=== PATIENT | female | born 1970 | race Caucasian/White ===

== ENCOUNTER 2020-07-06 14:32 | Emergency (ER) | payer OTHER ==
[~2020-07-06] VITALS: Ht 162.6 cm; Wt 127.0 kg
[2020-07-06] MEDS ORDERED: LATUDA80 MG PO (15:41)
[2020-07-06] MEDS ORDERED: MIRTAZAPINE45 MG PO (15:42)
[2020-07-06] MEDS ORDERED: CYMBALTA20 MG PO (15:42)
[2020-07-06] MEDS ORDERED: SAPHRIS10 MG SL (15:43)
[2020-07-06] MEDS ORDERED: LAMICTAL200 MG PO (15:43)
[2020-07-06] MEDS ORDERED: RITALIN LA20 MG PO (15:44)
[2020-07-06] MEDS ORDERED: PREDNISONE20 MG PO (15:51)
[2020-07-06] MEDS ORDERED: MORPHINE SULFAT15 MG PO (15:51)
--- OUTSIDE RECORDS SUMMARY | 2020-07-06 16:28 | XMS ---
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 Security Galvanizing Pot Runner Events No recent Security Events currently on file CRITERIA MET - 6 ED Visits in 6 Months - [facility] - 3 Facilities in 90 Days - [facility] - 2 Visits in 30 Days [facility] PH[facility]: [phone] Eleuterio has no Care Guidelines for this patient. Mitch VISIT COUNT (12 MO.) [address] [place] [address] TOTAL 18 NOTE: Visits indicate total known visits. ED/UCC VISIT TRACKING (12 MO.) 07/06/2020 14:34 [facility] TYPE: Emergency COMPLAINT: - R LEG/HIP PAIN/SWELLING 06/26/2020 16:55 [facility] TYPE: Emergency COMPLAINT: - Unspecified abdominal pain - Nausea with vomiting, unspecified DIAGNOSES: 1. Unspecified abdominal pain 2. Frequency of micturition 3. Fatty (change of) liver, not elsewhere classified 4. Acquired absence of other specified parts of digestive tract 5. Acquired absence of kidney 6. Nicotine dependence, cigarettes, uncomplicated 06/22/2020 11:53 [facility] TYPE: Emergency COMPLAINT: - CHEST PAIN 05/19/2020 12:[facility] [place] [facility] TYPE: Emergency DIAGNOSES: - Leg pain - Pain in right leg - Leg Pain (Non-traumatic) 05/13/2020 18:06 [facility] TYPE: Emergency DIAGNOSES: - Leg Pain - Leg Pain (Non-traumatic) - Pain in right thigh - Other reduced mobility - Essential (primary) hypertension 04/15/2020 17:29 [facility] TYPE: Emergency DIAGNOSES: - Leg Pain (Non-traumatic) - Pain in right leg - Chest Pain - Pleurodynia - Chest and leg pain; leg swelling 03/25/2020 17:38 [facility] TYPE: Emergency DIAGNOSES: - Chest Pain - Cough - Pneumonia, unspecified organism - Shortness of Breath - Sore Throat; Cough 03/07/2020 17:10 [facility] TYPE: Emergency DIAGNOSES: - Other chest pain - Shortness of Breath - Chest Pain 2020 13:18 [facility] TYPE: Emergency DIAGNOSES: - Chronic obstructive pulmonary disease with (acute) exacerbation - Shortness of Breath - Chills - Cough - Shortness Of Breath; Back Pain - Mild persistent asthma with (acute) exacerbation 01/29/2020 18:13 [facility] TYPE: Emergency DIAGNOSES: - Back Pain - Pain in thoracic spine 01/12/2020 13:18 [facility] TYPE: Emergency DIAGNOSES: - Contusion of left hand, initial encounter - Hand Injury - Hand Pain 12/14/2019 13:57 [facility] TYPE: Emergency DIAGNOSES: - Unspecified abdominal pain - Blood In Stool - Blood In Stool; Chills - Abdominal Pain - Fever (9 Weeks To 74 Years) 12/02/2019 16:58 [facility] TYPE: Emergency DIAGNOSES: - Abdominal Pain - Left lower quadrant pain - Abdominal Pain; Incontinence 11/20/2019 20:44 [facility] TYPE: Emergency DIAGNOSES: - Left lower quadrant pain - Abdominal Pain - Nausea,Blood in Stool 11/06/2019 15:02 [facility] [place] [facility] TYPE: Emergency DIAGNOSES: - Unspecified abdominal pain - Other chronic pain - abdominal pain - Melena 10/27/2019 17:18 [facility] [place] [facility] TYPE: Emergency DIAGNOSES: - Abdominal Pain; Blood in Stool - Abdominal Pain - Left lower quadrant pain 08/18/2019 16:48 [facility] TYPE: Emergency DIAGNOSES: - Shoulder Pain - Other acute postprocedural pain 08/11/2019 23:51 [facility] DIAGNOSES: - Post Op Pain - Pain in left shoulder - Post Op Problem - Post-op Problem - Other acute postprocedural pain INPATIENT VISIT TRACKING (12 MO.) No inpatient visits to display in this time frame [email or web address]
== END 2020-07-06 16:45 | disposition home or self-care (01) ==
LOC: ED 14:32
DX: M54.41 Lumbago with sciatica, right side (principal); Z87.891 Personal history of nicotine dependence; Z88.8 Allergy status to other drugs, medicaments and biological substances; Z88.0 Allergy status to penicillin; Z88.1 Allergy status to other antibiotic agents; Z88.6 Allergy status to analgesic agent; Z79.899 Other long term (current) drug therapy
CPT/HCPCS: 96372; 99283-25; J1100

== ENCOUNTER 2020-07-08 10:12 | Emergency (ER) | payer OTHER ==
[~2020-07-08 10:12] MED LIST: CYMBALTA20 MG PO; LAMICTAL200 MG PO; LATUDA80 MG PO; MIRTAZAPINE45 MG PO; MORPHINE SULFAT15 MG PO; PREDNISONE20 MG PO; RITALIN LA20 MG PO; SAPHRIS10 MG SL
--- OUTSIDE RECORDS SUMMARY | 2020-07-08 10:16 | XMS ---
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 Security Plate Straightener Events No recent Security Events currently on file CRITERIA MET - 6 ED Visits in 6 Months - [facility] - 3 Facilities in 90 Days - [facility] - 2 Visits in 30 Days [facility] PHONE: [phone] Eleuterio has no Care Guidelines for this patient. Mitch VISIT COUNT (12 MO.) [address] [place] [address] TOTAL 19 NOTE: Visits indicate total known visits. ED/UCC VISIT TRACKING (12 MO.) 07/08/2020 10:13 [facility] [place] TYPE: Emergency COMPLAINT: - ARMS AND LEGS SWELLING, KIDNEY PAIN 07/06/2020 14:34 [facility] [place] TYPE: Emergency COMPLAINT: - R LEG/HIP PAIN/SWELLING 06/26/2020 16:55 [facility] [place] [facility] COMPLAINT: - Unspecified abdominal pain - Nausea with vomiting, unspecified DIAGNOSES: 1. Unspecified abdominal pain 2. Frequency of micturition 3. Fatty (change of) liver, not elsewhere classified 4. Acquired absence of other specified parts of digestive tract 5. Acquired absence of kidney 6. Nicotine dependence, cigarettes, uncomplicated 06/22/2020 11:53 [facility] [place] TYPE: [facility] COMPLAINT: - CHEST PAIN 05/19/2020 12:56 [facility] DIAGNOSES: - Leg pain - Pain in right leg - Leg Pain (Non-traumatic) 05/13/2020 18:06 [facility] TYPE: Emergency DIAGNOSES: - Leg Pain - Leg Pain (Non-traumatic) - Pain in right thigh - Other reduced mobility - Essential (primary) hypertension 04/15/2020 17:29 [facility] TYPE: Emergency DIAGNOSES: - Leg Pain (Non-traumatic) - Pain in right leg - Chest Pain - Pleurodynia - Chest and leg pain; leg swelling 03/25/2020 17:38 [facility] TYPE: Emergency DIAGNOSES: - Chest Pain - Cough - Pneumonia, unspecified organism - Shortness of Breath - Sore Throat; Cough 03/07/2020 17:10 [facility] TYPE: Emergency DIAGNOSES: - Other chest pain - Shortness of Breath - Chest Pain 2020 13:18 [facility] TYPE: Emergency DIAGNOSES: - Chronic obstructive pulmonary disease with (acute) exacerbation - Shortness of Breath - Chills - Cough - Shortness Of Breath; Back Pain - Mild persistent asthma with (acute) exacerbation 01/29/2020 18:13 [facility] TYPE: Emergency DIAGNOSES: - Back Pain - Pain in thoracic spine 01/12/2020 13:18 [facility] TYPE: Emergency DIAGNOSES: - Contusion of left hand, initial encounter - Hand Injury - Hand Pain 12/14/2019 13:57 [facility] TYPE: Emergency DIAGNOSES: - Unspecified abdominal pain - Blood In Stool - Blood In Stool; Chills - Abdominal Pain - Fever (9 Weeks To 74 Years) 12/02/2019 16:58 [facility] TYPE: Emergency DIAGNOSES: - Abdominal Pain - Left lower quadrant pain - Abdominal Pain; Incontinence 11/20/2019 20:44 [facility] TYPE: Emergency DIAGNOSES: - Left lower quadrant pain - Abdominal Pain - Nausea,Blood in Stool 11/06/2019 15:02 [facility] TYPE: Emergency DIAGNOSES: - Unspecified abdominal pain - Other chronic pain - abdominal pain - Melena 10/27/2019 17:18 [facility] TYPE: Emergency DIAGNOSES: - Abdominal Pain; Blood in Stool - Abdominal Pain - Left lower quadrant pain 08/18/2019 16:48 [facility] TYPE: Emergency DIAGNOSES: - Shoulder Pain - Other acute postprocedural pain 08/11/2019 23:51 [facility] [place] TYPE: Emergency DIAGNOSES: - Post Op Pain - Pain in left shoulder - Post Op Problem - Post-op Problem - Other acute postprocedural pain INPATIENT VISIT TRACKING (12 MO.) No inpatient visits to display in this time frame [email or web address]
[2020-07-08] MEDS ORDERED: BACTRIM DS TAB1 EACH PO (13:22)
[2020-07-08] MEDS ORDERED: HYDROCODON-ACE1 EA10 PO (13:22)
[2020-07-13] MEDS ORDERED: ULTRAM50 MG PO (17:52)
[2020-07-13] MEDS ORDERED: AUGMENTIN 875-1 EACH PO (17:52)
[2020-07-13] MEDS ORDERED: ONDANSETRON ODT8 MG PO (17:55)
== END 2020-07-08 13:34 | disposition home or self-care (01) ==
LOC: ED 10:12
DX: N39.0 Urinary tract infection, site not specified (principal); Z87.891 Personal history of nicotine dependence; Z88.8 Allergy status to other drugs, medicaments and biological substances; Z88.0 Allergy status to penicillin; Z88.6 Allergy status to analgesic agent; Z88.1 Allergy status to other antibiotic agents; Z79.899 Other long term (current) drug therapy; Z79.52 Long term (current) use of systemic steroids
CPT/HCPCS: 80053; 81001; 83880; 85025; 87077; 87088; 87186; 94640; 99283

== ENCOUNTER 2020-07-10 14:02 | Emergency (ER) | payer OTHER ==
[~2020-07-10] VITALS: Ht 162.6 cm; Wt 127.0 kg
[~2020-07-10 14:02] MED LIST changes: +BACTRIM DS TAB1 EACH PO; +HYDROCODON-ACE1 EA10 PO
--- OUTSIDE RECORDS SUMMARY | 2020-07-10 14:04 | XMS ---
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 Security University Controller Events No recent Security Events currently on file CRITERIA MET - 6 ED Visits in 6 Months - [facility] - 3 Facilities in 90 Days - [facility] - 2 Visits in 30 Days [facility] Current PHONE: [phone] Eleuterio has no Care Guidelines for this patient. Mitch VISIT COUNT (12 MO.) [address] [place] [address] TOTAL 20 NOTE: Visits indicate total known visits. ED/UCC VISIT TRACKING (12 MO.) 07/10/2020 14:02 [facility] [place] TYPE: Emergency COMPLAINT: - FLANK PAIN/ URINE PROBLEM 07/08/2020 10:13 [facility] [place] TYPE: Emergency COMPLAINT: - ARMS AND LEGS SWELLING, KIDNEY PAIN 07/06/2020 14:34 [facility] [place] TYPE: Emergency COMPLAINT: - R LEG/HIP PAIN/SWELLING DIAGNOSES: - Other long-term (current) drug therapy - Allergy status to other antibiotic agents - Low back pain - Allergy status to penicillin - Personal history of nicotine dependence - Lumbago with sciatica, right side - Allergy status to other drugs, medicaments and biological substances - Allergy status to analgesic agent 06/26/2020 [facility]55 [facility] COMPLAINT: - Unspecified abdominal pain - Nausea with vomiting, unspecified DIAGNOSES: 1. Unspecified abdominal pain 2. Frequency of micturition 3. Fatty (change of) liver, not elsewhere classified 4. Acquired absence of other specified parts of digestive tract 5. Acquired absence of kidney 6. Nicotine dependence, cigarettes, uncomplicated 06/22/2020 11:53 [facility] TYPE: Emergency COMPLAINT: - CHEST PAIN 05/19/2020 12:56 [facility] TYPE: Emergency DIAGNOSES: - Leg pain - Pain in right leg - Leg Pain (Non-traumatic) 05/13/2020 18:06 [facility] [place] [facility] DIAGNOSES: - Leg Pain - Leg Pain (Non-traumatic) - Pain in right thigh - Other reduced mobility - Essential (primary) hypertension 04/15/2020 17:29 [facility] TYPE: Emergency DIAGNOSES: - Leg Pain (Non-traumatic) - Pain in right leg - Chest Pain - Pleurodynia - Chest and leg pain; leg swelling 03/25/2020 17:38 [facility] TYPE: Emergency DIAGNOSES: - Chest Pain - Cough - Pneumonia, unspecified organism - Shortness of Breath - Sore Throat; Cough 03/07/2020 17:10 [facility] TYPE: Emergency DIAGNOSES: - Other chest pain - Shortness of Breath - Chest Pain 2020 13:18 [facility] TYPE: Emergency DIAGNOSES: - Chronic obstructive pulmonary disease with (acute) exacerbation - Shortness of Breath - Chills - Cough - Shortness Of Breath; Back Pain - Mild persistent asthma with (acute) exacerbation 01/29/2020 18:13 [facility] TYPE: Emergency DIAGNOSES: - Back Pain - Pain in thoracic spine 01/12/2020 13:18 [facility] TYPE: Emergency DIAGNOSES: - Contusion of left hand, initial encounter - Hand Injury - Hand Pain 12/14/2019 13:57 [facility] TYPE: Emergency DIAGNOSES: - Unspecified abdominal pain - Blood In Stool - Blood In Stool; Chills - Abdominal Pain - Fever (9 Weeks To 74 Years) 12/02/2019 16:58 [facility] TYPE: Emergency DIAGNOSES: - Abdominal Pain - Left lower quadrant pain - Abdominal Pain; Incontinence 11/20/2019 20:44 [facility] TYPE: Emergency DIAGNOSES: - Left lower quadrant pain - Abdominal Pain - Nausea,Blood in Stool 11/06/2019 15:02 [facility] TYPE: Emergency DIAGNOSES: - Unspecified abdominal pain - Other chronic pain - abdominal pain - Melena 10/27/2019 17:18 [facility] TYPE: Emergency DIAGNOSES: - Abdominal Pain; Blood in Stool - Abdominal Pain - Left lower quadrant pain 08/18/2019 16:48 [facility] DIAGNOSES: - Shoulder Pain - Other acute postprocedural pain 08/11/2019 23:[facility] DIAGNOSES: - Post Op Pain - Pain in left shoulder - Post Op Problem - Post-op Problem - Other acute postprocedural pain INPATIENT VISIT TRACKING (12 MO.) No inpatient visits to display in this time frame [email or web address]
[2020-07-10] MEDS ORDERED: OXYCODONE HCL5 MG PO (19:17)
[2020-07-13] MEDS ORDERED: ULTRAM50 MG PO (17:52)
[2020-07-13] MEDS ORDERED: AUGMENTIN 875-1 EACH PO (17:52)
[2020-07-13] MEDS ORDERED: ONDANSETRON ODT8 MG PO (17:55)
== END 2020-07-10 19:33 | disposition home or self-care (01) ==
LOC: ED 14:02
DX: N39.0 Urinary tract infection, site not specified (principal); Z20.822 Contact with and (suspected) exposure to COVID-19; Z87.891 Personal history of nicotine dependence; Z88.5 Allergy status to narcotic agent; Z88.8 Allergy status to other drugs, medicaments and biological substances; Z88.0 Allergy status to penicillin; Z88.6 Allergy status to analgesic agent; Z88.1 Allergy status to other antibiotic agents; Z79.899 Other long term (current) drug therapy; Z79.52 Long term (current) use of systemic steroids
CPT/HCPCS: 74176; 80053; 81001; 83605; 85025; 87040; 87077; 87088; 87186; 96374; 96375; 99284-25; C9803; J1170; J2270; J2405; J7030; U0003

== ENCOUNTER 2020-07-16 12:27 | Emergency (ER) | payer OTHER ==
[~2020-07-16] VITALS: Ht 162.6 cm; Wt 127.0 kg
[~2020-07-16 12:27] MED LIST changes: +AUGMENTIN 875-1 EACH PO; +ONDANSETRON ODT8 MG PO; +OXYCODONE HCL5 MG PO; +ULTRAM50 MG PO
--- OUTSIDE RECORDS SUMMARY | 2020-07-16 12:32 | XMS ---
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 Security Security System Analyst Events No recent Security Events currently on file CRITERIA MET - 6 ED Visits in 6 Months - [facility] - 3 Facilities in 90 Days - [facility] - 2 Visits in 30 Days [facility] Current PHONE: [phone] MILAGRO SANDOVAL Physician Fabric Worker Fitter 07/15/2020-Current PHONE: [phone] Eleuterio has no Care Guidelines for this patient. Care History Medical/Surgical 07/15/2020 [facility] - W SPOKE WITH PATIENT- [facility]W INFORMED PATIENT APT FOR ESTABLISHING CARE WITH MILAGRO SANDOVAL CAN BE MOVED UP TO TODAY 07/15/20 AT 11:30AM. PATIENT AGREED AND HAS TRANSPORTATION AVAILABLE. 07/12/2020 [facility] - W HAS CALLED PATIENT 3X-NO ANSWER-VOICEMAIL BOX IS NOT SET UP. - [facility] CONTACTED [facility]- PATIENT HAS AN APT WITH DR OLIVAS ON 07/21/20 TO ESTABLISH CARE. - CHW PROVIDED RECENT ED CLINICALS TO PROVIDER FOR REVIEW AND TO SEE IF AN EARLIER APT CAN BE MADE. Mitch VISIT COUNT (12 MO.) 2 [address] TOTAL 22 NOTE: Visits indicate total known visits. ED/UCC VISIT TRACKING (12 MO.) 07/16/2020 12:29 [facility] [place] TYPE: Emergency COMPLAINT: - L SIDE FLANK, NAUSEA, URINE PROBLEM 07/13/2020 14:06 [facility] [place] TYPE: Emergency COMPLAINT: - BLADDER ISSUES DIAGNOSES: - Allergy status to other antibiotic agents - Unspecified abdominal pain - Allergy status to other drugs, medicaments and biological substances - Other usp (current) drug therapy - Allergy status to analgesic agent - Allergy status to penicillin - Personal history of nicotine dependence - long-term (current) use of systemic steroids 07/10/2020 14:02 [facility] [place] TYPE: Emergency COMPLAINT: - FLANK PAIN/ URINE PROBLEM DIAGNOSES: - Urinary tract infection, site not specified - Other usp (current) drug therapy - Allergy status to penicillin - Allergy status to other antibiotic agents - rat exterminator (current) use of systemic steroids - Personal history of nicotine dependence - Allergy status to analgesic agent - Allergy status to other drugs, medicaments and biological substances - Allergy status to narcotic agent - Unspecified abdominal pain 07/08/2020 10:13 [facility] [place] TYPE: Emergency COMPLAINT: - ARMS AND LEGS SWELLING, KIDNEY PAIN DIAGNOSES: - Urinary tract infection, site not specified - rat exterminator (current) use of systemic steroids - Frequency of micturition - Allergy status to other drugs, medicaments and biological substances - Allergy status to other antibiotic agents - Allergy status to analgesic agent - Personal history of nicotine dependence - Other usp (current) drug therapy - Allergy status to penicillin 07/06/2020 14:34 [facility] [place] TYPE: Emergency COMPLAINT: - R LEG/HIP PAIN/SWELLING DIAGNOSES: - Other rat exterminator (current) drug therapy - Allergy status to other antibiotic agents - Low back pain - Allergy status to penicillin - Personal history of nicotine dependence - Lumbago with sciatica, right side - Allergy status to other drugs, medicaments and biological substances - Allergy status to analgesic agent 06/26/2020 16:55 [facility] TYPE: Emergency COMPLAINT: - Unspecified abdominal pain - Nausea with vomiting, unspecified DIAGNOSES: 1. Unspecified abdominal pain 2. Frequency of micturition 3. Fatty (change of) liver, not elsewhere classified 4. Acquired absence of other specified parts of digestive tract 5. Acquired absence of kidney 6. Nicotine dependence, cigarettes, uncomplicated 06/22/2020 11:53 [facility] TYPE: Emergency COMPLAINT: - CHEST PAIN 05/19/2020 12:56 [facility] TYPE: Emergency DIAGNOSES: - Leg pain - Pain in right leg - Leg Pain (Non-traumatic) 05/13/2020 18:06 [facility] TYPE: Emergency DIAGNOSES: - Leg Pain - Leg Pain (Non-traumatic) - Pain in right thigh - Other reduced mobility - Essential (primary) hypertension 04/15/2020 17:29 [facility] TYPE: Emergency DIAGNOSES: - Leg Pain (Non-traumatic) - Pain in right leg - Chest Pain - Pleurodynia - Chest and leg pain; leg swelling 03/25/2020 17:38 [facility] TYPE: Emergency DIAGNOSES: - Chest Pain - Cough - Pneumonia, unspecified organism - Shortness of Breath - Sore Throat; Cough 03/07/2020 17:10 [facility] TYPE: Emergency DIAGNOSES: - Other chest pain - Shortness of Breath - Chest Pain 2020 13:18 [facility] TYPE: Emergency DIAGNOSES: - Chronic obstructive pulmonary disease with (acute) exacerbation - Shortness of Breath - Chills - Cough - Shortness Of Breath; Back Pain - Mild persistent asthma with (acute) exacerbation 01/29/2020 18:13 [facility] TYPE: Emergency DIAGNOSES: - Back Pain - Pain in thoracic spine 01/12/2020 13:18 [facility] TYPE: Emergency DIAGNOSES: - Contusion of left hand, initial encounter - Hand Injury - Hand Pain 12/14/2019 13:57 [facility] TYPE: Emergency DIAGNOSES: - Unspecified abdominal pain - Blood In Stool - Blood In Stool; Chills - Abdominal Pain - Fever (9 Weeks To 74 Years) 12/02/2019 16:58 [facility] TYPE: Emergency DIAGNOSES: - Abdominal Pain - Left lower quadrant pain - Abdominal Pain; Incontinence 11/20/2019 20:44 [facility] TYPE: Emergency DIAGNOSES: - Left lower quadrant pain - Abdominal Pain - Nausea,Blood in Stool 11/06/2019 15:02 [facility] [place] TYPE: Emergency DIAGNOSES: - Unspecified abdominal pain - Other chronic pain - abdominal pain - Melena 10/27/2019 17:18 [facility] DIAGNOSES: - Abdominal Pain; Blood in Stool - Abdominal Pain - Left lower quadrant pain Plus 2 More Visits INPATIENT VISIT TRACKING (12 MO.) No inpatient visits to display in this time frame [email or web address]
== END 2020-07-16 15:56 | disposition home or self-care (01) ==
LOC: ED 12:27
DX: N39.0 Urinary tract infection, site not specified (principal); Z87.891 Personal history of nicotine dependence; Z88.0 Allergy status to penicillin; Z88.8 Allergy status to other drugs, medicaments and biological substances; Z88.6 Allergy status to analgesic agent; Z88.5 Allergy status to narcotic agent; Z79.899 Other long term (current) drug therapy; Z79.52 Long term (current) use of systemic steroids
CPT/HCPCS: 80053; 81001; 85025; 87077; 87088; 87186; 96374; 99284-25; J1335

== ENCOUNTER 2020-07-20 14:10 | Emergency (ER) | payer OTHER ==
[~2020-07-20] VITALS: Ht 162.6 cm; Wt 127.0 kg
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
== END 2020-07-20 16:45 | disposition home or self-care (01) ==
LOC: ED 14:10
DX: N39.0 Urinary tract infection, site not specified (principal); Z87.891 Personal history of nicotine dependence; Z88.0 Allergy status to penicillin; Z88.8 Allergy status to other drugs, medicaments and biological substances; Z88.6 Allergy status to analgesic agent; Z88.5 Allergy status to narcotic agent; Z88.1 Allergy status to other antibiotic agents; Z79.899 Other long term (current) drug therapy; Z79.52 Long term (current) use of systemic steroids
CPT/HCPCS: 51701; 81001; 87088; 99284-25; J1335

== ENCOUNTER 2020-10-15 21:19 | Emergency (ER) | payer OTHER ==
[~2020-10-15] VITALS: Ht 162.6 cm; Wt 137.0 kg
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
[2020-10-15] MEDS ORDERED: CYCLOBENZAPRINE10 MG PO (23:09)
== END 2020-10-16 | disposition home or self-care (01) ==
LOC: ED 21:19
DX: M25.552 Pain in left hip (principal); M79.605 Pain in left leg; G89.29 Other chronic pain; F17.200 Nicotine dependence, unspecified, uncomplicated; Z88.0 Allergy status to penicillin; Z88.8 Allergy status to other drugs, medicaments and biological substances; Z88.6 Allergy status to analgesic agent; Z88.5 Allergy status to narcotic agent; Z88.1 Allergy status to other antibiotic agents; Z79.899 Other long term (current) drug therapy; Z79.52 Long term (current) use of systemic steroids
CPT/HCPCS: 93971; 99283-25

== ENCOUNTER 2022-01-23 10:00 | Emergency (ER) | payer OTHER ==
[~2022-01-23] VITALS: Ht 162.6 cm; Wt 127.0 kg
[~2022-01-23 10:00] MED LIST changes: +CYCLOBENZAPRINE10 MG PO
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
== END 2022-01-23 13:18 | disposition home or self-care (01) ==
LOC: ED 10:00
DX: R10.9 Unspecified abdominal pain (principal); F17.200 Nicotine dependence, unspecified, uncomplicated; Z88.0 Allergy status to penicillin; Z88.5 Allergy status to narcotic agent; Z88.8 Allergy status to other drugs, medicaments and biological substances; Z79.52 Long term (current) use of systemic steroids; Z79.899 Other long term (current) drug therapy
CPT/HCPCS: 36415; 74177; 80053; 81001; 83690; 85025; J2270; J2405; J7030; Q9967

== ENCOUNTER 2022-02-04 14:52 | Emergency (ER) | payer OTHER ==
[~2022-02-04] VITALS: Ht 162.6 cm; Wt 125.6 kg
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
== END 2022-02-04 16:53 | disposition home or self-care (01) ==
LOC: ED 14:52
DX: R10.32 Left lower quadrant pain (principal); F17.200 Nicotine dependence, unspecified, uncomplicated; Z88.0 Allergy status to penicillin; Z88.5 Allergy status to narcotic agent; Z88.1 Allergy status to other antibiotic agents; Z88.8 Allergy status to other drugs, medicaments and biological substances
CPT/HCPCS: 96374; 99284-25; J1170; J2550

== ENCOUNTER 2022-02-28 16:41 | Emergency (ER) | payer OTHER ==
[~2022-02-28] VITALS: Ht 162.6 cm; Wt 125.6 kg
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
== END 2022-02-28 19:23 | disposition home or self-care (01) ==
LOC: ED 16:41
DX: R10.32 Left lower quadrant pain (principal); F17.200 Nicotine dependence, unspecified, uncomplicated; Z88.0 Allergy status to penicillin; Z88.8 Allergy status to other drugs, medicaments and biological substances; Z79.899 Other long term (current) drug therapy
CPT/HCPCS: 96374; 96375; 99284-25; J1170; J2405; J2550

== ENCOUNTER 2022-03-04 10:55 | Emergency (ER) | payer OTHER ==
[~2022-03-04] VITALS: Ht 162.6 cm; Wt 121.1 kg
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
[2022-03-04] MEDS ORDERED: TRAZODONE HCL50 MG PO (11:14)
[2022-03-04] MEDS ORDERED: ZOLPIDEM TARTRA10 MG PO (11:14)
[2022-03-04] MEDS ORDERED: OXYCODON-ACETA1 EAC2 PO (11:15)
[2022-03-04] MEDS ORDERED: CIPRO500 MG PO (16:15)
[2022-03-07] MEDS ORDERED: BACTRIM DS TAB1 EACH PO (15:46)
[2022-03-07] MEDS ORDERED: PYRIDIUM200 MG PO (15:46)
== END 2022-03-04 16:26 | disposition home or self-care (01) ==
LOC: ED 10:55
DX: N39.0 Urinary tract infection, site not specified (principal); R19.7 Diarrhea, unspecified; F17.200 Nicotine dependence, unspecified, uncomplicated; Z88.0 Allergy status to penicillin; Z88.8 Allergy status to other drugs, medicaments and biological substances; Z88.1 Allergy status to other antibiotic agents; Z88.6 Allergy status to analgesic agent; Z79.899 Other long term (current) drug therapy
CPT/HCPCS: 36415; 74177; 80053; 81001; 83605; 83690; 83735; 85025; 87045; 87088; 87493; 96361; 96375; 96376; 99284-25; J0744; J2270; J2405; J3010; J7030; Q9967

== ENCOUNTER 2022-03-31 15:24 | Emergency (ER) | payer OTHER ==
[~2022-03-31] VITALS: Ht 162.6 cm; Wt 123.3 kg
[~2022-03-31 15:24] MED LIST changes: +CIPRO500 MG PO; +OXYCODON-ACETA1 EAC2 PO; +PYRIDIUM200 MG PO; +TRAZODONE HCL50 MG PO; +ZOLPIDEM TARTRA10 MG PO
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
[2022-03-31] MEDS ORDERED: ATIVAN1 MG PO (17:19)
--- NOTE | 2022-04-01 06:55 | EKG ---
[facility] [address] [place] [address] Signed Normal sinus rhythm Right atrial enlargement Nonspecific ST abnormality Abnormal ECG No previous ECGs available Confirmed by JULY HUERTA MD ([id number]) on 04/01/2022 6:55:02 AM Electronically Signed By: JULY HUERTA MD 04/01/22 0655 PATIENT NAME: LEA GARCIA GRACE Electrocardiogram DATE OF : 70 PHYSICIAN: JULY HUERTA MD REPORT #: [id number] REPORT IS CONFIDENTIAL AND NOT TO BE RELEASED WITHOUT AUTHORIZATION
== END 2022-03-31 17:35 | disposition home or self-care (01) ==
LOC: ED 15:24
DX: F43.22 Adjustment disorder with anxiety (principal); R07.9 Chest pain, unspecified; G89.29 Other chronic pain; R94.31 Abnormal electrocardiogram [ECG] [EKG]; Z79.899 Other long term (current) drug therapy; Z79.891 Long term (current) use of opiate analgesic
CPT/HCPCS: 36415; 71045; 80053; 83735; 84484; 85025; 93005; 93010; 96374; 96375; 96376; 99285-25; A9270; A9270-GY; J2405

== ENCOUNTER 2022-04-02 16:56 | Emergency (ER) | payer OTHER ==
[~2022-04-02] VITALS: Ht 162.6 cm; Wt 123.3 kg
[~2022-04-02 16:56] MED LIST changes: +ATIVAN1 MG PO
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
[2022-04-02] MEDS ORDERED: ONDANSETRON ODT8 MG PO (18:26)
[2022-04-02] MEDS ORDERED: NEURONTIN300 MG PO (18:26)
--- NOTE | 2022-04-05 15:30 | EKG ---
[facility] [address] [facility] [place], [place] [address] Signed Normal sinus rhythm Possible Anterior infarct , age undetermined Abnormal ECG When compared with ECG of 31-MAR-2022 15:22, No significant change was found Confirmed by LA NENA CAICEDO MD ([id number]) on 04/05/2022 3:30:03 PM Electronically Signed By: LA NENA CAICEDO MD 04/05/22 1530 PATIENT NAME: MICHAELHERNANDEZLEA Electrocardiogram DATE OF : 70 PHYSICIAN: LA NENA CAICEDO MD REPORT #: [id number] REPORT IS CONFIDENTIAL AND NOT TO BE RELEASED WITHOUT AUTHORIZATION
== END 2022-04-02 18:49 | disposition home or self-care (01) ==
LOC: ED 16:56
DX: R07.89 Other chest pain (principal); G89.4 Chronic pain syndrome; E66.9 Obesity, unspecified; E11.9 Type 2 diabetes mellitus without complications; F17.200 Nicotine dependence, unspecified, uncomplicated; Z88.0 Allergy status to penicillin; Z88.8 Allergy status to other drugs, medicaments and biological substances; Z88.6 Allergy status to analgesic agent; Z88.5 Allergy status to narcotic agent; Z88.1 Allergy status to other antibiotic agents; Z79.899 Other long term (current) drug therapy; Z20.822 Contact with and (suspected) exposure to COVID-19
CPT/HCPCS: 36415; 71045; 80053; 84484; 85025; 87502; 93005; 93010; 96374; 96375; 96376; 99285-25; C9803; J2060; J2405; U0003

== ENCOUNTER 2022-04-13 14:10 | Emergency (ER) | payer OTHER ==
[~2022-04-13] VITALS: Ht 162.6 cm; Wt 121.9 kg
[~2022-04-13 14:10] MED LIST changes: +NEURONTIN300 MG PO
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
[2022-04-13] MEDS ORDERED: CLONAZEPAM0.5 MG PO (16:05)
== END 2022-04-13 17:36 | disposition home or self-care (01) ==
LOC: ED 14:10
DX: R10.32 Left lower quadrant pain (principal); F17.200 Nicotine dependence, unspecified, uncomplicated; Z88.0 Allergy status to penicillin; Z88.8 Allergy status to other drugs, medicaments and biological substances; Z88.6 Allergy status to analgesic agent; Z88.5 Allergy status to narcotic agent; Z88.1 Allergy status to other antibiotic agents
CPT/HCPCS: 81001; 96372; 99284; A9270; J1170; J2550

== ENCOUNTER 2022-04-29 09:06 | Emergency (ER) | payer OTHER ==
[~2022-04-29] VITALS: Ht 162.6 cm; Wt 121.9 kg
[~2022-04-29 09:06] MED LIST changes: +CLONAZEPAM0.5 MG PO
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
== END 2022-04-29 16:30 | disposition home or self-care (01) ==
LOC: ED 09:06
DX: R11.2 Nausea with vomiting, unspecified (principal); R10.32 Left lower quadrant pain; R91.1 Solitary pulmonary nodule; Z20.822 Contact with and (suspected) exposure to COVID-19; F17.200 Nicotine dependence, unspecified, uncomplicated; Z88.0 Allergy status to penicillin; Z88.8 Allergy status to other drugs, medicaments and biological substances; Z88.6 Allergy status to analgesic agent; Z88.5 Allergy status to narcotic agent; Z88.1 Allergy status to other antibiotic agents; Z79.899 Other long term (current) drug therapy
CPT/HCPCS: 36415; 71045; 71250; 74177; 80053; 81001; 83690; 85025; 87088; 87502; 96375; 99284-25; C9803; J1170; J2405; J2550; J7030; Q9967; U0003

== ENCOUNTER 2022-05-12 16:30 | Emergency (ER) | payer OTHER ==
[~2022-05-12] VITALS: Ht 162.6 cm; Wt 121.9 kg
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
[2022-05-12] MEDS ORDERED: PROMETHAZI6.25 MG/5 PO (16:45)
[2022-05-12] MEDS ORDERED: DULOXETINE HCL30 MG PO (16:46)
[2022-05-12] MEDS ORDERED: METHYLPHENIDATE10 MG PO (16:46)
--- NOTE | 2022-05-13 07:02 | EKG ---
[facility] [address] [facility] [place] [address] Signed Normal sinus rhythm Possible Left atrial enlargement Borderline ECG When compared with ECG of 02-APR-2022 16:54, Borderline criteria for Anterior infarct are no longer present Confirmed by JULY HUERTA MD ([id number]) on 05/13/2022 7:02:15 AM Electronically Signed By: JULY HUERTA MD 05/13/22 0702 PATIENT NAME: LEA GARCIA GRACE Electrocardiogram DATE OF : 70 PHYSICIAN: JULY HUERTA MD REPORT #: [id number] REPORT IS CONFIDENTIAL AND NOT TO BE RELEASED WITHOUT AUTHORIZATION
== END 2022-05-12 18:30 | disposition home or self-care (01) ==
LOC: ED 16:30
DX: J06.9 Acute upper respiratory infection, unspecified (principal); Z20.822 Contact with and (suspected) exposure to COVID-19; F17.200 Nicotine dependence, unspecified, uncomplicated; Z88.0 Allergy status to penicillin; Z88.8 Allergy status to other drugs, medicaments and biological substances; Z88.5 Allergy status to narcotic agent; Z88.1 Allergy status to other antibiotic agents; Z79.899 Other long term (current) drug therapy
CPT/HCPCS: 71045; 87502; 93005; 93010; 96372; 99284-25; A9270; C9803; J1170; J2550; U0003

== ENCOUNTER 2022-05-13 12:56 | Emergency (ER) | payer OTHER ==
[~2022-05-13] VITALS: Ht 162.6 cm; Wt 121.9 kg
[~2022-05-13 12:56] MED LIST changes: +DULOXETINE HCL30 MG PO; +METHYLPHENIDATE10 MG PO; +PROMETHAZI6.25 MG/5 PO
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
== END 2022-05-13 15:13 | disposition home or self-care (01) ==
LOC: ED 12:56
DX: R11.2 Nausea with vomiting, unspecified (principal); J06.9 Acute upper respiratory infection, unspecified; F17.200 Nicotine dependence, unspecified, uncomplicated; Z88.0 Allergy status to penicillin; Z88.8 Allergy status to other drugs, medicaments and biological substances; Z88.5 Allergy status to narcotic agent; Z88.6 Allergy status to analgesic agent; Z79.899 Other long term (current) drug therapy
CPT/HCPCS: 36415; 80053; 83690; 83735; 85025; 99284; A9270

== ENCOUNTER 2022-06-04 09:39 | Emergency (ER) | payer OTHER ==
[~2022-06-04] VITALS: Ht 162.6 cm; Wt 121.9 kg
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
== END 2022-06-04 13:47 | disposition home or self-care (01) ==
LOC: ED 09:39
DX: S13.9XXA Sprain of joints and ligaments of unspecified parts of neck, initial encounter (principal); F17.200 Nicotine dependence, unspecified, uncomplicated; Z98.1 Arthrodesis status; Z88.0 Allergy status to penicillin; Z88.8 Allergy status to other drugs, medicaments and biological substances; Z88.5 Allergy status to narcotic agent; Z88.1 Allergy status to other antibiotic agents; W01.0XXA Fall on same level from slipping, tripping and stumbling without subsequent striking against object, initial encounter
CPT/HCPCS: 72125; 96372; 99284-25; J2550

== ENCOUNTER 2022-06-06 13:10 | Emergency (ER) | payer OTHER ==
[~2022-06-06] VITALS: Ht 162.6 cm; Wt 121.9 kg
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
== END 2022-06-06 15:03 | disposition home or self-care (01) ==
LOC: ED 13:10
DX: S06.0XAA Concussion with loss of consciousness status unknown, initial encounter (principal); W19.XXXA Unspecified fall, initial encounter; F17.200 Nicotine dependence, unspecified, uncomplicated; Z88.0 Allergy status to penicillin; Z88.8 Allergy status to other drugs, medicaments and biological substances; Z88.6 Allergy status to analgesic agent; Z88.5 Allergy status to narcotic agent; Z88.1 Allergy status to other antibiotic agents; Z79.899 Other long term (current) drug therapy
CPT/HCPCS: 70450; 96372; 99284-25; J2550

== ENCOUNTER 2022-07-25 10:43 | Emergency (ER) | payer OTHER ==
[~2022-07-25] VITALS: Ht 162.6 cm; Wt 123.4 kg
[~2022-07-25 10:43] MED LIST changes: +PROTONIX40 MG PO; +REGLAN10 MG PO
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
[2022-07-25] MEDS ORDERED: BACTRIM 400-801 EACH PO (16:15)
== END 2022-07-25 16:57 | disposition home or self-care (01) ==
LOC: ED 10:43
DX: R10.32 Left lower quadrant pain (principal); F43.10 Post-traumatic stress disorder, unspecified; F17.200 Nicotine dependence, unspecified, uncomplicated; Z88.0 Allergy status to penicillin; Z88.8 Allergy status to other drugs, medicaments and biological substances; Z88.6 Allergy status to analgesic agent; Z88.5 Allergy status to narcotic agent; Z88.1 Allergy status to other antibiotic agents; Z79.899 Other long term (current) drug therapy
CPT/HCPCS: 36415; 51701; 74177; 80053; 81001; 85025; 99284-25; J1170; J2405; J7030; Q9967

== ENCOUNTER 2022-08-01 08:07 | Emergency (ER) | payer OTHER ==
[~2022-08-01] VITALS: Ht 162.6 cm; Wt 128.7 kg
[~2022-08-01 08:07] MED LIST changes: +BACTRIM 400-801 EACH PO
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
[2022-08-01] MEDS ORDERED: BACTRIM DS TAB1 EACH PO (13:32)
== END 2022-08-01 13:51 | disposition home or self-care (01) ==
LOC: ED 08:07
DX: N39.0 Urinary tract infection, site not specified (principal); F43.10 Post-traumatic stress disorder, unspecified; F17.210 Nicotine dependence, cigarettes, uncomplicated; Z88.0 Allergy status to penicillin; Z88.8 Allergy status to other drugs, medicaments and biological substances; Z88.6 Allergy status to analgesic agent; Z88.5 Allergy status to narcotic agent; Z88.1 Allergy status to other antibiotic agents; Z79.899 Other long term (current) drug therapy
CPT/HCPCS: 36415; 80053; 81001; 83605; 85025; 96374; 99284-25; A9270; J1790; J7121

== ENCOUNTER 2022-08-19 14:20 | Emergency (ER) | payer OTHER ==
[~2022-08-19] VITALS: Ht 162.6 cm; Wt 128.7 kg
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
== END 2022-08-19 17:06 | disposition home or self-care (01) ==
LOC: ED 14:20
DX: R10.33 Periumbilical pain (principal); F43.10 Post-traumatic stress disorder, unspecified; F17.200 Nicotine dependence, unspecified, uncomplicated; Z88.0 Allergy status to penicillin; Z88.8 Allergy status to other drugs, medicaments and biological substances; Z88.6 Allergy status to analgesic agent; Z88.5 Allergy status to narcotic agent; Z88.1 Allergy status to other antibiotic agents; Z79.899 Other long term (current) drug therapy
CPT/HCPCS: 36415; 51701; 74177; 80053; 81001; 83690; 85025; 99284-25; J1170; J2405; J7030; Q9967

== ENCOUNTER 2022-09-01 14:11 | Emergency (ER) | payer OTHER ==
[~2022-09-01] VITALS: Ht 162.6 cm; Wt 128.7 kg
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
== END 2022-09-01 17:05 | disposition home or self-care (01) ==
LOC: ED 14:11
DX: R10.9 Unspecified abdominal pain (principal); R51.9 Headache, unspecified; F43.10 Post-traumatic stress disorder, unspecified; F17.200 Nicotine dependence, unspecified, uncomplicated; Z88.0 Allergy status to penicillin; Z88.8 Allergy status to other drugs, medicaments and biological substances; Z88.6 Allergy status to analgesic agent; Z88.5 Allergy status to narcotic agent; Z88.1 Allergy status to other antibiotic agents; Z79.899 Other long term (current) drug therapy
CPT/HCPCS: 96372; 99283; A9270-GY; J1790

== ENCOUNTER 2022-09-15 08:50 | Emergency (ER) | payer OTHER ==
[~2022-09-15] VITALS: Ht 162.6 cm; Wt 124.3 kg
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
[2022-09-15 11:30] VITALS: BP 148/75
== END 2022-09-15 11:30 | disposition home or self-care (01) ==
LOC: ED 08:50
DX: R10.9 Unspecified abdominal pain (principal); F17.200 Nicotine dependence, unspecified, uncomplicated; Z88.0 Allergy status to penicillin; Z88.1 Allergy status to other antibiotic agents; Z88.5 Allergy status to narcotic agent; Z88.8 Allergy status to other drugs, medicaments and biological substances; Z79.899 Other long term (current) drug therapy
CPT/HCPCS: 96372; 99283; A9270; J1170

== ENCOUNTER 2022-09-16 11:55 | Emergency (ER) | payer OTHER ==
[~2022-09-16] VITALS: Ht 162.6 cm; Wt 124.3 kg
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
[2022-09-16 17:15] VITALS: BP 172/125
== END 2022-09-16 17:15 | disposition home or self-care (01) ==
LOC: ED 11:55
DX: R10.9 Unspecified abdominal pain (principal); K43.9 Ventral hernia without obstruction or gangrene; F17.200 Nicotine dependence, unspecified, uncomplicated; Z88.0 Allergy status to penicillin; Z88.5 Allergy status to narcotic agent; Z88.1 Allergy status to other antibiotic agents; Z88.8 Allergy status to other drugs, medicaments and biological substances; Z79.899 Other long term (current) drug therapy
CPT/HCPCS: 96372; 99283; J1790

== ENCOUNTER 2022-09-20 08:30 | Day surgery (SDC) | payer OTHER ==
[2022-09-12 09:17] VITALS: BP 132/71
[~2022-09-20] VITALS: Ht 162.6 cm; Wt 119.1 kg
[2022-09-20 08:47] VITALS: BP 114/47
[2022-09-20] MEDS ORDERED: VITAMIN D350 MC3 PO (08:54)
--- NOTE | 2022-09-20 12:49 | NUR ---
09/20/22 Dangelo9 Penny Keating SN 1242 PATIENT ARRIVES TO PACU UNRESPONSIVE TO PAINFUL STIMULI. AIRWAY IN PLACE AND NEEDS JAW THRUST. RESP EVEN AND MIDLY UNLABORED WITH INTERVENTION. MASK AT 10 LITERS.
[2022-09-20 13:58] VITALS: BP 114/70
--- NOTE | 2022-09-20 14:03 | NUR ---
PATIENT BACK IN DAY SURGERY ROOM FROM PACU. RATES PAIN 8/10. EATING CRACKERS AND PUDDING, THEN WILL MEDICATE. VS CHECKED. ABDOMINAL DRESSING CLEAN, DRY AND INTACT. LEFT GROIN DRESSING CLEAN, DRY AND INTACT. IV SITE WNL. SCDs ON. CALL LIGHT WITHIN REACH.
[2022-09-20] MEDS ORDERED: OXYCODONE HCL10 MG PO (14:46)
[2022-09-20] MEDS ORDERED: CLEOCIN HCL300 MG PO (14:46)
[2022-09-20] MEDS ORDERED: ACETAMINOPHEN500 M1 PO (14:47)
[2022-09-20 15:00] VITALS: BP 119/72
--- NOTE | 2022-09-20 15:25 | NUR ---
1420: PATIENT MEDICATED FOR PAIN WITH 2 TABS OF PERCOCET. 1440: PATIENT ASSISTED OOB AND TO GET DRESSED. PATIENT SITTING ON SIDE OF BED. 1500: VS CHECKED. DISCHARGE INSTRUCTIONS GIVEN TO PATIENT. PATIENT ASSISTED TO WALK TO BATHROOM. VOID WITHOUT DIFFICULTY. GAIT STEADY BACK TO ROOM. 1512: IV DC'D WNL. TIP INTACT. DRESSING APPLIED. PATIENT DISCHARGED TO HOME VIA WHEELCHAIR WITH MOTHER.
--- NOTE | 2022-09-21 06:56 | OR ---
[facility] [address] [place], [place] [address] Signed DATE OF OPERATION: 09/20/2022 SURGEON: Nadia Dickerson MD PREOPERATIVE DIAGNOSIS: Incarcerated periumbilical incisional hernia. POSTOPERATIVE DIAGNOSES: 1. A 4 mm incarcerated supraumbilical epigastric hernia. 2. A 8 mm incarcerated umbilical hernia. 3. A 4 mm incarcerated infraumbilical trocar site incisional hernia. PROCEDURES: 1. Primary repair of epigastric hernia. 2. Primary repair with intra-abdominal 4.3 cm round Ventralex mesh. 3. Primary repair infraumbilical incisional hernia. 4. Wound cultures of infected left proximal thigh subcutaneous cyst x2. ESTIMATED BLOOD LOSS: None. INDICATIONS: Lea is a 52-year-old obese diabetic controlled female, asked to see me for a periumbilical incarcerated symptomatic incisional hernia. She has been through a number of different surgeries in her life including an open cholecystectomy and an open right nephrectomy. She has also had two laparoscopic surgeries with the trocar placed through the infraumbilical position. She has had a partial hysterectomy and looks like an appendectomy as well. She has been having pain at the umbilical site for several months now. She has been to the ER several times. She said it is worse with activities. This is worse when she has a bowel movement. It is worse when she has to lean up against the countertop. She said it is affecting her daily life. When we checked, she had at least three CT scans of the abdomen and pelvis. I reviewed each one myself. One radiologist mentions periumbilical hernia, the other two to do not. Upon my review, it looks like she has an umbilical and maybe a supraumbilical hernia as well. It measured around 1.2 to 1.8 cm. In the office, I had given Lea a booklet on hernias. It was very difficult to examine her due to her body habitus and her obesity. I had reviewed with her the difference between an umbilical and an incisional hernia. We had discussed and reviewed primary suture repair versus mesh repair and the brochure. She understands that this is a day surgery and she will be going home afterwards. There is risk including, but not limited to bleeding, infection, scarring, change in contour of the skin, damage to the Electronically Signed By: NADIA DICKERSON MD 09/21/22 0656 PATIENT NAME: LEA GARCIA GRACE OPERATIVE REPORT DATE OF : 70 REPORT #: [id number] PHYSICIAN: NADIA DICKERSON MD PCP: OSBALDO PFEIFFER MD REPORT IS CONFIDENTIAL AND NOT TO BE RELEASED WITHOUT AUTHORIZATION [facility] [address] [place] [id number] Signed bowel, infection of mesh requiring removal, recurrent hernias and chronic pain. She had expressed understanding and wished to proceed. DESCRIPTION OF PROCEDURE: I met with Lea and her caregiver in our preop area. We agreed on the periumbilical site and marked that appropriately. I explained to Lea we would start with a vertical midline supraumbilical incision and proceed from there. In addition, she has multiple drug allergies. She declined our preoperative Ancef per our pharmacy protocol. She therefore received clindamycin and did quite well in that regard. She was then taken into the operating room and placed in the supine position under general endotracheal tube anesthesia. She was given the preoperative clindamycin along with subcutaneous heparin. SCDs were utilized. She had been prepped and draped in the usual sterile fashion. We noticed two chronically draining cysts in the proximal medial left thigh between the mons pubis and her thigh. We expressed the pus and took wound cultures. That area was then prepped and draped in the usual sterile fashion last. After this, we proceeded with a standard supraumbilical midline incision about 3 cm in length. We carried it down and around the hernia and found that she had a small 4 mm epigastric hernia with incarcerated preperitoneal fat. We then could feel the hernia at the base of the umbilicus, so we divided the umbilicus from the fascia with the cautery and found about an 8 mm umbilical hernia with incarcerated fat that we had to reduce along with some small amount of omentum. We could see the small bowel inside. It was free and mobile and then just below the umbilicus, she had a lot of scar from her two previous trocar sites, but there was a tiny 4 mm incarcerated trocar site incisional hernia containing some fat. That was amputated and passed off the field. The epigastric and trocar site hernias were repaired primarily with interrupted [id number] #1 Prolene suture. We used our 4.3 cm round Ventralex mesh and we placed that in the abdomen brought up flushed against the posterior abdominal wall through the umbilical fascial defect. We closed the umbilical fascial defect vertically with interrupted [id number] #1 Prolene sutures. Several passes of the suture went through the tab on the mesh to help hold it in place. We then cut the tab flushed with the abdominal wall and discarded the distal portion of the tab. Local anesthetic was injected in the abdominal wall along with the subcutaneous tissues. The wound was irrigated and suctioned out until clear. We brought the umbilical skin back down the midline with an interrupted 2-0 PDS suture. We brought the subcutaneous tissues together as they were somewhat scarred with interrupted 3-0 Monocryl sutures. This reduced the space. We brought the dermis back together with interrupted 3-0 subcuticular Monocryl sutures. The skin edges were reapproximated with a running 5-0 fast absorbing plain gut suture. Dry gauze and tape were then applied. Lea was then awakened from her anesthesia, extubated in the OR, and taken to recovery room in stable condition. She will be going home with five days of clindamycin as well for the cyst on her left proximal thigh. Electronically Signed By: NADIA DICKERSON MD 09/21/22 0656 PATIENT NAME: LEA GARCIA OPERATIVE REPORT DATE OF : 70 REPORT #: [id number] PHYSICIAN: NADIA DICKERSON MD PCP: OSBALDO PFEIFFER MD REPORT IS CONFIDENTIAL AND NOT TO BE RELEASED WITHOUT AUTHORIZATION [address] [address] Signed Nadia Dickerson MD ALB/MODL /[id number] cc: MD Nadia Watkins MD Copies: OSBALDO PFEIFFER MD, ANDREW L MD ~ Electronically Signed By: NADIA DICKERSON MD 09/21/22 0656 PATIENT NAME: LEA GARCIA OPERATIVE REPORT DATE OF : 70 REPORT #: [id number] PHYSICIAN: NADIA DICKERSON MD PCP: OSBALDO PFEIFFER MD REPORT IS CONFIDENTIAL AND NOT TO BE RELEASED WITHOUT AUTHORIZATION
== END 2022-09-20 15:12 | disposition home or self-care (01) ==
LOC: DS 08:30
PROVIDERS: ATTEND Colon & Rectal Surgery
DX: K43.6 Other and unspecified ventral hernia with obstruction, without gangrene (principal); K42.0 Umbilical hernia with obstruction, without gangrene; K43.0 Incisional hernia with obstruction, without gangrene; L72.9 Follicular cyst of the skin and subcutaneous tissue, unspecified; K57.90 Diverticulosis of intestine, part unspecified, without perforation or abscess without bleeding; E66.9 Obesity, unspecified; E11.9 Type 2 diabetes mellitus without complications; F17.200 Nicotine dependence, unspecified, uncomplicated; G47.33 Obstructive sleep apnea (adult) (pediatric); I10 Essential (primary) hypertension; Z88.1 Allergy status to other antibiotic agents; Z88.0 Allergy status to penicillin; Z88.8 Allergy status to other drugs, medicaments and biological substances; Z79.899 Other long term (current) drug therapy
CPT/HCPCS: 00832; A9270; C1781; J0131; J0171; J0330; J0461; J1100; J1160; J1644; J1885; J2250; J2405; J2704; J2765; J3010; J3490; J7121

== ENCOUNTER 2022-10-02 17:30 | Emergency (ER) | payer OTHER ==
[~2022-10-02] VITALS: Ht 162.6 cm; Wt 124.7 kg
[~2022-10-02 17:30] MED LIST changes: +ACETAMINOPHEN500 M1 PO; +CLEOCIN HCL300 MG PO; +OXYCODONE HCL10 MG PO; +VITAMIN D350 MC3 PO
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
[2022-10-02 22:06] VITALS: BP 104/89
== END 2022-10-02 22:07 | disposition home or self-care (01) ==
LOC: ED 17:30
DX: F41.9 Anxiety disorder, unspecified (principal); F17.200 Nicotine dependence, unspecified, uncomplicated; Z88.0 Allergy status to penicillin; Z88.5 Allergy status to narcotic agent; Z88.8 Allergy status to other drugs, medicaments and biological substances; Z79.899 Other long term (current) drug therapy
CPT/HCPCS: 99406

== ENCOUNTER 2023-01-04 17:47 | Emergency (ER) | payer OTHER ==
[~2023-01-04] VITALS: Ht 162.6 cm; Wt 119.8 kg
--- OUTSIDE RECORDS SUMMARY | ~2023-01-04 | XMS | Continuity of Care Document ---
Demographics + + + | Address | [address] [address] | | | [place] [address] | + + + | Preferred Language | Unknown | + + + | Marital Status | | + + + | Anglican Affiliation | Unknown | + + + | Race | White | + + + | Ethnic Group | Not or | + + + Author + + + | Author | [facility] | + + + | Organization | [facility] | + + + | Address | [address] | | | [place] [address] | + + + | Phone | | + + + Care Team Providers + + + + | Care Crystallography Teacher Name | Role | Phone | + [...] 2022-01-14 00:00 | LURASIDONE HCL | [facility] | + + + + | 2022-01-26 00:00 | LURASIDONE HCL | [facility] | + + + + | 2022-02-04 00:00 | LURASIDONE HCL | [facility] | + + + + | 2022-02-28 00:00 | LURASIDONE HCL | [facility] | + + + + | 2022-03-04 00:00 | LURASIDONE HCL | [facility] | + + + + | 2022-03-07 00:00 | LURASIDONE HCL | [facility] | + + + + | 2022-03-31 00:00 | LURASIDONE HCL | [facility] | + + + + | 2022-04-02 00:00 | LURASIDONE HCL | [facility] | + + + + | 2022-04-13 00:00 | LURASIDONE HCL | [facility] | + + + + | 2022-04-29 00:00 | LURASIDONE HCL | [facility] | + + + + | 2022-05-13 00:00 | LURASIDONE HCL | [facility] | + + + + 2022-05-13 00:00 | LURASIDONE HCL | [facility] | + + + + | 2022-06-04 00:00 | LURASIDONE HCL | [facility] | + + + + | 2022-06-06 00:00 | LURASIDONE HCL | [facility] | + + + + | 2022-06-28 00:00 | LURASIDONE HCL | [facility] | + + + + | 2022-07-25 00:00 | LURASIDONE HCL | [facility] | + + + + | 2022-07-31 00:00 | LURASIDONE HCL | [facility] | + + + + | 2022-08-01 00:00 | LURASIDONE HCL | [facility] | + + + + | 2022-08-19 00:00 | LURASIDONE HCL | [facility] | + + + + | 2022-09-01 00:00 | LURASIDONE HCL | [facility] | + + + + | 2022-09-15 00:00 | LURASIDONE HCL | [facility] | + + + + | 2022-09-16 00:00 | LURASIDONE HCL | [facility] | + + + + | 2022-09-20 00:00 | LURASIDONE HCL | [facility] | + + + + | 2022-10-02 00:00 | LURASIDONE HCL | [facility] | + + + + | 2022-11-09 00:00 | LURASIDONE HCL | [facility] | + + + + | 2022-11-13 00:00 | LURASIDONE HCL | [facility] | + + + + | 2022-11-22 00:00 | LURASIDONE HCL | [facility] | + + + + | 2022-11-24 00:00 | LURASIDONE HCL | [facility] | + + + + | 2022-03-31 00:00 | LORAZEPAM | [facility] | + + + + | 2022-03-31 00:00 | LORAZEPAM | [facility] | + + + + | 2022-11-22 00:00 | ONDANSETRON | [facility] | + + + + | 2022-11-22 00:00 | ONDANSETRON | [facility] | + + + + | 2022-03-04 00:00 | OXYCODONE | [facility] | | | HCL/ACETAMINOPHEN | | + + + + | 2022-03-07 00:00 | OXYCODONE | [facility] | | | HCL/ACETAMINOPHEN | | + + + + | 2022-03-31 00:00 | OXYCODONE | [facility] | | | HCL/ACETAMINOPHEN | | + + + + | 2022-04-02 00:00 | OXYCODONE | [facility] | | | HCL/ACETAMINOPHEN | | + + + + | 2022-04-13 00:00 | OXYCODONE | [facility] | | | HCL/ACETAMINOPHEN | | + + + + | 2022-04-29 00:00 | OXYCODONE | [facility] | | | HCL/ACETAMINOPHEN | | + + + + | 2022-05-13 00:00 | OXYCODONE | [facility] | | | HCL/ACETAMINOPHEN | | + + + + | 2022-05-13 00:00 | OXYCODONE | [facility] | | | HCL/ACETAMINOPHEN | | + + + + | 2022-06-04 00:00 | OXYCODONE | [facility] | | | HCL/ACETAMINOPHEN | | + + + + | 2022-06-06 00:00 | OXYCODONE | [facility] | | | HCL/ACETAMINOPHEN | | + + + + | 2022-06-28 00:00 | OXYCODONE | [facility] | | | HCL/ACETAMINOPHEN | | + + + + | 2022-07-25 00:00 | OXYCODONE | [facility] | | | HCL/ACETAMINOPHEN | | + + + + | 2022-07-31 00:00 | OXYCODONE | [facility] | | | HCL/ACETAMINOPHEN | | + + + + | 2022-08-01 00:00 | OXYCODONE | [facility] | | | HCL/ACETAMINOPHEN | | + + + + | 2022-08-19 00:00 | OXYCODONE | [facility] | | | HCL/ACETAMINOPHEN | | + + + + | 2022-09-01 00:00 | OXYCODONE | [facility] | | | HCL/ACETAMINOPHEN | | + + + + | 2022-09-15 00:00 | OXYCODONE | [facility] | | | HCL/ACETAMINOPHEN | | + + + + | 2022-09-16 00:00 | OXYCODONE | [facility] | | | HCL/ACETAMINOPHEN | | + + + + | 2022-09-20 00:00 | OXYCODONE | [facility] | | | HCL/ACETAMINOPHEN | | + + + + | 2022-10-02 00:00 | OXYCODONE | [facility] | | | HCL/ACETAMINOPHEN | | + + + + | 2022-11-09 00:00 | OXYCODONE | [facility] | | | HCL/ACETAMINOPHEN | | + + + + | 2020-07-10 00:00 | OXYCODONE HCL | [facility] | + + + + | 2020-07-10 00:00 | OXYCODONE HCL | [facility] | + + + + | 2020-07-10 00:00 | OXYCODONE HCL | [facility] | + + + + | 2020-07-10 00:00 | OXYCODONE HCL | [facility] | + + + + | 2020-07-10 00:00 | OXYCODONE HCL | [facility] | + + + + | 2020-07-10 00:00 | OXYCODONE HCL | [facility] | + + + + | 2020-07-10 00:00 | OXYCODONE HCL | [facility] | + + + + | 2020-07-10 00:00 | OXYCODONE HCL | [facility] | + + + + | 2020-07-10 00:00 | OXYCODONE HCL | [facility] | + + + + | 2022-11-13 00:00 | OXYCODONE | [facility] | | | HCL/ACETAMINOPHEN | | + + + + | 2022-11-13 00:00 | OXYCODONE | [facility] | | | HCL/ACETAMINOPHEN | | + + + + | 2022-11-13 00:00 | OXYCODONE | [facility] | | | HCL/ACETAMINOPHEN | | + + + + | 2022-09-20 00:00 | OXYCODONE HCL | [facility] | + + + + | 2022-10-02 00:00 | OXYCODONE HCL | [facility] | + + + + | 2022-11-09 00:00 | OXYCODONE HCL | [facility] | + + + + | 2022-11-13 00:00 | OXYCODONE HCL | [facility] | + + + + | 2022-11-22 00:00 | OXYCODONE HCL | [facility] | + + + + | 2022-11-24 00:00 | OXYCODONE HCL | [facility] | + + + + | 2022-04-02 00:00 | GABAPENTIN | [facility] | + + + + | 2022-04-02 00:00 | GABAPENTIN | [facility] | + + + + | 2022-04-02 00:00 | GABAPENTIN | [facility] | + + + + | 2022-01-14 00:00 | LAMOTRIGINE | [facility] | + + + + | 2022-01-26 00:00 | LAMOTRIGINE | [facility] | + + + + | 2022-02-04 00:00 | LAMOTRIGINE | [facility] | + + + + | 2022-02-28 00:00 | LAMOTRIGINE | [facility] | + + + + | 2022-03-04 00:00 | LAMOTRIGINE | [facility] | + + + + | 2022-03-07 00:00 | LAMOTRIGINE | [facility] | + + + + | 2022-03-31 00:00 | LAMOTRIGINE | [facility] | + + + + | 2022-04-02 00:00 | LAMOTRIGINE | [facility] | + + + + | 2022-04-13 00:00 | LAMOTRIGINE | [facility] | + + + + | 2022-04-29 00:00 | LAMOTRIGINE | [facility] | + + + + | 2022-05-13 00:00 | LAMOTRIGINE | [facility] | + + + + | 2022-05-13 00:00 | LAMOTRIGINE | [facility] | + + + + | 2022-06-04 00:00 | LAMOTRIGINE | [facility] | + + + + | 2022-06-06 00:00 | LAMOTRIGINE | [facility] | + + + + | 2022-06-28 00:00 | LAMOTRIGINE | [facility] | + + + + | 2022-07-25 00:00 | LAMOTRIGINE | [facility] | + + + + | 2022-07-31 00:00 | LAMOTRIGINE | [facility] | + + + + | 2022-08-01 00:00 | LAMOTRIGINE | [facility] | + + + + | 2022-08-19 00:00 | LAMOTRIGINE | [facility] | + + + + | 2022-09-01 00:00 | LAMOTRIGINE | [facility] | + + + + | 2022-09-15 00:00 | LAMOTRIGINE | [facility] | + + + + | 2022-09-16 00:00 | LAMOTRIGINE | [facility] | + + + + | 2022-09-20 00:00 | LAMOTRIGINE | [facility] | + + + + | 2022-10-02 00:00 | LAMOTRIGINE | [facility] | + + + + | 2022-11-09 00:00 | LAMOTRIGINE | [facility] | + + + + | 2022-11-13 00:00 | LAMOTRIGINE | [facility] | + + + + | 2022-11-22 00:00 | LAMOTRIGINE | [facility] | + + + + | 2022-11-24 00:00 | LAMOTRIGINE | [facility] | + + + + | 2022-05-13 00:00 | METHYLPHENIDATE HCL | [facility] | + + + + | 2022-05-13 00:00 | METHYLPHENIDATE HCL | [facility] | + + + + | 2022-06-04 00:00 | METHYLPHENIDATE HCL | [facility] | + + + + | 2022-06-06 00:00 | METHYLPHENIDATE HCL | [facility] | + + + + | 2022-06-28 00:00 | METHYLPHENIDATE HCL | [facility] | + + + + | 2022-07-25 00:00 | METHYLPHENIDATE HCL | [facility] | + + + + | 2022-07-31 00:00 | METHYLPHENIDATE HCL | [facility] | + + + + | 2022-08-01 00:00 | METHYLPHENIDATE HCL | [facility] | + + + + | 2022-08-19 00:00 | METHYLPHENIDATE HCL | [facility] | + + + + | 2022-09-01 00:00 | METHYLPHENIDATE HCL | [facility] | + + + + | 2022-09-15 00:00 | METHYLPHENIDATE HCL | [facility] | + + + + | 2022-09-16 00:00 | METHYLPHENIDATE HCL | [facility] | + + + + | 2022-09-20 00:00 | METHYLPHENIDATE HCL | [facility] | + + + + | 2022-10-02 00:00 | METHYLPHENIDATE HCL | [facility] | + + + + | 2022-11-09 00:00 | METHYLPHENIDATE HCL | [facility] | + + + + | 2022-11-13 00:00 | METHYLPHENIDATE HCL | [facility] | + + + + | 2022-11-22 00:00 | METHYLPHENIDATE HCL | [facility] | + + + + | 2022-11-24 00:00 | METHYLPHENIDATE HCL | [facility] | + + + + | 2022-01-14 00:00 | METHYLPHENIDATE HCL | [facility] | + + + + | 2022-01-26 00:00 | METHYLPHENIDATE HCL | [facility] | + + + + | 2022-02-04 00:00 | METHYLPHENIDATE HCL | [facility] | + + + + | 2022-02-28 00:00 | METHYLPHENIDATE HCL | [facility] | + + + + | 2022-03-04 00:00 | METHYLPHENIDATE HCL | [facility] | + + + + | 2022-03-07 00:00 | METHYLPHENIDATE HCL | [facility] | + + + + | 2022-03-31 00:00 | METHYLPHENIDATE HCL | [facility] | + + + + | 2022-04-02 00:00 | METHYLPHENIDATE HCL | [facility] | + + + + | 2022-04-13 00:00 | METHYLPHENIDATE HCL | [facility] | + + + + | 2022-04-29 00:00 | METHYLPHENIDATE HCL | [facility] | + + + + | 2022-05-13 00:00 | METHYLPHENIDATE HCL | [facility] | + + + + | 2022-05-13 00:00 | METHYLPHENIDATE HCL | [facility] | + + + + | 2022-06-04 00:00 | METHYLPHENIDATE HCL | [facility] | + + + + | 2022-06-06 00:00 | METHYLPHENIDATE HCL | [facility] | + + + + | 2022-06-28 00:00 | METHYLPHENIDATE HCL | [facility] | + + + + | 2022-07-25 00:00 | METHYLPHENIDATE HCL | [facility] | + + + + | 2022-07-31 00:00 | METHYLPHENIDATE HCL | [facility] | + + + + | 2022-08-01 00:00 | METHYLPHENIDATE HCL | [facility] | + + + + | 2022-08-19 00:00 | METHYLPHENIDATE HCL | [facility] | + + + + | 2022-09-01 00:00 | METHYLPHENIDATE HCL | [facility] | + + + + | 2022-09-15 00:00 | METHYLPHENIDATE HCL | [facility] | + + + + | 2022-09-16 00:00 | METHYLPHENIDATE HCL | [facility] | + + + + | 2022-09-20 00:00 | METHYLPHENIDATE HCL | [facility] | + + + + | 2022-10-02 00:00 | METHYLPHENIDATE HCL | [facility] | + + + + | 2022-11-09 00:00 | METHYLPHENIDATE HCL | [facility] | + + + + | 2022-11-13 00:00 | METHYLPHENIDATE HCL | [facility] | + + + + | 2022-11-22 00:00 | METHYLPHENIDATE HCL | [facility] | + + + + | 2022-11-24 00:00 | METHYLPHENIDATE HCL | [facility] | + + + + | 2022-03-07 00:00 | PHENAZOPYRIDINE HCL | [facility] | + + + + | 2022-03-07 00:00 | PHENAZOPYRIDINE HCL | [facility] | + + + + | 2022-03-07 00:00 | PHENAZOPYRIDINE HCL | [facility] | + + + + | 2022-03-07 00:00 | PHENAZOPYRIDINE HCL | [facility] | + + + + | 2022-03-07 00:00 | PHENAZOPYRIDINE HCL | [facility] | + + + + | 2022-03-07 00:00 | PHENAZOPYRIDINE HCL | [facility] | + + + + | 2022-03-07 00:00 | PHENAZOPYRIDINE HCL | [facility] | + + + + 2022-03-07 00:00 | PHENAZOPYRIDINE HCL | [facility] | + + + + | 2022-03-07 00:00 | PHENAZOPYRIDINE HCL | [facility] | + + + + | 2022-04-13 00:00 | clonAZEpam | [facility] | + + + + | 2022-04-29 00:00 | clonAZEpam | [facility] | + + + + | 2022-11-09 00:00 | | [facility] | | | SULFAMETHOXAZOLE/TRIMETHOPR | | | | IM | | + + + + | 2022-09-20 00:00 | ACETAMINOPHEN | [facility] | + + + + | 2022-10-02 00:00 | ACETAMINOPHEN | [facility] | + + + + | 2022-11-09 00:00 | ACETAMINOPHEN | [facility] | + + + + | 2022-11-13 00:00 | ACETAMINOPHEN | [facility] | + + + + | 2022-11-22 00:00 | ACETAMINOPHEN | [facility] | + + + + | 2022-11-24 00:00 | ACETAMINOPHEN | [facility] | + + + + | 2022-03-04 00:00 | CIPROFLOXACIN HCL | [facility] | + + + + | 2022-11-13 00:00 | CIPROFLOXACIN HCL | [facility] | + + + + | 2022-11-13 00:00 | CIPROFLOXACIN HCL | [facility] | + + + + | 2022-11-13 00:00 | CIPROFLOXACIN HCL | [facility] | + + + + | 2022-06-25 00:00 | METOCLOPRAMIDE HCL | [facility] | + + + + | 2022-07-25 00:00 | | [facility] | | | SULFAMETHOXAZOLE/TRIMETHOPR | | | | IM | | + + + + | 2022-07-25 00:00 | | [facility] | | | SULFAMETHOXAZOLE/TRIMETHOPR | | | | IM | | + + + + | 2022-07-25 00:00 | | [facility] | | | SULFAMETHOXAZOLE/TRIMETHOPR | | | | IM | | + + + + | 2022-07-25 00:00 | | [facility] | | | SULFAMETHOXAZOLE/TRIMETHOPR | | | | IM | | + + + + | 2022-07-25 00:00 | | [facility] | | | SULFAMETHOXAZOLE/TRIMETHOPR | | | | IM | | + + + + | 2022-07-25 00:00 | | [facility] | | | SULFAMETHOXAZOLE/TRIMETHOPR | | | | IM | | + + + + | 2022-06-25 00:00 | PANTOPRAZOLE SODIUM | [facility] | + + + + | 2022-01-14 00:00 | MIRTAZAPINE | [facility] | + + + + | 2022-01-26 00:00 | MIRTAZAPINE | [facility] | + + + + | 2022-02-04 00:00 | MIRTAZAPINE | [facility] | + + + + | 2022-02-28 00:00 | MIRTAZAPINE | [facility] | + + + + | 2022-03-04 00:00 | MIRTAZAPINE | [facility] | + + + + | 2022-03-07 00:00 | MIRTAZAPINE | [facility] | + + + + | 2022-03-31 00:00 | MIRTAZAPINE | [facility] | + + + + | 2022-04-02 00:00 | MIRTAZAPINE | [facility] | + + + + | 2022-04-13 00:00 | MIRTAZAPINE | [facility] | + + + + | 2022-04-29 00:00 | MIRTAZAPINE | [facility] | + + + + | 2022-05-13 00:00 | MIRTAZAPINE | [facility] | + + + + | 2022-05-13 00:00 | MIRTAZAPINE | [facility] | + + + + | 2022-06-04 00:00 | MIRTAZAPINE | [facility] | + + + + | 2022-06-06 00:00 | MIRTAZAPINE | [facility] | + + + + | 2022-06-28 00:00 | MIRTAZAPINE | [facility] | + + + + | 2022-07-25 00:00 | MIRTAZAPINE | [facility] | + + + + | 2022-07-31 00:00 | MIRTAZAPINE | [facility] | + + + + | 2022-08-01 00:00 | MIRTAZAPINE | [facility] | + + + + | 2022-08-19 00:00 | MIRTAZAPINE | [facility] | + + + + | 2022-09-01 00:00 | MIRTAZAPINE | [facility] | + + + + | 2022-09-15 00:00 | MIRTAZAPINE | [facility] | + + + + | 2022-09-16 00:00 | MIRTAZAPINE | [facility] | + + + + | 2022-09-20 00:00 | MIRTAZAPINE | [facility] | + + + + | 2022-10-02 00:00 | MIRTAZAPINE | [facility] | + + + + | 2022-11-09 00:00 | MIRTAZAPINE | [facility] | + + + + | 2022-11-13 00:00 | MIRTAZAPINE | [facility] | + + + + | 2022-11-22 00:00 | MIRTAZAPINE | [facility] | + + + + | 2022-11-24 00:00 | MIRTAZAPINE | [facility] | + + + + | 2020-07-13 00:00 | ONDANSETRON | [facility] | + + + + | 2020-07-13 00:00 | ONDANSETRON | [facility] | + + + + | 2020-07-13 00:00 | ONDANSETRON | [facility] | + + + + | 2020-07-13 00:00 | ONDANSETRON | [facility] | + + + + | 2020-07-13 00:00 | ONDANSETRON | [facility] | + + + + | 2020-07-13 00:00 | ONDANSETRON | [facility] | + + + + | 2020-07-13 00:00 | ONDANSETRON | [facility] | + + + + | 2020-07-13 00:00 | ONDANSETRON | [facility] | + + + + | 2020-07-13 00:00 | ONDANSETRON | [facility] | + + + + | 2022-04-02 00:00 | ONDANSETRON | [facility] | + + + + | 2022-04-02 00:00 | ONDANSETRON | [facility] | + + + + | 2022-04-02 00:00 | ONDANSETRON | [facility] | + + + + | 2022-04-02 00:00 | ONDANSETRON | [facility] | + + + + | 2022-04-02 00:00 | ONDANSETRON | [facility] | + + + + | 2022-04-02 00:00 | ONDANSETRON | [facility] | + + + + | 2022-04-02 00:00 | ONDANSETRON | [facility] | + + + + | 2022-04-02 00:00 | ONDANSETRON | [facility] | + + + + | 2022-04-02 00:00 | ONDANSETRON | [facility] | + + + + | 2022-11-13 00:00 | ONDANSETRON | [facility] | + + + + | 2022-11-13 00:00 | ONDANSETRON | [facility] | + + + + | 2022-11-13 00:00 | ONDANSETRON | [facility] | + + + + | 2020-07-06 00:00 | predniSONE | [facility] | + + + + | 2020-07-06 00:00 | predniSONE | [facility] | + + + + | 2020-07-06 00:00 | predniSONE | [facility] | + + + + | 2020-07-06 00:00 | predniSONE | [facility] | + + + + | 2020-07-06 00:00 | predniSONE | [facility] | + + + + | 2020-07-06 00:00 | predniSONE | [facility] | + + + + | 2020-07-06 00:00 | predniSONE | [facility] | + + + + | 2020-07-06 00:00 | predniSONE | [facility] | + + + + | 2020-07-06 00:00 | predniSONE | [facility] | + + + + | 2022-11-09 00:00 | AMOXICILLIN/POTASSIUM CLAV | [facility] | | | | | + + + + | 2022-01-14 00:00 | DULOXETINE HCL | [facility] | + + + + | 2022-01-26 00:00 | DULOXETINE HCL | [facility] | + + + + | 2022-02-04 00:00 | DULOXETINE HCL | [facility] | + + + + | 2022-02-28 00:00 | DULOXETINE HCL | [facility] | + + + + | 2022-03-04 00:00 | DULOXETINE HCL | [facility] | + + + + | 2022-03-07 00:00 | DULOXETINE HCL | [facility] | + + + + | 2022-03-31 00:00 | DULOXETINE HCL | [facility] | + + + + | 2022-04-02 00:00 | DULOXETINE HCL | [facility] | + + + + | 2022-04-13 00:00 | DULOXETINE HCL | [facility] | + + + + | 2022-04-29 00:00 | DULOXETINE HCL | [facility] | + + + + | 2022-05-13 00:00 | DULOXETINE HCL | [facility] | + + + + | 2022-05-13 00:00 | DULOXETINE HCL | [facility] | + + + + | 2022-06-04 00:00 | DULOXETINE HCL | [facility] | + + + + | 2022-06-06 00:00 | DULOXETINE HCL | [facility] | + + + + | 2022-06-28 00:00 | DULOXETINE HCL | [facility] | + + + + | 2022-07-25 00:00 | DULOXETINE HCL | [facility] | + + + + | 2022-07-31 00:00 | DULOXETINE HCL | [facility] | + + + + | 2022-08-01 00:00 | DULOXETINE HCL | [facility] | + + + + | 2022-08-19 00:00 | DULOXETINE HCL | [facility] | + + + + | 2022-09-01 00:00 | DULOXETINE HCL | [facility] | + + + + | 2022-09-15 00:00 | DULOXETINE HCL | [facility] | + + + + | 2022-09-16 00:00 | DULOXETINE HCL | [facility] | + + + + | 2022-09-20 00:00 | DULOXETINE HCL | [facility] | + + + + | 2022-10-02 00:00 | DULOXETINE HCL | [facility] | + + + + | 2022-11-09 00:00 | DULOXETINE HCL | [facility] | + + + + | 2022-11-13 00:00 | DULOXETINE HCL | [facility] | + + + + | 2022-11-22 00:00 | DULOXETINE HCL | [facility] | + + + + | 2022-11-24 00:00 | DULOXETINE HCL | [facility] | + + + + | 2022-05-13 00:00 | DULOXETINE HCL | [facility] | + + + + | 2022-05-13 00:00 | DULOXETINE HCL | [facility] | + + + + | 2022-06-04 00:00 | DULOXETINE HCL | [facility] | + + + + | 2022-06-06 00:00 | DULOXETINE HCL | [facility] | + + + + | 2022-06-28 00:00 | DULOXETINE HCL | [facility] | + + + + | 2022-07-25 00:00 | DULOXETINE HCL | [facility] | + + + + | 2022-07-31 00:00 | DULOXETINE HCL | [facility] | + + + + | 2022-08-01 00:00 | DULOXETINE HCL | [facility] | + + + + | 2022-09-20 00:00 | CLINDAMYCIN HCL | [facility] | + + + + | 2022-10-02 00:00 | CLINDAMYCIN HCL | [facility] | + + + + | 2022-11-09 00:00 | CLINDAMYCIN HCL | [facility] | + + + + | 2022-09-20 00:00 | Cholecalciferol (Vitamin | [facility] [facility] [place] | | | D3) | | + + + + | 2022-10-02 00:00 | Cholecalciferol (Vitamin | [facility] [place] | | | D3) | | + + + + | 2022-11-09 00:00 | Cholecalciferol (Vitamin | [facility] [place] | | | D3) | | + + + + | 2022-11-13 00:00 | Cholecalciferol (Vitamin | [facility] [place] | | | D3) | | + + + + | 2022-11-22 00:00 | Cholecalciferol (Vitamin | [facility] [place] | | | D3) | | + + + + | 2022-11-24 00:00 | Cholecalciferol (Vitamin | [facility] [place] | | | D3) | | + + + + | 2020-07-13 00:00 | AMOXICILLIN/POTASSIUM CLAV | [facility] [place] | | | | | + + + + | 2020-07-13 00:00 | AMOXICILLIN/POTASSIUM CLAV | [facility] [place] | | | | | + + + + | 2020-07-13 00:00 | AMOXICILLIN/POTASSIUM CLAV | [facility] [place] | | | | | + + + + | 2020-07-13 00:00 | AMOXICILLIN/POTASSIUM CLAV | [facility] [place] | | | | | + + + + | 2020-07-13 00:00 | AMOXICILLIN/POTASSIUM CLAV | [facility] [place] | | | | | + + + + | 2020-07-13 00:00 | AMOXICILLIN/POTASSIUM CLAV | [facility] [place] | | | | | + + + + | 2020-07-13 00:00 | AMOXICILLIN/POTASSIUM CLAV | [facility] [place] | | | | | + + + + | 2020-07-13 00:00 | AMOXICILLIN/POTASSIUM CLAV | [facility] [place] | | | | | + + + + | 2020-07-13 00:00 | AMOXICILLIN/POTASSIUM CLAV | [facility] [place] | | | | | + + + + | 2020-10-15 00:00 | CYCLOBENZAPRINE HCL | [facility] [place] | + + + + | 2020-10-15 00:00 | CYCLOBENZAPRINE HCL | [facility] [place] | + + + + | 2020-10-15 00:00 | CYCLOBENZAPRINE HCL | [facility] [place] | + + + + | 2020-10-15 00:00 | CYCLOBENZAPRINE HCL | [facility] [place] | + + + + | 2020-10-15 00:00 | CYCLOBENZAPRINE HCL | [facility] [place] | + + + + | 2020-10-15 00:00 | CYCLOBENZAPRINE HCL | [facility] [place] | + + + + | 2020-10-15 00:00 | CYCLOBENZAPRINE HCL | [facility] [place] | + + + + | 2020-10-15 00:00 | CYCLOBENZAPRINE HCL | [facility] [place] | + + + + | 2020-10-15 00:00 | CYCLOBENZAPRINE HCL | [facility] [place] | + + + + | 2020-07-13 00:00 | TRAMADOL HCL | [facility] [place] | + + + + | 2020-07-13 00:00 | TRAMADOL HCL | [facility] [place] | + + + + | 2020-07-13 00:00 | TRAMADOL HCL | [facility] [place] | + + + + | 2020-07-13 00:00 | TRAMADOL HCL | [facility] [place] | + + + + | 2020-07-13 00:00 | TRAMADOL HCL | [facility] [place] | + + + + | 2020-07-13 00:00 | TRAMADOL HCL | [facility] [place] | + + + + | 2020-07-13 00:00 | TRAMADOL HCL | [facility] [place] | + + + + | 2020-07-13 00:00 | TRAMADOL HCL | [facility] [place] | + + + + | 2020-07-13 00:00 | TRAMADOL HCL | [facility] [place] | + + + + | 2020-07-08 00:00 | | [facility] [place] | | | SULFAMETHOXAZOLE/TRIMETHOPR | | | | IM DS | | + + + + | 2020-07-08 00:00 | | [facility] [place] | | | SULFAMETHOXAZOLE/TRIMETHOPR | | | | IM DS | | + + + + | 2020-07-08 00:00 | | [facility] [place] | | | SULFAMETHOXAZOLE/TRIMETHOPR | | | | IM DS | | + + + + | 2020-07-08 00:00 | | [facility] [place] | | | SULFAMETHOXAZOLE/TRIMETHOPR | | | | IM DS | | + + + + | 2020-07-08 00:00 | | [facility] [place] | | | SULFAMETHOXAZOLE/TRIMETHOPR | | | | IM DS | | + + + + | 2020-07-08 00:00 | | [facility] [place] | | | SULFAMETHOXAZOLE/TRIMETHOPR | | | | IM DS | | + + + + | 2020-07-08 00:00 | | [facility] [place] | | | SULFAMETHOXAZOLE/TRIMETHOPR | | | | IM DS | | + + + + | 2020-07-08 00:00 | | [facility] [place] | | | SULFAMETHOXAZOLE/TRIMETHOPR | | | | IM DS | | + + + + | 2020-07-08 00:00 | | [facility] [place] | | | SULFAMETHOXAZOLE/TRIMETHOPR | | | | IM DS | | + + + + | 2022-03-07 00:00 | | [facility] [place] | | | SULFAMETHOXAZOLE/TRIMETHOPR | | | | IM DS | | + + + + | 2022-03-07 00:00 | | [facility] [place] | | | SULFAMETHOXAZOLE/TRIMETHOPR | | | | IM DS | | + + + + | 2022-03-07 00:00 | | [facility] [place] | | | SULFAMETHOXAZOLE/TRIMETHOPR | | | | IM DS | | + + + + | 2022-03-07 00:00 | | [facility] [place] | | | SULFAMETHOXAZOLE/TRIMETHOPR | | | | IM DS | | + + + + | 2022-03-07 00:00 | | [facility] [place] | | | SULFAMETHOXAZOLE/TRIMETHOPR | | | | IM DS | | + + + + | 2022-03-07 00:00 | | [facility] [place] | | | SULFAMETHOXAZOLE/TRIMETHOPR | | | | IM DS | | + + + + | 2022-03-07 00:00 | | [facility] [place] | | | SULFAMETHOXAZOLE/TRIMETHOPR | | | | IM DS | | + + + + | 2022-03-07 00:00 | | [facility] [place] | | | SULFAMETHOXAZOLE/TRIMETHOPR | | | | IM DS | | + + + + | 2022-03-07 00:00 | | [facility] [place] | | | SULFAMETHOXAZOLE/TRIMETHOPR | | | | IM DS | | + + + + | 2022-08-01 00:00 | | [facility] [place] | | | SULFAMETHOXAZOLE/TRIMETHOPR | | | | IM DS | | + + + + | 2022-08-01 00:00 | | [facility] [place] | | | SULFAMETHOXAZOLE/TRIMETHOPR | | | | IM DS | | + + + + | 2022-08-01 00:00 | | [facility] [place] | | | SULFAMETHOXAZOLE/TRIMETHOPR | | | | IM DS | | + + + + | 2022-08-01 00:00 | | [facility] [place] | | | SULFAMETHOXAZOLE/TRIMETHOPR | | | | IM DS | | + + + + | 2022-08-01 00:00 | | [facility] [place] | | | SULFAMETHOXAZOLE/TRIMETHOPR | | | | IM DS | | + + + + | 2022-03-04 00:00 | ZOLPIDEM TARTRATE | [facility] [place] | + + + + | 2022-03-07 00:00 | ZOLPIDEM TARTRATE | [facility] [place] | + + + + | 2022-03-31 00:00 | ZOLPIDEM TARTRATE | [facility] [place] | + + + + | 2022-04-02 00:00 | ZOLPIDEM TARTRATE | [facility] [place] | + + + + | 2022-04-13 00:00 | ZOLPIDEM TARTRATE | [facility] [place] | + + + + | 2022-04-29 00:00 | ZOLPIDEM TARTRATE | [facility] [place] | + + + + | 2022-05-13 00:00 | ZOLPIDEM TARTRATE | [facility] [place] | + + + + | 2022-05-13 00:00 | ZOLPIDEM TARTRATE | [facility] [place] | + + + + | 2022-06-04 00:00 | ZOLPIDEM TARTRATE | [facility] [place] | + + + + | 2022-06-06 00:00 | ZOLPIDEM TARTRATE | [facility] [place] | + + + + | 2022-06-28 00:00 | ZOLPIDEM TARTRATE | [facility] [place] | + + + + | 2022-07-25 00:00 | ZOLPIDEM TARTRATE | [facility] [place] | + + + + | 2022-07-31 00:00 | ZOLPIDEM TARTRATE | [facility] [place] | + + + + | 2022-08-01 00:00 | ZOLPIDEM TARTRATE | [facility] [place] | + + + + | 2022-08-19 00:00 | ZOLPIDEM TARTRATE | [facility] [place] | + + + + | 2022-09-01 00:00 | ZOLPIDEM TARTRATE | [facility] [place] | + + + + | 2022-09-15 00:00 | ZOLPIDEM TARTRATE | [facility] [place] | + + + + | 2022-09-16 00:00 | ZOLPIDEM TARTRATE | [facility] [place] | + + + + | 2022-09-20 00:00 | ZOLPIDEM TARTRATE | [facility] [place] | + + + + | 2022-10-02 00:00 | ZOLPIDEM TARTRATE | [facility] [place] | + + + + | 2022-11-09 00:00 | ZOLPIDEM TARTRATE | [facility] [place] | + + + + | 2022-11-13 00:00 | ZOLPIDEM TARTRATE | [facility] [place] | + + + + | 2022-11-22 00:00 | ZOLPIDEM TARTRATE | [facility] [place] | + + + + | 2022-11-24 00:00 | ZOLPIDEM TARTRATE | [facility] [place] | + + + + | 2022-03-04 00:00 | TRAZODONE HCL | [facility] [place] | + + + + | 2022-03-07 00:00 | TRAZODONE HCL | [facility] [place] | + + + + | 2022-03-31 00:00 | TRAZODONE HCL | [facility] [place] | + + + + | 2022-04-02 00:00 | TRAZODONE HCL | [facility] [place] | + + + + | 2022-04-13 00:00 | TRAZODONE HCL | [facility] [place] | + + + + | 2022-04-29 00:00 | TRAZODONE HCL | [facility] [place] | + + + + | 2022-05-13 00:00 | TRAZODONE HCL | [facility] [place] | + + + + | 2022-05-13 00:00 | TRAZODONE HCL | [facility] [place] | + + + + | 2022-06-04 00:00 | TRAZODONE HCL | [facility] [place] | + + + + | 2022-06-06 00:00 | TRAZODONE HCL | [facility] [place] | + + + + 2022-06-28 00:00 | TRAZODONE HCL | [facility] [place] | + + + + | 2022-07-25 00:00 | TRAZODONE HCL | [facility] [place] | + + + + | 2022-07-31 00:00 | TRAZODONE HCL | [facility] [place] | + + + + | 2022-08-01 00:00 | TRAZODONE HCL | [facility] [place] | + + + + | 2022-08-19 00:00 | TRAZODONE HCL | [facility] [place] | + + + + | 2022-09-01 00:00 | TRAZODONE HCL | [facility] [place] | + + + + | 2022-09-15 00:00 | TRAZODONE HCL | [facility] [place] | + + + + | 2022-09-16 00:00 | TRAZODONE HCL | [facility] [place] | + + + + | 2022-09-20 00:00 | TRAZODONE HCL | [facility] [place] | + + + + | 2022-10-02 00:00 | TRAZODONE HCL | [facility] [place] | + + + + | 2022-11-09 00:00 | TRAZODONE HCL | [facility] [place] | + + + + | 2022-11-13 00:00 | TRAZODONE HCL | [facility] [place] | + + + + | 2022-11-22 00:00 | TRAZODONE HCL | [facility] [place] | + + + + | 2022-11-24 00:00 | TRAZODONE HCL | [facility] [place] | + + + + | 2020-07-08 00:00 | HYDROCODONE | [facility] [place] | | | BIT/ACETAMINOPHEN | | + + + + | 2020-07-08 00:00 | HYDROCODONE | [facility] [place] | | | BIT/ACETAMINOPHEN | | + + + + | 2020-07-08 00:00 | HYDROCODONE | [facility] [place] | | | BIT/ACETAMINOPHEN | | + + + + | 2020-07-08 00:00 | HYDROCODONE | [facility] [place] | | | BIT/ACETAMINOPHEN | | + + + + | 2020-07-08 00:00 | HYDROCODONE | [facility] [place] | | | BIT/ACETAMINOPHEN | | + + + + | 2020-07-08 00:00 | HYDROCODONE | [facility] [place] | | | BIT/ACETAMINOPHEN | | + + + + | 2020-07-08 00:00 | HYDROCODONE | [facility] [place] | | | BIT/ACETAMINOPHEN | | + + + + | 2020-07-08 00:00 | HYDROCODONE | [facility] [place] | | | BIT/ACETAMINOPHEN | | + + + + | 2020-07-08 00:00 | HYDROCODONE | [facility] [place] | | | BIT/ACETAMINOPHEN | | + + + + | 2022-11-22 00:00 | HYDROCODONE | [facility] [place] | | | BIT/ACETAMINOPHEN | | + + + + | 2022-11-22 00:00 | HYDROCODONE | [facility] [place] | | | BIT/ACETAMINOPHEN | | + + + + | 2022-01-14 00:00 | ASENAPINE MALEATE | [facility] [place] | + + + + | 2022-01-26 00:00 | ASENAPINE MALEATE | [facility] [place] | + + + + | 2022-02-04 00:00 | ASENAPINE MALEATE | [facility] [place] | + + + + | 2022-02-28 00:00 | ASENAPINE MALEATE | [facility] [place] | + + + + | 2022-03-04 00:00 | ASENAPINE MALEATE | [facility] [place] | + + + + | 2022-03-07 00:00 | ASENAPINE MALEATE | [facility] [place] | + + + + | 2022-03-31 00:00 | ASENAPINE MALEATE | [facility] [place] | + + + + | 2022-04-02 00:00 | ASENAPINE MALEATE | [facility] [place] | + + + + | 2022-04-13 00:00 | ASENAPINE MALEATE | [facility] [place] | + + + + | 2022-04-29 00:00 | ASENAPINE MALEATE | [facility] [place] | + + + + | 2022-05-13 00:00 | ASENAPINE MALEATE | [facility] | + + + + | 2022-05-13 00:00 | ASENAPINE MALEATE | [facility] [place] | + + + + | 2022-06-04 00:00 | ASENAPINE MALEATE | [facility] [place] | + + + + | 2022-06-06 00:00 | ASENAPINE MALEATE | [facility] | + + + + | 2022-06-28 00:00 | ASENAPINE MALEATE | [facility] [place] | + + + + | 2022-07-25 00:00 | ASENAPINE MALEATE | [facility] [place] | + + + + | 2022-07-31 00:00 | ASENAPINE MALEATE | [facility] [place] | + + + + | 2022-08-01 00:00 | ASENAPINE MALEATE | [facility] | + + + + | 2022-08-19 00:00 | ASENAPINE MALEATE | [facility] | + + + + | 2022-09-01 00:00 | ASENAPINE MALEATE | [facility] | + + + + | 2022-09-15 00:00 | ASENAPINE MALEATE | [facility] | + + + + | 2022-09-16 00:00 | ASENAPINE MALEATE | [facility] | + + + + | 2022-09-20 00:00 | ASENAPINE MALEATE | [facility] | + + + + | 2022-10-02 00:00 | ASENAPINE MALEATE | [facility] | + + + + | 2022-11-09 00:00 | ASENAPINE MALEATE | [facility] [place] | + + + + | 2022-11-13 00:00 | ASENAPINE MALEATE | [facility] | + + + + | 2022-11-22 00:00 | ASENAPINE MALEATE | [facility] [place] | + + + + | 2022-11-24 00:00 | ASENAPINE MALEATE | [facility] [place] | + + + + | 2020-07-06 00:00 | MORPHINE SULFATE | [facility] [place] | + + + + | 2020-07-06 00:00 | MORPHINE SULFATE | [facility] [place] | + + + + | 2020-07-06 00:00 | MORPHINE SULFATE | [facility] [place] | + + + + | 2020-07-06 00:00 | MORPHINE SULFATE | [facility] [place] | + + + + | 2020-07-06 00:00 | MORPHINE SULFATE | [facility] [place] | + + + + | 2020-07-06 00:00 | MORPHINE SULFATE | [facility] | + + + + | 2020-07-06 00:00 | MORPHINE SULFATE | [facility] [place] | + + + + | 2020-07-06 00:00 | MORPHINE SULFATE | [facility] | + + + + | 2020-07-06 00:00 | MORPHINE SULFATE | [facility] | + + + + | 2022-05-13 00:00 | PROMETHAZINE HCL | [facility] [place] | + + + + | 2022-05-13 00:00 | PROMETHAZINE HCL | [facility] | + + + + | 2022-06-04 00:00 | PROMETHAZINE HCL | [facility] | + + + + | 2022-06-06 00:00 | PROMETHAZINE HCL | [facility] | + + + + | 2022-06-28 00:00 | PROMETHAZINE HCL | [facility] | + + + + | 2022-07-25 00:00 | PROMETHAZINE HCL | [facility] | + + + + | 2022-07-31 00:00 | PROMETHAZINE HCL | [facility] | + + + + | 2022-08-01 00:00 | PROMETHAZINE HCL | [facility] | + + + + | 2022-08-19 00:00 | PROMETHAZINE HCL | [facility] | + + + + | 2022-09-01 00:00 | PROMETHAZINE HCL | [facility] | + + + + | 2022-09-15 00:00 | PROMETHAZINE HCL | [facility] | + + + + | 2022-09-16 00:00 | PROMETHAZINE HCL | [facility] | + + + + | 2022-09-20 00:00 | PROMETHAZINE HCL | [facility] | + + + + | 2022-10-02 00:00 | PROMETHAZINE HCL | [facility] | + + + + | 2022-11-09 00:00 | PROMETHAZINE HCL | [facility] | + + + + | 2022-11-13 00:00 | PROMETHAZINE HCL | [facility] | + + + + | 2022-11-22 00:00 | PROMETHAZINE HCL | [facility] | + + + + | 2022-11-24 00:00 | PROMETHAZINE HCL | [facility] | + + + + Problems + + + + | date | description | facility | + + + + | 2020-07-06 00:00 | Sciatica associated with | [facility] [place] | | | disorder of lumbar spine | | + + + + | 2020-07-06 00:00 | Sciatica associated with | [facility] | | | disorder of lumbar spine | | + + + + | 2020-07-06 00:00 | Sciatica associated with | [facility] | | | disorder of lumbar spine | | + + + + | 2020-07-06 00:00 | Sciatica associated with | [facility] | | | disorder of lumbar spine | | + + + + | 2020-07-06 00:00 | Sciatica associated with | [facility] | | | disorder of lumbar spine | | + + + + | 2020-07-06 00:00 | Sciatica associated with | [facility] | | | disorder of lumbar spine | | + + + + | 2020-07-06 00:00 | Sciatica associated with | [facility] | | | disorder of lumbar spine | | + + + + | 2020-07-06 00:00 | Sciatica associated with | [facility] | | | disorder of lumbar spine | | + + + + | 2020-07-06 00:00 | Sciatica associated with | [facility] | | | disorder of lumbar spine | | + + + + | 2020-07-20 00:00 | Urinary tract infection | [facility] | + + + + | 2020-07-20 00:00 | Urinary tract infection | [facility] | + + + + | 2020-07-20 00:00 | Urinary tract infection | [facility] | + + + + | 2020-07-20 00:00 | Urinary tract infection | [facility] | + + + + | 2020-07-20 00:00 | Urinary tract infection | [facility] | + + + + | 2020-07-20 00:00 | Urinary tract infection | [facility] | + + + + | 2020-07-20 00:00 | Urinary tract infection | [facility] | + + + + | 2020-07-20 00:00 | Urinary tract infection | [facility] | + + + + | 2020-07-20 00:00 | Urinary tract infection | [facility] | + + + + | 2022-03-31 00:00 | Anxiety | [facility] | + + + + | 2022-03-31 00:00 | Anxiety | [facility] | + + + + | 2022-03-31 00:00 | Anxiety | [facility] | + + + + | 2022-03-31 00:00 | Anxiety | [facility] | + + + + | 2022-03-31 00:00 | Anxiety | [facility] | + + + + | 2022-03-31 00:00 | Anxiety | [facility] | + + + + | 2022-03-31 00:00 | Anxiety | [facility] | + + + + | 2022-03-31 00:00 | Anxiety | [facility] | + + + + | 2022-03-31 00:00 | Anxiety | [facility] | + + + + | 2022-03-31 00:00 | Grief | [facility] | + + + + | 2022-03-31 00:00 | Grief | [facility] | + + + + | 2022-03-31 00:00 | Grief | [facility] | + + + + | 2022-03-31 00:00 | Grief | [facility] | + + + + | 2022-03-31 00:00 | Grief | [facility] | + + + + | 2022-03-31 00:00 | Grief | [facility] | + + + + | 2022-03-31 00:00 | Grief | [facility] | + + + + | 2022-03-31 00:00 | Grief | [facility] | + + + + | 2022-03-31 00:00 | Grief | [facility] | + + + + | 2022-03-31 00:00 | Chest pain | [facility] | + + + + | 2022-03-31 00:00 | Chest pain | [facility] | + + + + | 2022-03-31 00:00 | Chest pain | [facility] | + + + + | 2022-03-31 00:00 | Chest pain | [facility] | + + + + | 2022-03-31 00:00 | Chest pain | [facility] | + + + + | 2022-03-31 00:00 | Chest pain | [facility] | + + + + | 2022-03-31 00:00 | Chest pain | [facility] | + + + + | 2022-03-31 00:00 | Chest pain | [facility] | + + + + | 2022-03-31 00:00 | Chest pain | [facility] | + + + + | 2022-04-02 00:00 | Chronic pain syndrome | [facility] | + + + + | 2022-04-02 00:00 | Chronic pain syndrome | [facility] | + + + + | 2022-04-02 00:00 | Chronic pain syndrome | [facility] | + + + + | 2022-04-02 00:00 | Chronic pain syndrome | [facility] | + + + + | 2022-04-02 00:00 | Chronic pain syndrome | [facility] | + + + + | 2022-04-02 00:00 | Chronic pain syndrome | [facility] | + + + + | 2022-04-02 00:00 | Chronic pain syndrome | [facility] | + + + + | 2022-04-02 00:00 | Chronic pain syndrome | [facility] | + + + + | 2022-04-02 00:00 | Chronic pain syndrome | [facility] | + + + + | 2022-04-02 00:00 | Atypical chest pain | [facility] | + + + + | 2022-04-02 00:00 | Atypical chest pain | [facility] | + + + + | 2022-04-02 00:00 | Atypical chest pain | [facility] | + + + + | 2022-04-02 00:00 | Atypical chest pain | [facility] | + + + + | 2022-04-02 00:00 | Atypical chest pain | [facility] | + + + + | 2022-04-02 00:00 | Atypical chest pain | [facility] | + + + + | 2022-04-02 00:00 | Atypical chest pain | [facility] | + + + + | 2022-04-02 00:00 | Atypical chest pain | [facility] | + + + + | 2022-04-02 00:00 | Atypical chest pain | [facility] | + + + + | 2022-04-29 00:00 | Left lower quadrant | [facility] | | | abdominal pain | | + + + + | 2022-04-29 00:00 | Left lower quadrant | [facility] | | | abdominal pain | | + + + + | 2022-04-29 00:00 | Left lower quadrant | [facility] | | | abdominal pain | | + + + + | 2022-04-29 00:00 | Left lower quadrant | [facility] | | | abdominal pain | | + + + + | 2022-04-29 00:00 | Left lower quadrant | [facility] | | | abdominal pain | | + + + + | 2022-04-29 00:00 | Left lower quadrant | [facility] | | | abdominal pain | | + + + + | 2022-04-29 00:00 | Left lower quadrant | [facility] | | | abdominal pain | | + + + + | 2022-04-29 00:00 | Left lower quadrant | [facility] | | | abdominal pain | | + + + + | 2022-04-29 00:00 | Nausea and vomiting | [facility] | + + + + | 2022-04-29 00:00 | Nausea and vomiting | [facility] | + + + + | 2022-04-29 00:00 | Nausea and vomiting | [facility] | + + + + | 2022-04-29 00:00 | Nausea and vomiting | [facility] | + + + + | 2022-04-29 00:00 | Nausea and vomiting | [facility] | + + + + | 2022-04-29 00:00 | Nausea and vomiting | [facility] | + + + + | 2022-04-29 00:00 | Nausea and vomiting | [facility] | + + + + | 2022-04-29 00:00 | Nausea and vomiting | [facility] | + + + + | 2022-04-29 00:00 | Lung nodule | [facility] | + + + + | 2022-04-29 00:00 | Lung nodule | [facility] | + + + + | 2022-04-29 00:00 | Lung nodule | [facility] | + + + + | 2022-04-29 00:00 | Lung nodule | [facility] | + + + + | 2022-04-29 00:00 | Lung nodule | [facility] | + + + + | 2022-04-29 00:00 | Lung nodule | [facility] | + + + + | 2022-04-29 00:00 | Lung nodule | [facility] | + + + + | 2022-04-29 00:00 | Lung nodule | [facility] | + + + + | 2022-05-12 00:00 | Upper respiratory tract | [facility] | | | infection | | + + + + | 2022-05-12 00:00 | Upper respiratory tract | [facility] | | | infection | | + + + + | 2022-05-12 00:00 | Upper respiratory tract | [facility] | | | infection | | + + + + | 2022-05-12 00:00 | Upper respiratory tract | [facility] | | | infection | | + + + + | 2022-05-12 00:00 | Upper respiratory tract | [facility] | | | infection | | + + + + | 2022-05-12 00:00 | Upper respiratory tract | [facility] | | | infection | | + + + + | 2022-05-12 00:00 | [facility] tract [facility] [facility] | | | infection | | + + + + | 2022-05-12 00:00 | Upper respiratory tract | [facility] | | | infection | | + + + + | 2022-06-04 00:00 | Neck sprain | [facility] | + + + + | 2022-06-04 00:00 | Neck sprain | [facility] | + + + + | 2022-06-04 00:00 | Neck sprain | [facility] | + + + + | 2022-06-04 00:00 | Neck sprain | [facility] | + + + + | 2022-06-04 00:00 | Neck sprain | [facility] | + + + + | 2022-06-04 00:00 | Neck sprain | [facility] | + + + + | 2022-06-04 00:00 | Neck sprain | [facility] | + + + + | 2022-06-04 [...] | 2022-06-06 00:00 | Concussion | [facility] | + + + + | 2022-06-06 00:00 | Concussion | [facility] | + + + + | 2022-06-06 00:00 | Concussion | [facility] | + + + + | 2022-06-06 00:00 | Concussion | [facility] | + + + + | 2022-06-06 00:00 | Concussion | [facility] | + + + + | 2022-06-06 00:00 | Concussion | [facility] | + + + + | 2022-06-06 00:00 | Concussion | [facility] | + + + + | 2022-06-06 00:00 | Injury of head | [facility] | + + + + | 2022-06-06 00:00 | Injury of head | [facility] | + + + + | 2022-06-06 00:00 | Injury of head | [facility] | + + + + | 2022-06-06 00:00 | Injury of head | [facility] | + + + + | 2022-06-06 00:00 | Injury of head | [facility] | + + + + | 2022-06-06 00:00 | Injury of head | [facility] | + + + + | 2022-06-06 00:00 | Injury of head | [facility] | + + + + | 2022-06-06 [...] + + | 2022-06-06 13:10 | OTHER INTERMEDIATE (CURRENT) | [facility] | | | DRUG [...] 2022-06-25 00:00 | Abdominal pain | [facility] | + + + + | 2022-06-25 00:00 | Abdominal pain | [facility] | + + + + | 2022-06-25 00:00 | Abdominal pain | [facility] | + + + + | 2022-06-25 00:00 | Abdominal pain | [facility] | + + + + | 2022-06-25 00:00 | Abdominal pain | [facility] | + + + + | 2022-06-25 00:00 | Abdominal pain | [facility] | + + + + | 2022-06-25 00:00 | Abdominal pain | [facility] | + + + + | 2022-06-25 [...] + + | 2022-06-25 12:18 | OTHER INTERMEDIATE (CURRENT) | [facility] | | | DRUG [...] + + | 2022-07-25 10:43 | OTHER INTERMEDIATE (CURRENT) | [facility] | | | DRUG [...] 00:00 | Patient left without being | [facility] | | | seen | | + + + + | 2022-07-31 00:00 | Patient left without being | [facility] | | | seen | | + + + + | 2022-07-31 00:00 | Patient left without being | [facility] | | | seen | | + + + + | 2022-07-31 00:00 | Patient left without being | [facility] | | | seen | | + + + + | 2022-07-31 00:00 | Patient left without being | [facility] | | | seen | | + + + + | 2022-07-31 00:00 | Patient left without being | [facility] | | | seen | [...] + + | 2022-08-01 08:08 | OTHER PRINT FINISHER (CURRENT) | [facility] | | | DRUG [...] + + | 2022-08-19 14:20 | OTHER PRINT FINISHER (CURRENT) | [facility] | | | DRUG [...] 00:00 | Chronic abdominal pain | [facility] | + + + + | 2022-09-01 00:00 | Chronic abdominal pain | [facility] | + + + + | 2022-09-01 00:00 | Chronic abdominal pain | [facility] | + + + + | 2022-09-01 00:00 | Chronic abdominal pain | [facility] | + + + + | 2022-09-01 00:00 | Chronic abdominal pain | [facility] | + + + + | 2022-09-01 00:00 | Headache | [facility] | + + + + | 2022-09-01 00:00 | Headache | [facility] | + + + + | 2022-09-01 00:00 | Headache | [facility] | + + + + | 2022-09-01 00:00 | Headache | [facility] | + + + + | 2022-09-01 00:00 | Headache | [facility] | + + + + | 2022-09-01 [...] + + | 2022-09-01 14:12 | OTHER PRINT FINISHER (CURRENT) | [facility] | | | DRUG [...] + + | 2022-09-15 08:51 | OTHER INTERMEDIATE (CURRENT) | [facility] | | | DRUG [...] + + | 2022-09-16 11:56 | OTHER INTERMEDIATE (CURRENT) | [facility] | | | DRUG [...] + + | 2022-09-20 08:30 | OTHER PRINT FINISHER (CURRENT) | [facility] | | | DRUG [...] + + | 2022-10-02 17:30 | OTHER PRINT FINISHER (CURRENT) | [facility] | | | DRUG [...] + + | 2022-11-13 13:19 | OTHER PRINT FINISHER (CURRENT) | [facility] | | | DRUG [...] | 2022-11-22 00:00 | Pyelonephritis | [facility] | + + + + | 2022-11-22 00:00 | Pyelonephritis | [facility] | + + + + | 2022-11-22 [...] + + | 2022-11-22 11:47 | OTHER PRINT FINISHER (CURRENT) | [facility] | | | DRUG [...] 2022-11-24 00:00 | Flank pain | [facility] | + + + + [...] chronic | | + + + + Procedures + + + + | date | description | facility | + + + + | 2022-09-20 00:00 | RPR AA HRN 1ST < 3 | [facility] | | | NCR/STRN | [...] (missing) | | (unavailable | 15:44 | [facility] | | | | | [...] 104 | + + + + + + + + + | | 2022-01-23 | [facility] | YELLOW | (missing) | (missing) | | (unavailable | 12:05 [facility] | | | | + + + + + + + + + | Result panel 105 | + + + + + +---------+ [...] 110 | + + + + + + [...] 112 | + + + + + +-------+ [...] 115 | + + + + + + [...] 117 | + + + + + +-------+ [...] 121 | + + + + + + + + + | | 2022-01-23 | [facility] | NONE SEEN | (missing) | (missing) | | (unavailable | 12:05 [facility] | | | | + + + + + + + + + | Result panel 122 | + + + + + +------+ [...] 137 | + + + + + + + + + | | 2022-01-23 | [facility] | YELLOW | (missing) | (missing) | | (unavailable | 12:05 [facility] | | | | + + + + + + + + + | Result panel 138 | + + + + + +---------+ [...] 143 | + + + + + + [...] 145 | + + + + + +-------+ [...] 148 | + + + + + + [...] 154 | + + + + + + + + + | | 2022-01-23 | [facility] | NONE SEEN | (missing) | (missing) | | (unavailable | 12:05 [facility] | | | | + + + + + + + + + | Result panel 155 | + + + + + +------+ [...] (missing) | | (unavailable | 12:00 | [facility] | | | | | [...] 229 | + + + + + +--------+ [...] 237 | + + + + + +-------+ [...] 243 | + + + + + +-------+---------+ + | | 2022-03-07 | [facility] | 135 | mg/dL | (missing) | | (unavailable | 14:19 [facility] | | | | + + + +-------+---------+ + + + | Result panel 244 | + + + + + +------+---------+ + | | 2022-03-07 | [facility] | 18 | mg/dL | (missing) | | (unavailable | 14:19 [facility] | | | | + + + +------+---------+ + + + | Result panel 245 | + + + + + +--------+---------+ + | | 2022-03-07 | [facility] | 1.17 | mg/dL | (missing) | | (unavailable | 14:19 [facility] | | | | + + + +--------+---------+ + + + | Result panel 246 | + + + + + +------+ + + | | 2022-03-07 | [facility] | 56 | (missing) | (missing) | | (unavailable | 14:19 [facility] | | | | + + + +------+ + + + + | Result panel 247 | + + + + + +---------+ + + | | 2022-03-07 | [facility] | 15.38 | (missing) | (missing) | | (unavailable | 14:19 [facility] | | | | + + + +---------+ + + + + | Result panel 248 | + + + + + +-------+ [...] 251 | + + + + + +------+ + + | | 2022-03-07 | [facility] | 26 | (missing) | (missing) | | (unavailable | 14:19 [facility] | | | | + + + +------+ + + + + | Result panel 252 | + + + + + +--------+ + + | | 2022-03-07 | [facility] | 14.6 | (missing) | (missing) | | (unavailable | 14:19 [facility] | | | | + + + +--------+ + + + + | Result panel 253 | + + + + + +--------+---------+ + | | 2022-03-07 | [facility] | 10.0 | mg/dL | (missing) | | (unavailable | 14:19 | [facility] | | | | + + + +--------+---------+ + + + | Result panel 254 [...] 259 | + + + + + +------+ [...] (missing) | | (unavailable | 16:06 | [facility] | | | | | [...] 396 | + + + + + +-------+ [...] 404 | + + + + + +--------+ + + | | 2022-04-02 | [facility] | 14.1 | (missing) | (missing) | | (unavailable | 17:36 [facility] | | | | + + + +--------+ + + + + | Result panel 405 | + + + + + +-------+ [...] 407 | + + + + + +--------+ [...] 410 | + + + + + +-------+ + + | | 2022-04-02 | [facility] | 1.9 | (missing) | (missing) | | (unavailable | 17:36 [facility] | | | | + + + +-------+ + + + + | Result panel 411 | + + + + + +-------+---------+ + | | 2022-04-02 | [facility] | 154 | mg/dL | (missing) | | (unavailable | 17:36 [facility] | | | | + + + +-------+---------+ + + + | Result panel 412 | + + + + + +------+---------+ + | | 2022-04-02 | [facility] | 17 | mg/dL | (missing) | | (unavailable | 17:36 [facility] | | | | + + + +------+---------+ + + + | Result panel 413 | + + + + + +--------+---------+ + | | 2022-04-02 | [facility] | 1.09 | mg/dL | (missing) | | (unavailable | 17:36 [facility] | | | | + + + +--------+---------+ + + + | Result panel 414 | + + + + + +------+ + + | | 2022-04-02 | [facility] | 61 | (missing) | (missing) | | (unavailable | 17:36 [facility] | | | | + + + +------+ + + + + | Result panel 415 | + + + + + +---------+ [...] 418 | + + + + + +-------+ + + | | 2022-04-02 | [facility] | 100 | (missing) | (missing) | | (unavailable | 17:36 [facility] | | | | + + + +-------+ + + + + | Result panel 419 | + + + + + +------+ + + | | 2022-04-02 | [facility] | 28 | (missing) | (missing) | | (unavailable | 17:36 [facility] | | | | + + + +------+ + + + + | Result panel 420 | + + + + + +--------+ + + | | 2022-04-02 | [facility] | 14.9 | (missing) | (missing) | | (unavailable | 17:36 [facility] | | | | + + + +--------+ + + + + | Result panel 421 | + + + + + +-------+---------+ + | | 2022-04-02 | [facility] | 9.9 | mg/dL | (missing) | | (unavailable | 17:36 [facility] | | | | + + + +-------+---------+ + + + | Result panel 422 [...] 424 | + + + + + +-------+ + + | | 2022-04-02 | [facility] | 4.5 | (missing) | (missing) | | (unavailable | 17:36 [facility] | | | | + + + +-------+ + + + + | Result panel 425 | + + + + + +--------+ + + | | 2022-04-02 | [facility] | 0.82 | (missing) | (missing) | | (unavailable | 17:36 [facility] | | | | + + + +--------+ + + + + | Result panel 426 | + + + + + +-------+ [...] 428 | + + + + + +------+ [...] (missing) | | (unavailable | 14:14 | [facility] | | | | | [...] (missing) | | (unavailable | 15:30:07 | [facility] | | | | | [...] (missing) | | (unavailable | 15:30:07 | [facility] | | | | | [...] mg/dL | (missing) | | (unavailable | :29: | [facility] | | | | | [...] | (unavailable | 14:50:07 | [facility] | | | | ) | | [...] (missing) | | (unavailable | 14:00:07 | [facility] | | | | | [...] 1280 | + + + + + +-------+ + + | | 2022-11-13 | [facility] | 0-1 | (missing) | (missing) | | (unavailable | 16:30:07 | [facility] | | | | + + + +-------+ + + + + | Result panel 1281 | + + + + + +--------+ + + | | 2022-11-13 | [facility] | 7-11 | (missing) | (missing) | | (unavailable | 16:30:07 | [facility] | | | | + + + +--------+ + + + + | Result panel 1282 | + + + + + + [...] 1285 | + + + + + + + + + | | 2022-11-13 | [facility] | NEGATIVE | (missing) | (missing) | | (unavailable | 16:30:07 | [facility] | | | | + + + + + + + + + | Result panel 1286 | + + + + + + + + + | | 2022-11-13 | [facility] | NEGATIVE | (missing) | (missing) | | (unavailable | 16:30:07 | [facility] | | | | + + + + + + + + + | Result panel 1287 | + + + + + +-----+ + + | | 2022-11-13 | [facility] | 0 | (missing) | (missing) | | (unavailable | 16:30:07 | [facility] | | | | + + + +-----+ + + + + | Result panel 1288 | + + + + + +---------+ [...] 1290 | + + + + + +-------+ + + | | 2022-11-13 | [facility] | 7.5 | (missing) | (missing) | | (unavailable | 16:30:07 | [facility] | | | | + + + +-------+ + + + + | Result panel 1291 | + + + + + +---------+ [...] 1293 | + + + + + + + + + | | 2022-11-13 | [facility] | POSITIVE | (missing) | (missing) | | (unavailable | 16:30:07 | [facility] | | | | + + + + + + + + + | Result panel 1294 | + + + + + +---------+ + + | | 2022-11-13 | [facility] | SMALL | (missing) | (missing) | | (unavailable | 16:30:07 | [facility] | | | | + + + +---------+ + + + + | Result panel 1295 | + + + + + +-------+ + + | | 2022-11-13 | [facility] | 0-1 | (missing) | (missing) | | (unavailable | 16:30:07 [facility] | | | | + + + +-------+ + + + + | Result panel 1296 | + + + + + +--------+ + + | | 2022-11-13 | [facility] | 7-11 | (missing) | (missing) | | (unavailable | 16:30:07 [facility] | | | | + + + +--------+ + + + + | Result panel 1297 | + + + + + +-----+ [...] 1301 | + + + + + +------+ [...] 1303 | + + + + + +-------+ [...] 1305 | + + + + + + + + + | | 2022-11-13 | [facility] | TRIPLE | (missing) | (missing) | | (unavailable | 16:30:07 | [facility] PHOSPHATE 1+ | | | | ) | [facility] | | | | + + + + + + + + + | Result panel 1306 | + + + + + +------+ [...] 1309 | + + + + + +-------+ + + | | 2022-11-13 | [facility] | Yes | (missing) | (missing) | | (unavailable | 16:30:07 | [facility] | | | | + + + +-------+ + + + + | Result panel 1310 | + + + + + + + + + | | 2022-11-13 | [facility] | CLEAN CATCH | (missing) | (missing) | | (unavailable | 16:30:07 | [facility] | | | | + + + + + + + + + | Result panel 1311 | + + + + + + + + + | | 2022-11-13 | [facility] | ESCHERICHIA | (missing) | (missing) | | (unavailable | 16:30:07 | [facility]I [facility] | [facility] | | | | + + + + + + + + + | Result panel 1312 | + + + + + + [...] 1315 | + + + + + +---------+ [...] 1318 | + + + + + +---------+ [...] mg/dL | (missing) | | (unavailable | 12 | [facility] | | | | | [...] 1352 | + + + + + +-------+ + + | | 2022-11-23 | [facility] | 7.8 | (missing) | (missing) | | (unavailable | 19:34:07 | [facility] | | | | + + + +-------+ + + + + | Result panel 1353 | + + + + + +-------+ + + | | 2022-11-23 | [facility] | 3.8 | (missing) | (missing) | | (unavailable | 19:34:07 | [facility] | | | | + + + +-------+ + + + + | Result panel 1354 | + + + + + +-------+ [...] 1356 | + + + + + +-------+ + + | | 2022-11-23 | [facility] | 0.4 | (missing) | (missing) | | (unavailable | 19:34:07 [facility] | | | | + + + +-------+ + + + + | Result panel 1357 | + + + + + +------+ + + | | 2022-11-23 | [facility] | 43 | (missing) | (missing) | | (unavailable | 19:34:07 | [facility] | | | | + + + +------+ + + + + | Result panel 1358 | + + + + + +------+ + + | | 2022-11-23 | [facility] | 48 | (missing) | (missing) | | (unavailable | 19:34:07 | [facility] | | | | + + + +------+ + + + + | Result panel 1359 | + + + + + +-------+ [...] 1363 | + + + + + +--------+ + + | | 2022-11-23 | [facility] | 15.3 | (missing) | (missing) | | (unavailable | 19:34:07 [facility] | | | | + + + +--------+ + + + + | Result panel 1364 | + + + + + +--------+ + + | | 2022-11-23 | [facility] | 46.1 | (missing) | (missing) | | (unavailable | 19:34:07 [facility] | | | | + + + +--------+ + + + + | Result panel 1365 | + + + + + +--------+ + + | | 2022-11-23 | [facility] | 92.0 | (missing) | (missing) | | (unavailable | 19:34:07 | [facility] | | | | + + + +--------+ + + + + | Result panel 1366 | + + + + + +--------+ + + | | 2022-11-23 | [facility] | 30.6 | (missing) | (missing) | | (unavailable | 19:34:07 [facility] | | | | + + + +--------+ + + + + | Result panel 1367 | + + + + + +--------+ + + | | 2022-11-23 | [facility] | 33.3 | (missing) | (missing) | | (unavailable | 19:34:07 [facility] | | | | + + + +--------+ + + + + | Result panel 1368 | + + + + + +--------+ + + | | 2022-11-23 | [facility] | 14.2 | (missing) | (missing) | | (unavailable | 19:34:07 [facility] | | | | + + + +--------+ + + + + | Result panel 1369 | + + + + + +-------+ + + | | 2022-11-23 | [facility] | 359 | (missing) | (missing) | | (unavailable | 19:34:07 [facility] | | | | + + + +-------+ + + + + | Result panel 1370 | + + + + + +--------+ + + | | 2022-11-23 | [facility] | 71.5 | (missing) | (missing) | | (unavailable | 19:34:07 [facility] | | | | + + + +--------+ + + + + | Result panel 1371 | + + + + + +--------+ [...] 1374 | + + + + + +-------+ + + | | 2022-11-23 | [facility] | 0.3 | (missing) | (missing) | | (unavailable | 19:34:07 [facility] | | | | + + + +-------+ + + + + | Result panel 1375 | + + + + + +-------+---------+ + | | 2022-11-23 | [facility] | 135 | mg/dL | (missing) | | (unavailable | 19:34:07 [facility] | | | | + + + +-------+---------+ + + + | Result panel 1376 | + + + + + +------+---------+ + | | 2022-11-23 | [facility] | 18 | mg/dL | (missing) | | (unavailable | 19:34:07 [facility] | | | | + + + +------+---------+ + + + | Result panel 1377 | + + + + + +--------+---------+ + | | 2022-11-23 | [facility] | 1.20 | mg/dL | (missing) | | (unavailable | 19:34:07 [facility] | | | | + + + +--------+---------+ + + + | Result panel 1378 | + + + + + +------+ + + | | 2022-11-23 | [facility] | 54 | (missing) | (missing) | | (unavailable | 19:34:07 [facility] | | | | + + + +------+ + + + + | Result panel 1379 | + + + + + +---------+ + + | | 2022-11-23 | [facility] | 15.00 | (missing) | (missing) | | (unavailable | 19:34:07 [facility] | | | | + + + +---------+ + + + + | Result panel 1380 | + + + + + +-------+ [...] 1382 | + + + + + +-------+ [...] 1384 | + + + + + +--------+ + + | | 2022-11-23 | [facility] | 15.0 | (missing) | (missing) | | (unavailable | 19:34:07 [facility] | | | | + + + +--------+ + + + + | Result panel 1385 | + + + + + +-------+---------+ + | | 2022-11-23 | [facility] | 9.6 | mg/dL | (missing) | | (unavailable | 19:34:07 | [facility] | | | | + + + +-------+---------+ + + + | Result panel 1386 [...] + + +-------+ + + Social History No information. Vital [...]
--- OUTSIDE RECORDS SUMMARY | ~2023-01-04 | XMS | Continuity of Care Document ---
Demographics + + + | Address | [address] [address] | | | [place] [address] | + + + | Preferred Language | Unknown | + + + | Marital Status | | + + + | [employer] Affiliation | Unknown | + + + | Race | White | + + + | Ethnic Group | Not or | + + + Author + + + | Author | [place] | + + + | Organization | [place] | + + + | Address | [address] | | | [place] [address] | + + + | Phone | | + + + Care Team Providers + + + + | Care Weave Defect Charting Clerk Name | Role | Phone | + [...] | 2022-01-14 00:00 | LURASIDONE HCL | [facility] | + + + + | 2022-01-26 00:00 | LURASIDONE HCL | [facility] | + + + + | 2022-02-04 00:00 | LURASIDONE HCL | [facility] | + + + + | 2022-02-28 00:00 | LURASIDONE HCL | [facility] | + + + + | 2022-03-04 00:00 | LURASIDONE HCL | [facility] | + + + + | 2022-03-07 00:00 | LURASIDONE HCL | [facility] | + + + + | 2022-03-31 00:00 | LURASIDONE HCL | [facility] | + + + + | 2022-04-02 00:00 | LURASIDONE HCL | [facility] | + + + + | 2022-04-13 00:00 | LURASIDONE HCL | [facility] | + + + + | 2022-04-29 00:00 | LURASIDONE HCL | [facility] | + + + + | 2022-05-13 00:00 | LURASIDONE HCL | [facility] | + + + + 2022-05-13 00:00 | LURASIDONE HCL | [facility] | + + + + | 2022-06-04 00:00 | LURASIDONE HCL | [facility] | + + + + | 2022-06-06 00:00 | LURASIDONE HCL | [facility] | + + + + | 2022-06-28 00:00 | LURASIDONE HCL | [facility] | + + + + | 2022-07-25 00:00 | LURASIDONE HCL | [facility] | + + + + | 2022-07-31 00:00 | LURASIDONE HCL | [facility] | + + + + | 2022-08-01 00:00 | LURASIDONE HCL | [facility] | + + + + | 2022-08-19 00:00 | LURASIDONE HCL | [facility] | + + + + | 2022-09-01 00:00 | LURASIDONE HCL | [facility] | + + + + | 2022-09-15 00:00 | LURASIDONE HCL | [facility] | + + + + | 2022-09-16 00:00 | LURASIDONE HCL | [facility] | + + + + | 2022-09-20 00:00 | LURASIDONE HCL | [facility] | + + + + | 2022-10-02 00:00 | LURASIDONE HCL | [facility] | + + + + | 2022-11-09 00:00 | LURASIDONE HCL | [facility] | + + + + | 2022-11-13 00:00 | LURASIDONE HCL | [facility] | + + + + | 2022-11-22 00:00 | LURASIDONE HCL | [facility] | + + + + | 2022-11-24 00:00 | LURASIDONE HCL | [facility] | + + + + | 2022-03-31 00:00 | LORAZEPAM | [facility] | + + + + | 2022-03-31 00:00 | LORAZEPAM | [facility] | + + + + | 2022-11-22 00:00 | ONDANSETRON | [facility] | + + + + | 2022-11-22 00:00 | ONDANSETRON | [facility] | + + + + | 2022-03-04 00:00 | OXYCODONE | [facility] | | | HCL/ACETAMINOPHEN | | + + + + | 2022-03-07 00:00 | OXYCODONE | [facility] | | | HCL/ACETAMINOPHEN | | + + + + | 2022-03-31 00:00 | OXYCODONE | [facility] | | | HCL/ACETAMINOPHEN | | + + + + | 2022-04-02 00:00 | OXYCODONE | [facility] | | | HCL/ACETAMINOPHEN | | + + + + | 2022-04-13 00:00 | OXYCODONE | [facility] | | | HCL/ACETAMINOPHEN | | + + + + | 2022-04-29 00:00 | OXYCODONE | [facility] | | | HCL/ACETAMINOPHEN | | + + + + | 2022-05-13 00:00 | OXYCODONE | [facility] | | | HCL/ACETAMINOPHEN | | + + + + | 2022-05-13 00:00 | OXYCODONE | [facility] | | | HCL/ACETAMINOPHEN | | + + + + | 2022-06-04 00:00 | OXYCODONE | [facility] | | | HCL/ACETAMINOPHEN | | + + + + | 2022-06-06 00:00 | OXYCODONE | [facility] | | | HCL/ACETAMINOPHEN | | + + + + | 2022-06-28 00:00 | OXYCODONE | [facility] | | | HCL/ACETAMINOPHEN | | + + + + | 2022-07-25 00:00 | OXYCODONE | [facility] | | | HCL/ACETAMINOPHEN | | + + + + | 2022-07-31 00:00 | OXYCODONE | [facility] | | | HCL/ACETAMINOPHEN | | + + + + | 2022-08-01 00:00 | OXYCODONE | [facility] | | | HCL/ACETAMINOPHEN | | + + + + | 2022-08-19 00:00 | OXYCODONE | [facility] | | | HCL/ACETAMINOPHEN | | + + + + | 2022-09-01 00:00 | OXYCODONE | [facility] | | | HCL/ACETAMINOPHEN | | + + + + | 2022-09-15 00:00 | OXYCODONE | [facility] | | | HCL/ACETAMINOPHEN | | + + + + | 2022-09-16 00:00 | OXYCODONE | [facility] | | | HCL/ACETAMINOPHEN | | + + + + | 2022-09-20 00:00 | OXYCODONE | [facility] | | | HCL/ACETAMINOPHEN | | + + + + | 2022-10-02 00:00 | OXYCODONE | [facility] | | | HCL/ACETAMINOPHEN | | + + + + | 2022-11-09 00:00 | OXYCODONE | [facility] | | | HCL/ACETAMINOPHEN | | + + + + | 2020-07-10 00:00 | OXYCODONE HCL | [facility] | + + + + | 2020-07-10 00:00 | OXYCODONE HCL | [facility] | + + + + | 2020-07-10 00:00 | OXYCODONE HCL | [facility] | + + + + | 2020-07-10 00:00 | OXYCODONE HCL | [facility] | + + + + | 2020-07-10 00:00 | OXYCODONE HCL | [facility] | + + + + | 2020-07-10 00:00 | OXYCODONE HCL | [facility] | + + + + | 2020-07-10 00:00 | OXYCODONE HCL | [facility] | + + + + | 2020-07-10 00:00 | OXYCODONE HCL | [facility] | + + + + | 2020-07-10 00:00 | OXYCODONE HCL | [facility] | + + + + | 2022-11-13 00:00 | OXYCODONE | [facility] | | | HCL/ACETAMINOPHEN | | + + + + | 2022-11-13 00:00 | OXYCODONE | [facility] | | | HCL/ACETAMINOPHEN | | + + + + | 2022-11-13 00:00 | OXYCODONE | [facility] | | | HCL/ACETAMINOPHEN | | + + + + | 2022-09-20 00:00 | OXYCODONE HCL | [facility] | + + + + | 2022-10-02 00:00 | OXYCODONE HCL | [facility] | + + + + | 2022-11-09 00:00 | OXYCODONE HCL | [facility] | + + + + | 2022-11-13 00:00 | OXYCODONE HCL | [facility] | + + + + | 2022-11-22 00:00 | OXYCODONE HCL | [facility] | + + + + | 2022-11-24 00:00 | OXYCODONE HCL | [facility] | + + + + | 2022-04-02 00:00 | GABAPENTIN | [facility] | + + + + | 2022-04-02 00:00 | GABAPENTIN | [facility] | + + + + | 2022-04-02 00:00 | GABAPENTIN | [facility] | + + + + | 2022-01-14 00:00 | LAMOTRIGINE | [facility] | + + + + | 2022-01-26 00:00 | LAMOTRIGINE | [facility] | + + + + | 2022-02-04 00:00 | LAMOTRIGINE | [facility] | + + + + | 2022-02-28 00:00 | LAMOTRIGINE | [facility] | + + + + | 2022-03-04 00:00 | LAMOTRIGINE | [facility] | + + + + | 2022-03-07 00:00 | LAMOTRIGINE | [facility] | + + + + | 2022-03-31 00:00 | LAMOTRIGINE | [facility] | + + + + | 2022-04-02 00:00 | LAMOTRIGINE | [facility] | + + + + | 2022-04-13 00:00 | LAMOTRIGINE | [facility] | + + + + | 2022-04-29 00:00 | LAMOTRIGINE | [facility] | + + + + | 2022-05-13 00:00 | LAMOTRIGINE | [facility] | + + + + | 2022-05-13 00:00 | LAMOTRIGINE | [facility] | + + + + | 2022-06-04 00:00 | LAMOTRIGINE | [facility] | + + + + | 2022-06-06 00:00 | LAMOTRIGINE | [facility] | + + + + | 2022-06-28 00:00 | LAMOTRIGINE | [facility] | + + + + | 2022-07-25 00:00 | LAMOTRIGINE | [facility] | + + + + | 2022-07-31 00:00 | LAMOTRIGINE | [facility] | + + + + | 2022-08-01 00:00 | LAMOTRIGINE | [facility] | + + + + | 2022-08-19 00:00 | LAMOTRIGINE | [facility] | + + + + | 2022-09-01 00:00 | LAMOTRIGINE | [facility] | + + + + | 2022-09-15 00:00 | LAMOTRIGINE | [facility] | + + + + | 2022-09-16 00:00 | LAMOTRIGINE | [facility] | + + + + | 2022-09-20 00:00 | LAMOTRIGINE | [facility] | + + + + | 2022-10-02 00:00 | LAMOTRIGINE | [facility] | + + + + | 2022-11-09 00:00 | LAMOTRIGINE | [facility] | + + + + | 2022-11-13 00:00 | LAMOTRIGINE | [facility] | + + + + | 2022-11-22 00:00 | LAMOTRIGINE | [facility] | + + + + | 2022-11-24 00:00 | LAMOTRIGINE | [facility] | + + + + | 2022-05-13 00:00 | METHYLPHENIDATE HCL | [facility] | + + + + | 2022-05-13 00:00 | METHYLPHENIDATE HCL | [facility] | + + + + | 2022-06-04 00:00 | METHYLPHENIDATE HCL | [facility] | + + + + | 2022-06-06 00:00 | METHYLPHENIDATE HCL | [facility] | + + + + | 2022-06-28 00:00 | METHYLPHENIDATE HCL | [facility] | + + + + | 2022-07-25 00:00 | METHYLPHENIDATE HCL | [facility] | + + + + | 2022-07-31 00:00 | METHYLPHENIDATE HCL | [facility] | + + + + | 2022-08-01 00:00 | METHYLPHENIDATE HCL | [facility] | + + + + | 2022-08-19 00:00 | METHYLPHENIDATE HCL | [facility] | + + + + | 2022-09-01 00:00 | METHYLPHENIDATE HCL | [facility] | + + + + | 2022-09-15 00:00 | METHYLPHENIDATE HCL | [facility] | + + + + | 2022-09-16 00:00 | METHYLPHENIDATE HCL | [facility] | + + + + | 2022-09-20 00:00 | METHYLPHENIDATE HCL | [facility] | + + + + | 2022-10-02 00:00 | METHYLPHENIDATE HCL | [facility] | + + + + | 2022-11-09 00:00 | METHYLPHENIDATE HCL | [facility] | + + + + | 2022-11-13 00:00 | METHYLPHENIDATE HCL | [facility] | + + + + | 2022-11-22 00:00 | METHYLPHENIDATE HCL | [facility] | + + + + | 2022-11-24 00:00 | METHYLPHENIDATE HCL | [facility] | + + + + | 2022-01-14 00:00 | METHYLPHENIDATE HCL | [facility] | + + + + | 2022-01-26 00:00 | METHYLPHENIDATE HCL | [facility] | + + + + | 2022-02-04 00:00 | METHYLPHENIDATE HCL | [facility] | + + + + | 2022-02-28 00:00 | METHYLPHENIDATE HCL | [facility] | + + + + | 2022-03-04 00:00 | METHYLPHENIDATE HCL | [facility] | + + + + | 2022-03-07 00:00 | METHYLPHENIDATE HCL | [facility] | + + + + | 2022-03-31 00:00 | METHYLPHENIDATE HCL | [facility] | + + + + | 2022-04-02 00:00 | METHYLPHENIDATE HCL | [facility] | + + + + | 2022-04-13 00:00 | METHYLPHENIDATE HCL | [facility] | + + + + | 2022-04-29 00:00 | METHYLPHENIDATE HCL | [facility] | + + + + | 2022-05-13 00:00 | METHYLPHENIDATE HCL | [facility] | + + + + | 2022-05-13 00:00 | METHYLPHENIDATE HCL | [facility] | + + + + | 2022-06-04 00:00 | METHYLPHENIDATE HCL | [facility] | + + + + | 2022-06-06 00:00 | METHYLPHENIDATE HCL | [facility] | + + + + | 2022-06-28 00:00 | METHYLPHENIDATE HCL | [facility] | + + + + | 2022-07-25 00:00 | METHYLPHENIDATE HCL | [facility] | + + + + | 2022-07-31 00:00 | METHYLPHENIDATE HCL | [facility] | + + + + | 2022-08-01 00:00 | METHYLPHENIDATE HCL | [facility] | + + + + | 2022-08-19 00:00 | METHYLPHENIDATE HCL | [facility] | + + + + | 2022-09-01 00:00 | METHYLPHENIDATE HCL | [facility] | + + + + | 2022-09-15 00:00 | METHYLPHENIDATE HCL | [facility] | + + + + | 2022-09-16 00:00 | METHYLPHENIDATE HCL | [facility] | + + + + | 2022-09-20 00:00 | METHYLPHENIDATE HCL | [facility] | + + + + | 2022-10-02 00:00 | METHYLPHENIDATE HCL | [facility] | + + + + | 2022-11-09 00:00 | METHYLPHENIDATE HCL | [facility] | + + + + | 2022-11-13 00:00 | METHYLPHENIDATE HCL | [facility] | + + + + | 2022-11-22 00:00 | METHYLPHENIDATE HCL | [facility] | + + + + | 2022-11-24 00:00 | METHYLPHENIDATE HCL | [facility] | + + + + | 2022-03-07 00:00 | PHENAZOPYRIDINE HCL | [facility] | + + + + | 2022-03-07 00:00 | PHENAZOPYRIDINE HCL | [facility] | + + + + | 2022-03-07 00:00 | PHENAZOPYRIDINE HCL | [facility] | + + + + | 2022-03-07 00:00 | PHENAZOPYRIDINE HCL | [facility] | + + + + | 2022-03-07 00:00 | PHENAZOPYRIDINE HCL | [facility] | + + + + | 2022-03-07 00:00 | PHENAZOPYRIDINE HCL | [facility] | + + + + | 2022-03-07 00:00 | PHENAZOPYRIDINE HCL | [facility] | + + + + 2022-03-07 00:00 | PHENAZOPYRIDINE HCL | [facility] | + + + + | 2022-03-07 00:00 | PHENAZOPYRIDINE HCL | [facility] | + + + + | 2022-04-13 00:00 | clonAZEpam | [facility] | + + + + | 2022-04-29 00:00 | clonAZEpam | [facility] | + + + + | 2022-11-09 00:00 | | [facility] | | | SULFAMETHOXAZOLE/TRIMETHOPR | | | | IM | | + + + + | 2022-09-20 00:00 | ACETAMINOPHEN | [facility] | + + + + | 2022-10-02 00:00 | ACETAMINOPHEN | [facility] | + + + + | 2022-11-09 00:00 | ACETAMINOPHEN | [facility] | + + + + | 2022-11-13 00:00 | ACETAMINOPHEN | [facility] | + + + + | 2022-11-22 00:00 | ACETAMINOPHEN | [facility] | + + + + | 2022-11-24 00:00 | ACETAMINOPHEN | [facility] | + + + + | 2022-03-04 00:00 | CIPROFLOXACIN HCL | [facility] | + + + + | 2022-11-13 00:00 | CIPROFLOXACIN HCL | [facility] | + + + + | 2022-11-13 00:00 | CIPROFLOXACIN HCL | [facility] | + + + + | 2022-11-13 00:00 | CIPROFLOXACIN HCL | [facility] | + + + + | 2022-06-25 00:00 | METOCLOPRAMIDE HCL | [facility] | + + + + | 2022-07-25 00:00 | | [facility] | | | SULFAMETHOXAZOLE/TRIMETHOPR | | | | IM | | + + + + | 2022-07-25 00:00 | | [facility] | | | SULFAMETHOXAZOLE/TRIMETHOPR | | | | IM | | + + + + | 2022-07-25 00:00 | | [facility] | | | SULFAMETHOXAZOLE/TRIMETHOPR | | | | IM | | + + + + | 2022-07-25 00:00 | | [facility] | | | SULFAMETHOXAZOLE/TRIMETHOPR | | | | IM | | + + + + | 2022-07-25 00:00 | | [facility] | | | SULFAMETHOXAZOLE/TRIMETHOPR | | | | IM | | + + + + | 2022-07-25 00:00 | | [facility] | | | SULFAMETHOXAZOLE/TRIMETHOPR | | | | IM | | + + + + | 2022-06-25 00:00 | PANTOPRAZOLE SODIUM | [facility] | + + + + | 2022-01-14 00:00 | MIRTAZAPINE | [facility] | + + + + | 2022-01-26 00:00 | MIRTAZAPINE | [facility] | + + + + | 2022-02-04 00:00 | MIRTAZAPINE | [facility] | + + + + | 2022-02-28 00:00 | MIRTAZAPINE | [facility] | + + + + | 2022-03-04 00:00 | MIRTAZAPINE | [facility] | + + + + | 2022-03-07 00:00 | MIRTAZAPINE | [facility] | + + + + | 2022-03-31 00:00 | MIRTAZAPINE | [facility] | + + + + | 2022-04-02 00:00 | MIRTAZAPINE | [facility] | + + + + | 2022-04-13 00:00 | MIRTAZAPINE | [facility] | + + + + | 2022-04-29 00:00 | MIRTAZAPINE | [facility] | + + + + | 2022-05-13 00:00 | MIRTAZAPINE | [facility] | + + + + | 2022-05-13 00:00 | MIRTAZAPINE | [facility] | + + + + | 2022-06-04 00:00 | MIRTAZAPINE | [facility] | + + + + | 2022-06-06 00:00 | MIRTAZAPINE | [facility] | + + + + | 2022-06-28 00:00 | MIRTAZAPINE | [facility] | + + + + | 2022-07-25 00:00 | MIRTAZAPINE | [facility] | + + + + | 2022-07-31 00:00 | MIRTAZAPINE | [facility] | + + + + | 2022-08-01 00:00 | MIRTAZAPINE | [facility] | + + + + | 2022-08-19 00:00 | MIRTAZAPINE | [facility] | + + + + | 2022-09-01 00:00 | MIRTAZAPINE | [facility] | + + + + | 2022-09-15 00:00 | MIRTAZAPINE | [facility] | + + + + | 2022-09-16 00:00 | MIRTAZAPINE | [facility] | + + + + | 2022-09-20 00:00 | MIRTAZAPINE | [facility] | + + + + | 2022-10-02 00:00 | MIRTAZAPINE | [facility] | + + + + | 2022-11-09 00:00 | MIRTAZAPINE | [facility] | + + + + | 2022-11-13 00:00 | MIRTAZAPINE | [facility] | + + + + | 2022-11-22 00:00 | MIRTAZAPINE | [facility] | + + + + | 2022-11-24 00:00 | MIRTAZAPINE | [facility] | + + + + | 2020-07-13 00:00 | ONDANSETRON | [facility] | + + + + | 2020-07-13 00:00 | ONDANSETRON | [facility] | + + + + | 2020-07-13 00:00 | ONDANSETRON | [facility] | + + + + | 2020-07-13 00:00 | ONDANSETRON | [facility] | + + + + | 2020-07-13 00:00 | ONDANSETRON | [facility] | + + + + | 2020-07-13 00:00 | ONDANSETRON | [facility] | + + + + | 2020-07-13 00:00 | ONDANSETRON | [facility] | + + + + | 2020-07-13 00:00 | ONDANSETRON | [facility] | + + + + | 2020-07-13 00:00 | ONDANSETRON | [facility] | + + + + | 2022-04-02 00:00 | ONDANSETRON | [facility] | + + + + | 2022-04-02 00:00 | ONDANSETRON | [facility] | + + + + | 2022-04-02 00:00 | ONDANSETRON | [facility] | + + + + | 2022-04-02 00:00 | ONDANSETRON | [facility] | + + + + | 2022-04-02 00:00 | ONDANSETRON | [facility] | + + + + | 2022-04-02 00:00 | ONDANSETRON | [facility] | + + + + | 2022-04-02 00:00 | ONDANSETRON | [facility] | + + + + | 2022-04-02 00:00 | ONDANSETRON | [facility] | + + + + | 2022-04-02 00:00 | ONDANSETRON | [facility] | + + + + | 2022-11-13 00:00 | ONDANSETRON | [facility] | + + + + | 2022-11-13 00:00 | ONDANSETRON | [facility] | + + + + | 2022-11-13 00:00 | ONDANSETRON | [facility] | + + + + | 2020-07-06 00:00 | predniSONE | [facility] | + + + + | 2020-07-06 00:00 | predniSONE | [facility] | + + + + | 2020-07-06 00:00 | predniSONE | [facility] | + + + + | 2020-07-06 00:00 | predniSONE | [facility] | + + + + | 2020-07-06 00:00 | predniSONE | [facility] | + + + + | 2020-07-06 00:00 | predniSONE | [facility] | + + + + | 2020-07-06 00:00 | predniSONE | [facility] | + + + + | 2020-07-06 00:00 | predniSONE | [facility] | + + + + | 2020-07-06 00:00 | predniSONE | [facility] | + + + + | 2022-11-09 00:00 | AMOXICILLIN/POTASSIUM CLAV | [facility] | | | | | + + + + | 2022-01-14 00:00 | DULOXETINE HCL | [facility] | + + + + | 2022-01-26 00:00 | DULOXETINE HCL | [facility] | + + + + | 2022-02-04 00:00 | DULOXETINE HCL | [facility] | + + + + | 2022-02-28 00:00 | DULOXETINE HCL | [facility] | + + + + | 2022-03-04 00:00 | DULOXETINE HCL | [facility] | + + + + | 2022-03-07 00:00 | DULOXETINE HCL | [facility] | + + + + | 2022-03-31 00:00 | DULOXETINE HCL | [facility] | + + + + | 2022-04-02 00:00 | DULOXETINE HCL | [facility] | + + + + | 2022-04-13 00:00 | DULOXETINE HCL | [facility] | + + + + | 2022-04-29 00:00 | DULOXETINE HCL | [facility] | + + + + | 2022-05-13 00:00 | DULOXETINE HCL | [facility] | + + + + | 2022-05-13 00:00 | DULOXETINE HCL | [facility] | + + + + | 2022-06-04 00:00 | DULOXETINE HCL | [facility] | + + + + | 2022-06-06 00:00 | DULOXETINE HCL | [facility] | + + + + | 2022-06-28 00:00 | DULOXETINE HCL | [facility] | + + + + | 2022-07-25 00:00 | DULOXETINE HCL | [facility] | + + + + | 2022-07-31 00:00 | DULOXETINE HCL | [facility] | + + + + | 2022-08-01 00:00 | DULOXETINE HCL | [facility] | + + + + | 2022-08-19 00:00 | DULOXETINE HCL | [facility] | + + + + | 2022-09-01 00:00 | DULOXETINE HCL | [facility] | + + + + | 2022-09-15 00:00 | DULOXETINE HCL | [facility] | + + + + | 2022-09-16 00:00 | DULOXETINE HCL | [facility] | + + + + | 2022-09-20 00:00 | DULOXETINE HCL | [facility] | + + + + | 2022-10-02 00:00 | DULOXETINE HCL | [facility] | + + + + | 2022-11-09 00:00 | DULOXETINE HCL | [facility] | + + + + | 2022-11-13 00:00 | DULOXETINE HCL | [facility] | + + + + | 2022-11-22 00:00 | DULOXETINE HCL | [facility] | + + + + | 2022-11-24 00:00 | DULOXETINE HCL | [facility] | + + + + | 2022-05-13 00:00 | DULOXETINE HCL | [facility] | + + + + | 2022-05-13 00:00 | DULOXETINE HCL | [facility] | + + + + | 2022-06-04 00:00 | DULOXETINE HCL | [facility] | + + + + | 2022-06-06 00:00 | DULOXETINE HCL | [facility] | + + + + | 2022-06-28 00:00 | DULOXETINE HCL | [facility] | + + + + | 2022-07-25 00:00 | DULOXETINE HCL | [facility] | + + + + | 2022-07-31 00:00 | DULOXETINE HCL | [facility] | + + + + | 2022-08-01 00:00 | DULOXETINE HCL | [facility] | + + + + | 2022-09-20 00:00 | CLINDAMYCIN HCL | [facility] | + + + + | 2022-10-02 00:00 | CLINDAMYCIN HCL | [facility] | + + + + | 2022-11-09 00:00 | CLINDAMYCIN HCL | [facility] | + + + + | 2022-09-20 00:00 | Cholecalciferol (Vitamin | [facility] | | | D3) | | + + + + | 2022-10-02 00:00 | Cholecalciferol (Vitamin | [facility] | | | D3) | | + + + + | 2022-11-09 00:00 | Cholecalciferol (Vitamin | [facility] | | | D3) | | + + + + | 2022-11-13 00:00 | Cholecalciferol (Vitamin | [facility] | | | D3) | | + + + + | 2022-11-22 00:00 | Cholecalciferol (Vitamin | [facility] | | | D3) | | + + + + | 2022-11-24 00:00 | Cholecalciferol (Vitamin | [facility] | | | D3) | | + + + + | 2020-07-13 00:00 | AMOXICILLIN/POTASSIUM CLAV | [facility] | | | | | + + + + | 2020-07-13 00:00 | AMOXICILLIN/POTASSIUM CLAV | [facility] | | | | | + + + + | 2020-07-13 00:00 | AMOXICILLIN/POTASSIUM CLAV | [facility] | | | | | + + + + | 2020-07-13 00:00 | AMOXICILLIN/POTASSIUM CLAV | [facility] | | | | | + + + + | 2020-07-13 00:00 | AMOXICILLIN/POTASSIUM CLAV | [facility] | | | | | + + + + | 2020-07-13 00:00 | AMOXICILLIN/POTASSIUM CLAV | [facility] | | | | | + + + + | 2020-07-13 00:00 | AMOXICILLIN/POTASSIUM CLAV | [facility] | | | | | + + + + | 2020-07-13 00:00 | AMOXICILLIN/POTASSIUM CLAV | [facility] | | | | | + + + + | 2020-07-13 00:00 | AMOXICILLIN/POTASSIUM CLAV | [facility] | | | | | + + + + | 2020-10-15 00:00 | CYCLOBENZAPRINE HCL | [facility] | + + + + | 2020-10-15 00:00 | CYCLOBENZAPRINE HCL | [facility] | + + + + | 2020-10-15 00:00 | CYCLOBENZAPRINE HCL | [facility] | + + + + | 2020-10-15 00:00 | CYCLOBENZAPRINE HCL | [facility] | + + + + | 2020-10-15 00:00 | CYCLOBENZAPRINE HCL | [facility] | + + + + | 2020-10-15 00:00 | CYCLOBENZAPRINE HCL | [facility] | + + + + | 2020-10-15 00:00 | CYCLOBENZAPRINE HCL | [facility] | + + + + | 2020-10-15 00:00 | CYCLOBENZAPRINE HCL | [facility] | + + + + | 2020-10-15 00:00 | CYCLOBENZAPRINE HCL | [facility] | + + + + | 2020-07-13 00:00 | TRAMADOL HCL | [facility] | + + + + | 2020-07-13 00:00 | TRAMADOL HCL | [facility] | + + + + | 2020-07-13 00:00 | TRAMADOL HCL | [facility] | + + + + | 2020-07-13 00:00 | TRAMADOL HCL | [facility] | + + + + | 2020-07-13 00:00 | TRAMADOL HCL | [facility] | + + + + | 2020-07-13 00:00 | TRAMADOL HCL | [facility] | + + + + | 2020-07-13 00:00 | TRAMADOL HCL | [facility] | + + + + | 2020-07-13 00:00 | TRAMADOL HCL | [facility] | + + + + | 2020-07-13 00:00 | TRAMADOL HCL | [facility] | + + + + | 2020-07-08 00:00 | | [facility] | | | SULFAMETHOXAZOLE/TRIMETHOPR | | | | IM DS | | + + + + | 2020-07-08 00:00 | | [facility] | | | SULFAMETHOXAZOLE/TRIMETHOPR | | | | IM DS | | + + + + | 2020-07-08 00:00 | | [facility] | | | SULFAMETHOXAZOLE/TRIMETHOPR | | | | IM DS | | + + + + | 2020-07-08 00:00 | | [facility] | | | SULFAMETHOXAZOLE/TRIMETHOPR | | | | IM DS | | + + + + | 2020-07-08 00:00 | | [facility] | | | SULFAMETHOXAZOLE/TRIMETHOPR | | | | IM DS | | + + + + | 2020-07-08 00:00 | | [facility] | | | SULFAMETHOXAZOLE/TRIMETHOPR | | | | IM DS | | + + + + | 2020-07-08 00:00 | | [facility] | | | SULFAMETHOXAZOLE/TRIMETHOPR | | | | IM DS | | + + + + | 2020-07-08 00:00 | | [facility] | | | SULFAMETHOXAZOLE/TRIMETHOPR | | | | IM DS | | + + + + | 2020-07-08 00:00 | | [facility] | | | SULFAMETHOXAZOLE/TRIMETHOPR | | | | IM DS | | + + + + | 2022-03-07 00:00 | | [facility] | | | SULFAMETHOXAZOLE/TRIMETHOPR | | | | IM DS | | + + + + | 2022-03-07 00:00 | | [facility] | | | SULFAMETHOXAZOLE/TRIMETHOPR | | | | IM DS | | + + + + | 2022-03-07 00:00 | | [facility] | | | SULFAMETHOXAZOLE/TRIMETHOPR | | | | IM DS | | + + + + | 2022-03-07 00:00 | | [facility] | | | SULFAMETHOXAZOLE/TRIMETHOPR | | | | IM DS | | + + + + | 2022-03-07 00:00 | | [facility] | | | SULFAMETHOXAZOLE/TRIMETHOPR | | | | IM DS | | + + + + | 2022-03-07 00:00 | | [facility] | | | SULFAMETHOXAZOLE/TRIMETHOPR | | | | IM DS | | + + + + | 2022-03-07 00:00 | | [facility] | | | SULFAMETHOXAZOLE/TRIMETHOPR | | | | IM DS | | + + + + | 2022-03-07 00:00 | | [facility] | | | SULFAMETHOXAZOLE/TRIMETHOPR | | | | IM DS | | + + + + | 2022-03-07 00:00 | | [facility] | | | SULFAMETHOXAZOLE/TRIMETHOPR | | | | IM DS | | + + + + | 2022-08-01 00:00 | | [facility] | | | SULFAMETHOXAZOLE/TRIMETHOPR | | | | IM DS | | + + + + | 2022-08-01 00:00 | | [facility] | | | SULFAMETHOXAZOLE/TRIMETHOPR | | | | IM DS | | + + + + | 2022-08-01 00:00 | | [facility] | | | SULFAMETHOXAZOLE/TRIMETHOPR | | | | IM DS | | + + + + | 2022-08-01 00:00 | | [facility] | | | SULFAMETHOXAZOLE/TRIMETHOPR | | | | IM DS | | + + + + | 2022-08-01 00:00 | | [facility] | | | SULFAMETHOXAZOLE/TRIMETHOPR | | | | IM DS | | + + + + | 2022-03-04 00:00 | ZOLPIDEM TARTRATE | [facility] | + + + + | 2022-03-07 00:00 | ZOLPIDEM TARTRATE | [facility] | + + + + | 2022-03-31 00:00 | ZOLPIDEM TARTRATE | [facility] | + + + + | 2022-04-02 00:00 | ZOLPIDEM TARTRATE | [facility] | + + + + | 2022-04-13 00:00 | ZOLPIDEM TARTRATE | [facility] | + + + + | 2022-04-29 00:00 | ZOLPIDEM TARTRATE | [facility] | + + + + | 2022-05-13 00:00 | ZOLPIDEM TARTRATE | [facility] | + + + + | 2022-05-13 00:00 | ZOLPIDEM TARTRATE | [facility] | + + + + | 2022-06-04 00:00 | ZOLPIDEM TARTRATE | [facility] | + + + + | 2022-06-06 00:00 | ZOLPIDEM TARTRATE | [facility] | + + + + | 2022-06-28 00:00 | ZOLPIDEM TARTRATE | [facility] | + + + + | 2022-07-25 00:00 | ZOLPIDEM TARTRATE | [facility] | + + + + | 2022-07-31 00:00 | ZOLPIDEM TARTRATE | [facility] | + + + + | 2022-08-01 00:00 | ZOLPIDEM TARTRATE | [facility] | + + + + | 2022-08-19 00:00 | ZOLPIDEM TARTRATE | [facility] | + + + + | 2022-09-01 00:00 | ZOLPIDEM TARTRATE | [facility] | + + + + | 2022-09-15 00:00 | ZOLPIDEM TARTRATE | [facility] | + + + + | 2022-09-16 00:00 | ZOLPIDEM TARTRATE | [facility] | + + + + | 2022-09-20 00:00 | ZOLPIDEM TARTRATE | [facility] | + + + + | 2022-10-02 00:00 | ZOLPIDEM TARTRATE | [facility] | + + + + | 2022-11-09 00:00 | ZOLPIDEM TARTRATE | [facility] | + + + + | 2022-11-13 00:00 | ZOLPIDEM TARTRATE | [facility] | + + + + | 2022-11-22 00:00 | ZOLPIDEM TARTRATE | [facility] | + + + + | 2022-11-24 00:00 | ZOLPIDEM TARTRATE | [facility] | + + + + | 2022-03-04 00:00 | TRAZODONE HCL | [facility] | + + + + | 2022-03-07 00:00 | TRAZODONE HCL | [facility] | + + + + | 2022-03-31 00:00 | TRAZODONE HCL | [facility] | + + + + | 2022-04-02 00:00 | TRAZODONE HCL | [facility] | + + + + | 2022-04-13 00:00 | TRAZODONE HCL | [facility] | + + + + | 2022-04-29 00:00 | TRAZODONE HCL | [facility] | + + + + | 2022-05-13 00:00 | TRAZODONE HCL | [facility] | + + + + | 2022-05-13 00:00 | TRAZODONE HCL | [facility] | + + + + | 2022-06-04 00:00 | TRAZODONE HCL | [facility] | + + + + | 2022-06-06 00:00 | TRAZODONE HCL | [facility] | + + + + 2022-06-28 00:00 | TRAZODONE HCL | [facility] | + + + + | 2022-07-25 00:00 | TRAZODONE HCL | [facility] | + + + + | 2022-07-31 00:00 | TRAZODONE HCL | [facility] | + + + + | 2022-08-01 00:00 | TRAZODONE HCL | [facility] | + + + + | 2022-08-19 00:00 | TRAZODONE HCL | [facility] | + + + + | 2022-09-01 00:00 | TRAZODONE HCL | [facility] | + + + + | 2022-09-15 00:00 | TRAZODONE HCL | [facility] | + + + + | 2022-09-16 00:00 | TRAZODONE HCL | [facility] | + + + + | 2022-09-20 00:00 | TRAZODONE HCL | [facility] | + + + + | 2022-10-02 00:00 | TRAZODONE HCL | [facility] | + + + + | 2022-11-09 00:00 | TRAZODONE HCL | [facility] | + + + + | 2022-11-13 00:00 | TRAZODONE HCL | [facility] | + + + + | 2022-11-22 00:00 | TRAZODONE HCL | [facility] | + + + + | 2022-11-24 00:00 | TRAZODONE HCL | [facility] | + + + + | 2020-07-08 00:00 | HYDROCODONE | [facility] | | | BIT/ACETAMINOPHEN | | + + + + | 2020-07-08 00:00 | HYDROCODONE | [facility] | | | BIT/ACETAMINOPHEN | | + + + + | 2020-07-08 00:00 | HYDROCODONE | [facility] | | | BIT/ACETAMINOPHEN | | + + + + | 2020-07-08 00:00 | HYDROCODONE | [facility] | | | BIT/ACETAMINOPHEN | | + + + + | 2020-07-08 00:00 | HYDROCODONE | [facility] | | | BIT/ACETAMINOPHEN | | + + + + | 2020-07-08 00:00 | HYDROCODONE | [facility] | | | BIT/ACETAMINOPHEN | | + + + + | 2020-07-08 00:00 | HYDROCODONE | [facility] | | | BIT/ACETAMINOPHEN | | + + + + | 2020-07-08 00:00 | HYDROCODONE | [facility] | | | BIT/ACETAMINOPHEN | | + + + + | 2020-07-08 00:00 | HYDROCODONE | [facility] | | | BIT/ACETAMINOPHEN | | + + + + | 2022-11-22 00:00 | HYDROCODONE | [facility] | | | BIT/ACETAMINOPHEN | | + + + + | 2022-11-22 00:00 | HYDROCODONE | [facility] | | | BIT/ACETAMINOPHEN | | + + + + | 2022-01-14 00:00 | ASENAPINE MALEATE | [facility] | + + + + | 2022-01-26 00:00 | ASENAPINE MALEATE | [facility] | + + + + | 2022-02-04 00:00 | ASENAPINE MALEATE | [facility] | + + + + | 2022-02-28 00:00 | ASENAPINE MALEATE | [facility] | + + + + | 2022-03-04 00:00 | ASENAPINE MALEATE | [facility] | + + + + | 2022-03-07 00:00 | ASENAPINE MALEATE | [facility] | + + + + | 2022-03-31 00:00 | ASENAPINE MALEATE | [facility] | + + + + | 2022-04-02 00:00 | ASENAPINE MALEATE | [facility] | + + + + | 2022-04-13 00:00 | ASENAPINE MALEATE | [facility] | + + + + | 2022-04-29 00:00 | ASENAPINE MALEATE | [facility] | + + + + | 2022-05-13 00:00 | ASENAPINE MALEATE | [facility] | + + + + | 2022-05-13 00:00 | ASENAPINE MALEATE | [facility] | + + + + | 2022-06-04 00:00 | ASENAPINE MALEATE | [facility] | + + + + | 2022-06-06 00:00 | ASENAPINE MALEATE | [facility] | + + + + | 2022-06-28 00:00 | ASENAPINE MALEATE | [facility] | + + + + | 2022-07-25 00:00 | ASENAPINE MALEATE | [facility] | + + + + | 2022-07-31 00:00 | ASENAPINE MALEATE | [facility] | + + + + | 2022-08-01 00:00 | ASENAPINE MALEATE | [facility] | + + + + | 2022-08-19 00:00 | ASENAPINE MALEATE | [facility] | + + + + | 2022-09-01 00:00 | ASENAPINE MALEATE | [facility] | + + + + | 2022-09-15 00:00 | ASENAPINE MALEATE | [facility] | + + + + | 2022-09-16 00:00 | ASENAPINE MALEATE | [facility] | + + + + | 2022-09-20 00:00 | ASENAPINE MALEATE | [facility] | + + + + | 2022-10-02 00:00 | ASENAPINE MALEATE | [facility] | + + + + | 2022-11-09 00:00 | ASENAPINE MALEATE | [facility] | + + + + | 2022-11-13 00:00 | ASENAPINE MALEATE | [facility] | + + + + | 2022-11-22 00:00 | ASENAPINE MALEATE | [facility] | + + + + | 2022-11-24 00:00 | ASENAPINE MALEATE | [facility] | + + + + | 2020-07-06 00:00 | MORPHINE SULFATE | [facility] | + + + + | 2020-07-06 00:00 | MORPHINE SULFATE | [facility] | + + + + | 2020-07-06 00:00 | MORPHINE SULFATE | [facility] | + + + + | 2020-07-06 00:00 | MORPHINE SULFATE | [facility] | + + + + | 2020-07-06 00:00 | MORPHINE SULFATE | [facility] | + + + + | 2020-07-06 00:00 | MORPHINE SULFATE | [facility] | + + + + | 2020-07-06 00:00 | MORPHINE SULFATE | [facility] | + + + + | 2020-07-06 00:00 | MORPHINE SULFATE | [facility] | + + + + | 2020-07-06 00:00 | MORPHINE SULFATE | [facility] | + + + + | 2022-05-13 00:00 | PROMETHAZINE HCL | [facility] | + + + + | 2022-05-13 00:00 | PROMETHAZINE HCL | [facility] | + + + + | 2022-06-04 00:00 | PROMETHAZINE HCL | [facility] | + + + + | 2022-06-06 00:00 | PROMETHAZINE HCL | [facility] | + + + + | 2022-06-28 00:00 | PROMETHAZINE HCL | [facility] | + + + + | 2022-07-25 00:00 | PROMETHAZINE HCL | [facility] | + + + + | 2022-07-31 00:00 | PROMETHAZINE HCL | [facility] | + + + + | 2022-08-01 00:00 | PROMETHAZINE HCL | [facility] | + + + + | 2022-08-19 00:00 | PROMETHAZINE HCL | [facility] | + + + + | 2022-09-01 00:00 | PROMETHAZINE HCL | [facility] | + + + + | 2022-09-15 00:00 | PROMETHAZINE HCL | [facility] | + + + + | 2022-09-16 00:00 | PROMETHAZINE HCL | [facility] | + + + + | 2022-09-20 00:00 | PROMETHAZINE HCL | [facility] | + + + + | 2022-10-02 00:00 | PROMETHAZINE HCL | [facility] | + + + + | 2022-11-09 00:00 | PROMETHAZINE HCL | [facility] | + + + + | 2022-11-13 00:00 | PROMETHAZINE HCL | [facility] | + + + + | 2022-11-22 00:00 | PROMETHAZINE HCL | [facility] | + + + + | 2022-11-24 00:00 | PROMETHAZINE HCL | [facility] | + + + + Problems + + + + | date | description | facility | + + + + | 2020-07-06 00:00 | Sciatica associated with | [facility] | | | disorder of lumbar spine | | + + + + | 2020-07-06 00:00 | Sciatica associated with | [facility] | | | disorder of lumbar spine | | + + + + | 2020-07-06 00:00 | Sciatica associated with | [facility] | | | disorder of lumbar spine | | + + + + | 2020-07-06 00:00 | Sciatica associated with | [facility] | | | disorder of lumbar spine | | + + + + | 2020-07-06 00:00 | Sciatica associated with | [facility] | | | disorder of lumbar spine | | + + + + | 2020-07-06 00:00 | Sciatica associated with | [facility] | | | disorder of lumbar spine | | + + + + | 2020-07-06 00:00 | Sciatica associated with | [facility] | | | disorder of lumbar spine | | + + + + | 2020-07-06 00:00 | Sciatica associated with | [facility] | | | disorder of lumbar spine | | + + + + | 2020-07-06 00:00 | Sciatica associated with | [facility] | | | disorder of lumbar spine | | + + + + | 2020-07-20 00:00 | Urinary tract infection | [facility] | + + + + | 2020-07-20 00:00 | Urinary tract infection | [facility] | + + + + | 2020-07-20 00:00 | Urinary tract infection | [facility] | + + + + | 2020-07-20 00:00 | Urinary tract infection | [facility] | + + + + | 2020-07-20 00:00 | Urinary tract infection | [facility] | + + + + | 2020-07-20 00:00 | Urinary tract infection | [facility] | + + + + | 2020-07-20 00:00 | Urinary tract infection | [facility] | + + + + | 2020-07-20 00:00 | Urinary tract infection | [facility] | + + + + | 2020-07-20 00:00 | Urinary tract infection | [facility] | + + + + | 2022-03-31 00:00 | Anxiety | [facility] | + + + + | 2022-03-31 00:00 | Anxiety | [facility] | + + + + | 2022-03-31 00:00 | Anxiety | [facility] | + + + + | 2022-03-31 00:00 | Anxiety | [facility] | + + + + | 2022-03-31 00:00 | Anxiety | [facility] | + + + + | 2022-03-31 00:00 | Anxiety | [facility] | + + + + | 2022-03-31 00:00 | Anxiety | [facility] | + + + + | 2022-03-31 00:00 | Anxiety | [facility] | + + + + | 2022-03-31 00:00 | Anxiety | [facility] | + + + + | 2022-03-31 00:00 | Grief | [facility] | + + + + | 2022-03-31 00:00 | Grief | [facility] | + + + + | 2022-03-31 00:00 | Grief | [facility] | + + + + | 2022-03-31 00:00 | Grief | [facility] | + + + + | 2022-03-31 00:00 | Grief | [facility] | + + + + | 2022-03-31 00:00 | Grief | [facility] | + + + + | 2022-03-31 00:00 | Grief | [facility] | + + + + | 2022-03-31 00:00 | Grief | [facility] | + + + + | 2022-03-31 00:00 | Grief | [facility] | + + + + | 2022-03-31 00:00 | Chest pain | [facility] | + + + + | 2022-03-31 00:00 | Chest pain | [facility] | + + + + | 2022-03-31 00:00 | Chest pain | [facility] | + + + + | 2022-03-31 00:00 | Chest pain | [facility] | + + + + | 2022-03-31 00:00 | Chest pain | [facility] | + + + + | 2022-03-31 00:00 | Chest pain | [facility] | + + + + | 2022-03-31 00:00 | Chest pain | [facility] | + + + + | 2022-03-31 00:00 | Chest pain | [facility] | + + + + | 2022-03-31 00:00 | Chest pain | [facility] | + + + + | 2022-04-02 00:00 | Chronic pain syndrome | [facility] | + + + + | 2022-04-02 00:00 | Chronic pain syndrome | [facility] | + + + + | 2022-04-02 00:00 | Chronic pain syndrome | [facility] | + + + + | 2022-04-02 00:00 | Chronic pain syndrome | [facility] | + + + + | 2022-04-02 00:00 | Chronic pain syndrome | [facility] | + + + + | 2022-04-02 00:00 | Chronic pain syndrome | [facility] | + + + + | 2022-04-02 00:00 | Chronic pain syndrome | [facility] | + + + + | 2022-04-02 00:00 | Chronic pain syndrome | [facility] | + + + + | 2022-04-02 00:00 | Chronic pain syndrome | [facility] | + + + + | 2022-04-02 00:00 | Atypical chest pain | [facility] | + + + + | 2022-04-02 00:00 | Atypical chest pain | [facility] | + + + + | 2022-04-02 00:00 | Atypical chest pain | [facility] | + + + + | 2022-04-02 00:00 | Atypical chest pain | [facility] | + + + + | 2022-04-02 00:00 | Atypical chest pain | [facility] | + + + + | 2022-04-02 00:00 | Atypical chest pain | [facility] | + + + + | 2022-04-02 00:00 | Atypical chest pain | [facility] | + + + + | 2022-04-02 00:00 | Atypical chest pain | [facility] | + + + + | 2022-04-02 00:00 | Atypical chest pain | [facility] | + + + + | 2022-04-29 00:00 | Left lower quadrant | [facility] | | | abdominal pain | | + + + + | 2022-04-29 00:00 | Left lower quadrant | [facility] | | | abdominal pain | | + + + + | 2022-04-29 00:00 | Left lower quadrant | [facility] | | | abdominal pain | | + + + + | 2022-04-29 00:00 | Left lower quadrant | [facility] | | | abdominal pain | | + + + + | 2022-04-29 00:00 | Left lower quadrant | [facility] | | | abdominal pain | | + + + + | 2022-04-29 00:00 | Left lower quadrant | [facility] | | | abdominal pain | | + + + + | 2022-04-29 00:00 | Left lower quadrant | [facility] | | | abdominal pain | | + + + + | 2022-04-29 00:00 | Left lower quadrant | [facility] | | | abdominal pain | | + + + + | 2022-04-29 00:00 | Nausea and vomiting | [facility] | + + + + | 2022-04-29 00:00 | Nausea and vomiting | [facility] | + + + + | 2022-04-29 00:00 | Nausea and vomiting | [facility] | + + + + | 2022-04-29 00:00 | Nausea and vomiting | [facility] | + + + + | 2022-04-29 00:00 | Nausea and vomiting | [facility] | + + + + | 2022-04-29 00:00 | Nausea and vomiting | [facility] | + + + + | 2022-04-29 00:00 | Nausea and vomiting | [facility] | + + + + | 2022-04-29 00:00 | Nausea and vomiting | [facility] | + + + + | 2022-04-29 00:00 | Lung nodule | [facility] | + + + + | 2022-04-29 00:00 | Lung nodule | [facility] | + + + + | 2022-04-29 00:00 | Lung nodule | [facility] | + + + + | 2022-04-29 00:00 | Lung nodule | [facility] | + + + + | 2022-04-29 00:00 | Lung nodule | [facility] | + + + + | 2022-04-29 00:00 | Lung nodule | [facility] | + + + + | 2022-04-29 00:00 | Lung nodule | [facility] | + + + + | 2022-04-29 00:00 | Lung nodule | [facility] | + + + + | 2022-05-12 00:00 | Upper respiratory tract | [facility] | | | infection | | + + + + | 2022-05-12 00:00 | Upper respiratory tract | [facility] | | | infection | | + + + + | 2022-05-12 00:00 | Upper respiratory tract | [facility] | | | infection | | + + + + | 2022-05-12 00:00 | Upper respiratory tract | [facility] | | | infection | | + + + + | 2022-05-12 00:00 | Upper respiratory tract | [facility] | | | infection | | + + + + | 2022-05-12 00:00 | Upper respiratory tract | [facility] | | | infection | | + + + + | 2022-05-12 00:00 | Upper respiratory tract | [facility] | | | infection | | + + + + | 2022-05-12 00:00 | Upper respiratory tract | [facility] | | | infection | | + + + + | 2022-06-04 00:00 | Neck sprain | [facility] | + + + + | 2022-06-04 00:00 | Neck sprain | [facility] | + + + + | 2022-06-04 00:00 | Neck sprain | [facility] | + + + + | 2022-06-04 00:00 | Neck sprain | [facility] | + + + + | 2022-06-04 00:00 | Neck sprain | [facility] | + + + + | 2022-06-04 00:00 | Neck sprain | [facility] | + + + + | 2022-06-04 00:00 | Neck sprain | [facility] | + + + [...] + | 2022-06-06 00:00 | Concussion | [facility] | + + + + | 2022-06-06 00:00 | Concussion | [facility] | + + + + | 2022-06-06 00:00 | Concussion | [facility] | + + + + | 2022-06-06 00:00 | Concussion | [facility] | + + + + | 2022-06-06 00:00 | Concussion | [facility] | + + + + | 2022-06-06 00:00 | Concussion | [facility] | + + + + | 2022-06-06 00:00 | Concussion | [facility] | + + + + | 2022-06-06 00:00 | Injury of head | [facility] | + + + + | 2022-06-06 00:00 | Injury of head | [facility] | + + + + | 2022-06-06 00:00 | Injury of head | [facility] | + + + + | 2022-06-06 00:00 | Injury of head | [facility] | + + + + | 2022-06-06 00:00 | Injury of head | [facility] | + + + + | 2022-06-06 00:00 | Injury of head | [facility] | + + + + | 2022-06-06 00:00 | Injury of head | [facility] | + + + [...] + + | 2022-06-06 13:10 | OTHER PRISON (CURRENT) | [facility] | | | DRUG [...] | 2022-06-25 00:00 | Abdominal pain | [facility] | + + + + | 2022-06-25 00:00 | Abdominal pain | [facility] | + + + + | 2022-06-25 00:00 | Abdominal pain | [facility] | + + + + | 2022-06-25 00:00 | Abdominal pain | [facility] | + + + + | 2022-06-25 00:00 | Abdominal pain | [facility] | + + + + | 2022-06-25 00:00 | Abdominal pain | [facility] | + + + + | 2022-06-25 00:00 | Abdominal pain | [facility] | + + + [...] + + | 2022-06-25 12:18 | OTHER PRISON (CURRENT) | [facility] | | | DRUG [...] + + | 2022-07-25 10:43 | OTHER PRISON (CURRENT) | [facility] | | | DRUG [...] | Patient left without being | [facility] | | | seen | | + + + + | 2022-07-31 00:00 | Patient left without being | [facility] | | | seen | | + + + + | 2022-07-31 00:00 | Patient left without being | [facility] | | | seen | | + + + + | 2022-07-31 00:00 | Patient left without being | [facility] | | | seen | | + + + + | 2022-07-31 00:00 | Patient left without being | [facility] | | | seen | | + + + + | 2022-07-31 00:00 | Patient left without being | [facility] | | | seen | [...] + + | 2022-08-01 08:08 | OTHER INDUSTRIAL RELATIONS DIRECTOR (CURRENT) | [facility] | | | DRUG [...] + + | 2022-08-19 14:20 | OTHER INDUSTRIAL RELATIONS DIRECTOR (CURRENT) | [facility] | | | DRUG [...] 2022-09-01 00:00 | Chronic abdominal pain | [facility] | + + + + | 2022-09-01 00:00 | Chronic abdominal pain | [facility] | + + + + | 2022-09-01 00:00 | Chronic abdominal pain | [facility] | + + + + | 2022-09-01 00:00 | Chronic abdominal pain | [facility] | + + + + | 2022-09-01 00:00 | Chronic abdominal pain | [facility] | + + + + | 2022-09-01 00:00 | Headache | [facility] | + + + + | 2022-09-01 00:00 | Headache | [facility] | + + + + | 2022-09-01 00:00 | Headache | [facility] | + + + + | 2022-09-01 00:00 | Headache | [facility] | + + + + | 2022-09-01 00:00 | Headache | [facility] | + + + [...] + + | 2022-09-01 14:12 | OTHER INDUSTRIAL RELATIONS DIRECTOR (CURRENT) | [facility] | | | DRUG [...] + + | 2022-09-15 08:51 | OTHER PRISON (CURRENT) | [facility] | | | DRUG [...] + + | 2022-09-16 11:56 | OTHER PRISON (CURRENT) | [facility] | | | DRUG [...] + + | 2022-09-20 08:30 | OTHER INDUSTRIAL RELATIONS DIRECTOR (CURRENT) | [facility] | | | DRUG [...] + + | 2022-10-02 17:30 | OTHER INDUSTRIAL RELATIONS DIRECTOR (CURRENT) | [facility] | | | DRUG [...] + + | 2022-11-13 13:19 | OTHER INDUSTRIAL RELATIONS DIRECTOR (CURRENT) | [facility] | | | DRUG [...] + | 2022-11-22 00:00 | Pyelonephritis | [facility] | + + + + | 2022-11-22 00:00 | Pyelonephritis | [facility] | + + + [...] + + | 2022-11-22 11:47 | OTHER INDUSTRIAL RELATIONS DIRECTOR (CURRENT) | [facility] | | | DRUG [...] 2022-11-24 00:00 | Flank pain | [facility] | + + + + [...] AA HRN 1ST < 3 | [facility] | | | NCR/STRN | | + [...] (missing) | | (unavailable | 17:40 | [facility] | | | | | [...] (missing) | | (unavailable | 09:49:08 | [facility] | | | | | [...] (missing) | | (unavailable | 11:42:08 | [facility] | | | | | [...] (missing) | | (unavailable | 09:08:08 | [facility] | | | | | [...] (missing) | | (unavailable | 09:29:07 | [facility] | | | | | [...]
[~2023-01-04 17:47] MED LIST changes: +AMOX TR-K CLV1 EAC1 PO; +ONDANSETRON ODT4 MG PO; +PERCOCET 7.5-31 EACH PO; +SULFAMETHOXAZO1 EAC1 PO
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
[2023-01-04 20:40] VITALS: BP 167/97
== END 2023-01-04 20:40 | disposition home or self-care (01) ==
LOC: ED 17:47
DX: R10.32 Left lower quadrant pain (principal); F17.200 Nicotine dependence, unspecified, uncomplicated; Z88.8 Allergy status to other drugs, medicaments and biological substances; Z88.6 Allergy status to analgesic agent; Z88.5 Allergy status to narcotic agent; Z88.1 Allergy status to other antibiotic agents
CPT/HCPCS: 36415; 74177; 80053; 83690; 85025; 96375; 99284-25; J1170; J2405; J7030; Q9967

== ENCOUNTER 2023-02-02 10:12 | Emergency (ER) | payer OTHER ==
[~2023-02-02] VITALS: Ht 162.6 cm; Wt 120.5 kg
--- OUTSIDE RECORDS SUMMARY | ~2023-02-02 | XMS | Continuity of Care Document ---
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 | (no reaction) | (no severity) | [facility] | | | + + + + + + | (no date) | Paliperidone | [facility] | (no reaction) | (no severity) | | [facility] | | | + + + + + + | (no date) | Upset stomach | [facility] | (no reaction) | (no severity) | | [facility] | | | + + + + + + | (no date) | Carbamazepine | [facility] | (no reaction) | (no severity) | | [facility] | | | + + + + + + | (no date) | carbamazepine | [facility] | (no reaction) | (no severity) | | [facility] | | | + + + + + + | (no date) | Mild | [facility] | (no reaction) | (no severity) | | [facility] | | | + + + + + + | (no date) | Codeine | [facility] | (no reaction) | (no severity) | | [facility] | | | + + + + + + | (no date) | codeine | [facility] | (no reaction) | (no severity) | | [facility] | | | + + + + + + | (no date) | Rash | [facility] | (no reaction) | (no severity) | | [facility] | | | + + + + + + | (no date) | Amoxicillin | [facility] | (no reaction) | (no severity) | | [facility] | | + + + + + + | (no date) | Carbamazepine | [facility] | (no reaction) | (no severity) | | [facility] | | + + + + + + | (no date) | Ketorolac | [facility] | (no reaction) | (no severity) | | [facility] | | + + + + + + | (no date) | ketorolac | [facility] | (no reaction) | (no severity) | | [facility] | | + + + + + + | (no date) | Nitrofurantoin | [facility] | (no reaction) | (no severity) | | [facility] | | + + + + + + | (no date) | Carbamazepine | [facility] | (no reaction) | (no severity) | | [facility] | | | + + + + + + | (no date) | Codeine | [facility] | (no reaction) | (no severity) | | [facility] | | | + + + + + + | (no date) | Levofloxacin | [facility] | (no reaction) | (no severity) | | [facility] | | + + + + + + | (no date) | Paliperidone | [facility] | (no reaction) | (no severity) | | [facility] | | + + + + + + | (no date) | Paliperidone | [facility] | (no reaction) | (no severity) | | [facility] | | + + + + + + | (no date) | paliperidone | [facility] | (no reaction) | (no severity) | | [facility] | | + + + + + + | (no date) | Levofloxacin | [facility] | (no reaction) | (no severity) | | [facility] | | + + + + + + | (no date) | Penicillin | [facility] | (no reaction) | (no severity) | | [facility] | | + + + + + + | (no date) | Amoxicillin | [facility] | (no reaction) | (no severity) | | [facility] | | + + + + + + | (no date) | Nitrofurantoin | [facility] | (no reaction) | (no severity) | | [facility] | | | + + + + + + | (no date) | nitrofurantoin | [facility] | (no reaction) | (no severity) | | [facility] | | + + + + + + | (no date) | Penicillin | [facility] | (no reaction) | (no severity) | | [facility] | | + + + + + + | (no date) | Cephalosporins | [facility] | (no reaction) | (no severity) | | [facility] | | + + + + + + | (no date) | Amoxicillin | [facility] | (no reaction) | (no severity) | | [facility] | | + + + + + + | (no date) | Levofloxacin | [facility] | (no reaction) | (no severity) | | [facility] | | + + + + + + | (no date) | levofloxacin | [facility] | (no reaction) | (no severity) | | [facility] | | + + + + + + | (no date) | Paliperidone | [facility] | (no reaction) | (no severity) | | [facility] | | + + + + + + | (no date) | Nitrofurantoin | [facility] | (no reaction) | (no severity) | | [facility] | | | + + + + + + | (no date) | Cephalosporins | [facility] | (no reaction) | (no severity) | | | | | | | + + + + + + | (no date) | codeine | [facility] | (no reaction) | (no severity) | + + + + + + | (no date) | carbamazepine | [facility] | (no reaction) | (no severity) | + + + + + + | (no date) | nitrofurantoin | [facility] | (no reaction) | (no severity) | | | | | | | + + + + + + | (no date) | ketorolac | [facility] | (no reaction) | (no severity) | + + + + + + | (no date) | levofloxacin | [facility] | (no reaction) | (no severity) | + + + + + + | (no date) | paliperidone | [facility] | (no reaction) | (no severity) | + + + + + + | (no date) | Cephalosporins | [facility] | (no reaction) | (no severity) | | [facility] | | + + + + + + | (no date) | Penicillin | [facility] | (no reaction) | (no severity) | | [facility] | | | + + + + + + | (no date) | Penicillin | [facility] | (no reaction) | (no severity) | [facility] | | | + + + + + + | (no date) | Codeine | [facility] | (no reaction) | (no severity) | | [facility] | | | + + + + + + | (no date) | Ketorolac | [facility] | (no reaction) | (no severity) | | [facility] | | | + + + + + + Encounters No information. Functional Status No information. Immunizations No information. Medications + + + + | date | description | facility | + + + + | 2022-01-14 00:00 | LURASIDONE HCL | [facility] | + + + + | 2022-01-26 00:00 | LURASIDONE HCL | [facility] | + + + + | 2022-02-04 00:00 | LURASIDONE HCL | [facility] | + + + + | 2022-02-28 00:00 | LURASIDONE HCL | [facility] | + + + + | 2022-03-04 00:00 | LURASIDONE HCL | [facility] | + + + + | 2022-03-07 00:00 | LURASIDONE HCL | [facility] | + + + + | 2022-03-31 00:00 | LURASIDONE HCL | [facility] | + + + + | 2022-04-02 00:00 | LURASIDONE HCL | [facility] | + + + + | 2022-04-13 00:00 | LURASIDONE HCL | [facility] | + + + + | 2022-04-29 00:00 | LURASIDONE HCL | [facility] | + + + + | 2022-05-13 00:00 | LURASIDONE HCL | [facility] | + + + + | 2022-05-13 00:00 | LURASIDONE HCL | [facility] | + + + + | 2022-06-04 00:00 | LURASIDONE HCL | [facility] | + + + + 2022-06-06 00:00 | LURASIDONE HCL | [facility] | + + + + | 2022-06-28 00:00 | LURASIDONE HCL | [facility] | + + + + | 2022-07-25 00:00 | LURASIDONE HCL | [facility] | + + + + | 2022-07-31 00:00 | LURASIDONE HCL | [facility] | + + + + | 2022-08-01 00:00 | LURASIDONE HCL | [facility] | + + + + | 2022-08-19 00:00 | LURASIDONE HCL | [facility] | + + + + | 2022-09-01 00:00 | LURASIDONE HCL | [facility] | + + + + | 2022-09-15 00:00 | LURASIDONE HCL | [facility] | + + + + | 2022-09-16 00:00 | LURASIDONE HCL | [facility] | + + + + | 2022-09-20 00:00 | LURASIDONE HCL | [facility] | + + + + | 2022-10-02 00:00 | LURASIDONE HCL | [facility] | + + + + | 2022-11-09 00:00 | LURASIDONE HCL | [facility] | + + + + | 2022-11-13 00:00 | LURASIDONE HCL | [facility] | + + + + | 2022-11-22 00:00 | LURASIDONE HCL | [facility] | + + + + | 2022-11-24 00:00 | LURASIDONE HCL | [facility] | + + + + | 2023-01-04 00:00 | LURASIDONE HCL | [facility] | + + + + | 2023-01-07 00:00 | LURASIDONE HCL | [facility] | + + + + | 2023-01-17 00:00 | LURASIDONE HCL | [facility] | + + + + | 2022-03-31 00:00 | LORAZEPAM | [facility] | + + + + | 2022-03-31 00:00 | LORAZEPAM | [facility] | + + + + | 2022-11-22 00:00 | ONDANSETRON | [facility] | + + + + | 2022-11-22 00:00 | ONDANSETRON | [facility] | + + + + | 2022-11-22 00:00 | ONDANSETRON | [facility] | + + + + | 2022-11-22 00:00 | ONDANSETRON | [facility] | + + + + | 2022-03-04 00:00 | OXYCODONE | [facility] | | | HCL/ACETAMINOPHEN | | + + + + | 2022-03-07 00:00 | OXYCODONE | [facility] | | | HCL/ACETAMINOPHEN | | + + + + | 2022-03-31 00:00 | OXYCODONE | [facility] | | | HCL/ACETAMINOPHEN | | + + + + | 2022-04-02 00:00 | OXYCODONE | [facility] | | | HCL/ACETAMINOPHEN | | + + + + | 2022-04-13 00:00 | OXYCODONE | [facility] | | | HCL/ACETAMINOPHEN | | + + + + | 2022-04-29 00:00 | OXYCODONE | [facility] | | | HCL/ACETAMINOPHEN | | + + + + | 2022-05-13 00:00 | OXYCODONE | [facility] | | | HCL/ACETAMINOPHEN | | + + + + | 2022-05-13 00:00 | OXYCODONE | [facility] | | | HCL/ACETAMINOPHEN | | + + + + | 2022-06-04 00:00 | OXYCODONE | [facility] | | | HCL/ACETAMINOPHEN | | + + + + | 2022-06-06 00:00 | OXYCODONE | [facility] | | | HCL/ACETAMINOPHEN | | + + + + | 2022-06-28 00:00 | OXYCODONE | [facility] | | | HCL/ACETAMINOPHEN | | + + + + | 2022-07-25 00:00 | OXYCODONE | [facility] | | | HCL/ACETAMINOPHEN | | + + + + | 2022-07-31 00:00 | OXYCODONE | [facility] | | | HCL/ACETAMINOPHEN | | + + + + | 2022-08-01 00:00 | OXYCODONE | [facility] | | | HCL/ACETAMINOPHEN | | + + + + | 2022-08-19 00:00 | OXYCODONE | [facility] | | | HCL/ACETAMINOPHEN | | + + + + | 2022-09-01 00:00 | OXYCODONE | [facility] | | | HCL/ACETAMINOPHEN | | + + + + | 2022-09-15 00:00 | OXYCODONE | [facility] | | | HCL/ACETAMINOPHEN | | + + + + | 2022-09-16 00:00 | OXYCODONE | [facility] | | | HCL/ACETAMINOPHEN | | + + + + | 2022-09-20 00:00 | OXYCODONE | [facility] | | | HCL/ACETAMINOPHEN | | + + + + | 2022-10-02 00:00 | OXYCODONE | [facility] | | | HCL/ACETAMINOPHEN | | + + + + | 2022-11-09 00:00 | OXYCODONE | [facility] | | | HCL/ACETAMINOPHEN | | + + + + | 2020-07-10 00:00 | OXYCODONE HCL | [facility] | + + + + | 2020-07-10 00:00 | OXYCODONE HCL | [facility] | + + + + | 2020-07-10 00:00 | OXYCODONE HCL | [facility] | + + + + | 2020-07-10 00:00 | OXYCODONE HCL | [facility] | + + + + | 2020-07-10 00:00 | OXYCODONE HCL | [facility] | + + + + | 2020-07-10 00:00 | OXYCODONE HCL | [facility] | + + + + | 2020-07-10 00:00 | OXYCODONE HCL | [facility] | + + + + | 2020-07-10 00:00 | OXYCODONE HCL | [facility] | + + + + | 2020-07-10 00:00 | OXYCODONE HCL | [facility] | + + + + | 2022-11-13 00:00 | OXYCODONE | [facility] | | | HCL/ACETAMINOPHEN | | + + + + | 2022-11-13 00:00 | OXYCODONE | [facility] | | | HCL/ACETAMINOPHEN | | + + + + | 2022-11-13 00:00 | OXYCODONE | [facility] | | | HCL/ACETAMINOPHEN | | + + + + | 2022-11-13 00:00 | OXYCODONE | [facility] | | | HCL/ACETAMINOPHEN | | + + + + | 2022-09-20 00:00 | OXYCODONE HCL | [facility] | + + + + | 2022-10-02 00:00 | OXYCODONE HCL | [facility] | + + + + | 2022-11-09 00:00 | OXYCODONE HCL | [facility] | + + + + | 2022-11-13 00:00 | OXYCODONE HCL | [facility] | + + + + | 2022-11-22 00:00 | OXYCODONE HCL | [facility] | + + + + | 2022-11-24 00:00 | OXYCODONE HCL | [facility] | + + + + | 2023-01-04 00:00 | OXYCODONE HCL | [facility] | + + + + | 2023-01-07 00:00 | OXYCODONE HCL | [facility] | + + + + | 2023-01-17 00:00 | OXYCODONE HCL | [facility] | + + + + | 2022-04-02 00:00 | GABAPENTIN | [facility] | + + + + | 2022-04-02 00:00 | GABAPENTIN | [facility] | + + + + | 2022-04-02 00:00 | GABAPENTIN | [facility] | + + + + | 2022-01-14 00:00 | LAMOTRIGINE | [facility] | + + + + | 2022-01-26 00:00 | LAMOTRIGINE | [facility] | + + + + | 2022-02-04 00:00 | LAMOTRIGINE | [facility] | + + + + | 2022-02-28 00:00 | LAMOTRIGINE | [facility] | + + + + | 2022-03-04 00:00 | LAMOTRIGINE | [facility] | + + + + | 2022-03-07 00:00 | LAMOTRIGINE | [facility] | + + + + | 2022-03-31 00:00 | LAMOTRIGINE | [facility] | + + + + | 2022-04-02 00:00 | LAMOTRIGINE | [facility] | + + + + | 2022-04-13 00:00 | LAMOTRIGINE | [facility] | + + + + | 2022-04-29 00:00 | LAMOTRIGINE | [facility] | + + + + | 2022-05-13 00:00 | LAMOTRIGINE | [facility] | + + + + | 2022-05-13 00:00 | LAMOTRIGINE | [facility] | + + + + | 2022-06-04 00:00 | LAMOTRIGINE | [facility] | + + + + | 2022-06-06 00:00 | LAMOTRIGINE | [facility] | + + + + | 2022-06-28 00:00 | LAMOTRIGINE | [facility] | + + + + | 2022-07-25 00:00 | LAMOTRIGINE | [facility] | + + + + | 2022-07-31 00:00 | LAMOTRIGINE | [facility] | + + + + | 2022-08-01 00:00 | LAMOTRIGINE | [facility] | + + + + | 2022-08-19 00:00 | LAMOTRIGINE | [facility] | + + + + | 2022-09-01 00:00 | LAMOTRIGINE | [facility] | + + + + | 2022-09-15 00:00 | LAMOTRIGINE | [facility] | + + + + | 2022-09-16 00:00 | LAMOTRIGINE | [facility] | + + + + | 2022-09-20 00:00 | LAMOTRIGINE | [facility] | + + + + | 2022-10-02 00:00 | LAMOTRIGINE | [facility] | + + + + | 2022-11-09 00:00 | LAMOTRIGINE | [facility] | + + + + | 2022-11-13 00:00 | LAMOTRIGINE | [facility] | + + + + | 2022-11-22 00:00 | LAMOTRIGINE | [facility] | + + + + | 2022-11-24 00:00 | LAMOTRIGINE | [facility] | + + + + | 2023-01-04 00:00 | LAMOTRIGINE | [facility] | + + + + | 2023-01-07 00:00 | LAMOTRIGINE | [facility] | + + + + | 2023-01-17 00:00 | LAMOTRIGINE | [facility] | + + + + | 2022-05-13 00:00 | METHYLPHENIDATE HCL | [facility] | + + + + | 2022-05-13 00:00 | METHYLPHENIDATE HCL | [facility] | + + + + | 2022-06-04 00:00 | METHYLPHENIDATE HCL | [facility] | + + + + | 2022-06-06 00:00 | METHYLPHENIDATE HCL | [facility] | + + + + | 2022-06-28 00:00 | METHYLPHENIDATE HCL | [facility] | + + + + | 2022-07-25 00:00 | METHYLPHENIDATE HCL | [facility] | + + + + | 2022-07-31 00:00 | METHYLPHENIDATE HCL | [facility] | + + + + | 2022-08-01 00:00 | METHYLPHENIDATE HCL | [facility] | + + + + | 2022-08-19 00:00 | METHYLPHENIDATE HCL | [facility] | + + + + | 2022-09-01 00:00 | METHYLPHENIDATE HCL | [facility] | + + + + | 2022-09-15 00:00 | METHYLPHENIDATE HCL | [facility] | + + + + | 2022-09-16 00:00 | METHYLPHENIDATE HCL | [facility] | + + + + | 2022-09-20 00:00 | METHYLPHENIDATE HCL | [facility] | + + + + | 2022-10-02 00:00 | METHYLPHENIDATE HCL | [facility] | + + + + | 2022-11-09 00:00 | METHYLPHENIDATE HCL | [facility] | + + + + | 2022-11-13 00:00 | METHYLPHENIDATE HCL | [facility] | + + + + | 2022-11-22 00:00 | METHYLPHENIDATE HCL | [facility] | + + + + | 2022-11-24 00:00 | METHYLPHENIDATE HCL | [facility] | + + + + | 2023-01-04 00:00 | METHYLPHENIDATE HCL | [facility] | + + + + | 2023-01-07 00:00 | METHYLPHENIDATE HCL | [facility] | + + + + | 2023-01-17 00:00 | METHYLPHENIDATE HCL | [facility] | + + + + | 2022-01-14 00:00 | METHYLPHENIDATE HCL | [facility] | + + + + | 2022-01-26 00:00 | METHYLPHENIDATE HCL | [facility] | + + + + | 2022-02-04 00:00 | METHYLPHENIDATE HCL | [facility] | + + + + | 2022-02-28 00:00 | METHYLPHENIDATE HCL | [facility] | + + + + | 2022-03-04 00:00 | METHYLPHENIDATE HCL | [facility] | + + + + | 2022-03-07 00:00 | METHYLPHENIDATE HCL | [facility] | + + + + | 2022-03-31 00:00 | METHYLPHENIDATE HCL | [facility] | + + + + | 2022-04-02 00:00 | METHYLPHENIDATE HCL | [facility] | + + + + | 2022-04-13 00:00 | METHYLPHENIDATE HCL | [facility] | + + + + | 2022-04-29 00:00 | METHYLPHENIDATE HCL | [facility] | + + + + | 2022-05-13 00:00 | METHYLPHENIDATE HCL | [facility] | + + + + | 2022-05-13 00:00 | METHYLPHENIDATE HCL | [facility] | + + + + | 2022-06-04 00:00 | METHYLPHENIDATE HCL | [facility] | + + + + | 2022-06-06 00:00 | METHYLPHENIDATE HCL | [facility] | + + + + | 2022-06-28 00:00 | METHYLPHENIDATE HCL | [facility] | + + + + | 2022-07-25 00:00 | METHYLPHENIDATE HCL | [facility] | + + + + | 2022-07-31 00:00 | METHYLPHENIDATE HCL | [facility] | + + + + | 2022-08-01 00:00 | METHYLPHENIDATE HCL | [facility] | + + + + | 2022-08-19 00:00 | METHYLPHENIDATE HCL | [facility] | + + + + | 2022-09-01 00:00 | METHYLPHENIDATE HCL | [facility] | + + + + | 2022-09-15 00:00 | METHYLPHENIDATE HCL | [facility] | + + + + | 2022-09-16 00:00 | METHYLPHENIDATE HCL | [facility] | + + + + | 2022-09-20 00:00 | METHYLPHENIDATE HCL | [facility] | + + + + | 2022-10-02 00:00 | METHYLPHENIDATE HCL | [facility] | + + + + | 2022-11-09 00:00 | METHYLPHENIDATE HCL | [facility] | + + + + | 2022-11-13 00:00 | METHYLPHENIDATE HCL | [facility] | + + + + | 2022-11-22 00:00 | METHYLPHENIDATE HCL | [facility] | + + + + | 2022-11-24 00:00 | METHYLPHENIDATE HCL | [facility] | + + + + | 2023-01-04 00:00 | METHYLPHENIDATE HCL | [facility] | + + + + | 2023-01-07 00:00 | METHYLPHENIDATE HCL | [facility] | + + + + | 2023-01-17 00:00 | METHYLPHENIDATE HCL | [facility] | + + + + | 2022-03-07 00:00 | PHENAZOPYRIDINE HCL | [facility] | + + + + | 2022-03-07 00:00 | PHENAZOPYRIDINE HCL | [facility] | + + + + | 2022-03-07 00:00 | PHENAZOPYRIDINE HCL | [facility] | + + + + | 2022-03-07 00:00 | PHENAZOPYRIDINE HCL | [facility] | + + + + | 2022-03-07 00:00 | PHENAZOPYRIDINE HCL | [facility] | + + + + | 2022-03-07 00:00 | PHENAZOPYRIDINE HCL | [facility] | + + + + | 2022-03-07 00:00 | PHENAZOPYRIDINE HCL | [facility] | + + + + | 2022-03-07 00:00 | PHENAZOPYRIDINE HCL | [facility] | + + + + | 2022-03-07 00:00 | PHENAZOPYRIDINE HCL | [facility] | + + + + | 2023-01-17 00:00 | PHENAZOPYRIDINE HCL | [facility] | + + + + | 2022-04-13 00:00 | clonAZEpam | [facility] | + + + + | 2022-04-29 00:00 | clonAZEpam | [facility] | + + + + | 2022-11-09 00:00 | | [facility] | | | SULFAMETHOXAZOLE/TRIMETHOPR | | | | IM | | + + + + | 2022-09-20 00:00 | ACETAMINOPHEN | [facility] | + + + + | 2022-10-02 00:00 | ACETAMINOPHEN | [facility] | + + + + | 2022-11-09 00:00 | ACETAMINOPHEN | [facility] | + + + + | 2022-11-13 00:00 | ACETAMINOPHEN | [facility] | + + + + | 2022-11-22 00:00 | ACETAMINOPHEN | [facility] | + + + + | 2022-11-24 00:00 | ACETAMINOPHEN | [facility] | + + + + | 2023-01-04 00:00 | ACETAMINOPHEN | [facility] | + + + + | 2023-01-07 00:00 | ACETAMINOPHEN | [facility] | + + + + | 2023-01-17 00:00 | ACETAMINOPHEN | [facility] | + + + + | 2022-03-04 00:00 | CIPROFLOXACIN HCL | [facility] | + + + + | 2022-11-13 00:00 | CIPROFLOXACIN HCL | [facility] | + + + + | 2022-11-13 00:00 | CIPROFLOXACIN HCL | [facility] | + + + + | 2022-11-13 00:00 | CIPROFLOXACIN HCL | [facility] | + + + + | 2022-11-13 00:00 | CIPROFLOXACIN HCL | [facility] | + + + + | 2022-06-25 00:00 | METOCLOPRAMIDE HCL | [facility] | + + + + | 2022-07-25 00:00 | | [facility] | | | SULFAMETHOXAZOLE/TRIMETHOPR | | | | IM | | + + + + | 2022-07-25 00:00 | | [facility] | | | SULFAMETHOXAZOLE/TRIMETHOPR | | | | IM | | + + + + | 2022-07-25 00:00 | | [facility] | | | SULFAMETHOXAZOLE/TRIMETHOPR | | | | IM | | + + + + | 2022-07-25 00:00 | | [facility] | | | SULFAMETHOXAZOLE/TRIMETHOPR | | | | IM | | + + + + | 2022-07-25 00:00 | | [facility] | | | SULFAMETHOXAZOLE/TRIMETHOPR | | | | IM | | + + + + | 2022-07-25 00:00 | | [facility] | | | SULFAMETHOXAZOLE/TRIMETHOPR | | | | IM | | + + + + | 2022-06-25 00:00 | PANTOPRAZOLE SODIUM | [facility] | + + + + | 2022-01-14 00:00 | MIRTAZAPINE | [facility] | + + + + | 2022-01-26 00:00 | MIRTAZAPINE | [facility] | + + + + | 2022-02-04 00:00 | MIRTAZAPINE | [facility] | + + + + | 2022-02-28 00:00 | MIRTAZAPINE | [facility] | + + + + | 2022-03-04 00:00 | MIRTAZAPINE | [facility] | + + + + | 2022-03-07 00:00 | MIRTAZAPINE | [facility] | + + + + | 2022-03-31 00:00 | MIRTAZAPINE | [facility] | + + + + | 2022-04-02 00:00 | MIRTAZAPINE | [facility] | + + + + | 2022-04-13 00:00 | MIRTAZAPINE | [facility] | + + + + | 2022-04-29 00:00 | MIRTAZAPINE | [facility] | + + + + | 2022-05-13 00:00 | MIRTAZAPINE | [facility] | + + + + | 2022-05-13 00:00 | MIRTAZAPINE | [facility] | + + + + | 2022-06-04 00:00 | MIRTAZAPINE | [facility] | + + + + | 2022-06-06 00:00 | MIRTAZAPINE | [facility] | + + + + | 2022-06-28 00:00 | MIRTAZAPINE | [facility] | + + + + | 2022-07-25 00:00 | MIRTAZAPINE | [facility] | + + + + 2022-07-31 00:00 | MIRTAZAPINE | [facility] | + + + + | 2022-08-01 00:00 | MIRTAZAPINE | [facility] | + + + + | 2022-08-19 00:00 | MIRTAZAPINE | [facility] | + + + + | 2022-09-01 00:00 | MIRTAZAPINE | [facility] | + + + + | 2022-09-15 00:00 | MIRTAZAPINE | [facility] | + + + + | 2022-09-16 00:00 | MIRTAZAPINE | [facility] | + + + + | 2022-09-20 00:00 | MIRTAZAPINE | [facility] | + + + + | 2022-10-02 00:00 | MIRTAZAPINE | [facility] | + + + + | 2022-11-09 00:00 | MIRTAZAPINE | [facility] | + + + + | 2022-11-13 00:00 | MIRTAZAPINE | [facility] | + + + + | 2022-11-22 00:00 | MIRTAZAPINE | [facility] | + + + + | 2022-11-24 00:00 | MIRTAZAPINE | [facility] | + + + + | 2023-01-04 00:00 | MIRTAZAPINE | [facility] | + + + + | 2023-01-07 00:00 | MIRTAZAPINE | [facility] | + + + + | 2023-01-17 00:00 | MIRTAZAPINE | [facility] | + + + + | 2020-07-13 00:00 | ONDANSETRON | [facility] | + + + + | 2020-07-13 00:00 | ONDANSETRON | [facility] | + + + + | 2020-07-13 00:00 | ONDANSETRON | [facility] | + + + + | 2020-07-13 00:00 | ONDANSETRON | [facility] | + + + + | 2020-07-13 00:00 | ONDANSETRON | [facility] | + + + + | 2020-07-13 00:00 | ONDANSETRON | [facility] | + + + + | 2020-07-13 00:00 | ONDANSETRON | [facility] | + + + + | 2020-07-13 00:00 | ONDANSETRON | [facility] | + + + + | 2020-07-13 00:00 | ONDANSETRON | [facility] | + + + + | 2022-04-02 00:00 | ONDANSETRON | [facility] | + + + + | 2022-04-02 00:00 | ONDANSETRON | [facility] | + + + + | 2022-04-02 00:00 | ONDANSETRON | [facility] | + + + + | 2022-04-02 00:00 | ONDANSETRON | [facility] | + + + + | 2022-04-02 00:00 | ONDANSETRON | [facility] | + + + + | 2022-04-02 00:00 | ONDANSETRON | [facility] | + + + + | 2022-04-02 00:00 | ONDANSETRON | [facility] | + + + + | 2022-04-02 00:00 | ONDANSETRON | [facility] | + + + + | 2022-04-02 00:00 | ONDANSETRON | [facility] | + + + + | 2022-11-13 00:00 | ONDANSETRON | [facility] | + + + + | 2022-11-13 00:00 | ONDANSETRON | [facility] | + + + + | 2022-11-13 00:00 | ONDANSETRON | [facility] | + + + + | 2022-11-13 00:00 | ONDANSETRON | [facility] | + + + + | 2020-07-06 00:00 | predniSONE | [facility] | + + + + | 2020-07-06 00:00 | predniSONE | [facility] | + + + + | 2020-07-06 00:00 | predniSONE | [facility] | + + + + | 2020-07-06 00:00 | predniSONE | [facility] | + + + + | 2020-07-06 00:00 | predniSONE | [facility] | + + + + | 2020-07-06 00:00 | predniSONE | [facility] | + + + + | 2020-07-06 00:00 | predniSONE | [facility] | + + + + | 2020-07-06 00:00 | predniSONE | [facility] | + + + + | 2020-07-06 00:00 | predniSONE | [facility] | + + + + | 2022-11-09 00:00 | AMOXICILLIN/POTASSIUM CLAV | [facility] | | | | | + + + + | 2022-01-14 00:00 | DULOXETINE HCL | [facility] | + + + + | 2022-01-26 00:00 | DULOXETINE HCL | [facility] | + + + + | 2022-02-04 00:00 | DULOXETINE HCL | [facility] | + + + + | 2022-02-28 00:00 | DULOXETINE HCL | [facility] | + + + + | 2022-03-04 00:00 | DULOXETINE HCL | [facility] | + + + + | 2022-03-07 00:00 | DULOXETINE HCL | [facility] | + + + + | 2022-03-31 00:00 | DULOXETINE HCL | [facility] | + + + + | 2022-04-02 00:00 | DULOXETINE HCL | [facility] | + + + + | 2022-04-13 00:00 | DULOXETINE HCL | [facility] | + + + + | 2022-04-29 00:00 | DULOXETINE HCL | [facility] | + + + + | 2022-05-13 00:00 | DULOXETINE HCL | [facility] | + + + + | 2022-05-13 00:00 | DULOXETINE HCL | [facility] | + + + + | 2022-06-04 00:00 | DULOXETINE HCL | [facility] | + + + + | 2022-06-06 00:00 | DULOXETINE HCL | [facility] | + + + + | 2022-06-28 00:00 | DULOXETINE HCL | [facility] | + + + + | 2022-07-25 00:00 | DULOXETINE HCL | [facility] | + + + + | 2022-07-31 00:00 | DULOXETINE HCL | [facility] | + + + + | 2022-08-01 00:00 | DULOXETINE HCL | [facility] | + + + + | 2022-08-19 00:00 | DULOXETINE HCL | [facility] | + + + + | 2022-09-01 00:00 | DULOXETINE HCL | [facility] | + + + + | 2022-09-15 00:00 | DULOXETINE HCL | [facility] | + + + + | 2022-09-16 00:00 | DULOXETINE HCL | [facility] | + + + + | 2022-09-20 00:00 | DULOXETINE HCL | [facility] | + + + + | 2022-10-02 00:00 | DULOXETINE HCL | [facility] | + + + + | 2022-11-09 00:00 | DULOXETINE HCL | [facility] | + + + + | 2022-11-13 00:00 | DULOXETINE HCL | [facility] | + + + + | 2022-11-22 00:00 | DULOXETINE HCL | [facility] | + + + + | 2022-11-24 00:00 | DULOXETINE HCL | [facility] | + + + + | 2023-01-04 00:00 | DULOXETINE HCL | [facility] | + + + + | 2023-01-07 00:00 | DULOXETINE HCL | [facility] | + + + + | 2023-01-17 00:00 | DULOXETINE HCL | [facility] | + + + + | 2022-05-13 00:00 | DULOXETINE HCL | [facility] | + + + + | 2022-05-13 00:00 | DULOXETINE HCL | [facility] | + + + + | 2022-06-04 00:00 | DULOXETINE HCL | [facility] | + + + + | 2022-06-06 00:00 | DULOXETINE HCL | [facility] | + + + + | 2022-06-28 00:00 | DULOXETINE HCL | [facility] | + + + + | 2022-07-25 00:00 | DULOXETINE HCL | [facility] | + + + + | 2022-07-31 00:00 | DULOXETINE HCL | [facility] | + + + + | 2022-08-01 00:00 | DULOXETINE HCL | [facility] | + + + + | 2022-09-20 00:00 | CLINDAMYCIN HCL | [facility] | + + + + | 2022-10-02 00:00 | CLINDAMYCIN HCL | [facility] | + + + + | 2022-11-09 00:00 | CLINDAMYCIN HCL | [facility] | + + + + | 2022-09-20 00:00 | Cholecalciferol (Vitamin | [facility] | | | D3) | | + + + + | 2022-10-02 00:00 | Cholecalciferol (Vitamin | [facility] | | | D3) | | + + + + | 2022-11-09 00:00 | Cholecalciferol (Vitamin | [facility] | | | D3) | | + + + + | 2022-11-13 00:00 | Cholecalciferol (Vitamin | [facility] | | | D3) | | + + + + | 2022-11-22 00:00 | Cholecalciferol (Vitamin | [facility] | | | D3) | | + + + + | 2022-11-24 00:00 | Cholecalciferol (Vitamin | [facility] | | | D3) | | + + + + | 2023-01-04 00:00 | Cholecalciferol (Vitamin | [facility] | | | D3) | | + + + + | 2023-01-07 00:00 | Cholecalciferol (Vitamin | [facility] | | | D3) | | + + + + | 2023-01-17 00:00 | Cholecalciferol (Vitamin | [facility] | | | D3) | | + + + + | 2020-07-13 00:00 | AMOXICILLIN/POTASSIUM CLAV | [facility] | | | | | + + + + | 2020-07-13 00:00 | AMOXICILLIN/POTASSIUM CLAV | [facility] | | | | | + + + + | 2020-07-13 00:00 | AMOXICILLIN/POTASSIUM CLAV | [facility] | | | | | + + + + | 2020-07-13 00:00 | AMOXICILLIN/POTASSIUM CLAV | [facility] | | | | | + + + + | 2020-07-13 00:00 | AMOXICILLIN/POTASSIUM CLAV | [facility] | | | | | + + + + | 2020-07-13 00:00 | AMOXICILLIN/POTASSIUM CLAV | [facility] | | | | | + + + + | 2020-07-13 00:00 | AMOXICILLIN/POTASSIUM CLAV | [facility] | | | | | + + + + | 2020-07-13 00:00 | AMOXICILLIN/POTASSIUM CLAV | [facility] | | | | | + + + + | 2020-07-13 00:00 | AMOXICILLIN/POTASSIUM CLAV | [facility] | | | | | + + + + | 2020-10-15 00:00 | CYCLOBENZAPRINE HCL | [facility] | + + + + | 2020-10-15 00:00 | CYCLOBENZAPRINE HCL | [facility] | + + + + | 2020-10-15 00:00 | CYCLOBENZAPRINE HCL | [facility] | + + + + | 2020-10-15 00:00 | CYCLOBENZAPRINE HCL | [facility] | + + + + | 2020-10-15 00:00 | CYCLOBENZAPRINE HCL | [facility] | + + + + | 2020-10-15 00:00 | CYCLOBENZAPRINE HCL | [facility] | + + + + | 2020-10-15 00:00 | CYCLOBENZAPRINE HCL | [facility] | + + + + | 2020-10-15 00:00 | CYCLOBENZAPRINE HCL | [facility] | + + + + | 2020-10-15 00:00 | CYCLOBENZAPRINE HCL | [facility] | + + + + | 2020-07-13 00:00 | TRAMADOL HCL | [facility] | + + + + | 2020-07-13 00:00 | TRAMADOL HCL | [facility] | + + + + | 2020-07-13 00:00 | TRAMADOL HCL | [facility] | + + + + | 2020-07-13 00:00 | TRAMADOL HCL | [facility] | + + + + | 2020-07-13 00:00 | TRAMADOL HCL | [facility] | + + + + | 2020-07-13 00:00 | TRAMADOL HCL | [facility] | + + + + | 2020-07-13 00:00 | TRAMADOL HCL | [facility] | + + + + | 2020-07-13 00:00 | TRAMADOL HCL | [facility] | + + + + | 2020-07-13 00:00 | TRAMADOL HCL | [facility] | + + + + | 2020-07-08 00:00 | | [facility] | | | SULFAMETHOXAZOLE/TRIMETHOPR | | | | IM DS | | + + + + | 2020-07-08 00:00 | | [facility] | | | SULFAMETHOXAZOLE/TRIMETHOPR | | | | IM DS | | + + + + | 2020-07-08 00:00 | | [facility] | | | SULFAMETHOXAZOLE/TRIMETHOPR | | | | IM DS | | + + + + | 2020-07-08 00:00 | | [facility] | | | SULFAMETHOXAZOLE/TRIMETHOPR | | | | IM DS | | + + + + | 2020-07-08 00:00 | | [facility] | | | SULFAMETHOXAZOLE/TRIMETHOPR | | | | IM DS | | + + + + | 2020-07-08 00:00 | | [facility] | | | SULFAMETHOXAZOLE/TRIMETHOPR | | | | IM DS | | + + + + | 2020-07-08 00:00 | | [facility] | | | SULFAMETHOXAZOLE/TRIMETHOPR | | | | IM DS | | + + + + | 2020-07-08 00:00 | | [facility] | | | SULFAMETHOXAZOLE/TRIMETHOPR | | | | IM DS | | + + + + | 2020-07-08 00:00 | | [facility] | | | SULFAMETHOXAZOLE/TRIMETHOPR | | | | IM DS | | + + + + | 2022-03-07 00:00 | | [facility] | | | SULFAMETHOXAZOLE/TRIMETHOPR | | | | IM DS | | + + + + | 2022-03-07 00:00 | | [facility] | | | SULFAMETHOXAZOLE/TRIMETHOPR | | | | IM DS | | + + + + | 2022-03-07 00:00 | | [facility] | | | SULFAMETHOXAZOLE/TRIMETHOPR | | | | IM DS | | + + + + | 2022-03-07 00:00 | | [facility] | | | SULFAMETHOXAZOLE/TRIMETHOPR | | | | IM DS | | + + + + | 2022-03-07 00:00 | | [facility] | | | SULFAMETHOXAZOLE/TRIMETHOPR | | | | IM DS | | + + + + | 2022-03-07 00:00 | | [facility] | | | SULFAMETHOXAZOLE/TRIMETHOPR | | | | IM DS | | + + + + | 2022-03-07 00:00 | | [facility] | | | SULFAMETHOXAZOLE/TRIMETHOPR | | | | IM DS | | + + + + | 2022-03-07 00:00 | | [facility] | | | SULFAMETHOXAZOLE/TRIMETHOPR | | | | IM DS | | + + + + | 2022-03-07 00:00 | | [facility] | | | SULFAMETHOXAZOLE/TRIMETHOPR | | | | IM DS | | + + + + | 2022-08-01 00:00 | | [facility] | | | SULFAMETHOXAZOLE/TRIMETHOPR | | | | IM DS | | + + + + | 2022-08-01 00:00 | | [facility] | | | SULFAMETHOXAZOLE/TRIMETHOPR | | | | IM DS | | + + + + | 2022-08-01 00:00 | | [facility] | | | SULFAMETHOXAZOLE/TRIMETHOPR | | | | IM DS | | + + + + | 2022-08-01 00:00 | | [facility] | | | SULFAMETHOXAZOLE/TRIMETHOPR | | | | IM DS | | + + + + | 2022-08-01 00:00 | | [facility] | | | SULFAMETHOXAZOLE/TRIMETHOPR | | | | IM DS | | + + + + | 2022-03-04 00:00 | ZOLPIDEM TARTRATE | [facility] | + + + + | 2022-03-07 00:00 | ZOLPIDEM TARTRATE | [facility] | + + + + | 2022-03-31 00:00 | ZOLPIDEM TARTRATE | [facility] | + + + + | 2022-04-02 00:00 | ZOLPIDEM TARTRATE | [facility] | + + + + | 2022-04-13 00:00 | ZOLPIDEM TARTRATE | [facility] | + + + + | 2022-04-29 00:00 | ZOLPIDEM TARTRATE | [facility] | + + + + | 2022-05-13 00:00 | ZOLPIDEM TARTRATE | [facility] | + + + + | 2022-05-13 00:00 | ZOLPIDEM TARTRATE | [facility] | + + + + | 2022-06-04 00:00 | ZOLPIDEM TARTRATE | [facility] | + + + + | 2022-06-06 00:00 | ZOLPIDEM TARTRATE | [facility] | + + + + | 2022-06-28 00:00 | ZOLPIDEM TARTRATE | [facility] | + + + + | 2022-07-25 00:00 | ZOLPIDEM TARTRATE | [facility] | + + + + | 2022-07-31 00:00 | ZOLPIDEM TARTRATE | [facility] | + + + + | 2022-08-01 00:00 | ZOLPIDEM TARTRATE | [facility] | + + + + | 2022-08-19 00:00 | ZOLPIDEM TARTRATE | [facility] | + + + + | 2022-09-01 00:00 | ZOLPIDEM TARTRATE | [facility] | + + + + | 2022-09-15 00:00 | ZOLPIDEM TARTRATE | [facility] | + + + + | 2022-09-16 00:00 | ZOLPIDEM TARTRATE | [facility] | + + + + | 2022-09-20 00:00 | ZOLPIDEM TARTRATE | [facility] | + + + + | 2022-10-02 00:00 | ZOLPIDEM TARTRATE | [facility] | + + + + | 2022-11-09 00:00 | ZOLPIDEM TARTRATE | [facility] | + + + + | 2022-11-13 00:00 | ZOLPIDEM TARTRATE | [facility] | + + + + | 2022-11-22 00:00 | ZOLPIDEM TARTRATE | [facility] | + + + + | 2022-11-24 00:00 | ZOLPIDEM TARTRATE | [facility] | + + + + | 2023-01-04 00:00 | ZOLPIDEM TARTRATE | [facility] | + + + + | 2023-01-07 00:00 | ZOLPIDEM TARTRATE | [facility] | + + + + | 2023-01-17 00:00 | ZOLPIDEM TARTRATE | [facility] | + + + + | 2022-03-04 00:00 | TRAZODONE HCL | [facility] | + + + + | 2022-03-07 00:00 | TRAZODONE HCL | [facility] | + + + + | 2022-03-31 00:00 | TRAZODONE HCL | [facility] | + + + + | 2022-04-02 00:00 | TRAZODONE HCL | [facility] | + + + + | 2022-04-13 00:00 | TRAZODONE HCL | [facility] | + + + + | 2022-04-29 00:00 | TRAZODONE HCL | [facility] | + + + + | 2022-05-13 00:00 | TRAZODONE HCL | [facility] | + + + + | 2022-05-13 00:00 | TRAZODONE HCL | [facility] | + + + + | 2022-06-04 00:00 | TRAZODONE HCL | [facility] | + + + + | 2022-06-06 00:00 | TRAZODONE HCL | [facility] | + + + + 2022-06-28 00:00 | TRAZODONE HCL | [facility] | + + + + | 2022-07-25 00:00 | TRAZODONE HCL | [facility] | + + + + | 2022-07-31 00:00 | TRAZODONE HCL | [facility] | + + + + | 2022-08-01 00:00 | TRAZODONE HCL | [facility] | + + + + | 2022-08-19 00:00 | TRAZODONE HCL | [facility] | + + + + | 2022-09-01 00:00 | TRAZODONE HCL | [facility] | + + + + | 2022-09-15 00:00 | TRAZODONE HCL | [facility] | + + + + | 2022-09-16 00:00 | TRAZODONE HCL | [facility] | + + + + | 2022-09-20 00:00 | TRAZODONE HCL | [facility] | + + + + | 2022-10-02 00:00 | TRAZODONE HCL | [facility] | + + + + | 2022-11-09 00:00 | TRAZODONE HCL | [facility] | + + + + | 2022-11-13 00:00 | TRAZODONE HCL | [facility] | + + + + | 2022-11-22 00:00 | TRAZODONE HCL | [facility] | + + + + | 2022-11-24 00:00 | TRAZODONE HCL | [facility] | + + + + | 2023-01-04 00:00 | TRAZODONE HCL | [facility] | + + + + | 2023-01-07 00:00 | TRAZODONE HCL | [facility] | + + + + | 2023-01-17 00:00 | TRAZODONE HCL | [facility] | + + + + | 2020-07-08 00:00 | HYDROCODONE | [facility] | | | BIT/ACETAMINOPHEN | | + + + + | 2020-07-08 00:00 | HYDROCODONE | [facility] | | | BIT/ACETAMINOPHEN | | + + + + | 2020-07-08 00:00 | HYDROCODONE | [facility] | | | BIT/ACETAMINOPHEN | | + + + + | 2020-07-08 00:00 | HYDROCODONE | [facility] | | | BIT/ACETAMINOPHEN | | + + + + | 2020-07-08 00:00 | HYDROCODONE | [facility] | | | BIT/ACETAMINOPHEN | | + + + + | 2020-07-08 00:00 | HYDROCODONE | [facility] | | | BIT/ACETAMINOPHEN | | + + + + | 2020-07-08 00:00 | HYDROCODONE | [facility] | | | BIT/ACETAMINOPHEN | | + + + + | 2020-07-08 00:00 | HYDROCODONE | [facility] | | | BIT/ACETAMINOPHEN | | + + + + | 2020-07-08 00:00 | HYDROCODONE | [facility] | | | BIT/ACETAMINOPHEN | | + + + + | 2022-11-22 00:00 | HYDROCODONE | [facility] | | | BIT/ACETAMINOPHEN | | + + + + | 2022-11-22 00:00 | HYDROCODONE | [facility] | | | BIT/ACETAMINOPHEN | | + + + + | 2022-11-22 00:00 | HYDROCODONE | [facility] | | | BIT/ACETAMINOPHEN | | + + + + | 2022-11-22 00:00 | HYDROCODONE | [facility] | | | BIT/ACETAMINOPHEN | | + + + + | 2022-01-14 00:00 | ASENAPINE MALEATE | [facility] | + + + + | 2022-01-26 00:00 | ASENAPINE MALEATE | [facility] | + + + + | 2022-02-04 00:00 | ASENAPINE MALEATE | [facility] | + + + + | 2022-02-28 00:00 | ASENAPINE MALEATE | [facility] | + + + + | 2022-03-04 00:00 | ASENAPINE MALEATE | [facility] | + + + + | 2022-03-07 00:00 | ASENAPINE MALEATE | [facility] | + + + + | 2022-03-31 00:00 | ASENAPINE MALEATE | [facility] | + + + + | 2022-04-02 00:00 | ASENAPINE MALEATE | [facility] | + + + + | 2022-04-13 00:00 | ASENAPINE MALEATE | [facility] | + + + + | 2022-04-29 00:00 | ASENAPINE MALEATE | [facility] | + + + + | 2022-05-13 00:00 | ASENAPINE MALEATE | [facility] | + + + + | 2022-05-13 00:00 | ASENAPINE MALEATE | [facility] | + + + + | 2022-06-04 00:00 | ASENAPINE MALEATE | [facility] | + + + + | 2022-06-06 00:00 | ASENAPINE MALEATE | [facility] | + + + + | 2022-06-28 00:00 | ASENAPINE MALEATE | [facility] | + + + + | 2022-07-25 00:00 | ASENAPINE MALEATE | [facility] | + + + + | 2022-07-31 00:00 | ASENAPINE MALEATE | [facility] | + + + + | 2022-08-01 00:00 | ASENAPINE MALEATE | [facility] | + + + + | 2022-08-19 00:00 | ASENAPINE MALEATE | [facility] | + + + + | 2022-09-01 00:00 | ASENAPINE MALEATE | [facility] | + + + + | 2022-09-15 00:00 | ASENAPINE MALEATE | [facility] | + + + + | 2022-09-16 00:00 | ASENAPINE MALEATE | [facility] | + + + + | 2022-09-20 00:00 | ASENAPINE MALEATE | [facility] | + + + + | 2022-10-02 00:00 | ASENAPINE MALEATE | [facility] | + + + + | 2022-11-09 00:00 | ASENAPINE MALEATE | [facility] | + + + + | 2022-11-13 00:00 | ASENAPINE MALEATE | [facility] | + + + + | 2022-11-22 00:00 | ASENAPINE MALEATE | [facility] | + + + + | 2022-11-24 00:00 | ASENAPINE MALEATE | [facility] | + + + + | 2023-01-04 00:00 | ASENAPINE MALEATE | [facility] | + + + + | 2023-01-07 00:00 | ASENAPINE MALEATE | [facility] | + + + + | 2023-01-17 00:00 | ASENAPINE MALEATE | [facility] | + + + + | 2020-07-06 00:00 | MORPHINE SULFATE | [facility] | + + + + | 2020-07-06 00:00 | MORPHINE SULFATE | [facility] | + + + + | 2020-07-06 00:00 | MORPHINE SULFATE | [facility] | + + + + | 2020-07-06 00:00 | MORPHINE SULFATE | [facility] | + + + + | 2020-07-06 00:00 | MORPHINE SULFATE | [facility] | + + + + | 2020-07-06 00:00 | MORPHINE SULFATE | [facility] | + + + + | 2020-07-06 00:00 | MORPHINE SULFATE | [facility] | + + + + | 2020-07-06 00:00 | MORPHINE SULFATE | [facility] | + + + + | 2020-07-06 00:00 | MORPHINE SULFATE | [facility] | + + + + | 2022-05-13 00:00 | PROMETHAZINE HCL | [facility] | + + + + | 2022-05-13 00:00 | PROMETHAZINE HCL | [facility] | + + + + | 2022-06-04 00:00 | PROMETHAZINE HCL | [facility] | + + + + | 2022-06-06 00:00 | PROMETHAZINE HCL | [facility] | + + + + | 2022-06-28 00:00 | PROMETHAZINE HCL | [facility] | + + + + | 2022-07-25 00:00 | PROMETHAZINE HCL | [facility] | + + + + | 2022-07-31 00:00 | PROMETHAZINE HCL | [facility] | + + + + | 2022-08-01 00:00 | PROMETHAZINE HCL | [facility] | + + + + | 2022-08-19 00:00 | PROMETHAZINE HCL | [facility] | + + + + | 2022-09-01 00:00 | PROMETHAZINE HCL | [facility] | + + + + | 2022-09-15 00:00 | PROMETHAZINE HCL | [facility] | + + + + | 2022-09-16 00:00 | PROMETHAZINE HCL | [facility] | + + + + | 2022-09-20 00:00 | PROMETHAZINE HCL | [facility] | + + + + | 2022-10-02 00:00 | PROMETHAZINE HCL | [facility] | + + + + | 2022-11-09 00:00 | PROMETHAZINE HCL | [facility] | + + + + | 2022-11-13 00:00 | PROMETHAZINE HCL | [facility] | + + + + | 2022-11-22 00:00 | PROMETHAZINE HCL | [facility] | + + + + | 2022-11-24 00:00 | PROMETHAZINE HCL | [facility] | + + + + | 2023-01-04 00:00 | PROMETHAZINE HCL | [facility] | + + + + | 2023-01-07 00:00 | PROMETHAZINE HCL | [facility] | + + + + | 2023-01-17 00:00 | PROMETHAZINE HCL | [facility] | + + + + Problems + + + + | date | description | facility | + + + + | 2020-07-06 00:00 | Sciatica associated with | [facility] | | | disorder of lumbar spine | | + + + + | 2020-07-06 00:00 | Sciatica associated with | [facility] | | | disorder of lumbar spine | | + + + + | 2020-07-06 00:00 | Sciatica associated with | [facility] | | | disorder of lumbar spine | | + + + + | 2020-07-06 00:00 | Sciatica associated with | [facility] | | | disorder of lumbar spine | | + + + + | 2020-07-06 00:00 | Sciatica associated with | [facility] | | | disorder of lumbar spine | | + + + + | 2020-07-06 00:00 | Sciatica associated with [facility] | | | disorder of lumbar spine | | + + + + | 2020-07-06 00:00 | Sciatica associated with [facility] | | | disorder of lumbar spine | | + + + + | 2020-07-06 00:00 | Sciatica associated with [facility] | | | disorder of lumbar spine | | + + + + | 2020-07-06 00:00 | Sciatica associated with | [facility] | | | disorder of lumbar spine | | + + + + | 2020-07-20 00:00 | Urinary tract infection | [facility] | + + + + | 2020-07-20 00:00 | Urinary tract infection | [facility] | + + + + | 2020-07-20 00:00 | Urinary tract infection | [facility] | + + + + | 2020-07-20 00:00 | Urinary tract infection | [facility] | + + + + | 2020-07-20 00:00 | Urinary tract infection | [facility] | + + + + | 2020-07-20 00:00 | Urinary tract infection | [facility] | + + + + | 2020-07-20 00:00 | Urinary tract infection | [facility] | + + + + | 2020-07-20 00:00 | Urinary tract infection | [facility] | + + + + | 2020-07-20 00:00 | Urinary tract infection | [facility] | + + + + | 2022-03-31 00:00 | Anxiety | [facility] | + + + + | 2022-03-31 00:00 | Anxiety | [facility] | + + + + | 2022-03-31 00:00 | Anxiety | [facility] | + + + + | 2022-03-31 00:00 | Anxiety | [facility] | + + + + | 2022-03-31 00:00 | Anxiety | [facility] | + + + + | 2022-03-31 00:00 | Anxiety | [facility] | + + + + | 2022-03-31 00:00 | Anxiety | [facility] | + + + + | 2022-03-31 00:00 | Anxiety | [facility] | + + + + | 2022-03-31 00:00 | Anxiety | [facility] | + + + + | 2022-03-31 00:00 | Grief | [facility] | + + + + | 2022-03-31 00:00 | Grief | [facility] | + + + + | 2022-03-31 00:00 | Grief | [facility] | + + + + | 2022-03-31 00:00 | Grief | [facility] | + + + + | 2022-03-31 00:00 | Grief | [facility] | + + + + | 2022-03-31 00:00 | Grief | [facility] | + + + + | 2022-03-31 00:00 | Grief | [facility] | + + + + | 2022-03-31 00:00 | Grief | [facility] | + + + + | 2022-03-31 00:00 | Grief | [facility] | + + + + | 2022-03-31 00:00 | Chest pain | [facility] | + + + + | 2022-03-31 00:00 | Chest pain | [facility] | + + + + | 2022-03-31 00:00 | Chest pain | [facility] | + + + + | 2022-03-31 00:00 | Chest pain | [facility] | + + + + | 2022-03-31 00:00 | Chest pain | [facility] | + + + + | 2022-03-31 00:00 | Chest pain | [facility] | + + + + | 2022-03-31 00:00 | Chest pain | [facility] | + + + + | 2022-03-31 00:00 | Chest pain | [facility] | + + + + | 2022-03-31 00:00 | Chest pain | [facility] | + + + + | 2022-04-02 00:00 | Chronic pain syndrome | [facility] | + + + + | 2022-04-02 00:00 | Chronic pain syndrome | [facility] | + + + + | 2022-04-02 00:00 | Chronic pain syndrome | [facility] | + + + + | 2022-04-02 00:00 | Chronic pain syndrome | [facility] | + + + + | 2022-04-02 00:00 | Chronic pain syndrome | [facility] | + + + + | 2022-04-02 00:00 | Chronic pain syndrome | [facility] | + + + + | 2022-04-02 00:00 | Chronic pain syndrome | [facility] | + + + + | 2022-04-02 00:00 | Chronic pain syndrome | [facility] | + + + + | 2022-04-02 00:00 | Chronic pain syndrome | [facility] | + + + + | 2022-04-02 00:00 | Atypical chest pain | [facility] | + + + + | 2022-04-02 00:00 | Atypical chest pain | [facility] | + + + + | 2022-04-02 00:00 | Atypical chest pain | [facility] | + + + + | 2022-04-02 00:00 | Atypical chest pain | [facility] | + + + + | 2022-04-02 00:00 | Atypical chest pain | [facility] | + + + + | 2022-04-02 00:00 | Atypical chest pain | [facility] | + + + + | 2022-04-02 00:00 | Atypical chest pain | [facility] | + + + + | 2022-04-02 00:00 | Atypical chest pain | [facility] | + + + + | 2022-04-02 00:00 | Atypical chest pain | [facility] | + + + + | 2022-04-29 00:00 | Left lower quadrant | [facility] | | | abdominal pain | | + + + + | 2022-04-29 00:00 | Left lower quadrant | [facility] | | | abdominal pain | | + + + + | 2022-04-29 00:00 | Left lower quadrant | [facility] | | | abdominal pain | | + + + + | 2022-04-29 00:00 | Left lower quadrant | [facility] | | | abdominal pain | | + + + + | 2022-04-29 00:00 | Left lower quadrant | [facility] | | | abdominal pain | | + + + + | 2022-04-29 00:00 | Left lower quadrant | [facility] | | | abdominal pain | | + + + + | 2022-04-29 00:00 | Left lower quadrant | [facility] | | | abdominal pain | | + + + + | 2022-04-29 00:00 | Left lower quadrant | [facility] | | | abdominal pain | | + + + + | 2022-04-29 00:00 | Nausea and vomiting | [facility] | + + + + | 2022-04-29 00:00 | Nausea and vomiting | [facility] | + + + + | 2022-04-29 00:00 | Nausea and vomiting | [facility] | + + + + | 2022-04-29 00:00 | Nausea and vomiting | [facility] | + + + + | 2022-04-29 00:00 | Nausea and vomiting | [facility] | + + + + | 2022-04-29 00:00 | Nausea and vomiting | [facility] | + + + + | 2022-04-29 00:00 | Nausea and vomiting | [facility] | + + + + | 2022-04-29 00:00 | Nausea and vomiting | [facility] | + + + + | 2022-04-29 00:00 | Lung nodule | [facility] | + + + + | 2022-04-29 00:00 | Lung nodule | [facility] | + + + + | 2022-04-29 00:00 | Lung nodule | [facility] | + + + + | 2022-04-29 00:00 | Lung nodule | [facility] | + + + + | 2022-04-29 00:00 | Lung nodule | [facility] | + + + + | 2022-04-29 00:00 | Lung nodule | [facility] | + + + + | 2022-04-29 00:00 | Lung nodule | [facility] | + + + + | 2022-04-29 00:00 | Lung nodule | [facility] | + + + + | 2022-05-12 00:00 | Upper respiratory tract | [facility] | | | infection | | + + + + | 2022-05-12 00:00 | Upper respiratory tract | [facility] | | | infection | | + + + + | 2022-05-12 00:00 | Upper respiratory tract | [facility] | | | infection | | + + + + | 2022-05-12 00:00 | Upper respiratory tract | [facility] | | | infection | | + + + + | 2022-05-12 00:00 | Upper respiratory tract | [facility] | | | infection | | + + + + | 2022-05-12 00:00 | Upper respiratory tract | [facility] | | | infection | | + + + + | 2022-05-12 00:00 | Upper respiratory tract | [facility] | | | infection | | + + + + | 2022-05-12 00:00 | Upper respiratory tract | [facility] | | | infection | | + + + + | 2022-06-04 00:00 | Neck sprain | [facility] | + + + + | 2022-06-04 00:00 | Neck sprain | [facility] | + + + + | 2022-06-04 00:00 | Neck sprain | [facility] | + + + + | 2022-06-04 00:00 | Neck sprain | [facility] | + + + + | 2022-06-04 00:00 | Neck sprain | [facility] | + + + + | 2022-06-04 00:00 | Neck sprain | [facility] | + + + + | 2022-06-04 00:00 | Neck sprain | [facility] | + + + + | 2022-06-04 09:39 | NICOTINE DEPENDENCE, | [facility] | | | UNSPECIFIED, UNCOMPLICATED | | + + + + | 2022-06-04 09:39 | LEFT LOWER QUADRANT PAIN | [facility] | + + + + | 2022-06-04 09:39 | SPRAIN OF JOINTS AND | [facility] | | | LIGAMENTS OF UNSP PARTS OF | | | | NE | | + + + + | 2022-06-04 09:39 | FALL SAME LEV FROM | [facility] | | | SLIP/TRIP W/O STRIKE | | | | AGAINST OB | | + + + + | 2022-06-04 09:39 | ALLERGY STATUS TO | [facility] | | | PENICILLIN | | + + + + | 2022-06-04 09:39 | ALLERGY STATUS TO OTHER | [facility] | | | ANTIBIOTIC AGENTS STATUS | | + + + + | 2022-06-04 09:39 | ALLERGY STATUS TO NARCOTIC | [facility] | | | AGENT STATUS | | + + + + | 2022-06-04 09:39 | ALLERGY STATUS TO OTH | [facility] | | | DRUG/MEDS/BIOL SUBST STATUS | | | | | | + + + + | 2022-06-04 09:39 | ARTHRODESIS STATUS | [facility] | + + + + | 2022-06-06 00:00 | Concussion | [facility] | + + + + | 2022-06-06 00:00 | Concussion | [facility] | + + + + | 2022-06-06 00:00 | Concussion | [facility] | + + + + | 2022-06-06 00:00 | Concussion | [facility] | + + + + | 2022-06-06 00:00 | Concussion | [facility] | + + + + | 2022-06-06 00:00 | Concussion | [facility] | + + + + | 2022-06-06 00:00 | Concussion | [facility] | + + + + | 2022-06-06 00:00 | Injury of head | [facility] | + + + + | 2022-06-06 00:00 | Injury of head | [facility] | + + + + | 2022-06-06 00:00 | Injury of head | [facility] | + + + + | 2022-06-06 00:00 | Injury of head | [facility] | + + + + | 2022-06-06 00:00 | Injury of head | [facility] | + + + + | 2022-06-06 00:00 | Injury of head | [facility] | + + + + | 2022-06-06 00:00 | Injury of head | [facility] | + + + + | 2022-06-06 13:10 | NICOTINE DEPENDENCE, | [facility] | | | UNSPECIFIED, UNCOMPLICATED | | + + + + | 2022-06-06 13:10 | CONCUSSION WITH LOC STATUS | [facility] | | | UNKNOWN, INITIAL ENCOUN | | + + + + | 2022-06-06 13:10 | UNSPECIFIED FALL, INITIAL | [facility] | | | ENCOUNTER | | + + + + | 2022-06-06 13:10 | 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) | [facility] | | | DRUG THERAPY | | + + + + | 2022-06-06 13:10 | ALLERGY STATUS TO | [facility] | | | PENICILLIN | | + + + + | 2022-06-06 13:10 | ALLERGY STATUS TO OTHER | [facility] | | | ANTIBIOTIC AGENTS STATUS | | + + + + | 2022-06-06 13:10 | ALLERGY STATUS TO NARCOTIC | [facility] | | | AGENT STATUS | | + + + + | 2022-06-06 13:10 | ALLERGY STATUS TO | [facility] | | | ANALGESIC AGENT STATUS | | + + + + | 2022-06-06 13:10 | ALLERGY STATUS TO OTH | [facility] | | | DRUG/MEDS/BIOL SUBST STATUS | | | | | | + + + + | 2022-06-25 00:00 | Abdominal pain | [facility] | + + + + | 2022-06-25 00:00 | Abdominal pain | [facility] | + + + + | 2022-06-25 00:00 | Abdominal pain | [facility] | + + + + | 2022-06-25 00:00 | Abdominal pain | [facility] | + + + + | 2022-06-25 00:00 | Abdominal pain | [facility] | + + + + | 2022-06-25 00:00 | Abdominal pain | [facility] | + + + + | 2022-06-25 00:00 | Abdominal pain | [facility] | + + + + | 2022-06-25 12:18 | ELEVATED WHITE BLOOD CELL | [facility] | | | COUNT, UNSPECIFIED | | + + + + | 2022-06-25 12:18 | NICOTINE DEPENDENCE, | [facility] | | | UNSPECIFIED, UNCOMPLICATED | | + + + + | 2022-06-25 12:18 | SHORTNESS OF BREATH | [facility] | + + + + | 2022-06-25 12:18 | UNSPECIFIED ABDOMINAL PAIN | [facility] | | | | | + + + + | 2022-06-25 12:18 | [facility] (CURRENT) | [facility] | | | DRUG THERAPY | | + + + + | 2022-06-25 12:18 | ALLERGY STATUS TO | [facility] | | | PENICILLIN | | + + + + | 2022-06-25 12:18 | ALLERGY STATUS TO NARCOTIC | [facility] | | | AGENT STATUS | | + + + + | 2022-06-25 12:18 | ALLERGY STATUS TO OTH | [facility] | | | DRUG/MEDS/BIOL SUBST STATUS | | | | | | + + + + | 2022-06-27 20:10 | MORBID (SEVERE) OBESITY | [facility] | | | DUE TO EXCESS CA | | + + + + | 2022-06-27 20:10 | HYPERSOMNIA, UNSPECIFIED | [facility] | + + + + | 2022-06-27 20:10 | SLEEP APNEA, UNSPECIFIED | [facility] | + + + + | 2022-06-27 20:10 | OTHER SPECIFIED COUNSELING | [facility] | | | | | + + + + | 2022-06-27 20:10 | INADEQUATE SLEEP HYGIENE | [facility] | + + + + | 2022-07-25 10:43 | NICOTINE DEPENDENCE, | [facility] | | | UNSPECIFIED, UNCOMPLICATED | | + + + + | 2022-07-25 10:43 | 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, UNSPECIFIED | | + + + + | 2022-07-25 10:43 | LEFT LOWER QUADRANT PAIN | [facility] | + + + + | 2022-07-25 10:43 | UNSPECIFIED ABDOMINAL PAIN | [facility] | | | | | + + + + | 2022-07-25 10:43 | [facility] | [facility] | | | DRUG THERAPY | | + + + + | 2022-07-25 10:43 | ALLERGY STATUS TO | [facility] | | | PENICILLIN | | + + + + | 2022-07-25 10:43 | ALLERGY STATUS TO OTHER | [facility] | | | ANTIBIOTIC AGENTS STATUS | | + + + + | 2022-07-25 10:43 | ALLERGY STATUS TO NARCOTIC | [facility] | | | AGENT STATUS | | + + + + | 2022-07-25 10:43 | ALLERGY STATUS TO | [facility] | | | ANALGESIC AGENT STATUS | | + + + + | 2022-07-25 10:43 | ALLERGY STATUS TO OTH | [facility] | | | DRUG/MEDS/BIOL SUBST STATUS | | | | | | + + + + | 2022-07-31 00:00 | Patient left without being | [facility] | | | seen | | + + + + | 2022-07-31 00:00 | Patient left without being | [facility] | | | seen | | + + + + | 2022-07-31 00:00 | Patient left without being | [facility] | | | seen | | + + + + | 2022-07-31 00:00 | Patient left without being | [facility] | | | seen | | + + + + | 2022-07-31 00:00 | Patient left without being | [facility] | | | seen | | + + + + | 2022-07-31 00:00 | Patient left without being | [facility] | | | seen | | + + + + | 2022-08-01 08:08 | NICOTINE DEPENDENCE, | [facility] | | | CIGARETTES, UNCOMPLICATED | | + + + + | 2022-08-01 08:08 | 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, UNSPECIFIED | | + + + + | 2022-08-01 08:08 | URINARY TRACT INFECTION, | [facility] | | | SITE NOT SPECIFIED | | + + + + | 2022-08-01 08:08 | RIGHT LOWER QUADRANT PAIN | [facility] | + + + + | 2022-08-01 08:08 | 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) | [facility] | | | DRUG THERAPY | | + + + + | 2022-08-01 08:08 | ALLERGY STATUS TO | [facility] | | | PENICILLIN | | + + + + | 2022-08-01 08:08 | ALLERGY STATUS TO OTHER | [facility] | | | ANTIBIOTIC AGENTS STATUS | | + + + + | 2022-08-01 08:08 | ALLERGY STATUS TO NARCOTIC | [facility] | | | AGENT STATUS | | + + + + | 2022-08-01 08:08 | ALLERGY STATUS TO | [facility] | | | ANALGESIC AGENT STATUS | | + + + + | 2022-08-01 08:08 | ALLERGY STATUS TO OTH | [facility] | | | DRUG/MEDS/BIOL SUBST STATUS | | | | | | + + + + | 2022-08-09 09:43 | MORBID (SEVERE) OBESITY | [facility] | | | DUE TO EXCESS CA | | + + + + | 2022-08-09 09:43 | HYPERSOMNIA, UNSPECIFIED | [facility] | + + + + | 2022-08-09 09:43 | OBSTRUCTIVE SLEEP APNEA | [facility] | | | (ADULT) (PEDIATRIC) | | + + + + | 2022-08-09 09:43 | IDIO SLEEP RELATED | [facility] | | | NONOBSTRUCTIVE ALVEOL | | + + + + | 2022-08-09 09:43 | OTHER SPECIFIED COUNSELING | [facility] | | | | | + + + + | 2022-08-09 09:43 | PERSONAL HISTORY OF | [facility] | | | TRAUMATIC BRAIN INJURY | | + + + + | 2022-08-19 14:20 | NICOTINE DEPENDENCE, | [facility] | | | UNSPECIFIED, UNCOMPLICATED | | + + + + | 2022-08-19 14:20 | 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, UNSPECIFIED | | + + + + | 2022-08-19 14:20 | PERIUMBILICAL PAIN | [facility] | + + + + | 2022-08-19 14:20 | [facility] | [facility] | | | DRUG THERAPY | | + + + + | 2022-08-19 14:20 | ALLERGY STATUS TO | [facility] | | | PENICILLIN | | + + + + | 2022-08-19 14:20 | ALLERGY STATUS TO OTHER | [facility] | | | ANTIBIOTIC AGENTS STATUS | | + + + + | 2022-08-19 14:20 | ALLERGY STATUS TO NARCOTIC | [facility] | | | AGENT STATUS | | + + + + | 2022-08-19 14:20 | ALLERGY STATUS TO | [facility] | | | ANALGESIC AGENT STATUS | | + + + + | 2022-08-19 14:20 | ALLERGY STATUS TO OTH | [facility] | | | DRUG/MEDS/BIOL SUBST STATUS | | | | | | + + + + | 2022-09-01 00:00 | Chronic abdominal pain | [facility] | + + + + | 2022-09-01 00:00 | Chronic abdominal pain | [facility] | + + + + | 2022-09-01 00:00 | Chronic abdominal pain | [facility] | + + + + | 2022-09-01 00:00 | Chronic abdominal pain | [facility] | + + + + | 2022-09-01 00:00 | Chronic abdominal pain | [facility] | + + + + | 2022-09-01 00:00 | Headache | [facility] | + + + + | 2022-09-01 00:00 | Headache | [facility] | + + + + | 2022-09-01 00:00 | Headache | [facility] | + + + + | 2022-09-01 00:00 | Headache | [facility] | + + + + | 2022-09-01 00:00 | Headache | [facility] | + + + + | 2022-09-01 10:40 | HYPERSOMNIA, UNSPECIFIED | [facility] | + + + + | 2022-09-01 10:40 | OBSTRUCTIVE SLEEP APNEA | [facility] | | | (ADULT) (PEDIATRIC) | | + + + + | 2022-09-01 10:40 | IDIO SLEEP RELATED | [facility] | | | NONOBSTRUCTIVE ALVEOLAR | | | | HYPOVEN | | + + + + | 2022-09-01 10:40 | OTHER SPECIFIED COUNSELING | [facility] | | | | | + + + + | 2022-09-01 14:12 | NICOTINE DEPENDENCE, | [facility] | | | UNSPECIFIED, UNCOMPLICATED | | + + + + | 2022-09-01 14:12 | 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, UNSPECIFIED | | + + + + | 2022-09-01 14:12 | UNSPECIFIED ABDOMINAL PAIN | [facility] | | | | | + + + + | 2022-09-01 14:12 | 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) | [facility] | | | DRUG THERAPY | | + + + + | 2022-09-01 14:12 | ALLERGY STATUS TO | [facility] | | | PENICILLIN | | + + + + | 2022-09-01 14:12 | ALLERGY STATUS TO OTHER | [facility] | | | ANTIBIOTIC AGENTS STATUS | | + + + + | 2022-09-01 14:12 | ALLERGY STATUS TO NARCOTIC | [facility] | | | AGENT STATUS | | + + + + | 2022-09-01 14:12 | ALLERGY STATUS TO | [facility] | | | ANALGESIC AGENT STATUS | | + + + + | 2022-09-01 14:12 | ALLERGY STATUS TO OTH | [facility] | | | DRUG/MEDS/BIOL SUBST STATUS | | | | | | + + + + | 2022-09-09 19:22 | HYPERSOMNIA, UNSPECIFIED | [facility] | + + + + | 2022-09-09 19:22 | OBSTRUCTIVE SLEEP APNEA | [facility] | | | (ADULT) (PEDIATRIC) | | + + + + | 2022-09-12 08:51 | TYPE 2 DIABETES MELLITUS | [facility] | | | WITHOUT COMPLICATIONS | | + + + + | 2022-09-12 08:51 | OBESITY, UNSPECIFIED | [facility] | + + + + | 2022-09-12 08:51 | Essential (primary) | [facility] | | | hypertension | | + + + + | 2022-09-12 08:51 | OTHER AND UNSP VENTRAL | [facility] | | | HERNIA WITH OBSTRUCTION, W/ | | | | | | + + + + | 2022-09-12 08:51 | ENCOUNTER FOR | [facility] | | | PREPROCEDURAL LABORATORY | | | | EXAMINATION | | + + + + | 2022-09-15 08:51 | NICOTINE DEPENDENCE, | [facility] | | | UNSPECIFIED, UNCOMPLICATED | | + + + + | 2022-09-15 08:51 | UNSPECIFIED ABDOMINAL PAIN | [facility] | | | | | + + + + | 2022-09-15 08:51 | 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) | [facility] | | | DRUG THERAPY | | + + + + | 2022-09-15 08:51 | ALLERGY STATUS TO | [facility] | | | PENICILLIN | | + + + + | 2022-09-15 08:51 | ALLERGY STATUS TO OTHER | [facility] | | | ANTIBIOTIC AGENTS STATUS | | + + + + | 2022-09-15 08:51 | ALLERGY STATUS TO NARCOTIC | [facility] | | | AGENT STATUS | | + + + + | 2022-09-15 08:51 | ALLERGY STATUS TO OTH | [facility] | | | DRUG/MEDS/BIOL SUBST STATUS | | | | | | + + + + | 2022-09-16 11:56 | NICOTINE DEPENDENCE, | [facility] | | | UNSPECIFIED, UNCOMPLICATED | | + + + + | 2022-09-16 11:56 | VENTRAL HERNIA WITHOUT | [facility] | | | OBSTRUCTION OR GANGRENE | | + + + + | 2022-09-16 11:56 | UNSPECIFIED ABDOMINAL PAIN | [facility] | | | | | + + + + | 2022-09-16 11:56 | OTHER [facility] (CURRENT) | [facility] | | | DRUG THERAPY | | + + + + | 2022-09-16 11:56 | ALLERGY STATUS TO | [facility] | | | PENICILLIN | | + + + + | 2022-09-16 11:56 | ALLERGY STATUS TO OTHER | [facility] | | | ANTIBIOTIC AGENTS STATUS | | + + + + | 2022-09-16 11:56 | ALLERGY STATUS TO NARCOTIC | [facility] | | | AGENT STATUS | | + + + + | 2022-09-16 11:56 | ALLERGY STATUS TO OTH | [facility] | | | DRUG/MEDS/BIOL SUBST STATUS | | | | | | + + + + | 2022-09-20 08:30 | TYPE 2 DIABETES MELLITUS | [facility] | | | WITHOUT COMPLIC | | + + + + | 2022-09-20 08:30 | OBESITY, UNSPECIFIED | [facility] | + + + + | 2022-09-20 08:30 | NICOTINE DEPENDENCE, | [facility] | | | UNSPECIFIED, UNCOMP | | + + + + | 2022-09-20 08:30 | OBSTRUCTIVE SLEEP APNEA | [facility] | | | (ADULT) (PEDIATR | | + + + + | 2022-09-20 08:30 | Essential (primary) | [facility] | | | hypertension | | + + + + | 2022-09-20 08:30 | UMBILICAL HERNIA WITH | [facility] | | | OBSTRUCTION, WITHOUT | | | | GANGREN | | + + + + | 2022-09-20 08:30 | INCISIONAL HERNIA WITH | [facility] | | | OBSTRUCTION, WITH | | + + + + | 2022-09-20 08:30 | OTHER AND UNSP VENTRAL | [facility] | | | HERNIA WITH OBSTRUCTION, | | | | W/O GANGRENE | | + + + + | 2022-09-20 08:30 | DVRTCLOS OF INTEST, PART | [facility] | | | UNSP, W/O PERF | | + + + + | 2022-09-20 08:30 | FOLLICULAR CYST OF THE | [facility] | | | SKIN AND SUBCUTANEOUS TISSU | | | | | | + + + + | 2022-09-20 08:30 | OTHER [facility] (CURRENT) | [facility] | | | DRUG THERAPY | | + + + + | 2022-09-20 08:30 | ALLERGY STATUS TO | [facility] | | | PENICILLIN | | + + + + | 2022-09-20 08:30 | ALLERGY STATUS TO OTHER | [facility] | | | ANTIBIOTIC AGENTS STATUS | | + + + + | 2022-09-20 08:30 | ALLERGY STATUS TO OTH | [facility] | | | DRUG/MEDS/BIOL SUBST STATUS | | | | | | + + + + | 2022-10-02 17:30 | NICOTINE DEPENDENCE, | [facility] | | | UNSPECIFIED, UNCOMPLICATED | | + + + + | 2022-10-02 17:30 | ANXIETY DISORDER, | [facility] | | | UNSPECIFIED | | + + + + | 2022-10-02 17:30 | 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) | [facility] | | | DRUG THERAPY | | + + + + | 2022-10-02 17:30 | ALLERGY STATUS TO | [facility] | | | PENICILLIN | | + + + + | 2022-10-02 17:30 | ALLERGY STATUS TO NARCOTIC | [facility] | | | AGENT STATUS | | + + + + | 2022-10-02 17:30 | ALLERGY STATUS TO OTH | [facility] | | | DRUG/MEDS/BIOL SUBST STATUS | | | | | | + + + + | 2022-11-09 12:39 | NICOTINE DEPENDENCE, | [facility] | | | UNSPECIFIED, UNCOMPLICATED | | + + + + | 2022-11-09 12:39 | URINARY TRACT INFECTION, | [facility] | | | SITE NOT SPECIFIED | | + + + + | 2022-11-09 12:39 | UNSPECIFIED ABDOMINAL PAIN | [facility] | | | | | + + + + | 2022-11-09 12:39 | ALLERGY STATUS TO | [facility] | | | PENICILLIN | | + + + + | 2022-11-09 12:39 | ALLERGY STATUS TO OTHER | [facility] | | | ANTIBIOTIC AGENTS STATUS | | + + + + | 2022-11-09 12:39 | ALLERGY STATUS TO NARCOTIC | [facility] | | | AGENT STATUS | | + + + + | 2022-11-09 12:39 | ALLERGY STATUS TO | [facility] | | | ANALGESIC AGENT STATUS | | + + + + | 2022-11-09 12:39 | ALLERGY STATUS TO OTH | [facility] | | | DRUG/MEDS/BIOL SUBST STATUS | | | | | | + + + + | 2022-11-13 13:19 | NICOTINE DEPENDENCE, | [facility] | | | UNSPECIFIED, UNCOMPLICATED | | + + + + | 2022-11-13 13:19 | URINARY TRACT INFECTION, | [facility] | | | SITE NOT SPECIFIED | | + + + + | 2022-11-13 13:19 | UNSPECIFIED ABDOMINAL PAIN | [facility] | | | | | + + + + | 2022-11-13 13:19 | OTHER [facility] (CURRENT) | [facility] | | | DRUG THERAPY | | + + + + | 2022-11-13 13:19 | ALLERGY STATUS TO NARCOTIC | [facility] | | | AGENT STATUS | | + + + + | 2022-11-13 13:19 | ALLERGY STATUS TO OTH | [facility] | | | DRUG/MEDS/BIOL SUBST STATUS | | | | | | + + + + | 2022-11-22 00:00 | Pyelonephritis | [facility] | + + + + | 2022-11-22 00:00 | Pyelonephritis | [facility] | + + + + | 2022-11-22 00:00 | Pyelonephritis | [facility] | + + + + | 2022-11-22 00:00 | Pyelonephritis | [facility] | + + + + | 2022-11-22 11:47 | NICOTINE DEPENDENCE, | [facility] | | | UNSPECIFIED, UNCOMPLICATED | | + + + + | 2022-11-22 11:47 | SCHIZOAFFECTIVE DISORDER, | [facility] | | | UNSPECIFIED | | + + + + | 2022-11-22 11:47 | BIPOLAR DISORDER, | [facility] | | | UNSPECIFIED | | + + + + | 2022-11-22 11:47 | 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, not specified as | | | | acute or chronic | | + + + + | 2022-11-22 11:47 | UNSPECIFIED ABDOMINAL PAIN | [facility] | | | | | + + + + | 2022-11-22 11:47 | OTHER [facility] (CURRENT) | [facility] | | | DRUG THERAPY | | + + + + | 2022-11-22 11:47 | ALLERGY STATUS TO OTHER | [facility] | | | ANTIBIOTIC AGENTS STATUS | | + + + + | 2022-11-22 11:47 | ALLERGY STATUS TO NARCOTIC | [facility] | | | AGENT STATUS | | + + + + | 2022-11-22 11:47 | ALLERGY STATUS TO | [facility] | | | ANALGESIC AGENT STATUS | | + + + + | 2022-11-22 11:47 | ALLERGY STATUS TO OTH | [facility] | | | DRUG/MEDS/BIOL SUBST STATUS | | | | | | + + + + | 2022-11-22 11:47 | ACQUIRED ABSENCE OF KIDNEY | [facility] | | | | | + + + + | 2022-11-23 09:54 | 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, not specified as | | | | acute or chronic | | + + + + | 2022-11-23 19:38 | NICOTINE DEPENDENCE, | [facility] | | | UNSPECIFIED, UNCOMPLICATED | | + + + + | 2022-11-23 19:38 | UNSPECIFIED ABDOMINAL PAIN | [facility] | | | | | + + + + | 2022-11-23 19:38 | ALLERGY STATUS TO OTHER | [facility] | | | ANTIBIOTIC AGENTS STATUS | | + + + + | 2022-11-23 19:38 | ALLERGY STATUS TO NARCOTIC | [facility] | | | AGENT STATUS | | + + + + | 2022-11-23 19:38 | ALLERGY STATUS TO | [facility] | | | ANALGESIC AGENT STATUS | | + + + + | 2022-11-23 19:38 | ALLERGY STATUS TO OTH | [facility] | | | DRUG/MEDS/BIOL SUBST STATUS | | | | | | + + + + | 2022-11-24 00:00 | Flank pain | [facility] | + + + + | 2022-11-24 00:00 | Flank pain | [facility] | + + + + | 2022-11-24 00:00 | Flank pain | [facility] | + + + + | 2022-11-24 10:14 | 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, not specified as | | | | acute or chronic | | + + + + | 2022-11-25 10:10 | 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, not specified as | | | | acute or chronic | | + + + + | 2022-11-26 09:57 | 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, not specified as | | | | acute or chronic | | + + + + | 2022-11-27 09:46 | 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, not specified as | | | | acute or chronic | | + + + + | 2023-01-04 17:47 | NICOTINE DEPENDENCE, | [facility] | | | UNSPECIFIED, UNCOMPLICATED | | + + + + | 2023-01-04 17:47 | LEFT LOWER QUADRANT PAIN | [facility] | + + + + | 2023-01-04 17:47 | UNSPECIFIED ABDOMINAL PAIN | [facility] | | | | | + + + + | 2023-01-04 17:47 | ALLERGY STATUS TO OTHER | [facility] | | | ANTIBIOTIC AGENTS STATUS | | + + + + | 2023-01-04 17:47 | ALLERGY STATUS TO NARCOTIC | [facility] | | | AGENT STATUS | | + + + + | 2023-01-04 17:47 | ALLERGY STATUS TO | [facility] | | | ANALGESIC AGENT STATUS | | + + + + | 2023-01-04 17:47 | ALLERGY STATUS TO OTH | [facility] | | | DRUG/MEDS/BIOL SUBST STATUS | | | | | | + + + + | 2023-01-07 00:00 | Traumatic injury of head | [facility] | + + + + | 2023-01-07 00:00 | Strain of neck muscle | [facility] | + + + + | 2023-01-07 15:00 | NICOTINE DEPENDENCE, | [facility] | | | UNSPECIFIED, UNCOMPLICATED | | + + + + | 2023-01-07 15:00 | PAIN IN LEFT HAND | [facility] | + + + + | 2023-01-07 15:00 | UNSPECIFIED ABDOMINAL PAIN | [facility] | | | | | + + + + | 2023-01-07 15:00 | UNSPECIFIED INJURY OF | [facility] | | | HEAD, INITIAL ENCOUNTER | | + + + + | 2023-01-07 15:00 | STRAIN OF MUSCLE, FASCIA | [facility] | | | AND TENDON AT NECK LEVEL, | | + + + + | 2023-01-07 15:00 | FALL ON SAME LEVEL, | [facility] | | | UNSPECIFIED, INITIAL | | | | ENCOUNTER | | + + + + | 2023-01-07 15:00 | [facility] (CURRENT) | [facility] | | | DRUG THERAPY | | + + + + | 2023-01-07 15:00 | ALLERGY STATUS TO OTHER | [facility] | | | ANTIBIOTIC AGENTS STATUS | | + + + + | 2023-01-07 15:00 | ALLERGY STATUS TO NARCOTIC | [facility] | | | AGENT STATUS | | + + + + | 2023-01-07 15:00 | ALLERGY STATUS TO OTH | [facility] | | | DRUG/MEDS/BIOL SUBST STATUS | | | | | | + + + + | 2023-01-17 00:00 | Acute bronchitis | [facility] | + + + + | 2023-01-17 09:21 | NICOTINE DEPENDENCE, | [facility] | | | UNSPECIFIED, UNCOMPLICATED | | + + + + | 2023-01-17 09:21 | ACUTE BRONCHITIS, | [facility] | | | UNSPECIFIED | | + + + + | 2023-01-17 09:21 | COUGH, UNSPECIFIED | [facility] | + + + + | 2023-01-17 09:21 | BACTERIURIA | [facility] | + + + + | 2023-01-17 09:21 | [facility] (CURRENT) | [facility] | | | DRUG THERAPY | | + + + + | 2023-01-17 09:21 | ALLERGY STATUS TO | [facility] | | | PENICILLIN | | + + + + | 2023-01-17 09:21 | ALLERGY STATUS TO NARCOTIC | [facility] | | | AGENT STATUS | | + + + + | 2023-01-17 09:21 | ALLERGY STATUS TO OTH | [facility] | | | DRUG/MEDS/BIOL SUBST STATUS | | | | | | + + + + Procedures + + + + | date | description | facility | + + + + | 2022-09-20 00:00 | RPR AA HRN 1ST < 3 | [facility] | | | NCR/STRN | | + + + + Results/Labs +--------+--------+ +---------+--------+---------+ | test | date | facility | value | unit | notes | +--------+--------+ +---------+--------+---------+ + + | Result panel 1 | + + + + + +--------+ + + | | 2022-01-09 | [facility] | 13.8 | (missing) | (missing) | | (unavailable | 15:44 [facility] | | | + + + +--------+ + + + + | Result panel 2 | + + + + + +--------+ + + | | 2022-01-09 | [facility] | 5.24 | (missing) | (missing) | | (unavailable | 15:44 [facility] | | | | + + + +--------+ + + + + | Result panel 3 | + + + + + +--------+ + + | | 2022-01-09 | [facility] | 15.9 | (missing) | (missing) | | (unavailable | 15:44 [facility] | | | | + + + +--------+ + + + + | Result panel 4 | + + + + + +--------+ + + | | 2022-01-09 | [facility] | 47.8 | (missing) | (missing) | | (unavailable | 15:44 [facility] | | | | + + + +--------+ + + + + | Result panel 5 | + + + + + +--------+ + + | | 2022-01-09 | [facility] | 91.2 | (missing) | (missing) | | (unavailable | 15:44 [facility] | | | | + + + +--------+ + + + + | Result panel 6 | + + + + + +--------+ + + | | 2022-01-09 | [facility] | 30.4 | (missing) | (missing) | | (unavailable | 15:44 [facility] | | | | + + + +--------+ + + + + | Result panel 7 | + + + + + +--------+ + + | | 2022-01-09 | [facility] | 33.3 | (missing) | (missing) | | (unavailable | 15:44 [facility] | | | | + + + +--------+ + + + + | Result panel 8 | + + + + + +--------+ + + | | 2022-01-09 | [facility] | 14.9 | (missing) | (missing) | | (unavailable | 15:44 [facility] | | | + + + +--------+ + + + + | Result panel 9 | + + + + + +-------+ + + | | 2022-01-09 | [facility] | 358 | (missing) | (missing) | | (unavailable | 15:44 [facility] | | | + + + +-------+ + + + + | Result panel 10 | + + + + + +--------+ + + | | 2022-01-09 | [facility] | 61.4 | (missing) | (missing) | | (unavailable | 15:44 [facility] | | | | + + + +--------+ + + + + | Result panel 11 | + + + + + +--------+ + + | | 2022-01-09 | [facility] | 29.7 | (missing) | (missing) | | (unavailable | 15:44 [facility] | | | | + + + +--------+ + + + + | Result panel 12 | + + + + + +-------+ + + | | 2022-01-09 | [facility] | 4.4 | (missing) | (missing) | | (unavailable | 15:44 [facility] | | | | + + + +-------+ + + + + | Result panel 13 | + + + + + +-------+ + + | | 2022-01-09 | [facility] | 3.1 | (missing) | (missing) | | (unavailable | 15:44 [facility] | | | | + + + +-------+ + + + + | Result panel 14 | + + + + + +-------+ + + | | 2022-01-09 | [facility] | 1.4 | (missing) | (missing) | | (unavailable | 15:44 [facility] | | | | + + + +-------+ + + + + | Result panel 15 | + + + + + +-------+---------+ + | | 2022-01-09 | [facility] | 130 | mg/dL | (missing) | | (unavailable | 15:44 [facility] | | | | + + + +-------+---------+ + + + | Result panel 16 | + + + + + +------+---------+ + | | 2022-01-09 | [facility] | 15 | mg/dL | (missing) | | (unavailable | 15:44 [facility] | | | | + + + +------+---------+ + + + | Result panel 17 | + + + + + +--------+---------+ + | | 2022-01-09 | [facility] | 1.09 | mg/dL | (missing) | | (unavailable | 15:44 [facility] | | | | + + + +--------+---------+ + + + | Result panel 18 | + + + + + +------+ + + | | 2022-01-09 | [facility] | 62 | (missing) | (missing) | | (unavailable | 15:44 [facility] | | | + + + +------+ + + + + | Result panel 19 | + + + + + +---------+ + + | | 2022-01-09 | [facility] | 13.76 | (missing) | (missing) | | (unavailable | 15:44 [facility] | | | | + + + +---------+ + + + + | Result panel 20 | + + + + + +-------+ + + | | 2022-01-09 | [facility] | 137 | (missing) | (missing) | | (unavailable | 15:44 [facility] | | | | + + + +-------+ + + + + | Result panel 21 | + + + + + +-------+ + + | | 2022-01-09 | [facility] | 4.0 | (missing) | (missing) | | (unavailable | 15:44 [facility] | | | | + + + +-------+ + + + + | Result panel 22 | + + + + + +------+ + + | | 2022-01-09 | [facility] | 99 | (missing) | (missing) | | (unavailable | 15:44 [facility] | | | | + + + +------+ + + + + | Result panel 23 | + + + + + +------+ + + | | 2022-01-09 | [facility] | 28 | (missing) | (missing) | | (unavailable | 15:44 [facility] | | | | + + + +------+ + + + + | Result panel 24 | + + + + + +--------+ + + | | 2022-01-09 | [facility] | 14.0 | (missing) | (missing) | | (unavailable | 15:44 [facility] | | | | + + + +--------+ + + + + | Result panel 25 | + + + + + +-------+---------+ + | | 2022-01-09 | [facility] | 9.2 | mg/dL | (missing) | | (unavailable | 15:44 [facility] | | | | + + + +-------+---------+ + + + | Result panel 26 | + + + + + +-------+ + + | | 2022-01-09 | [facility] | 7.5 | (missing) | (missing) | | (unavailable | 15:44 [facility] | | | | + + + +-------+ + + + + | Result panel 27 | + + + + + +-------+ + + | | 2022-01-09 | [facility] | 3.7 | (missing) | (missing) | | (unavailable | 15:44 [facility] | | | | + + + +-------+ + + + + | Result panel 28 | + + + + + +-------+ + + | | 2022-01-09 | [facility] | 3.8 | (missing) | (missing) | | (unavailable | 15:44 [facility] | | | | + + + +-------+ + + + + | Result panel 29 | + + + + + +--------+ + + | | 2022-01-09 | [facility] | 0.97 | (missing) | (missing) | | (unavailable | 15:44 [facility] | | | | + + + +--------+ + + + + | Result panel 30 | + + + + + +-------+ + + | | 2022-01-09 | [facility] | 0.3 | (missing) | (missing) | | (unavailable | 15:44 [facility] | | | | + + + +-------+ + + + + | Result panel 31 | + + + + + +------+ + + | | 2022-01-09 | [facility] | 38 | (missing) | (missing) | | (unavailable | 15:44 [facility] | | | | + + + +------+ + + + + | Result panel 32 | + + + + + +------+ + + | | 2022-01-09 | [facility] | 52 | (missing) | (missing) | | (unavailable | 15:44 [facility] | | | | + + + +------+ + + + + | Result panel 33 | + + + + + +-------+ + + | | 2022-01-09 | [facility] | 114 | (missing) | (missing) | | (unavailable | 15:44 [facility] | | | | + + + +-------+ + + + + | Result panel 34 | + + + + + +------+ + + | | 2022-01-09 | [facility] | 81 | (missing) | (missing) | | (unavailable | 15:44 [facility] | | | | + + + +------+ + + + + | Result panel 35 | + + + + + +--------+ + + | | 2022-01-23 | [facility] | 10.7 | (missing) | (missing) | | (unavailable | 11:00 [facility] | | | | + + + +--------+ + + + + | Result panel 36 | + + + + + +--------+ + + | | 2022-01-23 | [facility] | 5.22 | (missing) | (missing) | | (unavailable | 11:00 [facility] | | | | + + + +--------+ + + + + | Result panel 37 | + + + + + +--------+ + + | | 2022-01-23 | [facility] | 16.0 | (missing) | (missing) | | (unavailable | 11:00 [facility] | | | | + + + +--------+ + + + + | Result panel 38 | + + + + + +--------+ + + | | 2022-01-23 | [facility] | 48.5 | (missing) | (missing) | | (unavailable | 11:00 [facility] | | | | + + + +--------+ + + + + | Result panel 39 | + + + + + +--------+ + + | | 2022-01-23 | [facility] | 93.0 | (missing) | (missing) | | (unavailable | 11:00 [facility] | | | | + + + +--------+ + + + + | Result panel 40 | + + + + + +--------+ + + | | 2022-01-23 | [facility] | 30.7 | (missing) | (missing) | | (unavailable | 11:00 [facility] | | | + + + +--------+ + + + + | Result panel 41 | + + + + + +--------+ + + | | 2022-01-23 | [facility] | 33.0 | (missing) | (missing) | | (unavailable | 11:00 [facility] | | | + + + +--------+ + + + + | Result panel 42 | + + + + + +--------+ + + | | 2022-01-23 | [facility] | 15.0 | (missing) | (missing) | | (unavailable | 11:00 [facility] | | | + + + +--------+ + + + + | Result panel 43 | + + + + + +-------+ + + | | 2022-01-23 | [facility] | 290 | (missing) | (missing) | | (unavailable | 11:00 [facility] | | | + + + +-------+ + + + + | Result panel 44 | + + + + + +--------+ + + | | 2022-01-23 | [facility] | 64.0 | (missing) | (missing) | | (unavailable | 11:00 [facility] | | | | + + + +--------+ + + + + | Result panel 45 | + + + + + +--------+ + + | | 2022-01-23 | [facility] | 27.8 | (missing) | (missing) | | (unavailable | 11:00 [facility] | | | + + + +--------+ + + + + | Result panel 46 | + + + + + +-------+ + + | | 2022-01-23 | [facility] | 4.7 | (missing) | (missing) | | (unavailable | 11:00 [facility] | | | + + + +-------+ + + + + | Result panel 47 | + + + + + +-------+ + + | | 2022-01-23 | [facility] | 2.6 | (missing) | (missing) | | (unavailable | 11:00 [facility] | | | + + + +-------+ + + + + | Result panel 48 | + + + + + +-------+ + + | | 2022-01-23 | [facility] | 0.9 | (missing) | (missing) | | (unavailable | 11:00 [facility] | | | + + + +-------+ + + + + | Result panel 49 | + + + + + +-------+---------+ + | | 2022-01-23 | [facility] | 192 | mg/dL | (missing) | | (unavailable | 11:00 [facility] | | | | + + + +-------+---------+ + + + | Result panel 50 | + + + + + +------+---------+ + | | 2022-01-23 | [facility] | 15 | mg/dL | (missing) | | (unavailable | 11:00 [facility] | | | | + + + +------+---------+ + + + | Result panel 51 | + + + + + +--------+---------+ + | | 2022-01-23 | [facility] | 1.03 | mg/dL | (missing) | | (unavailable | 11:00 | [facility] | | | | + + + +--------+---------+ + + + | Result panel 52 | + + + + + +------+ + + | | 2022-01-23 | [facility] | 66 | (missing) | (missing) | | (unavailable | 11:00 [facility] | | | | + + + +------+ + + + + | Result panel 53 | + + + + + +---------+ + + | | 2022-01-23 | [facility] | 14.56 | (missing) | (missing) | | (unavailable | 11:00 | [facility] | | | | + + + +---------+ + + + + | Result panel 54 | + + + + + +-------+ + + | | 2022-01-23 | [facility] | 138 | (missing) | (missing) | | (unavailable | 11:00 [facility] | | | | + + + +-------+ + + + + | Result panel 55 | + + + + + +-------+ + + | | 2022-01-23 | [facility] | 4.1 | (missing) | (missing) | | (unavailable | 11:00 [facility] | | | | + + + +-------+ + + + + | Result panel 56 | + + + + + +-------+ + + | | 2022-01-23 | [facility] | 103 | (missing) | (missing) | | (unavailable | 11:00 [facility] | | | | + + + +-------+ + + + + | Result panel 57 | + + + + + +------+ + + | | 2022-01-23 | [facility] | 25 | (missing) | (missing) | | (unavailable | 11:00 [facility] | | | | + + + +------+ + + + + | Result panel 58 | + + + + + +--------+ + + | | 2022-01-23 | [facility] | 14.1 | (missing) | (missing) | | (unavailable | 11:00 [facility] | | | | + + + +--------+ + + + + | Result panel 59 | + + + + + +-------+---------+ + | | 2022-01-23 | [facility] | 9.2 | mg/dL | (missing) | | (unavailable | 11:00 [facility] | | | | + + + +-------+---------+ + + + | Result panel 60 | + + + + + +-------+ + + | | 2022-01-23 | [facility] | 7.4 | (missing) | (missing) | | (unavailable | 11:00 [facility] | | | | + + + +-------+ + + + + | Result panel 61 | + + + + + +-------+ + + | | 2022-01-23 | [facility] | 3.4 | (missing) | (missing) | | (unavailable | 11:00 [facility] | | | | + + + +-------+ + + + + | Result panel 62 | + + + + + +-------+ + + | | 2022-01-23 | [facility] | 4.0 | (missing) | (missing) | | (unavailable | 11:00 [facility] | | | | + + + +-------+ + + + + | Result panel 63 | + + + + + +--------+ + + | | 2022-01-23 | [facility] | 0.85 | (missing) | (missing) | | (unavailable | 11:00 [facility] | | | | + + + +--------+ + + + + | Result panel 64 | + + + + + +-------+ + + | | 2022-01-23 | [facility] | 0.3 | (missing) | (missing) | | (unavailable | 11:00 [facility] | | | | + + + +-------+ + + + + | Result panel 65 | + + + + + +------+ + + | | 2022-01-23 | [facility] | 39 | (missing) | (missing) | | (unavailable | 11:00 [facility] | | | | + + + +------+ + + + + | Result panel 66 | + + + + + +------+ + + | | 2022-01-23 | [facility] | 66 | (missing) | (missing) | | (unavailable | 11:00 [facility] | | | | + + + +------+ + + + + | Result panel 67 | + + + + + +-------+ + + | | 2022-01-23 | [facility] | 116 | (missing) | (missing) | | (unavailable | 11:00 | [facility] | | | | + + + +-------+ + + + + | Result panel 68 | + + + + + +------+ + + | | 2022-01-23 | [facility] | 89 | (missing) | (missing) | | (unavailable | 11:00 [facility] | | | | + + + +------+ + + + + | Result panel 69 | + + + + + +--------+ + + | | 2022-01-23 | [facility] | 10.7 | (missing) | (missing) | | (unavailable | 11:00 [facility] | | | | + + + +--------+ + + + + | Result panel 70 | + + + + + +--------+ + + | | 2022-01-23 | [facility] | 5.22 | (missing) | (missing) | | (unavailable | 11:00 | [facility] | | | | + + + +--------+ + + + + | Result panel 71 | + + + + + +--------+ + + | | 2022-01-23 | [facility] | 16.0 | (missing) | (missing) | | (unavailable | 11:00 | [facility] | | | | + + + +--------+ + + + + | Result panel 72 | + + + + + +--------+ + + | | 2022-01-23 | [facility] | 48.5 | (missing) | (missing) | | (unavailable | 11:00 | [facility] | | | | + + + +--------+ + + + + | Result panel 73 | + + + + + +--------+ + + | | 2022-01-23 | [facility] | 93.0 | (missing) | (missing) | | (unavailable | 11:00 | [facility] | | | | + + + +--------+ + + + + | Result panel 74 | + + + + + +--------+ + + | | 2022-01-23 | [facility] | 30.7 | (missing) | (missing) | | (unavailable | 11:00 | [facility] | | | | + + + +--------+ + + + + | Result panel 75 | + + + + + +--------+ + + | | 2022-01-23 | [facility] | 33.0 | (missing) | (missing) | | (unavailable | 11:00 | [facility] | | | + + + +--------+ + + + + | Result panel 76 | + + + + + +--------+ + + | | 2022-01-23 | [facility] | 15.0 | (missing) | (missing) | | (unavailable | 11:00 | [facility] | | | + + + +--------+ + + + + | Result panel 77 | + + + + + +-------+ + + | | 2022-01-23 | [facility] | 290 | (missing) | (missing) | | (unavailable | 11:00 | [facility] | | | + + + +-------+ + + + + | Result panel 78 | + + + + + +--------+ + + | | 2022-01-23 | [facility] | 64.0 | (missing) | (missing) | | (unavailable | 11:00 | [facility] | | | + + + +--------+ + + + + | Result panel 79 | + + + + + +--------+ + + | | 2022-01-23 | [facility] | 27.8 | (missing) | (missing) | | (unavailable | 11:00 | [facility] | | | + + + +--------+ + + + + | Result panel 80 | + + + + + +-------+ + + | | 2022-01-23 | [facility] | 4.7 | (missing) | (missing) | | (unavailable | 11:00 | [facility] | | | + + + +-------+ + + + + | Result panel 81 | + + + + + +-------+ + + | | 2022-01-23 | [facility] | 2.6 | (missing) | (missing) | | (unavailable | 11:00 | [facility] | | | + + + +-------+ + + + + | Result panel 82 | + + + + + +-------+ + + | | 2022-01-23 | [facility] | 0.9 | (missing) | (missing) | | (unavailable | 11:00 | [facility] | | | + + + +-------+ + + + + | Result panel 83 | + + + + + +-------+---------+ + | | 2022-01-23 | [facility] | 192 | mg/dL | (missing) | | (unavailable | 11:00 | [facility] | | | + + + +-------+---------+ + + + | Result panel 84 | + + + + + +------+---------+ + | | 2022-01-23 | [facility] | 15 | mg/dL | (missing) | | (unavailable | 11:00 | [facility] | | | + + + +------+---------+ + + + | Result panel 85 | + + + + + +--------+---------+ + | | 2022-01-23 | [facility] | 1.03 | mg/dL | (missing) | | (unavailable | 11:00 | [facility] | | | + + + +--------+---------+ + + + | Result panel 86 | + + + + + +------+ + + | | 2022-01-23 | [facility] | 66 | (missing) | (missing) | | (unavailable | 11:00 | [facility] | | | + + + +------+ + + + + | Result panel 87 | + + + + + +---------+ + + | | 2022-01-23 | [facility] | 14.56 | (missing) | (missing) | | (unavailable | 11:00 | [facility] | | | + + + +---------+ + + + + | Result panel 88 | + + + + + +-------+ + + | | 2022-01-23 | [facility] | 138 | (missing) | (missing) | | (unavailable | 11:00 | [facility] | | | + + + +-------+ + + + + | Result panel 89 | + + + + + +-------+ + + | | 2022-01-23 | [facility] | 4.1 | (missing) | (missing) | | (unavailable | 11:00 | [facility] | | | + + + +-------+ + + + + | Result panel 90 | + + + + + +-------+ + + | | 2022-01-23 | [facility] | 103 | (missing) | (missing) | | (unavailable | 11:00 | [facility] | | | + + + +-------+ + + + + | Result panel 91 | + + + + + +------+ + + | | 2022-01-23 | [facility] | 25 | (missing) | (missing) | | (unavailable | 11:00 | [facility] | | | + + + +------+ + + + + | Result panel 92 | + + + + + +--------+ + + | | 2022-01-23 | [facility] | 14.1 | (missing) | (missing) | | (unavailable | 11:00 | [facility] | | | + + + +--------+ + + + + | Result panel 93 | + + + + + +-------+---------+ + | | 2022-01-23 | [facility] | 9.2 | mg/dL | (missing) | | (unavailable | 11:00 | [facility] | | | + + + +-------+---------+ + + + | Result panel 94 | + + + + + +-------+ + + | | 2022-01-23 | [facility] | 7.4 | (missing) | (missing) | | (unavailable | 11:00 | [facility] | | | + + + +-------+ + + + + | Result panel 95 | + + + + + +-------+ + + | | 2022-01-23 | [facility] | 3.4 | (missing) | (missing) | | (unavailable | 11:00 | [facility] | | | + + + +-------+ + + + + | Result panel 96 | + + + + + +-------+ + + | | 2022-01-23 | [facility] | 4.0 | (missing) | (missing) | | (unavailable | 11:00 | [facility] | | | + + + +-------+ + + + + | Result panel 97 | + + + + + +--------+ + + | | 2022-01-23 | [facility] | 0.85 | (missing) | (missing) | | (unavailable | 11:00 | [facility] | | | + + + +--------+ + + + + | Result panel 98 | + + + + + +-------+ + + | | 2022-01-23 | [facility] | 0.3 | (missing) | (missing) | | (unavailable | 11:00 | [facility] | | | + + + +-------+ + + + + | Result panel 99 | + + + + + +------+ + + | | 2022-01-23 | [facility] | 39 | (missing) | (missing) | | (unavailable | 11:00 | [facility] | | | + + + +------+ + + + + | Result panel 100 | + + + + + +------+ + + | | 2022-01-23 | [facility] | 66 | (missing) | (missing) | | (unavailable | 11:00 | [facility] | | | + + + +------+ + + + + | Result panel 101 | + + + + + +-------+ + + | | 2022-01-23 | [facility] | 116 | (missing) | (missing) | | (unavailable | 11:00 | [facility] | | | + + + +-------+ + + + + | Result panel 102 | + + + + + +------+ + + | | 2022-01-23 | [facility] | 89 | (missing) | (missing) | | (unavailable | 11:00 | [facility] | | | + + + +------+ + + + + | Result panel 103 | + + + + + + + + + | | 2022-01-23 | [facility] | YELLOW | (missing) | (missing) | | (unavailable | 12:05 | [facility] | | | + + + + + + + + + | Result panel 104 | + + + + + +---------+ + + | | 2022-01-23 | [facility] | CLEAR | (missing) | (missing) | | (unavailable | 12:05 | [facility] | | | + + + +---------+ + + + + | Result panel 105 | + + + + + + + + + | | 2022-01-23 | [facility] | NEGATIVE | (missing) | (missing) | | (unavailable | 12:05 | [facility] | | | + + + + + + + + + | Result panel 106 | + + + + + + + + + | | 2022-01-23 | [facility] | NEGATIVE | (missing) | (missing) | | (unavailable | 12:05 | [facility] | | | + + + + + + + + + | Result panel 107 | + + + + + + + + + | | 2022-01-23 | [facility] | NEGATIVE | (missing) | (missing) | | (unavailable | 12:05 | [facility] | | | + + + + + + + + + | Result panel 108 | + + + + + + + + + | | 2022-01-23 | [facility] | >=1.030 | (missing) | (missing) | | (unavailable | 12:05 | [facility] | | | + + + + + + + + + | Result panel 109 | + + + + + + + + + | | 2022-01-23 | [facility] | NEGATIVE | (missing) | (missing) | | (unavailable | 12:05 | [facility] | | | + + + + + + + + + | Result panel 110 | + + + + + +-------+ + + | | 2022-01-23 | [facility] | 5.5 | (missing) | (missing) | | (unavailable | 12:05 | [facility] | | | + + + +-------+ + + + + | Result panel 111 | + + + + + +-------+ + + | | 2022-01-23 | [facility] | 100 | (missing) | (missing) | | (unavailable | 12:05 | [facility] | | | + + + +-------+ + + + + | Result panel 112 | + + + + + + + + + | | 2022-01-23 | [facility] | NORMAL | (missing) | (missing) | | (unavailable | 12:05 | [facility] | | | + + + + + + + + + | Result panel 113 | + + + + + + + + + | | 2022-01-23 | [facility] | NEGATIVE | (missing) | (missing) | | (unavailable | 12:05 | [facility] | | | + + + + + + + + + | Result panel 114 | + + + + + + + + + | | 2022-01-23 | [facility] | NEGATIVE | (missing) | (missing) | | (unavailable | 12:05 | [facility] | | | + + + + + + + + + | Result panel 115 | + + + + + +-------+ + + | | 2022-01-23 | [facility] | 0-1 | (missing) | (missing) | | (unavailable | 12:05 | [facility] | | | + + + +-------+ + + + + | Result panel 116 | + + + + + +-------+ + + | | 2022-01-23 | [facility] | 0-1 | (missing) | (missing) | | (unavailable | 12:05 | [facility] | | | + + + +-------+ + + + + | Result panel 117 | + + + + + + + + + | | 2022-01-23 | [facility] | SQUAMOUS 3+ | (missing) | (missing) | | (unavailable | 12:05 | [facility] | | | + + + + + + + + + | Result panel 118 | + + + + + + + + + | | 2022-01-23 | [facility] | NONE SEEN | (missing) | (missing) | | (unavailable | 12:05 | [facility] | | | + + + + + + + + + | Result panel 119 | + + + + + + + + + | | 2022-01-23 | [facility] | NONE SEEN | (missing) | (missing) | | (unavailable | 12:05 | [facility] | | | + + + + + + + + + | Result panel 120 | + + + + + + + + + | | 2022-01-23 | [facility] | NONE SEEN | (missing) | (missing) | | (unavailable | 12:05 | [facility] | | | + + + + + + + + + | Result panel 121 | + + + + + +------+ + + | | 2022-01-23 | [facility] | No | (missing) | (missing) | | (unavailable | 12:05 | [facility] | | | + + + +------+ + + + + | Result panel 122 | + + + + + + + + + | | 2022-01-23 | [facility] | CLEAN CATCH | (missing) | (missing) | | (unavailable | 12:05 | [facility] | | | + + + + + + + + + | Result panel 123 | + + + + + + + + + | | 2022-01-23 | [facility] | POSITIVE | (missing) | (missing) | | (unavailable | 12:05 | [facility] | | | + + + + + + + + + | Result panel 124 | + + + + + + + + + | | 2022-01-23 | [facility] | NEGATIVE | (missing) | (missing) | | (unavailable | 12:05 | [facility] | | | + + + + + + + + + | Result panel 125 | + + + + + + + + + | | 2022-01-23 | [facility] | NEGATIVE | (missing) | (missing) | | (unavailable | 12:05 | [facility] | | | + + + + + + + + + | Result panel 126 | + + + + + + + + + | | 2022-01-23 | [facility] | NEGATIVE | (missing) | (missing) | | (unavailable | 12:05 | [facility] | | | + + + + + + + + + | Result panel 127 | + + + + + + + + + | | 2022-01-23 | [facility] | NEGATIVE | (missing) | (missing) | | (unavailable | 12:05 | [facility] | | | + + + + + + + + + | Result panel 128 | + + + + + + + + + | | 2022-01-23 | [facility] | NEGATIVE | (missing) | (missing) | | (unavailable | 12:05 | [facility] | | | + + + + + + + + + | Result panel 129 | + + + + + + + + + | | 2022-01-23 | [facility] | NEGATIVE | (missing) | (missing) | | (unavailable | 12:05 | [facility] | | | + + + + + + + + + | Result panel 130 | + + + + + + + + + | | 2022-01-23 | [facility] | POSITIVE | (missing) | (missing) | | (unavailable | 12:05 | [facility] | | | + + + + + + + + + | Result panel 131 | + + + + + + + + + | | 2022-01-23 | [facility] | NEGATIVE | (missing) | (missing) | | (unavailable | 12:05 | [facility] | | | + + + + + + + + + | Result panel 132 | + + + + + + + + + | | 2022-01-23 | [facility] | NEGATIVE | (missing) | (missing) | | (unavailable | 12:05 | [facility] | | | + + + + + + + + + | Result panel 133 | + + + + + + + + + | | 2022-01-23 | [facility] | NEGATIVE | (missing) | (missing) | | (unavailable | 12:05 | [facility] | | | + + + + + + + + + | Result panel 134 | + + + + + + + + + | | 2022-01-23 | [facility] | NEGATIVE | (missing) | (missing) | | (unavailable | 12:05 | [facility] | | | + + + + + + + + + | Result panel 135 | + + + + + + + + + | | 2022-01-23 | [facility] | NEGATIVE | (missing) | (missing) | | (unavailable | 12:05 | [facility] | | | + + + + + + + + + | Result panel 136 | + + + + + + + + + | | 2022-01-23 | [facility] | YELLOW | (missing) | (missing) | | (unavailable | 12:05 | [facility] | | | + + + + + + + + + | Result panel 137 | + + + + + +---------+ + + | | 2022-01-23 | [facility] | CLEAR | (missing) | (missing) | | (unavailable | 12:05 | [facility] | | | + + + +---------+ + + + + | Result panel 138 | + + + + + + + + + | | 2022-01-23 | [facility] | NEGATIVE | (missing) | (missing) | | (unavailable | 12:05 | [facility] | | | + + + + + + + + + | Result panel 139 | + + + + + + + + + | | 2022-01-23 | [facility] | NEGATIVE | (missing) | (missing) | | (unavailable | 12:05 | [facility] | | | + + + + + + + + + | Result panel 140 | + + + + + + + + + | | 2022-01-23 | [facility] | NEGATIVE | (missing) | (missing) | | (unavailable | 12:05 | [facility] | | | + + + + + + + + + | Result panel 141 | + + + + + + + + + | | 2022-01-23 | [facility] | >=1.030 | (missing) | (missing) | | (unavailable | 12:05 | [facility] | | | + + + + + + + + + | Result panel 142 | + + + + + + + + + | | 2022-01-23 | [facility] | NEGATIVE | (missing) | (missing) | | (unavailable | 12:05 | [facility] | | | + + + + + + + + + | Result panel 143 | + + + + + +-------+ + + | | 2022-01-23 | [facility] | 5.5 | (missing) | (missing) | | (unavailable | 12:05 | [facility] | | | + + + +-------+ + + + + | Result panel 144 | + + + + + +-------+ + + | | 2022-01-23 | [facility] | 100 | (missing) | (missing) | | (unavailable | 12:05 | [facility] | | | + + + +-------+ + + + + | Result panel 145 | + + + + + + + + + | | 2022-01-23 | [facility] | NORMAL | (missing) | (missing) | | (unavailable | 12:05 | [facility] | | | + + + + + + + + + | Result panel 146 | + + + + + + + + + | | 2022-01-23 | [facility] | NEGATIVE | (missing) | (missing) | | (unavailable | 12:05 | [facility] | | | + + + + + + + + + | Result panel 147 | + + + + + + + + + | | 2022-01-23 | [facility] | NEGATIVE | (missing) | (missing) | | (unavailable | 12:05 | [facility] | | | + + + + + + + + + | Result panel 148 | + + + + + +-------+ + + | | 2022-01-23 | [facility] | 0-1 | (missing) | (missing) | | (unavailable | 12:05 | [facility] | | | + + + +-------+ + + + + | Result panel 149 | + + + + + +-------+ + + | | 2022-01-23 | [facility] | 0-1 | (missing) | (missing) | | (unavailable | 12:05 [facility] | | | + + + +-------+ + + + + | Result panel 150 | + + + + + + + + + | | 2022-01-23 | [facility] | SQUAMOUS 3+ | (missing) | (missing) | | (unavailable | 12:05 | [facility] | | | + + + + + + + + + | Result panel 151 | + + + + + + + + + | | 2022-01-23 | [facility] | NONE SEEN | (missing) | (missing) | | (unavailable | 12:05 | [facility] | | | + + + + + + + + + | Result panel 152 | + + + + + + + + + | | 2022-01-23 | [facility] | NONE SEEN | (missing) | (missing) | | (unavailable | 12:05 | [facility] | | | + + + + + + + + + | Result panel 153 | + + + + + + + + + | | 2022-01-23 | [facility] | NONE SEEN | (missing) | (missing) | | (unavailable | 12:05 [facility] | | | + + + + + + + + + | Result panel 154 | + + + + + +------+ + + | | 2022-01-23 | [facility] | No | (missing) | (missing) | | (unavailable | 12:05 | [facility] | | | + + + +------+ + + + + | Result panel 155 | + + + + + + + + + | | 2022-01-23 | [facility] | CLEAN CATCH | (missing) | (missing) | | (unavailable | 12:05 | [facility] | | | + + + + + + + + + | Result panel 156 | + + + + + + + + + | | 2022-01-23 | [facility] | POSITIVE | (missing) | (missing) | | (unavailable | 12:05 | [facility] | | | + + + + + + + + + | Result panel 157 | + + + + + + + + + | | 2022-01-23 | [facility] | NEGATIVE | (missing) | (missing) | | (unavailable | 12:05 | [facility] | | | + + + + + + + + + | Result panel 158 | + + + + + + + + + | | 2022-01-23 | [facility] | NEGATIVE | (missing) | (missing) | | (unavailable | 12:05 | [facility] | | | + + + + + + + + + | Result panel 159 | + + + + + + + + + | | 2022-01-23 | [facility] | NEGATIVE | (missing) | (missing) | | (unavailable | 12:05 | [facility] | | | + + + + + + + + + | Result panel 160 | + + + + + + + + + | | 2022-01-23 | [facility] | NEGATIVE | (missing) | (missing) | | (unavailable | 12:05 | [facility] | | | + + + + + + + + + | Result panel 161 | + + + + + + + + + | | 2022-01-23 | [facility] | NEGATIVE | (missing) | (missing) | | (unavailable | 12:05 | [facility] | | | + + + + + + + + + | Result panel 162 | + + + + + + + + + | | 2022-01-23 | [facility] | NEGATIVE | (missing) | (missing) | | (unavailable | 12:05 | [facility] | | | + + + + + + + + + | Result panel 163 | + + + + + + + + + | | 2022-01-23 | [facility] | POSITIVE | (missing) | (missing) | | (unavailable | 12:05 | [facility] | | | + + + + + + + + + | Result panel 164 | + + + + + + + + + | | 2022-01-23 | [facility] | NEGATIVE | (missing) | (missing) | | (unavailable | 12:05 | [facility] | | | + + + + + + + + + | Result panel 165 | + + + + + + + + + | | 2022-01-23 | [facility] | NEGATIVE | (missing) | (missing) | | (unavailable | 12:05 | [facility] | | | + + + + + + + + + | Result panel 166 | + + + + + + + + + | | 2022-01-23 | [facility] | NEGATIVE | (missing) | (missing) | | (unavailable | 12:05 | [facility] | | | + + + + + + + + + | Result panel 167 | + + + + + + + + + | | 2022-01-23 | [facility] | NEGATIVE | (missing) | (missing) | | (unavailable | 12:05 | [facility] | | | + + + + + + + + + | Result panel 168 | + + + + + + + + + | | 2022-01-23 | [facility] | NEGATIVE | (missing) | (missing) | | (unavailable | 12:05 [facility] | | | + + + + + + + + + | Result panel 169 | + + + + + +--------+ + + | | 2022-03-04 | [facility] | 13.1 | (missing) | (missing) | | (unavailable | 11:20 | [facility] | | | + + + +--------+ + + + + | Result panel 170 | + + + + + +--------+ + + | | 2022-03-04 | [facility] | 5.55 | (missing) | (missing) | | (unavailable | 11:20 | [facility] | | | + + + +--------+ + + + + | Result panel 171 | + + + + + +--------+ + + | | 2022-03-04 | [facility] | 16.9 | (missing) | (missing) | | (unavailable | 11:20 | [facility] | | | + + + +--------+ + + + + | Result panel 172 | + + + + + +--------+ + + | | 2022-03-04 | [facility] | 50.9 | (missing) | (missing) | | (unavailable | 11:20 | [facility] | | | + + + +--------+ + + + + | Result panel 173 | + + + + + +--------+ + + | | 2022-03-04 | [facility] | 91.7 | (missing) | (missing) | | (unavailable | 11:20 | [facility] | | | + + + +--------+ + + + + | Result panel 174 | + + + + + +--------+ + + | | 2022-03-04 | [facility] | 30.4 | (missing) | (missing) | | (unavailable | 11:20 | [facility] | | | + + + +--------+ + + + + | Result panel 175 | + + + + + +--------+ + + | | 2022-03-04 | [facility] | 33.2 | (missing) | (missing) | | (unavailable | 11:20 | [facility] | | | + + + +--------+ + + + + | Result panel 176 | + + + + + +--------+ + + | | 2022-03-04 | [facility] | 14.9 | (missing) | (missing) | | (unavailable | 11:20 | [facility] | | | + + + +--------+ + + + + | Result panel 177 | + + + + + +-------+ + + | | 2022-03-04 | [facility] | 419 | (missing) | (missing) | | (unavailable | 11:20 | [facility] | | | + + + +-------+ + + + + | Result panel 178 | + + + + + +--------+ + + | | 2022-03-04 | [facility] | 57.9 | (missing) | (missing) | | (unavailable | 11:20 | [facility] | | | + + + +--------+ + + + + | Result panel 179 | + + + + + +--------+ + + | | 2022-03-04 | [facility] | 33.9 | (missing) | (missing) | | (unavailable | 11:20 | [facility] | | | + + + +--------+ + + + + | Result panel 180 | + + + + + +-------+ + + | | 2022-03-04 | [facility] | 5.4 | (missing) | (missing) | | (unavailable | 11:20 | [facility] | | | + + + +-------+ + + + + | Result panel 181 | + + + + + +-------+ + + | | 2022-03-04 | [facility] | 2.2 | (missing) | (missing) | | (unavailable | 11:20 | [facility] | | | | + + + +-------+ + + + + | Result panel 182 | + + + + + +-------+ + + | | 2022-03-04 | [facility] | 0.6 | (missing) | (missing) | | (unavailable | 11:20 | [facility] | | | | + + + +-------+ + + + + | Result panel 183 | + + + + + + + + + | | 2022-03-04 | [facility] | YELLOW | (missing) | (missing) | | (unavailable | 11:34 | [facility] | | | | + + + + + + + + + | Result panel 184 | + + + + + + + + + | | 2022-03-04 | [facility] | SL CLOUDY | (missing) | (missing) | | (unavailable | 11:34 | [facility] | | | | + + + + + + + + + | Result panel 185 | + + + + + + + + + | | 2022-03-04 | [facility] | NEGATIVE | (missing) | (missing) | | (unavailable | 11:34 | [facility] | | | | + + + + + + + + + | Result panel 186 | + + + + + + + + + | | 2022-03-04 | [facility] | NEGATIVE | (missing) | (missing) | | (unavailable | 11:34 | [facility] | | | | + + + + + + + + + | Result panel 187 | + + + + + + + + + | | 2022-03-04 | [facility] | NEGATIVE | (missing) | (missing) | | (unavailable | 11:34 [facility] | | | | + + + + + + + + + | Result panel 188 | + + + + + + + + + | | 2022-03-04 | [facility] | >=1.030 | (missing) | (missing) | | (unavailable | 11:34 | [facility] | | | | + + + + + + + + + | Result panel 189 | + + + + + + + + + | | 2022-03-04 | [facility] | NEGATIVE | (missing) | (missing) | | (unavailable | 11:34 [facility] | | | | + + + + + + + + + | Result panel 190 | + + + + + +-------+ + + | | 2022-03-04 | [facility] | 5.0 | (missing) | (missing) | | (unavailable | 11:34 [facility] | | | | + + + +-------+ + + + + | Result panel 191 | + + + + + +-------+ + + | | 2022-03-04 | [facility] | 100 | (missing) | (missing) | | (unavailable | 11:34 | [facility] | | | | + + + +-------+ + + + + | Result panel 192 | + + + + + + + + + | | 2022-03-04 | [facility] | NORMAL | (missing) | (missing) | | (unavailable | 11:34 | [facility] | | | | + + + + + + + + + | Result panel 193 | + + + + + + + + + | | 2022-03-04 | [facility] | POSITIVE | (missing) | (missing) | | (unavailable | 11:34 | [facility] | | | | + + + + + + + + + | Result panel 194 | + + + + + + + + + | | 2022-03-04 | [facility] | NEGATIVE | (missing) | (missing) | | (unavailable | 11:34 | [facility] | | | | + + + + + + + + + | Result panel 195 | + + + + + +-------+ + + | | 2022-03-04 | [facility] | 0-1 | (missing) | (missing) | | (unavailable | 11:34 | [facility] | | | | + + + +-------+ + + + + | Result panel 196 | + + + + + +--------+ + + | | 2022-03-04 | [facility] | 7-11 | (missing) | (missing) | | (unavailable | 11:34 | [facility] | | | | + + + +--------+ + + + + | Result panel 197 | + + + + + + + + + | | 2022-03-04 | [facility] | | (missing) | (missing) | | (unavailable | 11:34 | [facility] | 4+ | | | + + + + + + + + + | Result panel 198 | + + + + + + + + + | | 2022-03-04 | [facility] | NONE SEEN | (missing) | (missing) | | (unavailable | 11:34 | [facility] | | | | + + + + + + + + + | Result panel 199 | + + + + + +------+ + + | | 2022-03-04 | [facility] | 2+ | (missing) | (missing) | | (unavailable | 11:34 | [facility] | | | | + + + +------+ + + + + | Result panel 200 | + + + + + + + + + | | 2022-03-04 | [facility] | NONE SEEN | (missing) | (missing) | | (unavailable | 11:34 | [facility] | | | | + + + + + + + + + | Result panel 201 | + + + + + +-------+ + + | | 2022-03-04 | [facility] | Yes | (missing) | (missing) | | (unavailable | 11:34 | [facility] | | | + + + +-------+ + + + + | Result panel 202 | + + + + + + + + + | | 2022-03-04 | [facility] | CLEAN CATCH | (missing) | (missing) | | (unavailable | 11:34 | [facility] | | | + + + + + + + + + | Result panel 203 | + + + + + +-------+ + + | | 2022-03-04 | [facility] | 123 | (missing) | (missing) | | (unavailable | 12:00 | [facility] | | | + + + +-------+ + + + + | Result panel 204 | + + + + + +-------+---------+ + | | 2022-03-04 | [facility] | 205 | mg/dL | (missing) | | (unavailable | : | [facility] | | | + + + +-------+---------+ + + + | Result panel 205 | + + + + + +------+---------+ + | | 2022-03-04 | [facility] | 17 | mg/dL | (missing) | | (unavailable | 12:00 [facility] | | | + + + +------+---------+ + + + | Result panel 206 | + + + + + +--------+---------+ + | | 2022-03-04 | [facility] | 1.33 | mg/dL | (missing) | | (unavailable | 12: | [facility] | | | + + + +--------+---------+ + + + | Result panel 207 | + + + + + +------+ + + | | 2022-03-04 | [facility] | 48 | (missing) | (missing) | | (unavailable | 12:00 | [facility] | | | + + + +------+ + + + + | Result panel 208 | + + + + + +---------+ + + | | 2022-03-04 | [facility] | 12.78 | (missing) | (missing) | | (unavailable | 12:00 | [facility] | | | + + + +---------+ + + + + | Result panel 209 | + + + + + +-------+ + + | | 2022-03-04 | [facility] | 141 | (missing) | (missing) | | (unavailable | 12:00 [facility] | | | + + + +-------+ + + + + | Result panel 210 | + + + + + +-------+ + + | | 2022-03-04 | [facility] | 4.5 | (missing) | (missing) | | (unavailable | 12:00 | [facility] | | | + + + +-------+ + + + + | Result panel 211 | + + + + + +-------+ + + | | 2022-03-04 | [facility] | 102 | (missing) | (missing) | | (unavailable | 12:00 | [facility] | | | + + + +-------+ + + + + | Result panel 212 | + + + + + +------+ + + | | 2022-03-04 | [facility] | 26 | (missing) | (missing) | | (unavailable | 12:00 [facility] | | | + + + +------+ + + + + | Result panel 213 | + + + + + +--------+ + + | | 2022-03-04 | [facility] | 17.5 | (missing) | (missing) | | (unavailable | 12:00 | [facility] | | | + + + +--------+ + + + + | Result panel 214 | + + + + + +-------+---------+ + | | 2022-03-04 | [facility] | 9.5 | mg/dL | (missing) | | (unavailable | 12:00 | [facility] | | | + + + +-------+---------+ + + + | Result panel 215 | + + + + + +-------+---------+ + | | 2022-03-04 | [facility] | 1.7 | mg/dL | (missing) | | (unavailable | 12:00 [facility] | | | + + + +-------+---------+ + + + | Result panel 216 | + + + + + +-------+ + + | | 2022-03-04 | [facility] | 7.8 | (missing) | (missing) | | (unavailable | 12:00 [facility] | | | + + + +-------+ + + + + | Result panel 217 | + + + + + +-------+ + + | | 2022-03-04 | [facility] | 3.6 | (missing) | (missing) | | (unavailable | 12:00 | [facility] | | | + + + +-------+ + + + + | Result panel 218 | + + + + + +-------+ + + | | 2022-03-04 | [facility] | 4.2 | (missing) | (missing) | | (unavailable | 12:00 [facility] | | | + + + +-------+ + + + + | Result panel 219 | + + + + + +--------+ + + | | 2022-03-04 | [facility] | 0.86 | (missing) | (missing) | | (unavailable | 12:00 [facility] | | | + + + +--------+ + + + + | Result panel 220 | + + + + + +-------+ + + | | 2022-03-04 | [facility] | 0.5 | (missing) | (missing) | | (unavailable | 12:00 [facility] | | | + + + +-------+ + + + + | Result panel 221 | + + + + + +------+ + + | | 2022-03-04 | [facility] | 66 | (missing) | (missing) | | (unavailable | 12:00 [facility] | | | + + + +------+ + + + + | Result panel 222 | + + + + + +------+ + + | | 2022-03-04 | [facility] | 74 | (missing) | (missing) | | (unavailable | 12:00 [facility] | | | + + + +------+ + + + + | Result panel 223 | + + + + + +-------+ + + | | 2022-03-04 | [facility] | 115 | (missing) | (missing) | | (unavailable | 12:00 [facility] | | | + + + +-------+ + + + + | Result panel 224 | + + + + + +-------+ + + | | 2022-03-04 | [facility] | 123 | (missing) | (missing) | | (unavailable | 12:00 [facility] | | | + + + +-------+ + + + + | Result panel 225 | + + + + + +-------+---------+ + | | 2022-03-04 | [facility] | 1.7 | mg/dL | (missing) | | (unavailable | 12:00 [facility] | | | + + + +-------+---------+ + + + | Result panel 226 | + + + + + +-------+ + + | | 2022-03-04 | [facility] | 123 | (missing) | (missing) | | (unavailable | 12:00 [facility] | | | + + + +-------+ + + + + | Result panel 227 | + + + + + +-------+ + + | | 2022-03-04 | [facility] | 123 | (missing) | (missing) | | (unavailable | 12:00 [facility] | | | + + + +-------+ + + + + | Result panel 228 | + + + + + +-------+ + + | | 2022-03-07 | [facility] | 1.9 | (missing) | (missing) | | (unavailable | 14:19 | [facility] | | | + + + +-------+ + + + + | Result panel 229 | + + + + + +-------+ + + | | 2022-03-07 | [facility] | 1.9 | (missing) | (missing) | | (unavailable | 14:19 [facility] | | | + + + +-------+ + + + + | Result panel 230 | + + + + + +--------+ + + | | 2022-03-07 | [facility] | 14.0 | (missing) | (missing) | | (unavailable | 14:19 | [facility] | | | + + + +--------+ + + + + | Result panel 231 | + + + + + +--------+ + + | | 2022-03-07 | [facility] | 5.32 | (missing) | (missing) | | (unavailable | 14:19 | [facility] | | | + + + +--------+ + + + + | Result panel 232 | + + + + + +--------+ + + | | 2022-03-07 | [facility] | 16.2 | (missing) | (missing) | | (unavailable | 14:19 | [facility] | | | + + + +--------+ + + + + | Result panel 233 | + + + + + +--------+ + + | | 2022-03-07 | [facility] | 48.9 | (missing) | (missing) | | (unavailable | 14:19 | [facility] | | | + + + +--------+ + + + + | Result panel 234 | + + + + + +--------+ + + | | 2022-03-07 | [facility] | 91.9 | (missing) | (missing) | | (unavailable | 14:19 [facility] | | | + + + +--------+ + + + + | Result panel 235 | + + + + + +--------+ + + | | 2022-03-07 | [facility] | 30.4 | (missing) | (missing) | | (unavailable | 14:19 [facility] | | | + + + +--------+ + + + + | Result panel 236 | + + + + + +--------+ + + | | 2022-03-07 | [facility] | 33.1 | (missing) | (missing) | | (unavailable | 14:19 [facility] | | | + + + +--------+ + + + + | Result panel 237 | + + + + + +--------+ + + | | 2022-03-07 | [facility] | 14.5 | (missing) | (missing) | | (unavailable | 14:19 [facility] | | | + + + +--------+ + + + + | Result panel 238 | + + + + + +-------+ + + | | 2022-03-07 | [facility] | 363 | (missing) | (missing) | | (unavailable | 14:19 | [facility] | | | + + + +-------+ + + + + | Result panel 239 | + + + + + +--------+ + + | | 2022-03-07 | [facility] | 62.3 | (missing) | (missing) | | (unavailable | 14:19 [facility] | | | + + + +--------+ + + + + | Result panel 240 | + + + + + +--------+ + + | | 2022-03-07 | [facility] | 27.5 | (missing) | (missing) | | (unavailable | 14:19 [facility] | | | + + + +--------+ + + + + | Result panel 241 | + + + + + +-------+ + + | | 2022-03-07 | [facility] | 5.9 | (missing) | (missing) | | (unavailable | 14:19 [facility] | | | + + + +-------+ + + + + | Result panel 242 | + + + + + +-------+ + + | | 2022-03-07 | [facility] | 2.3 | (missing) | (missing) | | (unavailable | 14:19 [facility] | | | + + + +-------+ + + + + | Result panel 243 | + + + + + +-------+ + + | | 2022-03-07 | [facility] | 2.0 | (missing) | (missing) | | (unavailable | 14:19 | [facility] | | | + + + +-------+ + + + + | Result panel 244 | + + + + + +-------+---------+ + | | 2022-03-07 | [facility] | 135 | mg/dL | (missing) | | (unavailable | 14:19 | [facility] | | | + + + +-------+---------+ + + + | Result panel 245 | + + + + + +------+---------+ + | | 2022-03-07 | [facility] | 18 | mg/dL | (missing) | | (unavailable | 14:19 | [facility] | | | + + + +------+---------+ + + + | Result panel 246 | + + + + + +--------+---------+ + | | 2022-03-07 | [facility] | 1.17 | mg/dL | (missing) | | (unavailable | 14:19 [facility] | | | + + + +--------+---------+ + + + | Result panel 247 | + + + + + +------+ + + | | 2022-03-07 | [facility] | 56 | (missing) | (missing) | | (unavailable | 14:19 [facility] | | | + + + +------+ + + + + | Result panel 248 | + + + + + +---------+ + + | | 2022-03-07 | [facility] | 15.38 | (missing) | (missing) | | (unavailable | 14:19 [facility] | | | + + + +---------+ + + + + | Result panel 249 | + + + + + +-------+ + + | | 2022-03-07 | [facility] | 138 | (missing) | (missing) | | (unavailable | 14:19 [facility] | | | + + + +-------+ + + + + | Result panel 250 | + + + + + +-------+ + + | | 2022-03-07 | [facility] | 4.6 | (missing) | (missing) | | (unavailable | 14:19 [facility] | | | + + + +-------+ + + + + | Result panel 251 | + + + + + +-------+ + + | | 2022-03-07 | [facility] | 102 | (missing) | (missing) | | (unavailable | 14:19 [facility] | | | + + + +-------+ + + + + | Result panel 252 | + + + + + +------+ + + | | 2022-03-07 | [facility] | 26 | (missing) | (missing) | | (unavailable | 14:19 [facility] | | | + + + +------+ + + + + | Result panel 253 | + + + + + +--------+ + + | | 2022-03-07 | [facility] | 14.6 | (missing) | (missing) | | (unavailable | 14:19 [facility] | | | + + + +--------+ + + + + | Result panel 254 | + + + + + +--------+---------+ + | | 2022-03-07 | [facility] | 10.0 | mg/dL | (missing) | | (unavailable | 14:19 [facility] | | | + + + +--------+---------+ + + + | Result panel 255 | + + + + + +-------+ + + | | 2022-03-07 | [facility] | 7.7 | (missing) | (missing) | | (unavailable | 14:19 [facility] | | | + + + +-------+ + + + + | Result panel 256 | + + + + + +-------+ + + | | 2022-03-07 | [facility] | 3.7 | (missing) | (missing) | | (unavailable | 14:19 [facility] | | | + + + +-------+ + + + + | Result panel 257 | + + + + + +-------+ + + | | 2022-03-07 | [facility] | 4.0 | (missing) | (missing) | | (unavailable | 14:19 [facility] | | | + + + +-------+ + + + + | Result panel 258 | + + + + + +--------+ + + | | 2022-03-07 | [facility] | 0.93 | (missing) | (missing) | | (unavailable | 14:19 [facility] | | | + + + +--------+ + + + + | Result panel 259 | + + + + + +-------+ + + | | 2022-03-07 | [facility] | 0.2 | (missing) | (missing) | | (unavailable | 14:19 [facility] | | | + + + +-------+ + + + + | Result panel 260 | + + + + + +------+ + + | | 2022-03-07 | [facility] | 35 | (missing) | (missing) | | (unavailable | 14:19 [facility] | | | + + + +------+ + + + + | Result panel 261 | + + + + + +------+ + + | | 2022-03-07 | [facility] | 54 | (missing) | (missing) | | (unavailable | 14:19 [facility] | | | + + + +------+ + + + + | Result panel 262 | + + + + + +-------+ + + | | 2022-03-07 | [facility] | 120 | (missing) | (missing) | | (unavailable | 14:19 [facility] | | | + + + +-------+ + + + + | Result panel 263 | + + + + + +-------+ + + | | 2022-03-07 | [facility] | 1.9 | (missing) | (missing) | | (unavailable | 14:19 | [facility] | | | + + + +-------+ + + + + | Result panel 264 | + + + + + + + + + | | 2022-03-07 | [facility] | NEGATIVE | (missing) | (missing) | | (unavailable | 14:40 | [facility] | | | + + + + + + + + + | Result panel 265 | + + + + + + + + + | | 2022-03-07 | [facility] | NEGATIVE | (missing) | (missing) | | (unavailable | 14:40 | [facility] | | | + + + + + + + + + | Result panel 266 | + + + + + + + + + | | 2022-03-07 | [facility] | NEGATIVE | (missing) | (missing) | | (unavailable | 14:40 [facility] | | | + + + + + + + + + | Result panel 267 | + + + + + +---------+ + + | | 2022-03-07 | [facility] | 1.025 | (missing) | (missing) | | (unavailable | 14:40 | [facility] | | | + + + +---------+ + + + + | Result panel 268 | + + + + + + + + + | | 2022-03-07 | [facility] | NEGATIVE | (missing) | (missing) | | (unavailable | 14:40 [facility] | | | + + + + + + + + + | Result panel 269 | + + + + + +-------+ + + | | 2022-03-07 | [facility] | 6.5 | (missing) | (missing) | | (unavailable | 14:40 | [facility] | | | + + + +-------+ + + + + | Result panel 270 | + + + + + +-------+ + + | | 2022-03-07 | [facility] | 100 | (missing) | (missing) | | (unavailable | 14:40 [facility] | | | + + + +-------+ + + + + | Result panel 271 | + + + + + + + + + | | 2022-03-07 | [facility] | NORMAL | (missing) | (missing) | | (unavailable | 14:40 [facility] | | | + + + + + + + + + | Result panel 272 | + + + + + + + + + | | 2022-03-07 | [facility] | POSITIVE | (missing) | (missing) | | (unavailable | 14:40 [facility] | | | + + + + + + + + + | Result panel 273 | + + + + + + + + + | | 2022-03-07 | [facility] | NEGATIVE | (missing) | (missing) | | (unavailable | 14:40 [facility] | | | + + + + + + + + + | Result panel 274 | + + + + + +-------+ + + | | 2022-03-07 | [facility] | 0-1 | (missing) | (missing) | | (unavailable | 14:40 [facility] | | | + + + +-------+ + + + + | Result panel 275 | + + + + + +-------+ + + | | 2022-03-07 | [facility] | 4-6 | (missing) | (missing) | | (unavailable | 14:40 [facility] | | | + + + +-------+ + + + + | Result panel 276 | + + + + + + + + + | | 2022-03-07 | [facility] | SQUAMOUS 1+ | (missing) | (missing) | | (unavailable | 14:40 | [facility] | | | + + + + + + + + + | Result panel 277 | + + + + + + + + + | | 2022-03-07 | [facility] | NONE SEEN | (missing) | (missing) | | (unavailable | 14:40 [facility] | | | + + + + + + + + + | Result panel 278 | + + + + + +------+ + + | | 2022-03-07 | [facility] | 4+ | (missing) | (missing) | | (unavailable | 14:40 [facility] | | | + + + +------+ + + + + | Result panel 279 | + + + + + + + + + | | 2022-03-07 | [facility] | NONE SEEN | (missing) | (missing) | | (unavailable | 14:40 [facility] | | | + + + + + + + + + | Result panel 280 | + + + + + +-------+ + + | | 2022-03-07 | [facility] | Yes | (missing) | (missing) | | (unavailable | 14:40 [facility] | | | + + + +-------+ + + + + | Result panel 281 | + + + + + +--------+ + + | | 2022-03-07 | [facility] | CATH | (missing) | (missing) | | (unavailable | 14:40 [facility] | | | + + + +--------+ + + + + | Result panel 282 | + + + + + + + + + | | 2022-03-07 | [facility] | YELLOW | (missing) | (missing) | | (unavailable | 14:40 [facility] | | | + + + + + + + + + | Result panel 283 | + + + + + +---------+ + + | | 2022-03-07 | [facility] | CLEAR | (missing) | (missing) | | (unavailable | 14:40 [facility] | | | + + + +---------+ + + + + | Result panel 284 | + + + + + + + + + | | 2022-03-07 | [facility] | NEGATIVE | (missing) | (missing) | | (unavailable | 14:40 [facility] | | | + + + + + + + + + | Result panel 285 | + + + + + + + + + | | 2022-03-07 | [facility] | NEGATIVE | (missing) | (missing) | | (unavailable | 14:40 [facility] | | | + + + + + + + + + | Result panel 286 | + + + + + + + + + | | 2022-03-07 | [facility] | NEGATIVE | (missing) | (missing) | | (unavailable | 14:40 [facility] | | | + + + + + + + + + | Result panel 287 | + + + + + +---------+ + + | | 2022-03-07 | [facility] | 1.025 | (missing) | (missing) | | (unavailable | 14:40 [facility] | | | + + + +---------+ + + + + | Result panel 288 | + + + + + + + + + | | 2022-03-07 | [facility] | NEGATIVE | (missing) | (missing) | | (unavailable | 14:40 [facility] | | | + + + + + + + + + | Result panel 289 | + + + + + +-------+ + + | | 2022-03-07 | [facility] | 6.5 | (missing) | (missing) | | (unavailable | 14:40 [facility] | | | + + + +-------+ + + + + | Result panel 290 | + + + + + +-------+ + + | | 2022-03-07 | [facility] | 100 | (missing) | (missing) | | (unavailable | 14:40 [facility] | | | + + + +-------+ + + + + | Result panel 291 | + + + + + + + + + | | 2022-03-07 | [facility] | NORMAL | (missing) | (missing) | | (unavailable | 14:40 | [facility] | | | + + + + + + + + + | Result panel 292 | + + + + + + + + + | | 2022-03-07 | [facility] | POSITIVE | (missing) | (missing) | | (unavailable | 14:40 [facility] | | | + + + + + + + + + | Result panel 293 | + + + + + + + + + | | 2022-03-07 | [facility] | NEGATIVE | (missing) | (missing) | | (unavailable | 14:40 [facility] | | | + + + + + + + + + | Result panel 294 | + + + + + +-------+ + + | | 2022-03-07 | [facility] | 0-1 | (missing) | (missing) | | (unavailable | 14:40 [facility] | | | + + + +-------+ + + + + | Result panel 295 | + + + + + +-------+ + + | | 2022-03-07 | [facility] | 4-6 | (missing) | (missing) | | (unavailable | 14:40 [facility] | | | + + + +-------+ + + + + | Result panel 296 | + + + + + + + + + | | 2022-03-07 | [facility] | SQUAMOUS 1+ | (missing) | (missing) | | (unavailable | 14:40 | [facility] | | | + + + + + + + + + | Result panel 297 | + + + + + + + + + | | 2022-03-07 | [facility] | NONE SEEN | (missing) | (missing) | | (unavailable | 14:40 [facility] | | | + + + + + + + + + | Result panel 298 | + + + + + +------+ + + | | 2022-03-07 | [facility] | 4+ | (missing) | (missing) | | (unavailable | 14:40 [facility] | | | + + + +------+ + + + + | Result panel 299 | + + + + + + + + + | | 2022-03-07 | [facility] | NONE SEEN | (missing) | (missing) | | (unavailable | 14:40 [facility] | | | + + + + + + + + + | Result panel 300 | + + + + + +-------+ + + | | 2022-03-07 | [facility] | Yes | (missing) | (missing) | | (unavailable | 14:40 [facility] | | | + + + +-------+ + + + + | Result panel 301 | + + + + + +--------+ + + | | 2022-03-07 | [facility] | CATH | (missing) | (missing) | | (unavailable | 14:40 [facility] | | | + + + +--------+ + + + + | Result panel 302 | + + + + + + + + + | | 2022-03-07 | [facility] | YELLOW | (missing) | (missing) | | (unavailable | 14:40 [facility] | | | + + + + + + + + + | Result panel 303 | + + + + + +---------+ + + | | 2022-03-07 | [facility] | CLEAR | (missing) | (missing) | | (unavailable | 14:40 [facility] | | | + + + +---------+ + + + + | Result panel 304 | + + + + + + + + + | | 2022-03-07 | [facility] | NEGATIVE | (missing) | (missing) | | (unavailable | 14:40 [facility] | | | + + + + + + + + + | Result panel 305 | + + + + + + + + + | | 2022-03-07 | [facility] | NEGATIVE | (missing) | (missing) | | (unavailable | 14:40 [facility] | | | + + + + + + + + + | Result panel 306 | + + + + + + + + + | | 2022-03-07 | [facility] | NEGATIVE | (missing) | (missing) | | (unavailable | 14:40 [facility] | | | + + + + + + + + + | Result panel 307 | + + + + + +---------+ + + | | 2022-03-07 | [facility] | 1.025 | (missing) | (missing) | | (unavailable | 14:40 [facility] | | | + + + +---------+ + + + + | Result panel 308 | + + + + + + + + + | | 2022-03-07 | [facility] | NEGATIVE | (missing) | (missing) | | (unavailable | 14:40 [facility] | | | + + + + + + + + + | Result panel 309 | + + + + + +-------+ + + | | 2022-03-07 | [facility] | 6.5 | (missing) | (missing) | | (unavailable | 14:40 [facility] | | | + + + +-------+ + + + + | Result panel 310 | + + + + + +-------+ + + | | 2022-03-07 | [facility] | 100 | (missing) | (missing) | | (unavailable | 14:40 [facility] | | | + + + +-------+ + + + + | Result panel 311 | + + + + + + + + + | | 2022-03-07 | [facility] | NORMAL | (missing) | (missing) | | (unavailable | 14:40 | [facility] | | | | + + + + + + + + + | Result panel 312 | + + + + + + + + + | | 2022-03-07 | [facility] | POSITIVE | (missing) | (missing) | | (unavailable | 14:40 | [facility] | | | | + + + + + + + + + | Result panel 313 | + + + + + + + + + | | 2022-03-07 | [facility] | NEGATIVE | (missing) | (missing) | | (unavailable | 14:40 | [facility] | | | | + + + + + + + + + | Result panel 314 | + + + + + +-------+ + + | | 2022-03-07 | [facility] | 0-1 | (missing) | (missing) | | (unavailable | 14:40 | [facility] | | | | + + + +-------+ + + + + | Result panel 315 | + + + + + +-------+ + + | | 2022-03-07 | [facility] | 4-6 | (missing) | (missing) | | (unavailable | 14:40 | [facility] | | | | + + + +-------+ + + + + | Result panel 316 | + + + + + + + + + | | 2022-03-07 | [facility] | SQUAMOUS 1+ | (missing) | (missing) | | (unavailable | 14:40 | [facility] | | | | + + + + + + + + + | Result panel 317 | + + + + + + + + + | | 2022-03-07 | [facility] | NONE SEEN | (missing) | (missing) | | (unavailable | 14:40 | [facility] | | | | + + + + + + + + + | Result panel 318 | + + + + + +------+ + + | | 2022-03-07 | [facility] | 4+ | (missing) | (missing) | | (unavailable | 14:40 | [facility] | | | | + + + +------+ + + + + | Result panel 319 | + + + + + + + + + | | 2022-03-07 | [facility] | NONE SEEN | (missing) | (missing) | | (unavailable | 14:40 | [facility] | | | | + + + + + + + + + | Result panel 320 | + + + + + +-------+ + + | | 2022-03-07 | [facility] | Yes | (missing) | (missing) | | (unavailable | 14:40 | [facility] | | | | + + + +-------+ + + + + | Result panel 321 | + + + + + +--------+ + + | | 2022-03-07 | [facility] | CATH | (missing) | (missing) | | (unavailable | 14:40 | [facility] | | | | + + + +--------+ + + + + | Result panel 322 | + + + + + + + + + | | 2022-03-07 | [facility] | YELLOW | (missing) | (missing) | | (unavailable | 14:40 | [facility] | | | | + + + + + + + + + | Result panel 323 | + + + + + +---------+ + + | | 2022-03-07 | [facility] | CLEAR | (missing) | (missing) | | (unavailable | 14:40 | [facility] | | | | + + + +---------+ + + + + | Result panel 324 | + + + + + +--------+ + + | | 2022-03-31 | [facility] | 15.8 | (missing) | (missing) | | (unavailable | 16:06 | [facility] | | | | + + + +--------+ + + + + | Result panel 325 | + + + + + +--------+ + + | | 2022-03-31 | [facility] | 5.42 | (missing) | (missing) | | (unavailable | 16:06 | [facility] | | | | + + + +--------+ + + + + | Result panel 326 | + + + + + +--------+ + + | | 2022-03-31 | [facility] | 16.5 | (missing) | (missing) | | (unavailable | 16:06 | [facility] | | | | + + + +--------+ + + + + | Result panel 327 | + + + + + +--------+ + + | | 2022-03-31 | [facility] | 49.6 | (missing) | (missing) | | (unavailable | 16:06 | [facility] | | | | + + + +--------+ + + + + | Result panel 328 | + + + + + +--------+ + + | | 2022-03-31 | [facility] | 91.5 | (missing) | (missing) | | (unavailable | 16:06 [facility] | | | + + + +--------+ + + + + | Result panel 329 | + + + + + +--------+ + + | | 2022-03-31 | [facility] | 30.5 | (missing) | (missing) | | (unavailable | 16:06 [facility] | | | + + + +--------+ + + + + | Result panel 330 | + + + + + +--------+ + + | | 2022-03-31 | [facility] | 33.3 | (missing) | (missing) | | (unavailable | 16:06 [facility] | | | + + + +--------+ + + + + | Result panel 331 | + + + + + +--------+ + + | | 2022-03-31 | [facility] | 14.3 | (missing) | (missing) | | (unavailable | 16:06 [facility] | | | + + + +--------+ + + + + | Result panel 332 | + + + + + +-------+ + + | | 2022-03-31 | [facility] | 361 | (missing) | (missing) | | (unavailable | 16:06 [facility] | | | + + + +-------+ + + + + | Result panel 333 | + + + + + +--------+ + + | | 2022-03-31 | [facility] | 63.7 | (missing) | (missing) | | (unavailable | 16:06 [facility] | | | + + + +--------+ + + + + | Result panel 334 | + + + + + +--------+ + + | | 2022-03-31 | [facility] | 30.0 | (missing) | (missing) | | (unavailable | 16:06 [facility] | | | + + + +--------+ + + + + | Result panel 335 | + + + + + +-------+ + + | | 2022-03-31 | [facility] | 4.0 | (missing) | (missing) | | (unavailable | 16:06 [facility] | | | + + + +-------+ + + + + | Result panel 336 | + + + + + +-------+ + + | | 2022-03-31 | [facility] | 1.4 | (missing) | (missing) | | (unavailable | 16:06 [facility] | | | + + + +-------+ + + + + | Result panel 337 | + + + + + +-------+ + + | | 2022-03-31 | [facility] | 0.9 | (missing) | (missing) | | (unavailable | 16:06 [facility] | | | + + + +-------+ + + + + | Result panel 338 | + + + + + +-------+---------+ + | | 2022-03-31 | [facility] | 149 | mg/dL | (missing) | | (unavailable | 16:35 [facility] | | | + + + +-------+---------+ + + + | Result panel 339 | + + + + + +------+---------+ + | | 2022-03-31 | [facility] | 20 | mg/dL | (missing) | | (unavailable | 16:35 [facility] | | | + + + +------+---------+ + + + | Result panel 340 | + + + + + +--------+---------+ + | | 2022-03-31 | [facility] | 1.09 | mg/dL | (missing) | | (unavailable | 16:35 [facility] | | | + + + +--------+---------+ + + + | Result panel 341 | + + + + + +------+ + + | | 2022-03-31 | [facility] | 61 | (missing) | (missing) | | (unavailable | 16:35 [facility] | | | + + + +------+ + + + + | Result panel 342 | + + + + + +---------+ + + | | 2022-03-31 | [facility] | 18.34 | (missing) | (missing) | | (unavailable | 16:35 [facility] | | | + + + +---------+ + + + + | Result panel 343 | + + + + + +-------+ + + | | 2022-03-31 | [facility] | 136 | (missing) | (missing) | | (unavailable | 16:35 [facility] | | | + + + +-------+ + + + + | Result panel 344 | + + + + + +-------+ + + | | 2022-03-31 | [facility] | 3.9 | (missing) | (missing) | | (unavailable | 16:35 [facility] | | | + + + +-------+ + + + + | Result panel 345 | + + + + + +-------+ + + | | 2022-03-31 | [facility] | 101 | (missing) | (missing) | | (unavailable | 16:35 [facility] | | | + + + +-------+ + + + + | Result panel 346 | + + + + + +------+ + + | | 2022-03-31 | [facility] | 24 | (missing) | (missing) | | (unavailable | 16:35 [facility] | | | + + + +------+ + + + + | Result panel 347 | + + + + + +--------+ + + | | 2022-03-31 | [facility] | 14.9 | (missing) | (missing) | | (unavailable | 16:35 [facility] | | | + + + +--------+ + + + + | Result panel 348 | + + + + + +-------+---------+ + | | 2022-03-31 | [facility] | 9.7 | mg/dL | (missing) | | (unavailable | 16:35 [facility] | | | + + + +-------+---------+ + + + | Result panel 349 | + + + + + +-------+---------+ + | | 2022-03-31 | [facility] | 1.8 | mg/dL | (missing) | | (unavailable | 16:35 [facility] | | | + + + +-------+---------+ + + + | Result panel 350 | + + + + + +-------+ + + | | 2022-03-31 | [facility] | 7.7 | (missing) | (missing) | | (unavailable | 16:35 [facility] | | | + + + +-------+ + + + + | Result panel 351 | + + + + + +-------+ + + | | 2022-03-31 | [facility] | 3.7 | (missing) | (missing) | | (unavailable | 16:35 [facility] | | | + + + +-------+ + + + + | Result panel 352 | + + + + + +-------+ + + | | 2022-03-31 | [facility] | 4.0 | (missing) | (missing) | | (unavailable | 16:35 [facility] | | | + + + +-------+ + + + + | Result panel 353 | + + + + + +--------+ + + | | 2022-03-31 | [facility] | 0.93 | (missing) | (missing) | | (unavailable | 16:35 [facility] | | | + + + +--------+ + + + + | Result panel 354 | + + + + + +-------+ + + | | 2022-03-31 | [facility] | 0.3 | (missing) | (missing) | | (unavailable | 16:35 [facility] | | | + + + +-------+ + + + + | Result panel 355 | + + + + + +------+ + + | | 2022-03-31 | [facility] | 42 | (missing) | (missing) | | (unavailable | 16:35 [facility] | | | + + + +------+ + + + + | Result panel 356 | + + + + + +------+ + + | | 2022-03-31 | [facility] | 64 | (missing) | (missing) | | (unavailable | 16:35 [facility] | | | + + + +------+ + + + + | Result panel 357 | + + + + + +-------+ + + | | 2022-03-31 | [facility] | 130 | (missing) | (missing) | | (unavailable | 16:35 [facility] | | | + + + +-------+ + + + + | Result panel 358 | + + + + + +-------+ + + | | 2022-03-31 | [facility] | 7.6 | (missing) | (missing) | | (unavailable | 16:35 [facility] | | | + + + +-------+ + + + + | Result panel 359 | + + + + + +-------+---------+ + | | 2022-03-31 | [facility] | 1.8 | mg/dL | (missing) | | (unavailable | 16:35 [facility] | | | + + + +-------+---------+ + + + | Result panel 360 | + + + + + +-------+---------+ + | | 2022-03-31 | [facility] | 1.8 | mg/dL | (missing) | | (unavailable | 16:35 [facility] | | | + + + +-------+---------+ + + + | Result panel 361 | + + + + + +-------+---------+ + | | 2022-03-31 | [facility] | 1.8 | mg/dL | (missing) | | (unavailable | 16:35 [facility] | | | + + + +-------+---------+ + + + | Result panel 362 | + + + + + +--------+ + + | | 2022-04-02 | [facility] | 15.4 | (missing) | (missing) | | (unavailable | 17:36 [facility] | | | + + + +--------+ + + + + | Result panel 363 | + + + + + +--------+ + + | | 2022-04-02 | [facility] | 5.14 | (missing) | (missing) | | (unavailable | 17:36 [facility] | | | + + + +--------+ + + + + | Result panel 364 | + + + + + +--------+ + + | | 2022-04-02 | [facility] | 16.0 | (missing) | (missing) | | (unavailable | 17:36 [facility] | | | + + + +--------+ + + + + | Result panel 365 | + + + + + +--------+ + + | | 2022-04-02 | [facility] | 47.3 | (missing) | (missing) | | (unavailable | 17:36 [facility] | | | + + + +--------+ + + + + | Result panel 366 | + + + + + +--------+ + + | | 2022-04-02 | [facility] | 92.1 | (missing) | (missing) | | (unavailable | 17:36 [facility] | | | + + + +--------+ + + + + | Result panel 367 | + + + + + +--------+ + + | | 2022-04-02 | [facility] | 31.1 | (missing) | (missing) | | (unavailable | 17:36 [facility] | | | + + + +--------+ + + + + | Result panel 368 | + + + + + +--------+ + + | | 2022-04-02 | [facility] | 33.8 | (missing) | (missing) | | (unavailable | 17:36 [facility] | | | + + + +--------+ + + + + | Result panel 369 | + + + + + +--------+ + + | | 2022-04-02 | [facility] | 14.1 | (missing) | (missing) | | (unavailable | 17:36 [facility] | | | + + + +--------+ + + + + | Result panel 370 | + + + + + +-------+ + + | | 2022-04-02 | [facility] | 255 | (missing) | (missing) | | (unavailable | 17:36 [facility] | | | + + + +-------+ + + + + | Result panel 371 | + + + + + +--------+ + + | | 2022-04-02 | [facility] | 58.4 | (missing) | (missing) | | (unavailable | 17:36 [facility] | | | + + + +--------+ + + + + | Result panel 372 | + + + + + +--------+ + + | | 2022-04-02 | [facility] | 34.0 | (missing) | (missing) | | (unavailable | 17:36 [facility] | | | + + + +--------+ + + + + | Result panel 373 | + + + + + +-------+ + + | | 2022-04-02 | [facility] | 3.2 | (missing) | (missing) | | (unavailable | 17:36 [facility] | | | + + + +-------+ + + + + | Result panel 374 | + + + + + +-------+ + + | | 2022-04-02 | [facility] | 2.5 | (missing) | (missing) | | (unavailable | 17:36 [facility] | | | + + + +-------+ + + + + | Result panel 375 | + + + + + +-------+ + + | | 2022-04-02 | [facility] | 1.9 | (missing) | (missing) | | (unavailable | 17:36 [facility] | | | + + + +-------+ + + + + | Result panel 376 | + + + + + +-------+---------+ + | | 2022-04-02 | [facility] | 154 | mg/dL | (missing) | | (unavailable | 17:36 [facility] | | | + + + +-------+---------+ + + + | Result panel 377 | + + + + + +------+---------+ + | | 2022-04-02 | [facility] | 17 | mg/dL | (missing) | | (unavailable | 17:36 [facility] | | | + + + +------+---------+ + + + | Result panel 378 | + + + + + +--------+---------+ + | | 2022-04-02 | [facility] | 1.09 | mg/dL | (missing) | | (unavailable | 17:36 [facility] | | | + + + +--------+---------+ + + + | Result panel 379 | + + + + + +------+ + + | | 2022-04-02 | [facility] | 61 | (missing) | (missing) | | (unavailable | 17:36 [facility] | | | + + + +------+ + + + + | Result panel 380 | + + + + + +---------+ + + | | 2022-04-02 | [facility] | 15.59 | (missing) | (missing) | | (unavailable | 17:36 [facility] | | | + + + +---------+ + + + + | Result panel 381 | + + + + + +-------+ + + | | 2022-04-02 | [facility] | 139 | (missing) | (missing) | | (unavailable | 17:36 [facility] | | | + + + +-------+ + + + + | Result panel 382 | + + + + + +-------+ + + | | 2022-04-02 | [facility] | 3.9 | (missing) | (missing) | | (unavailable | 17:36 [facility] | | | + + + +-------+ + + + + | Result panel 383 | + + + + + +-------+ + + | | 2022-04-02 | [facility] | 100 | (missing) | (missing) | | (unavailable | 17:36 [facility] | | | + + + +-------+ + + + + | Result panel 384 | + + + + + +------+ + + | | 2022-04-02 | [facility] | 28 | (missing) | (missing) | | (unavailable | 17:36 [facility] | | | + + + +------+ + + + + | Result panel 385 | + + + + + +--------+ + + | | 2022-04-02 | [facility] | 14.9 | (missing) | (missing) | | (unavailable | 17:36 [facility] | | | + + + +--------+ + + + + | Result panel 386 | + + + + + +-------+---------+ + | | 2022-04-02 | [facility] | 9.9 | mg/dL | (missing) | | (unavailable | 17:36 [facility] | | | + + + +-------+---------+ + + + | Result panel 387 | + + + + + +-------+ + + | | 2022-04-02 | [facility] | 8.2 | (missing) | (missing) | | (unavailable | 17:36 [facility] | | | + + + +-------+ + + + + | Result panel 388 | + + + + + +-------+ + + | | 2022-04-02 | [facility] | 3.7 | (missing) | (missing) | | (unavailable | 17:36 [facility] | | | + + + +-------+ + + + + | Result panel 389 | + + + + + +-------+ + + | | 2022-04-02 | [facility] | 4.5 | (missing) | (missing) | | (unavailable | 17:36 [facility] | | | + + + +-------+ + + + + | Result panel 390 | + + + + + +--------+ + + | | 2022-04-02 | [facility] | 0.82 | (missing) | (missing) | | (unavailable | 17:36 [facility] | | | + + + +--------+ + + + + | Result panel 391 | + + + + + +-------+ + + | | 2022-04-02 | [facility] | 0.3 | (missing) | (missing) | | (unavailable | 17:36 [facility] | | | + + + +-------+ + + + + | Result panel 392 | + + + + + +------+ + + | | 2022-04-02 | [facility] | 39 | (missing) | (missing) | | (unavailable | 17:36 [facility] | | | + + + +------+ + + + + | Result panel 393 | + + + + + +------+ + + | | 2022-04-02 | [facility] | 67 | (missing) | (missing) | | (unavailable | 17:36 [facility] | | | + + + +------+ + + + + | Result panel 394 | + + + + + +-------+ + + | | 2022-04-02 | [facility] | 117 | (missing) | (missing) | | (unavailable | 17:36 [facility] | | | + + + +-------+ + + + + | Result panel 395 | + + + + + +-------+ + + | | 2022-04-02 | [facility] | 9.4 | (missing) | (missing) | | (unavailable | 17:36 [facility] | | | + + + +-------+ + + + + | Result panel 396 | + + + + + +--------+ + + | | 2022-04-02 | [facility] | 15.4 | (missing) | (missing) | | (unavailable | 17:36 [facility] | | | + + + +--------+ + + + + | Result panel 397 | + + + + + +--------+ + + | | 2022-04-02 | [facility] | 5.14 | (missing) | (missing) | | (unavailable | 17:36 [facility] | | | + + + +--------+ + + + + | Result panel 398 | + + + + + +--------+ + + | | 2022-04-02 | [facility] | 16.0 | (missing) | (missing) | | (unavailable | 17:36 [facility] | | | + + + +--------+ + + + + | Result panel 399 | + + + + + +--------+ + + | | 2022-04-02 | [facility] | 47.3 | (missing) | (missing) | | (unavailable | 17:36 [facility] | | | + + + +--------+ + + + + | Result panel 400 | + + + + + +--------+ + + | | 2022-04-02 | [facility] | 92.1 | (missing) | (missing) | | (unavailable | 17:36 [facility] | | | + + + +--------+ + + + + | Result panel 401 | + + + + + +--------+ + + | | 2022-04-02 | [facility] | 31.1 | (missing) | (missing) | | (unavailable | 17:36 [facility] | | | + + + +--------+ + + + + | Result panel 402 | + + + + + +--------+ + + | | 2022-04-02 | [facility] | 33.8 | (missing) | (missing) | | (unavailable | 17:36 [facility] | | | + + + +--------+ + + + + | Result panel 403 | + + + + + +--------+ + + | | 2022-04-02 | [facility] | 14.1 | (missing) | (missing) | | (unavailable | 17:36 [facility] | | | + + + +--------+ + + + + | Result panel 404 | + + + + + +-------+ + + | | 2022-04-02 | [facility] | 255 | (missing) | (missing) | | (unavailable | 17:36 [facility] | | | + + + +-------+ + + + + | Result panel 405 | + + + + + +--------+ + + | | 2022-04-02 | [facility] | 58.4 | (missing) | (missing) | | (unavailable | 17:36 [facility] | | | + + + +--------+ + + + + | Result panel 406 | + + + + + +--------+ + + | | 2022-04-02 | [facility] | 34.0 | (missing) | (missing) | | (unavailable | 17:36 [facility] | | | + + + +--------+ + + + + | Result panel 407 | + + + + + +-------+ + + | | 2022-04-02 | [facility] | 3.2 | (missing) | (missing) | | (unavailable | 17:36 [facility] | | | + + + +-------+ + + + + | Result panel 408 | + + + + + +-------+ + + | | 2022-04-02 | [facility] | 2.5 | (missing) | (missing) | | (unavailable | 17:36 [facility] | | | + + + +-------+ + + + + | Result panel 409 | + + + + + +-------+ + + | | 2022-04-02 | [facility] | 1.9 | (missing) | (missing) | | (unavailable | 17:36 [facility] | | | + + + +-------+ + + + + | Result panel 410 | + + + + + +-------+---------+ + | | 2022-04-02 | [facility] | 154 | mg/dL | (missing) | | (unavailable | :36 | [facility] | | | + + + +-------+---------+ + + + | Result panel 411 | + + + + + +------+---------+ + | | 2022-04-02 | [facility] | 17 | mg/dL | (missing) | | (unavailable | 17:36 [facility] | | | + + + +------+---------+ + + + | Result panel 412 | + + + + + +--------+---------+ + | | 2022-04-02 | [facility] | 1.09 | mg/dL | (missing) | | (unavailable | 17:36 [facility] | | | + + + +--------+---------+ + + + | Result panel 413 | + + + + + +------+ + + | | 2022-04-02 | [facility] | 61 | (missing) | (missing) | | (unavailable | 17:36 [facility] | | | + + + +------+ + + + + | Result panel 414 | + + + + + +---------+ + + | | 2022-04-02 | [facility] | 15.59 | (missing) | (missing) | | (unavailable | 17:36 [facility] | | | + + + +---------+ + + + + | Result panel 415 | + + + + + +-------+ + + | | 2022-04-02 | [facility] | 139 | (missing) | (missing) | | (unavailable | 17:36 [facility] | | | + + + +-------+ + + + + | Result panel 416 | + + + + + +-------+ + + | | 2022-04-02 | [facility] | 3.9 | (missing) | (missing) | | (unavailable | 17:36 [facility] | | | + + + +-------+ + + + + | Result panel 417 | + + + + + +-------+ + + | | 2022-04-02 | [facility] | 100 | (missing) | (missing) | | (unavailable | 17:36 [facility] | | | + + + +-------+ + + + + | Result panel 418 | + + + + + +------+ + + | | 2022-04-02 | [facility] | 28 | (missing) | (missing) | | (unavailable | 17:36 [facility] | | | + + + +------+ + + + + | Result panel 419 | + + + + + +--------+ + + | | 2022-04-02 | [facility] | 14.9 | (missing) | (missing) | | (unavailable | 17:36 [facility] | | | + + + +--------+ + + + + | Result panel 420 | + + + + + +-------+---------+ + | | 2022-04-02 | [facility] | 9.9 | mg/dL | (missing) | | (unavailable | 17:36 [facility] | | | + + + +-------+---------+ + + + | Result panel 421 | + + + + + +-------+ + + | | 2022-04-02 | [facility] | 8.2 | (missing) | (missing) | | (unavailable | 17:36 [facility] | | | + + + +-------+ + + + + | Result panel 422 | + + + + + +-------+ + + | | 2022-04-02 | [facility] | 3.7 | (missing) | (missing) | | (unavailable | 17:36 [facility] | | | + + + +-------+ + + + + | Result panel 423 | + + + + + +-------+ + + | | 2022-04-02 | [facility] | 4.5 | (missing) | (missing) | | (unavailable | 17:36 [facility] | | | + + + +-------+ + + + + | Result panel 424 | + + + + + +--------+ + + | | 2022-04-02 | [facility] | 0.82 | (missing) | (missing) | | (unavailable | 17:36 [facility] | | | + + + +--------+ + + + + | Result panel 425 | + + + + + +-------+ + + | | 2022-04-02 | [facility] | 0.3 | (missing) | (missing) | | (unavailable | 17:36 [facility] | | | + + + +-------+ + + + + | Result panel 426 | + + + + + +------+ + + | | 2022-04-02 | [facility] | 39 | (missing) | (missing) | | (unavailable | 17:36 [facility] | | | + + + +------+ + + + + | Result panel 427 | + + + + + +------+ + + | | 2022-04-02 | [facility] | 67 | (missing) | (missing) | | (unavailable | 17:36 [facility] | | | + + + +------+ + + + + | Result panel 428 | + + + + + +-------+ + + | | 2022-04-02 | [facility] | 117 | (missing) | (missing) | | (unavailable | 17:36 [facility] | | | + + + +-------+ + + + + | Result panel 429 | + + + + + +-------+ + + | | 2022-04-02 | [facility] | 9.4 | (missing) | (missing) | | (unavailable | 17:36 [facility] | | | + + + +-------+ + + + + | Result panel 430 | + + + + + +-------+ + + | | 2022-04-02 | [facility] | 9.4 | (missing) | (missing) | | (unavailable | 17:36 [facility] | | | + + + +-------+ + + + + | Result panel 431 | + + + + + + + + + | | 2022-04-02 | [facility] | NEGATIVE | (missing) | (missing) | | (unavailable | 17:40 [facility] | | | + + + + + + + + + | Result panel 432 | + + + + + + + + + | | 2022-04-02 | [facility] | NEGATIVE | (missing) | (missing) | | (unavailable | 17:40 [facility] | | | + + + + + + + + + | Result panel 433 | + + + + + + + + + | | 2022-04-02 | [facility] | NEGATIVE | (missing) | (missing) | | (unavailable | 17:40 [facility] | | | + + + + + + + + + | Result panel 434 | + + + + + + + + + | | 2022-04-02 | [facility] | NEGATIVE | (missing) | (missing) | | (unavailable | 17:40 [facility] | | | + + + + + + + + + | Result panel 435 | + + + + + + + + + | | 2022-04-02 | [facility] | NEGATIVE | (missing) | (missing) | | (unavailable | 17:40 [facility] | | | + + + + + + + + + | Result panel 436 | + + + + + + + + + | | 2022-04-02 | [facility] | NEGATIVE | (missing) | (missing) | | (unavailable | 17:40 [facility] | | | + + + + + + + + + | Result panel 437 | + + + + + + + + + | | 2022-04-02 | [facility] | NEGATIVE | (missing) | (missing) | | (unavailable | 17:40 | [facility] | | | | + + + + + + + + + | Result panel 438 | + + + + + + + + + | | 2022-04-02 | [facility] | NEGATIVE | (missing) | (missing) | | (unavailable | 17:40 | [facility] | | | | + + + + + + + + + | Result panel 439 | + + + + + + + + + | | 2022-04-13 | [facility] | YELLOW | (missing) | (missing) | | (unavailable | 15:50 | [facility] | | | | + + + + + + + + + | Result panel 440 | + + + + + +---------+ + + | | 2022-04-13 | [facility] | CLEAR | (missing) | (missing) | | (unavailable | 15:50 | [facility] | | | | + + + +---------+ + + + + | Result panel 441 | + + + + + + + + + | | 2022-04-13 | [facility] | NEGATIVE | (missing) | (missing) | | (unavailable | 15:50 | [facility] | | | | + + + + + + + + + | Result panel 442 | + + + + + + + + + | | 2022-04-13 | [facility] | NEGATIVE | (missing) | (missing) | | (unavailable | 15:50 | [facility] | | | | + + + + + + + + + | Result panel 443 | + + + + + + + + + | | 2022-04-13 | [facility] | NEGATIVE | (missing) | (missing) | | (unavailable | 15:50 | [facility] | | | | + + + + + + + + + | Result panel 444 | + + + + + + + + + | | 2022-04-13 | [facility] | >=1.030 | (missing) | (missing) | | (unavailable | 15:50 | [facility] | | | | + + + + + + + + + | Result panel 445 | + + + + + + + + + | | 2022-04-13 | [facility] | NEGATIVE | (missing) | (missing) | | (unavailable | 15:50 [facility] | | | | + + + + + + + + + | Result panel 446 | + + + + + +-------+ + + | | 2022-04-13 | [facility] | 6.0 | (missing) | (missing) | | (unavailable | 15:50 | [facility] | | | | + + + +-------+ + + + + | Result panel 447 | + + + + + +-------+ + + | | 2022-04-13 | [facility] | 100 | (missing) | (missing) | | (unavailable | 15:50 [facility] | | | | + + + +-------+ + + + + | Result panel 448 | + + + + + + + + + | | 2022-04-13 | [facility] | NORMAL | (missing) | (missing) | | (unavailable | 15:50 | [facility] | | | | + + + + + + + + + | Result panel 449 | + + + + + + + + + | | 2022-04-13 | [facility] | POSITIVE | (missing) | (missing) | | (unavailable | 15:50 | [facility] | | | | + + + + + + + + + | Result panel 450 | + + + + + + + + + | | 2022-04-13 | [facility] | NEGATIVE | (missing) | (missing) | | (unavailable | 15:50 | [facility] | | | | + + + + + + + + + | Result panel 451 | + + + + + +-------+ + + | | 2022-04-13 | [facility] | 2-3 | (missing) | (missing) | | (unavailable | 15:50 | [facility] | | | | + + + +-------+ + + + + | Result panel 452 | + + + + + +-------+ + + | | 2022-04-13 | [facility] | 4-6 | (missing) | (missing) | | (unavailable | 15:50 | [facility] | | | | + + + +-------+ + + + + | Result panel 453 | + + + + + + + + + | | 2022-04-13 | [facility] | SQUAMOUS 3+ | (missing) | (missing) | | (unavailable | 15:50 | [facility] | | | + + + + + + + + + | Result panel 454 | + + + + + + + + + | | 2022-04-13 | [facility] | NONE SEEN | (missing) | (missing) | | (unavailable | 15:50 | [facility] | | | + + + + + + + + + | Result panel 455 | + + + + + +------+ + + | | 2022-04-13 | [facility] | 2+ | (missing) | (missing) | | (unavailable | 15:50 [facility] | | | + + + +------+ + + + + | Result panel 456 | + + + + + + + + + | | 2022-04-13 | [facility] | NONE SEEN | (missing) | (missing) | | (unavailable | 15:50 [facility] | | | + + + + + + + + + | Result panel 457 | + + + + + +------+ + + | | 2022-04-13 | [facility] | No | (missing) | (missing) | | (unavailable | 15:50 [facility] | | | + + + +------+ + + + + | Result panel 458 | + + + + + + + + + | | 2022-04-13 | [facility] | CLEAN CATCH | (missing) | (missing) | | (unavailable | 15:50 [facility] | | | + + + + + + + + + | Result panel 459 | + + + + + +--------+ + + | | 2022-04-29 | [facility] | 14.0 | (missing) | (missing) | | (unavailable | 09:49 | [facility] | | | + + + +--------+ + + + + | Result panel 460 | + + + + + +--------+ + + | | 2022-04-29 | [facility] | 5.02 | (missing) | (missing) | | (unavailable | 09:49 | [facility] | | | + + + +--------+ + + + + | Result panel 461 | + + + + + +--------+ + + | | 2022-04-29 | [facility] | 15.5 | (missing) | (missing) | | (unavailable | 09:49 [facility] | | | + + + +--------+ + + + + | Result panel 462 | + + + + + +--------+ + + | | 2022-04-29 | [facility] | 46.4 | (missing) | (missing) | | (unavailable | 09:49 [facility] | | | + + + +--------+ + + + + | Result panel 463 | + + + + + +--------+ + + | | 2022-04-29 | [facility] | 92.3 | (missing) | (missing) | | (unavailable | 09:49 [facility] | | | + + + +--------+ + + + + | Result panel 464 | + + + + + +--------+ + + | | 2022-04-29 | [facility] | 30.9 | (missing) | (missing) | | (unavailable | 09:49 [facility] | | | + + + +--------+ + + + + | Result panel 465 | + + + + + +--------+ + + | | 2022-04-29 | [facility] | 33.4 | (missing) | (missing) | | (unavailable | 09:49 [facility] | | | + + + +--------+ + + + + | Result panel 466 | + + + + + +--------+ + + | | 2022-04-29 | [facility] | 14.1 | (missing) | (missing) | | (unavailable | 09:49 [facility] | | | + + + +--------+ + + + + | Result panel 467 | + + + + + +-------+ + + | | 2022-04-29 | [facility] | 340 | (missing) | (missing) | | (unavailable | 09:49 | [facility] | | | + + + +-------+ + + + + | Result panel 468 | + + + + + +--------+ + + | | 2022-04-29 | [facility] | 65.8 | (missing) | (missing) | | (unavailable | 09:49 | [facility] | | | + + + +--------+ + + + + | Result panel 469 | + + + + + +--------+ + + | | 2022-04-29 | [facility] | 29.3 | (missing) | (missing) | | (unavailable | 09:49 [facility] | | | + + + +--------+ + + + + | Result panel 470 | + + + + + +-------+ + + | | 2022-04-29 | [facility] | 2.6 | (missing) | (missing) | | (unavailable | 09:49 [facility] | | | + + + +-------+ + + + + | Result panel 471 | + + + + + +-------+ + + | | 2022-04-29 | [facility] | 1.5 | (missing) | (missing) | | (unavailable | 09:49 [facility] | | | + + + +-------+ + + + + | Result panel 472 | + + + + + +-------+ + + | | 2022-04-29 | [facility] | 0.8 | (missing) | (missing) | | (unavailable | 09:49 [facility] | | | + + + +-------+ + + + + | Result panel 473 | + + + + + +-------+---------+ + | | 2022-04-29 | [facility] | 178 | mg/dL | (missing) | | (unavailable | 09:49 [facility] | | | + + + +-------+---------+ + + + | Result panel 474 | + + + + + +------+---------+ + | | 2022-04-29 | [facility] | 17 | mg/dL | (missing) | | (unavailable | 09:49 [facility] | | | + + + +------+---------+ + + + | Result panel 475 | + + + + + +--------+---------+ + | | 2022-04-29 | [facility] | 0.99 | mg/dL | (missing) | | (unavailable | 09:49 [facility] | | | + + + +--------+---------+ + + + | Result panel 476 | + + + + + +------+ + + | | 2022-04-29 | [facility] | 69 | (missing) | (missing) | | (unavailable | 09:49 [facility] | | | + + + +------+ + + + + | Result panel 477 | + + + + + +---------+ + + | | 2022-04-29 | [facility] | 17.17 | (missing) | (missing) | | (unavailable | 09:49 [facility] | | | + + + +---------+ + + + + | Result panel 478 | + + + + + +-------+ + + | | 2022-04-29 | [facility] | 137 | (missing) | (missing) | | (unavailable | 09:49 [facility] | | | + + + +-------+ + + + + | Result panel 479 | + + + + + +-------+ + + | | 2022-04-29 | [facility] | 4.0 | (missing) | (missing) | | (unavailable | 09:49 [facility] | | | + + + +-------+ + + + + | Result panel 480 | + + + + + +------+ + + | | 2022-04-29 | [facility] | 99 | (missing) | (missing) | | (unavailable | 09:49 [facility] | | | + + + +------+ + + + + | Result panel 481 | + + + + + +------+ + + | | 2022-04-29 | [facility] | 26 | (missing) | (missing) | | (unavailable | 09:49 [facility] | | | + + + +------+ + + + + | Result panel 482 | + + + + + +--------+ + + | | 2022-04-29 | [facility] | 16.0 | (missing) | (missing) | | (unavailable | 09:49 [facility] | | | + + + +--------+ + + + + | Result panel 483 | + + + + + +-------+---------+ + | | 2022-04-29 | [facility] | 9.5 | mg/dL | (missing) | | (unavailable | 09:49 [facility] | | | + + + +-------+---------+ + + + | Result panel 484 | + + + + + +-------+ + + | | 2022-04-29 | [facility] | 7.7 | (missing) | (missing) | | (unavailable | 09:49 [facility] | | | + + + +-------+ + + + + | Result panel 485 | + + + + + +-------+ + + | | 2022-04-29 | [facility] | 3.8 | (missing) | (missing) | | (unavailable | 09:49 [facility] | | | + + + +-------+ + + + + | Result panel 486 | + + + + + +-------+ + + | | 2022-04-29 | [facility] | 3.9 | (missing) | (missing) | | (unavailable | 09:49 [facility] | | | + + + +-------+ + + + + | Result panel 487 | + + + + + +--------+ + + | | 2022-04-29 | [facility] | 0.97 | (missing) | (missing) | | (unavailable | 09:49 [facility] | | | + + + +--------+ + + + + | Result panel 488 | + + + + + +-------+ + + | | 2022-04-29 | [facility] | 0.5 | (missing) | (missing) | | (unavailable | 09:49 [facility] | | | + + + +-------+ + + + + | Result panel 489 | + + + + + +------+ + + | | 2022-04-29 | [facility] | 38 | (missing) | (missing) | | (unavailable | 09:49 [facility] | | | + + + +------+ + + + + | Result panel 490 | + + + + + +------+ + + | | 2022-04-29 | [facility] | 58 | (missing) | (missing) | | (unavailable | 09:49 [facility] | | | + + + +------+ + + + + | Result panel 491 | + + + + + +-------+ + + | | 2022-04-29 | [facility] | 126 | (missing) | (missing) | | (unavailable | 09:49 | [facility] | | | + + + +-------+ + + + + | Result panel 492 | + + + + + +------+ + + | | 2022-04-29 | [facility] | 64 | (missing) | (missing) | | (unavailable | 09:49 [facility] | | | + + + +------+ + + + + | Result panel 493 | + + + + + +--------+ + + | | 2022-04-29 | [facility] | 14.0 | (missing) | (missing) | | (unavailable | 09:49:08 [facility] | | | + + + +--------+ + + + + | Result panel 494 | + + + + + +--------+ + + | | 2022-04-29 | [facility] | 5.02 | (missing) | (missing) | | (unavailable | 09:49:08 [facility] | | | + + + +--------+ + + + + | Result panel 495 | + + + + + +--------+ + + | | 2022-04-29 | [facility] | 15.5 | (missing) | (missing) | | (unavailable | 09:49:08 [facility] | | | + + + +--------+ + + + + | Result panel 496 | + + + + + +--------+ + + | | 2022-04-29 | [facility] | 46.4 | (missing) | (missing) | | (unavailable | 09:49:08 [facility] | | | + + + +--------+ + + + + | Result panel 497 | + + + + + +--------+ + + | | 2022-04-29 | [facility] | 92.3 | (missing) | (missing) | | (unavailable | 09:49:08 [facility] | | | + + + +--------+ + + + + | Result panel 498 | + + + + + +--------+ + + | | 2022-04-29 | [facility] | 30.9 | (missing) | (missing) | | (unavailable | 09:49:08 [facility] | | + + + +--------+ + + + + | Result panel 499 | + + + + + +--------+ + + | | 2022-04-29 | [facility] | 33.4 | (missing) | (missing) | | (unavailable | 09:49:08 [facility] | | | + + + +--------+ + + + + | Result panel 500 | + + + + + +--------+ + + | | 2022-04-29 | [facility] | 14.1 | (missing) | (missing) | | (unavailable | 09:49:08 [facility] | | | + + + +--------+ + + + + | Result panel 501 | + + + + + +-------+ + + | | 2022-04-29 | [facility] | 340 | (missing) | (missing) | | (unavailable | 09:49:08 [facility] | | + + + +-------+ + + + + | Result panel 502 | + + + + + +--------+ + + | | 2022-04-29 | [facility] | 65.8 | (missing) | (missing) | | (unavailable | 09:49:08 [facility] | | + + + +--------+ + + + + | Result panel 503 | + + + + + +--------+ + + | | 2022-04-29 | [facility] | 29.3 | (missing) | (missing) | | (unavailable | 09:49:08 [facility] | | + + + +--------+ + + + + | Result panel 504 | + + + + + +-------+ + + | | 2022-04-29 | [facility] | 2.6 | (missing) | (missing) | | (unavailable | 09:49:08 [facility] | | | + + + +-------+ + + + + | Result panel 505 | + + + + + +-------+ + + | | 2022-04-29 | [facility] | 1.5 | (missing) | (missing) | | (unavailable | 09:49:08 [facility] | | | + + + +-------+ + + + + | Result panel 506 | + + + + + +-------+ + + | | 2022-04-29 | [facility] | 0.8 | (missing) | (missing) | | (unavailable | 09:49:08 [facility] | | | + + + +-------+ + + + + | Result panel 507 | + + + + + +-------+---------+ + | | 2022-04-29 | [facility] | 178 | mg/dL | (missing) | | (unavailable | 09:49:08 | [facility] | | | + + + +-------+---------+ + + + | Result panel 508 | + + + + + +------+---------+ + | | 2022-04-29 | [facility] | 17 | mg/dL | (missing) | | (unavailable | 09:49:08 [facility] | | | + + + +------+---------+ + + + | Result panel 509 | + + + + + +--------+---------+ + | | 2022-04-29 | [facility] | 0.99 | mg/dL | (missing) | | (unavailable | 09:49:08 [facility] | | | + + + +--------+---------+ + + + | Result panel 510 | + + + + + +------+ + + | | 2022-04-29 | [facility] | 69 | (missing) | (missing) | | (unavailable | 09:49:08 [facility] | | | + + + +------+ + + + + | Result panel 511 | + + + + + +---------+ + + | | 2022-04-29 | [facility] | 17.17 | (missing) | (missing) | | (unavailable | 09:49:08 [facility] | | | + + + +---------+ + + + + | Result panel 512 | + + + + + +-------+ + + | | 2022-04-29 | [facility] | 137 | (missing) | (missing) | | (unavailable | 09:49:08 [facility] | | | + + + +-------+ + + + + | Result panel 513 | + + + + + +-------+ + + | | 2022-04-29 | [facility] | 4.0 | (missing) | (missing) | | (unavailable | 09:49:08 [facility] | | | + + + +-------+ + + + + | Result panel 514 | + + + + + +------+ + + | | 2022-04-29 | [facility] | 99 | (missing) | (missing) | | (unavailable | 09:49:08 [facility] | | | + + + +------+ + + + + | Result panel 515 | + + + + + +------+ + + | | 2022-04-29 | [facility] | 26 | (missing) | (missing) | | (unavailable | 09:49:08 [facility] | | | + + + +------+ + + + + | Result panel 516 | + + + + + +--------+ + + | | 2022-04-29 | [facility] | 16.0 | (missing) | (missing) | | (unavailable | 09:49:08 [facility] | | | + + + +--------+ + + + + | Result panel 517 | + + + + + +-------+---------+ + | | 2022-04-29 | [facility] | 9.5 | mg/dL | (missing) | | (unavailable | 09:49:08 [facility] | | | + + + +-------+---------+ + + + | Result panel 518 | + + + + + +-------+ + + | | 2022-04-29 | [facility] | 7.7 | (missing) | (missing) | | (unavailable | 09:49:08 [facility] | | | + + + +-------+ + + + + | Result panel 519 | + + + + + +-------+ + + | | 2022-04-29 | [facility] | 3.8 | (missing) | (missing) | | (unavailable | 09:49:08 [facility] | | | + + + +-------+ + + + + | Result panel 520 | + + + + + +-------+ + + | | 2022-04-29 | [facility] | 3.9 | (missing) | (missing) | | (unavailable | 09:49:08 [facility] | | | + + + +-------+ + + + + | Result panel 521 | + + + + + +--------+ + + | | 2022-04-29 | [facility] | 0.97 | (missing) | (missing) | | (unavailable | 09:49:08 [facility] | | | + + + +--------+ + + + + | Result panel 522 | + + + + + +-------+ + + | | 2022-04-29 | [facility] | 0.5 | (missing) | (missing) | | (unavailable | 09:49:08 [facility] | | | + + + +-------+ + + + + | Result panel 523 | + + + + + +------+ + + | | 2022-04-29 | [facility] | 38 | (missing) | (missing) | | (unavailable | 09:49:08 [facility] | | | + + + +------+ + + + + | Result panel 524 | + + + + + +------+ + + | | 2022-04-29 | [facility] | 58 | (missing) | (missing) | | (unavailable | 09:49:08 [facility] | | | + + + +------+ + + + + | Result panel 525 | + + + + + +-------+ + + | | 2022-04-29 | [facility] | 126 | (missing) | (missing) | | (unavailable | 09:49:08 [facility] | | | + + + +-------+ + + + + | Result panel 526 | + + + + + +------+ + + | | 2022-04-29 | [facility] | 64 | (missing) | (missing) | | (unavailable | 09:49:08 [facility] | | | + + + +------+ + + + + | Result panel 527 | + + + + + + + + + | | 2022-04-29 | [facility] | NEGATIVE | (missing) | (missing) | | (unavailable | 09:55 | [facility] | | | + + + + + + + + + | Result panel 528 | + + + + + + + + + | | 2022-04-29 | [facility] | NEGATIVE | (missing) | (missing) | | (unavailable | 09:55 | [facility] | | | + + + + + + + + + | Result panel 529 | + + + + + + + + + | | 2022-04-29 | [facility] | NEGATIVE | (missing) | (missing) | | (unavailable | 09:55 | [facility] | | | + + + + + + + + + | Result panel 530 | + + + + + + + + + | | 2022-04-29 | [facility] | NEGATIVE | (missing) | (missing) | | (unavailable | 09:55 | [facility] | | | + + + + + + + + + | Result panel 531 | + + + + + + + + + | | 2022-04-29 | [facility] | YELLOW | (missing) | (missing) | | (unavailable | 14:14 | [facility] | | | + + + + + + + + + | Result panel 532 | + + + + + +---------+ + + | | 2022-04-29 | [facility] | CLEAR | (missing) | (missing) | | (unavailable | 14:14 | [facility] | | | + + + +---------+ + + + + | Result panel 533 | + + + + + + + + + | | 2022-04-29 | [facility] | NEGATIVE | (missing) | (missing) | | (unavailable | 14:14 | [facility] | | | + + + + + + + + + | Result panel 534 | + + + + + + + + + | | 2022-04-29 | [facility] | NEGATIVE | (missing) | (missing) | | (unavailable | 14:14 | [facility] | | | + + + + + + + + + | Result panel 535 | + + + + + + + + + | | 2022-04-29 | [facility] | NEGATIVE | (missing) | (missing) | | (unavailable | 14:14 | [facility] | | | + + + + + + + + + | Result panel 536 | + + + + + +---------+ + + | | 2022-04-29 | [facility] | 1.020 | (missing) | (missing) | | (unavailable | 14:14 | [facility] | | | + + + +---------+ + + + + | Result panel 537 | + + + + + + + + + | | 2022-04-29 | [facility] | NEGATIVE | (missing) | (missing) | | (unavailable | 14:14 | [facility] | | | + + + + + + + + + | Result panel 538 | + + + + + +-------+ + + | | 2022-04-29 | [facility] | 6.5 | (missing) | (missing) | | (unavailable | 14:14 | [facility] | | | + + + +-------+ + + + + | Result panel 539 | + + + + + +-------+ + + | | 2022-04-29 | [facility] | 100 | (missing) | (missing) | | (unavailable | 14:14 | [facility] | | | + + + +-------+ + + + + | Result panel 540 | + + + + + + + + + | | 2022-04-29 | [facility] | NORMAL | (missing) | (missing) | | (unavailable | 14:14 | [facility] | | | + + + + + + + + + | Result panel 541 | + + + + + + + + + | | 2022-04-29 | [facility] | POSITIVE | (missing) | (missing) | | (unavailable | 14:14 | [facility] | | | + + + + + + + + + | Result panel 542 | + + + + + + + + + | | 2022-04-29 | [facility] | NEGATIVE | (missing) | (missing) | | (unavailable | 14:14 | [facility] | | | + + + + + + + + + | Result panel 543 | + + + + + +-------+ + + | | 2022-04-29 | [facility] | 0-1 | (missing) | (missing) | | (unavailable | 14:14 | [facility] | | | + + + +-------+ + + + + | Result panel 544 | + + + + + +-------+ + + | | 2022-04-29 | [facility] | 2-3 | (missing) | (missing) | | (unavailable | 14:14 | [facility] | | | + + + +-------+ + + + + | Result panel 545 | + + + + + + + + + | | 2022-04-29 | [facility] | SQUAMOUS 1+ | (missing) | (missing) | | (unavailable | 14:14 | [facility] | | | + + + + + + + + + | Result panel 546 | + + + + + + + + + | | 2022-04-29 | [facility] | NONE SEEN | (missing) | (missing) | | (unavailable | 14:14 | [facility] | | | + + + + + + + + + | Result panel 547 | + + + + + +------+ + + | | 2022-04-29 | [facility] | 1+ | (missing) | (missing) | | (unavailable | 14:14 | [facility] | | | + + + +------+ + + + + | Result panel 548 | + + + + + + + + + | | 2022-04-29 | [facility] | NONE SEEN | (missing) | (missing) | | (unavailable | 14:14 | [facility] | | | + + + + + + + + + | Result panel 549 | + + + + + +-------+ + + | | 2022-04-29 | [facility] | Yes | (missing) | (missing) | | (unavailable | 14:14 | [facility] | | | + + + +-------+ + + + + | Result panel 550 | + + + + + + + + + | | 2022-04-29 | [facility] | CLEAN CATCH | (missing) | (missing) | | (unavailable | 14:14 | [facility] | | | + + + + + + + + + | Result panel 551 | + + + + + + + + + | | 2022-04-29 | [facility] | YELLOW | (missing) | (missing) | | (unavailable | 14:14:08 | [facility] | | | + + + + + + + + + | Result panel 552 | + + + + + +---------+ + + | | 2022-04-29 | [facility] | CLEAR | (missing) | (missing) | | (unavailable | 14:14:08 [facility] | | | + + + +---------+ + + + + | Result panel 553 | + + + + + + + + + | | 2022-04-29 | [facility] | NEGATIVE | (missing) | (missing) | | (unavailable | 14:14:08 [facility] | | | + + + + + + + + + | Result panel 554 | + + + + + + + + + | | 2022-04-29 | [facility] | NEGATIVE | (missing) | (missing) | | (unavailable | 14:14:08 [facility] | | | + + + + + + + + + | Result panel 555 | + + + + + + + + + | | 2022-04-29 | [facility] | NEGATIVE | (missing) | (missing) | | (unavailable | 14:14:08 [facility] | | | + + + + + + + + + | Result panel 556 | + + + + + +---------+ + + | | 2022-04-29 | [facility] | 1.020 | (missing) | (missing) | | (unavailable | 14:14:08 [facility] | | | + + + +---------+ + + + + | Result panel 557 | + + + + + + + + + | | 2022-04-29 | [facility] | NEGATIVE | (missing) | (missing) | | (unavailable | 14:14:08 [facility] | | | + + + + + + + + + | Result panel 558 | + + + + + +-------+ + + | | 2022-04-29 | [facility] | 6.5 | (missing) | (missing) | | (unavailable | 14:14:08 [facility] | | | + + + +-------+ + + + + | Result panel 559 | + + + + + +-------+ + + | | 2022-04-29 | [facility] | 100 | (missing) | (missing) | | (unavailable | 14:14:08 [facility] | | | + + + +-------+ + + + + | Result panel 560 | + + + + + + + + + | | 2022-04-29 | [facility] | NORMAL | (missing) | (missing) | | (unavailable | 14:14:08 [facility] | | | + + + + + + + + + | Result panel 561 | + + + + + + + + + | | 2022-04-29 | [facility] | POSITIVE | (missing) | (missing) | | (unavailable | 14:14:08 [facility] | | | + + + + + + + + + | Result panel 562 | + + + + + + + + + | | 2022-04-29 | [facility] | NEGATIVE | (missing) | (missing) | | (unavailable | 14:14:08 [facility] | | | | + + + + + + + + + | Result panel 563 | + + + + + +-------+ + + | | 2022-04-29 | [facility] | 0-1 | (missing) | (missing) | | (unavailable | 14:14:08 [facility] | | | | + + + +-------+ + + + + | Result panel 564 | + + + + + +-------+ + + | | 2022-04-29 | [facility] | 2-3 | (missing) | (missing) | | (unavailable | 14:14:08 [facility] | | | | + + + +-------+ + + + + | Result panel 565 | + + + + + + + + + | | 2022-04-29 | [facility] | SQUAMOUS 1+ | (missing) | (missing) | | (unavailable | 14:14:08 [facility] | | | | + + + + + + + + + | Result panel 566 | + + + + + + + + + | | 2022-04-29 | [facility] | NONE SEEN | (missing) | (missing) | | (unavailable | 14:14:08 [facility] | | | | + + + + + + + + + | Result panel 567 | + + + + + +------+ + + | | 2022-04-29 | [facility] | 1+ | (missing) | (missing) | | (unavailable | 14:14:08 [facility] | | | | + + + +------+ + + + + | Result panel 568 | + + + + + + + + + | | 2022-04-29 | [facility] | NONE SEEN | (missing) | (missing) | | (unavailable | 14:14:08 [facility] | | | | + + + + + + + + + | Result panel 569 | + + + + + +-------+ + + | | 2022-04-29 | [facility] | Yes | (missing) | (missing) | | (unavailable | 14:14:08 [facility] | | | | + + + +-------+ + + + + | Result panel 570 | + + + + + + + + + | | 2022-04-29 | [facility] | CLEAN CATCH | (missing) | (missing) | | (unavailable | 14:14:08 [facility] | | | | + + + + + + + + + | Result panel 571 | + + + + + + + + + | | 2022-04-29 | [facility] | YELLOW | (missing) | (missing) | | (unavailable | 14:14:08 [facility] | | | | + + + + + + + + + | Result panel 572 | + + + + + +---------+ + + | | 2022-04-29 | [facility] | CLEAR | (missing) | (missing) | | (unavailable | 14:14:08 [facility] | | | | + + + +---------+ + + + + | Result panel 573 | + + + + + + + + + | | 2022-04-29 | [facility] | NEGATIVE | (missing) | (missing) | | (unavailable | 14:14:08 [facility] | | | | + + + + + + + + + | Result panel 574 | + + + + + + + + + | | 2022-04-29 | [facility] | NEGATIVE | (missing) | (missing) | | (unavailable | 14:14:08 [facility] | | | | + + + + + + + + + | Result panel 575 | + + + + + + + + + | | 2022-04-29 | [facility] | NEGATIVE | (missing) | (missing) | | (unavailable | 14:14:08 [facility] | | | | + + + + + + + + + | Result panel 576 | + + + + + +---------+ + + | | 2022-04-29 | [facility] | 1.020 | (missing) | (missing) | | (unavailable | 14:14:08 | [facility] | | | | + + + +---------+ + + + + | Result panel 577 | + + + + + + + + + | | 2022-04-29 | [facility] | NEGATIVE | (missing) | (missing) | | (unavailable | 14:14:08 [facility] | | | | + + + + + + + + + | Result panel 578 | + + + + + +-------+ + + | | 2022-04-29 | [facility] | 6.5 | (missing) | (missing) | | (unavailable | 14:14:08 | [facility] | | | [facility] | | | | + + + +-------+ + + + + | Result panel 579 | + + + + + +-------+ + + | | 2022-04-29 | [facility] | 100 | (missing) | (missing) | | (unavailable | 14::08 | [facility] | | | | + + + +-------+ + + + + | Result panel 580 | + + + + + + + + + | | 2022-04-29 | [facility] | NORMAL | (missing) | (missing) | | (unavailable | 14:14:08 | [facility] | | | | + + + + + + + + + | Result panel 581 | + + + + + + + + + | | 2022-04-29 | [facility] | POSITIVE | (missing) | (missing) | | (unavailable | 14:14:08 | [facility] | | | | + + + + + + + + + | Result panel 582 | + + + + + + + + + | | 2022-04-29 | [facility] | NEGATIVE | (missing) | (missing) | | (unavailable | 14:14:08 | [facility] | | | + + + + + + + + + | Result panel 583 | + + + + + +-------+ + + | | 2022-04-29 | [facility] | 0-1 | (missing) | (missing) | | (unavailable | 14:14:08 [facility] | | | + + + +-------+ + + + + | Result panel 584 | + + + + + +-------+ + + | | 2022-04-29 | [facility] | 2-3 | (missing) | (missing) | | (unavailable | 14:14:08 [facility] | | | + + + +-------+ + + + + | Result panel 585 | + + + + + + + + + | | 2022-04-29 | [facility] | SQUAMOUS 1+ | (missing) | (missing) | | (unavailable | 14:14:08 [facility] | | | + + + + + + + + + | Result panel 586 | + + + + + + + + + | | 2022-04-29 | [facility] | NONE SEEN | (missing) | (missing) | | (unavailable | 14:14:08 [facility] | | | + + + + + + + + + | Result panel 587 | + + + + + +------+ + + | | 2022-04-29 | [facility] | 1+ | (missing) | (missing) | | (unavailable | 14:14:08 [facility] | | | + + + +------+ + + + + | Result panel 588 | + + + + + + + + + | | 2022-04-29 | [facility] | NONE SEEN | (missing) | (missing) | | (unavailable | 14:14:08 [facility] | | | + + + + + + + + + | Result panel 589 | + + + + + +-------+ + + | | 2022-04-29 | [facility] | Yes | (missing) | (missing) | | (unavailable | 14:14:08 [facility] | | | + + + +-------+ + + + + | Result panel 590 | + + + + + + + + + | | 2022-04-29 | [facility] | CLEAN CATCH | (missing) | (missing) | | (unavailable | 14:14:08 | [facility] | | | + + + + + + + + + | Result panel 591 | + + + + + + + + + | | 2022-05-12 | [facility] | NEGATIVE | (missing) | (missing) | | (unavailable | 16:35:08 | [facility] | | | + + + + + + + + + | Result panel 592 | + + + + + + + + + | | 2022-05-12 | [facility] | NEGATIVE | (missing) | (missing) | | (unavailable | 16:35:08 | [facility] | | | + + + + + + + + + | Result panel 593 | + + + + + + + + + | | 2022-05-12 | [facility] | NEGATIVE | (missing) | (missing) | | (unavailable | 16:35:08 [facility] | | | + + + + + + + + + | Result panel 594 | + + + + + + + + + | | 2022-05-12 | [facility] | NEGATIVE | (missing) | (missing) | | (unavailable | 16:35:08 [facility] | | | + + + + + + + + + | Result panel 595 | + + + + + + + + + | | 2022-05-12 | [facility] | NEGATIVE | (missing) | (missing) | | (unavailable | 16:35:08 [facility] | | | + + + + + + + + + | Result panel 596 | + + + + + + + + + | | 2022-05-12 | [facility] | NEGATIVE | (missing) | (missing) | | (unavailable | 16:35:08 [facility] | | | + + + + + + + + + | Result panel 597 | + + + + + + + + + | | 2022-05-12 | [facility] | NEGATIVE | (missing) | (missing) | | (unavailable | 16:35:08 [facility] | | | + + + + + + + + + | Result panel 598 | + + + + + + + + + | | 2022-05-12 | [facility] | NEGATIVE | (missing) | (missing) | | (unavailable | 16:35:08 [facility] | | | + + + + + + + + + | Result panel 599 | + + + + + + + + + | | 2022-05-12 | [facility] | NEGATIVE | (missing) | (missing) | | (unavailable | 16:35:08 [facility] | | | + + + + + + + + + | Result panel 600 | + + + + + + + + + | | 2022-05-12 | [facility] | NEGATIVE | (missing) | (missing) | | (unavailable | 16:35:08 [facility] | | | + + + + + + + + + | Result panel 601 | + + + + + + + + + | | 2022-05-12 | [facility] | NEGATIVE | (missing) | (missing) | | (unavailable | 16:35:08 [facility] | | | + + + + + + + + + | Result panel 602 | + + + + + + + + + | | 2022-05-12 | [facility] | NEGATIVE | (missing) | (missing) | | (unavailable | 16:35:08 [facility] | | | + + + + + + + + + | Result panel 603 | + + + + + + + + + | | 2022-05-12 | [facility] | NEGATIVE | (missing) | (missing) | | (unavailable | 16:35:08 [facility] | | | + + + + + + + + + | Result panel 604 | + + + + + + + + + | | 2022-05-12 | [facility] | NEGATIVE | (missing) | (missing) | | (unavailable | 16:35:08 [facility] | | | + + + + + + + + + | Result panel 605 | + + + + + + + + + | | 2022-05-12 | [facility] | NEGATIVE | (missing) | (missing) | | (unavailable | 16:35:08 [facility] | | | + + + + + + + + + | Result panel 606 | + + + + + + + + + | | 2022-05-12 | [facility] | NEGATIVE | (missing) | (missing) | | (unavailable | 16:35:08 [facility] | | | + + + + + + + + + | Result panel 607 | + + + + + +--------+ + + | | 2022-05-13 | [facility] | 11.8 | (missing) | (missing) | | (unavailable | 13:55:08 [facility] | | | + + + +--------+ + + + + | Result panel 608 | + + + + + +--------+ + + | | 2022-05-13 | [facility] | 4.85 | (missing) | (missing) | | (unavailable | 13:55:08 [facility] | | | + + + +--------+ + + + + | Result panel 609 | + + + + + +--------+ + + | | 2022-05-13 | [facility] | 14.9 | (missing) | (missing) | | (unavailable | 13:55:08 [facility] | | | + + + +--------+ + + + + | Result panel 610 | + + + + + +--------+ + + | | 2022-05-13 | [facility] | 45.1 | (missing) | (missing) | | (unavailable | 13:55:08 [facility] | | | + + + +--------+ + + + + | Result panel 611 | + + + + + +--------+ + + | | 2022-05-13 | [facility] | 93.1 | (missing) | (missing) | | (unavailable | 13:55:08 [facility] | | | + + + +--------+ + + + + | Result panel 612 | + + + + + +--------+ + + | | 2022-05-13 | [facility] | 30.7 | (missing) | (missing) | | (unavailable | 13:55:08 [facility] | | | + + + +--------+ + + + + | Result panel 613 | + + + + + +--------+ + + | | 2022-05-13 | [facility] | 33.0 | (missing) | (missing) | | (unavailable | 13:55:08 [facility] | | | + + + +--------+ + + + + | Result panel 614 | + + + + + +--------+ + + | | 2022-05-13 | [facility] | 14.1 | (missing) | (missing) | | (unavailable | 13:55:08 [facility] | | | + + + +--------+ + + + + | Result panel 615 | + + + + + +-------+ + + | | 2022-05-13 | [facility] | 267 | (missing) | (missing) | | (unavailable | 13:55:08 [facility] | | | + + + +-------+ + + + + | Result panel 616 | + + + + + +--------+ + + | | 2022-05-13 | [facility] | 65.2 | (missing) | (missing) | | (unavailable | 13:55:08 [facility] | | | + + + +--------+ + + + + | Result panel 617 | + + + + + +--------+ + + | | 2022-05-13 | [facility] | 26.3 | (missing) | (missing) | | (unavailable | 13:55:08 [facility] | | | + + + +--------+ + + + + | Result panel 618 | + + + + + +-------+ + + | | 2022-05-13 | [facility] | 4.7 | (missing) | (missing) | | (unavailable | 13:55:08 [facility] | | | + + + +-------+ + + + + | Result panel 619 | + + + + + +-------+ + + | | 2022-05-13 | [facility] | 2.9 | (missing) | (missing) | | (unavailable | 13:55:08 [facility] | | | + + + +-------+ + + + + | Result panel 620 | + + + + + +-------+ + + | | 2022-05-13 | [facility] | 0.9 | (missing) | (missing) | | (unavailable | 13:55:08 [facility] | | | + + + +-------+ + + + + | Result panel 621 | + + + + + +-------+---------+ + | | 2022-05-13 | [facility] | 147 | mg/dL | (missing) | | (unavailable | 13:55:08 [facility] | | | + + + +-------+---------+ + + + | Result panel 622 | + + + + + +------+---------+ + | | 2022-05-13 | [facility] | 17 | mg/dL | (missing) | | (unavailable | 13:55:08 [facility] | | | + + + +------+---------+ + + + | Result panel 623 | + + + + + +--------+---------+ + | | 2022-05-13 | [facility] | 1.02 | mg/dL | (missing) | | (unavailable | 13:55:08 [facility] | | | + + + +--------+---------+ + + + | Result panel 624 | + + + + + +------+ + + | | 2022-05-13 | [facility] | 66 | (missing) | (missing) | | (unavailable | 13:55:08 [facility] | | | + + + +------+ + + + + | Result panel 625 | + + + + + +---------+ + + | | 2022-05-13 | [facility] | 16.66 | (missing) | (missing) | | (unavailable | 13:55:08 [facility] | | | + + + +---------+ + + + + | Result panel 626 | + + + + + +-------+ + + | | 2022-05-13 | [facility] | 137 | (missing) | (missing) | | (unavailable | 13:55:08 [facility] | | | + + + +-------+ + + + + | Result panel 627 | + + + + + +-------+ + + | | 2022-05-13 | [facility] | 4.3 | (missing) | (missing) | | (unavailable | 13:55:08 [facility] | | | + + + +-------+ + + + + | Result panel 628 | + + + + + +-------+ + + | | 2022-05-13 | [facility] | 102 | (missing) | (missing) | | (unavailable | 13:55:08 [facility] | | | + + + +-------+ + + + + | Result panel 629 | + + + + + +------+ + + | | 2022-05-13 | [facility] | 29 | (missing) | (missing) | | (unavailable | 13:55:08 [facility] | | | + + + +------+ + + + + | Result panel 630 | + + + + + +--------+ + + | | 2022-05-13 | [facility] | 10.3 | (missing) | (missing) | | (unavailable | 13:55:08 [facility] | | | + + + +--------+ + + + + | Result panel 631 | + + + + + +-------+---------+ + | | 2022-05-13 | [facility] | 9.5 | mg/dL | (missing) | | (unavailable | 13:55:08 [facility] | | | + + + +-------+---------+ + + + | Result panel 632 | + + + + + +-------+---------+ + | | 2022-05-13 | [facility] | 1.7 | mg/dL | (missing) | | (unavailable | 13:55:08 [facility] | | | + + + +-------+---------+ + + + | Result panel 633 | + + + + + +-------+ + + | | 2022-05-13 | [facility] | 7.4 | (missing) | (missing) | | (unavailable | 13:55:08 [facility] | | | + + + +-------+ + + + + | Result panel 634 | + + + + + +-------+ + + | | 2022-05-13 | [facility] | 3.5 | (missing) | (missing) | | (unavailable | 13:55:08 [facility] | | | + + + +-------+ + + + + | Result panel 635 | + + + + + +-------+ + + | | 2022-05-13 | [facility] | 3.9 | (missing) | (missing) | | (unavailable | 13:55:08 [facility] | | | + + + +-------+ + + + + | Result panel 636 | + + + + + +--------+ + + | | 2022-05-13 | [facility] | 0.90 | (missing) | (missing) | | (unavailable | 13:55:08 [facility] | | | + + + +--------+ + + + + | Result panel 637 | + + + + + +-------+ + + | | 2022-05-13 | [facility] | 0.4 | (missing) | (missing) | | (unavailable | 13:55:08 [facility] | | | + + + +-------+ + + + + | Result panel 638 | + + + + + +------+ + + | | 2022-05-13 | [facility] | 53 | (missing) | (missing) | | (unavailable | 13:55:08 [facility] | | | + + + +------+ + + + + | Result panel 639 | + + + + + +------+ + + | | 2022-05-13 | [facility] | 77 | (missing) | (missing) | | (unavailable | 13:55:08 [facility] | | | + + + +------+ + + + + | Result panel 640 | + + + + + +-------+ + + | | 2022-05-13 | [facility] | 118 | (missing) | (missing) | | (unavailable | 13:55:08 [facility] | | | + + + +-------+ + + + + | Result panel 641 | + + + + + +------+ + + | | 2022-05-13 | [facility] | 62 | (missing) | (missing) | | (unavailable | 13:55:08 [facility] | | | + + + +------+ + + + + | Result panel 642 | + + + + + +--------+ + + | | 2022-05-13 | [facility] | 11.8 | (missing) | (missing) | | (unavailable | 13:55:08 [facility] | | | + + + +--------+ + + + + | Result panel 643 | + + + + + +--------+ + + | | 2022-05-13 | [facility] | 4.85 | (missing) | (missing) | | (unavailable | 13:55:08 [facility] | | | + + + +--------+ + + + + | Result panel 644 | + + + + + +--------+ + + | | 2022-05-13 | [facility] | 14.9 | (missing) | (missing) | | (unavailable | 13:55:08 [facility] | | | + + + +--------+ + + + + | Result panel 645 | + + + + + +--------+ + + | | 2022-05-13 | [facility] | 45.1 | (missing) | (missing) | | (unavailable | 13:55:08 [facility] | | | + + + +--------+ + + + + | Result panel 646 | + + + + + +--------+ + + | | 2022-05-13 | [facility] | 93.1 | (missing) | (missing) | | (unavailable | 13:55:08 [facility] | | | + + + +--------+ + + + + | Result panel 647 | + + + + + +--------+ + + | | 2022-05-13 | [facility] | 30.7 | (missing) | (missing) | | (unavailable | 13:55:08 [facility] | | | + + + +--------+ + + + + | Result panel 648 | + + + + + +--------+ + + | | 2022-05-13 | [facility] | 33.0 | (missing) | (missing) | | (unavailable | 13:55:08 [facility] | | | + + + +--------+ + + + + | Result panel 649 | + + + + + +--------+ + + | | 2022-05-13 | [facility] | 14.1 | (missing) | (missing) | | (unavailable | 13:55:08 [facility] | | | + + + +--------+ + + + + | Result panel 650 | + + + + + +-------+ + + | | 2022-05-13 | [facility] | 267 | (missing) | (missing) | | (unavailable | 13:55:08 [facility] | | | + + + +-------+ + + + + | Result panel 651 | + + + + + +--------+ + + | | 2022-05-13 | [facility] | 65.2 | (missing) | (missing) | | (unavailable | 13:55:08 [facility] | | | + + + +--------+ + + + + | Result panel 652 | + + + + + +--------+ + + | | 2022-05-13 | [facility] | 26.3 | (missing) | (missing) | | (unavailable | 13:55:08 [facility] | | | + + + +--------+ + + + + | Result panel 653 | + + + + + +-------+ + + | | 2022-05-13 | [facility] | 4.7 | (missing) | (missing) | | (unavailable | 13:55:08 [facility] | | | + + + +-------+ + + + + | Result panel 654 | + + + + + +-------+ + + | | 2022-05-13 | [facility] | 2.9 | (missing) | (missing) | | (unavailable | 13:55:08 [facility] | | | + + + +-------+ + + + + | Result panel 655 | + + + + + +-------+ + + | | 2022-05-13 | [facility] | 0.9 | (missing) | (missing) | | (unavailable | 13:55:08 [facility] | | | + + + +-------+ + + + + | Result panel 656 | + + + + + +-------+---------+ + | | 2022-05-13 | [facility] | 147 | mg/dL | (missing) | | (unavailable | 13:55:08 [facility] | | | + + + +-------+---------+ + + + | Result panel 657 | + + + + + +------+---------+ + | | 2022-05-13 | [facility] | 17 | mg/dL | (missing) | | (unavailable | 13:55:08 [facility] | | | + + + +------+---------+ + + + | Result panel 658 | + + + + + +--------+---------+ + | | 2022-05-13 | [facility] | 1.02 | mg/dL | (missing) | | (unavailable | 13:55:08 [facility] | | | + + + +--------+---------+ + + + | Result panel 659 | + + + + + +------+ + + | | 2022-05-13 | [facility] | 66 | (missing) | (missing) | | (unavailable | 13:55:08 [facility] | | | + + + +------+ + + + + | Result panel 660 | + + + + + +---------+ + + | | 2022-05-13 | [facility] | 16.66 | (missing) | (missing) | | (unavailable | 13:55:08 [facility] | | | + + + +---------+ + + + + | Result panel 661 | + + + + + +-------+ + + | | 2022-05-13 | [facility] | 137 | (missing) | (missing) | | (unavailable | 13:55:08 [facility] | | | + + + +-------+ + + + + | Result panel 662 | + + + + + +-------+ + + | | 2022-05-13 | [facility] | 4.3 | (missing) | (missing) | | (unavailable | 13:55:08 [facility] | | | + + + +-------+ + + + + | Result panel 663 | + + + + + +-------+ + + | | 2022-05-13 | [facility] | 102 | (missing) | (missing) | | (unavailable | 13:55:08 [facility] | | | + + + +-------+ + + + + | Result panel 664 | + + + + + +------+ + + | | 2022-05-13 | [facility] | 29 | (missing) | (missing) | | (unavailable | 13:55:08 [facility] | | | + + + +------+ + + + + | Result panel 665 | + + + + + +--------+ + + | | 2022-05-13 | [facility] | 10.3 | (missing) | (missing) | | (unavailable | 13:55:08 [facility] | | | + + + +--------+ + + + + | Result panel 666 | + + + + + +-------+---------+ + | | 2022-05-13 | [facility] | 9.5 | mg/dL | (missing) | | (unavailable | 13:55:08 [facility] | | | + + + +-------+---------+ + + + | Result panel 667 | + + + + + +-------+---------+ + | | 2022-05-13 | [facility] | 1.7 | mg/dL | (missing) | | (unavailable | 13:55:08 [facility] | | | + + + +-------+---------+ + + + | Result panel 668 | + + + + + +-------+ + + | | 2022-05-13 | [facility] | 7.4 | (missing) | (missing) | | (unavailable | 13:55:08 [facility] | | | + + + +-------+ + + + + | Result panel 669 | + + + + + +-------+ + + | | 2022-05-13 | [facility] | 3.5 | (missing) | (missing) | | (unavailable | 13:55:08 [facility] | | | + + + +-------+ + + + + | Result panel 670 | + + + + + +-------+ + + | | 2022-05-13 | [facility] | 3.9 | (missing) | (missing) | | (unavailable | 13:55:08 [facility] | | | + + + +-------+ + + + + | Result panel 671 | + + + + + +--------+ + + | | 2022-05-13 | [facility] | 0.90 | (missing) | (missing) | | (unavailable | 13:55:08 [facility] | | | + + + +--------+ + + + + | Result panel 672 | + + + + + +-------+ + + | | 2022-05-13 | [facility] | 0.4 | (missing) | (missing) | | (unavailable | 13:55:08 [facility] | | | + + + +-------+ + + + + | Result panel 673 | + + + + + +------+ + + | | 2022-05-13 | [facility] | 53 | (missing) | (missing) | | (unavailable | 13:55:08 [facility] | | | + + + +------+ + + + + | Result panel 674 | + + + + + +------+ + + | | 2022-05-13 | [facility] | 77 | (missing) | (missing) | | (unavailable | 13:55:08 [facility] | | | + + + +------+ + + + + | Result panel 675 | + + + + + +-------+ + + | | 2022-05-13 | [facility] | 118 | (missing) | (missing) | | (unavailable | 13:55:08 [facility] | | | + + + +-------+ + + + + | Result panel 676 | + + + + + +------+ + + | | 2022-05-13 | [facility] | 62 | (missing) | (missing) | | (unavailable | 13:55:08 [facility] | | | + + + +------+ + + + + | Result panel 677 | + + + + + +--------+ + + | | 2022-05-13 | [facility] | 11.8 | (missing) | (missing) | | (unavailable | 13:55:08 [facility] | | | + + + +--------+ + + + + | Result panel 678 | + + + + + +--------+ + + | | 2022-05-13 | [facility] | 4.85 | (missing) | (missing) | | (unavailable | 13:55:08 [facility] | | | + + + +--------+ + + + + | Result panel 679 | + + + + + +--------+ + + | | 2022-05-13 | [facility] | 14.9 | (missing) | (missing) | | (unavailable | 13:55:08 [facility] | | | + + + +--------+ + + + + | Result panel 680 | + + + + + +--------+ + + | | 2022-05-13 | [facility] | 45.1 | (missing) | (missing) | | (unavailable | 13:55:08 [facility] | | | + + + +--------+ + + + + | Result panel 681 | + + + + + +--------+ + + | | 2022-05-13 | [facility] | 93.1 | (missing) | (missing) | | (unavailable | 13:55:08 [facility] | | | + + + +--------+ + + + + | Result panel 682 | + + + + + +--------+ + + | | 2022-05-13 | [facility] | 30.7 | (missing) | (missing) | | (unavailable | 13:55:08 [facility] | | | + + + +--------+ + + + + | Result panel 683 | + + + + + +--------+ + + | | 2022-05-13 | [facility] | 33.0 | (missing) | (missing) | | (unavailable | 13:55:08 [facility] | | | + + + +--------+ + + + + | Result panel 684 | + + + + + +--------+ + + | | 2022-05-13 | [facility] | 14.1 | (missing) | (missing) | | (unavailable | 13:55:08 [facility] | | | + + + +--------+ + + + + | Result panel 685 | + + + + + +-------+ + + | | 2022-05-13 | [facility] | 267 | (missing) | (missing) | | (unavailable | 13:55:08 | [facility] | | | | + + + +-------+ + + + + | Result panel 686 | + + + + + +--------+ + + | | 2022-05-13 | [facility] | 65.2 | (missing) | (missing) | | (unavailable | 13:55:08 | [facility] | | | | + + + +--------+ + + + + | Result panel 687 | + + + + + +--------+ + + | | 2022-05-13 | [facility] | 26.3 | (missing) | (missing) | | (unavailable | 13:55:08 [facility] | | | | + + + +--------+ + + + + | Result panel 688 | + + + + + +-------+ + + | | 2022-05-13 | [facility] | 4.7 | (missing) | (missing) | | (unavailable | 13:55:08 [facility] | | | | + + + +-------+ + + + + | Result panel 689 | + + + + + +-------+ + + | | 2022-05-13 | [facility] | 2.9 | (missing) | (missing) | | (unavailable | 13:55:08 [facility] | | | | + + + +-------+ + + + + | Result panel 690 | + + + + + +-------+ + + | | 2022-05-13 | [facility] | 0.9 | (missing) | (missing) | | (unavailable | 13:55:08 [facility] | | | | + + + +-------+ + + + + | Result panel 691 | + + + + + +-------+---------+ + | | 2022-05-13 | [facility] | 147 | mg/dL | (missing) | | (unavailable | 13:55:08 | [facility] | | | | + + + +-------+---------+ + + + | Result panel 692 | + + + + + +------+---------+ + | | 2022-05-13 | [facility] | 17 | mg/dL | (missing) | | (unavailable | 13:55:08 [facility] | | | | + + + +------+---------+ + + + | Result panel 693 | + + + + + +--------+---------+ + | | 2022-05-13 | [facility] | 1.02 | mg/dL | (missing) | | (unavailable | 13:55:08 [facility] | | | | + + + +--------+---------+ + + + | Result panel 694 | + + + + + +------+ + + | | 2022-05-13 | [facility] | 66 | (missing) | (missing) | | (unavailable | 13:55:08 [facility] | | | | + + + +------+ + + + + | Result panel 695 | + + + + + +---------+ + + | | 2022-05-13 | [facility] | 16.66 | (missing) | (missing) | | (unavailable | 13:55:08 [facility] | | | | + + + +---------+ + + + + | Result panel 696 | + + + + + +-------+ + + | | 2022-05-13 | [facility] | 137 | (missing) | (missing) | | (unavailable | 13:55:08 [facility] | | | | + + + +-------+ + + + + | Result panel 697 | + + + + + +-------+ + + | | 2022-05-13 | [facility] | 4.3 | (missing) | (missing) | | (unavailable | 13:55:08 | [facility] | | | | + + + +-------+ + + + + | Result panel 698 | + + + + + +-------+ + + | | 2022-05-13 | [facility] | 102 | (missing) | (missing) | | (unavailable | 13:55:08 [facility] | | | | + + + +-------+ + + + + | Result panel 699 | + + + + + +------+ + + | | 2022-05-13 | [facility] | 29 | (missing) | (missing) | | (unavailable | 13:55:08 | [facility] | | | | + + + +------+ + + + + | Result panel 700 | + + + + + +--------+ + + | | 2022-05-13 | [facility] | 10.3 | (missing) | (missing) | | (unavailable | 13:55:08 | [facility] | | | | + + + +--------+ + + + + | Result panel 701 | + + + + + +-------+---------+ + | | 2022-05-13 | [facility] | 9.5 | mg/dL | (missing) | | (unavailable | 13:55:08 | [facility] | | | | + + + +-------+---------+ + + + | Result panel 702 | + + + + + +-------+---------+ + | | 2022-05-13 | [facility] | 1.7 | mg/dL | (missing) | | (unavailable | 13:55:08 | [facility] | | | | + + + +-------+---------+ + + + | Result panel 703 | + + + + + +-------+ + + | | 2022-05-13 | [facility] | 7.4 | (missing) | (missing) | | (unavailable | 13:55:08 | [facility] | | | + + + +-------+ + + + + | Result panel 704 | + + + + + +-------+ + + | | 2022-05-13 | [facility] | 3.5 | (missing) | (missing) | | (unavailable | 13:55:08 | [facility] | | | + + + +-------+ + + + + | Result panel 705 | + + + + + +-------+ + + | | 2022-05-13 | [facility] | 3.9 | (missing) | (missing) | | (unavailable | 13:55:08 | [facility] | | | + + + +-------+ + + + + | Result panel 706 | + + + + + +--------+ + + | | 2022-05-13 | [facility] | 0.90 | (missing) | (missing) | | (unavailable | 13:55:08 | [facility] | | | + + + +--------+ + + + + | Result panel 707 | + + + + + +-------+ + + | | 2022-05-13 | [facility] | 0.4 | (missing) | (missing) | | (unavailable | 13:55:08 [facility] | | | + + + +-------+ + + + + | Result panel 708 | + + + + + +------+ + + | | 2022-05-13 | [facility] | 53 | (missing) | (missing) | | (unavailable | 13:55:08 [facility] | | | + + + +------+ + + + + | Result panel 709 | + + + + + +------+ + + | | 2022-05-13 | [facility] | 77 | (missing) | (missing) | | (unavailable | 13:55:08 | [facility] | | | + + + +------+ + + + + | Result panel 710 | + + + + + +-------+ + + | | 2022-05-13 | [facility] | 118 | (missing) | (missing) | | (unavailable | 13:55:08 | [facility] | | | + + + +-------+ + + + + | Result panel 711 | + + + + + +------+ + + | | 2022-05-13 | [facility] | 62 | (missing) | (missing) | | (unavailable | 13:55:08 | [facility] | | | + + + +------+ + + + + | Result panel 712 | + + + + + +-------+ + + | | 2022-06-25 | [facility] | 117 | (missing) | (missing) | | (unavailable | 12:55:08 [facility] | | | + + + +-------+ + + + + | Result panel 713 | + + + + + +--------+ + + | | 2022-06-25 | [facility] | 13.2 | (missing) | (missing) | | (unavailable | 12:55:08 [facility] | | | + + + +--------+ + + + + | Result panel 714 | + + + + + +--------+ + + | | 2022-06-25 | [facility] | 4.99 | (missing) | (missing) | | (unavailable | 12:55:08 [facility] | | | + + + +--------+ + + + + | Result panel 715 | + + + + + +--------+ + + | | 2022-06-25 | [facility] | 15.6 | (missing) | (missing) | | (unavailable | 12:55:08 [facility] | | | + + + +--------+ + + + + | Result panel 716 | + + + + + +--------+ + + | | 2022-06-25 | [facility] | 47.0 | (missing) | (missing) | | (unavailable | 12:55:08 [facility] | | | + + + +--------+ + + + + | Result panel 717 | + + + + + +--------+ + + | | 2022-06-25 | [facility] | 94.2 | (missing) | (missing) | | (unavailable | 12:55:08 [facility] | | | + + + +--------+ + + + + | Result panel 718 | + + + + + +--------+ + + | | 2022-06-25 | [facility] | 31.2 | (missing) | (missing) | | (unavailable | 12:55:08 [facility] | | | + + + +--------+ + + + + | Result panel 719 | + + + + + +--------+ + + | | 2022-06-25 | [facility] | 33.1 | (missing) | (missing) | | (unavailable | 12:55:08 [facility] | | | + + + +--------+ + + + + | Result panel 720 | + + + + + +--------+ + + | | 2022-06-25 | [facility] | 14.0 | (missing) | (missing) | | (unavailable | 12:55:08 [facility] | | + + + +--------+ + + + + | Result panel 721 | + + + + + +-------+ + + | | 2022-06-25 | [facility] | 230 | (missing) | (missing) | | (unavailable | 12:55:08 [facility] | | | + + + +-------+ + + + + | Result panel 722 | + + + + + +--------+ + + | | 2022-06-25 | [facility] | 58.8 | (missing) | (missing) | | (unavailable | 12:55:08 [facility] | | | + + + +--------+ + + + + | Result panel 723 | + + + + + +--------+ + + | | 2022-06-25 | [facility] | 32.8 | (missing) | (missing) | | (unavailable | 12:55:08 [facility] | | | + + + +--------+ + + + + | Result panel 724 | + + + + + +-------+ + + | | 2022-06-25 | [facility] | 4.9 | (missing) | (missing) | | (unavailable | 12:55:08 [facility] | | | + + + +-------+ + + + + | Result panel 725 | + + + + + +-------+ + + | | 2022-06-25 | [facility] | 2.5 | (missing) | (missing) | | (unavailable | 12:55:08 [facility] | | | + + + +-------+ + + + + | Result panel 726 | + + + + + +-------+ + + | | 2022-06-25 | [facility] | 1.0 | (missing) | (missing) | | (unavailable | 12:55:08 [facility] | | | + + + +-------+ + + + + | Result panel 727 | + + + + + +-------+---------+ + | | 2022-06-25 | [facility] | 219 | mg/dL | (missing) | | (unavailable | 12:55:08 [facility] | | | + + + +-------+---------+ + + + | Result panel 728 | + + + + + +------+---------+ + | | 2022-06-25 | [facility] | 25 | mg/dL | (missing) | | (unavailable | 12:55:08 [facility] | | | + + + +------+---------+ + + + | Result panel 729 | + + + + + +--------+---------+ + | | 2022-06-25 | [facility] | 1.04 | mg/dL | (missing) | | (unavailable | 12:55:08 [facility] | | | + + + +--------+---------+ + + + | Result panel 730 | + + + + + +------+ + + | | 2022-06-25 | [facility] | 65 | (missing) | (missing) | | (unavailable | 12:55:08 [facility] | | | + + + +------+ + + + + | Result panel 731 | + + + + + +---------+ + + | | 2022-06-25 | [facility] | 24.03 | (missing) | (missing) | | (unavailable | 12:55:08 [facility] | | | + + + +---------+ + + + + | Result panel 732 | + + + + + +-------+ + + | | 2022-06-25 | [facility] | 133 | (missing) | (missing) | | (unavailable | 12:55:08 [facility] | | | + + + +-------+ + + + + | Result panel 733 | + + + + + +-------+ + + | | 2022-06-25 | [facility] | 4.8 | (missing) | (missing) | | (unavailable | 12:55:08 [facility] | | | + + + +-------+ + + + + | Result panel 734 | + + + + + +-------+ + + | | 2022-06-25 | [facility] | 100 | (missing) | (missing) | | (unavailable | 12:55:08 [facility] | | | + + + +-------+ + + + + | Result panel 735 | + + + + + +------+ + + | | 2022-06-25 | [facility] | 22 | (missing) | (missing) | | (unavailable | 12:55:08 [facility] | | | + + + +------+ + + + + | Result panel 736 | + + + + + +--------+ + + | | 2022-06-25 | [facility] | 15.8 | (missing) | (missing) | | (unavailable | 12:55:08 [facility] | | + + + +--------+ + + + + | Result panel 737 | + + + + + +-------+---------+ + | | 2022-06-25 | [facility] | 9.5 | mg/dL | (missing) | | (unavailable | 12:55:08 [facility] | | | + + + +-------+---------+ + + + | Result panel 738 | + + + + + +-------+ + + | | 2022-06-25 | [facility] | 7.4 | (missing) | (missing) | | (unavailable | 12:55:08 [facility] | | | + + + +-------+ + + + + | Result panel 739 | + + + + + +-------+ + + | | 2022-06-25 | [facility] | 3.3 | (missing) | (missing) | | (unavailable | 12:55:08 [facility] | | + + + +-------+ + + + + | Result panel 740 | + + + + + +-------+ + + | | 2022-06-25 | [facility] | 4.1 | (missing) | (missing) | | (unavailable | 12:55:08 [facility] | | | + + + +-------+ + + + + | Result panel 741 | + + + + + +--------+ + + | | 2022-06-25 | [facility] | 0.80 | (missing) | (missing) | | (unavailable | 12:55:08 [facility] | | + + + +--------+ + + + + | Result panel 742 | + + + + + +-------+ + + | | 2022-06-25 | [facility] | 0.4 | (missing) | (missing) | | (unavailable | 12:55:08 [facility] | | + + + +-------+ + + + + | Result panel 743 | + + + + + +------+ + + | | 2022-06-25 | [facility] | 56 | (missing) | (missing) | | (unavailable | 12:55:08 [facility] | | | + + + +------+ + + + + | Result panel 744 | + + + + + +------+ + + | | 2022-06-25 | [facility] | 65 | (missing) | (missing) | | (unavailable | 12:55:08 [facility] | | | + + + +------+ + + + + | Result panel 745 | + + + + + +-------+ + + | | 2022-06-25 | [facility] | 115 | (missing) | (missing) | | (unavailable | 12:55:08 [facility] | | | + + + +-------+ + + + + | Result panel 746 | + + + + + +-------+ + + | | 2022-06-25 | [facility] | 117 | (missing) | (missing) | | (unavailable | 12:55:08 [facility] | | | + + + +-------+ + + + + | Result panel 747 | + + + + + + + + + | | 2022-06-25 | [facility] | NEGATIVE | (missing) | (missing) | | (unavailable | 14:15:08 | [facility] | | | + + + + + + + + + | Result panel 748 | + + + + + + + + + | | 2022-06-25 | [facility] | NEGATIVE | (missing) | (missing) | | (unavailable | 14:15:08 | [facility] | | | + + + + + + + + + | Result panel 749 | + + + + + + + + + | | 2022-06-25 | [facility] | NEGATIVE | (missing) | (missing) | | (unavailable | 14:15:08 | [facility] | | | + + + + + + + + + | Result panel 750 | + + + + + + + + + | | 2022-06-25 | [facility] | NEGATIVE | (missing) | (missing) | | (unavailable | 14:15:08 [facility] | | | + + + + + + + + + | Result panel 751 | + + + + + + + + + | | 2022-06-25 | [facility] | NEGATIVE | (missing) | (missing) | | (unavailable | 14:15:08 [facility] | | | + + + + + + + + + | Result panel 752 | + + + + + + + + + | | 2022-06-25 | [facility] | NEGATIVE | (missing) | (missing) | | (unavailable | 14:15:08 [facility] | | | + + + + + + + + + | Result panel 753 | + + + + + + + + + | | 2022-06-25 | [facility] | NEGATIVE | (missing) | (missing) | | (unavailable | 14:15:08 [facility] | | | + + + + + + + + + | Result panel 754 | + + + + + + + + + | | 2022-06-25 | [facility] | NEGATIVE | (missing) | (missing) | | (unavailable | 14:15:08 [facility] | | | + + + + + + + + + | Result panel 755 | + + + + + + + + + | | 2022-06-25 | [facility] | YELLOW | (missing) | (missing) | | (unavailable | 14:58:08 [facility] | | | + + + + + + + + + | Result panel 756 | + + + + + +---------+ + + | | 2022-06-25 | [facility] | CLEAR | (missing) | (missing) | | (unavailable | 14:58:08 [facility] | | | + + + +---------+ + + + + | Result panel 757 | + + + + + + + + + | | 2022-06-25 | [facility] | NEGATIVE | (missing) | (missing) | | (unavailable | 14:58:08 [facility] | | | + + + + + + + + + | Result panel 758 | + + + + + + + + + | | 2022-06-25 | [facility] | NEGATIVE | (missing) | (missing) | | (unavailable | 14:58:08 [facility] | | | + + + + + + + + + | Result panel 759 | + + + + + + + + + | | 2022-06-25 | [facility] | NEGATIVE | (missing) | (missing) | | (unavailable | 14:58:08 [facility] | | | + + + + + + + + + | Result panel 760 | + + + + + +---------+ + + | | 2022-06-25 | [facility] | 1.020 | (missing) | (missing) | | (unavailable | 14:58:08 [facility] | | | + + + +---------+ + + + + | Result panel 761 | + + + + + + + + + | | 2022-06-25 | [facility] | NEGATIVE | (missing) | (missing) | | (unavailable | 14:58:08 [facility] | | | + + + + + + + + + | Result panel 762 | + + + + + +-------+ + + | | 2022-06-25 | [facility] | 6.0 | (missing) | (missing) | | (unavailable | 14:58:08 [facility] | | | + + + +-------+ + + + + | Result panel 763 | + + + + + +-------+ + + | | 2022-06-25 | [facility] | 100 | (missing) | (missing) | | (unavailable | 14:58:08 [facility] | | | + + + +-------+ + + + + | Result panel 764 | + + + + + + + + + | | 2022-06-25 | [facility] | NORMAL | (missing) | (missing) | | (unavailable | 14:58:08 [facility] | | | + + + + + + + + + | Result panel 765 | + + + + + + + + + | | 2022-06-25 | [facility] | POSITIVE | (missing) | (missing) | | (unavailable | 14:58:08 [facility] | | | + + + + + + + + + | Result panel 766 | + + + + + + + + + | | 2022-06-25 | [facility] | NEGATIVE | (missing) | (missing) | | (unavailable | 14:58:08 [facility] | | | + + + + + + + + + | Result panel 767 | + + + + + +-------+ + + | | 2022-06-25 | [facility] | 2-3 | (missing) | (missing) | | (unavailable | 14:58:08 [facility] | | | + + + +-------+ + + + + | Result panel 768 | + + + + + +--------+ + + | | 2022-06-25 | [facility] | 7-11 | (missing) | (missing) | | (unavailable | 14:58:08 [facility] | | | + + + +--------+ + + + + | Result panel 769 | + + + + + + + + + | | 2022-06-25 | [facility] | SQUAMOUS 2+ | (missing) | (missing) | | (unavailable | 14:58:08 [facility] | | | + + + + + + + + + | Result panel 770 | + + + + + + + + + | | 2022-06-25 | [facility] | NONE SEEN | (missing) | (missing) | | (unavailable | 14:58:08 [facility] | | | + + + + + + + + + | Result panel 771 | + + + + + +------+ + + | | 2022-06-25 | [facility] | 1+ | (missing) | (missing) | | (unavailable | 14:58:08 [facility] | | | + + + +------+ + + + + | Result panel 772 | + + + + + + + + + | | 2022-06-25 | [facility] | GRANULAR 1+ | (missing) | (missing) | | (unavailable | 14:58:08 [facility] | | | + + + + + + + + + | Result panel 773 | + + + + + +-------+ + + | | 2022-06-25 | [facility] | Yes | (missing) | (missing) | | (unavailable | 14:58:08 [facility] | | | + + + +-------+ + + + + | Result panel 774 | + + + + + + + + + | | 2022-06-25 | [facility] | CLEAN CATCH | (missing) | (missing) | | (unavailable | 14:58:08 [facility] | | | + + + + + + + + + | Result panel 775 | + + + + + +--------+ + + | | 2022-07-25 | [facility] | 13.0 | (missing) | (missing) | | (unavailable | 11:42:08 [facility] | | + + + +--------+ + + + + | Result panel 776 | + + + + + +--------+ + + | | 2022-07-25 | [facility] | 5.33 | (missing) | (missing) | | (unavailable | 11:42:08 [facility] | | | + + + +--------+ + + + + | Result panel 777 | + + + + + +--------+ + + | | 2022-07-25 | [facility] | 16.3 | (missing) | (missing) | | (unavailable | 11:42:08 [facility] | | | + + + +--------+ + + + + | Result panel 778 | + + + + + +--------+ + + | | 2022-07-25 | [facility] | 49.1 | (missing) | (missing) | | (unavailable | 11:42:08 [facility] | | | + + + +--------+ + + + + | Result panel 779 | + + + + + +--------+ + + | | 2022-07-25 | [facility] | 92.2 | (missing) | (missing) | | (unavailable | 11:42:08 [facility] | | | + + + +--------+ + + + + | Result panel 780 | + + + + + +--------+ + + | | 2022-07-25 | [facility] | 30.7 | (missing) | (missing) | | (unavailable | 11:42:08 [facility] | | | + + + +--------+ + + + + | Result panel 781 | + + + + + +--------+ + + | | 2022-07-25 | [facility] | 33.3 | (missing) | (missing) | | (unavailable | 11:42:08 [facility] | | | + + + +--------+ + + + + | Result panel 782 | + + + + + +--------+ + + | | 2022-07-25 | [facility] | 13.9 | (missing) | (missing) | | (unavailable | 11:42:08 [facility] | | | + + + +--------+ + + + + | Result panel 783 | + + + + + +-------+ + + | | 2022-07-25 | [facility] | 308 | (missing) | (missing) | | (unavailable | 11:42:08 [facility] | | | + + + +-------+ + + + + | Result panel 784 | + + + + + +--------+ + + | | 2022-07-25 | [facility] | 62.3 | (missing) | (missing) | | (unavailable | 11:42:08 [facility] | | | + + + +--------+ + + + + | Result panel 785 | + + + + + +--------+ + + | | 2022-07-25 | [facility] | 30.1 | (missing) | (missing) | | (unavailable | 11:42:08 [facility] | | | + + + +--------+ + + + + | Result panel 786 | + + + + + +-------+ + + | | 2022-07-25 | [facility] | 4.4 | (missing) | (missing) | | (unavailable | 11:42:08 [facility] | | | + + + +-------+ + + + + | Result panel 787 | + + + + + +-------+ + + | | 2022-07-25 | [facility] | 2.3 | (missing) | (missing) | | (unavailable | 11:42:08 [facility] | | | + + + +-------+ + + + + | Result panel 788 | + + + + + +-------+ + + | | 2022-07-25 | [facility] | 0.9 | (missing) | (missing) | | (unavailable | 11:42:08 [facility] | | | + + + +-------+ + + + + | Result panel 789 | + + + + + +-------+---------+ + | | 2022-07-25 | [facility] | 222 | mg/dL | (missing) | | (unavailable | 11:42:08 [facility] | | | + + + +-------+---------+ + + + | Result panel 790 | + + + + + +------+---------+ + | | 2022-07-25 | [facility] | 20 | mg/dL | (missing) | | (unavailable | 11:42:08 [facility] | | | + + + +------+---------+ + + + | Result panel 791 | + + + + + +--------+---------+ + | | 2022-07-25 | [facility] | 1.09 | mg/dL | (missing) | | (unavailable | 11:42:08 [facility] | | | + + + +--------+---------+ + + + | Result panel 792 | + + + + + +------+ + + | | 2022-07-25 | [facility] | 61 | (missing) | (missing) | | (unavailable | 11:42:08 [facility] | | | + + + +------+ + + + + | Result panel 793 | + + + + + +---------+ + + | | 2022-07-25 | [facility] | 18.34 | (missing) | (missing) | | (unavailable | 11:42:08 [facility] | | | + + + +---------+ + + + + | Result panel 794 | + + + + + +-------+ + + | | 2022-07-25 | [facility] | 138 | (missing) | (missing) | | (unavailable | 11:42:08 [facility] | | | + + + +-------+ + + + + | Result panel 795 | + + + + + +-------+ + + | | 2022-07-25 | [facility] | 4.6 | (missing) | (missing) | | (unavailable | 11:42:08 [facility] | | | + + + +-------+ + + + + | Result panel 796 | + + + + + +-------+ + + | | 2022-07-25 | [facility] | 100 | (missing) | (missing) | | (unavailable | 11:42:08 [facility] | | | + + + +-------+ + + + + | Result panel 797 | + + + + + +------+ + + | | 2022-07-25 | [facility] | 27 | (missing) | (missing) | | (unavailable | 11:42:08 [facility] | | | + + + +------+ + + + + | Result panel 798 | + + + + + +--------+ + + | | 2022-07-25 | [facility] | 15.6 | (missing) | (missing) | | (unavailable | 11:42:08 [facility] | | | + + + +--------+ + + + + | Result panel 799 | + + + + + +--------+---------+ + | | 2022-07-25 | [facility] | 10.7 | mg/dL | (missing) | | (unavailable | 11:42:08 [facility] | | | + + + +--------+---------+ + + + | Result panel 800 | + + + + + +-------+ + + | | 2022-07-25 | [facility] | 7.7 | (missing) | (missing) | | (unavailable | 11:42:08 [facility] | | | + + + +-------+ + + + + | Result panel 801 | + + + + + +-------+ + + | | 2022-07-25 | [facility] | 3.6 | (missing) | (missing) | | (unavailable | 11:42:08 [facility] | | | + + + +-------+ + + + + | Result panel 802 | + + + + + +-------+ + + | | 2022-07-25 | [facility] | 4.1 | (missing) | (missing) | | (unavailable | 11:42:08 [facility] | | | + + + +-------+ + + + + | Result panel 803 | + + + + + +--------+ + + | | 2022-07-25 | [facility] | 0.88 | (missing) | (missing) | | (unavailable | 11:42:08 [facility] | | | + + + +--------+ + + + + | Result panel 804 | + + + + + +-------+ + + | | 2022-07-25 | [facility] | 0.2 | (missing) | (missing) | | (unavailable | 11:42:08 [facility] | | | + + + +-------+ + + + + | Result panel 805 | + + + + + +------+ + + | | 2022-07-25 | [facility] | 32 | (missing) | (missing) | | (unavailable | 11:42:08 [facility] | | | + + + +------+ + + + + | Result panel 806 | + + + + + +------+ + + | | 2022-07-25 | [facility] | 54 | (missing) | (missing) | | (unavailable | 11:42:08 [facility] | | | + + + +------+ + + + + | Result panel 807 | + + + + + +-------+ + + | | 2022-07-25 | [facility] | 130 | (missing) | (missing) | | (unavailable | 11:42:08 [facility] | | | + + + +-------+ + + + + | Result panel 808 | + + + + + +--------+ + + | | 2022-07-25 | [facility] | 13.0 | (missing) | (missing) | | (unavailable | 11:42:08 | [facility] | | | | + + + +--------+ + + + + | Result panel 809 | + + + + + +--------+ + + | | 2022-07-25 | [facility] | 5.33 | (missing) | (missing) | | (unavailable | 11:42:08 | [facility] | | | | + + + +--------+ + + + + | Result panel 810 | + + + + + +--------+ + + | | 2022-07-25 | [facility] | 16.3 | (missing) | (missing) | | (unavailable | 11:42:08 | [facility] | | | | + + + +--------+ + + + + | Result panel 811 | + + + + + +--------+ + + | | 2022-07-25 | [facility] | 49.1 | (missing) | (missing) | | (unavailable | 11:42:08 [facility] | | | | + + + +--------+ + + + + | Result panel 812 | + + + + + +--------+ + + | | 2022-07-25 | [facility] | 92.2 | (missing) | (missing) | | (unavailable | 11:42:08 [facility] | | | | + + + +--------+ + + + + | Result panel 813 | + + + + + +--------+ + + | | 2022-07-25 | [facility] | 30.7 | (missing) | (missing) | | (unavailable | 11:42:08 [facility] | | | | + + + +--------+ + + + + | Result panel 814 | + + + + + +--------+ + + | | 2022-07-25 | [facility] | 33.3 | (missing) | (missing) | | (unavailable | 11:42:08 [facility] | | | | + + + +--------+ + + + + | Result panel 815 | + + + + + +--------+ + + | | 2022-07-25 | [facility] | 13.9 | (missing) | (missing) | | (unavailable | 11:42:08 [facility] | | | | + + + +--------+ + + + + | Result panel 816 | + + + + + +-------+ + + | | 2022-07-25 | [facility] | 308 | (missing) | (missing) | | (unavailable | 11:42:08 [facility] | | | | + + + +-------+ + + + + | Result panel 817 | + + + + + +--------+ + + | | 2022-07-25 | [facility] | 62.3 | (missing) | (missing) | | (unavailable | 11:42:08 [facility] | | | | + + + +--------+ + + + + | Result panel 818 | + + + + + +--------+ + + | | 2022-07-25 | [facility] | 30.1 | (missing) | (missing) | | (unavailable | 11:42:08 [facility] | | | | + + + +--------+ + + + + | Result panel 819 | + + + + + +-------+ + + | | 2022-07-25 | [facility] | 4.4 | (missing) | (missing) | | (unavailable | 11:42:08 [facility] | | | | + + + +-------+ + + + + | Result panel 820 | + + + + + +-------+ + + | | 2022-07-25 | [facility] | 2.3 | (missing) | (missing) | | (unavailable | 11:42:08 [facility] | | | | + + + +-------+ + + + + | Result panel 821 | + + + + + +-------+ + + | | 2022-07-25 | [facility] | 0.9 | (missing) | (missing) | | (unavailable | 11:42:08 | [facility] | | | | + + + +-------+ + + + + | Result panel 822 | + + + + + +-------+---------+ + | | 2022-07-25 | [facility] | 222 | mg/dL | (missing) | | (unavailable | 11:42:08 | [facility] | | | | + + + +-------+---------+ + + + | Result panel 823 | + + + + + +------+---------+ + | | 2022-07-25 | [facility] | 20 | mg/dL | (missing) | | (unavailable | 11:42:08 | [facility] | | | | + + + +------+---------+ + + + | Result panel 824 | + + + + + +--------+---------+ + | | 2022-07-25 | [facility] | 1.09 | mg/dL | (missing) | | (unavailable | 11:42:08 | [facility] | | | | + + + +--------+---------+ + + + | Result panel 825 | + + + + + +------+ + + | | 2022-07-25 | [facility] | 61 | (missing) | (missing) | | (unavailable | 11:42:08 | [facility] | | | | + + + +------+ + + + + | Result panel 826 | + + + + + +---------+ + + | | 2022-07-25 | [facility] [facility] | 18.34 | (missing) | (missing) | | (unavailable | 11:42:08 | [facility] | | | | + + + +---------+ + + + + | Result panel 827 | + + + + + +-------+ + + | | 2022-07-25 | [facility] | 138 | (missing) | (missing) | | (unavailable | 11:42:08 | [facility] | | | + + + +-------+ + + + + | Result panel 828 | + + + + + +-------+ + + | | 2022-07-25 | [facility] | 4.6 | (missing) | (missing) | | (unavailable | 11:42:08 | [facility] | | | + + + +-------+ + + + + | Result panel 829 | + + + + + +-------+ + + | | 2022-07-25 | [facility] | 100 | (missing) | (missing) | | (unavailable | 11:42:08 | [facility] | | | + + + +-------+ + + + + | Result panel 830 | + + + + + +------+ + + | | 2022-07-25 | [facility] | 27 | (missing) | (missing) | | (unavailable | 11:42:08 [facility] | | | + + + +------+ + + + + | Result panel 831 | + + + + + +--------+ + + | | 2022-07-25 | [facility] | 15.6 | (missing) | (missing) | | (unavailable | 11:42:08 [facility] | | + + + +--------+ + + + + | Result panel 832 | + + + + + +--------+---------+ + | | 2022-07-25 | [facility] | 10.7 | mg/dL | (missing) | | (unavailable | 11:42:08 [facility] | | + + + +--------+---------+ + + + | Result panel 833 | + + + + + +-------+ + + | | 2022-07-25 | [facility] | 7.7 | (missing) | (missing) | | (unavailable | 11:42:08 [facility] | | | + + + +-------+ + + + + | Result panel 834 | + + + + + +-------+ + + | | 2022-07-25 | [facility] | 3.6 | (missing) | (missing) | | (unavailable | 11:42:08 [facility] | | | + + + +-------+ + + + + | Result panel 835 | + + + + + +-------+ + + | | 2022-07-25 | [facility] | 4.1 | (missing) | (missing) | | (unavailable | 11:42:08 [facility] | | + + + +-------+ + + + + | Result panel 836 | + + + + + +--------+ + + | | 2022-07-25 | [facility] | 0.88 | (missing) | (missing) | | (unavailable | 11:42:08 [facility] | | + + + +--------+ + + + + | Result panel 837 | + + + + + +-------+ + + | | 2022-07-25 | [facility] | 0.2 | (missing) | (missing) | | (unavailable | 11:42:08 [facility] | | | + + + +-------+ + + + + | Result panel 838 | + + + + + +------+ + + | | 2022-07-25 | [facility] | 32 | (missing) | (missing) | | (unavailable | 11:42:08 [facility] | | | + + + +------+ + + + + | Result panel 839 | + + + + + +------+ + + | | 2022-07-25 | [facility] | 54 | (missing) | (missing) | | (unavailable | 11:42:08 [facility] | | | + + + +------+ + + + + | Result panel 840 | + + + + + +-------+ + + | | 2022-07-25 | [facility] | 130 | (missing) | (missing) | | (unavailable | 11:42:08 | [facility] | | | + + + +-------+ + + + + | Result panel 841 | + + + + + + + + + | | 2022-07-25 | [facility] | NONE SEEN | (missing) | (missing) | | (unavailable | 13:28:08 | [facility] | | | + + + + + + + + + | Result panel 842 | + + + + + +------+ + + | | 2022-07-25 | [facility] | 2+ | (missing) | (missing) | | (unavailable | 13:28:08 [facility] | | | + + + +------+ + + + + | Result panel 843 | + + + + + + + + + | | 2022-07-25 | [facility] | NONE SEEN | (missing) | (missing) | | (unavailable | 13:28:08 [facility] | | | + + + + + + + + + | Result panel 844 | + + + + + + + + + | | 2022-07-25 | [facility] | NONE SEEN | (missing) | (missing) | | (unavailable | 13:28:08 [facility] | | | + + + + + + + + + | Result panel 845 | + + + + + + + + + | | 2022-07-25 | [facility] | NONE SEEN | (missing) | (missing) | | (unavailable | 13:28:08 | [facility] | | | + + + + + + + + + | Result panel 846 | + + + + + + + + + | | 2022-07-25 | [facility] | NONE SEEN | (missing) | (missing) | | (unavailable | 13:28:08 [facility] | | | + + + + + + + + + | Result panel 847 | + + + + + +------+ + + | | 2022-07-25 | [facility] | 2+ | (missing) | (missing) | | (unavailable | 13:28:08 [facility] | | | + + + +------+ + + + + | Result panel 848 | + + + + + + + + + | | 2022-07-25 | [facility] | NONE SEEN | (missing) | (missing) | | (unavailable | 13:28:08 [facility] | | | + + + + + + + + + | Result panel 849 | + + + + + + + + + | | 2022-07-25 | [facility] | YELLOW | (missing) | (missing) | | (unavailable | 14:32:08 [facility] | | | + + + + + + + + + | Result panel 850 | + + + + + +---------+ + + | | 2022-07-25 | [facility] | CLEAR | (missing) | (missing) | | (unavailable | 14:32:08 [facility] | | | + + + +---------+ + + + + | Result panel 851 | + + + + + + + + + | | 2022-07-25 | [facility] | NEGATIVE | (missing) | (missing) | | (unavailable | 14:32:08 [facility] | | | + + + + + + + + + | Result panel 852 | + + + + + + + + + | | 2022-07-25 | [facility] | NEGATIVE | (missing) | (missing) | | (unavailable | 14:32:08 [facility] | | | + + + + + + + + + | Result panel 853 | + + + + + + + + + | | 2022-07-25 | [facility] | NEGATIVE | (missing) | (missing) | | (unavailable | 14:32:08 [facility] | | | + + + + + + + + + | Result panel 854 | + + + + + +---------+ + + | | 2022-07-25 | [facility] | 1.010 | (missing) | (missing) | | (unavailable | 14:32:08 [facility] | | | + + + +---------+ + + + + | Result panel 855 | + + + + + + + + + | | 2022-07-25 | [facility] | NEGATIVE | (missing) | (missing) | | (unavailable | 14:32:08 [facility] | | | + + + + + + + + + | Result panel 856 | + + + + + +-------+ + + | | 2022-07-25 | [facility] | 5.0 | (missing) | (missing) | | (unavailable | 14:32:08 [facility] | | | + + + +-------+ + + + + | Result panel 857 | + + + + + +------+ + + | | 2022-07-25 | [facility] | 30 | (missing) | (missing) | | (unavailable | 14:32:08 [facility] | | | + + + +------+ + + + + | Result panel 858 | + + + + + + + + + | | 2022-07-25 | [facility] | NORMAL | (missing) | (missing) | | (unavailable | 14:32:08 [facility] | | | + + + + + + + + + | Result panel 859 | + + + + + + + + + | | 2022-07-25 | [facility] | NEGATIVE | (missing) | (missing) | | (unavailable | 14:32:08 [facility] | | | + + + + + + + + + | Result panel 860 | + + + + + + + + + | | 2022-07-25 | [facility] | NEGATIVE | (missing) | (missing) | | (unavailable | 14:32:08 [facility] | | | + + + + + + + + + | Result panel 861 | + + + + + +-------+ + + | | 2022-07-25 | [facility] | 0-1 | (missing) | (missing) | | (unavailable | 14:32:08 [facility] | | | + + + +-------+ + + + + | Result panel 862 | + + + + + +-------+ + + | | 2022-07-25 | [facility] | 4-6 | (missing) | (missing) | | (unavailable | 14:32:08 [facility] | | | + + + +-------+ + + + + | Result panel 863 | + + + + + + + + + | | 2022-07-25 | [facility] | SQUAMOUS 1+ | (missing) | (missing) | | (unavailable | 14:32:08 | [facility] | | | + + + + + + + + + | Result panel 864 | + + + + + +------+ + + | | 2022-07-25 | [facility] | No | (missing) | (missing) | | (unavailable | 14:32:08 [facility] | | | + + + +------+ + + + + | Result panel 865 | + + + + + + + + + | | 2022-07-25 | [facility] | CLEAN CATCH | (missing) | (missing) | | (unavailable | 14:32:08 | [facility] | | | + + + + + + + + + | Result panel 866 | + + + + + + + + + | | 2022-07-25 | [facility] | YELLOW | (missing) | (missing) | | (unavailable | 14:32:08 [facility] | | | + + + + + + + + + | Result panel 867 | + + + + + +---------+ + + | | 2022-07-25 | [facility] | CLEAR | (missing) | (missing) | | (unavailable | 14:32:08 [facility] | | | + + + +---------+ + + + + | Result panel 868 | + + + + + + + + + | | 2022-07-25 | [facility] | NEGATIVE | (missing) | (missing) | | (unavailable | 14:32:08 [facility] | | | + + + + + + + + + | Result panel 869 | + + + + + + + + + | | 2022-07-25 | [facility] | NEGATIVE | (missing) | (missing) | | (unavailable | 14:32:08 [facility] | | | + + + + + + + + + | Result panel 870 | + + + + + + + + + | | 2022-07-25 | [facility] | NEGATIVE | (missing) | (missing) | | (unavailable | 14:32:08 [facility] | | | + + + + + + + + + | Result panel 871 | + + + + + +---------+ + + | | 2022-07-25 | [facility] | 1.010 | (missing) | (missing) | | (unavailable | 14:32:08 [facility] | | | + + + +---------+ + + + + | Result panel 872 | + + + + + + + + + | | 2022-07-25 | [facility] | NEGATIVE | (missing) | (missing) | | (unavailable | 14:32:08 [facility] | | | + + + + + + + + + | Result panel 873 | + + + + + +-------+ + + | | 2022-07-25 | [facility] | 5.0 | (missing) | (missing) | | (unavailable | 14:32:08 [facility] | | | + + + +-------+ + + + + | Result panel 874 | + + + + + +------+ + + | | 2022-07-25 | [facility] | 30 | (missing) | (missing) | | (unavailable | 14:32:08 [facility] | | | + + + +------+ + + + + | Result panel 875 | + + + + + + + + + | | 2022-07-25 | [facility] | NORMAL | (missing) | (missing) | | (unavailable | 14:32:08 [facility] | | | + + + + + + + + + | Result panel 876 | + + + + + + + + + | | 2022-07-25 | [facility] | NEGATIVE | (missing) | (missing) | | (unavailable | 14:32:08 [facility] | | | + + + + + + + + + | Result panel 877 | + + + + + + + + + | | 2022-07-25 | [facility] | NEGATIVE | (missing) | (missing) | | (unavailable | 14:32:08 [facility] | | | + + + + + + + + + | Result panel 878 | + + + + + +-------+ + + | | 2022-07-25 | [facility] | 0-1 | (missing) | (missing) | | (unavailable | 14:32:08 [facility] | | | + + + +-------+ + + + + | Result panel 879 | + + + + + +-------+ + + | | 2022-07-25 | [facility] | 4-6 | (missing) | (missing) | | (unavailable | 14:32:08 [facility] | | | + + + +-------+ + + + + | Result panel 880 | + + + + + + + + + | | 2022-07-25 | [facility] | SQUAMOUS 1+ | (missing) | (missing) | | (unavailable | 14:32:08 [facility] | | | + + + + + + + + + | Result panel 881 | + + + + + +------+ + + | | 2022-07-25 | [facility] | No | (missing) | (missing) | | (unavailable | 14:32:08 [facility] | | | + + + +------+ + + + + | Result panel 882 | + + + + + + + + + | | 2022-07-25 | [facility] | CLEAN CATCH | (missing) | (missing) | | (unavailable | 14:32:08 [facility] | | | + + + + + + + + + | Result panel 883 | + + + + + +--------+ + + | | 2022-08-01 | [facility] | 10.6 | (missing) | (missing) | | (unavailable | 09:08:08 [facility] | | + + + +--------+ + + + + | Result panel 884 | + + + + + +--------+ + + | | 2022-08-01 | [facility] | 5.27 | (missing) | (missing) | | (unavailable | 09:08:08 [facility] | | | + + + +--------+ + + + + | Result panel 885 | + + + + + +--------+ + + | | 2022-08-01 | [facility] | 16.0 | (missing) | (missing) | | (unavailable | 09:08:08 | [facility] | | | | + + + +--------+ + + + + | Result panel 886 | + + + + + +--------+ + + | | 2022-08-01 | [facility] | 48.9 | (missing) | (missing) | | (unavailable | 09:08:08 [facility] | | | + + + +--------+ + + + + | Result panel 887 | + + + + + +--------+ + + | | 2022-08-01 | [facility] | 92.7 | (missing) | (missing) | | (unavailable | 09:08:08 [facility] | | | + + + +--------+ + + + + | Result panel 888 | + + + + + +--------+ + + | | 2022-08-01 | [facility] | 30.4 | (missing) | (missing) | | (unavailable | 09:08:08 [facility] | | | + + + +--------+ + + + + | Result panel 889 | + + + + + +--------+ + + | | 2022-08-01 | [facility] | 32.7 | (missing) | (missing) | | (unavailable | 09:08:08 [facility] | | | + + + +--------+ + + + + | Result panel 890 | + + + + + +--------+ + + | | 2022-08-01 | [facility] | 14.3 | (missing) | (missing) | | (unavailable | 09:08:08 [facility] | | | + + + +--------+ + + + + | Result panel 891 | + + + + + +-------+ + + | | 2022-08-01 | [facility] | 249 | (missing) | (missing) | | (unavailable | 09:08:08 [facility] | | | + + + +-------+ + + + + | Result panel 892 | + + + + + +--------+ + + | | 2022-08-01 | [facility] | 70.5 | (missing) | (missing) | | (unavailable | 09:08:08 [facility] | | | + + + +--------+ + + + + | Result panel 893 | + + + + + +--------+ + + | | 2022-08-01 | [facility] | 25.1 | (missing) | (missing) | | (unavailable | 09:08:08 [facility] | | | + + + +--------+ + + + + | Result panel 894 | + + + + + +-------+ + + | | 2022-08-01 | [facility] | 1.9 | (missing) | (missing) | | (unavailable | 09:08:08 [facility] | | | + + + +-------+ + + + + | Result panel 895 | + + + + + +-------+ + + | | 2022-08-01 | [facility] | 1.2 | (missing) | (missing) | | (unavailable | 09:08:08 [facility] | | | + + + +-------+ + + + + | Result panel 896 | + + + + + +-------+ + + | | 2022-08-01 | [facility] | 1.3 | (missing) | (missing) | | (unavailable | 09:08:08 [facility] | | | + + + +-------+ + + + + | Result panel 897 | + + + + + +-------+---------+ + | | 2022-08-01 | [facility] | 235 | mg/dL | (missing) | | (unavailable | 09:08:08 [facility] | | | + + + +-------+---------+ + + + | Result panel 898 | + + + + + +------+---------+ + | | 2022-08-01 | [facility] | 15 | mg/dL | (missing) | | (unavailable | 09:08:08 [facility] | | | + + + +------+---------+ + + + | Result panel 899 | + + + + + +--------+---------+ + | | 2022-08-01 | [facility] | 1.04 | mg/dL | (missing) | | (unavailable | 09:08:08 [facility] | | | + + + +--------+---------+ + + + | Result panel 900 | + + + + + +------+ + + | | 2022-08-01 | [facility] | 65 | (missing) | (missing) | | (unavailable | 09:08:08 [facility] | | | + + + +------+ + + + + | Result panel 901 | + + + + + +---------+ + + | | 2022-08-01 | [facility] | 14.42 | (missing) | (missing) | | (unavailable | 09:08:08 [facility] | | | + + + +---------+ + + + + | Result panel 902 | + + + + + +-------+ + + | | 2022-08-01 | [facility] | 139 | (missing) | (missing) | | (unavailable | 09:08:08 [facility] | | | + + + +-------+ + + + + | Result panel 903 | + + + + + +-------+ + + | | 2022-08-01 | [facility] | 4.7 | (missing) | (missing) | | (unavailable | 09:08:08 [facility] | | | + + + +-------+ + + + + | Result panel 904 | + + + + + +-------+ + + | | 2022-08-01 | [facility] | 100 | (missing) | (missing) | | (unavailable | 09:08:08 [facility] | | | + + + +-------+ + + + + | Result panel 905 | + + + + + +------+ + + | | 2022-08-01 | [facility] | 29 | (missing) | (missing) | | (unavailable | 09:08:08 [facility] | | | + + + +------+ + + + + | Result panel 906 | + + + + + +--------+ + + | | 2022-08-01 | [facility] | 14.7 | (missing) | (missing) | | (unavailable | 09:08:08 [facility] | | | + + + +--------+ + + + + | Result panel 907 | + + + + + +--------+---------+ + | | 2022-08-01 | [facility] | 10.1 | mg/dL | (missing) | | (unavailable | 09:08:08 [facility] | | | + + + +--------+---------+ + + + | Result panel 908 | + + + + + +-------+ + + | | 2022-08-01 | [facility] | 7.5 | (missing) | (missing) | | (unavailable | 09:08:08 [facility] | | | + + + +-------+ + + + + | Result panel 909 | + + + + + +-------+ + + | | 2022-08-01 | [facility] | 3.6 | (missing) | (missing) | | (unavailable | 09:08:08 [facility] | | | + + + +-------+ + + + + | Result panel 910 | + + + + + +-------+ + + | | 2022-08-01 | [facility] | 3.9 | (missing) | (missing) | | (unavailable | 09:08:08 [facility] | | | + + + +-------+ + + + + | Result panel 911 | + + + + + +--------+ + + | | 2022-08-01 | [facility] | 0.92 | (missing) | (missing) | | (unavailable | 09:08:08 [facility] | | | + + + +--------+ + + + + | Result panel 912 | + + + + + +-------+ + + | | 2022-08-01 | [facility] | 0.3 | (missing) | (missing) | | (unavailable | 09:08:08 [facility] | | | + + + +-------+ + + + + | Result panel 913 | + + + + + +------+ + + | | 2022-08-01 | [facility] | 40 | (missing) | (missing) | | (unavailable | 09:08:08 [facility] | | | + + + +------+ + + + + | Result panel 914 | + + + + + +------+ + + | | 2022-08-01 | [facility] | 60 | (missing) | (missing) | | (unavailable | 09:08:08 [facility] | | | + + + +------+ + + + + | Result panel 915 | + + + + + +-------+ + + | | 2022-08-01 | [facility] | 130 | (missing) | (missing) | | (unavailable | 09:08:08 [facility] | | | + + + +-------+ + + + + | Result panel 916 | + + + + + + + + + | | 2022-08-01 | [facility] | YELLOW | (missing) | (missing) | | (unavailable | 11:52:08 [facility] | | | + + + + + + + + + | Result panel 917 | + + + + + +---------+ + + | | 2022-08-01 | [facility] | CLEAR | (missing) | (missing) | | (unavailable | 11:52:08 [facility] | | | + + + +---------+ + + + + | Result panel 918 | + + + + + + + + + | | 2022-08-01 | [facility] | NEGATIVE | (missing) | (missing) | | (unavailable | 11:52:08 [facility] | | | + + + + + + + + + | Result panel 919 | + + + + + + + + + | | 2022-08-01 | [facility] | NEGATIVE | (missing) | (missing) | | (unavailable | 11:52:08 [facility] | | | + + + + + + + + + | Result panel 920 | + + + + + + + + + | | 2022-08-01 | [facility] | NEGATIVE | (missing) | (missing) | | (unavailable | 11:52:08 [facility] | | | + + + + + + + + + | Result panel 921 | + + + + + +---------+ + + | | 2022-08-01 | [facility] | 1.020 | (missing) | (missing) | | (unavailable | 11:52:08 [facility] | | | + + + +---------+ + + + + | Result panel 922 | + + + + + + + + + | | 2022-08-01 | [facility] | NEGATIVE | (missing) | (missing) | | (unavailable | 11:52:08 [facility] | | | + + + + + + + + + | Result panel 923 | + + + + + +-------+ + + | | 2022-08-01 | [facility] | 7.0 | (missing) | (missing) | | (unavailable | 11:52:08 [facility] | | | + + + +-------+ + + + + | Result panel 924 | + + + + + +---------+ + + | | 2022-08-01 | [facility] | >=300 | (missing) | (missing) | | (unavailable | 11:52:08 [facility] | | | + + + +---------+ + + + + | Result panel 925 | + + + + + + + + + | | 2022-08-01 | [facility] | NORMAL | (missing) | (missing) | | (unavailable | 11:52:08 [facility] | | | + + + + + + + + + | Result panel 926 | + + + + + + + + + | | 2022-08-01 | [facility] | POSITIVE | (missing) | (missing) | | (unavailable | 11:52:08 [facility] | | | + + + + + + + + + | Result panel 927 | + + + + + +---------+ + + | | 2022-08-01 | [facility] | TRACE | (missing) | (missing) | | (unavailable | 11:52:08 [facility] | | | + + + +---------+ + + + + | Result panel 928 | + + + + + +-------+ + + | | 2022-08-01 | [facility] | 0-1 | (missing) | (missing) | | (unavailable | 11:52:08 [facility] | | | + + + +-------+ + + + + | Result panel 929 | + + + + + +--------+ + + | | 2022-08-01 | [facility] | 7-11 | (missing) | (missing) | | (unavailable | 11:52:08 [facility] | | | + + + +--------+ + + + + | Result panel 930 | + + + + + + + + + | | 2022-08-01 | [facility] | SQUAMOUS 3+ | (missing) | (missing) | | (unavailable | 11:52:08 [facility] | | | + + + + + + + + + | Result panel 931 | + + + + + +------+ + + | | 2022-08-01 | [facility] | 4+ | (missing) | (missing) | | (unavailable | 11:52:08 [facility] | | | + + + +------+ + + + + | Result panel 932 | + + + + + +------+ + + | | 2022-08-01 | [facility] | No | (missing) | (missing) | | (unavailable | 11:52:08 | [facility] | | | | + + + +------+ + + + + | Result panel 933 | + + + + + + + + + | | 2022-08-01 | [facility] | CLEAN CATCH | (missing) | (missing) | | (unavailable | 11:52:08 | [facility] | | | | + + + + + + + + + | Result panel 934 | + + + + + +-------+ + + | | 2022-08-01 | [facility] | 2.3 | (missing) | (missing) | | (unavailable | 12:49:07 | [facility] | | | | + + + +-------+ + + + + | Result panel 935 | + + + + + +-------+ + + | | 2022-08-01 | [facility] | 2.3 | (missing) | (missing) | | (unavailable | 12:49:08 | [facility] | | | | + + + +-------+ + + + + | Result panel 936 | + + + + + +------+ + + | | 2022-08-19 | [facility] | 97 | (missing) | (missing) | | (unavailable | 15:07:07 | [facility] | | | | + + + +------+ + + + + | Result panel 937 | + + + + + +--------+ + + | | 2022-08-19 | [facility] | 13.4 | (missing) | (missing) | | (unavailable | 15:07:07 | [facility] | | | | + + + +--------+ + + + + | Result panel 938 | + + + + + +--------+ + + | | 2022-08-19 | [facility] | 5.17 | (missing) | (missing) | | (unavailable | 15:07:07 | [facility] | | | | + + + +--------+ + + + + | Result panel 939 | + + + + + +--------+ + + | | 2022-08-19 | [facility] | 16.1 | (missing) | (missing) | | (unavailable | 15:07:07 | [facility] | | | | + + + +--------+ + + + + | Result panel 940 | + + + + + +--------+ + + | | 2022-08-19 | [facility] | 47.2 | (missing) | (missing) | | (unavailable | 15:07:07 | [facility] | | | | + + + +--------+ + + + + | Result panel 941 | + + + + + +--------+ + + | | 2022-08-19 | [facility] | 91.4 | (missing) | (missing) | | (unavailable | 15:07:07 | [facility] | | | | + + + +--------+ + + + + | Result panel 942 | + + + + + +--------+ + + | | 2022-08-19 | [facility] | 31.2 | (missing) | (missing) | | (unavailable | 15:07:07 | [facility] | | | | + + + +--------+ + + + + | Result panel 943 | + + + + + +--------+ + + | | 2022-08-19 | [facility] | 34.2 | (missing) | (missing) | | (unavailable | 15:07:07 | [facility] | | | | + + + +--------+ + + + + | Result panel 944 | + + + + + +--------+ + + | | 2022-08-19 | [facility] | 14.1 | (missing) | (missing) | | (unavailable | 15:07:07 | [facility] | | | | + + + +--------+ + + + + | Result panel 945 | + + + + + +-------+ + + | | 2022-08-19 | [facility] | 291 | (missing) | (missing) | | (unavailable | 15:07:07 | [facility] | | | | + + + +-------+ + + + + | Result panel 946 | + + + + + +--------+ + + | | 2022-08-19 | [facility] | 67.3 | (missing) | (missing) | | (unavailable | 15:07:07 | [facility] | | | | + + + +--------+ + + + + | Result panel 947 | + + + + + +--------+ + + | | 2022-08-19 | [facility] | 26.1 | (missing) | (missing) | | (unavailable | 15:07:07 | [facility] | | | | + + + +--------+ + + + + | Result panel 948 | + + + + + +-------+ + + | | 2022-08-19 | [facility] | 3.2 | (missing) | (missing) | | (unavailable | 15:07:07 | [facility] | | | | + + + +-------+ + + + + | Result panel 949 | + + + + + +-------+ + + | | 2022-08-19 | [facility] | 1.7 | (missing) | (missing) | | (unavailable | 15:07:07 | [facility] | | | | + + + +-------+ + + + + | Result panel 950 | + + + + + +-------+ + + | | 2022-08-19 | [facility] | 1.7 | (missing) | (missing) | | (unavailable | 15:07:07 | [facility] | | | | + + + +-------+ + + + + | Result panel 951 | + + + + + +-------+---------+ + | | 2022-08-19 | [facility] | 276 | mg/dL | (missing) | | (unavailable | [facility]07 [facility] | | | + + + +-------+---------+ + + + | Result panel 952 | + + + + + +------+---------+ + | | 2022-08-19 | [facility] | 20 | mg/dL | (missing) | | (unavailable | [facility]07[facility]07 [facility] | | | + + + +------+---------+ + + + | Result panel 953 | + + + + + +--------+---------+ + | | 2022-08-19 | [facility] | 1.49 | mg/dL | (missing) | | (unavailable | [facility]07:07 [facility] | | | + + + +--------+---------+ + + + | Result panel 954 | + + + + + +------+ + + | | 2022-08-19 | [facility] | 42 | (missing) | (missing) | | (unavailable | [facility]07[facility] | | | + + + +------+ + + + + | Result panel 955 | + + + + + +---------+ + + | | 2022-08-19 | [facility] | 13.42 | (missing) | (missing) | | (unavailable | [facility] | | | + + + +---------+ + + + + | Result panel 956 | + + + + + +-------+ + + | | 2022-08-19 | [facility] | 136 | (missing) | (missing) | | (unavailable | [facility]07[facility] | | | + + + +-------+ + + + + | Result panel 957 | + + + + + +-------+ + + | | 2022-08-19 | [facility] | 4.2 | (missing) | (missing) | | (unavailable | [facility] | | | + + + +-------+ + + + + | Result panel 958 | + + + + + +------+ + + | | 2022-08-19 | [facility] | 98 | (missing) | (missing) | | (unavailable | [facility] | | | + + + +------+ + + + + | Result panel 959 | + + + + + +------+ + + | | 2022-08-19 | [facility] | 29 | (missing) | (missing) | | (unavailable | [facility] | | | + + + +------+ + + + + | Result panel 960 | + + + + + +--------+ + + | | 2022-08-19 | [facility] | 13.2 | (missing) | (missing) | | (unavailable | [facility] | | + + + +--------+ + + + + | Result panel 961 | + + + + + +-------+---------+ + | | 2022-08-19 | [facility] | 9.8 | mg/dL | (missing) | | (unavailable | [facility]07:07 [facility] | | | + + + +-------+---------+ + + + | Result panel 962 | + + + + + +-------+ + + | | 2022-08-19 | [facility] | 7.3 | (missing) | (missing) | | (unavailable | [facility] | | | + + + +-------+ + + + + | Result panel 963 | + + + + + +-------+ + + | | 2022-08-19 | [facility] | 3.5 | (missing) | (missing) | | (unavailable | [facility]07 [facility] | | | + + + +-------+ + + + + | Result panel 964 | + + + + + +-------+ + + | | 2022-08-19 | [facility] | 3.8 | (missing) | (missing) | | (unavailable | [facility] | | | + + + +-------+ + + + + | Result panel 965 | + + + + + +--------+ + + | | 2022-08-19 | [facility] | 0.92 | (missing) | (missing) | | (unavailable | [facility]07 [facility] | | | + + + +--------+ + + + + | Result panel 966 | + + + + + +-------+ + + | | 2022-08-19 | [facility] | 0.3 | (missing) | (missing) | | (unavailable | [facility] | | | + + + +-------+ + + + + | Result panel 967 | + + + + + +------+ + + | | 2022-08-19 | [facility] | 38 | (missing) | (missing) | | (unavailable | [facility] | | | + + + +------+ + + + + | Result panel 968 | + + + + + +------+ + + | | 2022-08-19 | [facility] | 57 | (missing) | (missing) | | (unavailable | [facility]07[facility] | | | + + + +------+ + + + + | Result panel 969 | + + + + + +-------+ + + | | 2022-08-19 | [facility] | 127 | (missing) | (missing) | | (unavailable | [facility]07[facility]07 [facility] | | | + + + +-------+ + + + + | Result panel 970 | + + + + + +------+ + + | | 2022-08-19 | [facility] | 97 | (missing) | (missing) | | (unavailable | [facility]07[facility]07 [facility] | | | + + + +------+ + + + + | Result panel 971 | + + + + + +------+ + + | | 2022-08-19 | [facility] | 97 | (missing) | (missing) | | (unavailable | [facility]07[facility] | | | + + + +------+ + + + + | Result panel 972 | + + + + + +--------+ + + | | 2022-08-19 | [facility] | 13.4 | (missing) | (missing) | | (unavailable | [facility] | | | + + + +--------+ + + + + | Result panel 973 | + + + + + +--------+ + + | | 2022-08-19 | [facility] | 5.17 | (missing) | (missing) | | (unavailable | [facility] | | | + + + +--------+ + + + + | Result panel 974 | + + + + + +--------+ + + | | 2022-08-19 | [facility] | 16.1 | (missing) | (missing) | | (unavailable | [facility] | | | + + + +--------+ + + + + | Result panel 975 | + + + + + +--------+ + + | | 2022-08-19 | [facility] | 47.2 | (missing) | (missing) | | (unavailable | [facility] | | | + + + +--------+ + + + + | Result panel 976 | + + + + + +--------+ + + | | 2022-08-19 | [facility] | 91.4 | (missing) | (missing) | | (unavailable | [facility] | | | + + + +--------+ + + + + | Result panel 977 | + + + + + +--------+ + + | | 2022-08-19 | [facility] | 31.2 | (missing) | (missing) | | (unavailable | [facility] | | | + + + +--------+ + + + + | Result panel 978 | + + + + + +--------+ + + | | 2022-08-19 | [facility] | 34.2 | (missing) | (missing) | | (unavailable | [facility]07[facility]07 [facility] | | | + + + +--------+ + + + + | Result panel 979 | + + + + + +--------+ + + | | 2022-08-19 | [facility] | 14.1 | (missing) | (missing) | | (unavailable | [facility]07[facility] | | | + + + +--------+ + + + + | Result panel 980 | + + + + + +-------+ + + | | 2022-08-19 | [facility] | 291 | (missing) | (missing) | | (unavailable | [facility]07[facility]07 [facility] | | | + + + +-------+ + + + + | Result panel 981 | + + + + + +--------+ + + | | 2022-08-19 | [facility] | 67.3 | (missing) | (missing) | | (unavailable | [facility] | | | + + + +--------+ + + + + | Result panel 982 | + + + + + +--------+ + + | | 2022-08-19 | [facility] | 26.1 | (missing) | (missing) | | (unavailable | [facility]07[facility] | | | + + + +--------+ + + + + | Result panel 983 | + + + + + +-------+ + + | | 2022-08-19 | [facility] | 3.2 | (missing) | (missing) | | (unavailable | [facility]07[facility] | | | + + + +-------+ + + + + | Result panel 984 | + + + + + +-------+ + + | | 2022-08-19 | [facility] | 1.7 | (missing) | (missing) | | (unavailable | [facility]07[facility]07 [facility] | | | + + + +-------+ + + + + | Result panel 985 | + + + + + +-------+ + + | | 2022-08-19 | [facility] | 1.7 | (missing) | (missing) | | (unavailable | [facility]07[facility] | | | + + + +-------+ + + + + | Result panel 986 | + + + + + +-------+---------+ + | | 2022-08-19 | [facility] | 276 | mg/dL | (missing) | | (unavailable | [facility]07:07 [facility] | | | + + + +-------+---------+ + + + | Result panel 987 | + + + + + +------+---------+ + | | 2022-08-19 | [facility] | 20 | mg/dL | (missing) | | (unavailable | [facility]07[facility]07 [facility] | | | + + + +------+---------+ + + + | Result panel 988 | + + + + + +--------+---------+ + | | 2022-08-19 | [facility] | 1.49 | mg/dL | (missing) | | (unavailable | [facility]07[facility]07 [facility] | | | + + + +--------+---------+ + + + | Result panel 989 | + + + + + +------+ + + | | 2022-08-19 | [facility] | 42 | (missing) | (missing) | | (unavailable | [facility]07[facility]07 [facility] | | | + + + +------+ + + + + | Result panel 990 | + + + + + +---------+ + + | | 2022-08-19 | [facility] | 13.42 | (missing) | (missing) | | (unavailable | [facility]07[facility]07 [facility] | | | + + + +---------+ + + + + | Result panel 991 | + + + + + +-------+ + + | | 2022-08-19 | [facility] | 136 | (missing) | (missing) | | (unavailable | [facility]07[facility]07 [facility] | | | + + + +-------+ + + + + | Result panel 992 | + + + + + +-------+ + + | | 2022-08-19 | [facility] | 4.2 | (missing) | (missing) | | (unavailable | [facility]07[facility]07 [facility] | | | + + + +-------+ + + + + | Result panel 993 | + + + + + +------+ + + | | 2022-08-19 | [facility] | 98 | (missing) | (missing) | | (unavailable | [facility]07[facility]07 [facility] | | | + + + +------+ + + + + | Result panel 994 | + + + + + +------+ + + | | 2022-08-19 | [facility] | 29 | (missing) | (missing) | | (unavailable | [facility]07[facility]07 [facility] | | | + + + +------+ + + + + | Result panel 995 | + + + + + +--------+ + + | | 2022-08-19 | [facility] | 13.2 | (missing) | (missing) | | (unavailable | [facility]07[facility]07 [facility] | | | + + + +--------+ + + + + | Result panel 996 | + + + + + +-------+---------+ + | | 2022-08-19 | [facility] | 9.8 | mg/dL | (missing) | | (unavailable | [facility]07[facility]07 [facility] | | | + + + +-------+---------+ + + + | Result panel 997 | + + + + + +-------+ + + | | 2022-08-19 | [facility] | 7.3 | (missing) | (missing) | | (unavailable | [facility] | | | + + + +-------+ + + + + | Result panel 998 | + + + + + +-------+ + + | | 2022-08-19 | [facility] | 3.5 | (missing) | (missing) | | (unavailable | [facility]07[facility]07 [facility] | | | + + + +-------+ + + + + | Result panel 999 | + + + + + +-------+ + + | | 2022-08-19 | [facility] | 3.8 | (missing) | (missing) | | (unavailable | [facility]07 [facility] | | | + + + +-------+ + + + + | Result panel 1000 | + + + + + +--------+ + + | | 2022-08-19 | [facility] | 0.92 | (missing) | (missing) | | (unavailable | [facility]07[facility]07 [facility] | | | + + + +--------+ + + + + | Result panel 1001 | + + + + + +-------+ + + | | 2022-08-19 | [facility] | 0.3 | (missing) | (missing) | | (unavailable | [facility]07 [facility] | | | + + + +-------+ + + + + | Result panel 1002 | + + + + + +------+ + + | | 2022-08-19 | [facility] | 38 | (missing) | (missing) | | (unavailable | [facility]07 [facility] | | | + + + +------+ + + + + | Result panel 1003 | + + + + + +------+ + + | | 2022-08-19 | [facility] | 57 | (missing) | (missing) | | (unavailable | [facility]07[facility] | | | + + + +------+ + + + + | Result panel 1004 | + + + + + +-------+ + + | | 2022-08-19 | [facility] | 127 | (missing) | (missing) | | (unavailable | [facility]07:07 [facility] | | | + + + +-------+ + + + + | Result panel 1005 | + + + + + +------+ + + | | 2022-08-19 | [facility] | 97 | (missing) | (missing) | | (unavailable | [facility]07[facility]07 [facility] | | | + + + +------+ + + + + | Result panel 1006 | + + + + + + + + + | | 2022-08-19 | [facility] | YELLOW | (missing) | (missing) | | (unavailable | [facility]30:07 [facility] | | | + + + + + + + + + | Result panel 1007 | + + + + + +---------+ + + | | 2022-08-19 | [facility] | CLEAR | (missing) | (missing) | | (unavailable | [facility]30:07 [facility] | | | + + + +---------+ + + + + | Result panel 1008 | + + + + + +---------+ + + | | 2022-08-19 | [facility] | LARGE | (missing) | (missing) | | (unavailable | [facility]30:07 [facility] | | | + + + +---------+ + + + + | Result panel 1009 | + + + + + + + + + | | 2022-08-19 | [facility] | NEGATIVE | (missing) | (missing) | | (unavailable | [facility]30[facility]07 [facility] | | | + + + + + + + + + | Result panel 1010 | + + + + + + + + + | | 2022-08-19 | [facility] | NEGATIVE | (missing) | (missing) | | (unavailable | [facility]30[facility]07 [facility] | | | + + + + + + + + + | Result panel 1011 | + + + + + +---------+ + + | | 2022-08-19 | [facility] | 1.025 | (missing) | (missing) | | (unavailable | [facility]30:07 [facility] | | | + + + +---------+ + + + + | Result panel 1012 | + + + + + + + + + | | 2022-08-19 | [facility] | NEGATIVE | (missing) | (missing) | | (unavailable | [facility]30[facility]07 [facility] | | | + + + + + + + + + | Result panel 1013 | + + + + + +-------+ + + | | 2022-08-19 | [facility] | 6.0 | (missing) | (missing) | | (unavailable | [facility]30:07 [facility] | | | + + + +-------+ + + + + | Result panel 1014 | + + + + + +---------+ + + | | 2022-08-19 | [facility] | >=300 | (missing) | (missing) | | (unavailable | [facility]30:07 [facility] | | | + + + +---------+ + + + + | Result panel 1015 | + + + + + + + + + | | 2022-08-19 | [facility] | NORMAL | (missing) | (missing) | | (unavailable | [facility]30[facility]07 [facility] | | | + + + + + + + + + | Result panel 1016 | + + + + + + + + + | | 2022-08-19 | [facility] | POSITIVE | (missing) | (missing) | | (unavailable | [facility]30:07 [facility] | | | + + + + + + + + + | Result panel 1017 | + + + + + + + + + | | 2022-08-19 | [facility] | NEGATIVE | (missing) | (missing) | | (unavailable | [facility]30[facility]07 [facility] | | | + + + + + + + + + | Result panel 1018 | + + + + + +-------+ + + | | 2022-08-19 | [facility] | 0-1 | (missing) | (missing) | | (unavailable | [facility]30[facility]07 [facility] | | | + + + +-------+ + + + + | Result panel 1019 | + + + + + +-------+ + + | | 2022-08-19 | [facility] | 0-1 | (missing) | (missing) | | (unavailable | [facility]30[facility]07 [facility] | | | + + + +-------+ + + + + | Result panel 1020 | + + + + + +-----+ + + | | 2022-08-19 | [facility] | 0 | (missing) | (missing) | | (unavailable | [facility]30[facility]07 [facility] | | | + + + +-----+ + + + + | Result panel 1021 | + + + + + + + + + | | 2022-08-19 | [facility] | NONE SEEN | (missing) | (missing) | | (unavailable | [facility]30[facility] | | | + + + + + + + + + | Result panel 1022 | + + + + + + + + + | | 2022-08-19 | [facility] | NONE SEEN | (missing) | (missing) | | (unavailable | [facility]30[facility]07 [facility] | | | + + + + + + + + + | Result panel 1023 | + + + + + + + + + | | 2022-08-19 | [facility] | NONE SEEN | (missing) | (missing) | | (unavailable | [facility]30[facility]07 [facility] | | | + + + + + + + + + | Result panel 1024 | + + + + + +------+ + + | | 2022-08-19 | [facility] | No | (missing) | (missing) | | (unavailable | [facility]30:07 [facility] | | | + + + +------+ + + + + | Result panel 1025 | + + + + + +--------+ + + | | 2022-08-19 | [facility] | CATH | (missing) | (missing) | | (unavailable | [facility]30:07 [facility] | | | + + + +--------+ + + + + | Result panel 1026 | + + + + + + + + + | | 2022-08-19 | [facility] | YELLOW | (missing) | (missing) | | (unavailable | [facility]30[facility]07 [facility] | | | + + + + + + + + + | Result panel 1027 | + + + + + +---------+ + + | | 2022-08-19 | [facility] | CLEAR | (missing) | (missing) | | (unavailable | [facility]30:07 [facility] | | | + + + +---------+ + + + + | Result panel 1028 | + + + + + +---------+ + + | | 2022-08-19 | [facility] | LARGE | (missing) | (missing) | | (unavailable | [facility]30:07 [facility] | | | + + + +---------+ + + + + | Result panel 1029 | + + + + + + + + + | | 2022-08-19 | [facility] | NEGATIVE | (missing) | (missing) | | (unavailable | [facility]30[facility]07 [facility] | | | + + + + + + + + + | Result panel 1030 | + + + + + + + + + | | 2022-08-19 | [facility] | NEGATIVE | (missing) | (missing) | | (unavailable | [facility]30[facility]07 [facility] | | | + + + + + + + + + | Result panel 1031 | + + + + + +---------+ + + | | 2022-08-19 | [facility] | 1.025 | (missing) | (missing) | | (unavailable | [facility]30:07 [facility] | | | + + + +---------+ + + + + | Result panel 1032 | + + + + + + + + + | | 2022-08-19 | [facility] | NEGATIVE | (missing) | (missing) | | (unavailable | [facility]30[facility]07 [facility] | | | + + + + + + + + + | Result panel 1033 | + + + + + +-------+ + + | | 2022-08-19 | [facility] | 6.0 | (missing) | (missing) | | (unavailable | [facility]30[facility]07 [facility] | | | + + + +-------+ + + + + | Result panel 1034 | + + + + + +---------+ + + | | 2022-08-19 | [facility] | >=300 | (missing) | (missing) | | (unavailable | [facility]30:07 [facility] | | | + + + +---------+ + + + + | Result panel 1035 | + + + + + + + + + | | 2022-08-19 | [facility] | NORMAL | (missing) | (missing) | | (unavailable | [facility]30[facility]07 [facility] | | | + + + + + + + + + | Result panel 1036 | + + + + + + + + + | | 2022-08-19 | [facility] | POSITIVE | (missing) | (missing) | | (unavailable | [facility]30[facility]07 [facility] | | | + + + + + + + + + | Result panel 1037 | + + + + + + + + + | | 2022-08-19 | [facility] | NEGATIVE | (missing) | (missing) | | (unavailable | [facility]30[facility]07 [facility] | | | + + + + + + + + + | Result panel 1038 | + + + + + +-------+ + + | | 2022-08-19 | [facility] | 0-1 | (missing) | (missing) | | (unavailable | [facility]30[facility]07 [facility] | | | + + + +-------+ + + + + | Result panel 1039 | + + + + + +-------+ + + | | 2022-08-19 | [facility] | 0-1 | (missing) | (missing) | | (unavailable | [facility]30[facility]07 [facility] | | | + + + +-------+ + + + + | Result panel 1040 | + + + + + +-----+ + + | | 2022-08-19 | [facility] | 0 | (missing) | (missing) | | (unavailable | [facility]30[facility]07 [facility] | | | + + + +-----+ + + + + | Result panel 1041 | + + + + + + + + + | | 2022-08-19 | [facility] | NONE SEEN | (missing) | (missing) | | (unavailable | [facility]30[facility] | | | + + + + + + + + + | Result panel 1042 | + + + + + + + + + | | 2022-08-19 | [facility] | NONE SEEN | (missing) | (missing) | | (unavailable | [facility]30[facility]07 [facility] | | | + + + + + + + + + | Result panel 1043 | + + + + + + + + + | | 2022-08-19 | [facility] | NONE SEEN | (missing) | (missing) | | (unavailable | [facility]30[facility] | | | + + + + + + + + + | Result panel 1044 | + + + + + +------+ + + | | 2022-08-19 | [facility] | No | (missing) | (missing) | | (unavailable | [facility]30[facility]07 [facility] | | | + + + +------+ + + + + | Result panel 1045 | + + + + + +--------+ + + | | 2022-08-19 | [facility] | CATH | (missing) | (missing) | | (unavailable | [facility]30:07 [facility] | | | + + + +--------+ + + + + | Result panel 1046 | + + + + + + + + + | | 2022-08-19 | [facility] | YELLOW | (missing) | (missing) | | (unavailable | [facility]30[facility]07 [facility] | | | + + + + + + + + + | Result panel 1047 | + + + + + +---------+ + + | | 2022-08-19 | [facility] | CLEAR | (missing) | (missing) | | (unavailable | [facility]30[facility]07 [facility] | | | + + + +---------+ + + + + | Result panel 1048 | + + + + + +---------+ + + | | 2022-08-19 | [facility] | LARGE | (missing) | (missing) | | (unavailable | [facility]30:07 [facility] | | | + + + +---------+ + + + + | Result panel 1049 | + + + + + + + + + | | 2022-08-19 | [facility] | NEGATIVE | (missing) | (missing) | | (unavailable | [facility]30[facility] | | | + + + + + + + + + | Result panel 1050 | + + + + + + + + + | | 2022-08-19 | [facility] | NEGATIVE | (missing) | (missing) | | (unavailable | [facility]30[facility] | | | + + + + + + + + + | Result panel 1051 | + + + + + +---------+ + + | | 2022-08-19 | [facility] | 1.025 | (missing) | (missing) | | (unavailable | [facility]30[facility]07 [facility] | | | + + + +---------+ + + + + | Result panel 1052 | + + + + + + + + + | | 2022-08-19 | [facility] | NEGATIVE | (missing) | (missing) | | (unavailable | [facility]30[facility]07 [facility] | | | + + + + + + + + + | Result panel 1053 | + + + + + +-------+ + + | | 2022-08-19 | [facility] | 6.0 | (missing) | (missing) | | (unavailable | [facility]30:07 [facility] | | | + + + +-------+ + + + + | Result panel 1054 | + + + + + +---------+ + + | | 2022-08-19 | [facility] | >=300 | (missing) | (missing) | | (unavailable | [facility]30:07 [facility] | | | + + + +---------+ + + + + | Result panel 1055 | + + + + + + + + + | | 2022-08-19 | [facility] | NORMAL | (missing) | (missing) | | (unavailable | [facility]30[facility] | | | + + + + + + + + + | Result panel 1056 | + + + + + + + + + | | 2022-08-19 | [facility] | POSITIVE | (missing) | (missing) | | (unavailable | [facility]30[facility]07 [facility] | | | + + + + + + + + + | Result panel 1057 | + + + + + + + + + | | 2022-08-19 | [facility] | NEGATIVE | (missing) | (missing) | | (unavailable | 15:30:07 [facility] | | | | + + + + + + + + + | Result panel 1058 | + + + + + +-------+ + + | | 2022-08-19 | [facility] | 0-1 | (missing) | (missing) | | (unavailable | 15:30:07 [facility] | | | | + + + +-------+ + + + + | Result panel 1059 | + + + + + +-------+ + + | | 2022-08-19 | [facility] | 0-1 | (missing) | (missing) | | (unavailable | 15:30:07 [facility] | | | | + + + +-------+ + + + + | Result panel 1060 | + + + + + +-----+ + + | | 2022-08-19 | [facility] | 0 | (missing) | (missing) | | (unavailable | 15:30:07 [facility] | | | | + + + +-----+ + + + + | Result panel 1061 | + + + + + + + + + | | 2022-08-19 | [facility] | NONE SEEN | (missing) | (missing) | | (unavailable | 15:30:07 [facility] | | | | + + + + + + + + + | Result panel 1062 | + + + + + + + + + | | 2022-08-19 | [facility] | NONE SEEN | (missing) | (missing) | | (unavailable | 15:30:07 [facility] | | | | + + + + + + + + + | Result panel 1063 | + + + + + + + + + | | 2022-08-19 | [facility] | NONE SEEN | (missing) | (missing) | | (unavailable | 15:30:07 [facility] | | | | + + + + + + + + + | Result panel 1064 | + + + + + +------+ + + | | 2022-08-19 | [facility] | No | (missing) | (missing) | | (unavailable | 15:30:07 [facility] | | | | + + + +------+ + + + + | Result panel 1065 | + + + + + +--------+ + + | | 2022-08-19 | [facility] | CATH | (missing) | (missing) | | (unavailable | 15:30:07 [facility] | | | | + + + +--------+ + + + + | Result panel 1066 | + + + + + + + + + | | 2022-08-19 | [facility] | YELLOW | (missing) | (missing) | | (unavailable | 15:30:07 [facility] | | | | + + + + + + + + + | Result panel 1067 | + + + + + +---------+ + + | | 2022-08-19 | [facility] | CLEAR | (missing) | (missing) | | (unavailable | 15:30:07 [facility] | | | | + + + +---------+ + + + + | Result panel 1068 | + + + + + +---------+ + + | | 2022-08-19 | [facility] | LARGE | (missing) | (missing) | | (unavailable | 15:30:07 [facility] | | | | + + + +---------+ + + + + | Result panel 1069 | + + + + + + + + + | | 2022-08-19 | [facility] | NEGATIVE | (missing) | (missing) | | (unavailable | 15:30:07 [facility] | | | | + + + + + + + + + | Result panel 1070 | + + + + + + + + + | | 2022-08-19 | [facility] | NEGATIVE | (missing) | (missing) | | (unavailable | 15:30:07 [facility] | | | | + + + + + + + + + | Result panel 1071 | + + + + + +---------+ + + | | 2022-08-19 | [facility] | 1.025 | (missing) | (missing) | | (unavailable | 15:30:07 [facility] | | | | + + + +---------+ + + + + | Result panel 1072 | + + + + + + + + + | | 2022-08-19 | [facility] | NEGATIVE | (missing) | (missing) | | (unavailable | 15:30:07 [facility] | | | | + + + + + + + + + | Result panel 1073 | + + + + + +-------+ + + | | 2022-08-19 | [facility] | 6.0 | (missing) | (missing) | | (unavailable | 15:30:07 [facility] | | | | + + + +-------+ + + + + | Result panel 1074 | + + + + + +---------+ + + | | 2022-08-19 | [facility] | >=300 | (missing) | (missing) | | (unavailable | 15:30:07 [facility] | | | | + + + +---------+ + + + + | Result panel 1075 | + + + + + + + + + | | 2022-08-19 | [facility] | NORMAL | (missing) | (missing) | | (unavailable | 15:30:07 [facility] | | | + + + + + + + + + | Result panel 1076 | + + + + + + + + + | | 2022-08-19 | [facility] | POSITIVE | (missing) | (missing) | | (unavailable | 15:30:07 [facility] | | | + + + + + + + + + | Result panel 1077 | + + + + + + + + + | | 2022-08-19 | [facility] | NEGATIVE | (missing) | (missing) | | (unavailable | 15:30:07 [facility] | | | + + + + + + + + + | Result panel 1078 | + + + + + +-------+ + + | | 2022-08-19 | [facility] | 0-1 | (missing) | (missing) | | (unavailable | 15:30:07 [facility] | | | + + + +-------+ + + + + | Result panel 1079 | + + + + + +-------+ + + | | 2022-08-19 | [facility] | 0-1 | (missing) | (missing) | | (unavailable | 15:30:07 [facility] | | | + + + +-------+ + + + + | Result panel 1080 | + + + + + +-----+ + + | | 2022-08-19 | [facility] | 0 | (missing) | (missing) | | (unavailable | 15:30:07 [facility] | | | + + + +-----+ + + + + | Result panel 1081 | + + + + + + + + + | | 2022-08-19 | [facility] | NONE SEEN | (missing) | (missing) | | (unavailable | 15:30:07 [facility] | | | + + + + + + + + + | Result panel 1082 | + + + + + + + + + | | 2022-08-19 | [facility] | NONE SEEN | (missing) | (missing) | | (unavailable | 15:30:07 [facility] | | | + + + + + + + + + | Result panel 1083 | + + + + + + + + + | | 2022-08-19 | [facility] | NONE SEEN | (missing) | (missing) | | (unavailable | 15:30:07 [facility] | | + + + + + + + + + | Result panel 1084 | + + + + + +------+ + + | | 2022-08-19 | [facility] | No | (missing) | (missing) | | (unavailable | 15:30:07 [facility] | | + + + +------+ + + + + | Result panel 1085 | + + + + + +--------+ + + | | 2022-08-19 | [facility] | CATH | (missing) | (missing) | | (unavailable | 15:30:07 [facility] | | | + + + +--------+ + + + + | Result panel 1086 | + + + + + +--------+ + + | | 2022-09-12 | [facility] | 10.1 | (missing) | (missing) | | (unavailable | 09:29:07 [facility] | | + + + +--------+ + + + + | Result panel 1087 | + + + + + +--------+ + + | | 2022-09-12 | [facility] | 4.73 | (missing) | (missing) | | (unavailable | 09:29:07 [facility] | | + + + +--------+ + + + + | Result panel 1088 | + + + + + +--------+ + + | | 2022-09-12 | [facility] | 15.0 | (missing) | (missing) | | (unavailable | 09:29:07 [facility] | | + + + +--------+ + + + + | Result panel 1089 | + + + + + +--------+ + + | | 2022-09-12 | [facility] | 43.7 | (missing) | (missing) | | (unavailable | 09:29:07 [facility] | | + + + +--------+ + + + + | Result panel 1090 | + + + + + +--------+ + + | | 2022-09-12 | [facility] | 92.4 | (missing) | (missing) | | (unavailable | 09:29:07 [facility] | | | + + + +--------+ + + + + | Result panel 1091 | + + + + + +--------+ + + | | 2022-09-12 | [facility] | 31.7 | (missing) | (missing) | | (unavailable | 09:29:07 [facility] | | + + + +--------+ + + + + | Result panel 1092 | + + + + + +--------+ + + | | 2022-09-12 | [facility] | 34.3 | (missing) | (missing) | | (unavailable | 09:29:07 [facility] | | + + + +--------+ + + + + | Result panel 109 | + + + + + +--------+ + + | | 2022-09-12 | [facility] | 13.7 | (missing) | (missing) | | (unavailable | 09:29:07 [facility] | | + + + +--------+ + + + + | Result panel 1094 | + + + + + +-------+ + + | | 2022-09-12 | [facility] | 256 | (missing) | (missing) | | (unavailable | 09:29:07 [facility] | | + + + +-------+ + + + + | Result panel 1095 | + + + + + +--------+ + + | | 2022-09-12 | [facility] | 66.0 | (missing) | (missing) | | (unavailable | 09::07 | [facility] | | | + + + +--------+ + + + + | Result panel 1096 | + + + + + +--------+ + + | | 2022-09-12 | [facility] | 24.8 | (missing) | (missing) | | (unavailable | 09:29:07 [facility] | | + + + +--------+ + + + + | Result panel 1097 | + + + + + +-------+ + + | | 2022-09-12 | [facility] | 5.6 | (missing) | (missing) | | (unavailable | 09:29:07 [facility] | | + + + +-------+ + + + + | Result panel 1098 | + + + + + +-------+ + + | | 2022-09-12 | [facility] | 2.4 | (missing) | (missing) | | (unavailable | 09:29:07 [facility] | | + + + +-------+ + + + + | Result panel 1099 | + + + + + +-------+ + + | | 2022-09-12 | [facility] | 1.2 | (missing) | (missing) | | (unavailable | 09:29:07 [facility] | | + + + +-------+ + + + + | Result panel 1100 | + + + + + +-------+---------+ + | | 2022-09-12 | [facility] | 274 | mg/dL | (missing) | | (unavailable | 09:29:07 [facility] | | | + + + +-------+---------+ + + + | Result panel 1101 | + + + + + +------+---------+ + | | 2022-09-12 | [facility] | 16 | mg/dL | (missing) | | (unavailable | :29:07 | [facility] | | | + + + +------+---------+ + + + | Result panel 1102 | + + + + + +--------+---------+ + | | 2022-09-12 | [facility] | 0.95 | mg/dL | (missing) | | (unavailable | 09:29:07 [facility] | | | + + + +--------+---------+ + + + | Result panel 1103 | + + + + + +------+ + + | | 2022-09-12 | [facility] | 72 | (missing) | (missing) | | (unavailable | 09:29:07 [facility] | | | + + + +------+ + + + + | Result panel 1104 | + + + + + +---------+ + + | | 2022-09-12 | [facility] | 16.84 | (missing) | (missing) | | (unavailable | 09:29:07 [facility] | | | + + + +---------+ + + + + | Result panel 1105 | + + + + + +-------+ + + | | 2022-09-12 | [facility] | 139 | (missing) | (missing) | | (unavailable | 09:29:07 [facility] | | | + + + +-------+ + + + + | Result panel 1106 | + + + + + +-------+ + + | | 2022-09-12 | [facility] | 4.6 | (missing) | (missing) | | (unavailable | 09:29:07 [facility] | | | + + + +-------+ + + + + | Result panel 1107 | + + + + + +-------+ + + | | 2022-09-12 | [facility] | 102 | (missing) | (missing) | | (unavailable | 09:29:07 [facility] | | | + + + +-------+ + + + + | Result panel 1108 | + + + + + +------+ + + | | 2022-09-12 | [facility] | 29 | (missing) | (missing) | | (unavailable | 09:29:07 [facility] | | + + + +------+ + + + + | Result panel 1109 | + + + + + +--------+ + + | | 2022-09-12 | [facility] | 12.6 | (missing) | (missing) | | (unavailable | 09:29:07 [facility] | | + + + +--------+ + + + + | Result panel 1110 | + + + + + +-------+---------+ + | | 2022-09-12 | [facility] | 9.0 | mg/dL | (missing) | | (unavailable | 09:29:07 [facility] | | | + + + +-------+---------+ + + + | Result panel 1111 | + + + + + +-------+ + + | | 2022-09-12 | [facility] | 7.1 | (missing) | (missing) | | (unavailable | 09:29:07 [facility] | | | + + + +-------+ + + + + | Result panel 1112 | + + + + + +-------+ + + | | 2022-09-12 | [facility] | 3.5 | (missing) | (missing) | | (unavailable | 09:29:07 [facility] | | + + + +-------+ + + + + | Result panel 1113 | + + + + + +-------+ + + | | 2022-09-12 | [facility] | 3.6 | (missing) | (missing) | | (unavailable | 09:29:07 [facility] | | + + + +-------+ + + + + | Result panel 1114 | + + + + + +--------+ + + | | 2022-09-12 | [facility] | 0.97 | (missing) | (missing) | | (unavailable | 09:29:07 [facility] | | + + + +--------+ + + + + | Result panel 1115 | + + + + + +-------+ + + | | 2022-09-12 | [facility] | 0.2 | (missing) | (missing) | | (unavailable | 09:29:07 [facility] | | + + + +-------+ + + + + | Result panel 1116 | + + + + + +------+ + + | | 2022-09-12 | [facility] | 28 | (missing) | (missing) | | (unavailable | 09:29:07 [facility] | | + + + +------+ + + + + | Result panel 1117 | + + + + + +------+ + + | | 2022-09-12 | [facility] | 51 | (missing) | (missing) | | (unavailable | 09:29:07 [facility] | | + + + +------+ + + + + | Result panel 1118 | + + + + + +-------+ + + | | 2022-09-12 | [facility] | 148 | (missing) | (missing) | | (unavailable | 09:29:07 [facility] | | + + + +-------+ + + + + | Result panel 1119 | + + + + + +--------+ + + | | 2022-09-12 | [facility] | 10.1 | (missing) | (missing) | | (unavailable | 09:29:07 [facility] | | + + + +--------+ + + + + | Result panel 1120 | + + + + + +--------+ + + | | 2022-09-12 | [facility] | 4.73 | (missing) | (missing) | | (unavailable | 09:29:07 [facility] | | + + + +--------+ + + + + | Result panel 1121 | + + + + + +--------+ + + | | 2022-09-12 | [facility] | 15.0 | (missing) | (missing) | | (unavailable | 09:29:07 [facility] | | + + + +--------+ + + + + | Result panel 112 | + + + + + +--------+ + + | | 2022-09-12 | [facility] | 43.7 | (missing) | (missing) | | (unavailable | 09:29:07 [facility] | | + + + +--------+ + + + + | Result panel 1123 | + + + + + +--------+ + + | | 2022-09-12 | [facility] | 92.4 | (missing) | (missing) | | (unavailable | 09:29:07 [facility] | | + + + +--------+ + + + + | Result panel 1124 | + + + + + +--------+ + + | | 2022-09-12 | [facility] | 31.7 | (missing) | (missing) | | (unavailable | 09:29:07 [facility] | | + + + +--------+ + + + + | Result panel 1125 | + + + + + +--------+ + + | | 2022-09-12 | [facility] | 34.3 | (missing) | (missing) | | (unavailable | 09:29:07 [facility] | | + + + +--------+ + + + + | Result panel 1126 | + + + + + +--------+ + + | | 2022-09-12 | [facility] | 13.7 | (missing) | (missing) | | (unavailable | 09:29:07 [facility] | | + + + +--------+ + + + + | Result panel 1127 | + + + + + +-------+ + + | | 2022-09-12 | [facility] | 256 | (missing) | (missing) | | (unavailable | 09:29:07 [facility] | | + + + +-------+ + + + + | Result panel 1128 | + + + + + +--------+ + + | | 2022-09-12 | [facility] | 66.0 | (missing) | (missing) | | (unavailable | 09:29:07 [facility] | | + + + +--------+ + + + + | Result panel 1129 | + + + + + +--------+ + + | | 2022-09-12 | [facility] | 24.8 | (missing) | (missing) | | (unavailable | 09:29:07 [facility] | | + + + +--------+ + + + + | Result panel 1130 | + + + + + +-------+ + + | | 2022-09-12 | [facility] | 5.6 | (missing) | (missing) | | (unavailable | 09:29:07 [facility] | | + + + +-------+ + + + + | Result panel 1131 | + + + + + +-------+ + + | | 2022-09-12 | [facility] | 2.4 | (missing) | (missing) | | (unavailable | 09:29:07 [facility] | | | + + + +-------+ + + + + | Result panel 1132 | + + + + + +-------+ + + | | 2022-09-12 | [facility] | 1.2 | (missing) | (missing) | | (unavailable | 09:29:07 [facility] | | | + + + +-------+ + + + + | Result panel 1133 | + + + + + +-------+---------+ + | | 2022-09-12 | [facility] | 274 | mg/dL | (missing) | | (unavailable | 09:29:07 [facility] | | | + + + +-------+---------+ + + + | Result panel 1134 | + + + + + +------+---------+ + | | 2022-09-12 | [facility] | 16 | mg/dL | (missing) | | (unavailable | 09:29:07 [facility] | | | + + + +------+---------+ + + + | Result panel 1135 | + + + + + +--------+---------+ + | | 2022-09-12 | [facility] | 0.95 | mg/dL | (missing) | | (unavailable | 09:29:07 [facility] | | | + + + +--------+---------+ + + + | Result panel 1136 | + + + + + +------+ + + | | 2022-09-12 | [facility] | 72 | (missing) | (missing) | | (unavailable | 09:29:07 [facility] | | | + + + +------+ + + + + | Result panel 1137 | + + + + + +---------+ + + | | 2022-09-12 | [facility] | 16.84 | (missing) | (missing) | | (unavailable | 09:29:07 [facility] | | | + + + +---------+ + + + + | Result panel 1138 | + + + + + +-------+ + + | | 2022-09-12 | [facility] | 139 | (missing) | (missing) | | (unavailable | 09:29:07 [facility] | | | + + + +-------+ + + + + | Result panel 1139 | + + + + + +-------+ + + | | 2022-09-12 | [facility] | 4.6 | (missing) | (missing) | | (unavailable | 09:29:07 [facility] | | | + + + +-------+ + + + + | Result panel 1140 | + + + + + +-------+ + + | | 2022-09-12 | [facility] | 102 | (missing) | (missing) | | (unavailable | 09:29:07 [facility] | | | + + + +-------+ + + + + | Result panel 1141 | + + + + + +------+ + + | | 2022-09-12 | [facility] | 29 | (missing) | (missing) | | (unavailable | 09:29:07 [facility] | | | + + + +------+ + + + + | Result panel 1142 | + + + + + +--------+ + + | | 2022-09-12 | [facility] | 12.6 | (missing) | (missing) | | (unavailable | 09:29:07 [facility] | | + + + +--------+ + + + + | Result panel 1143 | + + + + + +-------+---------+ + | | 2022-09-12 | [facility] | 9.0 | mg/dL | (missing) | | (unavailable | 09:29:07 [facility] | | | + + + +-------+---------+ + + + | Result panel 1144 | + + + + + +-------+ + + | | 2022-09-12 | [facility] | 7.1 | (missing) | (missing) | | (unavailable | 09:29:07 [facility] | | | + + + +-------+ + + + + | Result panel 1145 | + + + + + +-------+ + + | | 2022-09-12 | [facility] | 3.5 | (missing) | (missing) | | (unavailable | 09:29:07 [facility] | | | + + + +-------+ + + + + | Result panel 1146 | + + + + + +-------+ + + | | 2022-09-12 | [facility] | 3.6 | (missing) | (missing) | | (unavailable | 09:29:07 [facility] | | | + + + +-------+ + + + + | Result panel 1147 | + + + + + +--------+ + + | | 2022-09-12 | [facility] | 0.97 | (missing) | (missing) | | (unavailable | 09:29:07 [facility] | | | + + + +--------+ + + + + | Result panel 1148 | + + + + + +-------+ + + | | 2022-09-12 | [facility] | 0.2 | (missing) | (missing) | | (unavailable | 09:29:07 [facility] | | | + + + +-------+ + + + + | Result panel 1149 | + + + + + +------+ + + | | 2022-09-12 | [facility] | 28 | (missing) | (missing) | | (unavailable | 09:29:07 [facility] | | | + + + +------+ + + + + | Result panel 1150 | + + + + + +------+ + + | | 2022-09-12 | [facility] | 51 | (missing) | (missing) | | (unavailable | 09:29:07 [facility] | | | + + + +------+ + + + + | Result panel 1151 | + + + + + +-------+ + + | | 2022-09-12 | [facility] | 148 | (missing) | (missing) | | (unavailable | 09:29:07 [facility] | | | + + + +-------+ + + + + | Result panel 1152 | + + + + + +--------+ + + | | 2022-09-12 | [facility] | 10.1 | (missing) | (missing) | | (unavailable | 09:29:07 [facility] | | | + + + +--------+ + + + + | Result panel 1153 | + + + + + +--------+ + + | | 2022-09-12 | [facility] | 4.73 | (missing) | (missing) | | (unavailable | 09:29:07 [facility] | | + + + +--------+ + + + + | Result panel 1154 | + + + + + +--------+ + + | | 2022-09-12 | [facility] | 15.0 | (missing) | (missing) | | (unavailable | 09:29:07 [facility] | | | + + + +--------+ + + + + | Result panel 1155 | + + + + + +--------+ + + | | 2022-09-12 | [facility] | 43.7 | (missing) | (missing) | | (unavailable | 09:29:07 [facility] | | | + + + +--------+ + + + + | Result panel 1156 | + + + + + +--------+ + + | | 2022-09-12 | [facility] | 92.4 | (missing) | (missing) | | (unavailable | 09:29:07 [facility] | | | + + + +--------+ + + + + | Result panel 1157 | + + + + + +--------+ + + | | 2022-09-12 | [facility] | 31.7 | (missing) | (missing) | | (unavailable | 09:29:07 [facility] | | | + + + +--------+ + + + + | Result panel 1158 | + + + + + +--------+ + + | | 2022-09-12 | [facility] | 34.3 | (missing) | (missing) | | (unavailable | 09:29:07 [facility] | | | + + + +--------+ + + + + | Result panel 1159 | + + + + + +--------+ + + | | 2022-09-12 | [facility] | 13.7 | (missing) | (missing) | | (unavailable | 09:29:07 [facility] | | | + + + +--------+ + + + + | Result panel 1160 | + + + + + +-------+ + + | | 2022-09-12 | [facility] | 256 | (missing) | (missing) | | (unavailable | 09:29:07 [facility] | | | + + + +-------+ + + + + | Result panel 1161 | + + + + + +--------+ + + | | 2022-09-12 | [facility] | 66.0 | (missing) | (missing) | | (unavailable | 09:29:07 [facility] | | | + + + +--------+ + + + + | Result panel 1162 | + + + + + +--------+ + + | | 2022-09-12 | [facility] | 24.8 | (missing) | (missing) | | (unavailable | 09:29:07 [facility] | | | + + + +--------+ + + + + | Result panel 1163 | + + + + + +-------+ + + | | 2022-09-12 | [facility] | 5.6 | (missing) | (missing) | | (unavailable | 09:29:07 [facility] | | | + + + +-------+ + + + + | Result panel 1164 | + + + + + +-------+ + + | | 2022-09-12 | [facility] | 2.4 | (missing) | (missing) | | (unavailable | 09:29:07 [facility] | | | + + + +-------+ + + + + | Result panel 1165 | + + + + + +-------+ + + | | 2022-09-12 | [facility] | 1.2 | (missing) | (missing) | | (unavailable | 09:29:07 [facility] | | | + + + +-------+ + + + + | Result panel 1166 | + + + + + +-------+---------+ + | | 2022-09-12 | [facility] | 274 | mg/dL | (missing) | | (unavailable | 09:29:07 [facility] | | | + + + +-------+---------+ + + + | Result panel 1167 | + + + + + +------+---------+ + | | 2022-09-12 | [facility] | 16 | mg/dL | (missing) | | (unavailable | 09:29:07 [facility] | | | + + + +------+---------+ + + + | Result panel 1168 | + + + + + +--------+---------+ + | | 2022-09-12 | [facility] | 0.95 | mg/dL | (missing) | | (unavailable | 09:29:07 [facility] | | | + + + +--------+---------+ + + + | Result panel 1169 | + + + + + +------+ + + | | 2022-09-12 | [facility] | 72 | (missing) | (missing) | | (unavailable | 09:29:07 [facility] | | | + + + +------+ + + + + | Result panel 1170 | + + + + + +---------+ + + | | 2022-09-12 | [facility] | 16.84 | (missing) | (missing) | | (unavailable | 09:29:07 [facility] | | | + + + +---------+ + + + + | Result panel 1171 | + + + + + +-------+ + + | | 2022-09-12 | [facility] | 139 | (missing) | (missing) | | (unavailable | 09:29:07 [facility] | | | + + + +-------+ + + + + | Result panel 1172 | + + + + + +-------+ + + | | 2022-09-12 | [facility] | 4.6 | (missing) | (missing) | | (unavailable | 09:29:07 [facility] | | | + + + +-------+ + + + + | Result panel 1173 | + + + + + +-------+ + + | | 2022-09-12 | [facility] | 102 | (missing) | (missing) | | (unavailable | 09:29:07 [facility] | | | + + + +-------+ + + + + | Result panel 1174 | + + + + + +------+ + + | | 2022-09-12 | [facility] | 29 | (missing) | (missing) | | (unavailable | 09:29:07 [facility] | | | + + + +------+ + + + + | Result panel 1175 | + + + + + +--------+ + + | | 2022-09-12 | [facility] | 12.6 | (missing) | (missing) | | (unavailable | 09:29:07 [facility] | | | + + + +--------+ + + + + | Result panel 1176 | + + + + + +-------+---------+ + | | 2022-09-12 | [facility] | 9.0 | mg/dL | (missing) | | (unavailable | 09:29:07 [facility] | | | + + + +-------+---------+ + + + | Result panel 1177 | + + + + + +-------+ + + | | 2022-09-12 | [facility] | 7.1 | (missing) | (missing) | | (unavailable | 09:29:07 [facility] | | | + + + +-------+ + + + + | Result panel 1178 | + + + + + +-------+ + + | | 2022-09-12 | [facility] | 3.5 | (missing) | (missing) | | (unavailable | 09:29:07 [facility] | | | + + + +-------+ + + + + | Result panel 1179 | + + + + + +-------+ + + | | 2022-09-12 | [facility] | 3.6 | (missing) | (missing) | | (unavailable | 09:29:07 [facility] | | | + + + +-------+ + + + + | Result panel 1180 | + + + + + +--------+ + + | | 2022-09-12 | [facility] | 0.97 | (missing) | (missing) | | (unavailable | 09::07 [facility] | | | | + + + +--------+ + + + + | Result panel 1181 | + + + + + +-------+ + + | | 2022-09-12 | [facility] | 0.2 | (missing) | (missing) | | (unavailable | 09:29:07 [facility] | | | | + + + +-------+ + + + + | Result panel 1182 | + + + + + +------+ + + | | 2022-09-12 | [facility] | 28 | (missing) | (missing) | | (unavailable | 09:29:07 [facility] | | | | + + + +------+ + + + + | Result panel 1183 | + + + + + +------+ + + | | 2022-09-12 | [facility] | 51 | (missing) | (missing) | | (unavailable | 09:29:07 [facility] | | | | + + + +------+ + + + + | Result panel 1184 | + + + + + +-------+ + + | | 2022-09-12 | [facility] | 148 | (missing) | (missing) | | (unavailable | 09:29:07 [facility] | | | | + + + +-------+ + + + + | Result panel 1185 | + + + + + +--------+ + + | | 2022-09-12 | [facility] | 10.1 | (missing) | (missing) | | (unavailable | 09:29:07 [facility] | | | | + + + +--------+ + + + + | Result panel 1186 | + + + + + +--------+ + + | | 2022-09-12 | [facility] | 4.73 | (missing) | (missing) | | (unavailable | 09:29:07 [facility] | | | | + + + +--------+ + + + + | Result panel 1187 | + + + + + +--------+ + + | | 2022-09-12 | [facility] | 15.0 | (missing) | (missing) | | (unavailable | 09:29:07 [facility] | | | | + + + +--------+ + + + + | Result panel 1188 | + + + + + +--------+ + + | | 2022-09-12 | [facility] | 43.7 | (missing) | (missing) | | (unavailable | 09:29:07 [facility] | | | | + + + +--------+ + + + + | Result panel 1189 | + + + + + +--------+ + + | | 2022-09-12 | [facility] | 92.4 | (missing) | (missing) | | (unavailable | 09:29:07 [facility] | | | | + + + +--------+ + + + + | Result panel 1190 | + + + + + +--------+ + + | | 2022-09-12 | [facility] | 31.7 | (missing) | (missing) | | (unavailable | 09:29:07 [facility] | | | | + + + +--------+ + + + + | Result panel 1191 | + + + + + +--------+ + + | | 2022-09-12 | [facility] | 34.3 | (missing) | (missing) | | (unavailable | 09:29:07 [facility] | | | | + + + +--------+ + + + + | Result panel 1192 | + + + + + +--------+ + + | | 2022-09-12 | [facility] | 13.7 | (missing) | (missing) | | (unavailable | 09:29:07 [facility] | | | | + + + +--------+ + + + + | Result panel 1193 | + + + + + +-------+ + + | | 2022-09-12 | [facility] | 256 | (missing) | (missing) | | (unavailable | 09:29:07 [facility] | | | | + + + +-------+ + + + + | Result panel 1194 | + + + + + +--------+ + + | | 2022-09-12 | [facility] | 66.0 | (missing) | (missing) | | (unavailable | 09:29:07 [facility] | | | | + + + +--------+ + + + + | Result panel 1195 | + + + + + +--------+ + + | | 2022-09-12 | [facility] | 24.8 | (missing) | (missing) | | (unavailable | 09:29:07 [facility] | | | | + + + +--------+ + + + + | Result panel 1196 | + + + + + +-------+ + + | | 2022-09-12 | [facility] | 5.6 | (missing) | (missing) | | (unavailable | 09:29:07 [facility] | | | | + + + +-------+ + + + + | Result panel 1197 | + + + + + +-------+ + + | | 2022-09-12 | [facility] | 2.4 | (missing) | (missing) | | (unavailable | 09:29:07 [facility] | | | | + + + +-------+ + + + + | Result panel 1198 | + + + + + +-------+ + + | | 2022-09-12 | [facility] | 1.2 | (missing) | (missing) | | (unavailable | 09:29:07 [facility] | | | | + + + +-------+ + + + + | Result panel 1199 | + + + + + +-------+---------+ + | | 2022-09-12 | [facility] | 274 | mg/dL | (missing) | | (unavailable | 09:29:07 [facility] | | | + + + +-------+---------+ + + + | Result panel 1200 | + + + + + +------+---------+ + | | 2022-09-12 | [facility] | 16 | mg/dL | (missing) | | (unavailable | 09:29:07 [facility] | | | + + + +------+---------+ + + + | Result panel 1201 | + + + + + +--------+---------+ + | | 2022-09-12 | [facility] | 0.95 | mg/dL | (missing) | | (unavailable | 09:29:07 [facility] | | | + + + +--------+---------+ + + + | Result panel 1202 | + + + + + +------+ + + | | 2022-09-12 | [facility] | 72 | (missing) | (missing) | | (unavailable | 09:29:07 [facility] | | | + + + +------+ + + + + | Result panel 1203 | + + + + + +---------+ + + | | 2022-09-12 | [facility] | 16.84 | (missing) | (missing) | | (unavailable | 09:29:07 [facility] | | | + + + +---------+ + + + + | Result panel 1204 | + + + + + +-------+ + + | | 2022-09-12 | [facility] | 139 | (missing) | (missing) | | (unavailable | 09:29:07 [facility] | | | + + + +-------+ + + + + | Result panel 1205 | + + + + + +-------+ + + | | 2022-09-12 | [facility] | 4.6 | (missing) | (missing) | | (unavailable | 09:29:07 [facility] | | | + + + +-------+ + + + + | Result panel 1206 | + + + + + +-------+ + + | | 2022-09-12 | [facility] | 102 | (missing) | (missing) | | (unavailable | 09:29:07 [facility] | | | + + + +-------+ + + + + | Result panel 1207 | + + + + + +------+ + + | | 2022-09-12 | [facility] | 29 | (missing) | (missing) | | (unavailable | 09:29:07 [facility] | | | + + + +------+ + + + + | Result panel 1208 | + + + + + +--------+ + + | | 2022-09-12 | [facility] | 12.6 | (missing) | (missing) | | (unavailable | 09:29:07 [facility] | | | + + + +--------+ + + + + | Result panel 1209 | + + + + + +-------+---------+ + | | 2022-09-12 | [facility] | 9.0 | mg/dL | (missing) | | (unavailable | 09:29:07 [facility] | | | + + + +-------+---------+ + + + | Result panel 1210 | + + + + + +-------+ + + | | 2022-09-12 | [facility] | 7.1 | (missing) | (missing) | | (unavailable | 09:29:07 [facility] | | | + + + +-------+ + + + + | Result panel 1211 | + + + + + +-------+ + + | | 2022-09-12 | [facility] | 3.5 | (missing) | (missing) | | (unavailable | 09:29:07 [facility] | | | + + + +-------+ + + + + | Result panel 1212 | + + + + + +-------+ + + | | 2022-09-12 | [facility] | 3.6 | (missing) | (missing) | | (unavailable | 09:29:07 [facility] | | | + + + +-------+ + + + + | Result panel 1213 | + + + + + +--------+ + + | | 2022-09-12 | [facility] | 0.97 | (missing) | (missing) | | (unavailable | 09:29:07 [facility] | | | + + + +--------+ + + + + | Result panel 1214 | + + + + + +-------+ + + | | 2022-09-12 | [facility] | 0.2 | (missing) | (missing) | | (unavailable | 09:29:07 [facility] | | | + + + +-------+ + + + + | Result panel 1215 | + + + + + +------+ + + | | 2022-09-12 | [facility] | 28 | (missing) | (missing) | | (unavailable | 09:29:07 [facility] | | | + + + +------+ + + + + | Result panel 1216 | + + + + + +------+ + + | | 2022-09-12 | [facility] | 51 | (missing) | (missing) | | (unavailable | 09:29:07 [facility] | | | + + + +------+ + + + + | Result panel 1217 | + + + + + +-------+ + + | | 2022-09-12 | [facility] | 148 | (missing) | (missing) | | (unavailable | 09:29:07 [facility] | | | + + + +-------+ + + + + | Result panel 1218 | + + + + + +-------+ + + | | 2022-09-20 | [facility] | 257 | (missing) | (missing) | | (unavailable | 10:02:07 [facility] | | | + + + +-------+ + + + + | Result panel 1219 | + + + + + +-------+ + + | | 2022-09-20 | [facility] | 257 | (missing) | (missing) | | (unavailable | 10:02:07 [facility] | | | + + + +-------+ + + + + | Result panel 1220 | + + + + + + + + + | | 2022-11-09 | [facility] | YELLOW | (missing) | (missing) | | (unavailable | 14:50:07 [facility] | | | + + + + + + + + + | Result panel 1221 | + + + + + + + + + | | 2022-11-09 | [facility] | CLOUDY | (missing) | (missing) | | (unavailable | 14:50:07 [facility] | | | + + + + + + + + + | Result panel 1222 | + + + + + + + + + | | 2022-11-09 | [facility] | NEGATIVE | (missing) | (missing) | | (unavailable | 14:50:07 [facility] | | | + + + + + + + + + | Result panel 1223 | + + + + + + + + + | | 2022-11-09 | [facility] | NEGATIVE | (missing) | (missing) | | (unavailable | 14:50:07 [facility] | | | + + + + + + + + + | Result panel 1224 | + + + + + + + + + | | 2022-11-09 | [facility] | NEGATIVE | (missing) | (missing) | | (unavailable | 14:50:07 [facility] | | | + + + + + + + + + | Result panel 1225 | + + + + + +---------+ + + | | 2022-11-09 | [facility] | 1.020 | (missing) | (missing) | | (unavailable | 14:50:07 [facility] | | | + + + +---------+ + + + + | Result panel 1226 | + + + + + + + + + | | 2022-11-09 | [facility] | TRACE-I | (missing) | (missing) | | (unavailable | 14:50:07 [facility] | | | + + + + + + + + + | Result panel 1227 | + + + + + +-------+ + + | | 2022-11-09 | [facility] | 8.5 | (missing) | (missing) | | (unavailable | 14:50:07 [facility] | | | + + + +-------+ + + + + | Result panel 1228 | + + + + + +-------+ + + | | 2022-11-09 | [facility] | 100 | (missing) | (missing) | | (unavailable | 14:50:07 [facility] | | | | + + + +-------+ + + + + | Result panel 1229 | + + + + + + + + + | | 2022-11-09 | [facility] | NORMAL | (missing) | (missing) | | (unavailable | 14:50:07 [facility] | | | | + + + + + + + + + | Result panel 1230 | + + + + + + + + + | | 2022-11-09 | [facility] | POSITIVE | (missing) | (missing) | | (unavailable | 14:50:07 [facility] | | | + + + + + + + + + | Result panel 1231 | + + + + + +---------+ + + | | 2022-11-09 | [facility] | TRACE | (missing) | (missing) | | (unavailable | 14:50:07 [facility] | | | + + + +---------+ + + + + | Result panel 1232 | + + + + + +-------+ + + | | 2022-11-09 | [facility] | 0-1 | (missing) | (missing) | | (unavailable | 14:50:07 [facility] | | | + + + +-------+ + + + + | Result panel 1233 | + + + + + +--------+ + + | | 2022-11-09 | [facility] | 7-11 | (missing) | (missing) | | (unavailable | 14:50:07 [facility] | | | + + + +--------+ + + + + | Result panel 1234 | + + + + + +-----+ + + | | 2022-11-09 | [facility] | 0 | (missing) | (missing) | | (unavailable | 14:50:07 [facility] | | | + + + +-----+ + + + + | Result panel 1235 | + + + + + + + + + | | 2022-11-09 | [facility] | AMORPHOUS | (missing) | (missing) | | (unavailable | 14:50:07 | [facility] | | | | + + + + + + + + + | Result panel 1236 | + + + + + +------+ + + | | 2022-11-09 | [facility] | 3+ | (missing) | (missing) | | (unavailable | 14:50:07 [facility] | | | + + + +------+ + + + + | Result panel 1237 | + + + + + + + + + | | 2022-11-09 | [facility] | NONE SEEN | (missing) | (missing) | | (unavailable | 14:50:07 [facility] | | | + + + + + + + + + | Result panel 1238 | + + + + + +-------+ + + | | 2022-11-09 | [facility] | Yes | (missing) | (missing) | | (unavailable | 14:50:07 [facility] | | | + + + +-------+ + + + + | Result panel 1239 | + + + + + + + + + | | 2022-11-09 | [facility] | CLEAN CATCH | (missing) | (missing) | | (unavailable | 14:50:07 | [facility] | | | + + + + + + + + + | Result panel 1240 | + + + + + + + + + | | 2022-11-09 | [facility] | PROTEUS | (missing) | (missing) | | (unavailable | 14:50:07 | [facility] | | | | + + + + + + + + + | Result panel 1241 | + + + + + +--------+ + + | | 2022-11-13 | [facility] | 13.7 | (missing) | (missing) | | (unavailable | 14:00:07 [facility] | | | + + + +--------+ + + + + | Result panel 1242 | + + + + + +--------+ + + | | 2022-11-13 | [facility] | 5.35 | (missing) | (missing) | | (unavailable | 14:00:07 [facility] | | | + + + +--------+ + + + + | Result panel 1243 | + + + + + +--------+ + + | | 2022-11-13 | [facility] | 16.5 | (missing) | (missing) | | (unavailable | 14:00:07 [facility] | | | + + + +--------+ + + + + | Result panel 1244 | + + + + + +--------+ + + | | 2022-11-13 | [facility] | 48.5 | (missing) | (missing) | | (unavailable | 14:00:07 [facility] | | | + + + +--------+ + + + + | Result panel 1245 | + + + + + +--------+ + + | | 2022-11-13 | [facility] | 90.6 | (missing) | (missing) | | (unavailable | 14:00:07 [facility] | | | + + + +--------+ + + + + | Result panel 1246 | + + + + + +--------+ + + | | 2022-11-13 | [facility] | 30.8 | (missing) | (missing) | | (unavailable | 14:: | [facility] | | | + + + +--------+ + + + + | Result panel 1247 | + + + + + +--------+ + + | | 2022-11-13 | [facility] | 34.0 | (missing) | (missing) | | (unavailable | 14:: | [facility] | | | + + + +--------+ + + + + | Result panel 1248 | + + + + + +--------+ + + | | 2022-11-13 | [facility] | 13.9 | (missing) | (missing) | | (unavailable | 14:00:07 [facility] | | | + + + +--------+ + + + + | Result panel 1249 | + + + + + +-------+ + + | | 2022-11-13 | [facility] | 346 | (missing) | (missing) | | (unavailable | 14:00:07 [facility] | | | + + + +-------+ + + + + | Result panel 1250 | + + + + + +--------+ + + | | 2022-11-13 | [facility] | 66.9 | (missing) | (missing) | | (unavailable | 14::07 | [facility] | | | + + + +--------+ + + + + | Result panel 1251 | + + + + + +--------+ + + | | 2022-11-13 | [facility] | 25.2 | (missing) | (missing) | | (unavailable | 14::07 | [facility] | | | + + + +--------+ + + + + | Result panel 1252 | + + + + + +-------+ + + | | 2022-11-13 | [facility] | 4.6 | (missing) | (missing) | | (unavailable | 14::07 | [facility] | | | | + + + +-------+ + + + + | Result panel 1253 | + + + + + +-------+ + + | | 2022-11-13 | [facility] | 2.1 | (missing) | (missing) | | (unavailable | 14::07 | [facility] | | | | + + + +-------+ + + + + | Result panel 1254 | + + + + + +-------+ + + | | 2022-11-13 | [facility] | 1.2 | (missing) | (missing) | | (unavailable | 14:00:07 [facility] | | | + + + +-------+ + + + + | Result panel 1255 | + + + + + +-------+---------+ + | | 2022-11-13 | [facility] | 164 | mg/dL | (missing) | | (unavailable | 14:00:07 | [facility] | | | | + + + +-------+---------+ + + + | Result panel 1256 | + + + + + +------+---------+ + | | 2022-11-13 | [facility] | 14 | mg/dL | (missing) | | (unavailable | 14:00:07 [facility] | | | | + + + +------+---------+ + + + | Result panel 1257 | + + + + + +--------+---------+ + | | 2022-11-13 | [facility] | 1.37 | mg/dL | (missing) | | (unavailable | 14:00:07 [facility] | | | | + + + +--------+---------+ + + + | Result panel 1258 | + + + + + +------+ + + | | 2022-11-13 | [facility] | 46 | (missing) | (missing) | | (unavailable | 14:00:07 | [facility] | | | | + + + +------+ + + + + | Result panel 1259 | + + + + + +---------+ + + | | 2022-11-13 | [facility] | 10.21 | (missing) | (missing) | | (unavailable | 14:00:07 | [facility] | | | | + + + +---------+ + + + + | Result panel 1260 | + + + + + +-------+ + + | | 2022-11-13 | [facility] | 138 | (missing) | (missing) | | (unavailable | 14:00:07 | [facility] | | | | + + + +-------+ + + + + | Result panel 1261 | + + + + + +-------+ + + | | 2022-11-13 | [facility] | 4.2 | (missing) | (missing) | | (unavailable | 14:00:07 [facility] | | | | + + + +-------+ + + + + | Result panel 1262 | + + + + + +------+ + + | | 2022-11-13 | [facility] | 99 | (missing) | (missing) | | (unavailable | 14:00:07 [facility] | | | | + + + +------+ + + + + | Result panel 1263 | + + + + + +------+ + + | | 2022-11-13 | [facility] | 27 | (missing) | (missing) | | (unavailable | 14:00:07 [facility] | | | | + + + +------+ + + + + | Result panel 1264 | + + + + + +--------+ + + | | 2022-11-13 | [facility] | 16.2 | (missing) | (missing) | | (unavailable | 14:00:07 [facility] | | | | + + + +--------+ + + + + | Result panel 1265 | + + + + + +--------+---------+ + | | 2022-11-13 | [facility] | 10.0 | mg/dL | (missing) | | (unavailable | 14:00:07 [facility] | | | + + + +--------+---------+ + + + | Result panel 1266 | + + + + + +-------+ + + | | 2022-11-13 | [facility] | 7.8 | (missing) | (missing) | | (unavailable | 14:00:07 [facility] | | | | + + + +-------+ + + + + | Result panel 1267 | + + + + + +-------+ + + | | 2022-11-13 | [facility] | 3.8 | (missing) | (missing) | | (unavailable | 14:00:07 [facility] | | | | + + + +-------+ + + + + | Result panel 1268 | + + + + + +-------+ + + | | 2022-11-13 | [facility] | 4.0 | (missing) | (missing) | | (unavailable | 14:00:07 [facility] | | | + + + +-------+ + + + + | Result panel 1269 | + + + + + +--------+ + + | | 2022-11-13 | [facility] | 0.95 | (missing) | (missing) | | (unavailable | 14:00:07 [facility] | | | + + + +--------+ + + + + | Result panel 1270 | + + + + + +-------+ + + | | 2022-11-13 | [facility] | 0.4 | (missing) | (missing) | | (unavailable | 14:00:07 [facility] | | | | + + + +-------+ + + + + | Result panel 1271 | + + + + + +------+ + + | | 2022-11-13 | [facility] | 34 | (missing) | (missing) | | (unavailable | 14:00:07 [facility] | | | | + + + +------+ + + + + | Result panel 1272 | + + + + + +------+ + + | | 2022-11-13 | [facility] | 68 | (missing) | (missing) | | (unavailable | 14:00:07 [facility] | | | | + + + +------+ + + + + | Result panel 1273 | + + + + + +-------+ + + | | 2022-11-13 | [facility] | 140 | (missing) | (missing) | | (unavailable | 14:00:07 [facility] | | | | + + + +-------+ + + + + | Result panel 1274 | + + + + + + + + + | | 2022-11-13 | [facility] | YELLOW | (missing) | (missing) | | (unavailable | 16:30:07 [facility] | | | | + + + + + + + + + | Result panel 1275 | + + + + + + + + + | | 2022-11-13 | [facility] | CLOUDY | (missing) | (missing) | | (unavailable | 16:30:07 [facility] | | | | + + + + + + + + + | Result panel 1276 | + + + + + + + + + | | 2022-11-13 | [facility] | NEGATIVE | (missing) | (missing) | | (unavailable | 16:30:07 [facility] | | | | + + + + + + + + + | Result panel 1277 | + + + + + + + + + | | 2022-11-13 | [facility] | NEGATIVE | (missing) | (missing) | | (unavailable | 16:30:07 | [facility] | | | | + + + + + + + + + | Result panel 1278 | + + + + + + + + + | | 2022-11-13 | [facility] | NEGATIVE | (missing) | (missing) | | (unavailable | 16:30:07 | [facility] | | | | + + + + + + + + + | Result panel 1279 | + + + + + +---------+ + + | | 2022-11-13 | [facility] | 1.015 | (missing) | (missing) | | (unavailable | 16:30:07 | [facility] | | | | + + + +---------+ + + + + | Result panel 1280 | + + + + + + + + + | | 2022-11-13 | [facility] | NEGATIVE | (missing) | (missing) | | (unavailable | 16:30:07 | [facility] | | | | + + + + + + + + + | Result panel 1281 | + + + + + +-------+ + + | | 2022-11-13 | [facility] | 7.5 | (missing) | (missing) | | (unavailable | 16:30:07 | [facility] | | | | + + + +-------+ + + + + | Result panel 1282 | + + + + + +---------+ + + | | 2022-11-13 | [facility] | >=300 | (missing) | (missing) | | (unavailable | 16:30:07 | [facility] | | | | + + + +---------+ + + + + | Result panel 1283 | + + + + + + + + + | | 2022-11-13 | [facility] | NORMAL | (missing) | (missing) | | (unavailable | 16:30:07 | [facility] | | | | + + + + + + + + + | Result panel 1284 | + + + + + + + + + | | 2022-11-13 | [facility] | POSITIVE | (missing) | (missing) | | (unavailable | 16:30:07 | [facility] | | | | + + + + + + + + + | Result panel 1285 | + + + + + +---------+ + + | | 2022-11-13 | [facility] | SMALL | (missing) | (missing) | | (unavailable | 16:30:07 | [facility] | | | | + + + +---------+ + + + + | Result panel 1286 | + + + + + +-------+ + + | | 2022-11-13 | [facility] | 0-1 | (missing) | (missing) | | (unavailable | 16:30:07 [facility] | | | | + + + +-------+ + + + + | Result panel 1287 | + + + + + +--------+ + + | | 2022-11-13 | [facility] | 7-11 | (missing) | (missing) | | (unavailable | 16:30:07 [facility] | | | | + + + +--------+ + + + + | Result panel 1288 | + + + + + +-----+ + + | | 2022-11-13 | [facility] | 0 | (missing) | (missing) | | (unavailable | 16:30:07 [facility] | | | | + + + +-----+ + + + + | Result panel 1289 | + + + + + + + + + | | 2022-11-13 | [facility] | AMORPHOUS | (missing) | (missing) | | (unavailable | 16:30:07 | [facility] | | | | + + + + + + + + + | Result panel 1290 | + + + + + + + + + | | 2022-11-13 | [facility] | TRIPLE | (missing) | (missing) | | (unavailable | 16:30:07 | [facility] | | | | + + + + + + + + + | Result panel 1291 | + + + + + +------+ + + | | 2022-11-13 | [facility] | 4+ | (missing) | (missing) | | (unavailable | 16:30:07 | [facility] | | | | + + + +------+ + + + + | Result panel 1292 | + + + + + + + + + | | 2022-11-13 | [facility] | NONE SEEN | (missing) | (missing) | | (unavailable | 16:30:07 | [facility] | | | | + + + + + + + + + | Result panel 1293 | + + + + + +-------+ + + | | 2022-11-13 | [facility] | Yes | (missing) | (missing) | | (unavailable | 16:30:07 | [facility] | | | | + + + +-------+ + + + + | Result panel 1294 | + + + + + + + + + | | 2022-11-13 | [facility] | CLEAN CATCH | (missing) | (missing) | | (unavailable | 16:30:07 [facility] | | | | + + + + + + + + + | Result panel 1295 | + + + + + + + + + | | 2022-11-13 | [facility] | ESCHERICHIA | (missing) | (missing) | | (unavailable | 16:30:07 | [facility] | [facility] | | | | + + + + + + + + + | Result panel 1296 | + + + + + + + + + | | 2022-11-13 | [facility] | CLEAN CATCH | (missing) | (missing) | | (unavailable | 16:30:07 | [facility] | | | | + + + + + + + + + | Result panel 1297 | + + + + + + + + + | | 2022-11-13 | [facility] | ESCHERICHIA | (missing) | (missing) | | (unavailable | 16:30:07 | [facility] | | | | + + + + + + + + + | Result panel 1298 | + + + + + + + + + | | 2022-11-13 | [facility] | YELLOW | (missing) | (missing) | | (unavailable | 16:30:07 | [facility] | | | | + + + + + + + + + | Result panel 1299 | + + + + + + + + + | | 2022-11-13 | [facility] | CLOUDY | (missing) | (missing) | | (unavailable | 16:30:07 | [facility] | | | | + + + + + + + + + | Result panel 1300 | + + + + + + + + + | | 2022-11-13 | [facility] | NEGATIVE | (missing) | (missing) | | (unavailable | 16:30:07 | [facility] | | | | + + + + + + + + + | Result panel 1301 | + + + + + + + + + | | 2022-11-13 | [facility] | NEGATIVE | (missing) | (missing) | | (unavailable | 16:30:07 | [facility] | | | | + + + + + + + + + | Result panel 1302 | + + + + + + + + + | | 2022-11-13 | [facility] | NEGATIVE | (missing) | (missing) | | (unavailable | 16:30:07 | [facility] | | | | + + + + + + + + + | Result panel 1303 | + + + + + +---------+ + + | | 2022-11-13 | [facility] | 1.015 | (missing) | (missing) | | (unavailable | 16:30:07 | [facility] | | | | + + + +---------+ + + + + | Result panel 1304 | + + + + + + + + + | | 2022-11-13 | [facility] | NEGATIVE | (missing) | (missing) | | (unavailable | [facility]30:07 [facility] | | | | + + + + + + + + + | Result panel 1305 | + + + + + +-------+ + + | | 2022-11-13 | [facility] | 7.5 | (missing) | (missing) | | (unavailable | [facility]30:07 [facility] | | | | + + + +-------+ + + + + | Result panel 1306 | + + + + + +---------+ + + | | 2022-11-13 | [facility] | >=300 | (missing) | (missing) | | (unavailable | [facility]30:07 [facility] | | | | + + + +---------+ + + + + | Result panel 1307 | + + + + + + + + + | | 2022-11-13 | [facility] | NORMAL | (missing) | (missing) | | (unavailable | [facility]30:07 [facility] | | | | + + + + + + + + + | Result panel 1308 | + + + + + + + + + | | 2022-11-13 | [facility] | POSITIVE | (missing) | (missing) | | (unavailable | [facility]30:07 [facility] | | | | + + + + + + + + + | Result panel 1309 | + + + + + +---------+ + + | | 2022-11-13 | [facility] | SMALL | (missing) | (missing) | | (unavailable | [facility]30:07 [facility] | | | | + + + +---------+ + + + + | Result panel 1310 | + + + + + +-------+ + + | | 2022-11-13 | [facility] | 0-1 | (missing) | (missing) | | (unavailable | [facility]30:07 [facility] | | | | + + + +-------+ + + + + | Result panel 1311 | + + + + + +--------+ + + | | 2022-11-13 | [facility] | 7-11 | (missing) | (missing) | | (unavailable | [facility]30:07 [facility] | | | | + + + +--------+ + + + + | Result panel 1312 | + + + + + +-----+ + + | | 2022-11-13 | [facility] | 0 | (missing) | (missing) | | (unavailable | [facility]30:07 [facility] | | | | + + + +-----+ + + + + | Result panel 1313 | + + + + + + + + + | | 2022-11-13 | [facility] | AMORPHOUS | (missing) | (missing) | | (unavailable | 16:30:07 [facility] | | | | + + + + + + + + + | Result panel 1314 | + + + + + + + + + | | 2022-11-13 | [facility] | TRIPLE | (missing) | (missing) | | (unavailable | [facility]:30:07 [facility] | | | | + + + + + + + + + | Result panel 1315 | + + + + + +------+ + + | | 2022-11-13 | [facility] | 4+ | (missing) | (missing) | | (unavailable | [facility]:30:07 [facility] | | | | + + + +------+ + + + + | Result panel 1316 | + + + + + + + + + | | 2022-11-13 | [facility] | NONE SEEN | (missing) | (missing) | | (unavailable | [facility]30:07 [facility] | | | | + + + + + + + + + | Result panel 1317 | + + + + + +-------+ + + | | 2022-11-13 | [facility] | Yes | (missing) | (missing) | | (unavailable | [facility]30:07 [facility] | | | | + + + +-------+ + + + + | Result panel 1318 | + + + + + + + + + | | 2022-11-13 | [facility] | CLEAN CATCH | (missing) | (missing) | | (unavailable | [facility]:30:07 [facility] | | | | + + + + + + + + + | Result panel 1319 | + + + + + +-------+---------+ + | | 2022-11-22 | [facility] | 165 | mg/dL | (missing) | | (unavailable | 12:12:07 [facility] | | | | + + + +-------+---------+ + + + | Result panel 1320 | + + + + + +------+---------+ + | | 2022-11-22 | [facility] | 14 | mg/dL | (missing) | | (unavailable | 12:12:07 [facility] | | | | + + + +------+---------+ + + + | Result panel 1321 | + + + + + +--------+---------+ + | | 2022-11-22 | [facility] | 1.01 | mg/dL | (missing) | | (unavailable | 12:12:07 | [facility] | | | | + + + +--------+---------+ + + + | Result panel 1322 | + + + + + +------+ + + | | 2022-11-22 | [facility] | 67 | (missing) | (missing) | | (unavailable | 12:12:07 [facility] | | | + + + +------+ + + + + | Result panel 1323 | + + + + + +---------+ + + | | 2022-11-22 | [facility] | 13.86 | (missing) | (missing) | | (unavailable | 12:12:07 [facility] | | | + + + +---------+ + + + + | Result panel 1324 | + + + + + +-------+ + + | | 2022-11-22 | [facility] | 138 | (missing) | (missing) | | (unavailable | 12:12:07 [facility] | | | + + + +-------+ + + + + | Result panel 1325 | + + + + + +-------+ + + | | 2022-11-22 | [facility] | 4.3 | (missing) | (missing) | | (unavailable | 12:12:07 [facility] | | | + + + +-------+ + + + + | Result panel 1326 | + + + + + +-------+ + + | | 2022-11-22 | [facility] | 102 | (missing) | (missing) | | (unavailable | 12:12:07 [facility] | | | + + + +-------+ + + + + | Result panel 1327 | + + + + + +------+ + + | | 2022-11-22 | [facility] | 26 | (missing) | (missing) | | (unavailable | 12:12:07 [facility] | | + + + +------+ + + + + | Result panel 1328 | + + + + + +--------+ + + | | 2022-11-22 | [facility] | 14.3 | (missing) | (missing) | | (unavailable | 12:12:07 [facility] | | | + + + +--------+ + + + + | Result panel 1329 | + + + + + +--------+---------+ + | | 2022-11-22 | [facility] | 10.3 | mg/dL | (missing) | | (unavailable | 12:12:07 [facility] | | | + + + +--------+---------+ + + + | Result panel 1330 | + + + + + +-------+ + + | | 2022-11-22 | [facility] | 7.4 | (missing) | (missing) | | (unavailable | 12:12: | [facility] | | | + + + +-------+ + + + + | Result panel 1331 | + + + + + +-------+ + + | | 2022-11-22 | [facility] | 3.7 | (missing) | (missing) | | (unavailable | 12:07 [facility] | | | + + + +-------+ + + + + | Result panel 1332 | + + + + + +-------+ + + | | 2022-11-22 | [facility] | 3.7 | (missing) | (missing) | | (unavailable | 12[facility]12:07 [facility] | | + + + +-------+ + + + + | Result panel 1333 | + + + + + +--------+ + + | | 2022-11-22 | [facility] | 1.00 | (missing) | (missing) | | (unavailable | 12:12:07 [facility] | | + + + +--------+ + + + + | Result panel 1334 | + + + + + +-------+ + + | | 2022-11-22 | [facility] | 0.4 | (missing) | (missing) | | (unavailable | 12:12:07 [facility] | | + + + +-------+ + + + + | Result panel 1335 | + + + + + +------+ + + | | 2022-11-22 | [facility] | 24 | (missing) | (missing) | | (unavailable | 12:12:07 [facility] | | | + + + +------+ + + + + | Result panel 1336 | + + + + + +------+ + + | | 2022-11-22 | [facility] | 37 | (missing) | (missing) | | (unavailable | 12::07 | [facility] | | | + + + +------+ + + + + | Result panel 1337 | + + + + + +-------+ + + | | 2022-11-22 | [facility] | 119 | (missing) | (missing) | | (unavailable | 12:12:07 [facility] | | | + + + +-------+ + + + + | Result panel 1338 | + + + + + +--------+ + + | | 2022-11-22 | [facility] | 12.5 | (missing) | (missing) | | (unavailable | 12:39:07 [facility] | | + + + +--------+ + + + + | Result panel 1339 | + + + + + +--------+ + + | | 2022-11-22 | [facility] | 5.07 | (missing) | (missing) | | (unavailable | 12:39:07 [facility] | | + + + +--------+ + + + + | Result panel 1340 | + + + + + +--------+ + + | | 2022-11-22 | [facility] | 15.4 | (missing) | (missing) | | (unavailable | 12:39:07 [facility] | | + + + +--------+ + + + + | Result panel 1341 | + + + + + +--------+ + + | | 2022-11-22 | [facility] | 46.1 | (missing) | (missing) | | (unavailable | 12:39:07 [facility] | | + + + +--------+ + + + + | Result panel 1342 | + + + + + +--------+ + + | | 2022-11-22 | [facility] | 90.8 | (missing) | (missing) | | (unavailable | 12:39:07 [facility] | | + + + +--------+ + + + + | Result panel 1343 | + + + + + +--------+ + + | | 2022-11-22 | [facility] | 30.4 | (missing) | (missing) | | (unavailable | 12:39:07 [facility] | | + + + +--------+ + + + + | Result panel 1344 | + + + + + +--------+ + + | | 2022-11-22 | [facility] | 33.5 | (missing) | (missing) | | (unavailable | 12:39:07 [facility] | | + + + +--------+ + + + + | Result panel 1345 | + + + + + +--------+ + + | | 2022-11-22 | [facility] | 14.1 | (missing) | (missing) | | (unavailable | 12:39:07 [facility] | | | + + + +--------+ + + + + | Result panel 1346 | + + + + + +-------+ + + | | 2022-11-22 | [facility] | 304 | (missing) | (missing) | | (unavailable | 12:39:07 [facility] | | + + + +-------+ + + + + | Result panel 1347 | + + + + + +--------+ + + | | 2022-11-22 | [facility] | 68.0 | (missing) | (missing) | | (unavailable | 12:39:07 [facility] | | + + + +--------+ + + + + | Result panel 1348 | + + + + + +--------+ + + | | 2022-11-22 | [facility] | 24.5 | (missing) | (missing) | | (unavailable | 12:39:07 [facility] | | + + + +--------+ + + + + | Result panel 1349 | + + + + + +-------+ + + | | 2022-11-22 | [facility] | 5.5 | (missing) | (missing) | | (unavailable | 12:39:07 [facility] | | | + + + +-------+ + + + + | Result panel 1350 | + + + + + +-------+ + + | | 2022-11-22 | [facility] | 1.2 | (missing) | (missing) | | (unavailable | 12:39:07 [facility] | | | + + + +-------+ + + + + | Result panel 1351 | + + + + + +-------+ + + | | 2022-11-22 | [facility] | 0.8 | (missing) | (missing) | | (unavailable | 12:39:07 [facility] | | | + + + +-------+ + + + + | Result panel 1352 | + + + + + +--------+ + + | | 2022-11-23 | [facility] | 15.8 | (missing) | (missing) | | (unavailable | 19:34:07 [facility] | | | + + + +--------+ + + + + | Result panel 1353 | + + + + + +--------+ + + | | 2022-11-23 | [facility] | 5.01 | (missing) | (missing) | | (unavailable | 19:34:07 [facility] | | | + + + +--------+ + + + + | Result panel 1354 | + + + + + +--------+ + + | | 2022-11-23 | [facility] | 15.3 | (missing) | (missing) | | (unavailable | 19:34:07 [facility] | | + + + +--------+ + + + + | Result panel 1355 | + + + + + +--------+ + + | | 2022-11-23 | [facility] | 46.1 | (missing) | (missing) | | (unavailable | 19:34:07 [facility] | | | + + + +--------+ + + + + | Result panel 1356 | + + + + + +--------+ + + | | 2022-11-23 | [facility] | 92.0 | (missing) | (missing) | | (unavailable | 19:34:07 [facility] | | + + + +--------+ + + + + | Result panel 1357 | + + + + + +--------+ + + | | 2022-11-23 | [facility] | 30.6 | (missing) | (missing) | | (unavailable | 19:34:07 [facility] | | + + + +--------+ + + + + | Result panel 1358 | + + + + + +--------+ + + | | 2022-11-23 | [facility] | 33.3 | (missing) | (missing) | | (unavailable | 19:34:07 [facility] | | + + + +--------+ + + + + | Result panel 1359 | + + + + + +--------+ + + | | 2022-11-23 | [facility] | 14.2 | (missing) | (missing) | | (unavailable | 19:34:07 [facility] | | + + + +--------+ + + + + | Result panel 1360 | + + + + + +-------+ + + | | 2022-11-23 | [facility] | 359 | (missing) | (missing) | | (unavailable | 19:34:07 [facility] | | + + + +-------+ + + + + | Result panel 1361 | + + + + + +--------+ + + | | 2022-11-23 | [facility] | 71.5 | (missing) | (missing) | | (unavailable | 19:34:07 [facility] | | + + + +--------+ + + + + | Result panel 1362 | + + + + + +--------+ + + | | 2022-11-23 | [facility] | 21.6 | (missing) | (missing) | | (unavailable | 19:34:07 [facility] | | + + + +--------+ + + + + | Result panel 1363 | + + + + + +-------+ + + | | 2022-11-23 | [facility] | 4.6 | (missing) | (missing) | | (unavailable | 19:34:07 [facility] | | + + + +-------+ + + + + | Result panel 1364 | + + + + + +-------+ + + | | 2022-11-23 | [facility] | 2.0 | (missing) | (missing) | | (unavailable | 19:34:07 [facility] | | + + + +-------+ + + + + | Result panel 1365 | + + + + + +-------+ + + | | 2022-11-23 | [facility] | 0.3 | (missing) | (missing) | | (unavailable | 19:34:07 [facility] | | + + + +-------+ + + + + | Result panel 1366 | + + + + + +-------+---------+ + | | 2022-11-23 | [facility] | 135 | mg/dL | (missing) | | (unavailable | 19:34:07 [facility] | | | + + + +-------+---------+ + + + | Result panel 1367 | + + + + + +------+---------+ + | | 2022-11-23 | [facility] | 18 | mg/dL | (missing) | | (unavailable | :34:07 [facility] | | | + + + +------+---------+ + + + | Result panel 1368 | + + + + + +--------+---------+ + | | 2022-11-23 | [facility] | 1.20 | mg/dL | (missing) | | (unavailable | 19[facility]34:07 [facility] | | + + + +--------+---------+ + + + | Result panel 1369 | + + + + + +------+ + + | | 2022-11-23 | [facility] | 54 | (missing) | (missing) | | (unavailable | 19:34:07 [facility] | | + + + +------+ + + + + | Result panel 1370 | + + + + + +---------+ + + | | 2022-11-23 | [facility] | 15.00 | (missing) | (missing) | | (unavailable | 19:34:07 [facility] | | + + + +---------+ + + + + | Result panel 1371 | + + + + + +-------+ + + | | 2022-11-23 | [facility] | 135 | (missing) | (missing) | | (unavailable | 19:34:07 [facility] | | | + + + +-------+ + + + + | Result panel 1372 | + + + + + +-------+ + + | | 2022-11-23 | [facility] | 4.0 | (missing) | (missing) | | (unavailable | [facility]:34:07 [facility] | | + + + +-------+ + + + + | Result panel 1373 | + + + + + +-------+ + + | | 2022-11-23 | [facility] | 101 | (missing) | (missing) | | (unavailable | 19:34:07 [facility] | | + + + +-------+ + + + + | Result panel 1374 | + + + + + +------+ + + | | 2022-11-23 | [facility] | 23 | (missing) | (missing) | | (unavailable | 19[facility]34:07 [facility] | | + + + +------+ + + + + | Result panel 1375 | + + + + + +--------+ + + | | 2022-11-23 | [facility] | 15.0 | (missing) | (missing) | | (unavailable | [facility]:34:07 [facility] | | + + + +--------+ + + + + | Result panel 1376 | + + + + + +-------+---------+ + | | 2022-11-23 | [facility] | 9.6 | mg/dL | (missing) | | (unavailable | 19[facility]34:07 [facility] | | + + + +-------+---------+ + + + | Result panel 1377 | + + + + + +-------+ + + | | 2022-11-23 | [facility] | 7.8 | (missing) | (missing) | | (unavailable | [facility]:34:07 [facility] | | + + + +-------+ + + + + | Result panel 1378 | + + + + + +-------+ + + | | 2022-11-23 | [facility] | 3.8 | (missing) | (missing) | | (unavailable | [facility]:34:07 [facility] | | | + + + +-------+ + + + + | Result panel 1379 | + + + + + +-------+ + + | | 2022-11-23 | [facility] | 4.0 | (missing) | (missing) | | (unavailable | 19:34:07 [facility] | | + + + +-------+ + + + + | Result panel 1380 | + + + + + +--------+ + + | | 2022-11-23 | [facility] | 0.95 | (missing) | (missing) | | (unavailable | 19:34:07 [facility] | | + + + +--------+ + + + + | Result panel 1381 | + + + + + +-------+ + + | | 2022-11-23 | [facility] | 0.4 | (missing) | (missing) | | (unavailable | 19:34:07 [facility] | | | + + + +-------+ + + + + | Result panel 1382 | + + + + + +------+ + + | | 2022-11-23 | [facility] | 43 | (missing) | (missing) | | (unavailable | 19:34:07 [facility] | | | + + + +------+ + + + + | Result panel 1383 | + + + + + +------+ + + | | 2022-11-23 | [facility] | 48 | (missing) | (missing) | | (unavailable | 19:34:07 [facility] | | | + + + +------+ + + + + | Result panel 1384 | + + + + + +-------+ + + | | 2022-11-23 | [facility] | 117 | (missing) | (missing) | | (unavailable | 19:34:07 [facility] | | | + + + +-------+ + + + + | Result panel 1385 | + + + + + +-------+ + + | | 2022-11-23 | [facility] | 4.5 | (missing) | (missing) | | (unavailable | 19:34:07 [facility] | | | + + + +-------+ + + + + | Result panel 1386 | + + + + + + + + + | | 2022-11-23 | [facility] | YELLOW | (missing) | (missing) | | (unavailable | 21:48:07 [facility] | | | + + + + + + + + + | Result panel 1387 | + + + + + +---------+ + + | | 2022-11-23 | [facility] | CLEAR | (missing) | (missing) | | (unavailable | 21:48:07 [facility] | | | + + + +---------+ + + + + | Result panel 1388 | + + + + + + + + + | | 2022-11-23 | [facility] | NEGATIVE | (missing) | (missing) | | (unavailable | 21:48:07 [facility] | | | + + + + + + + + + | Result panel 1389 | + + + + + + + + + | | 2022-11-23 | [facility] | NEGATIVE | (missing) | (missing) | | (unavailable | 21:48:07 [facility] | | | + + + + + + + + + | Result panel 1390 | + + + + + + + + + | | 2022-11-23 | [facility] | NEGATIVE | (missing) | (missing) | | (unavailable | 21:48:07 [facility] | | | + + + + + + + + + | Result panel 1391 | + + + + + +---------+ + + | | 2022-11-23 | [facility] | 1.025 | (missing) | (missing) | | (unavailable | 21:48:07 [facility] | | | + + + +---------+ + + + + | Result panel 1392 | + + + + + + + + + | | 2022-11-23 | [facility] | NEGATIVE | (missing) | (missing) | | (unavailable | [facility]:48:07 [facility] | | | + + + + + + + + + | Result panel 1393 | + + + + + +-------+ + + | | 2022-11-23 | [facility] | 6.5 | (missing) | (missing) | | (unavailable | 21:48:07 [facility] | | | + + + +-------+ + + + + | Result panel 1394 | + + + + + +-------+ + + | | 2022-11-23 | [facility] | 100 | (missing) | (missing) | | (unavailable | 21:48:07 [facility] | | | + + + +-------+ + + + + | Result panel 1395 | + + + + + +-------+ + + | | 2022-11-23 | [facility] | 1.0 | (missing) | (missing) | | (unavailable | 21:48:07 [facility] | | | + + + +-------+ + + + + | Result panel 1396 | + + + + + + + + + | | 2022-11-23 | [facility] | NEGATIVE | (missing) | (missing) | | (unavailable | 21:48:07 [facility] | | | + + + + + + + + + | Result panel 1397 | + + + + + + + + + | | 2022-11-23 | [facility] | NEGATIVE | (missing) | (missing) | | (unavailable | 21:48:07 [facility] | | | + + + + + + + + + | Result panel 1398 | + + + + + +-------+ + + | | 2022-11-23 | [facility] | 0-1 | (missing) | (missing) | | (unavailable | [facility]:48:07 [facility] | | | + + + +-------+ + + + + | Result panel 1399 | + + + + + +---------+ + + | | 2022-11-23 | [facility] | 21-40 | (missing) | (missing) | | (unavailable | 21:48:07 [facility] | | | + + + +---------+ + + + + | Result panel 1400 | + + + + + + + + + | | 2022-11-23 | [facility] | SQUAMOUS 1+ | (missing) | (missing) | | (unavailable | 21:48:07 [facility] | | | + + + + + + + + + | Result panel 1401 | + + + + + + + + + | | 2022-11-23 | [facility] | NONE SEEN | (missing) | (missing) | | (unavailable | 21:48:07 [facility] | | | + + + + + + + + + | Result panel 1402 | + + + + + +--------+ + + | | 2022-11-23 | [facility] | RARE | (missing) | (missing) | | (unavailable | 21:48:07 [facility] | | | + + + +--------+ + + + + | Result panel 1403 | + + + + + + + + + | | 2022-11-23 | [facility] | NONE SEEN | (missing) | (missing) | | (unavailable | 21:48:07 [facility] | | | + + + + + + + + + | Result panel 1404 | + + + + + +-------+ + + | | 2022-11-23 | [facility] | Yes | (missing) | (missing) | | (unavailable | 21:48:07 [facility] | | | + + + +-------+ + + + + | Result panel 1405 | + + + + + +--------+ + + | | 2023-01-04 | [facility] | 25.7 | (missing) | (missing) | | (unavailable | 18:18:07 [facility] | | | + + + +--------+ + + + + | Result panel 1406 | + + + + + +-------+ + + | | 2023-01-04 | [facility] | 5.0 | (missing) | (missing) | | (unavailable | 18:18:07 [facility] | | | + + + +-------+ + + + + | Result panel 1407 | + + + + + +-------+ + + | | 2023-01-04 | [facility] | 1.0 | (missing) | (missing) | | (unavailable | 18:18:07 [facility] | | | + + + +-------+ + + + + | Result panel 1408 | + + + + + +-------+ + + | | 2023-01-04 | [facility] | 1.8 | (missing) | (missing) | | (unavailable | 18:18:07 [facility] | | | + + + +-------+ + + + + | Result panel 1409 | + + + + + +-------+---------+ + | | 2023-01-04 | [facility] | 230 | mg/dL | (missing) | | (unavailable | 18:18:07 [facility] | | | + + + +-------+---------+ + + + | Result panel 1410 | + + + + + +------+---------+ + | | 2023-01-04 | [facility] | 21 | mg/dL | (missing) | | (unavailable | 18:18:07 [facility] | | | + + + +------+---------+ + + + | Result panel 1411 | + + + + + +--------+---------+ + | | 2023-01-04 | [facility] | 1.17 | mg/dL | (missing) | | (unavailable | 18:18:07 [facility] | | | + + + +--------+---------+ + + + | Result panel 1412 | + + + + + +------+ + + | | 2023-01-04 | [facility] | 56 | (missing) | (missing) | | (unavailable | 18:18:07 [facility] | | | + + + +------+ + + + + | Result panel 1413 | + + + + + +---------+ + + | | 2023-01-04 | [facility] | 17.94 | (missing) | (missing) | | (unavailable | 18:18:07 [facility] | | | + + + +---------+ + + + + | Result panel 1414 | + + + + + +-------+ + + | | 2023-01-04 | [facility] | 136 | (missing) | (missing) | | (unavailable | 18:18:07 [facility] | | | + + + +-------+ + + + + | Result panel 1415 | + + + + + +-------+ + + | | 2023-01-04 | [facility] | 4.5 | (missing) | (missing) | | (unavailable | 18:18:07 [facility] | | | + + + +-------+ + + + + | Result panel 1416 | + + + + + +------+ + + | | 2023-01-04 | [facility] | 99 | (missing) | (missing) | | (unavailable | 18:18:07 [facility] | | | + + + +------+ + + + + | Result panel 1417 | + + + + + +------+ + + | | 2023-01-04 | [facility] | 27 | (missing) | (missing) | | (unavailable | 18:18:07 [facility] | | | + + + +------+ + + + + | Result panel 1418 | + + + + + +--------+ + + | | 2023-01-04 | [facility] | 14.5 | (missing) | (missing) | | (unavailable | 18[facility]18:07 [facility] | | | + + + +--------+ + + + + | Result panel 1419 | + + + + + +--------+---------+ + | | 2023-01-04 | [facility] | 10.5 | mg/dL | (missing) | | (unavailable | 18:18:07 [facility] | | | + + + +--------+---------+ + + + | Result panel 1420 | + + + + + +-------+ + + | | 2023-01-04 | [facility] | 7.7 | (missing) | (missing) | | (unavailable | 18:18:07 [facility] | | | + + + +-------+ + + + + | Result panel 1421 | + + + + + +-------+ + + | | 2023-01-04 | [facility] | 3.7 | (missing) | (missing) | | (unavailable | 18:18:07 [facility] | | | + + + +-------+ + + + + | Result panel 1422 | + + + + + +-------+ + + | | 2023-01-04 | [facility] | 4.0 | (missing) | (missing) | | (unavailable | 18:18:07 [facility] | | | + + + +-------+ + + + + | Result panel 1423 | + + + + + +--------+ + + | | 2023-01-04 | [facility] | 0.93 | (missing) | (missing) | | (unavailable | 18:18:07 [facility] | | | + + + +--------+ + + + + | Result panel 1424 | + + + + + +-------+ + + | | 2023-01-04 | [facility] | 0.2 | (missing) | (missing) | | (unavailable | 18:18:07 [facility] | | | + + + +-------+ + + + + | Result panel 1425 | + + + + + +------+ + + | | 2023-01-04 | [facility] | 25 | (missing) | (missing) | | (unavailable | 18:18:07 [facility] | | | + + + +------+ + + + + | Result panel 1426 | + + + + + +------+ + + | | 2023-01-04 | [facility] | 46 | (missing) | (missing) | | (unavailable | 18:18:07 [facility] | | | + + + +------+ + + + + | Result panel 1427 | + + + + + +-------+ + + | | 2023-01-04 | [facility] | 141 | (missing) | (missing) | | (unavailable | 18:18:07 [facility] | | | | + + + +-------+ + + + + | Result panel 1428 | + + + + + +------+ + + | | 2023-01-04 | [facility] | 74 | (missing) | (missing) | | (unavailable | 18:18:07 [facility] | | | | + + + +------+ + + + + | Result panel 1429 | + + + + + +--------+ + + | | 2023-01-04 | [facility] | 16.6 | (missing) | (missing) | | (unavailable | 18:18:07 [facility] | | | | + + + +--------+ + + + + | Result panel 1430 | + + + + + +--------+ + + | | 2023-01-04 | [facility] | 5.34 | (missing) | (missing) | | (unavailable | 18:18:07 [facility] | | | | + + + +--------+ + + + + | Result panel 1431 | + + + + + +--------+ + + | | 2023-01-04 | [facility] | 16.4 | (missing) | (missing) | | (unavailable | 18:18:07 [facility] | | | | + + + +--------+ + + + + | Result panel 1432 | + + + + + +--------+ + + | | 2023-01-04 | [facility] | 49.2 | (missing) | (missing) | | (unavailable | 18:18:07 [facility] | | | | + + + +--------+ + + + + | Result panel 1433 | + + + + + +--------+ + + | | 2023-01-04 | [facility] | 92.2 | (missing) | (missing) | | (unavailable | 18:18:07 [facility] | | | | + + + +--------+ + + + + | Result panel 1434 | + + + + + +--------+ + + | | 2023-01-04 | [facility] | 30.7 | (missing) | (missing) | | (unavailable | 18:18:07 [facility] | | | | + + + +--------+ + + + + | Result panel 1435 | + + + + + +--------+ + + | | 2023-01-04 | [facility] | 33.3 | (missing) | (missing) | | (unavailable | 18:18:07 [facility] | | | | + + + +--------+ + + + + | Result panel 1436 | + + + + + +--------+ + + | | 2023-01-04 | [facility] | 14.1 | (missing) | (missing) | | (unavailable | 18:18:07 [facility] | | | | + + + +--------+ + + + + | Result panel 1437 | + + + + + +-------+ + + | | 2023-01-04 | [facility] | 366 | (missing) | (missing) | | (unavailable | 18:18:07 [facility] | | | | + + + +-------+ + + + + | Result panel 1438 | + + + + + +--------+ + + | | 2023-01-04 | [facility] | 66.5 | (missing) | (missing) | | (unavailable | 18:18:07 [facility] | | | | + + + +--------+ + + + + | Result panel 1439 | + + + + + +--------+ + + | | 2023-01-04 | [facility] | 25.7 | (missing) | (missing) | | (unavailable | 18:18:07 [facility] | | | | + + + +--------+ + + + + | Result panel 1440 | + + + + + +-------+ + + | | 2023-01-04 | [facility] | 5.0 | (missing) | (missing) | | (unavailable | 18:18:07 [facility] | | | | + + + +-------+ + + + + | Result panel 1441 | + + + + + +-------+ + + | | 2023-01-04 | [facility] | 1.0 | (missing) | (missing) | | (unavailable | 18:18:07 [facility] | | | | + + + +-------+ + + + + | Result panel 1442 | + + + + + +-------+ + + | | 2023-01-04 | [facility] | 1.8 | (missing) | (missing) | | (unavailable | 18:18:07 [facility] | | | | + + + +-------+ + + + + | Result panel 1443 | + + + + + +-------+---------+ + | | 2023-01-04 | [facility] | 230 | mg/dL | (missing) | | (unavailable | 18:18:07 [facility] | | | | + + + +-------+---------+ + + + | Result panel 1444 | + + + + + +------+---------+ + | | 2023-01-04 | [facility] | 21 | mg/dL | (missing) | | (unavailable | 18:18:07 | [facility] | [facility] | [facility] | | + + + +------+---------+ + + + | Result panel 1445 | + + + + + +--------+---------+ + | | 2023-01-04 | [facility] | 1.17 | mg/dL | (missing) | | (unavailable | [facility]18:07 [facility] | | | | + + + +--------+---------+ + + + | Result panel 1446 | + + + + + +------+ + + | | 2023-01-04 | [facility] | 56 | (missing) | (missing) | | (unavailable | [facility]07 [facility] | | | | + + + +------+ + + + + | Result panel 1447 | + + + + + +---------+ + + | | 2023-01-04 | [facility] | 17.94 | (missing) | (missing) | | (unavailable | [facility] | | | | + + + +---------+ + + + + | Result panel 1448 | + + + + + +-------+ + + | | 2023-01-04 | [facility] | 136 | (missing) | (missing) | | (unavailable | [facility]07 [facility] | | | + + + +-------+ + + + + | Result panel 1449 | + + + + + +-------+ + + | | 2023-01-04 | [facility] | 4.5 | (missing) | (missing) | | (unavailable | [facility] | | | + + + +-------+ + + + + | Result panel 1450 | + + + + + +------+ + + | | 2023-01-04 | [facility] | 99 | (missing) | (missing) | | (unavailable | [facility] | | | + + + +------+ + + + + | Result panel 1451 | + + + + + +------+ + + | | 2023-01-04 | [facility] | 27 | (missing) | (missing) | | (unavailable | [facility] | | | + + + +------+ + + + + | Result panel 1452 | + + + + + +--------+ + + | | 2023-01-04 | [facility] | 14.5 | (missing) | (missing) | | (unavailable | [facility] | | | + + + +--------+ + + + + | Result panel 1453 | + + + + + +--------+---------+ + | | 2023-01-04 | [facility] | 10.5 | mg/dL | (missing) | | (unavailable | [facility] | | | + + + +--------+---------+ + + + | Result panel 1454 | + + + + + +-------+ + + | | 2023-01-04 | [facility] | 7.7 | (missing) | (missing) | | (unavailable | [facility] | | | + + + +-------+ + + + + | Result panel 1455 | + + + + + +-------+ + + | | 2023-01-04 | [facility] | 3.7 | (missing) | (missing) | | (unavailable | [facility] | | | + + + +-------+ + + + + | Result panel 1456 | + + + + + +-------+ + + | | 2023-01-04 | [facility] | 4.0 | (missing) | (missing) | | (unavailable | [facility] | | | + + + +-------+ + + + + | Result panel 1457 | + + + + + +--------+ + + | | 2023-01-04 | [facility] | 0.93 | (missing) | (missing) | | (unavailable | [facility] | | | + + + +--------+ + + + + | Result panel 1458 | + + + + + +-------+ + + | | 2023-01-04 | [facility] | 0.2 | (missing) | (missing) | | (unavailable | [facility] | | | + + + +-------+ + + + + | Result panel 1459 | + + + + + +------+ + + | | 2023-01-04 | [facility] | 25 | (missing) | (missing) | | (unavailable | [facility] | | | + + + +------+ + + + + | Result panel 1460 | + + + + + +------+ + + | | 2023-01-04 | [facility] | 46 | (missing) | (missing) | | (unavailable | [facility] | | | + + + +------+ + + + + | Result panel 1461 | + + + + + +-------+ + + | | 2023-01-04 | [facility] | 141 | (missing) | (missing) | | (unavailable | [facility] | | | + + + +-------+ + + + + | Result panel 1462 | + + + + + +------+ + + | | 2023-01-04 | [facility] | 74 | (missing) | (missing) | | (unavailable | [facility] | | | + + + +------+ + + + + | Result panel 1463 | + + + + + +--------+ + + | | 2023-01-04 | [facility] | 16.6 | (missing) | (missing) | | (unavailable | [facility] | | | + + + +--------+ + + + + | Result panel 1464 | + + + + + +--------+ + + | | 2023-01-04 | [facility] | 5.34 | (missing) | (missing) | | (unavailable | [facility] | | | + + + +--------+ + + + + | Result panel 1465 | + + + + + +--------+ + + | | 2023-01-04 | [facility] | 16.4 | (missing) | (missing) | | (unavailable | [facility] | | | + + + +--------+ + + + + | Result panel 1466 | + + + + + +--------+ + + | | 2023-01-04 | [facility] | 49.2 | (missing) | (missing) | | (unavailable | [facility] | | | + + + +--------+ + + + + | Result panel 1467 | + + + + + +--------+ + + | | 2023-01-04 | [facility] | 92.2 | (missing) | (missing) | | (unavailable | [facility] | | | + + + +--------+ + + + + | Result panel 1468 | + + + + + +--------+ + + | | 2023-01-04 | [facility] | 30.7 | (missing) | (missing) | | (unavailable | [facility] | | | + + + +--------+ + + + + | Result panel 1469 | + + + + + +--------+ + + | | 2023-01-04 | [facility] | 33.3 | (missing) | (missing) | | (unavailable | [facility] | | | + + + +--------+ + + + + | Result panel 1470 | + + + + + +--------+ + + | | 2023-01-04 | [facility] | 14.1 | (missing) | (missing) | | (unavailable | [facility] | | | + + + +--------+ + + + + | Result panel 1471 | + + + + + +-------+ + + | | 2023-01-04 | [facility] | 366 | (missing) | (missing) | | (unavailable | [facility] | | | + + + +-------+ + + + + | Result panel 1472 | + + + + + +--------+ + + | | 2023-01-04 | [facility] | 66.5 | (missing) | (missing) | | (unavailable | [facility] | | | + + + +--------+ + + + + | Result panel 1473 | + + + + + +--------+ + + | | 2023-01-04 | [facility] | 25.7 | (missing) | (missing) | | (unavailable | [facility] | | | + + + +--------+ + + + + | Result panel 1474 | + + + + + +-------+ + + | | 2023-01-04 | [facility] | 5.0 | (missing) | (missing) | | (unavailable | [facility] | | | + + + +-------+ + + + + | Result panel 1475 | + + + + + +-------+ + + | | 2023-01-04 | [facility] | 1.0 | (missing) | (missing) | | (unavailable | [facility] | | | + + + +-------+ + + + + | Result panel 1476 | + + + + + +-------+ + + | | 2023-01-04 | [facility] | 1.8 | (missing) | (missing) | | (unavailable | [facility] | | | + + + +-------+ + + + + | Result panel 1477 | + + + + + +-------+---------+ + | | 2023-01-04 | [facility] | 230 | mg/dL | (missing) | | (unavailable | [facility] | | | + + + +-------+---------+ + + + | Result panel 1478 | + + + + + +------+---------+ + | | 2023-01-04 | [facility] | 21 | mg/dL | (missing) | | (unavailable | [facility] | | | + + + +------+---------+ + + + | Result panel 1479 | + + + + + +--------+---------+ + | | 2023-01-04 | [facility] | 1.17 | mg/dL | (missing) | | (unavailable | [facility] | | | + + + +--------+---------+ + + + | Result panel 1480 | + + + + + +------+ + + | | 2023-01-04 | [facility] | 56 | (missing) | (missing) | | (unavailable | [facility] | | | + + + +------+ + + + + | Result panel 1481 | + + + + + +---------+ + + | | 2023-01-04 | [facility] | 17.94 | (missing) | (missing) | | (unavailable | [facility] | | | + + + +---------+ + + + + | Result panel 1482 | + + + + + +-------+ + + | | 2023-01-04 | [facility] | 136 | (missing) | (missing) | | (unavailable | [facility] | | | + + + +-------+ + + + + | Result panel 1483 | + + + + + +-------+ + + | | 2023-01-04 | [facility] | 4.5 | (missing) | (missing) | | (unavailable | [facility] | | | + + + +-------+ + + + + | Result panel 1484 | + + + + + +------+ + + | | 2023-01-04 | [facility] | 99 | (missing) | (missing) | | (unavailable | [facility] | | | + + + +------+ + + + + | Result panel 1485 | + + + + + +------+ + + | | 2023-01-04 | [facility] | 27 | (missing) | (missing) | | (unavailable | [facility] | | | + + + +------+ + + + + | Result panel 1486 | + + + + + +--------+ + + | | 2023-01-04 | [facility] | 14.5 | (missing) | (missing) | | (unavailable | [facility] | | | + + + +--------+ + + + + | Result panel 1487 | + + + + + +--------+---------+ + | | 2023-01-04 | [facility] | 10.5 | mg/dL | (missing) | | (unavailable | [facility] | | | + + + +--------+---------+ + + + | Result panel 1488 | + + + + + +-------+ + + | | 2023-01-04 | [facility] | 7.7 | (missing) | (missing) | | (unavailable | [facility] | | | + + + +-------+ + + + + | Result panel 1489 | + + + + + +-------+ + + | | 2023-01-04 | [facility] | 3.7 | (missing) | (missing) | | (unavailable | [facility] | | | + + + +-------+ + + + + | Result panel 1490 | + + + + + +-------+ + + | | 2023-01-04 | [facility] | 4.0 | (missing) | (missing) | | (unavailable | [facility] | | | + + + +-------+ + + + + | Result panel 1491 | + + + + + +--------+ + + | | 2023-01-04 | [facility] | 0.93 | (missing) | (missing) | | (unavailable | [facility] | | | + + + +--------+ + + + + | Result panel 1492 | + + + + + +-------+ + + | | 2023-01-04 | [facility] | 0.2 | (missing) | (missing) | | (unavailable | [facility] | | | + + + +-------+ + + + + | Result panel 1493 | + + + + + +------+ + + | | 2023-01-04 | [facility] | 25 | (missing) | (missing) | | (unavailable | [facility] | | | + + + +------+ + + + + | Result panel 1494 | + + + + + +------+ + + | | 2023-01-04 | [facility] | 46 | (missing) | (missing) | | (unavailable | [facility] | | | + + + +------+ + + + + | Result panel 1495 | + + + + + +-------+ + + | | 2023-01-04 | [facility] | 141 | (missing) | (missing) | | (unavailable | [facility] | | | + + + +-------+ + + + + | Result panel 1496 | + + + + + +------+ + + | | 2023-01-04 | [facility] | 74 | (missing) | (missing) | | (unavailable | [facility] | | | + + + +------+ + + + + | Result panel 1497 | + + + + + +--------+ + + | | 2023-01-04 | [facility] | 16.6 | (missing) | (missing) | | (unavailable | [facility] | | | + + + +--------+ + + + + | Result panel 1498 | + + + + + +--------+ + + | | 2023-01-04 | [facility] | 5.34 | (missing) | (missing) | | (unavailable | [facility] | | | + + + +--------+ + + + + | Result panel 1499 | + + + + + +--------+ + + | | 2023-01-04 | [facility] | 16.4 | (missing) | (missing) | | (unavailable | [facility] | | | + + + +--------+ + + + + | Result panel 1500 | + + + + + +--------+ + + | | 2023-01-04 | [facility] | 49.2 | (missing) | (missing) | | (unavailable | [facility] | | | + + + +--------+ + + + + | Result panel 1501 | + + + + + +--------+ + + | | 2023-01-04 | [facility] | 92.2 | (missing) | (missing) | | (unavailable | [facility] | | | + + + +--------+ + + + + | Result panel 1502 | + + + + + +--------+ + + | | 2023-01-04 | [facility] | 30.7 | (missing) | (missing) | | (unavailable | [facility] | | | + + + +--------+ + + + + | Result panel 1503 | + + + + + +--------+ + + | | 2023-01-04 | [facility] | 33.3 | (missing) | (missing) | | (unavailable | [facility] | | | + + + +--------+ + + + + | Result panel 1504 | + + + + + +--------+ + + | | 2023-01-04 | [facility] | 14.1 | (missing) | (missing) | | (unavailable | [facility] | | | + + + +--------+ + + + + | Result panel 1505 | + + + + + +-------+ + + | | 2023-01-04 | [facility] | 366 | (missing) | (missing) | | (unavailable | [facility] | | | + + + +-------+ + + + + | Result panel 1506 | + + + + + +--------+ + + | | 2023-01-04 | [facility] | 66.5 | (missing) | (missing) | | (unavailable | [facility]07 [facility] | | | + + + +--------+ + + + + | Result panel 1507 | + + + + + + + + + | | 2023-01-17 | [facility] | NEGATIVE | (missing) | (missing) | | (unavailable | 10:25:07 [facility] | | | + + + + + + + + + | Result panel 1508 | + + + + + + + + + | | 2023-01-17 | [facility] | NEGATIVE | (missing) | (missing) | | (unavailable | 10[facility]25:07 [facility] | | | + + + + + + + + + | Result panel 1509 | + + + + + + + + + | | 2023-01-17 | [facility] | NEGATIVE | (missing) | (missing) | | (unavailable | [facility]25:07 [facility] | | | + + + + + + + + + | Result panel 1510 | + + + + + + + + + | | 2023-01-17 | [facility] | NEGATIVE | (missing) | (missing) | | (unavailable | [facility]25:07 [facility] | | | + + + + + + + + + | Result panel 1511 | + + + + + + + + + | | 2023-01-17 | [facility] | SQUAMOUS 1+ | (missing) | (missing) | | (unavailable | 11:09:07 [facility] | | | + + + + + + + + + | Result panel 1512 | + + + + + + + + + | | 2023-01-17 | [facility] | YELLOW | (missing) | (missing) | | (unavailable | [facility]55:07 [facility] | | | + + + + + + + + + | Result panel 1513 | + + + + + +-------+ + + | | 2023-01-17 | [facility] | 1.0 | (missing) | (missing) | | (unavailable | [facility]55[facility] | | | + + + +-------+ + + + + | Result panel 1514 | + + + + + + + + + | | 2023-01-17 | [facility] | POSITIVE | (missing) | (missing) | | (unavailable | [facility]55[facility] | | | + + + + + + + + + | Result panel 1515 | + + + + + + + + + | | 2023-01-17 | [facility] | NEGATIVE | (missing) | (missing) | | (unavailable | [facility]55[facility] | | | + + + + + + + + + | Result panel 1516 | + + + + + +-------+ + + | | 2023-01-17 | [facility] | 0-1 | (missing) | (missing) | | (unavailable | [facility]55[facility] | | | + + + +-------+ + + + + | Result panel 1517 | + + + + + +-------+ + + | | 2023-01-17 | [facility] | 4-6 | (missing) | (missing) | | (unavailable | [facility]55:07 [facility] | | | + + + +-------+ + + + + | Result panel 1518 | + + + + + +------+ + + | | 2023-01-17 | [facility] | 4+ | (missing) | (missing) | | (unavailable | [facility]55:07 [facility] | | | + + + +------+ + + + + | Result panel 1519 | + + + + + +-------+ + + | | 2023-01-17 | [facility] | Yes | (missing) | (missing) | | (unavailable | [facility]55:07 [facility] | | | + + + +-------+ + + + + | Result panel 1520 | + + + + + +---------+ + + | | 2023-01-17 | [facility] | CLEAR | (missing) | (missing) | | (unavailable | [facility]55:07 [facility] | | | + + + +---------+ + + + + | Result panel 1521 | + + + + + + + + + | | 2023-01-17 | [facility] | MODERATE | (missing) | (missing) | | (unavailable | [facility]55:07 [facility] | | | + + + + + + + + + | Result panel 1522 | + + + + + + + + + | | 2023-01-17 | [facility] | NEGATIVE | (missing) | (missing) | | (unavailable | [facility]55[facility] | | | + + + + + + + + + | Result panel 1523 | + + + + + + + + + | | 2023-01-17 | [facility] | NEGATIVE | (missing) | (missing) | | (unavailable | [facility]55[facility]07 [facility] | | | + + + + + + + + + | Result panel 1524 | + + + + + + + + + | | 2023-01-17 | [facility] | >1.030 | (missing) | (missing) | | (unavailable | [facility]55:07 [facility] | | | + + + + + + + + + | Result panel 1525 | + + + + + + + + + | | 2023-01-17 | [facility] | NEGATIVE | (missing) | (missing) | | (unavailable | [facility]55:07 [facility] | | | + + + + + + + + + | Result panel 1526 | + + + + + +-------+ + + | | 2023-01-17 | [facility] | 6.5 | (missing) | (missing) | | (unavailable | [facility]55:07 [facility] | | | + + + +-------+ + + + + | Result panel 1527 | + + + + + +--------+ + + | | 2023-01-17 | [facility] | >300 | (missing) | (missing) | | (unavailable | [facility]55:07 [facility] | | | + + + +--------+ + + Social History No information. Vital Signs + + + +---------+ | date | measurement | value | units | + + + +---------+ | 2022-01-09 00:00 | BMI | 48.1 | kg/m2 | + + + +---------+ | 2022-01-09 00:00 | BP_diastolic | 95 | mmHg | + + + +---------+ | 2022-01-09 00:00 | BP_systolic | 157 | mmHg | + + + +---------+ | 2022-01-09 00:00 | heart_rate | 66 | /min | + + + +---------+ | 2022-01-09 00:00 | height_metric | 162.56 | cm | + + + +---------+ | 2022-01-09 00:00 | height_standard | 64 | in | + + + +---------+ | 2022-01-09 00:00 | o2_saturation | 97 | % | + + + +---------+ | 2022-01-09 00:00 | respiration_rate | 18 | /min | + + + +---------+ | 2022-01-09 00:00 | temperature_metric | 37 | C | | | | | | + + + +---------+ | 2022-01-09 00:00 | | 98.6 | F | | | temperature_standar | | | | | d | | | + + + +---------+ | 2022-01-09 00:00 | weight_metric | 126.98 | kg | + + + +---------+ | 2022-01-09 00:00 | weight_standard | 279.94 | lb | + + + +---------+ | 2022-01-23 00:00 | BMI | 48.1 | kg/m2 | + + + +---------+ | 2022-01-23 00:00 | BP_diastolic | 105 | mmHg | + + + +---------+ | 2022-01-23 00:00 | BP_systolic | 153 | mmHg | + + + +---------+ | 2022-01-23 00:00 | heart_rate | 90 | /min | + + + +---------+ | 2022-01-23 00:00 | height_metric | 162.56 | cm | + + + +---------+ | 2022-01-23 00:00 | height_standard | 64 | in | + + + +---------+ | 2022-01-23 00:00 | o2_saturation | 94 | % | + + + +---------+ | 2022-01-23 00:00 | respiration_rate | 16 | /min | + + + +---------+ | 2022-01-23 00:00 | temperature_metric | 37.06 | C | | | | | | + + + +---------+ | 2022-01-23 00:00 | | 98.7 | F | | | temperature_standar | | | | | d | | | + + + +---------+ | 2022-01-23 00:00 | weight_metric | 126.98 | kg | + + + +---------+ | 2022-01-23 00:00 | weight_standard | 279.94 | lb | + + + +---------+ | 2022-02-04 00:00 | BMI | 47.5 | kg/m2 | + + + +---------+ | 2022-02-04 00:00 | BP_diastolic | 90 | mmHg | + + + +---------+ | 2022-02-04 00:00 | BP_systolic | 135 | mmHg | + + + +---------+ | 2022-02-04 00:00 | heart_rate | 76 | /min | + + + +---------+ | 2022-02-04 00:00 | height_metric | 162.56 | cm | + + + +---------+ | 2022-02-04 00:00 | height_standard | 64 | in | + + + +---------+ | 2022-02-04 00:00 | o2_saturation | 95 | % | + + + +---------+ | 2022-02-04 00:00 | respiration_rate | 20 | /min | + + + +---------+ | 2022-02-04 00:00 | temperature_metric | 36.72 | C | | | | | | + + + +---------+ | 2022-02-04 00:00 | | 98.1 | F | | | temperature_standar | | | | | d | | | + + + +---------+ | 2022-02-04 00:00 | weight_metric | 125.62 | kg | + + + +---------+ | 2022-02-04 00:00 | weight_standard | 276.94 | lb | + + + +---------+ | 2022-02-28 00:00 | BMI | 47.5 | kg/m2 | + + + +---------+ | 2022-02-28 00:00 | BP_diastolic | 88 | mmHg | + + + +---------+ | 2022-02-28 00:00 | BP_systolic | 146 | mmHg | + + + +---------+ | 2022-02-28 00:00 | heart_rate | 85 | /min | + + + +---------+ | 2022-02-28 00:00 | height_metric | 162.56 | cm | + + + +---------+ | 2022-02-28 00:00 | height_standard | 64 | in | + + + +---------+ | 2022-02-28 00:00 | o2_saturation | 91 | % | + + + +---------+ | 2022-02-28 00:00 | respiration_rate | 16 | /min | + + + +---------+ | 2022-02-28 00:00 | temperature_metric | 37.17 | C | | | | | | + + + +---------+ | 2022-02-28 00:00 | | 98.9 | F | | | temperature_standar | | | | | d | | | + + + +---------+ | 2022-02-28 00:00 | weight_metric | 125.62 | kg | + + + +---------+ | 2022-02-28 00:00 | weight_standard | 276.94 | lb | + + + +---------+ | 2022-03-04 00:00 | BMI | 45.8 | kg/m2 | + + + +---------+ | 2022-03-04 00:00 | BP_diastolic | 84 | mmHg | + + + +---------+ | 2022-03-04 00:00 | BP_systolic | 138 | mmHg | + + + +---------+ | 2022-03-04 00:00 | heart_rate | 73 | /min | + + + +---------+ | 2022-03-04 00:00 | height_metric | 162.56 | cm | + + + +---------+ | 2022-03-04 00:00 | height_standard | 64 | in | + + + +---------+ | 2022-03-04 00:00 | o2_saturation | 96 | % | + + + +---------+ | 2022-03-04 00:00 | respiration_rate | 16 | /min | + + + +---------+ | 2022-03-04 00:00 | temperature_metric | 36.78 | C | | | | | | + + + +---------+ | 2022-03-04 00:00 | | 98.2 | F | | | temperature_standar | | | | | d | | | + + + +---------+ | 2022-03-04 00:00 | weight_metric | 121.1 | kg | + + + +---------+ | 2022-03-04 00:00 | weight_standard | 266.98 | lb | + + + +---------+ | 2022-03-07 00:00 | BMI | 47.2 | kg/m2 | + + + +---------+ | 2022-03-07 00:00 | BP_diastolic | 85 | mmHg | + + + +---------+ | 2022-03-07 00:00 | BP_systolic | 128 | mmHg | + + + +---------+ | 2022-03-07 00:00 | heart_rate | 76 | /min | + + + +---------+ | 2022-03-07 00:00 | height_metric | 162.56 | cm | + + + +---------+ | 2022-03-07 00:00 | height_standard | 64 | in | + + + +---------+ | 2022-03-07 00:00 | o2_saturation | 94 | % | + + + +---------+ | 2022-03-07 00:00 | respiration_rate | 17 | /min | + + + +---------+ | 2022-03-07 00:00 | temperature_metric | 37.33 | C | | | | | | + + + +---------+ | 2022-03-07 00:00 | | 99.2 | F | | | temperature_standar | | | | | d | | | + + + +---------+ | 2022-03-07 00:00 | weight_metric | 124.71 | kg | + + + +---------+ | 2022-03-07 00:00 | weight_standard | 274.94 | lb | + + + +---------+ | 2022-03-31 00:00 | BMI | 46.7 | kg/m2 | + + + +---------+ | 2022-03-31 00:00 | BP_diastolic | 114 | mmHg | + + + +---------+ | 2022-03-31 00:00 | BP_systolic | 189 | mmHg | + + + +---------+ | 2022-03-31 00:00 | heart_rate | 97 | /min | + + + +---------+ | 2022-03-31 00:00 | height_metric | 162.56 | cm | + + + +---------+ | 2022-03-31 00:00 | height_standard | 64 | in | + + + +---------+ | 2022-03-31 00:00 | o2_saturation | 93 | % | + + + +---------+ | 2022-03-31 00:00 | respiration_rate | 18 | /min | + + + +---------+ | 2022-03-31 00:00 | temperature_metric | 37.44 | C | | | | | | + + + +---------+ | 2022-03-31 00:00 | | 99.4 | F | | | temperature_standar | | | | | d | | | + + + +---------+ | 2022-03-31 00:00 | weight_metric | 123.3 | kg | + + + +---------+ | 2022-03-31 00:00 | weight_standard | 271.83 | lb | + + + +---------+ | 2022-04-02 00:00 | BMI | 46.7 | kg/m2 | + + + +---------+ | 2022-04-02 00:00 | BP_diastolic | 122 | mmHg | + + + +---------+ | 2022-04-02 00:00 | BP_systolic | 144 | mmHg | + + + +---------+ | 2022-04-02 00:00 | heart_rate | 69 | /min | + + + +---------+ | 2022-04-02 00:00 | height_metric | 162.56 | cm | + + + +---------+ | 2022-04-02 00:00 | height_standard | 64 | in | + + + +---------+ | 2022-04-02 00:00 | o2_saturation | 96 | % | + + + +---------+ | 2022-04-02 00:00 | respiration_rate | 16 | /min | + + + +---------+ | 2022-04-02 00:00 | temperature_metric | 36.94 | C | | | | | | + + + +---------+ | 2022-04-02 00:00 | | 98.5 | F | | | temperature_standar | | | | | d | | | + + + +---------+ | 2022-04-02 00:00 | weight_metric | 123.29 | kg | + + + +---------+ | 2022-04-02 00:00 | weight_standard | 271.81 | lb | + + + +---------+ | 2022-04-13 00:00 | BMI | 46.1 | kg/m2 | + + + +---------+ | 2022-04-13 00:00 | BP_diastolic | 82 | mmHg | + + + +---------+ | 2022-04-13 00:00 | BP_systolic | 131 | mmHg | + + + +---------+ | 2022-04-13 00:00 | heart_rate | 90 | /min | + + + +---------+ | 2022-04-13 00:00 | height_metric | 162.56 | cm | + + + +---------+ | 2022-04-13 00:00 | height_standard | 64 | in | + + + +---------+ | 2022-04-13 00:00 | o2_saturation | 94 | % | + + + +---------+ | 2022-04-13 00:00 | respiration_rate | 18 | /min | + + + +---------+ | 2022-04-13 00:00 | temperature_metric | 36.94 | C | | | | | | + + + +---------+ | 2022-04-13 00:00 | | 98.5 | F | | | temperature_standar | | | | | d | | | + + + +---------+ | 2022-04-13 00:00 | weight_metric | 121.93 | kg | + + + +---------+ | 2022-04-13 00:00 | weight_standard | 268.81 | lb | + + + +---------+ | 2022-04-29 00:00 | BMI | 46.1 | kg/m2 | + + + +---------+ | 2022-04-29 00:00 | BP_diastolic | 75 | mmHg | + + + +---------+ | 2022-04-29 00:00 | BP_systolic | 131 | mmHg | + + + +---------+ | 2022-04-29 00:00 | heart_rate | 73 | /min | + + + +---------+ | 2022-04-29 00:00 | height_metric | 162.56 | cm | + + + +---------+ | 2022-04-29 00:00 | height_standard | 64 | in | + + + +---------+ | 2022-04-29 00:00 | o2_saturation | 95 | % | + + + +---------+ | 2022-04-29 00:00 | respiration_rate | 18 | /min | + + + +---------+ | 2022-04-29 00:00 | temperature_metric | 36.83 | C | | | | | | + + + +---------+ | 2022-04-29 00:00 | | 98.3 | F | | | temperature_standar | | | | | d | | | + + + +---------+ | 2022-04-29 00:00 | weight_metric | 121.93 | kg | + + + +---------+ | 2022-04-29 00:00 | weight_standard | 268.81 | lb | + + + +---------+ | 2022-05-12 00:00 | BMI | 46.1 | kg/m2 | + + + +---------+ | 2022-05-12 00:00 | BP_diastolic | 71 | mmHg | + + + +---------+ | 2022-05-12 00:00 | BP_systolic | 165 | mmHg | + + + +---------+ | 2022-05-12 00:00 | heart_rate | 80 | /min | + + + +---------+ | 2022-05-12 00:00 | height_metric | 162.56 | cm | + + + +---------+ | 2022-05-12 00:00 | height_standard | 64 | in | + + + +---------+ | 2022-05-12 00:00 | o2_saturation | 94 | % | + + + +---------+ | 2022-05-12 00:00 | respiration_rate | 14 | /min | + + + +---------+ | 2022-05-12 00:00 | temperature_metric | 37.17 | C | | | | | | + + + +---------+ | 2022-05-12 00:00 | | 98.9 | F | | | temperature_standar | | | | | d | | | + + + +---------+ | 2022-05-12 00:00 | weight_metric | 121.93 | kg | + + + +---------+ | 2022-05-12 00:00 | weight_standard | 268.81 | lb | + + + +---------+ | 2022-05-13 00:00 | BMI | 46.1 | kg/m2 | + + + +---------+ | 2022-05-13 00:00 | BP_diastolic | 63 | mmHg | + + + +---------+ | 2022-05-13 00:00 | BP_systolic | 111 | mmHg | + + + +---------+ | 2022-05-13 00:00 | heart_rate | 74 | /min | + + + +---------+ | 2022-05-13 00:00 | height_metric | 162.56 | cm | + + + +---------+ | 2022-05-13 00:00 | height_standard | 64 | in | + + + +---------+ | 2022-05-13 00:00 | o2_saturation | 93 | % | + + + +---------+ | 2022-05-13 00:00 | respiration_rate | 18 | /min | + + + +---------+ | 2022-05-13 00:00 | temperature_metric | 37.67 | C | | | | | | + + + +---------+ | 2022-05-13 00:00 | | 99.8 | F | | | temperature_standar | | | | | d | | | + + + +---------+ | 2022-05-13 00:00 | weight_metric | 121.93 | kg | + + + +---------+ | 2022-05-13 00:00 | weight_standard | 268.81 | lb | + + + +---------+ | 2022-06-04 00:00 | BMI | 46.1 | kg/m2 | + + + +---------+ | 2022-06-04 00:00 | BP_diastolic | 82 | mmHg | + + + +---------+ | 2022-06-04 00:00 | BP_systolic | 130 | mmHg | + + + +---------+ | 2022-06-04 00:00 | heart_rate | 74 | /min | + + + +---------+ | 2022-06-04 00:00 | height_metric | 162.56 | cm | + + + +---------+ | 2022-06-04 00:00 | height_standard | 64 | in | + + + +---------+ | 2022-06-04 00:00 | o2_saturation | 99 | % | + + + +---------+ | 2022-06-04 00:00 | respiration_rate | 16 | /min | + + + +---------+ | 2022-06-04 00:00 | temperature_metric | 36.78 | C | | | | | | + + + +---------+ | 2022-06-04 00:00 | | 98.2 | F | | | temperature_standar | | | | | d | | | + + + +---------+ | 2022-06-04 00:00 | weight_metric | 121.93 | kg | + + + +---------+ | 2022-06-04 00:00 | weight_standard | 268.81 | lb | + + + +---------+ | 2022-06-06 00:00 | BMI | 46.1 | kg/m2 | + + + +---------+ | 2022-06-06 00:00 | BP_diastolic | 73 | mmHg | + + + +---------+ | 2022-06-06 00:00 | BP_systolic | 126 | mmHg | + + + +---------+ | 2022-06-06 00:00 | heart_rate | 86 | /min | + + + +---------+ | 2022-06-06 00:00 | height_metric | 162.56 | cm | + + + +---------+ | 2022-06-06 00:00 | height_standard | 64 | in | + + + +---------+ | 2022-06-06 00:00 | o2_saturation | 98 | % | + + + +---------+ | 2022-06-06 00:00 | respiration_rate | 20 | /min | + + + +---------+ | 2022-06-06 00:00 | temperature_metric | 36.67 | C | | | | | | + + + +---------+ | 2022-06-06 00:00 | | 98 | F | | | temperature_standar | | | | | d | | | + + + +---------+ | 2022-06-06 00:00 | weight_metric | 121.93 | kg | + + + +---------+ | 2022-06-06 00:00 | weight_standard | 268.81 | lb | + + + +---------+ | 2022-06-25 00:00 | BMI | 46.1 | kg/m2 | + + + +---------+ | 2022-06-25 00:00 | BP_diastolic | 83 | mmHg | + + + +---------+ | 2022-06-25 00:00 | BP_systolic | 132 | mmHg | + + + +---------+ | 2022-06-25 00:00 | heart_rate | 75 | /min | + + + +---------+ | 2022-06-25 00:00 | height_metric | 162.56 | cm | + + + +---------+ | 2022-06-25 00:00 | height_standard | 64 | in | + + + +---------+ | 2022-06-25 00:00 | o2_saturation | 93 | % | + + + +---------+ | 2022-06-25 00:00 | respiration_rate | 18 | /min | + + + +---------+ | 2022-06-25 00:00 | temperature_metric | 36.83 | C | | | | | | + + + +---------+ | 2022-06-25 00:00 | | 98.3 | F | | | temperature_standar | | | | | d | | | + + + +---------+ | 2022-06-25 00:00 | weight_metric | 121.93 | kg | + + + +---------+ | 2022-06-25 00:00 | weight_standard | 268.81 | lb | + + + +---------+ | 2022-07-25 00:00 | BMI | 46.7 | kg/m2 | + + + +---------+ | 2022-07-25 00:00 | BP_diastolic | 77 | mmHg | + + + +---------+ | 2022-07-25 00:00 | BP_systolic | 129 | mmHg | + + + +---------+ | 2022-07-25 00:00 | heart_rate | 78 | /min | + + + +---------+ | 2022-07-25 00:00 | height_metric | 162.56 | cm | + + + +---------+ | 2022-07-25 00:00 | height_standard | 64 | in | + + + +---------+ | 2022-07-25 00:00 | o2_saturation | 92 | % | + + + +---------+ | 2022-07-25 00:00 | respiration_rate | 18 | /min | + + + +---------+ | 2022-07-25 00:00 | temperature_metric | 36.94 | C | | | | | | + + + +---------+ | 2022-07-25 00:00 | | 98.5 | F | | | temperature_standar | | | | | d | | | + + + +---------+ | 2022-07-25 00:00 | weight_metric | 123.38 | kg | + + + +---------+ | 2022-07-25 00:00 | weight_standard | 272 | lb | + + + +---------+ | 2022-07-25 00:00 | weight_standard | 272.01 | lb | + + + +---------+ | 2022-07-31 00:00 | BMI | 48.6 | kg/m2 | + + + +---------+ | 2022-07-31 00:00 | BP_diastolic | 99 | mmHg | + + + +---------+ | 2022-07-31 00:00 | BP_systolic | 153 | mmHg | + + + +---------+ | 2022-07-31 00:00 | heart_rate | 98 | /min | + + + +---------+ | 2022-07-31 00:00 | height_metric | 162.56 | cm | + + + +---------+ | 2022-07-31 00:00 | height_standard | 64 | in | + + + +---------+ | 2022-07-31 00:00 | o2_saturation | 98 | % | + + + +---------+ | 2022-07-31 00:00 | respiration_rate | 18 | /min | + + + +---------+ | 2022-07-31 00:00 | temperature_metric | 37.11 | C | | | | | | + + + +---------+ | 2022-07-31 00:00 | | 98.8 | F | | | temperature_standar | | | | | d | | | + + + +---------+ | 2022-07-31 00:00 | weight_metric | 128.37 | kg | + + + +---------+ | 2022-07-31 00:00 | weight_standard | 283 | lb | + + + +---------+ | 2022-07-31 00:00 | weight_standard | 283.01 | lb | + + + +---------+ | 2022-08-01 00:00 | BMI | 48.7 | kg/m2 | + + + +---------+ | 2022-08-01 00:00 | BP_diastolic | 79 | mmHg | + + + +---------+ | 2022-08-01 00:00 | BP_systolic | 153 | mmHg | + + + +---------+ | 2022-08-01 00:00 | heart_rate | 85 | /min | + + + +---------+ | 2022-08-01 00:00 | height_metric | 162.56 | cm | + + + +---------+ | 2022-08-01 00:00 | height_standard | 64 | in | + + + +---------+ | 2022-08-01 00:00 | o2_saturation | 92 | % | + + + +---------+ | 2022-08-01 00:00 | respiration_rate | 18 | /min | + + + +---------+ | 2022-08-01 00:00 | temperature_metric | 36.89 | C | | | | | | + + + +---------+ | 2022-08-01 00:00 | | 98.4 | F | | | temperature_standar | | | | | d | | | + + + +---------+ | 2022-08-01 00:00 | weight_metric | 128.73 | kg | + + + +---------+ | 2022-08-01 00:00 | weight_metric | 128.74 | kg | + + + +---------+ | 2022-08-01 00:00 | weight_standard | 283.81 | lb | + + + +---------+ | 2022-08-01 00:00 | weight_standard | 283.82 | lb | + + + +---------+ | 2022-08-19 00:00 | BMI | 48.7 | kg/m2 | + + + +---------+ | 2022-08-19 00:00 | BP_diastolic | 64 | mmHg | + + + +---------+ | 2022-08-19 00:00 | BP_systolic | 133 | mmHg | + + + +---------+ | 2022-08-19 00:00 | heart_rate | 81 | /min | + + + +---------+ | 2022-08-19 00:00 | height_metric | 162.56 | cm | + + + +---------+ | 2022-08-19 00:00 | height_standard | 64 | in | + + + +---------+ | 2022-08-19 00:00 | o2_saturation | 94 | % | + + + +---------+ | 2022-08-19 00:00 | respiration_rate | 18 | /min | + + + +---------+ | 2022-08-19 00:00 | temperature_metric | 36.83 | C | | | | | | + + + +---------+ | 2022-08-19 00:00 | | 98.3 | F | | | temperature_standar | | | | | d | | | + + + +---------+ | 2022-08-19 00:00 | weight_metric | 128.73 | kg | + + + +---------+ | 2022-08-19 00:00 | weight_metric | 128.74 | kg | + + + +---------+ | 2022-08-19 00:00 | weight_standard | 283.81 | lb | + + + +---------+ | 2022-08-19 00:00 | weight_standard | 283.82 | lb | + + + +---------+ | 2022-09-01 00:00 | BMI | 48.7 | kg/m2 | + + + +---------+ | 2022-09-01 00:00 | BP_diastolic | 94 | mmHg | + + + +---------+ | 2022-09-01 00:00 | BP_systolic | 144 | mmHg | + + + +---------+ | 2022-09-01 00:00 | heart_rate | 72 | /min | + + + +---------+ | 2022-09-01 00:00 | height_metric | 162.56 | cm | + + + +---------+ | 2022-09-01 00:00 | height_standard | 64 | in | + + + +---------+ | 2022-09-01 00:00 | o2_saturation | 98 | % | + + + +---------+ | 2022-09-01 00:00 | respiration_rate | 18 | /min | + + + +---------+ | 2022-09-01 00:00 | temperature_metric | 36.83 | C | | | | | | + + + +---------+ | 2022-09-01 00:00 | | 98.3 | F | | | temperature_standar | | | | | d | | | + + + +---------+ | 2022-09-01 00:00 | weight_metric | 128.73 | kg | + + + +---------+ | 2022-09-01 00:00 | weight_metric | 128.74 | kg | + + + +---------+ | 2022-09-01 00:00 | weight_standard | 283.81 | lb | + + + +---------+ | 2022-09-01 00:00 | weight_standard | 283.82 | lb | + + + +---------+ | 2022-09-12 00:00 | BMI | 45.1 | kg/m2 | + + + +---------+ | 2022-09-12 00:00 | height_metric | 162.56 | cm | + + + +---------+ | 2022-09-12 00:00 | height_standard | 64 | in | + + + +---------+ | 2022-09-12 00:00 | weight_metric | 119.09 | kg | + + + +---------+ | 2022-09-12 00:00 | weight_standard | 262.55 | lb | + + + +---------+ | 2022-09-15 00:00 | BMI | 47.0 | kg/m2 | + + + +---------+ | 2022-09-15 00:00 | BP_diastolic | 75 | mmHg | + + + +---------+ | 2022-09-15 00:00 | BP_systolic | 148 | mmHg | + + + +---------+ | 2022-09-15 00:00 | heart_rate | 80 | /min | + + + +---------+ | 2022-09-15 00:00 | height_metric | 162.56 | cm | + + + +---------+ | 2022-09-15 00:00 | height_standard | 64 | in | + + + +---------+ | 2022-09-15 00:00 | o2_saturation | 97 | % | + + + +---------+ | 2022-09-15 00:00 | respiration_rate | 16 | /min | + + + +---------+ | 2022-09-15 00:00 | temperature_metric | 36.67 | C | | | | | | + + + +---------+ | 2022-09-15 00:00 | | 98 | F | | | temperature_standar | | | | | d | | | + + + +---------+ | 2022-09-15 00:00 | weight_metric | 124.28 | kg | + + + +---------+ | 2022-09-15 00:00 | weight_standard | 273.99 | lb | + + + +---------+ | 2022-09-15 00:00 | weight_standard | 274 | lb | + + + +---------+ | 2022-09-16 00:00 | BMI | 47.0 | kg/m2 | + + + +---------+ | 2022-09-16 00:00 | BP_diastolic | 125 | mmHg | + + + +---------+ | 2022-09-16 00:00 | BP_diastolic | 74 | mmHg | + + + +---------+ | 2022-09-16 00:00 | BP_systolic | 147 | mmHg | + + + +---------+ | 2022-09-16 00:00 | BP_systolic | 172 | mmHg | + + + +---------+ | 2022-09-16 00:00 | heart_rate | 78 | /min | + + + +---------+ | 2022-09-16 00:00 | heart_rate | 84 | /min | + + + +---------+ | 2022-09-16 00:00 | height_metric | 162.56 | cm | + + + +---------+ | 2022-09-16 00:00 | height_standard | 64 | in | + + + +---------+ | 2022-09-16 00:00 | o2_saturation | 95 | % | + + + +---------+ | 2022-09-16 00:00 | o2_saturation | 97 | % | + + + +---------+ | 2022-09-16 00:00 | respiration_rate | 16 | /min | + + + +---------+ | 2022-09-16 00:00 | respiration_rate | 18 | /min | + + + +---------+ | 2022-09-16 00:00 | temperature_metric | 36.72 | C | | | | | | + + + +---------+ | 2022-09-16 00:00 | temperature_metric | 36.89 | C | | | | | | + + + +---------+ | 2022-09-16 00:00 | | 98.1 | F | | | temperature_standar | | | | | d | | | + + + +---------+ | 2022-09-16 00:00 | | 98.4 | F | | | temperature_standar | | | | | d | | | + + + +---------+ | 2022-09-16 00:00 | weight_metric | 124.28 | kg | + + + +---------+ | 2022-09-16 00:00 | weight_standard | 273.99 | lb | + + + +---------+ | 2022-09-16 00:00 | weight_standard | 274 | lb | + + + +---------+ | 2022-09-20 00:00 | BP_diastolic | 72 | mmHg | + + + +---------+ | 2022-09-20 00:00 | BP_systolic | 119 | mmHg | + + + +---------+ | 2022-09-20 00:00 | heart_rate | 89 | /min | + + + +---------+ | 2022-09-20 00:00 | o2_saturation | 93 | % | + + + +---------+ | 2022-09-20 00:00 | respiration_rate | 22 | /min | + + + +---------+ | 2022-09-20 00:00 | temperature_metric | 37.22 | C | | | | | | + + + +---------+ | 2022-09-20 00:00 | | 99 | F | | | temperature_standar | | | | | d | | | + + + +---------+ | 2022-10-02 00:00 | BMI | 47.2 | kg/m2 | + + + +---------+ | 2022-10-02 00:00 | BP_diastolic | 89 | mmHg | + + + +---------+ | 2022-10-02 00:00 | BP_systolic | 104 | mmHg | + + + +---------+ | 2022-10-02 00:00 | heart_rate | 69 | /min | + + + +---------+ | 2022-10-02 00:00 | height_metric | 162.56 | cm | + + + +---------+ | 2022-10-02 00:00 | height_standard | 64 | in | + + + +---------+ | 2022-10-02 00:00 | o2_saturation | 96 | % | + + + +---------+ | 2022-10-02 00:00 | respiration_rate | 20 | /min | + + + +---------+ | 2022-10-02 00:00 | temperature_metric | 36.78 | C | | | | | | + + + +---------+ | 2022-10-02 00:00 | | 98.2 | F | | | temperature_standar | | | | | d | | | + + + +---------+ | 2022-10-02 00:00 | weight_metric | 124.74 | kg | + + + +---------+ | 2022-10-02 00:00 | weight_standard | 275 | lb | + + + +---------+ | 2022-11-09 00:00 | BMI | 44.8 | kg/m2 | + + + +---------+ | 2022-11-09 00:00 | BP_diastolic | 80 | mmHg | + + + +---------+ | 2022-11-09 00:00 | BP_systolic | 163 | mmHg | + + + +---------+ | 2022-11-09 00:00 | heart_rate | 75 | /min | + + + +---------+ | 2022-11-09 00:00 | height_metric | 162.56 | cm | + + + +---------+ | 2022-11-09 00:00 | height_standard | 64 | in | + + + +---------+ | 2022-11-09 00:00 | o2_saturation | 93 | % | + + + +---------+ | 2022-11-09 00:00 | respiration_rate | 20 | /min | + + + +---------+ | 2022-11-09 00:00 | temperature_metric | 36.56 | C | | | | | | + + + +---------+ | 2022-11-09 00:00 | | 97.8 | F | | | temperature_standar | | | | | d | | | + + + +---------+ | 2022-11-09 00:00 | weight_metric | 118.39 | kg | + + + +---------+ | 2022-11-09 00:00 | weight_standard | 261 | lb | + + + +---------+ | 2022-11-09 00:00 | weight_standard | 261.01 | lb | + + + +---------+ | 2022-11-13 00:00 | BMI | 44.8 | kg/m2 | + + + +---------+ | 2022-11-13 00:00 | BP_diastolic | 72 | mmHg | + + + +---------+ | 2022-11-13 00:00 | BP_systolic | 139 | mmHg | + + + +---------+ | 2022-11-13 00:00 | heart_rate | 79 | /min | + + + +---------+ | 2022-11-13 00:00 | height_metric | 162.56 | cm | + + + +---------+ | 2022-11-13 00:00 | height_standard | 64 | in | + + + +---------+ | 2022-11-13 00:00 | o2_saturation | 96 | % | + + + +---------+ | 2022-11-13 00:00 | respiration_rate | 15 | /min | + + + +---------+ | 2022-11-13 00:00 | temperature_metric | 36.89 | C | | | | | | + + + +---------+ | 2022-11-13 00:00 | | 98.4 | F | | | temperature_standar | | | | | d | | | + + + +---------+ | 2022-11-13 00:00 | weight_metric | 118.39 | kg | + + + +---------+ | 2022-11-13 00:00 | weight_standard | 261 | lb | + + + +---------+ | 2022-11-13 00:00 | weight_standard | 261.01 | lb | + + + +---------+ | 2022-11-22 00:00 | BMI | 44.8 | kg/m2 | + + + +---------+ | 2022-11-22 00:00 | BP_diastolic | 78 | mmHg | + + + +---------+ | 2022-11-22 00:00 | BP_systolic | 122 | mmHg | + + + +---------+ | 2022-11-22 00:00 | heart_rate | 79 | /min | + + + +---------+ | 2022-11-22 00:00 | height_metric | 162.56 | cm | + + + +---------+ | 2022-11-22 00:00 | height_standard | 64 | in | + + + +---------+ | 2022-11-22 00:00 | o2_saturation | 96 | % | + + + +---------+ | 2022-11-22 00:00 | respiration_rate | 16 | /min | + + + +---------+ | 2022-11-22 00:00 | temperature_metric | 36.56 | C | | | | | | + + + +---------+ | 2022-11-22 00:00 | | 97.8 | F | | | temperature_standar | | | | | d | | | + + + +---------+ | 2022-11-22 00:00 | weight_metric | 118.39 | kg | + + + +---------+ | 2022-11-22 00:00 | weight_standard | 261 | lb | + + + +---------+ | 2022-11-22 00:00 | weight_standard | 261.01 | lb | + + + +---------+ | 2022-11-23 00:00 | BMI | 45.3 | kg/m2 | + + + +---------+ | 2022-11-23 00:00 | BMI | 45.4 | kg/m2 | + + + +---------+ | 2022-11-23 00:00 | BP_diastolic | 79 | mmHg | + + + +---------+ | 2022-11-23 00:00 | BP_systolic | 138 | mmHg | + + + +---------+ | 2022-11-23 00:00 | heart_rate | 86 | /min | + + + +---------+ | 2022-11-23 00:00 | height_metric | 162.56 | cm | + + + +---------+ | 2022-11-23 00:00 | height_standard | 64 | in | + + + +---------+ | 2022-11-23 00:00 | o2_saturation | 99 | % | + + + +---------+ | 2022-11-23 00:00 | respiration_rate | 18 | /min | + + + +---------+ | 2022-11-23 00:00 | temperature_metric | 37.11 | C | | | | | | + + + +---------+ | 2022-11-23 00:00 | | 98.8 | F | | | temperature_standar | | | | | d | | | + + + +---------+ | 2022-11-23 00:00 | weight_metric | 119.75 | kg | + + + +---------+ | 2022-11-23 00:00 | weight_metric | 120 | kg | + + + +---------+ | 2022-11-23 00:00 | weight_standard | 264 | lb | + + + +---------+ | 2022-11-23 00:00 | weight_standard | 264.55 | lb | + + + +---------+ | 2022-11-24 00:00 | BP_diastolic | 79 | mmHg | + + + +---------+ | 2022-11-24 00:00 | BP_systolic | 146 | mmHg | + + + +---------+ | 2022-11-24 00:00 | heart_rate | 76 | /min | + + + +---------+ | 2022-11-24 00:00 | o2_saturation | 97 | % | + + + +---------+ | 2022-11-24 00:00 | respiration_rate | 20 | /min | + + + +---------+ | 2022-11-24 00:00 | temperature_metric | 37.11 | C | | | | | | + + + +---------+ | 2022-11-24 00:00 | | 98.8 | F | | | temperature_standar | | | | | d | | | + + + +---------+ | 2023-01-04 00:00 | BMI | 45.3 | kg/m2 | + + + +---------+ | 2023-01-04 00:00 | BP_diastolic | 97 | mmHg | + + + +---------+ | 2023-01-04 00:00 | BP_systolic | 167 | mmHg | + + + +---------+ | 2023-01-04 00:00 | heart_rate | 83 | /min | + + + +---------+ | 2023-01-04 00:00 | height_metric | 162.56 | cm | + + + +---------+ | 2023-01-04 00:00 | height_standard | 64 | in | + + + +---------+ | 2023-01-04 00:00 | o2_saturation | 93 | % | + + + +---------+ | 2023-01-04 00:00 | respiration_rate | 18 | /min | + + + +---------+ | 2023-01-04 00:00 | temperature_metric | 37 | C | | | | | | + + + +---------+ | 2023-01-04 00:00 | | 98.6 | F | | | temperature_standar | | | | | d | | | + + + +---------+ | 2023-01-04 00:00 | weight_metric | 119.75 | kg | + + + +---------+ | 2023-01-04 00:00 | weight_standard | 264 | lb | + + + +---------+ | 2023-01-07 00:00 | BMI | 45.3 | kg/m2 | + + + +---------+ | 2023-01-07 00:00 | BP_diastolic | 81 | mmHg | + + + +---------+ | 2023-01-07 00:00 | BP_systolic | 132 | mmHg | + + + +---------+ | 2023-01-07 00:00 | heart_rate | 87 | /min | + + + +---------+ | 2023-01-07 00:00 | height_metric | 162.56 | cm | + + + +---------+ | 2023-01-07 00:00 | height_standard | 64 | in | + + + +---------+ | 2023-01-07 00:00 | o2_saturation | 96 | % | + + + +---------+ | 2023-01-07 00:00 | respiration_rate | 16 | /min | + + + +---------+ | 2023-01-07 00:00 | temperature_metric | 36.89 | C | | | | | | + + + +---------+ | 2023-01-07 00:00 | | 98.4 | F | | | temperature_standar | | | | | d | | | + + + +---------+ | 2023-01-07 00:00 | weight_metric | 119.75 | kg | + + + +---------+ | 2023-01-07 00:00 | weight_standard | 264 | lb | + + + +---------+ | 2023-01-17 00:00 | BMI | 46.9 | kg/m2 | + + + +---------+ | 2023-01-17 00:00 | BP_diastolic | 88 | mmHg | + + + +---------+ | 2023-01-17 00:00 | BP_systolic | 153 | mmHg | + + + +---------+ | 2023-01-17 00:00 | heart_rate | 78 | /min | + + + +---------+ | 2023-01-17 00:00 | height_metric | 162.56 | cm | + + + +---------+ | 2023-01-17 00:00 | height_standard | 64 | in | + + + +---------+ | 2023-01-17 00:00 | o2_saturation | 96 | % | + + + +---------+ | 2023-01-17 00:00 | respiration_rate | 19 | /min | + + + +---------+ | 2023-01-17 00:00 | temperature_metric | 37 | C | | | | | | + + + +---------+ | 2023-01-17 00:00 | | 98.6 | F | | | temperature_standar | | | | | d | | | + + + +---------+ | 2023-01-17 00:00 | weight_metric | 124 | kg | + + + +---------+ | 2023-01-17 00:00 | weight_standard | 273.37 | lb | + + + +---------+ | 2023-01-17 00:00 | weight_standard | 273.38 | lb | + + + +---------+"
--- OUTSIDE RECORDS SUMMARY | ~2023-02-02 | XMS | Continuity of Care Document ---
Demographics + + + | Address | [address] [address] | | | [place] [address] | + + + | Preferred Language | Unknown | + + + | Marital Status | | + + + | Pentecostalism Affiliation | Unknown | + + + | Race | White | + + + | Ethnic Group | Not or | + + + Author + + + | Author | [place] | + + + | Organization | [place] | + + + | Address | [address] [facility] | | | [place] [address] | + + + | Phone | | + + + Care Team Providers + + + + | Care Flight Instructor Name | Role | Phone | + [...] | (no severity) | | | | [facility] | | | + + + + + + Encounters No information. Functional Status No information. Immunizations No information. Medications + + + + | date | description | facility | + + + + | 2022-01-14 00:00 | LURASIDONE HCL | [facility] | + + + + | 2022-01-26 00:00 | LURASIDONE HCL | [facility] | + + + + | 2022-02-04 00:00 | LURASIDONE HCL | [facility] | + + + + | 2022-02-28 00:00 | LURASIDONE HCL | [facility] | + + + + | 2022-03-04 00:00 | LURASIDONE HCL | [facility] | + + + + | 2022-03-07 00:00 | LURASIDONE HCL | [facility] | + + + + | 2022-03-31 00:00 | LURASIDONE HCL | [facility] | + + + + | 2022-04-02 00:00 | LURASIDONE HCL | [facility] | + + + + | 2022-04-13 00:00 | LURASIDONE HCL | [facility] | + + + + | 2022-04-29 00:00 | LURASIDONE HCL | [facility] | + + + + | 2022-05-13 00:00 | LURASIDONE HCL | [facility] | + + + + | 2022-05-13 00:00 | LURASIDONE HCL | [facility] | + + + + | 2022-06-04 00:00 | LURASIDONE HCL | [facility] | + + + + 2022-06-06 00:00 | LURASIDONE HCL | [facility] | + + + + | 2022-06-28 00:00 | LURASIDONE HCL | [facility] | + + + + | 2022-07-25 00:00 | LURASIDONE HCL | [facility] | + + + + | 2022-07-31 00:00 | LURASIDONE HCL | [facility] | + + + + | 2022-08-01 00:00 | LURASIDONE HCL | [facility] | + + + + | 2022-08-19 00:00 | LURASIDONE HCL | [facility] | + + + + | 2022-09-01 00:00 | LURASIDONE HCL | [facility] | + + + + | 2022-09-15 00:00 | LURASIDONE HCL | [facility] | + + + + | 2022-09-16 00:00 | LURASIDONE HCL | [facility] | + + + + | 2022-09-20 00:00 | LURASIDONE HCL | [facility] | + + + + | 2022-10-02 00:00 | LURASIDONE HCL | [facility] | + + + + | 2022-11-09 00:00 | LURASIDONE HCL | [facility] | + + + + | 2022-11-13 00:00 | LURASIDONE HCL | [facility] | + + + + | 2022-11-22 00:00 | LURASIDONE HCL | [facility] | + + + + | 2022-11-24 00:00 | LURASIDONE HCL | [facility] | + + + + | 2023-01-04 00:00 | LURASIDONE HCL | [facility] | + + + + | 2023-01-07 00:00 | LURASIDONE HCL | [facility] | + + + + | 2023-01-17 00:00 | LURASIDONE HCL | [facility] | + + + + | 2022-03-31 00:00 | LORAZEPAM | [facility] | + + + + | 2022-03-31 00:00 | LORAZEPAM | [facility] | + + + + | 2022-11-22 00:00 | ONDANSETRON | [facility] | + + + + | 2022-11-22 00:00 | ONDANSETRON | [facility] | + + + + | 2022-11-22 00:00 | ONDANSETRON | [facility] | + + + + | 2022-11-22 00:00 | ONDANSETRON | [facility] | + + + + | 2022-03-04 00:00 | OXYCODONE | [facility] | | | HCL/ACETAMINOPHEN | | + + + + | 2022-03-07 00:00 | OXYCODONE | [facility] | | | HCL/ACETAMINOPHEN | | + + + + | 2022-03-31 00:00 | OXYCODONE | [facility] | | | HCL/ACETAMINOPHEN | | + + + + | 2022-04-02 00:00 | OXYCODONE | [facility] | | | HCL/ACETAMINOPHEN | | + + + + | 2022-04-13 00:00 | OXYCODONE | [facility] | | | HCL/ACETAMINOPHEN | | + + + + | 2022-04-29 00:00 | OXYCODONE | [facility] | | | HCL/ACETAMINOPHEN | | + + + + | 2022-05-13 00:00 | OXYCODONE | [facility] | | | HCL/ACETAMINOPHEN | | + + + + | 2022-05-13 00:00 | OXYCODONE | [facility] | | | HCL/ACETAMINOPHEN | | + + + + | 2022-06-04 00:00 | OXYCODONE | [facility] | | | HCL/ACETAMINOPHEN | | + + + + | 2022-06-06 00:00 | OXYCODONE | [facility] | | | HCL/ACETAMINOPHEN | | + + + + | 2022-06-28 00:00 | OXYCODONE | [facility] | | | HCL/ACETAMINOPHEN | | + + + + | 2022-07-25 00:00 | OXYCODONE | [facility] | | | HCL/ACETAMINOPHEN | | + + + + | 2022-07-31 00:00 | OXYCODONE | [facility] | | | HCL/ACETAMINOPHEN | | + + + + | 2022-08-01 00:00 | OXYCODONE | [facility] | | | HCL/ACETAMINOPHEN | | + + + + | 2022-08-19 00:00 | OXYCODONE | [facility] | | | HCL/ACETAMINOPHEN | | + + + + | 2022-09-01 00:00 | OXYCODONE | [facility] | | | HCL/ACETAMINOPHEN | | + + + + | 2022-09-15 00:00 | OXYCODONE | [facility] | | | HCL/ACETAMINOPHEN | | + + + + | 2022-09-16 00:00 | OXYCODONE | [facility] | | | HCL/ACETAMINOPHEN | | + + + + | 2022-09-20 00:00 | OXYCODONE | [facility] | | | HCL/ACETAMINOPHEN | | + + + + | 2022-10-02 00:00 | OXYCODONE | [facility] | | | HCL/ACETAMINOPHEN | | + + + + | 2022-11-09 00:00 | OXYCODONE | [facility] | | | HCL/ACETAMINOPHEN | | + + + + | 2020-07-10 00:00 | OXYCODONE HCL | [facility] | + + + + | 2020-07-10 00:00 | OXYCODONE HCL | [facility] | + + + + | 2020-07-10 00:00 | OXYCODONE HCL | [facility] | + + + + | 2020-07-10 00:00 | OXYCODONE HCL | [facility] | + + + + | 2020-07-10 00:00 | OXYCODONE HCL | [facility] | + + + + | 2020-07-10 00:00 | OXYCODONE HCL | [facility] | + + + + | 2020-07-10 00:00 | OXYCODONE HCL | [facility] | + + + + | 2020-07-10 00:00 | OXYCODONE HCL | [facility] | + + + + | 2020-07-10 00:00 | OXYCODONE HCL | [facility] | + + + + | 2022-11-13 00:00 | OXYCODONE | [facility] | | | HCL/ACETAMINOPHEN | | + + + + | 2022-11-13 00:00 | OXYCODONE | [facility] | | | HCL/ACETAMINOPHEN | | + + + + | 2022-11-13 00:00 | OXYCODONE | [facility] | | | HCL/ACETAMINOPHEN | | + + + + | 2022-11-13 00:00 | OXYCODONE | [facility] | | | HCL/ACETAMINOPHEN | | + + + + | 2022-09-20 00:00 | OXYCODONE HCL | [facility] | + + + + | 2022-10-02 00:00 | OXYCODONE HCL | [facility] | + + + + | 2022-11-09 00:00 | OXYCODONE HCL | [facility] | + + + + | 2022-11-13 00:00 | OXYCODONE HCL | [facility] | + + + + | 2022-11-22 00:00 | OXYCODONE HCL | [facility] | + + + + | 2022-11-24 00:00 | OXYCODONE HCL | [facility] | + + + + | 2023-01-04 00:00 | OXYCODONE HCL | [facility] | + + + + | 2023-01-07 00:00 | OXYCODONE HCL | [facility] | + + + + | 2023-01-17 00:00 | OXYCODONE HCL | [facility] | + + + + | 2022-04-02 00:00 | GABAPENTIN | [facility] | + + + + | 2022-04-02 00:00 | GABAPENTIN | [facility] | + + + + | 2022-04-02 00:00 | GABAPENTIN | [facility] | + + + + | 2022-01-14 00:00 | LAMOTRIGINE | [facility] | + + + + | 2022-01-26 00:00 | LAMOTRIGINE | [facility] | + + + + | 2022-02-04 00:00 | LAMOTRIGINE | [facility] | + + + + | 2022-02-28 00:00 | LAMOTRIGINE | [facility] | + + + + | 2022-03-04 00:00 | LAMOTRIGINE | [facility] | + + + + | 2022-03-07 00:00 | LAMOTRIGINE | [facility] | + + + + | 2022-03-31 00:00 | LAMOTRIGINE | [facility] | + + + + | 2022-04-02 00:00 | LAMOTRIGINE | [facility] | + + + + | 2022-04-13 00:00 | LAMOTRIGINE | [facility] | + + + + | 2022-04-29 00:00 | LAMOTRIGINE | [facility] | + + + + | 2022-05-13 00:00 | LAMOTRIGINE | [facility] | + + + + | 2022-05-13 00:00 | LAMOTRIGINE | [facility] | + + + + | 2022-06-04 00:00 | LAMOTRIGINE | [facility] | + + + + | 2022-06-06 00:00 | LAMOTRIGINE | [facility] | + + + + | 2022-06-28 00:00 | LAMOTRIGINE | [facility] | + + + + | 2022-07-25 00:00 | LAMOTRIGINE | [facility] | + + + + | 2022-07-31 00:00 | LAMOTRIGINE | [facility] | + + + + | 2022-08-01 00:00 | LAMOTRIGINE | [facility] | + + + + | 2022-08-19 00:00 | LAMOTRIGINE | [facility] | + + + + | 2022-09-01 00:00 | LAMOTRIGINE | [facility] | + + + + | 2022-09-15 00:00 | LAMOTRIGINE | [facility] | + + + + | 2022-09-16 00:00 | LAMOTRIGINE | [facility] | + + + + | 2022-09-20 00:00 | LAMOTRIGINE | [facility] | + + + + | 2022-10-02 00:00 | LAMOTRIGINE | [facility] | + + + + | 2022-11-09 00:00 | LAMOTRIGINE | [facility] | + + + + | 2022-11-13 00:00 | LAMOTRIGINE | [facility] | + + + + | 2022-11-22 00:00 | LAMOTRIGINE | [facility] | + + + + | 2022-11-24 00:00 | LAMOTRIGINE | [facility] | + + + + | 2023-01-04 00:00 | LAMOTRIGINE | [facility] | + + + + | 2023-01-07 00:00 | LAMOTRIGINE | [facility] | + + + + | 2023-01-17 00:00 | LAMOTRIGINE | [facility] | + + + + | 2022-05-13 00:00 | METHYLPHENIDATE HCL | [facility] | + + + + | 2022-05-13 00:00 | METHYLPHENIDATE HCL | [facility] | + + + + | 2022-06-04 00:00 | METHYLPHENIDATE HCL | [facility] | + + + + | 2022-06-06 00:00 | METHYLPHENIDATE HCL | [facility] | + + + + | 2022-06-28 00:00 | METHYLPHENIDATE HCL | [facility] | + + + + | 2022-07-25 00:00 | METHYLPHENIDATE HCL | [facility] | + + + + | 2022-07-31 00:00 | METHYLPHENIDATE HCL | [facility] | + + + + | 2022-08-01 00:00 | METHYLPHENIDATE HCL | [facility] | + + + + | 2022-08-19 00:00 | METHYLPHENIDATE HCL | [facility] | + + + + | 2022-09-01 00:00 | METHYLPHENIDATE HCL | [facility] | + + + + | 2022-09-15 00:00 | METHYLPHENIDATE HCL | [facility] | + + + + | 2022-09-16 00:00 | METHYLPHENIDATE HCL | [facility] | + + + + | 2022-09-20 00:00 | METHYLPHENIDATE HCL | [facility] | + + + + | 2022-10-02 00:00 | METHYLPHENIDATE HCL | [facility] | + + + + | 2022-11-09 00:00 | METHYLPHENIDATE HCL | [facility] | + + + + | 2022-11-13 00:00 | METHYLPHENIDATE HCL | [facility] | + + + + | 2022-11-22 00:00 | METHYLPHENIDATE HCL | [facility] | + + + + | 2022-11-24 00:00 | METHYLPHENIDATE HCL | [facility] | + + + + | 2023-01-04 00:00 | METHYLPHENIDATE HCL | [facility] | + + + + | 2023-01-07 00:00 | METHYLPHENIDATE HCL | [facility] | + + + + | 2023-01-17 00:00 | METHYLPHENIDATE HCL | [facility] | + + + + | 2022-01-14 00:00 | METHYLPHENIDATE HCL | [facility] | + + + + | 2022-01-26 00:00 | METHYLPHENIDATE HCL | [facility] | + + + + | 2022-02-04 00:00 | METHYLPHENIDATE HCL | [facility] | + + + + | 2022-02-28 00:00 | METHYLPHENIDATE HCL | [facility] | + + + + | 2022-03-04 00:00 | METHYLPHENIDATE HCL | [facility] | + + + + | 2022-03-07 00:00 | METHYLPHENIDATE HCL | [facility] | + + + + | 2022-03-31 00:00 | METHYLPHENIDATE HCL | [facility] | + + + + | 2022-04-02 00:00 | METHYLPHENIDATE HCL | [facility] | + + + + | 2022-04-13 00:00 | METHYLPHENIDATE HCL | [facility] | + + + + | 2022-04-29 00:00 | METHYLPHENIDATE HCL | [facility] | + + + + | 2022-05-13 00:00 | METHYLPHENIDATE HCL | [facility] | + + + + | 2022-05-13 00:00 | METHYLPHENIDATE HCL | [facility] | + + + + | 2022-06-04 00:00 | METHYLPHENIDATE HCL | [facility] | + + + + | 2022-06-06 00:00 | METHYLPHENIDATE HCL | [facility] | + + + + | 2022-06-28 00:00 | METHYLPHENIDATE HCL | [facility] | + + + + | 2022-07-25 00:00 | METHYLPHENIDATE HCL | [facility] | + + + + | 2022-07-31 00:00 | METHYLPHENIDATE HCL | [facility] | + + + + | 2022-08-01 00:00 | METHYLPHENIDATE HCL | [facility] | + + + + | 2022-08-19 00:00 | METHYLPHENIDATE HCL | [facility] | + + + + | 2022-09-01 00:00 | METHYLPHENIDATE HCL | [facility] | + + + + | 2022-09-15 00:00 | METHYLPHENIDATE HCL | [facility] | + + + + | 2022-09-16 00:00 | METHYLPHENIDATE HCL | [facility] | + + + + | 2022-09-20 00:00 | METHYLPHENIDATE HCL | [facility] | + + + + | 2022-10-02 00:00 | METHYLPHENIDATE HCL | [facility] | + + + + | 2022-11-09 00:00 | METHYLPHENIDATE HCL | [facility] | + + + + | 2022-11-13 00:00 | METHYLPHENIDATE HCL | [facility] | + + + + | 2022-11-22 00:00 | METHYLPHENIDATE HCL | [facility] | + + + + | 2022-11-24 00:00 | METHYLPHENIDATE HCL | [facility] | + + + + | 2023-01-04 00:00 | METHYLPHENIDATE HCL | [facility] | + + + + | 2023-01-07 00:00 | METHYLPHENIDATE HCL | [facility] | + + + + | 2023-01-17 00:00 | METHYLPHENIDATE HCL | [facility] | + + + + | 2022-03-07 00:00 | PHENAZOPYRIDINE HCL | [facility] | + + + + | 2022-03-07 00:00 | PHENAZOPYRIDINE HCL | [facility] | + + + + | 2022-03-07 00:00 | PHENAZOPYRIDINE HCL | [facility] | + + + + | 2022-03-07 00:00 | PHENAZOPYRIDINE HCL | [facility] | + + + + | 2022-03-07 00:00 | PHENAZOPYRIDINE HCL | [facility] | + + + + | 2022-03-07 00:00 | PHENAZOPYRIDINE HCL | [facility] | + + + + | 2022-03-07 00:00 | PHENAZOPYRIDINE HCL | [facility] | + + + + | 2022-03-07 00:00 | PHENAZOPYRIDINE HCL | [facility] | + + + + | 2022-03-07 00:00 | PHENAZOPYRIDINE HCL | [facility] | + + + + | 2023-01-17 00:00 | PHENAZOPYRIDINE HCL | [facility] | + + + + | 2022-04-13 00:00 | clonAZEpam | [facility] | + + + + | 2022-04-29 00:00 | clonAZEpam | [facility] | + + + + | 2022-11-09 00:00 | | [facility] | | | SULFAMETHOXAZOLE/TRIMETHOPR | | | | IM | | + + + + | 2022-09-20 00:00 | ACETAMINOPHEN | [facility] | + + + + | 2022-10-02 00:00 | ACETAMINOPHEN | [facility] | + + + + | 2022-11-09 00:00 | ACETAMINOPHEN | [facility] | + + + + | 2022-11-13 00:00 | ACETAMINOPHEN | [facility] | + + + + | 2022-11-22 00:00 | ACETAMINOPHEN | [facility] | + + + + | 2022-11-24 00:00 | ACETAMINOPHEN | [facility] | + + + + | 2023-01-04 00:00 | ACETAMINOPHEN | [facility] | + + + + | 2023-01-07 00:00 | ACETAMINOPHEN | [facility] | + + + + | 2023-01-17 00:00 | ACETAMINOPHEN | [facility] | + + + + | 2022-03-04 00:00 | CIPROFLOXACIN HCL | [facility] | + + + + | 2022-11-13 00:00 | CIPROFLOXACIN HCL | [facility] | + + + + | 2022-11-13 00:00 | CIPROFLOXACIN HCL | [facility] | + + + + | 2022-11-13 00:00 | CIPROFLOXACIN HCL | [facility] | + + + + | 2022-11-13 00:00 | CIPROFLOXACIN HCL | [facility] | + + + + | 2022-06-25 00:00 | METOCLOPRAMIDE HCL | [facility] | + + + + | 2022-07-25 00:00 | | [facility] | | | SULFAMETHOXAZOLE/TRIMETHOPR | | | | IM | | + + + + | 2022-07-25 00:00 | | [facility] | | | SULFAMETHOXAZOLE/TRIMETHOPR | | | | IM | | + + + + | 2022-07-25 00:00 | | [facility] | | | SULFAMETHOXAZOLE/TRIMETHOPR | | | | IM | | + + + + | 2022-07-25 00:00 | | [facility] | | | SULFAMETHOXAZOLE/TRIMETHOPR | | | | IM | | + + + + | 2022-07-25 00:00 | | [facility] | | | SULFAMETHOXAZOLE/TRIMETHOPR | | | | IM | | + + + + | 2022-07-25 00:00 | | [facility] | | | SULFAMETHOXAZOLE/TRIMETHOPR | | | | IM | | + + + + | 2022-06-25 00:00 | PANTOPRAZOLE SODIUM | [facility] | + + + + | 2022-01-14 00:00 | MIRTAZAPINE | [facility] | + + + + | 2022-01-26 00:00 | MIRTAZAPINE | [facility] | + + + + | 2022-02-04 00:00 | MIRTAZAPINE | [facility] | + + + + | 2022-02-28 00:00 | MIRTAZAPINE | [facility] | + + + + | 2022-03-04 00:00 | MIRTAZAPINE | [facility] | + + + + | 2022-03-07 00:00 | MIRTAZAPINE | [facility] | + + + + | 2022-03-31 00:00 | MIRTAZAPINE | [facility] | + + + + | 2022-04-02 00:00 | MIRTAZAPINE | [facility] | + + + + | 2022-04-13 00:00 | MIRTAZAPINE | [facility] | + + + + | 2022-04-29 00:00 | MIRTAZAPINE | [facility] | + + + + | 2022-05-13 00:00 | MIRTAZAPINE | [facility] | + + + + | 2022-05-13 00:00 | MIRTAZAPINE | [facility] | + + + + | 2022-06-04 00:00 | MIRTAZAPINE | [facility] | + + + + | 2022-06-06 00:00 | MIRTAZAPINE | [facility] | + + + + | 2022-06-28 00:00 | MIRTAZAPINE | [facility] | + + + + | 2022-07-25 00:00 | MIRTAZAPINE | [facility] | + + + + 2022-07-31 00:00 | MIRTAZAPINE | [facility] | + + + + | 2022-08-01 00:00 | MIRTAZAPINE | [facility] | + + + + | 2022-08-19 00:00 | MIRTAZAPINE | [facility] | + + + + | 2022-09-01 00:00 | MIRTAZAPINE | [facility] | + + + + | 2022-09-15 00:00 | MIRTAZAPINE | [facility] | + + + + | 2022-09-16 00:00 | MIRTAZAPINE | [facility] | + + + + | 2022-09-20 00:00 | MIRTAZAPINE | [facility] | + + + + | 2022-10-02 00:00 | MIRTAZAPINE | [facility] | + + + + | 2022-11-09 00:00 | MIRTAZAPINE | [facility] | + + + + | 2022-11-13 00:00 | MIRTAZAPINE | [facility] | + + + + | 2022-11-22 00:00 | MIRTAZAPINE | [facility] | + + + + | 2022-11-24 00:00 | MIRTAZAPINE | [facility] | + + + + | 2023-01-04 00:00 | MIRTAZAPINE | [facility] | + + + + | 2023-01-07 00:00 | MIRTAZAPINE | [facility] | + + + + | 2023-01-17 00:00 | MIRTAZAPINE | [facility] | + + + + | 2020-07-13 00:00 | ONDANSETRON | [facility] | + + + + | 2020-07-13 00:00 | ONDANSETRON | [facility] | + + + + | 2020-07-13 00:00 | ONDANSETRON | [facility] | + + + + | 2020-07-13 00:00 | ONDANSETRON | [facility] | + + + + | 2020-07-13 00:00 | ONDANSETRON | [facility] | + + + + | 2020-07-13 00:00 | ONDANSETRON | [facility] | + + + + | 2020-07-13 00:00 | ONDANSETRON | [facility] | + + + + | 2020-07-13 00:00 | ONDANSETRON | [facility] | + + + + | 2020-07-13 00:00 | ONDANSETRON | [facility] | + + + + | 2022-04-02 00:00 | ONDANSETRON | [facility] | + + + + | 2022-04-02 00:00 | ONDANSETRON | [facility] | + + + + | 2022-04-02 00:00 | ONDANSETRON | [facility] | + + + + | 2022-04-02 00:00 | ONDANSETRON | [facility] | + + + + | 2022-04-02 00:00 | ONDANSETRON | [facility] | + + + + | 2022-04-02 00:00 | ONDANSETRON | [facility] | + + + + | 2022-04-02 00:00 | ONDANSETRON | [facility] | + + + + | 2022-04-02 00:00 | ONDANSETRON | [facility] | + + + + | 2022-04-02 00:00 | ONDANSETRON | [facility] | + + + + | 2022-11-13 00:00 | ONDANSETRON | [facility] | + + + + | 2022-11-13 00:00 | ONDANSETRON | [facility] | + + + + | 2022-11-13 00:00 | ONDANSETRON | [facility] | + + + + | 2022-11-13 00:00 | ONDANSETRON | [facility] | + + + + | 2020-07-06 00:00 | predniSONE | [facility] | + + + + | 2020-07-06 00:00 | predniSONE | [facility] | + + + + | 2020-07-06 00:00 | predniSONE | [facility] | + + + + | 2020-07-06 00:00 | predniSONE | [facility] | + + + + | 2020-07-06 00:00 | predniSONE | [facility] | + + + + | 2020-07-06 00:00 | predniSONE | [facility] | + + + + | 2020-07-06 00:00 | predniSONE | [facility] | + + + + | 2020-07-06 00:00 | predniSONE | [facility] | + + + + | 2020-07-06 00:00 | predniSONE | [facility] | + + + + | 2022-11-09 00:00 | AMOXICILLIN/POTASSIUM CLAV | [facility] | | | | | + + + + | 2022-01-14 00:00 | DULOXETINE HCL | [facility] | + + + + | 2022-01-26 00:00 | DULOXETINE HCL | [facility] | + + + + | 2022-02-04 00:00 | DULOXETINE HCL | [facility] | + + + + | 2022-02-28 00:00 | DULOXETINE HCL | [facility] | + + + + | 2022-03-04 00:00 | DULOXETINE HCL | [facility] | + + + + | 2022-03-07 00:00 | DULOXETINE HCL | [facility] | + + + + | 2022-03-31 00:00 | DULOXETINE HCL | [facility] | + + + + | 2022-04-02 00:00 | DULOXETINE HCL | [facility] | + + + + | 2022-04-13 00:00 | DULOXETINE HCL | [facility] | + + + + | 2022-04-29 00:00 | DULOXETINE HCL | [facility] | + + + + | 2022-05-13 00:00 | DULOXETINE HCL | [facility] | + + + + | 2022-05-13 00:00 | DULOXETINE HCL | [facility] | + + + + | 2022-06-04 00:00 | DULOXETINE HCL | [facility] | + + + + | 2022-06-06 00:00 | DULOXETINE HCL | [facility] | + + + + | 2022-06-28 00:00 | DULOXETINE HCL | [facility] | + + + + | 2022-07-25 00:00 | DULOXETINE HCL | [facility] | + + + + | 2022-07-31 00:00 | DULOXETINE HCL | [facility] | + + + + | 2022-08-01 00:00 | DULOXETINE HCL | [facility] | + + + + | 2022-08-19 00:00 | DULOXETINE HCL | [facility] | + + + + | 2022-09-01 00:00 | DULOXETINE HCL | [facility] | + + + + | 2022-09-15 00:00 | DULOXETINE HCL | [facility] | + + + + | 2022-09-16 00:00 | DULOXETINE HCL | [facility] | + + + + | 2022-09-20 00:00 | DULOXETINE HCL | [facility] | + + + + | 2022-10-02 00:00 | DULOXETINE HCL | [facility] | + + + + | 2022-11-09 00:00 | DULOXETINE HCL | [facility] | + + + + | 2022-11-13 00:00 | DULOXETINE HCL | [facility] | + + + + | 2022-11-22 00:00 | DULOXETINE HCL | [facility] | + + + + | 2022-11-24 00:00 | DULOXETINE HCL | [facility] | + + + + | 2023-01-04 00:00 | DULOXETINE HCL | [facility] | + + + + | 2023-01-07 00:00 | DULOXETINE HCL | [facility] | + + + + | 2023-01-17 00:00 | DULOXETINE HCL | [facility] | + + + + | 2022-05-13 00:00 | DULOXETINE HCL | [facility] | + + + + | 2022-05-13 00:00 | DULOXETINE HCL | [facility] | + + + + | 2022-06-04 00:00 | DULOXETINE HCL | [facility] | + + + + | 2022-06-06 00:00 | DULOXETINE HCL | [facility] | + + + + | 2022-06-28 00:00 | DULOXETINE HCL | [facility] | + + + + | 2022-07-25 00:00 | DULOXETINE HCL | [facility] | + + + + | 2022-07-31 00:00 | DULOXETINE HCL | [facility] | + + + + | 2022-08-01 00:00 | DULOXETINE HCL | [facility] | + + + + | 2022-09-20 00:00 | CLINDAMYCIN HCL | [facility] | + + + + | 2022-10-02 00:00 | CLINDAMYCIN HCL | [facility] | + + + + | 2022-11-09 00:00 | CLINDAMYCIN HCL | [facility] | + + + + | 2022-09-20 00:00 | Cholecalciferol (Vitamin | [facility] | | | D3) | | + + + + | 2022-10-02 00:00 | Cholecalciferol (Vitamin | [facility] | | | D3) | | + + + + | 2022-11-09 00:00 | Cholecalciferol (Vitamin | [facility] | | | D3) | | + + + + | 2022-11-13 00:00 | Cholecalciferol (Vitamin | [facility] | | | D3) | | + + + + | 2022-11-22 00:00 | Cholecalciferol (Vitamin | [facility] | | | D3) | | + + + + | 2022-11-24 00:00 | Cholecalciferol (Vitamin | [facility] | | | D3) | | + + + + | 2023-01-04 00:00 | Cholecalciferol (Vitamin | [facility] | | | D3) | | + + + + | 2023-01-07 00:00 | Cholecalciferol (Vitamin | [facility] | | | D3) | | + + + + | 2023-01-17 00:00 | Cholecalciferol (Vitamin | [facility] | | | D3) | | + + + + | 2020-07-13 00:00 | AMOXICILLIN/POTASSIUM CLAV | [facility] | | | | | + + + + | 2020-07-13 00:00 | AMOXICILLIN/POTASSIUM CLAV | [facility] | | | | | + + + + | 2020-07-13 00:00 | AMOXICILLIN/POTASSIUM CLAV | [facility] | | | | | + + + + | 2020-07-13 00:00 | AMOXICILLIN/POTASSIUM CLAV | [facility] | | | | | + + + + | 2020-07-13 00:00 | AMOXICILLIN/POTASSIUM CLAV | [facility] | | | | | + + + + | 2020-07-13 00:00 | AMOXICILLIN/POTASSIUM CLAV | [facility] [facility] | | | | | + + + + | 2020-07-13 00:00 | AMOXICILLIN/POTASSIUM CLAV | [facility] | | | | | + + + + | 2020-07-13 00:00 | AMOXICILLIN/POTASSIUM CLAV | [facility] | | | | | + + + + | 2020-07-13 00:00 | AMOXICILLIN/POTASSIUM CLAV | [facility] | | | | | + + + + | 2020-10-15 00:00 | CYCLOBENZAPRINE HCL | [facility] | + + + + | 2020-10-15 00:00 | CYCLOBENZAPRINE HCL | [facility] | + + + + | 2020-10-15 00:00 | CYCLOBENZAPRINE HCL | [facility] | + + + + | 2020-10-15 00:00 | CYCLOBENZAPRINE HCL | [facility] | + + + + | 2020-10-15 00:00 | CYCLOBENZAPRINE HCL | [facility] | + + + + | 2020-10-15 00:00 | CYCLOBENZAPRINE HCL | [facility] | + + + + | 2020-10-15 00:00 | CYCLOBENZAPRINE HCL | [facility] | + + + + | 2020-10-15 00:00 | CYCLOBENZAPRINE HCL | [facility] | + + + + | 2020-10-15 00:00 | CYCLOBENZAPRINE HCL | [facility] | + + + + | 2020-07-13 00:00 | TRAMADOL HCL | [facility] | + + + + | 2020-07-13 00:00 | TRAMADOL HCL | [facility] | + + + + | 2020-07-13 00:00 | TRAMADOL HCL | [facility] | + + + + | 2020-07-13 00:00 | TRAMADOL HCL | [facility] | + + + + | 2020-07-13 00:00 | TRAMADOL HCL | [facility] | + + + + | 2020-07-13 00:00 | TRAMADOL HCL | [facility] | + + + + | 2020-07-13 00:00 | TRAMADOL HCL | [facility] | + + + + | 2020-07-13 00:00 | TRAMADOL HCL | [facility] | + + + + | 2020-07-13 00:00 | TRAMADOL HCL | [facility] | + + + + | 2020-07-08 00:00 | | [facility] | | | SULFAMETHOXAZOLE/TRIMETHOPR | | | | IM DS | | + + + + | 2020-07-08 00:00 | | [facility] | | | SULFAMETHOXAZOLE/TRIMETHOPR | | | | IM DS | | + + + + | 2020-07-08 00:00 | | [facility] | | | SULFAMETHOXAZOLE/TRIMETHOPR | | | | IM DS | | + + + + | 2020-07-08 00:00 | | [facility] | | | SULFAMETHOXAZOLE/TRIMETHOPR | | | | IM DS | | + + + + | 2020-07-08 00:00 | | [facility] | | | SULFAMETHOXAZOLE/TRIMETHOPR | | | | IM DS | | + + + + | 2020-07-08 00:00 | | [facility] | | | SULFAMETHOXAZOLE/TRIMETHOPR | | | | IM DS | | + + + + | 2020-07-08 00:00 | | [facility] | | | SULFAMETHOXAZOLE/TRIMETHOPR | | | | IM DS | | + + + + | 2020-07-08 00:00 | | [facility] | | | SULFAMETHOXAZOLE/TRIMETHOPR | | | | IM DS | | + + + + | 2020-07-08 00:00 | | [facility] | | | SULFAMETHOXAZOLE/TRIMETHOPR | | | | IM DS | | + + + + | 2022-03-07 00:00 | | [facility] | | | SULFAMETHOXAZOLE/TRIMETHOPR | | | | IM DS | | + + + + | 2022-03-07 00:00 | | [facility] | | | SULFAMETHOXAZOLE/TRIMETHOPR | | | | IM DS | | + + + + | 2022-03-07 00:00 | | [facility] | | | SULFAMETHOXAZOLE/TRIMETHOPR | | | | IM DS | | + + + + | 2022-03-07 00:00 | | [facility] | | | SULFAMETHOXAZOLE/TRIMETHOPR | | | | IM DS | | + + + + | 2022-03-07 00:00 | | [facility] | | | SULFAMETHOXAZOLE/TRIMETHOPR | | | | IM DS | | + + + + | 2022-03-07 00:00 | | [facility] | | | SULFAMETHOXAZOLE/TRIMETHOPR | | | | IM DS | | + + + + | 2022-03-07 00:00 | | [facility] | | | SULFAMETHOXAZOLE/TRIMETHOPR | | | | IM DS | | + + + + | 2022-03-07 00:00 | | [facility] | | | SULFAMETHOXAZOLE/TRIMETHOPR | | | | IM DS | | + + + + | 2022-03-07 00:00 | | [facility] | | | SULFAMETHOXAZOLE/TRIMETHOPR | | | | IM DS | | + + + + | 2022-08-01 00:00 | | [facility] | | | SULFAMETHOXAZOLE/TRIMETHOPR | | | | IM DS | | + + + + | 2022-08-01 00:00 | | [facility] | | | SULFAMETHOXAZOLE/TRIMETHOPR | | | | IM DS | | + + + + | 2022-08-01 00:00 | | [facility] | | | SULFAMETHOXAZOLE/TRIMETHOPR | | | | IM DS | | + + + + | 2022-08-01 00:00 | | [facility] | | | SULFAMETHOXAZOLE/TRIMETHOPR | | | | IM DS | | + + + + | 2022-08-01 00:00 | | [facility] | | | SULFAMETHOXAZOLE/TRIMETHOPR | | | | IM DS | | + + + + | 2022-03-04 00:00 | ZOLPIDEM TARTRATE | [facility] | + + + + | 2022-03-07 00:00 | ZOLPIDEM TARTRATE | [facility] | + + + + | 2022-03-31 00:00 | ZOLPIDEM TARTRATE | [facility] | + + + + | 2022-04-02 00:00 | ZOLPIDEM TARTRATE | [facility] | + + + + | 2022-04-13 00:00 | ZOLPIDEM TARTRATE | [facility] | + + + + | 2022-04-29 00:00 | ZOLPIDEM TARTRATE | [facility] | + + + + | 2022-05-13 00:00 | ZOLPIDEM TARTRATE | [facility] | + + + + | 2022-05-13 00:00 | ZOLPIDEM TARTRATE | [facility] | + + + + | 2022-06-04 00:00 | ZOLPIDEM TARTRATE | [facility] | + + + + | 2022-06-06 00:00 | ZOLPIDEM TARTRATE | [facility] | + + + + | 2022-06-28 00:00 | ZOLPIDEM TARTRATE | [facility] | + + + + | 2022-07-25 00:00 | ZOLPIDEM TARTRATE | [facility] | + + + + | 2022-07-31 00:00 | ZOLPIDEM TARTRATE | [facility] | + + + + | 2022-08-01 00:00 | ZOLPIDEM TARTRATE | [facility] | + + + + | 2022-08-19 00:00 | ZOLPIDEM TARTRATE | [facility] | + + + + | 2022-09-01 00:00 | ZOLPIDEM TARTRATE | [facility] | + + + + | 2022-09-15 00:00 | ZOLPIDEM TARTRATE | [facility] | + + + + | 2022-09-16 00:00 | ZOLPIDEM TARTRATE | [facility] | + + + + | 2022-09-20 00:00 | ZOLPIDEM TARTRATE | [facility] | + + + + | 2022-10-02 00:00 | ZOLPIDEM TARTRATE | [facility] | + + + + | 2022-11-09 00:00 | ZOLPIDEM TARTRATE | [facility] | + + + + | 2022-11-13 00:00 | ZOLPIDEM TARTRATE | [facility] | + + + + | 2022-11-22 00:00 | ZOLPIDEM TARTRATE | [facility] | + + + + | 2022-11-24 00:00 | ZOLPIDEM TARTRATE | [facility] | + + + + | 2023-01-04 00:00 | ZOLPIDEM TARTRATE | [facility] | + + + + | 2023-01-07 00:00 | ZOLPIDEM TARTRATE | [facility] | + + + + | 2023-01-17 00:00 | ZOLPIDEM TARTRATE | [facility] | + + + + | 2022-03-04 00:00 | TRAZODONE HCL | [facility] | + + + + | 2022-03-07 00:00 | TRAZODONE HCL | [facility] | + + + + | 2022-03-31 00:00 | TRAZODONE HCL | [facility] | + + + + | 2022-04-02 00:00 | TRAZODONE HCL | [facility] | + + + + | 2022-04-13 00:00 | TRAZODONE HCL | [facility] | + + + + | 2022-04-29 00:00 | TRAZODONE HCL | [facility] | + + + + | 2022-05-13 00:00 | TRAZODONE HCL | [facility] | + + + + | 2022-05-13 00:00 | TRAZODONE HCL | [facility] | + + + + | 2022-06-04 00:00 | TRAZODONE HCL | [facility] | + + + + | 2022-06-06 00:00 | TRAZODONE HCL | [facility] | + + + + 2022-06-28 00:00 | TRAZODONE HCL | [facility] | + + + + | 2022-07-25 00:00 | TRAZODONE HCL | [facility] | + + + + | 2022-07-31 00:00 | TRAZODONE HCL | [facility] | + + + + | 2022-08-01 00:00 | TRAZODONE HCL | [facility] | + + + + | 2022-08-19 00:00 | TRAZODONE HCL | [facility] | + + + + | 2022-09-01 00:00 | TRAZODONE HCL | [facility] | + + + + | 2022-09-15 00:00 | TRAZODONE HCL | [facility] | + + + + | 2022-09-16 00:00 | TRAZODONE HCL | [facility] | + + + + | 2022-09-20 00:00 | TRAZODONE HCL | [facility] | + + + + | 2022-10-02 00:00 | TRAZODONE HCL | [facility] | + + + + | 2022-11-09 00:00 | TRAZODONE HCL | [facility] | + + + + | 2022-11-13 00:00 | TRAZODONE HCL | [facility] | + + + + | 2022-11-22 00:00 | TRAZODONE HCL | [facility] | + + + + | 2022-11-24 00:00 | TRAZODONE HCL | [facility] | + + + + | 2023-01-04 00:00 | TRAZODONE HCL | [facility] | + + + + | 2023-01-07 00:00 | TRAZODONE HCL | [facility] | + + + + | 2023-01-17 00:00 | TRAZODONE HCL | [facility] | + + + + | 2020-07-08 00:00 | HYDROCODONE | [facility] | | | BIT/ACETAMINOPHEN | | + + + + | 2020-07-08 00:00 | HYDROCODONE | [facility] | | | BIT/ACETAMINOPHEN | | + + + + | 2020-07-08 00:00 | HYDROCODONE | [facility] | | | BIT/ACETAMINOPHEN | | + + + + | 2020-07-08 00:00 | HYDROCODONE | [facility] | | | BIT/ACETAMINOPHEN | | + + + + | 2020-07-08 00:00 | HYDROCODONE | [facility] | | | BIT/ACETAMINOPHEN | | + + + + | 2020-07-08 00:00 | HYDROCODONE | [facility] | | | BIT/ACETAMINOPHEN | | + + + + | 2020-07-08 00:00 | [facility] | | | BIT/ACETAMINOPHEN | | + + + + | 2020-07-08 00:00 | [facility]OCODONE | [facility] | | | BIT/ACETAMINOPHEN | | + + + + | 2020-07-08 00:00 | HYDROCODONE | [facility] | | | BIT/ACETAMINOPHEN | | + + + + | 2022-11-22 00:00 | HYDROCODONE | [facility] | | | BIT/ACETAMINOPHEN | | + + + + | 2022-11-22 00:00 | HYDROCODONE | [facility] | | | BIT/ACETAMINOPHEN | | + + + + | 2022-11-22 00:00 | HYDROCODONE | [facility] | | | BIT/ACETAMINOPHEN | | + + + + | 2022-11-22 00:00 | HYDROCODONE | [facility] | | | BIT/ACETAMINOPHEN | | + + + + | 2022-01-14 00:00 | ASENAPINE MALEATE | [facility] | + + + + | 2022-01-26 00:00 | ASENAPINE MALEATE | [facility] | + + + + | 2022-02-04 00:00 | ASENAPINE MALEATE | [facility] | + + + + | 2022-02-28 00:00 | ASENAPINE MALEATE | [facility] | + + + + | 2022-03-04 00:00 | ASENAPINE MALEATE | [facility] | + + + + | 2022-03-07 00:00 | ASENAPINE MALEATE | [facility] | + + + + | 2022-03-31 00:00 | ASENAPINE MALEATE | [facility] | + + + + | 2022-04-02 00:00 | ASENAPINE MALEATE | [facility] | + + + + | 2022-04-13 00:00 | ASENAPINE MALEATE | [facility] | + + + + | 2022-04-29 00:00 | ASENAPINE MALEATE | [facility] | + + + + | 2022-05-13 00:00 | ASENAPINE MALEATE | [facility] | + + + + | 2022-05-13 00:00 | ASENAPINE MALEATE | [facility] | + + + + | 2022-06-04 00:00 | ASENAPINE MALEATE | [facility] | + + + + | 2022-06-06 00:00 | ASENAPINE MALEATE | [facility] | + + + + | 2022-06-28 00:00 | ASENAPINE MALEATE | [facility] | + + + + | 2022-07-25 00:00 | ASENAPINE MALEATE | [facility] | + + + + | 2022-07-31 00:00 | ASENAPINE MALEATE | [facility] | + + + + | 2022-08-01 00:00 | ASENAPINE MALEATE | [facility] | + + + + | 2022-08-19 00:00 | ASENAPINE MALEATE | [facility] | + + + + | 2022-09-01 00:00 | ASENAPINE MALEATE | [facility] | + + + + | 2022-09-15 00:00 | ASENAPINE MALEATE | [facility] | + + + + | 2022-09-16 00:00 | ASENAPINE MALEATE | [facility] | + + + + | 2022-09-20 00:00 | ASENAPINE MALEATE | [facility] | + + + + | 2022-10-02 00:00 | ASENAPINE MALEATE | [facility] | + + + + | 2022-11-09 00:00 | ASENAPINE MALEATE | [facility] | + + + + | 2022-11-13 00:00 | ASENAPINE MALEATE | [facility] | + + + + | 2022-11-22 00:00 | ASENAPINE MALEATE | [facility] | + + + + | 2022-11-24 00:00 | ASENAPINE MALEATE | [facility] | + + + + | 2023-01-04 00:00 | ASENAPINE MALEATE | [facility] | + + + + | 2023-01-07 00:00 | ASENAPINE MALEATE | [facility] | + + + + | 2023-01-17 00:00 | ASENAPINE MALEATE | [facility] | + + + + | 2020-07-06 00:00 | MORPHINE SULFATE | [facility] | + + + + | 2020-07-06 00:00 | MORPHINE SULFATE | [facility] | + + + + | 2020-07-06 00:00 | MORPHINE SULFATE | [facility] | + + + + | 2020-07-06 00:00 | MORPHINE SULFATE | [facility] | + + + + | 2020-07-06 00:00 | MORPHINE SULFATE | [facility] | + + + + | 2020-07-06 00:00 | MORPHINE SULFATE | [facility] | + + + + | 2020-07-06 00:00 | MORPHINE SULFATE | [facility] | + + + + | 2020-07-06 00:00 | MORPHINE SULFATE | [facility] | + + + + | 2020-07-06 00:00 | MORPHINE SULFATE | [facility] | + + + + | 2022-05-13 00:00 | PROMETHAZINE HCL | [facility] | + + + + | 2022-05-13 00:00 | PROMETHAZINE HCL | [facility] | + + + + | 2022-06-04 00:00 | PROMETHAZINE HCL | [facility] | + + + + | 2022-06-06 00:00 | PROMETHAZINE HCL | [facility] | + + + + | 2022-06-28 00:00 | PROMETHAZINE HCL | [facility] | + + + + | 2022-07-25 00:00 | PROMETHAZINE HCL | [facility] | + + + + | 2022-07-31 00:00 | PROMETHAZINE HCL | [facility] | + + + + | 2022-08-01 00:00 | PROMETHAZINE HCL | [facility] | + + + + | 2022-08-19 00:00 | PROMETHAZINE HCL | [facility] | + + + + | 2022-09-01 00:00 | PROMETHAZINE HCL | [facility] | + + + + | 2022-09-15 00:00 | PROMETHAZINE HCL | [facility] | + + + + | 2022-09-16 00:00 | PROMETHAZINE HCL | [facility] | + + + + | 2022-09-20 00:00 | PROMETHAZINE HCL | [facility] | + + + + | 2022-10-02 00:00 | PROMETHAZINE HCL | [facility] | + + + + | 2022-11-09 00:00 | PROMETHAZINE HCL | [facility] | + + + + | 2022-11-13 00:00 | PROMETHAZINE HCL | [facility] | + + + + | 2022-11-22 00:00 | PROMETHAZINE HCL | [facility] | + + + + | 2022-11-24 00:00 | PROMETHAZINE HCL | [facility] | + + + + | 2023-01-04 00:00 | PROMETHAZINE HCL | [facility] | + + + + | 2023-01-07 00:00 | PROMETHAZINE HCL | [facility] | + + + + | 2023-01-17 00:00 | PROMETHAZINE HCL | 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 | | | disorder of lumbar spine | | + + + + | 2020-07-06 00:00 | Sciatica associated with | [facility] | | | disorder of lumbar spine | | + + + + | 2020-07-06 00:00 | Sciatica associated with [facility] | | | disorder of lumbar spine | | + + + + | 2020-07-06 00:00 | Sciatica associated with [facility] | | | disorder of lumbar spine | | + + + + | 2020-07-06 00:00 | Sciatica associated with [facility] | | | disorder of lumbar spine | | + + + + | 2020-07-06 00:00 | Sciatica associated with | [facility] | | | disorder of lumbar spine | | + + + + | 2020-07-20 00:00 | Urinary tract infection | [facility] | + + + + | 2020-07-20 00:00 | Urinary tract infection | [facility] | + + + + | 2020-07-20 00:00 | Urinary tract infection | [facility] | + + + + | 2020-07-20 00:00 | Urinary tract infection | [facility] | + + + + | 2020-07-20 00:00 | Urinary tract infection | [facility] | + + + + | 2020-07-20 00:00 | Urinary tract infection | [facility] | + + + + | 2020-07-20 00:00 | Urinary tract infection | [facility] | + + + + | 2020-07-20 00:00 | Urinary tract infection | [facility] | + + + + | 2020-07-20 00:00 | Urinary tract infection | [facility] | + + + + | 2022-03-31 00:00 | Anxiety | [facility] | + + + + | 2022-03-31 00:00 | Anxiety | [facility] | + + + + | 2022-03-31 00:00 | Anxiety | [facility] | + + + + | 2022-03-31 00:00 | Anxiety | [facility] | + + + + | 2022-03-31 00:00 | Anxiety | [facility] | + + + + | 2022-03-31 00:00 | Anxiety | [facility] | + + + + | 2022-03-31 00:00 | Anxiety | [facility] | + + + + | 2022-03-31 00:00 | Anxiety | [facility] | + + + + | 2022-03-31 00:00 | Anxiety | [facility] | + + + + | 2022-03-31 00:00 | Grief | [facility] | + + + + | 2022-03-31 00:00 | Grief | [facility] | + + + + | 2022-03-31 00:00 | Grief | [facility] | + + + + | 2022-03-31 00:00 | Grief | [facility] | + + + + | 2022-03-31 00:00 | Grief | [facility] | + + + + | 2022-03-31 00:00 | Grief | [facility] | + + + + | 2022-03-31 00:00 | Grief | [facility] | + + + + | 2022-03-31 00:00 | Grief | [facility] | + + + + | 2022-03-31 00:00 | Grief | [facility] | + + + + | 2022-03-31 00:00 | Chest pain | [facility] | + + + + | 2022-03-31 00:00 | Chest pain | [facility] | + + + + | 2022-03-31 00:00 | Chest pain | [facility] | + + + + | 2022-03-31 00:00 | Chest pain | [facility] | + + + + | 2022-03-31 00:00 | Chest pain | [facility] | + + + + | 2022-03-31 00:00 | Chest pain | [facility] | + + + + | 2022-03-31 00:00 | Chest pain | [facility] | + + + + | 2022-03-31 00:00 | Chest pain | [facility] | + + + + | 2022-03-31 00:00 | Chest pain | [facility] | + + + + | 2022-04-02 00:00 | Chronic pain syndrome | [facility] | + + + + | 2022-04-02 00:00 | Chronic pain syndrome | [facility] | + + + + | 2022-04-02 00:00 | Chronic pain syndrome | [facility] | + + + + | 2022-04-02 00:00 | Chronic pain syndrome | [facility] | + + + + | 2022-04-02 00:00 | Chronic pain syndrome | [facility] | + + + + | 2022-04-02 00:00 | Chronic pain syndrome | [facility] | + + + + | 2022-04-02 00:00 | Chronic pain syndrome | [facility] | + + + + | 2022-04-02 00:00 | Chronic pain syndrome | [facility] | + + + + | 2022-04-02 00:00 | Chronic pain syndrome | [facility] | + + + + | 2022-04-02 00:00 | Atypical chest pain | [facility] | + + + + | 2022-04-02 00:00 | Atypical chest pain | [facility] | + + + + | 2022-04-02 00:00 | Atypical chest pain | [facility] | + + + + | 2022-04-02 00:00 | Atypical chest pain | [facility] | + + + + | 2022-04-02 00:00 | Atypical chest pain | [facility] | + + + + | 2022-04-02 00:00 | Atypical chest pain | [facility] | + + + + | 2022-04-02 00:00 | Atypical chest pain | [facility] | + + + + | 2022-04-02 00:00 | Atypical chest pain | [facility] | + + + + | 2022-04-02 00:00 | Atypical chest pain | [facility] | + + + + | 2022-04-29 00:00 | Left lower quadrant | [facility] | | | abdominal pain | | + + + + | 2022-04-29 00:00 | Left lower quadrant | [facility] | | | abdominal pain | | + + + + | 2022-04-29 00:00 | Left lower quadrant | [facility] | | | abdominal pain | | + + + + | 2022-04-29 00:00 | Left lower quadrant | [facility] | | | abdominal pain | | + + + + | 2022-04-29 00:00 | Left lower quadrant | [facility] | | | abdominal pain | | + + + + | 2022-04-29 00:00 | Left lower quadrant | [facility] | | | abdominal pain | | + + + + | 2022-04-29 00:00 | Left lower quadrant | [facility] | | | abdominal pain | | + + + + | 2022-04-29 00:00 | Left lower quadrant | [facility] | | | abdominal pain | | + + + + | 2022-04-29 00:00 | Nausea and vomiting | [facility] | + + + + | 2022-04-29 00:00 | Nausea and vomiting | [facility] | + + + + | 2022-04-29 00:00 | Nausea and vomiting | [facility] | + + + + | 2022-04-29 00:00 | Nausea and vomiting | [facility] | + + + + | 2022-04-29 00:00 | Nausea and vomiting | [facility] | + + + + | 2022-04-29 00:00 | Nausea and vomiting | [facility] | + + + + | 2022-04-29 00:00 | Nausea and vomiting | [facility] | + + + + | 2022-04-29 00:00 | Nausea and vomiting | [facility] | + + + + | 2022-04-29 00:00 | Lung nodule | [facility] | + + + + | 2022-04-29 00:00 | Lung nodule | [facility] | + + + + | 2022-04-29 00:00 | Lung nodule | [facility] | + + + + | 2022-04-29 00:00 | Lung nodule | [facility] | + + + + | 2022-04-29 00:00 | Lung nodule | [facility] | + + + + | 2022-04-29 00:00 | Lung nodule | [facility] | + + + + | 2022-04-29 00:00 | Lung nodule | [facility] | + + + + | 2022-04-29 00:00 | Lung nodule | [facility] | + + + + | 2022-05-12 00:00 | Upper respiratory tract | [facility] | | | infection | | + + + + | 2022-05-12 00:00 | Upper respiratory tract | [facility] | | | infection | | + + + + | 2022-05-12 00:00 | Upper respiratory tract | [facility] | | | infection | | + + + + | 2022-05-12 00:00 | Upper respiratory tract | [facility] | | | infection | | + + + + | 2022-05-12 00:00 | Upper respiratory tract | [facility] | | | infection | | + + + + | 2022-05-12 00:00 | Upper respiratory tract | [facility] | | | infection | | + + + + | 2022-05-12 00:00 | Upper respiratory tract | [facility] | | | infection | | + + + + | 2022-05-12 00:00 | Upper respiratory tract | [facility] | | | infection | | + + + + | 2022-06-04 00:00 | Neck sprain | [facility] | + + + + | 2022-06-04 00:00 | Neck sprain | [facility] | + + + + | 2022-06-04 00:00 | Neck sprain | [facility] | + + + + | 2022-06-04 00:00 | Neck sprain | [facility] | + + + + | 2022-06-04 00:00 | Neck sprain | [facility] | + + + + | 2022-06-04 00:00 | Neck sprain | [facility] | + + + + | 2022-06-04 00:00 | Neck sprain | [facility] | + + + + | [...] + | 2022-06-06 00:00 | Concussion | [facility] | + + + + | 2022-06-06 00:00 | Concussion | [facility] | + + + + | 2022-06-06 00:00 | Concussion | [facility] | + + + + | 2022-06-06 00:00 | Concussion | [facility] | + + + + | 2022-06-06 00:00 | Concussion | [facility] | + + + + | 2022-06-06 00:00 | Concussion | [facility] | + + + + | 2022-06-06 00:00 | Concussion | [facility] | + + + + | 2022-06-06 00:00 | Injury of head | [facility] | + + + + | 2022-06-06 00:00 | Injury of head | [facility] | + + + + | 2022-06-06 00:00 | Injury of head | [facility] | + + + + | 2022-06-06 00:00 | Injury of head | [facility] | + + + + | 2022-06-06 00:00 | Injury of head | [facility] | + + + + | 2022-06-06 00:00 | Injury of head | [facility] | + + + + | 2022-06-06 00:00 | Injury of head | [facility] | + + + + | [...] + + | 2022-06-06 13:10 | OTHER DIRECTOR BUSINESS INTELLIGENCE (CURRENT) | [facility] | | | DRUG [...] | 2022-06-25 00:00 | Abdominal pain | [facility] | + + + + | 2022-06-25 00:00 | Abdominal pain | [facility] | + + + + | 2022-06-25 00:00 | Abdominal pain | [facility] | + + + + | 2022-06-25 00:00 | Abdominal pain | [facility] | + + + + | 2022-06-25 00:00 | Abdominal pain | [facility] | + + + + | 2022-06-25 00:00 | Abdominal pain | [facility] | + + + + | 2022-06-25 00:00 | Abdominal pain | [facility] | + + + + | [...] + + | 2022-06-25 12:18 | OTHER SENIOR LIVING (CURRENT) | [facility] | | | DRUG [...] + + | 2022-07-25 10:43 | OTHER SENIOR LIVING (CURRENT) | [facility] | | | DRUG [...] 00:00 | Patient left without being | [facility] | | | seen | | + + + + | 2022-07-31 00:00 | Patient left without being | [facility] | | | seen | | + + + + | 2022-07-31 00:00 | Patient left without being | [facility] | | | seen | | + + + + | 2022-07-31 00:00 | Patient left without being | [facility] | | | seen | | + + + + | 2022-07-31 00:00 | Patient left without being | [facility] | | | seen | | + + + + | 2022-07-31 00:00 | Patient left without being | [facility] | | | seen | | [...] + + | 2022-08-01 08:08 | OTHER DIRECTOR BUSINESS INTELLIGENCE (CURRENT) | [facility] | | | DRUG [...] + + | 2022-08-19 14:20 | OTHER SENIOR LIVING (CURRENT) | [facility] | | | DRUG [...] 2022-09-01 00:00 | Chronic abdominal pain | [facility] | + + + + | 2022-09-01 00:00 | Chronic abdominal pain | [facility] | + + + + | 2022-09-01 00:00 | Chronic abdominal pain | [facility] | + + + + | 2022-09-01 00:00 | Chronic abdominal pain | [facility] | + + + + | 2022-09-01 00:00 | Chronic abdominal pain | [facility] | + + + + | 2022-09-01 00:00 | Headache | [facility] | + + + + | 2022-09-01 00:00 | [facility] | [facility] | + + + + | 2022-09-01 00:00 | Headache | [facility] | + + + + | 2022-09-01 00:00 | Headache | [facility] | + + + + | 2022-09-01 00:00 | Headache | [facility] | + + + + | [...] + + | 2022-09-01 14:12 | OTHER DIRECTOR BUSINESS INTELLIGENCE (CURRENT) | [facility] | | | DRUG [...] + + | 2022-09-15 08:51 | OTHER DIRECTOR BUSINESS INTELLIGENCE (CURRENT) | [facility] | | | DRUG [...] + + | 2022-09-16 11:56 | OTHER SENIOR LIVING (CURRENT) | [facility] | | | DRUG [...] + + | 2022-09-20 08:30 | OTHER SENIOR LIVING (CURRENT) | [facility] | | | DRUG [...] + + | 2022-10-02 17:30 | OTHER DIRECTOR BUSINESS INTELLIGENCE (CURRENT) | [facility] | | | DRUG [...] + + | 2022-11-13 13:19 | OTHER SENIOR LIVING (CURRENT) | [facility] | | | DRUG [...] | 2022-11-22 00:00 | Pyelonephritis | [facility] | + + + + | 2022-11-22 00:00 | Pyelonephritis | [facility] | + + + + | 2022-11-22 00:00 | Pyelonephritis | [facility] | + + + + | 2022-11-22 00:00 | Pyelonephritis | [facility] | + + + + | [...] + + | 2022-11-22 11:47 | OTHER SENIOR LIVING (CURRENT) | [facility] | | | DRUG [...] | 2022-11-24 00:00 | Flank pain | [facility] | + + + + | 2022-11-24 00:00 | Flank pain | [facility] | + + + + | 2022-11-24 00:00 | Flank pain | [facility] | + + + + | [...] 00:00 | Traumatic injury of head | [facility] | + + + + | 2023-01-07 00:00 | Strain of neck muscle | [facility] | + + + + | [...] + + | 2023-01-07 15:00 | OTHER SENIOR LIVING (CURRENT) | [facility] | | | DRUG [...] | 2023-01-17 00:00 | Acute bronchitis | [facility] | + + + + | [...] + + | 2023-01-17 09:21 | OTHER SENIOR LIVING (CURRENT) | [facility] | | | DRUG [...] AA HRN 1ST < 3 | [facility] | | | NCR/STRN | | + [...] (missing) | | (unavailable | 11:34 | Ekvin | | | | | ) | [...] (missing) | | (unavailable | 09:49:08 | Keivn | | | | | [...] (missing) | | (unavailable | 14:14:08 | eKvin | | | | | ) | [...] (missing) | | (unavailable | 11:42:08 | Kvein | | | | | [...] (missing) | | (unavailable | 09:08:08 | Kevni | | | | | [...] (missing) | | (unavailable | 15:30:07 | eKvin | | | | | ) | [...] (missing) | | (unavailable | 16:30:07 | eKvin | | | | | ) | [...] (missing) | | (unavailable | 18:18:07 | Ekvin | | | | | ) | [...]
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
[2023-02-02 11:06] LABS: BILIRUBIN, URINE NEGATIVE (negative); BLOOD/HGB, URINE TRACE-I (Negative); KETONE, URINE NEGATIVE (Negative); LEUK ESTERASE, URINE NEGATIVE (negative); NITRITE, URINE POSITIVE (negative)
[2023-02-02] MEDS ORDERED: DOXYCYCLINE HY100 MG PO (11:09)
[2023-02-02 11:16] LABS: BACTERIA, URINE 4+ /hpf (negative); CASTS, URINE NONE SEEN \\lpf; CRYSTALS, URINE NONE SEEN (0-1+); EPITHELIAL CELLS, URINE SQUAMOUS 1+ /lpf (0-1+)
[2023-02-02 11:17] LABS: COLLECTION TYPE, URINE CATH; REFLEX CULTURE, URINE Yes (No)
[2023-02-02] MEDS ORDERED: ONDANSETRON ODT8 MG PO (11:55)
[2023-02-02 12:00] VITALS: BP 153/81
== END 2023-02-02 12:00 | disposition home or self-care (01) ==
LOC: ED 10:12
PROVIDERS: Emergency Medicine
DX: N39.0 Urinary tract infection, site not specified (principal); F31.9 Bipolar disorder, unspecified; F25.9 Schizoaffective disorder, unspecified; F17.200 Nicotine dependence, unspecified, uncomplicated; Z90.5 Acquired absence of kidney; Z88.0 Allergy status to penicillin; Z88.5 Allergy status to narcotic agent; Z88.1 Allergy status to other antibiotic agents; Z88.8 Allergy status to other drugs, medicaments and biological substances; Z79.899 Other long term (current) drug therapy
CPT/HCPCS: 51701; 81001; 87088; 99284-25; A9270

== ENCOUNTER 2023-02-05 16:56 | Emergency (ER) | payer OTHER ==
[~2023-02-05] VITALS: Ht 162.6 cm; Wt 120.2 kg
--- OUTSIDE RECORDS SUMMARY | ~2023-02-05 | XMS | Continuity of Care Document ---
Demographics + + + | Address | [address] [address] | | | [place] [address] | + + + | Preferred Language | Unknown | + + + | Marital Status | | + + + | Mandaen Affiliation | Unknown | + + + | Race | White | + + + | Ethnic Group | Not or | + + + Author + + + | Author | [facility] | + + + | Organization | [facility] | + + + | Address | [address] [facility] | | | [place] [address] | + + + | Phone | | + + + Care Team Providers + + + + | Care Adjunct Psychology Instructor Name | Role | Phone | [...] | (no severity) | | | | [facility] | [facility] [...] + + + | (no date) | clavulanic | [facility] | (no reaction) | (no severity) | | | acid | | | | + + + + + + | (no date) | nitrofurantoin | [facility] | (no reaction) | (no severity) | | | | | | | + + + + + + | (no date) | amoxicillin | [facility] | (no reaction) | (no [...] | 2022-01-14 00:00 | LURASIDONE HCL | [facility] | + + + + | 2022-01-26 00:00 | LURASIDONE HCL | [facility] | + + + + | 2022-02-04 00:00 | LURASIDONE HCL | [facility] | + + + + | 2022-02-28 00:00 | LURASIDONE HCL | [facility] | + + + + | 2022-03-04 00:00 | LURASIDONE HCL | [facility] | + + + + | 2022-03-07 00:00 | LURASIDONE HCL | [facility] | + + + + | 2022-03-31 00:00 | LURASIDONE HCL | [facility] | + + + + | 2022-04-02 00:00 | LURASIDONE HCL | [facility] | + + + + | 2022-04-13 00:00 | LURASIDONE HCL | [facility] | + + + + | 2022-04-29 00:00 | LURASIDONE HCL | [facility] | + + + + | 2022-05-13 00:00 | LURASIDONE HCL | [facility] | + + + + | 2022-05-13 00:00 | LURASIDONE HCL | [facility] | + + + + | 2022-06-04 00:00 | LURASIDONE HCL | [facility] | + + + + | 2022-06-06 00:00 | LURASIDONE HCL | [facility] | + + + + | 2022-06-28 00:00 | LURASIDONE HCL | [facility] | + + + + | 2022-07-25 00:00 | LURASIDONE HCL | [facility] | + + + + | 2022-07-31 00:00 | LURASIDONE HCL | [facility] | + + + + | 2022-08-01 00:00 | LURASIDONE HCL | [facility] | + + + + | 2022-08-19 00:00 | LURASIDONE HCL | [facility] | + + + + | 2022-09-01 00:00 | LURASIDONE HCL | [facility] | + + + + 2022-09-15 00:00 | LURASIDONE HCL | [facility] | + + + + | 2022-09-16 00:00 | LURASIDONE HCL | [facility] | + + + + | 2022-09-20 00:00 | LURASIDONE HCL | [facility] | + + + + | 2022-10-02 00:00 | LURASIDONE HCL | [facility] | + + + + | 2022-11-09 00:00 | LURASIDONE HCL | [facility] | + + + + | 2022-11-13 00:00 | LURASIDONE HCL | [facility] | + + + + | 2022-11-22 00:00 | LURASIDONE HCL | [facility] | + + + + | 2022-11-24 00:00 | LURASIDONE HCL | [facility] | + + + + | 2023-01-04 00:00 | LURASIDONE HCL | [facility] | + + + + | 2023-01-07 00:00 | LURASIDONE HCL | [facility] | + + + + | 2023-01-17 00:00 | LURASIDONE HCL | [facility] | + + + + | 2023-02-02 00:00 | LURASIDONE HCL | [facility] | + + + + | 2022-03-31 00:00 | LORAZEPAM | [facility] | + + + + | 2022-03-31 00:00 | LORAZEPAM | [facility] | + + + + | 2022-11-22 00:00 | ONDANSETRON | [facility] | + + + + | 2022-11-22 00:00 | ONDANSETRON | [facility] | + + + + | 2022-11-22 00:00 | ONDANSETRON | [facility] | + + + + | 2022-11-22 00:00 | ONDANSETRON | [facility] | + + + + | 2022-03-04 00:00 | OXYCODONE | [facility] | | | HCL/ACETAMINOPHEN | | + + + + | 2022-03-07 00:00 | OXYCODONE | [facility] | | | HCL/ACETAMINOPHEN | | + + + + | 2022-03-31 00:00 | OXYCODONE | [facility] | | | HCL/ACETAMINOPHEN | | + + + + | 2022-04-02 00:00 | OXYCODONE | [facility] | | | HCL/ACETAMINOPHEN | | + + + + | 2022-04-13 00:00 | OXYCODONE | [facility] | | | HCL/ACETAMINOPHEN | | + + + + | 2022-04-29 00:00 | OXYCODONE | [facility] | | | HCL/ACETAMINOPHEN | | + + + + | 2022-05-13 00:00 | OXYCODONE | [facility] | | | HCL/ACETAMINOPHEN | | + + + + | 2022-05-13 00:00 | OXYCODONE | [facility] | | | HCL/ACETAMINOPHEN | | + + + + | 2022-06-04 00:00 | OXYCODONE | [facility] | | | HCL/ACETAMINOPHEN | | + + + + | 2022-06-06 00:00 | OXYCODONE | [facility] | | | HCL/ACETAMINOPHEN | | + + + + | 2022-06-28 00:00 | OXYCODONE | [facility] | | | HCL/ACETAMINOPHEN | | + + + + | 2022-07-25 00:00 | OXYCODONE | [facility] | | | HCL/ACETAMINOPHEN | | + + + + | 2022-07-31 00:00 | OXYCODONE | [facility] | | | HCL/ACETAMINOPHEN | | + + + + | 2022-08-01 00:00 | OXYCODONE | [facility] | | | HCL/ACETAMINOPHEN | | + + + + | 2022-08-19 00:00 | OXYCODONE | [facility] | | | HCL/ACETAMINOPHEN | | + + + + | 2022-09-01 00:00 | OXYCODONE | [facility] | | | HCL/ACETAMINOPHEN | | + + + + | 2022-09-15 00:00 | OXYCODONE | [facility] | | | HCL/ACETAMINOPHEN | | + + + + | 2022-09-16 00:00 | OXYCODONE | [facility] | | | HCL/ACETAMINOPHEN | | + + + + | 2022-09-20 00:00 | OXYCODONE | [facility] | | | HCL/ACETAMINOPHEN | | + + + + | 2022-10-02 00:00 | OXYCODONE | [facility] | | | HCL/ACETAMINOPHEN | | + + + + | 2022-11-09 00:00 | OXYCODONE | [facility] | | | HCL/ACETAMINOPHEN | | + + + + | 2020-07-10 00:00 | OXYCODONE HCL | [facility] | + + + + | 2020-07-10 00:00 | OXYCODONE HCL | [facility] | + + + + | 2020-07-10 00:00 | OXYCODONE HCL | [facility] | + + + + | 2020-07-10 00:00 | OXYCODONE HCL | [facility] | + + + + | 2020-07-10 00:00 | OXYCODONE HCL | [facility] | + + + + | 2020-07-10 00:00 | OXYCODONE HCL | [facility] | + + + + | 2020-07-10 00:00 | OXYCODONE HCL | [facility] | + + + + | 2020-07-10 00:00 | OXYCODONE HCL | [facility] | + + + + | 2020-07-10 00:00 | OXYCODONE HCL | [facility] | + + + + | 2022-11-13 00:00 | OXYCODONE | [facility] | | | HCL/ACETAMINOPHEN | | + + + + | 2022-11-13 00:00 | OXYCODONE | [facility] | | | HCL/ACETAMINOPHEN | | + + + + | 2022-11-13 00:00 | OXYCODONE | [facility] | | | HCL/ACETAMINOPHEN | | + + + + | 2022-11-13 00:00 | OXYCODONE | [facility] | | | HCL/ACETAMINOPHEN | | + + + + | 2022-09-20 00:00 | OXYCODONE HCL | [facility] | + + + + | 2022-10-02 00:00 | OXYCODONE HCL | [facility] | + + + + | 2022-11-09 00:00 | OXYCODONE HCL | [facility] | + + + + | 2022-11-13 00:00 | OXYCODONE HCL | [facility] | + + + + | 2022-11-22 00:00 | OXYCODONE HCL | [facility] | + + + + | 2022-11-24 00:00 | OXYCODONE HCL | [facility] | + + + + | 2023-01-04 00:00 | OXYCODONE HCL | [facility] | + + + + | 2023-01-07 00:00 | OXYCODONE HCL | [facility] | + + + + | 2023-01-17 00:00 | OXYCODONE HCL | [facility] | + + + + | 2023-02-02 00:00 | OXYCODONE HCL | [facility] | + + + + | 2022-04-02 00:00 | GABAPENTIN | [facility] | + + + + | 2022-04-02 00:00 | GABAPENTIN | [facility] | + + + + | 2022-04-02 00:00 | GABAPENTIN | [facility] | + + + + | 2022-01-14 00:00 | LAMOTRIGINE | [facility] | + + + + | 2022-01-26 00:00 | LAMOTRIGINE | [facility] | + + + + | 2022-02-04 00:00 | LAMOTRIGINE | [facility] | + + + + | 2022-02-28 00:00 | LAMOTRIGINE | [facility] | + + + + | 2022-03-04 00:00 | LAMOTRIGINE | [facility] | + + + + | 2022-03-07 00:00 | LAMOTRIGINE | [facility] | + + + + | 2022-03-31 00:00 | LAMOTRIGINE | [facility] | + + + + | 2022-04-02 00:00 | LAMOTRIGINE | [facility] | + + + + | 2022-04-13 00:00 | LAMOTRIGINE | [facility] | + + + + | 2022-04-29 00:00 | LAMOTRIGINE | [facility] | + + + + | 2022-05-13 00:00 | LAMOTRIGINE | [facility] | + + + + | 2022-05-13 00:00 | LAMOTRIGINE | [facility] | + + + + | 2022-06-04 00:00 | LAMOTRIGINE | [facility] | + + + + | 2022-06-06 00:00 | LAMOTRIGINE | [facility] | + + + + | 2022-06-28 00:00 | LAMOTRIGINE | [facility] | + + + + | 2022-07-25 00:00 | LAMOTRIGINE | [facility] | + + + + | 2022-07-31 00:00 | LAMOTRIGINE | [facility] | + + + + | 2022-08-01 00:00 | LAMOTRIGINE | [facility] | + + + + | 2022-08-19 00:00 | LAMOTRIGINE | [facility] | + + + + | 2022-09-01 00:00 | LAMOTRIGINE | [facility] | + + + + | 2022-09-15 00:00 | LAMOTRIGINE | [facility] | + + + + | 2022-09-16 00:00 | LAMOTRIGINE | [facility] | + + + + | 2022-09-20 00:00 | LAMOTRIGINE | [facility] | + + + + | 2022-10-02 00:00 | LAMOTRIGINE | [facility] | + + + + | 2022-11-09 00:00 | LAMOTRIGINE | [facility] | + + + + | 2022-11-13 00:00 | LAMOTRIGINE | [facility] | + + + + | 2022-11-22 00:00 | LAMOTRIGINE | [facility] | + + + + | 2022-11-24 00:00 | LAMOTRIGINE | [facility] | + + + + | 2023-01-04 00:00 | LAMOTRIGINE | [facility] | + + + + | 2023-01-07 00:00 | LAMOTRIGINE | [facility] | + + + + | 2023-01-17 00:00 | LAMOTRIGINE | [facility] | + + + + | 2023-02-02 00:00 | LAMOTRIGINE | [facility] | + + + + | 2022-05-13 00:00 | METHYLPHENIDATE HCL | [facility] | + + + + | 2022-05-13 00:00 | METHYLPHENIDATE HCL | [facility] | + + + + | 2022-06-04 00:00 | METHYLPHENIDATE HCL | [facility] | + + + + | 2022-06-06 00:00 | METHYLPHENIDATE HCL | [facility] | + + + + | 2022-06-28 00:00 | METHYLPHENIDATE HCL | [facility] | + + + + | 2022-07-25 00:00 | METHYLPHENIDATE HCL | [facility] | + + + + | 2022-07-31 00:00 | METHYLPHENIDATE HCL | [facility] | + + + + | 2022-08-01 00:00 | METHYLPHENIDATE HCL | [facility] | + + + + | 2022-08-19 00:00 | METHYLPHENIDATE HCL | [facility] | + + + + | 2022-09-01 00:00 | METHYLPHENIDATE HCL | [facility] | + + + + | 2022-09-15 00:00 | METHYLPHENIDATE HCL | [facility] | + + + + | 2022-09-16 00:00 | METHYLPHENIDATE HCL | [facility] | + + + + | 2022-09-20 00:00 | METHYLPHENIDATE HCL | [facility] | + + + + | 2022-10-02 00:00 | METHYLPHENIDATE HCL | [facility] | + + + + | 2022-11-09 00:00 | METHYLPHENIDATE HCL | [facility] | + + + + | 2022-11-13 00:00 | METHYLPHENIDATE HCL | [facility] | + + + + | 2022-11-22 00:00 | METHYLPHENIDATE HCL | [facility] | + + + + | 2022-11-24 00:00 | METHYLPHENIDATE HCL | [facility] | + + + + | 2023-01-04 00:00 | METHYLPHENIDATE HCL | [facility] | + + + + | 2023-01-07 00:00 | METHYLPHENIDATE HCL | [facility] | + + + + | 2023-01-17 00:00 | METHYLPHENIDATE HCL | [facility] | + + + + | 2023-02-02 00:00 | METHYLPHENIDATE HCL | [facility] | + + + + | 2022-01-14 00:00 | METHYLPHENIDATE HCL | [facility] | + + + + | 2022-01-26 00:00 | METHYLPHENIDATE HCL | [facility] | + + + + | 2022-02-04 00:00 | METHYLPHENIDATE HCL | [facility] | + + + + | 2022-02-28 00:00 | METHYLPHENIDATE HCL | [facility] | + + + + | 2022-03-04 00:00 | METHYLPHENIDATE HCL | [facility] | + + + + | 2022-03-07 00:00 | METHYLPHENIDATE HCL | [facility] | + + + + | 2022-03-31 00:00 | METHYLPHENIDATE HCL | [facility] | + + + + | 2022-04-02 00:00 | METHYLPHENIDATE HCL | [facility] | + + + + | 2022-04-13 00:00 | METHYLPHENIDATE HCL | [facility] | + + + + | 2022-04-29 00:00 | METHYLPHENIDATE HCL | [facility] | + + + + | 2022-05-13 00:00 | METHYLPHENIDATE HCL | [facility] | + + + + | 2022-05-13 00:00 | METHYLPHENIDATE HCL | [facility] | + + + + | 2022-06-04 00:00 | METHYLPHENIDATE HCL | [facility] | + + + + | 2022-06-06 00:00 | METHYLPHENIDATE HCL | [facility] | + + + + | 2022-06-28 00:00 | METHYLPHENIDATE HCL | [facility] | + + + + | 2022-07-25 00:00 | METHYLPHENIDATE HCL | [facility] | + + + + | 2022-07-31 00:00 | METHYLPHENIDATE HCL | [facility] | + + + + | 2022-08-01 00:00 | METHYLPHENIDATE HCL | [facility] | + + + + | 2022-08-19 00:00 | METHYLPHENIDATE HCL | [facility] | + + + + | 2022-09-01 00:00 | METHYLPHENIDATE HCL | [facility] | + + + + | 2022-09-15 00:00 | METHYLPHENIDATE HCL | [facility] | + + + + | 2022-09-16 00:00 | METHYLPHENIDATE HCL | [facility] | + + + + | 2022-09-20 00:00 | METHYLPHENIDATE HCL | [facility] | + + + + | 2022-10-02 00:00 | METHYLPHENIDATE HCL | [facility] | + + + + | 2022-11-09 00:00 | METHYLPHENIDATE HCL | [facility] | + + + + | 2022-11-13 00:00 | METHYLPHENIDATE HCL | [facility] | + + + + | 2022-11-22 00:00 | METHYLPHENIDATE HCL | [facility] | + + + + | 2022-11-24 00:00 | METHYLPHENIDATE HCL | [facility] | + + + + | 2023-01-04 00:00 | METHYLPHENIDATE HCL | [facility] | + + + + | 2023-01-07 00:00 | METHYLPHENIDATE HCL | [facility] | + + + + | 2023-01-17 00:00 | METHYLPHENIDATE HCL | [facility] | + + + + | 2023-02-02 00:00 | METHYLPHENIDATE HCL | [facility] | + + + + | 2022-03-07 00:00 | PHENAZOPYRIDINE HCL | [facility] | + + + + | 2022-03-07 00:00 | PHENAZOPYRIDINE HCL | [facility] | + + + + | 2022-03-07 00:00 | PHENAZOPYRIDINE HCL | [facility] | + + + + | 2022-03-07 00:00 | PHENAZOPYRIDINE HCL | [facility] | + + + + | 2022-03-07 00:00 | PHENAZOPYRIDINE HCL | [facility] | + + + + | 2022-03-07 00:00 | PHENAZOPYRIDINE HCL | [facility] | + + + + | 2022-03-07 00:00 | PHENAZOPYRIDINE HCL | [facility] | + + + + | 2022-03-07 00:00 | PHENAZOPYRIDINE HCL | [facility] | + + + + | 2022-03-07 00:00 | PHENAZOPYRIDINE HCL | [facility] | + + + + | 2023-01-17 00:00 | PHENAZOPYRIDINE HCL | [facility] | + + + + | 2023-02-02 00:00 | DOXYCYCLINE HYCLATE | [facility] | + + + + | 2022-04-13 00:00 | clonAZEpam | [facility] | + + + + | 2022-04-29 00:00 | clonAZEpam | [facility] | + + + + | 2022-11-09 00:00 | | [facility] | | | SULFAMETHOXAZOLE/TRIMETHOPR | | | | IM | | + + + + | 2022-09-20 00:00 | ACETAMINOPHEN | [facility] | + + + + | 2022-10-02 00:00 | ACETAMINOPHEN | [facility] | + + + + | 2022-11-09 00:00 | ACETAMINOPHEN | [facility] | + + + + | 2022-11-13 00:00 | ACETAMINOPHEN | [facility] | + + + + | 2022-11-22 00:00 | ACETAMINOPHEN | [facility] | + + + + | 2022-11-24 00:00 | ACETAMINOPHEN | [facility] | + + + + | 2023-01-04 00:00 | ACETAMINOPHEN | [facility] | + + + + | 2023-01-07 00:00 | ACETAMINOPHEN | [facility] | + + + + | 2023-01-17 00:00 | ACETAMINOPHEN | [facility] | + + + + | 2023-02-02 00:00 | ACETAMINOPHEN | [facility] | + + + + | 2022-03-04 00:00 | CIPROFLOXACIN HCL | [facility] | + + + + | 2022-11-13 00:00 | CIPROFLOXACIN HCL | [facility] | + + + + | 2022-11-13 00:00 | CIPROFLOXACIN HCL | [facility] | + + + + | 2022-11-13 00:00 | CIPROFLOXACIN HCL | [facility] | + + + + | 2022-11-13 00:00 | CIPROFLOXACIN HCL | [facility] | + + + + | 2022-06-25 00:00 | METOCLOPRAMIDE HCL | [facility] | + + + + | 2022-07-25 00:00 | | [facility] | | | SULFAMETHOXAZOLE/TRIMETHOPR | | | | IM | | + + + + | 2022-07-25 00:00 | | [facility] | | | SULFAMETHOXAZOLE/TRIMETHOPR | | | | IM | | + + + + | 2022-07-25 00:00 | | [facility] | | | SULFAMETHOXAZOLE/TRIMETHOPR | | | | IM | | + + + + | 2022-07-25 00:00 | | [facility] | | | SULFAMETHOXAZOLE/TRIMETHOPR | | | | IM | | + + + + | 2022-07-25 00:00 | | [facility] | | | SULFAMETHOXAZOLE/TRIMETHOPR | | | | IM | | + + + + | 2022-07-25 00:00 | | [facility] | | | SULFAMETHOXAZOLE/TRIMETHOPR | | | | IM | | + + + + | 2022-06-25 00:00 | PANTOPRAZOLE SODIUM | [facility] | + + + + | 2022-01-14 00:00 | MIRTAZAPINE | [facility] | + + + + | 2022-01-26 00:00 | MIRTAZAPINE | [facility] | + + + + | 2022-02-04 00:00 | MIRTAZAPINE | [facility] | + + + + | 2022-02-28 00:00 | MIRTAZAPINE | [facility] | + + + + | 2022-03-04 00:00 | MIRTAZAPINE | [facility] | + + + + | 2022-03-07 00:00 | MIRTAZAPINE | [facility] | + + + + | 2022-03-31 00:00 | MIRTAZAPINE | [facility] | + + + + | 2022-04-02 00:00 | MIRTAZAPINE | [facility] | + + + + | 2022-04-13 00:00 | MIRTAZAPINE | [facility] | + + + + | 2022-04-29 00:00 | MIRTAZAPINE | [facility] | + + + + | 2022-05-13 00:00 | MIRTAZAPINE | [facility] | + + + + | 2022-05-13 00:00 | MIRTAZAPINE | [facility] | + + + + | 2022-06-04 00:00 | MIRTAZAPINE | [facility] | + + + + 2022-06-06 00:00 | MIRTAZAPINE | [facility] | + + + + | 2022-06-28 00:00 | MIRTAZAPINE | [facility] | + + + + | 2022-07-25 00:00 | MIRTAZAPINE | [facility] | + + + + | 2022-07-31 00:00 | MIRTAZAPINE | [facility] | + + + + | 2022-08-01 00:00 | MIRTAZAPINE | [facility] | + + + + | 2022-08-19 00:00 | MIRTAZAPINE | [facility] | + + + + | 2022-09-01 00:00 | MIRTAZAPINE | [facility] | + + + + | 2022-09-15 00:00 | MIRTAZAPINE | [facility] | + + + + | 2022-09-16 00:00 | MIRTAZAPINE | [facility] | + + + + | 2022-09-20 00:00 | MIRTAZAPINE | [facility] | + + + + | 2022-10-02 00:00 | MIRTAZAPINE | [facility] | + + + + | 2022-11-09 00:00 | MIRTAZAPINE | [facility] | + + + + | 2022-11-13 00:00 | MIRTAZAPINE | [facility] | + + + + | 2022-11-22 00:00 | MIRTAZAPINE | [facility] | + + + + | 2022-11-24 00:00 | MIRTAZAPINE | [facility] | + + + + | 2023-01-04 00:00 | MIRTAZAPINE | [facility] | + + + + | 2023-01-07 00:00 | MIRTAZAPINE | [facility] | + + + + | 2023-01-17 00:00 | MIRTAZAPINE | [facility] | + + + + | 2023-02-02 00:00 | MIRTAZAPINE | [facility] | + + + + | 2020-07-13 00:00 | ONDANSETRON | [facility] | + + + + | 2020-07-13 00:00 | ONDANSETRON | [facility] | + + + + | 2020-07-13 00:00 | ONDANSETRON | [facility] | + + + + | 2020-07-13 00:00 | ONDANSETRON | [facility] | + + + + | 2020-07-13 00:00 | ONDANSETRON | [facility] | + + + + | 2020-07-13 00:00 | ONDANSETRON | [facility] | + + + + | 2020-07-13 00:00 | ONDANSETRON | [facility] | + + + + | 2020-07-13 00:00 | ONDANSETRON | [facility] | + + + + | 2020-07-13 00:00 | ONDANSETRON | [facility] | + + + + | 2022-04-02 00:00 | ONDANSETRON | [facility] | + + + + | 2022-04-02 00:00 | ONDANSETRON | [facility] | + + + + | 2022-04-02 00:00 | ONDANSETRON | [facility] | + + + + | 2022-04-02 00:00 | ONDANSETRON | [facility] | + + + + | 2022-04-02 00:00 | ONDANSETRON | [facility] | + + + + | 2022-04-02 00:00 | ONDANSETRON | [facility] | + + + + | 2022-04-02 00:00 | ONDANSETRON | [facility] | + + + + | 2022-04-02 00:00 | ONDANSETRON | [facility] | + + + + | 2022-04-02 00:00 | ONDANSETRON | [facility] | + + + + | 2022-11-13 00:00 | ONDANSETRON | [facility] | + + + + | 2022-11-13 00:00 | ONDANSETRON | [facility] | + + + + | 2022-11-13 00:00 | ONDANSETRON | [facility] | + + + + | 2022-11-13 00:00 | ONDANSETRON | [facility] | + + + + | 2023-02-02 00:00 | ONDANSETRON | [facility] | + + + + | 2020-07-06 00:00 | predniSONE | [facility] | + + + + | 2020-07-06 00:00 | predniSONE | [facility] | + + + + | 2020-07-06 00:00 | predniSONE | [facility] | + + + + | 2020-07-06 00:00 | predniSONE | [facility] | + + + + | 2020-07-06 00:00 | predniSONE | [facility] | + + + + | 2020-07-06 00:00 | predniSONE | [facility] | + + + + | 2020-07-06 00:00 | predniSONE | [facility] | + + + + | 2020-07-06 00:00 | predniSONE | [facility] | + + + + | 2020-07-06 00:00 | predniSONE | [facility] | + + + + | 2022-11-09 00:00 | AMOXICILLIN/POTASSIUM CLAV | [facility] | | | | | + + + + | 2022-01-14 00:00 | DULOXETINE HCL | [facility] | + + + + | 2022-01-26 00:00 | DULOXETINE HCL | [facility] | + + + + | 2022-02-04 00:00 | DULOXETINE HCL | [facility] | + + + + | 2022-02-28 00:00 | DULOXETINE HCL | [facility] | + + + + | 2022-03-04 00:00 | DULOXETINE HCL | [facility] | + + + + | 2022-03-07 00:00 | DULOXETINE HCL | [facility] | + + + + | 2022-03-31 00:00 | DULOXETINE HCL | [facility] | + + + + | 2022-04-02 00:00 | DULOXETINE HCL | [facility] | + + + + | 2022-04-13 00:00 | DULOXETINE HCL | [facility] | + + + + | 2022-04-29 00:00 | DULOXETINE HCL | [facility] | + + + + | 2022-05-13 00:00 | DULOXETINE HCL | [facility] | + + + + | 2022-05-13 00:00 | DULOXETINE HCL | [facility] | + + + + | 2022-06-04 00:00 | DULOXETINE HCL | [facility] | + + + + | 2022-06-06 00:00 | DULOXETINE HCL | [facility] | + + + + | 2022-06-28 00:00 | DULOXETINE HCL | [facility] | + + + + | 2022-07-25 00:00 | DULOXETINE HCL | [facility] | + + + + | 2022-07-31 00:00 | DULOXETINE HCL | [facility] | + + + + | 2022-08-01 00:00 | DULOXETINE HCL | [facility] | + + + + | 2022-08-19 00:00 | DULOXETINE HCL | [facility] | + + + + | 2022-09-01 00:00 | DULOXETINE HCL | [facility] | + + + + | 2022-09-15 00:00 | DULOXETINE HCL | [facility] | + + + + | 2022-09-16 00:00 | DULOXETINE HCL | [facility] | + + + + | 2022-09-20 00:00 | DULOXETINE HCL | [facility] | + + + + | 2022-10-02 00:00 | DULOXETINE HCL | [facility] | + + + + | 2022-11-09 00:00 | DULOXETINE HCL | [facility] | + + + + | 2022-11-13 00:00 | DULOXETINE HCL | [facility] | + + + + | 2022-11-22 00:00 | DULOXETINE HCL | [facility] | + + + + | 2022-11-24 00:00 | DULOXETINE HCL | [facility] | + + + + | 2023-01-04 00:00 | DULOXETINE HCL | [facility] | + + + + | 2023-01-07 00:00 | DULOXETINE HCL | [facility] | + + + + | 2023-01-17 00:00 | DULOXETINE HCL | [facility] | + + + + | 2023-02-02 00:00 | DULOXETINE HCL | [facility] | + + + + | 2022-05-13 00:00 | DULOXETINE HCL | [facility] | + + + + | 2022-05-13 00:00 | DULOXETINE HCL | [facility] | + + + + | 2022-06-04 00:00 | DULOXETINE HCL | [facility] | + + + + | 2022-06-06 00:00 | DULOXETINE HCL | [facility] | + + + + | 2022-06-28 00:00 | DULOXETINE HCL | [facility] | + + + + | 2022-07-25 00:00 | DULOXETINE HCL | [facility] | + + + + | 2022-07-31 00:00 | DULOXETINE HCL | [facility] | + + + + | 2022-08-01 00:00 | DULOXETINE HCL | [facility] | + + + + | 2022-09-20 00:00 | CLINDAMYCIN HCL | [facility] | + + + + | 2022-10-02 00:00 | CLINDAMYCIN HCL | [facility] | + + + + | 2022-11-09 00:00 | CLINDAMYCIN HCL | [facility] | + + + + | 2022-09-20 00:00 | Cholecalciferol (Vitamin | [facility] | | | D3) | | + + + + | 2022-10-02 00:00 | Cholecalciferol (Vitamin | [facility] | | | D3) | | + + + + | 2022-11-09 00:00 | Cholecalciferol (Vitamin | [facility] | | | D3) | | + + + + | 2022-11-13 00:00 | Cholecalciferol (Vitamin | [facility] | | | D3) | | + + + + | 2022-11-22 00:00 | Cholecalciferol (Vitamin | [facility] | | | D3) | | + + + + | 2022-11-24 00:00 | Cholecalciferol (Vitamin | [facility] | | | D3) | | + + + + | 2023-01-04 00:00 | Cholecalciferol (Vitamin | [facility] | | | D3) | | + + + + | 2023-01-07 00:00 | Cholecalciferol (Vitamin | [facility] | | | D3) | | + + + + | 2023-01-17 00:00 | Cholecalciferol (Vitamin | [facility] | | | D3) | | + + + + | 2023-02-02 00:00 | Cholecalciferol (Vitamin | [facility] | | | D3) | | + + + + | 2020-07-13 00:00 | AMOXICILLIN/POTASSIUM CLAV | [facility] | | | | | + + + + | 2020-07-13 00:00 | AMOXICILLIN/POTASSIUM CLAV | [facility] | | | | | + + + + | 2020-07-13 00:00 | AMOXICILLIN/POTASSIUM CLAV | [facility] | | | | | + + + + | 2020-07-13 00:00 | AMOXICILLIN/POTASSIUM CLAV | [facility] | | | | | + + + + | 2020-07-13 00:00 | AMOXICILLIN/POTASSIUM CLAV | [facility] | | | | | + + + + | 2020-07-13 00:00 | AMOXICILLIN/POTASSIUM CLAV | [facility] | | | | | + + + + | 2020-07-13 00:00 | AMOXICILLIN/POTASSIUM CLAV | [facility] | | | | | + + + + | 2020-07-13 00:00 | AMOXICILLIN/POTASSIUM CLAV | [facility] | | | | | + + + + | 2020-07-13 00:00 | AMOXICILLIN/POTASSIUM CLAV | [facility] | | | | | + + + + | 2020-10-15 00:00 | CYCLOBENZAPRINE HCL | [facility] | + + + + | 2020-10-15 00:00 | CYCLOBENZAPRINE HCL | [facility] | + + + + | 2020-10-15 00:00 | CYCLOBENZAPRINE HCL | [facility] | + + + + | 2020-10-15 00:00 | CYCLOBENZAPRINE HCL | [facility] | + + + + | 2020-10-15 00:00 | CYCLOBENZAPRINE HCL | [facility] | + + + + | 2020-10-15 00:00 | CYCLOBENZAPRINE HCL | [facility] | + + + + | 2020-10-15 00:00 | CYCLOBENZAPRINE HCL | [facility] | + + + + | 2020-10-15 00:00 | CYCLOBENZAPRINE HCL | [facility] | + + + + | 2020-10-15 00:00 | CYCLOBENZAPRINE HCL | [facility] | + + + + | 2020-07-13 00:00 | TRAMADOL HCL | [facility] | + + + + | 2020-07-13 00:00 | TRAMADOL HCL | [facility] | + + + + | 2020-07-13 00:00 | TRAMADOL HCL | [facility] | + + + + | 2020-07-13 00:00 | TRAMADOL HCL | [facility] | + + + + | 2020-07-13 00:00 | TRAMADOL HCL | [facility] | + + + + | 2020-07-13 00:00 | TRAMADOL HCL | [facility] | + + + + | 2020-07-13 00:00 | TRAMADOL HCL | [facility] | + + + + | 2020-07-13 00:00 | TRAMADOL HCL | [facility] | + + + + | 2020-07-13 00:00 | TRAMADOL HCL | [facility] | + + + + | 2020-07-08 00:00 | | [facility] | | | SULFAMETHOXAZOLE/TRIMETHOPR | | | | IM DS | | + + + + | 2020-07-08 00:00 | | [facility] | | | SULFAMETHOXAZOLE/TRIMETHOPR | | | | IM DS | | + + + + | 2020-07-08 00:00 | | [facility] | | | SULFAMETHOXAZOLE/TRIMETHOPR | | | | IM DS | | + + + + | 2020-07-08 00:00 | | [facility] | | | SULFAMETHOXAZOLE/TRIMETHOPR | | | | IM DS | | + + + + | 2020-07-08 00:00 | | [facility] | | | SULFAMETHOXAZOLE/TRIMETHOPR | | | | IM DS | | + + + + | 2020-07-08 00:00 | | [facility] | | | SULFAMETHOXAZOLE/TRIMETHOPR | | | | IM DS | | + + + + | 2020-07-08 00:00 | | [facility] | | | SULFAMETHOXAZOLE/TRIMETHOPR | | | | IM DS | | + + + + | 2020-07-08 00:00 | | [facility] | | | SULFAMETHOXAZOLE/TRIMETHOPR | | | | IM DS | | + + + + | 2020-07-08 00:00 | | [facility] | | | SULFAMETHOXAZOLE/TRIMETHOPR | | | | IM DS | | + + + + | 2022-03-07 00:00 | | [facility] | | | SULFAMETHOXAZOLE/TRIMETHOPR | | | | IM DS | | + + + + | 2022-03-07 00:00 | | [facility] | | | SULFAMETHOXAZOLE/TRIMETHOPR | | | | IM DS | | + + + + | 2022-03-07 00:00 | | [facility] | | | SULFAMETHOXAZOLE/TRIMETHOPR | | | | IM DS | | + + + + | 2022-03-07 00:00 | | [facility] | | | SULFAMETHOXAZOLE/TRIMETHOPR | | | | IM DS | | + + + + | 2022-03-07 00:00 | | [facility] | | | SULFAMETHOXAZOLE/TRIMETHOPR | | | | IM DS | | + + + + | 2022-03-07 00:00 | | [facility] | | | SULFAMETHOXAZOLE/TRIMETHOPR | | | | IM DS | | + + + + | 2022-03-07 00:00 | | [facility] | | | SULFAMETHOXAZOLE/TRIMETHOPR | | | | IM DS | | + + + + | 2022-03-07 00:00 | | [facility] | | | SULFAMETHOXAZOLE/TRIMETHOPR | | | | IM DS | | + + + + | 2022-03-07 00:00 | | [facility] | | | SULFAMETHOXAZOLE/TRIMETHOPR | | | | IM DS | | + + + + | 2022-08-01 00:00 | | [facility] | | | SULFAMETHOXAZOLE/TRIMETHOPR | | | | IM DS | | + + + + | 2022-08-01 00:00 | | [facility] | | | SULFAMETHOXAZOLE/TRIMETHOPR | | | | IM DS | | + + + + | 2022-08-01 00:00 | | [facility] | | | SULFAMETHOXAZOLE/TRIMETHOPR | | | | IM DS | | + + + + | 2022-08-01 00:00 | | [facility] | | | SULFAMETHOXAZOLE/TRIMETHOPR | | | | IM DS | | + + + + | 2022-08-01 00:00 | | [facility] | | | SULFAMETHOXAZOLE/TRIMETHOPR | | | | IM DS | | + + + + | 2022-03-04 00:00 | ZOLPIDEM TARTRATE | [facility] | + + + + | 2022-03-07 00:00 | ZOLPIDEM TARTRATE | [facility] | + + + + | 2022-03-31 00:00 | ZOLPIDEM TARTRATE | [facility] | + + + + | 2022-04-02 00:00 | ZOLPIDEM TARTRATE | [facility] | + + + + | 2022-04-13 00:00 | ZOLPIDEM TARTRATE | [facility] | + + + + | 2022-04-29 00:00 | ZOLPIDEM TARTRATE | [facility] | + + + + | 2022-05-13 00:00 | ZOLPIDEM TARTRATE | [facility] | + + + + | 2022-05-13 00:00 | ZOLPIDEM TARTRATE | [facility] | + + + + | 2022-06-04 00:00 | ZOLPIDEM TARTRATE | [facility] | + + + + | 2022-06-06 00:00 | ZOLPIDEM TARTRATE | [facility] | + + + + | 2022-06-28 00:00 | ZOLPIDEM TARTRATE | [facility] | + + + + | 2022-07-25 00:00 | ZOLPIDEM TARTRATE | [facility] | + + + + | 2022-07-31 00:00 | ZOLPIDEM TARTRATE | [facility] | + + + + | 2022-08-01 00:00 | ZOLPIDEM TARTRATE | [facility] | + + + + | 2022-08-19 00:00 | ZOLPIDEM TARTRATE | [facility] | + + + + | 2022-09-01 00:00 | ZOLPIDEM TARTRATE | [facility] | + + + + | 2022-09-15 00:00 | ZOLPIDEM TARTRATE | [facility] | + + + + | 2022-09-16 00:00 | ZOLPIDEM TARTRATE | [facility] | + + + + | 2022-09-20 00:00 | ZOLPIDEM TARTRATE | [facility] | + + + + | 2022-10-02 00:00 | ZOLPIDEM TARTRATE | [facility] | + + + + | 2022-11-09 00:00 | ZOLPIDEM TARTRATE | [facility] | + + + + | 2022-11-13 00:00 | ZOLPIDEM TARTRATE | [facility] | + + + + | 2022-11-22 00:00 | ZOLPIDEM TARTRATE | [facility] | + + + + | 2022-11-24 00:00 | ZOLPIDEM TARTRATE | [facility] | + + + + | 2023-01-04 00:00 | ZOLPIDEM TARTRATE | [facility] | + + + + | 2023-01-07 00:00 | ZOLPIDEM TARTRATE | [facility] | + + + + | 2023-01-17 00:00 | ZOLPIDEM TARTRATE | [facility] | + + + + | 2023-02-02 00:00 | ZOLPIDEM TARTRATE | [facility] | + + + + | 2022-03-04 00:00 | TRAZODONE HCL | [facility] | + + + + | 2022-03-07 00:00 | TRAZODONE HCL | [facility] | + + + + | 2022-03-31 00:00 | TRAZODONE HCL | [facility] | + + + + | 2022-04-02 00:00 | TRAZODONE HCL | [facility] | + + + + | 2022-04-13 00:00 | TRAZODONE HCL | [facility] | + + + + | 2022-04-29 00:00 | TRAZODONE HCL | [facility] | + + + + | 2022-05-13 00:00 | TRAZODONE HCL | [facility] | + + + + | 2022-05-13 00:00 | TRAZODONE HCL | [facility] | + + + + | 2022-06-04 00:00 | TRAZODONE HCL | [facility] | + + + + | 2022-06-06 00:00 | TRAZODONE HCL | [facility] | + + + + | 2022-06-28 00:00 | TRAZODONE HCL | [facility] | + + + + | 2022-07-25 00:00 | TRAZODONE HCL | [facility] | + + + + | 2022-07-31 00:00 | TRAZODONE HCL | [facility] | + + + + | 2022-08-01 00:00 | TRAZODONE HCL | [facility] | + + + + | 2022-08-19 00:00 | TRAZODONE HCL | [facility] | + + + + | 2022-09-01 00:00 | TRAZODONE HCL | [facility] | + + + + | 2022-09-15 00:00 | TRAZODONE HCL | [facility] | + + + + | 2022-09-16 00:00 | TRAZODONE HCL | [facility] | + + + + | 2022-09-20 00:00 | TRAZODONE HCL | [facility] | + + + + | 2022-10-02 00:00 | TRAZODONE HCL | [facility] | + + + + | 2022-11-09 00:00 | TRAZODONE HCL | [facility] | + + + + | 2022-11-13 00:00 | TRAZODONE HCL | [facility] | + + + + | 2022-11-22 00:00 | TRAZODONE HCL | [facility] | + + + + | 2022-11-24 00:00 | TRAZODONE HCL | [facility] | + + + + | 2023-01-04 00:00 | TRAZODONE HCL | [facility] | + + + + | 2023-01-07 00:00 | TRAZODONE HCL | [facility] | + + + + | 2023-01-17 00:00 | TRAZODONE HCL | [facility] | + + + + | 2023-02-02 00:00 | TRAZODONE HCL | [facility] | + + + + | 2020-07-08 00:00 | HYDROCODONE | [facility] | | | BIT/ACETAMINOPHEN | | + + + + | 2020-07-08 00:00 | HYDROCODONE | [facility] | | | BIT/ACETAMINOPHEN | | + + + + | 2020-07-08 00:00 | HYDROCODONE | [facility] | | | BIT/ACETAMINOPHEN | | + + + + | 2020-07-08 00:00 | HYDROCODONE | [facility] | | | BIT/ACETAMINOPHEN | | + + + + | 2020-07-08 00:00 | HYDROCODONE | [facility] | | | BIT/ACETAMINOPHEN | | + + + + | 2020-07-08 00:00 | HYDROCODONE | [facility] | | | BIT/ACETAMINOPHEN | | + + + + | 2020-07-08 00:00 | HYDROCODONE | [facility] | | | BIT/ACETAMINOPHEN | | + + + + | 2020-07-08 00:00 | HYDROCODONE | [facility] | | | BIT/ACETAMINOPHEN | | + + + + | 2020-07-08 00:00 | [facility]OCODONE | [facility] | | BIT/ACETAMINOPHEN | | + + + + | 2022-11-22 00:00 | [facility]ODONE [facility] | | | BIT/ACETAMINOPHEN | | + + + + | 2022-11-22 00:00 | HYDROCODONE | [facility] | | | BIT/ACETAMINOPHEN | | + + + + | 2022-11-22 00:00 | HYDROCODONE | [facility] | | | BIT/ACETAMINOPHEN | | + + + + | 2022-11-22 00:00 | HYDROCODONE | [facility] | | | BIT/ACETAMINOPHEN | | + + + + | 2022-01-14 00:00 | ASENAPINE MALEATE | [facility] | + + + + | 2022-01-26 00:00 | ASENAPINE MALEATE | [facility] | + + + + | 2022-02-04 00:00 | ASENAPINE MALEATE | [facility] | + + + + | 2022-02-28 00:00 | ASENAPINE MALEATE | [facility] | + + + + | 2022-03-04 00:00 | ASENAPINE MALEATE | [facility] | + + + + | 2022-03-07 00:00 | ASENAPINE MALEATE | [facility] | + + + + | 2022-03-31 00:00 | ASENAPINE MALEATE | [facility] | + + + + | 2022-04-02 00:00 | ASENAPINE MALEATE | [facility] | + + + + | 2022-04-13 00:00 | ASENAPINE MALEATE | [facility] | + + + + | 2022-04-29 00:00 | ASENAPINE MALEATE | [facility] | + + + + | 2022-05-13 00:00 | ASENAPINE MALEATE | [facility] | + + + + | 2022-05-13 00:00 | ASENAPINE MALEATE | [facility] | + + + + | 2022-06-04 00:00 | ASENAPINE MALEATE | [facility] | + + + + | 2022-06-06 00:00 | ASENAPINE MALEATE | [facility] | + + + + | 2022-06-28 00:00 | ASENAPINE MALEATE | [facility] | + + + + | 2022-07-25 00:00 | ASENAPINE MALEATE | [facility] | + + + + | 2022-07-31 00:00 | ASENAPINE MALEATE | [facility] | + + + + | 2022-08-01 00:00 | ASENAPINE MALEATE | [facility] | + + + + | 2022-08-19 00:00 | ASENAPINE MALEATE | [facility] | + + + + | 2022-09-01 00:00 | ASENAPINE MALEATE | [facility] | + + + + | 2022-09-15 00:00 | ASENAPINE MALEATE | [facility] | + + + + | 2022-09-16 00:00 | ASENAPINE MALEATE | [facility] | + + + + | 2022-09-20 00:00 | ASENAPINE MALEATE | [facility] | + + + + | 2022-10-02 00:00 | ASENAPINE MALEATE | [facility] | + + + + | 2022-11-09 00:00 | ASENAPINE MALEATE | [facility] | + + + + | 2022-11-13 00:00 | ASENAPINE MALEATE | [facility] | + + + + | 2022-11-22 00:00 | ASENAPINE MALEATE | [facility] | + + + + | 2022-11-24 00:00 | ASENAPINE MALEATE | [facility] | + + + + | 2023-01-04 00:00 | ASENAPINE MALEATE | [facility] | + + + + | 2023-01-07 00:00 | ASENAPINE MALEATE | [facility] | + + + + | 2023-01-17 00:00 | ASENAPINE MALEATE | [facility] | + + + + | 2023-02-02 00:00 | ASENAPINE MALEATE | [facility] | + + + + | 2020-07-06 00:00 | MORPHINE SULFATE | [facility] | + + + + | 2020-07-06 00:00 | MORPHINE SULFATE | [facility] | + + + + | 2020-07-06 00:00 | MORPHINE SULFATE | [facility] | + + + + | 2020-07-06 00:00 | MORPHINE SULFATE | [facility] | + + + + | 2020-07-06 00:00 | MORPHINE SULFATE | [facility] | + + + + | 2020-07-06 00:00 | MORPHINE SULFATE | [facility] | + + + + | 2020-07-06 00:00 | MORPHINE SULFATE | [facility] | + + + + | 2020-07-06 00:00 | MORPHINE SULFATE | [facility] | + + + + | 2020-07-06 00:00 | MORPHINE SULFATE | [facility] | + + + + | 2022-05-13 00:00 | PROMETHAZINE HCL | [facility] | + + + + | 2022-05-13 00:00 | PROMETHAZINE HCL | [facility] | + + + + | 2022-06-04 00:00 | PROMETHAZINE HCL | [facility] | + + + + | 2022-06-06 00:00 | PROMETHAZINE HCL | [facility] | + + + + | 2022-06-28 00:00 | PROMETHAZINE HCL | [facility] | + + + + | 2022-07-25 00:00 | PROMETHAZINE HCL | [facility] | + + + + | 2022-07-31 00:00 | PROMETHAZINE HCL | [facility] | + + + + | 2022-08-01 00:00 | PROMETHAZINE HCL | [facility] | + + + + | 2022-08-19 00:00 | PROMETHAZINE HCL | [facility] | + + + + | 2022-09-01 00:00 | PROMETHAZINE HCL | [facility] | + + + + | 2022-09-15 00:00 | PROMETHAZINE HCL | [facility] | + + + + | 2022-09-16 00:00 | PROMETHAZINE HCL | [facility] | + + + + | 2022-09-20 00:00 | PROMETHAZINE HCL | [facility] | + + + + | 2022-10-02 00:00 | PROMETHAZINE HCL | [facility] | + + + + | 2022-11-09 00:00 | PROMETHAZINE HCL | [facility] | + + + + | 2022-11-13 00:00 | PROMETHAZINE HCL | [facility] | + + + + | 2022-11-22 00:00 | PROMETHAZINE HCL | [facility] | + + + + | 2022-11-24 00:00 | PROMETHAZINE HCL | [facility] | + + + + | 2023-01-04 00:00 | PROMETHAZINE HCL | [facility] | + + + + | 2023-01-07 00:00 | PROMETHAZINE HCL | [facility] | + + + + | 2023-01-17 00:00 | PROMETHAZINE HCL | [facility] | + + + + | 2023-02-02 00:00 | PROMETHAZINE HCL | [facility] | + + + + Problems + + + + | date | description | facility | + + + + | 2020-07-06 00:00 | 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 | | + + + + | 2020-07-06 00:00 | 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 | | + + + + | 2020-07-06 00:00 | 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 | | + + + + | 2020-07-06 00:00 | 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 | | + + + + | 2020-07-06 00:00 | [facility]a associated with | [facility] | | | disorder of lumbar spine | | + + + + | 2020-07-06 00:00 | 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 | | + + + + | 2020-07-06 00:00 | 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 | | + + + + | 2020-07-06 00:00 | 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 | | + + + + | 2020-07-06 00:00 | 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 | | + + + + | 2020-07-20 00:00 | Urinary tract infection | [facility] | + + + + | 2020-07-20 00:00 | Urinary tract infection | [facility] | + + + + | 2020-07-20 00:00 | Urinary tract infection | [facility] | + + + + | 2020-07-20 00:00 | Urinary tract infection | [facility] | + + + + | 2020-07-20 00:00 | Urinary tract infection | [facility] | + + + + | 2020-07-20 00:00 | Urinary tract infection | [facility] | + + + + | 2020-07-20 00:00 | Urinary tract infection | [facility] | + + + + | 2020-07-20 00:00 | Urinary tract infection | [facility] | + + + + | 2020-07-20 00:00 | Urinary tract infection | [facility] | + + + + | 2022-03-31 00:00 | Anxiety | [facility] | + + + + | 2022-03-31 00:00 | Anxiety | [facility] | + + + + | 2022-03-31 00:00 | Anxiety | [facility] | + + + + | 2022-03-31 00:00 | Anxiety | [facility] | + + + + | 2022-03-31 00:00 | Anxiety | [facility] | + + + + | 2022-03-31 00:00 | Anxiety | [facility] | + + + + | 2022-03-31 00:00 | Anxiety | [facility] | + + + + | 2022-03-31 00:00 | Anxiety | [facility] | + + + + | 2022-03-31 00:00 | Anxiety | [facility] | + + + + | 2022-03-31 00:00 | Grief | [facility] | + + + + | 2022-03-31 00:00 | Grief | [facility] | + + + + | 2022-03-31 00:00 | Grief | [facility] | + + + + | 2022-03-31 00:00 | Grief | [facility] | + + + + | 2022-03-31 00:00 | Grief | [facility] | + + + + | 2022-03-31 00:00 | Grief | [facility] | + + + + | 2022-03-31 00:00 | Grief | [facility] | + + + + | 2022-03-31 00:00 | Grief | [facility] | + + + + | 2022-03-31 00:00 | Grief | [facility] | + + + + | 2022-03-31 00:00 | Chest pain | [facility] | + + + + | 2022-03-31 00:00 | Chest pain | [facility] | + + + + | 2022-03-31 00:00 | Chest pain | [facility] | + + + + | 2022-03-31 00:00 | Chest pain | [facility] | + + + + | 2022-03-31 00:00 | Chest pain | [facility] | + + + + | 2022-03-31 00:00 | Chest pain | [facility] | + + + + | 2022-03-31 00:00 | Chest pain | [facility] | + + + + | 2022-03-31 00:00 | Chest pain | [facility] | + + + + | 2022-03-31 00:00 | Chest pain | [facility] | + + + + | 2022-04-02 00:00 | Chronic pain syndrome | [facility] | + + + + | 2022-04-02 00:00 | Chronic pain syndrome | [facility] | + + + + | 2022-04-02 00:00 | Chronic pain syndrome | [facility] | + + + + | 2022-04-02 00:00 | Chronic pain syndrome | [facility] | + + + + | 2022-04-02 00:00 | Chronic pain syndrome | [facility] | + + + + | 2022-04-02 00:00 | Chronic pain syndrome | [facility] | + + + + | 2022-04-02 00:00 | Chronic pain syndrome | [facility] | + + + + | 2022-04-02 00:00 | Chronic pain syndrome | [facility] | + + + + | 2022-04-02 00:00 | Chronic pain syndrome | [facility] | + + + + | 2022-04-02 00:00 | Atypical chest pain | [facility] | + + + + | 2022-04-02 00:00 | Atypical chest pain | [facility] | + + + + | 2022-04-02 00:00 | Atypical chest pain | [facility] | + + + + | 2022-04-02 00:00 | Atypical chest pain | [facility] | + + + + | 2022-04-02 00:00 | Atypical chest pain | [facility] | + + + + | 2022-04-02 00:00 | Atypical chest pain | [facility] | + + + + | 2022-04-02 00:00 | Atypical chest pain | [facility] | + + + + | 2022-04-02 00:00 | Atypical chest pain | [facility] | + + + + | 2022-04-02 00:00 | Atypical chest pain | [facility] | + + + + | 2022-04-29 00:00 | Left lower quadrant | [facility] | | | abdominal pain | | + + + + | 2022-04-29 00:00 | Left lower quadrant | [facility] | | [facility] | | + + + + | 2022-04-29 00:00 | Left lower quadrant | [facility] | | | abdominal [facility] | | + + + + | 2022-04-29 00:00 | Left lower quadrant | [facility] | | | abdominal pain | | + + + + | 2022-04-29 00:00 | Left lower quadrant | [facility] | | | abdominal pain | | + + + + | 2022-04-29 00:00 | Left lower quadrant | [facility] | | | abdominal pain | | + + + + | 2022-04-29 00:00 | Left lower quadrant | [facility] | | | abdominal pain | | + + + + | 2022-04-29 00:00 | Left lower quadrant | [facility] | | | abdominal pain | | + + + + | 2022-04-29 00:00 | Nausea and vomiting | [facility] | + + + + | 2022-04-29 00:00 | Nausea and vomiting | [facility] | + + + + | 2022-04-29 00:00 | Nausea and vomiting | [facility] | + + + + | 2022-04-29 00:00 | Nausea and vomiting | [facility] | + + + + | 2022-04-29 00:00 | Nausea and vomiting | [facility] | + + + + | 2022-04-29 00:00 | Nausea and vomiting | [facility] | + + + + | 2022-04-29 00:00 | Nausea and vomiting | [facility] | + + + + | 2022-04-29 00:00 | Nausea and vomiting | [facility] | + + + + | 2022-04-29 00:00 | Lung nodule | [facility] | + + + + | 2022-04-29 00:00 | Lung nodule | [facility] | + + + + | 2022-04-29 00:00 | Lung nodule | [facility] | + + + + | 2022-04-29 00:00 | Lung nodule | [facility] | + + + + | 2022-04-29 00:00 | Lung nodule | [facility] | + + + + | 2022-04-29 00:00 | Lung nodule | [facility] | + + + + | 2022-04-29 00:00 | Lung nodule | [facility] | + + + + | 2022-04-29 00:00 | Lung nodule | [facility] | + + + + | 2022-05-12 00:00 | Upper respiratory tract | [facility] | | | infection | | + + + + | 2022-05-12 00:00 | Upper respiratory tract | [facility] | | | infection | | + + + + | 2022-05-12 00:00 | Upper respiratory tract | [facility] | | | infection | | + + + + | 2022-05-12 00:00 | Upper respiratory tract | [facility] | | | infection | | + + + + | 2022-05-12 00:00 | Upper respiratory tract | [facility] | | | infection | | + + + + | 2022-05-12 00:00 | Upper respiratory tract | [facility] | | | infection | | + + + + | 2022-05-12 00:00 | Upper respiratory tract | [facility] | | | infection | | + + + + | 2022-05-12 00:00 | Upper respiratory tract | [facility] | | | infection | | + + + + | 2022-06-04 00:00 | Neck sprain | [facility] | + + + + | 2022-06-04 00:00 | Neck sprain | [facility] | + + + + | 2022-06-04 00:00 | Neck sprain | [facility] | + + + + | 2022-06-04 00:00 | Neck sprain | [facility] | + + + + | 2022-06-04 00:00 | Neck sprain | [facility] | + + + + | 2022-06-04 00:00 | Neck sprain | [facility] | + + + + | 2022-06-04 00:00 | Neck sprain | [facility] | + + + + | 2022-06-04 [...] + | 2022-06-06 00:00 | Concussion | [facility] | + + + + | 2022-06-06 00:00 | Concussion | [facility] | + + + + | 2022-06-06 00:00 | Concussion | [facility] | + + + + | 2022-06-06 00:00 | Concussion | [facility] | + + + + | 2022-06-06 00:00 | Concussion | [facility] | + + + + | 2022-06-06 00:00 | Concussion | [facility] | + + + + | 2022-06-06 00:00 | Concussion | [facility] | + + + + | 2022-06-06 00:00 | Injury of head | [facility] | + + + + | 2022-06-06 00:00 | Injury of head | [facility] | + + + + | 2022-06-06 00:00 | Injury of head | [facility] | + + + + | 2022-06-06 00:00 | Injury of head | [facility] | + + + + | 2022-06-06 00:00 | Injury of head | [facility] | + + + + | 2022-06-06 00:00 | Injury of head | [facility] | + + + + | 2022-06-06 00:00 | Injury of head | [facility] | + + + + [...] + + | 2022-06-06 13:10 | 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 SKILLED NURSING (CURRENT) | [facility] | | | DRUG [...] | 2022-06-25 00:00 | Abdominal pain | [facility] | + + + + | 2022-06-25 00:00 | Abdominal pain | [facility] | + + + + | 2022-06-25 00:00 | Abdominal pain | [facility] | + + + + | 2022-06-25 00:00 | Abdominal pain | [facility] | + + + + | 2022-06-25 00:00 | Abdominal pain | [facility] | + + + + | 2022-06-25 00:00 | Abdominal pain | [facility] | + + + + | 2022-06-25 00:00 | Abdominal pain | [facility] | + + + + | 2022-06-25 [...] + + | 2022-06-25 12:18 | 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) | [facility] | | | DRUG [...] + + | 2022-07-25 10:43 | 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) | [facility] | | | DRUG [...] 00:00 | Patient left without being | [facility] | | | seen | | + + + + | 2022-07-31 00:00 | Patient left without being | [facility] | | | seen | | + + + + | 2022-07-31 00:00 | Patient left without being | [facility] | | | seen | | + + + + | 2022-07-31 00:00 | Patient left without being | [facility] | | | seen | | + + + + | 2022-07-31 00:00 | Patient left without being | [facility] | | | seen | | + + + + | 2022-07-31 00:00 | Patient left without being | [facility] | | | seen | | + [...] + + | 2022-08-01 08:08 | OTHER SKILLED NURSING (CURRENT) | [facility] | | | DRUG [...] + + | 2022-08-19 14:20 | OTHER SKILLED NURSING (CURRENT) | [facility] | | | DRUG [...] 2022-09-01 00:00 | Chronic abdominal pain | [facility] | + + + + | 2022-09-01 00:00 | Chronic abdominal pain | [facility] | + + + + | 2022-09-01 00:00 | Chronic abdominal pain | [facility] | + + + + | 2022-09-01 00:00 | Chronic abdominal pain | [facility] | + + + + | 2022-09-01 00:00 | Chronic abdominal pain | [facility] | + + + + | 2022-09-01 00:00 | Headache | [facility] | + + + + | 2022-09-01 00:00 | Headache | [facility] | + + + + | 2022-09-01 00:00 | Headache | [facility] | + + + + | 2022-09-01 00:00 | Headache | [facility] | + + + + | 2022-09-01 00:00 | Headache | [facility] | + + + + [...] + + | 2022-09-01 14:12 | 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) | [facility] | | | DRUG [...] + + | 2022-09-15 08:51 | OTHER SKILLED NURSING (CURRENT) | [facility] | | | DRUG [...] + + | 2022-09-16 11:56 | 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 | + + + + | 2022-11-22 [...] + + | 2022-11-22 11:47 | OTHER SKILLED NURSING (CURRENT) | [facility] | | | DRUG [...] | 2022-11-24 00:00 | Flank pain | [facility] | + + + + | 2022-11-24 00:00 | Flank pain | [facility] | + + + + | 2022-11-24 00:00 | Flank pain | [facility] | + + + + [...] 00:00 | Traumatic injury of head | [facility] | + + + + | 2023-01-07 00:00 | Strain of neck muscle | [facility] | + + + + | 2023-01-07 [...] + + | 2023-01-07 15:00 | OTHER SKILLED NURSING (CURRENT) | [facility] | | | DRUG [...] | 2023-01-17 00:00 | Acute bronchitis | [facility] | + + + + | 2023-01-17 [...] + + | 2023-01-17 09:21 | 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) | [facility] | | | DRUG [...] RPR AA HRN 1ST < 3 | [facility] | | | NCR/STRN | | + + + + Results/Labs +--------+--------+ +---------+--------+---------+ | test | date | facility | value | unit | notes | +--------+--------+ +---------+--------+---------+ + + | Result panel 1 | + + + + + +--------+ + + | | 2022-01-09 | [facility] | 13.8 | (missing) | (missing) | | (unavailable | 15:44 | [facility] | | | | | ) | [...] mg/dL | (missing) | | (unavailable | 11: | [facility] | | | | + + + +-------+---------+ + + + | Result panel 84 | + + + + + +------+---------+ + | | 2022-01-23 | [facility] | 15 | mg/dL | (missing) | | (unavailable | 11: | [facility] | | | | [...] (missing) | | (unavailable | 11:00 | [facility] | | | | | [...] 205 | + + + + + +-------+---------+ + | | 2022-03-04 | [facility] | 205 | mg/dL | (missing) | | (unavailable | 12:00 | [facility] | | | | + + + +-------+---------+ + + + | Result panel 206 | + + + + + +------+---------+ + | | 2022-03-04 | [facility] | 17 | mg/dL | (missing) | | (unavailable | 12:00 | [facility] | | | | + + + +------+---------+ + + + | Result panel 207 | + + + + + +--------+---------+ + | | 2022-03-04 | [facility] | 1.33 | mg/dL | (missing) | | (unavailable | 12:00 | [facility] | | | | + + + +--------+---------+ + + + | Result panel 208 | + + + + + +------+ + + | | 2022-03-04 | [facility] | 48 | (missing) | (missing) | | (unavailable | 12:00 | [facility] | | | + + + +------+ + + + + | Result panel 209 | + + + + + +---------+ [...] 212 | + + + + + +-------+ [...] 214 | + + + + + +--------+ [...] 216 | + + + + + +-------+---------+ + | | 2022-03-04 | [facility] | 1.7 | mg/dL | (missing) | | (unavailable | 12:00 | [facility] | | | | + + + +-------+---------+ + + + | Result panel 217 [...] 219 | + + + + + +-------+ [...] 223 | + + + + + +------+ [...] 265 | + + + + + +---------+ [...] 267 | + + + + + + [...] 269 | + + + + + +---------+ + + | | 2022-03-07 | [facility] | 1.025 | (missing) | (missing) | | (unavailable | 14:40 | [facility] | | | | + + + +---------+ + + + + | Result panel 270 | + + + + + + + + + | | 2022-03-07 | [facility] | NEGATIVE | (missing) | (missing) | | (unavailable | 14:40 | [facility] | | | | + + + + + + + + + | Result panel 271 | + + + + + +-------+ + + | | 2022-03-07 | [facility] | 6.5 | (missing) | (missing) | | (unavailable | 14:40 | [facility] | | | | + + + +-------+ + + + + | Result panel 272 | + + + + + +-------+ [...] 274 | + + + + + + + + + | | 2022-03-07 | [facility] | POSITIVE | (missing) | (missing) | | (unavailable | 14:40 | [facility] | | | | + + + + + + + + + | Result panel 275 | + + + + + + + + + | | 2022-03-07 | [facility] | NEGATIVE | (missing) | (missing) | | (unavailable | 14:40 | [facility] | | | | + + + + + + + + + | Result panel 276 | + + + + + +-------+ + + | | 2022-03-07 | [facility] | 0-1 | (missing) | (missing) | | (unavailable | 14:40 | [facility] | | | | + + + +-------+ + + + + | Result panel 277 | + + + + + +-------+ + + | | 2022-03-07 | [facility] | 4-6 | (missing) | (missing) | | (unavailable | 14:40 | [facility] | | | | + + + +-------+ + + + + | Result panel 278 | + + + + + + [...] 280 | + + + + + +------+ + + | | 2022-03-07 | [facility] | 4+ | (missing) | (missing) | | (unavailable | 14:40 | [facility] | | | | + + + +------+ + + + + | Result panel 281 | + + + + + + + + + | | 2022-03-07 | [facility] | NONE SEEN | (missing) | (missing) | | (unavailable | 14:40 | [facility] | | | | + + + + + + + + + | Result panel 282 | + + + + + +-------+ + + | | 2022-03-07 | [facility] | Yes | (missing) | (missing) | | (unavailable | 14:40 [facility] | | | + + + +-------+ + + + + | Result panel 283 | + + + + + +--------+ [...] 285 | + + + + + +---------+ [...] 287 | + + + + + + [...] 289 | + + + + + +---------+ + + | | 2022-03-07 | [facility] | 1.025 | (missing) | (missing) | | (unavailable | 14:40 [facility] | | | + + + +---------+ + + + + | Result panel 290 | + + + + + + + + + | | 2022-03-07 | [facility] | NEGATIVE | (missing) | (missing) | | (unavailable | 14:40 [facility] | | | | + + + + + + + + + | Result panel 291 | + + + + + +-------+ + + | | 2022-03-07 | [facility] | 6.5 | (missing) | (missing) | | (unavailable | 14:40 [facility] | | | + + + +-------+ + + + + | Result panel 292 | + + + + + +-------+ [...] 294 | + + + + + + + + + | | 2022-03-07 | [facility] | POSITIVE | (missing) | (missing) | | (unavailable | 14:40 [facility] | | | | + + + + + + + + + | Result panel 295 | + + + + + + + + + | | 2022-03-07 | [facility] | NEGATIVE | (missing) | (missing) | | (unavailable | 14:40 [facility] | | | + + + + + + + + + | Result panel 296 | + + + + + +-------+ + + | | 2022-03-07 | [facility] | 0-1 | (missing) | (missing) | | (unavailable | 14:40 [facility] | | | + + + +-------+ + + + + | Result panel 297 | + + + + + +-------+ + + | | 2022-03-07 | [facility] | 4-6 | (missing) | (missing) | | (unavailable | 14:40 [facility] | | | + + + +-------+ + + + + | Result panel 298 | + + + + + + [...] 300 | + + + + + +------+ + + | | 2022-03-07 | [facility] | 4+ | (missing) | (missing) | | (unavailable | 14:40 [facility] | | | + + + +------+ + + + + | Result panel 301 | + + + + + + + + + | | 2022-03-07 | [facility] | NONE SEEN | (missing) | (missing) | | (unavailable | 14:40 [facility] | | | + + + + + + + + + | Result panel 302 | + + + + + +-------+ + + | | 2022-03-07 | [facility] | Yes | (missing) | (missing) | | (unavailable | 14:40 [facility] | | | + + + +-------+ + + + + | Result panel 303 | + + + + + +--------+ [...] 305 | + + + + + +---------+ [...] 307 | + + + + + + [...] 309 | + + + + + +---------+ + + | | 2022-03-07 | [facility] | 1.025 | (missing) | (missing) | | (unavailable | 14:40 [facility] | | | + + + +---------+ + + + + | Result panel 310 | + + + + + + + + + | | 2022-03-07 | [facility] | NEGATIVE | (missing) | (missing) | | (unavailable | 14:40 [facility] | | | | + + + + + + + + + | Result panel 311 | + + + + + +-------+ + + | | 2022-03-07 | [facility] | 6.5 | (missing) | (missing) | | (unavailable | 14:40 [facility] | | | + + + +-------+ + + + + | Result panel 312 | + + + + + +-------+ [...] 314 | + + + + + + + + + | | 2022-03-07 | [facility] | POSITIVE | (missing) | (missing) | | (unavailable | 14:40 [facility] | | | | + + + + + + + + + | Result panel 315 | + + + + + + + + + | | 2022-03-07 | [facility] | NEGATIVE | (missing) | (missing) | | (unavailable | 14:40 [facility] | | | | + + + + + + + + + | Result panel 316 | + + + + + +-------+ + + | | 2022-03-07 | [facility] | 0-1 | (missing) | (missing) | | (unavailable | 14:40 [facility] | | | + + + +-------+ + + + + | Result panel 317 | + + + + + +-------+ + + | | 2022-03-07 | [facility] | 4-6 | (missing) | (missing) | | (unavailable | 14:40 [facility] | | | + + + +-------+ + + + + | Result panel 318 | + + + + + + [...] 320 | + + + + + +------+ + + | | 2022-03-07 | [facility] | 4+ | (missing) | (missing) | | (unavailable | 14:40 [facility] | | | + + + +------+ + + + + | Result panel 321 | + + + + + + + + + | | 2022-03-07 | [facility] | NONE SEEN | (missing) | (missing) | | (unavailable | 14:40 | [facility] | | | + + + + + + + + + | Result panel 322 | + + + + + +-------+ + + | | 2022-03-07 | [facility] | Yes | (missing) | (missing) | | (unavailable | 14:40 [facility] | | | + + + +-------+ + + + + | Result panel 323 | + + + + + +--------+ [...] 339 | + + + + + +-------+---------+ + | | 2022-03-31 | [facility] | 149 | mg/dL | (missing) | | (unavailable | 16:35 | [facility] | | | + + + +-------+---------+ + + + | Result panel 340 | + + + + + +------+---------+ + | | 2022-03-31 | [facility] | 20 | mg/dL | (missing) | | (unavailable | 16:35 | [facility] | | | + + + +------+---------+ + + + | Result panel 341 | + + + + + +--------+---------+ + | | 2022-03-31 | [facility] | 1.09 | mg/dL | (missing) | | (unavailable | 16:35 [facility] | | | | + + + +--------+---------+ + + + | Result panel 342 | + + + + + +------+ + + | | 2022-03-31 | [facility] | 61 | (missing) | (missing) | | (unavailable | 16:35 [facility] | | | + + + +------+ + + + + | Result panel 343 | + + + + + +---------+ [...] 346 | + + + + + +-------+ + + | | 2022-03-31 | [facility] | 101 | (missing) | (missing) | | (unavailable | 16:35 [facility] | | | + + + +-------+ + + + + | Result panel 347 | + + + + + +------+ + + | | 2022-03-31 | [facility] | 24 | (missing) | (missing) | | (unavailable | 16:35 [facility] | | | + + + +------+ + + + + | Result panel 348 | + + + + + +--------+ + + | | 2022-03-31 | [facility] | 14.9 | (missing) | (missing) | | (unavailable | 16:35 [facility] | | | + + + +--------+ + + + + | Result panel 349 [...] 350 | + + + + + +-------+---------+ + | | 2022-03-31 | [facility] | 1.8 | mg/dL | (missing) | | (unavailable | 16:35 [facility] | | | + + + +-------+---------+ + + + | Result panel 351 [...] 353 | + + + + + +-------+ + + | | 2022-03-31 | [facility] | 4.0 | (missing) | (missing) | | (unavailable | 16:35 [facility] | | | + + + +-------+ + + + + | Result panel 354 | + + + + + +--------+ + + | | 2022-03-31 | [facility] | 0.93 | (missing) | (missing) | | (unavailable | 16:35 [facility] | | | + + + +--------+ + + + + | Result panel 355 | + + + + + +-------+ [...] 357 | + + + + + +------+ [...] 359 | + + + + + +-------+ + + | | 2022-03-31 | [facility] | 7.6 | (missing) | (missing) | | (unavailable | 16:35 [facility] | | | | + + + +-------+ + + + + | Result panel 360 [...] (missing) | | (unavailable | 17:36 | [facility] | | | | | [...] 607 | + + + + + +-------+---------+ + | | 2022-05-13 | [facility] | 147 | mg/dL | (missing) | | (unavailable | 13:55:08 | [facility] | | | + + + +-------+---------+ + + + | Result panel 608 | + + + + + +------+---------+ + | | 2022-05-13 | [facility] | 17 | mg/dL | (missing) | | (unavailable | 13:55:08 [facility] | | | + + + +------+---------+ + + + | Result panel 609 | + + + + + +--------+---------+ + | | 2022-05-13 | [facility] | 1.02 | mg/dL | (missing) | | (unavailable | 13:55:08 [facility] | | | + + + +--------+---------+ + + + | Result panel 610 | + + + + + +------+ + + | | 2022-05-13 | [facility] | 66 | (missing) | (missing) | | (unavailable | 13:55:08 [facility] | | | | + + + +------+ + + + + | Result panel 611 | + + + + + +---------+ + + | | 2022-05-13 | [facility] | 16.66 | (missing) | (missing) | | (unavailable | 13:55:08 [facility] | | | + + + +---------+ + + + + | Result panel 612 | + + + + + +-------+ + + | | 2022-05-13 | [facility] | 137 | (missing) | (missing) | | (unavailable | 13:55:08 [facility] | | | + + + +-------+ + + + + | Result panel 613 | + + + + + +-------+ + + | | 2022-05-13 | [facility] | 4.3 | (missing) | (missing) | | (unavailable | 13:55:08 [facility] | | | + + + +-------+ + + + + | Result panel 614 | + + + + + +-------+ + + | | 2022-05-13 | [facility] | 102 | (missing) | (missing) | | (unavailable | 13:55:08 [facility] | | | + + + +-------+ + + + + | Result panel 615 | + + + + + +------+ [...] 617 | + + + + + +-------+---------+ + | | 2022-05-13 | [facility] | 9.5 | mg/dL | (missing) | | (unavailable | 13:55:08 [facility] | | | + + + +-------+---------+ + + + | Result panel 618 | + + + + + +-------+---------+ + | | 2022-05-13 | [facility] | 1.7 | mg/dL | (missing) | | (unavailable | 13:55:08 | [facility] | | | | + + + +-------+---------+ + + + | Result panel 619 [...] 621 | + + + + + +-------+ + + | | 2022-05-13 | [facility] | 3.9 | (missing) | (missing) | | (unavailable | 13:55:08 [facility] | | | + + + +-------+ + + + + | Result panel 622 | + + + + + +--------+ + + | | 2022-05-13 | [facility] | 0.90 | (missing) | (missing) | | (unavailable | 13:55:08 [facility] | | | + + + +--------+ + + + + | Result panel 623 | + + + + + +-------+ + + | | 2022-05-13 | [facility] | 0.4 | (missing) | (missing) | | (unavailable | 13:55:08 [facility] | | | + + + +-------+ + + + + | Result panel 624 [...] 625 | + + + + + +------+ [...] 627 | + + + + + +------+ + + | | 2022-05-13 | [facility] | 62 | (missing) | (missing) | | (unavailable | 13:55:08 [facility] | | | | + + + +------+ + + + + | Result panel 628 | + + + + + +--------+ + + | | 2022-05-13 | [facility] | 11.8 | (missing) | (missing) | | (unavailable | 13:55:08 [facility] | | | + + + +--------+ + + + + | Result panel 629 | + + + + + +--------+ [...] 631 | + + + + + +--------+ + + | | 2022-05-13 | [facility] | 45.1 | (missing) | (missing) | | (unavailable | 13:55:08 [facility] | | | + + + +--------+ + + + + | Result panel 632 | + + + + + +--------+ + + | | 2022-05-13 | [facility] | 93.1 | (missing) | (missing) | | (unavailable | 13:55:08 [facility] | | | | + + + +--------+ + + + + | Result panel 633 | + + + + + +--------+ + + | | 2022-05-13 | [facility] | 30.7 | (missing) | (missing) | | (unavailable | 13:55:08 [facility] | | | | + + + +--------+ + + + + | Result panel 634 | + + + + + +--------+ + + | | 2022-05-13 | [facility] | 33.0 | (missing) | (missing) | | (unavailable | 13:55:08 [facility] | | | + + + +--------+ + + + + | Result panel 635 | + + + + + +--------+ + + | | 2022-05-13 | [facility] | 14.1 | (missing) | (missing) | | (unavailable | 13:55:08 [facility] | | | | + + + +--------+ + + + + | Result panel 636 | + + + + + +-------+ + + | | 2022-05-13 | [facility] | 267 | (missing) | (missing) | | (unavailable | 13:55:08 [facility] | | | | + + + +-------+ + + + + | Result panel 637 | + + + + + +--------+ + + | | 2022-05-13 | [facility] | 65.2 | (missing) | (missing) | | (unavailable | 13:55:08 [facility] | | | | + + + +--------+ + + + + | Result panel 638 | + + + + + +--------+ + + | | 2022-05-13 | [facility] | 26.3 | (missing) | (missing) | | (unavailable | 13:55:08 [facility] | | | + + + +--------+ + + + + | Result panel 639 | + + + + + +-------+ [...] 641 | + + + + + +-------+ + + | | 2022-05-13 | [facility] | 0.9 | (missing) | (missing) | | (unavailable | 13:55:08 [facility] | | | | + + + +-------+ + + + + | Result panel 642 | + + + + + +-------+---------+ + | | 2022-05-13 | [facility] | 147 | mg/dL | (missing) | | (unavailable | 13:55:08 [facility] | | | | + + + +-------+---------+ + + + | Result panel 643 | + + + + + +------+---------+ + | | 2022-05-13 | [facility] | 17 | mg/dL | (missing) | | (unavailable | 13:55:08 [facility] | | | | + + + +------+---------+ + + + | Result panel 644 | + + + + + +--------+---------+ + | | 2022-05-13 | [facility] | 1.02 | mg/dL | (missing) | | (unavailable | 13:55:08 [facility] | | | | + + + +--------+---------+ + + + | Result panel 645 | + + + + + +------+ + + | | 2022-05-13 | [facility] | 66 | (missing) | (missing) | | (unavailable | 13:55:08 | [facility] | | | | + + + +------+ + + + + | Result panel 646 | + + + + + +---------+ + + | | 2022-05-13 | [facility] | 16.66 | (missing) | (missing) | | (unavailable | 13:55:08 | [facility] | | | | + + + +---------+ + + + + | Result panel 647 | + + + + + +-------+ + + | | 2022-05-13 | [facility] | 137 | (missing) | (missing) | | (unavailable | 13:55:08 | [facility] | | | | + + + +-------+ + + + + | Result panel 648 | + + + + + +-------+ + + | | 2022-05-13 | [facility] | 4.3 | (missing) | (missing) | | (unavailable | 13:55:08 | [facility] | | | | + + + +-------+ + + + + | Result panel 649 | + + + + + +-------+ + + | | 2022-05-13 | [facility] | 102 | (missing) | (missing) | | (unavailable | 13:55:08 | [facility] | | | | + + + +-------+ + + + + | Result panel 650 | + + + + + +------+ [...] 652 | + + + + + +-------+---------+ + | | 2022-05-13 | [facility] | 9.5 | mg/dL | (missing) | | (unavailable | 13:55:08 | [facility] | | | | + + + +-------+---------+ + + + | Result panel 653 | + + + + + +-------+---------+ + | | 2022-05-13 | [facility] | 1.7 | mg/dL | (missing) | | (unavailable | 13:55:08 | [facility] | | | | + + + +-------+---------+ + + + | Result panel 654 [...] 656 | + + + + + +-------+ + + | | 2022-05-13 | [facility] | 3.9 | (missing) | (missing) | | (unavailable | 13:55:08 | [facility] | | | | + + + +-------+ + + + + | Result panel 657 | + + + + + +--------+ + + | | 2022-05-13 | [facility] | 0.90 | (missing) | (missing) | | (unavailable | 13:55:08 | [facility] | | | | + + + +--------+ + + + + | Result panel 658 | + + + + + +-------+ + + | | 2022-05-13 | [facility] | 0.4 | (missing) | (missing) | | (unavailable | 13:55:08 | [facility] | | | | + + + +-------+ + + + + | Result panel 659 [...] 660 | + + + + + +------+ [...] 662 | + + + + + +------+ + + | | 2022-05-13 | [facility] | 62 | (missing) | (missing) | | (unavailable | 13:55:08 | [facility] | | | | + + + +------+ + + + + | Result panel 663 | + + + + + +--------+ + + | | 2022-05-13 | [facility] | 11.8 | (missing) | (missing) | | (unavailable | 13:55:08 | [facility] | | | + + + +--------+ + + + + | Result panel 664 | + + + + + +--------+ [...] 666 | + + + + + +--------+ + + | | 2022-05-13 | [facility] | 45.1 | (missing) | (missing) | | (unavailable | 13:55:08 | [facility] | | | + + + +--------+ + + + + | Result panel 667 | + + + + + +--------+ + + | | 2022-05-13 | [facility] | 93.1 | (missing) | (missing) | | (unavailable | 13:55:08 [facility] | | | + + + +--------+ + + + + | Result panel 668 | + + + + + +--------+ + + | | 2022-05-13 | [facility] | 30.7 | (missing) | (missing) | | (unavailable | 13:55:08 [facility] | | | + + + +--------+ + + + + | Result panel 669 | + + + + + +--------+ + + | | 2022-05-13 | [facility] | 33.0 | (missing) | (missing) | | (unavailable | 13:55:08 [facility] | | | + + + +--------+ + + + + | Result panel 670 | + + + + + +--------+ + + | | 2022-05-13 | [facility] | 14.1 | (missing) | (missing) | | (unavailable | 13:55:08 [facility] | | | + + + +--------+ + + + + | Result panel 671 | + + + + + +-------+ + + | | 2022-05-13 | [facility] | 267 | (missing) | (missing) | | (unavailable | 13:55:08 [facility] | | | + + + +-------+ + + + + | Result panel 672 | + + + + + +--------+ + + | | 2022-05-13 | [facility] | 65.2 | (missing) | (missing) | | (unavailable | 13:55:08 [facility] | | | + + + +--------+ + + + + | Result panel 673 | + + + + + +--------+ + + | | 2022-05-13 | [facility] | 26.3 | (missing) | (missing) | | (unavailable | 13:55:08 [facility] | | | + + + +--------+ + + + + | Result panel 674 | + + + + + +-------+ [...] 676 | + + + + + +-------+ + + | | 2022-05-13 | [facility] | 0.9 | (missing) | (missing) | | (unavailable | 13:55:08 [facility] | | | + + + +-------+ + + + + | Result panel 677 | + + + + + +-------+---------+ + | | 2022-05-13 | [facility] | 147 | mg/dL | (missing) | | (unavailable | 13:55:08 [facility] | | | + + + +-------+---------+ + + + | Result panel 678 | + + + + + +------+---------+ + | | 2022-05-13 | [facility] | 17 | mg/dL | (missing) | | (unavailable | 13:55:08 [facility] | | | + + + +------+---------+ + + + | Result panel 679 | + + + + + +--------+---------+ + | | 2022-05-13 | [facility] | 1.02 | mg/dL | (missing) | | (unavailable | 13:55:08 [facility] | | | + + + +--------+---------+ + + + | Result panel 680 | + + + + + +------+ + + | | 2022-05-13 | [facility] | 66 | (missing) | (missing) | | (unavailable | 13:55:08 [facility] | | | + + + +------+ + + + + | Result panel 681 | + + + + + +---------+ + + | | 2022-05-13 | [facility] | 16.66 | (missing) | (missing) | | (unavailable | 13:55:08 [facility] | | | + + + +---------+ + + + + | Result panel 682 | + + + + + +-------+ + + | | 2022-05-13 | [facility] | 137 | (missing) | (missing) | | (unavailable | 13:55:08 | [facility] | | | + + + +-------+ + + + + | Result panel 683 | + + + + + +-------+ + + | | 2022-05-13 | [facility] | 4.3 | (missing) | (missing) | | (unavailable | 13:55:08 [facility] | | | + + + +-------+ + + + + | Result panel 684 | + + + + + +-------+ + + | | 2022-05-13 | [facility] | 102 | (missing) | (missing) | | (unavailable | 13:55:08 [facility] | | | + + + +-------+ + + + + | Result panel 685 | + + + + + +------+ [...] 687 | + + + + + +-------+---------+ + | | 2022-05-13 | [facility] | 9.5 | mg/dL | (missing) | | (unavailable | 13:55:08 [facility] | | | + + + +-------+---------+ + + + | Result panel 688 | + + + + + +-------+---------+ + | | 2022-05-13 | [facility] | 1.7 | mg/dL | (missing) | | (unavailable | 13:55:08 [facility] | | | + + + +-------+---------+ + + + | Result panel 689 [...] 691 | + + + + + +-------+ + + | | 2022-05-13 | [facility] | 3.9 | (missing) | (missing) | | (unavailable | 13:55:08 [facility] | | | + + + +-------+ + + + + | Result panel 692 | + + + + + +--------+ + + | | 2022-05-13 | [facility] | 0.90 | (missing) | (missing) | | (unavailable | 13:55:08 [facility] | | | + + + +--------+ + + + + | Result panel 693 | + + + + + +-------+ + + | | 2022-05-13 | [facility] | 0.4 | (missing) | (missing) | | (unavailable | 13:55:08 [facility] | | | + + + +-------+ + + + + | Result panel 694 [...] 695 | + + + + + +------+ [...] 697 | + + + + + +------+ + + | | 2022-05-13 | [facility] | 62 | (missing) | (missing) | | (unavailable | 13:55:08 [facility] | | | + + + +------+ + + + + | Result panel 698 | + + + + + +--------+ + + | | 2022-05-13 | [facility] | 11.8 | (missing) | (missing) | | (unavailable | 13:55:08 [facility] | | | + + + +--------+ + + + + | Result panel 699 | + + + + + +--------+ [...] 701 | + + + + + +--------+ + + | | 2022-05-13 | [facility] | 45.1 | (missing) | (missing) | | (unavailable | 13:55:08 [facility] | | | + + + +--------+ + + + + | Result panel 702 | + + + + + +--------+ + + | | 2022-05-13 | [facility] | 93.1 | (missing) | (missing) | | (unavailable | 13:55:08 [facility] | | | + + + +--------+ + + + + | Result panel 703 | + + + + + +--------+ + + | | 2022-05-13 | [facility] | 30.7 | (missing) | (missing) | | (unavailable | 13:55:08 [facility] | | | + + + +--------+ + + + + | Result panel 704 | + + + + + +--------+ + + | | 2022-05-13 | [facility] | 33.0 | (missing) | (missing) | | (unavailable | 13:55:08 [facility] | | | + + + +--------+ + + + + | Result panel 705 | + + + + + +--------+ + + | | 2022-05-13 | [facility] | 14.1 | (missing) | (missing) | | (unavailable | 13:55:08 [facility] | | | + + + +--------+ + + + + | Result panel 706 | + + + + + +-------+ + + | | 2022-05-13 | [facility] | 267 | (missing) | (missing) | | (unavailable | 13:55:08 | [facility] | | | + + + +-------+ + + + + | Result panel 707 | + + + + + +--------+ + + | | 2022-05-13 | [facility] | 65.2 | (missing) | (missing) | | (unavailable | 13:55:08 [facility] | | | + + + +--------+ + + + + | Result panel 708 | + + + + + +--------+ + + | | 2022-05-13 | [facility] | 26.3 | (missing) | (missing) | | (unavailable | 13:55:08 | [facility] | | | + + + +--------+ + + + + | Result panel 709 | + + + + + +-------+ [...] 711 | + + + + + +-------+ [...] mg/dL | (missing) | | (unavailable | :08 | [facility] | | | | | [...] (missing) | | (unavailable | 14:32:08 | [facility] | | | | | [...] + + + + | Result panel 1093 | + + + + + +--------+ [...] + + + + | Result panel 1122 | + + + + + +--------+ [...] mg/dL | (missing) | | (unavailable | | [facility] | | | | + + + +------+---------+ + + + | Result panel 1168 | + + + + + +--------+---------+ + | | 2022-09-12 | [facility] | 0.95 | mg/dL | (missing) | | (unavailable | ::07 | [facility] | | | | [...] mg/dL | (missing) | | (unavailable | 14::07 [...] mg/dL | (missing) | | (unavailable | 14::07 [...] (missing) | | (unavailable | 14:00:07 | [facility] | | | | | [...] (missing) | (missing) | | (unavailable | 12: | [facility] | | | | + + + +-------+ + + + + | Result panel 1326 | + + + + + +-------+ + + | | 2022-11-22 | [facility] | 102 | (missing) | (missing) | | (unavailable | 12: [...] (missing) | (missing) | | (unavailable | 12: [...] (missing) | | (unavailable | 21:48:07 | [facility] | | | | | [...] 1406 | + + + + + +--------+ [...] 1409 | + + + + + +------+ + + | | 2023-01-04 | [facility] | 99 | (missing) | (missing) | | (unavailable | 18:18:07 | [facility] | | | + + + +------+ + + + + | Result panel 1410 | + + + + + +------+ + + | | 2023-01-04 | [facility] | 27 | (missing) | (missing) | | (unavailable | 18:18:07 | [facility] | | | + + + +------+ + + + + | Result panel 1411 | + + + + + +--------+ + + | | 2023-01-04 | [facility] | 14.5 | (missing) | (missing) | | (unavailable | 18:18:07 | [facility] | | | + + + +--------+ + + + + | Result panel 1412 | + + + + + +--------+---------+ + | | 2023-01-04 | [facility] | 10.5 | mg/dL | (missing) | | (unavailable | 18:18:07 | [facility] | | | + + + +--------+---------+ + + + | Result panel 1413 | + + + + + +-------+ [...] 1416 | + + + + + +--------+ + + | | 2023-01-04 | [facility] | 0.93 | (missing) | (missing) | | (unavailable | 18:18:07 | [facility] | | | + + + +--------+ + + + + | Result panel 1417 | + + + + + +--------+ + + | | 2023-01-04 | [facility] | 25.7 | (missing) | (missing) | | (unavailable | 18:18:07 [facility] | | | + + + +--------+ + + + + | Result panel 1418 | + + + + + +-------+ + + | | 2023-01-04 | [facility] | 0.2 | (missing) | (missing) | | (unavailable | 18:18:07 [facility] | | | + + + +-------+ + + + + | Result panel 1419 | + + + + + +------+ + + | | 2023-01-04 | [facility] | 25 | (missing) | (missing) | | (unavailable | 18:18:07 [facility] | | | + + + +------+ + + + + | Result panel 1420 | + + + + + +------+ [...] 1422 | + + + + + +------+ [...] 1424 | + + + + + +--------+ + + | | 2023-01-04 | [facility] | 5.34 | (missing) | (missing) | | (unavailable | 18:18:07 [facility] | | | + + + +--------+ + + + + | Result panel 1425 | + + + + + +--------+ + + | | 2023-01-04 | [facility] | 16.4 | (missing) | (missing) | | (unavailable | 18:18:07 [facility] | | | + + + +--------+ + + + + | Result panel 1426 | + + + + + +--------+ + + | | 2023-01-04 | [facility] | 49.2 | (missing) | (missing) | | (unavailable | 18:18:07 [facility] | | | + + + +--------+ + + + + | Result panel 1427 | + + + + + +--------+ + + | | 2023-01-04 | [facility] | 92.2 | (missing) | (missing) | | (unavailable | 18:18:07 [facility] | | | + + + +--------+ + + + + | Result panel 1428 | + + + + + +-------+ [...] 1432 | + + + + + +-------+ [...] 1435 | + + + + + +-------+ + + | | 2023-01-04 | [facility] | 5.0 | (missing) | (missing) | | (unavailable | 18:18:07 [facility] | | | + + + +-------+ + + + + | Result panel 1436 | + + + + + +-------+ [...] 1438 | + + + + + +-------+---------+ + | | 2023-01-04 | [facility] | 230 | mg/dL | (missing) | | (unavailable | 18:18:07 [facility] | | | + + + +-------+---------+ + + + | Result panel 1439 | + + + + + +-------+ + + | | 2023-01-04 | [facility] | 1.0 | (missing) | (missing) | | (unavailable | 18:18:07 [facility] | | | + + + +-------+ + + + + | Result panel 1440 | + + + + + +------+---------+ + | | 2023-01-04 | [facility] | 21 | mg/dL | (missing) | | (unavailable | 18:18:07 [facility] | | | + + + +------+---------+ + + + | Result panel 1441 | + + + + + +--------+---------+ + | | 2023-01-04 | [facility] | 1.17 | mg/dL | (missing) | | (unavailable | 18:18:07 [facility] | | | + + + +--------+---------+ + + + | Result panel 1442 | + + + + + +------+ + + | | 2023-01-04 | [facility] | 56 | (missing) | (missing) | | (unavailable | 18:18:07 [facility] | | | + + + +------+ + + + + | Result panel 1443 | + + + + + +---------+ + + | | 2023-01-04 | [facility] | 17.94 | (missing) | (missing) | | (unavailable | 18:18:07 [facility] | | | + + + +---------+ + + + + | Result panel 1444 | + + + + + +-------+ + + | | 2023-01-04 | [facility] | 136 | (missing) | (missing) | | (unavailable | 18:18:07 [facility] | | | + + + +-------+ + + + + | Result panel 1445 | + + + + + +-------+ + + | | 2023-01-04 | [facility] | 4.5 | (missing) | (missing) | | (unavailable | 18:18:07 [facility] | | | + + + +-------+ + + + + | Result panel 1446 [...] 1447 | + + + + + +------+ + + | | 2023-01-04 | [facility] | 27 | (missing) | (missing) | | (unavailable | 18:18:07 [facility] | | | + + + +------+ + + + + | Result panel 1448 | + + + + + +--------+ + + | | 2023-01-04 | [facility] | 14.5 | (missing) | (missing) | | (unavailable | 18:18:07 [facility] | | | + + + +--------+ + + + + | Result panel 1449 | + + + + + +--------+---------+ + | | 2023-01-04 | [facility] | 10.5 | mg/dL | (missing) | | (unavailable | 18:18:07 [facility] | | | + + + +--------+---------+ + + + | Result panel 1450 | + + + + + +-------+ + + | | 2023-01-04 | [facility] | 1.8 | (missing) | (missing) | | (unavailable | 18:18:07 [facility] | | | + + + +-------+ + + + + | Result panel 1451 | + + + + + +-------+ + + | | 2023-01-04 | [facility] | 7.7 | (missing) | (missing) | | (unavailable | 18:18:07 [facility] | | | + + + +-------+ + + + + | Result panel 1452 | + + + + + +-------+ + + | | 2023-01-04 | [facility] | 3.7 | (missing) | (missing) | | (unavailable | 18:18:07 [facility] | | | + + + +-------+ + + + + | Result panel 1453 | + + + + + +-------+ + + | | 2023-01-04 | [facility] | 4.0 | (missing) | (missing) | | (unavailable | 18:18:07 [facility] | | | + + + +-------+ + + + + | Result panel 1454 | + + + + + +--------+ [...] 1456 | + + + + + +------+ + + | | 2023-01-04 | [facility] | 25 | (missing) | (missing) | | (unavailable | 18:18:07 [facility] | | | + + + +------+ + + + + | Result panel 1457 | + + + + + +------+ [...] 1460 | + + + + + +--------+ + + | | 2023-01-04 | [facility] | 16.6 | (missing) | (missing) | | (unavailable | 18:18:07 [facility] | | | + + + +--------+ + + + + | Result panel 1461 | + + + + + +-------+---------+ + | | 2023-01-04 | [facility] | 230 | mg/dL | (missing) | | (unavailable | 18:18:07 [facility] | | | + + + +-------+---------+ + + + | Result panel 1462 | + + + + + +--------+ [...] 1469 | + + + + + +-------+ [...] 1471 | + + + + + +--------+ + + | | 2023-01-04 | [facility] | 25.7 | (missing) | (missing) | | (unavailable | 18:18:07 [facility] | | | + + + +--------+ + + + + | Result panel 1472 | + + + + + +------+---------+ + | | 2023-01-04 | [facility] | 21 | mg/dL | (missing) | | (unavailable | 18:18:07 [facility] | | | + + + +------+---------+ + + + | Result panel 1473 | + + + + + +-------+ [...] 1476 | + + + + + +-------+---------+ + | | 2023-01-04 | [facility] | 230 | mg/dL | (missing) | | (unavailable | 18:18:07 [facility] | | | + + + +-------+---------+ + + + | Result panel 1477 | + + + + + +------+---------+ + | | 2023-01-04 | [facility] | 21 | mg/dL | (missing) | | (unavailable | 18:18:07 [facility] | | | + + + +------+---------+ + + + | Result panel 1478 | + + + + + +--------+---------+ + | | 2023-01-04 | [facility] | 1.17 | mg/dL | (missing) | | (unavailable | 18:18:07 [facility] | | | + + + +--------+---------+ + + + | Result panel 1479 | + + + + + +------+ + + | | 2023-01-04 | [facility] | 56 | (missing) | (missing) | | (unavailable | 18:18:07 [facility] | | | + + + +------+ + + + + | Result panel 1480 | + + + + + +---------+ + + | | 2023-01-04 | [facility] | 17.94 | (missing) | (missing) | | (unavailable | 18:18:07 [facility] | | | + + + +---------+ + + + + | Result panel 1481 | + + + + + +-------+ [...] 1483 | + + + + + +--------+---------+ + | | 2023-01-04 | [facility] | 1.17 | mg/dL | (missing) | | (unavailable | 18:18:07 [facility] | | | + + + +--------+---------+ + + + | Result panel 1484 [...] 1495 | + + + + + +------+ + + | | 2023-01-04 | [facility] | 46 | (missing) | (missing) | | (unavailable | 18:18:07 [facility] | | | + + + +------+ + + + + | Result panel 1496 | + + + + + +-------+ + + | | 2023-01-04 | [facility] | 141 | (missing) | (missing) | | (unavailable | 18:18:07 [facility] | | | + + + +-------+ + + + + | Result panel 1497 | + + + + + +------+ + + | | 2023-01-04 | [facility] | 74 | (missing) | (missing) | | (unavailable | 18:18:07 [facility] | | | + + + +------+ + + + + | Result panel 1498 | + + + + + +---------+ [...] 1500 | + + + + + +-------+ + + | | 2023-01-04 | [facility] | 136 | (missing) | (missing) | | (unavailable | 18:18:07 [facility] | | | + + + +-------+ + + + + | Result panel 1501 | + + + + + +-------+ + + | | 2023-01-04 | [facility] | 4.5 | (missing) | (missing) | | (unavailable | 18:18:07 [facility] | | | + + + +-------+ + + + + | Result panel 1502 | + + + + + +------+ + + | | 2023-01-04 | [facility] | 99 | (missing) | (missing) | | (unavailable | 18:18:07 [facility] | | | + + + +------+ + + + + | Result panel 1503 | + + + + + +------+ [...] 1505 | + + + + + +--------+---------+ + | | 2023-01-04 | [facility] | 10.5 | mg/dL | (missing) | | (unavailable | 18:18:07 [facility] | | | + + + +--------+---------+ + + + | Result panel 1506 | + + + + + +-------+ + + | | 2023-01-04 | [facility] | 7.7 | (missing) | (missing) | | (unavailable | 18:18:07 [facility] | | | + + + +-------+ + + + + | Result panel 1507 | + + + + + +-------+ + + | | 2023-01-04 | [facility] | 3.7 | (missing) | (missing) | | (unavailable | 18:18:07 [facility] | | | + + + +-------+ + + + + | Result panel 1508 | + + + + + +-------+ + + | | 2023-01-04 | [facility] | 4.0 | (missing) | (missing) | | (unavailable | 18:18:07 [facility] | | | + + + +-------+ + + + + | Result panel 1509 | + + + + + +--------+ + + | | 2023-01-04 | [facility] | 0.93 | (missing) | (missing) | | (unavailable | 18:18:07 [facility] | | | + + + +--------+ + + + + | Result panel 1510 | + + + + + +--------+ + + | | 2023-01-04 | [facility] | 16.4 | (missing) | (missing) | | (unavailable | 18:18:07 [facility] | | | + + + +--------+ + + + + | Result panel 1511 | + + + + + +-------+ + + | | 2023-01-04 | [facility] | 0.2 | (missing) | (missing) | | (unavailable | 18:18:07 [facility] | | | + + + +-------+ + + + + | Result panel 1512 | + + + + + +------+ + + | | 2023-01-04 | [facility] | 25 | (missing) | (missing) | | (unavailable | 18:18:07 [facility] | | | + + + +------+ + + + + | Result panel 1513 | + + + + + +------+ + + | | 2023-01-04 | [facility] | 46 | (missing) | (missing) | | (unavailable | 18:18:07 [facility] | | | + + + +------+ + + + + | Result panel 1514 | + + + + + +-------+ + + | | 2023-01-04 | [facility] | 141 | (missing) | (missing) | | (unavailable | 18:18:07 [facility] | | | + + + +-------+ + + + + | Result panel 1515 | + + + + + +------+ + + | | 2023-01-04 | [facility] | 74 | (missing) | (missing) | | (unavailable | 18:18:07 [facility] | | | + + + +------+ + + + + | Result panel 1516 | + + + + + +--------+ + + | | 2023-01-04 | [facility] | 49.2 | (missing) | (missing) | | (unavailable | 18:18:07 [facility] | | | + + + +--------+ + + + + | Result panel 1517 | + + + + + +--------+ + + | | 2023-01-04 | [facility] | 92.2 | (missing) | (missing) | | (unavailable | 18:18:07 [facility] | | | + + + +--------+ + + + + | Result panel 1518 | + + + + + +--------+ + + | | 2023-01-04 | [facility] | 30.7 | (missing) | (missing) | | (unavailable | 18:18:07 [facility] | | | + + + +--------+ + + + + | Result panel 1519 | + + + + + +--------+ + + | | 2023-01-04 | [facility] | 33.3 | (missing) | (missing) | | (unavailable | 18:18:07 [facility] | | | + + + +--------+ + + + + | Result panel 1520 | + + + + + +--------+ + + | | 2023-01-04 | [facility] | 14.1 | (missing) | (missing) | | (unavailable | 18:18:07 [facility] | | | + + + +--------+ + + + + | Result panel 1521 | + + + + + +--------+ + + | | 2023-01-04 | [facility] | 16.6 | (missing) | (missing) | | (unavailable | 18:18:07 [facility] | | | + + + +--------+ + + + + | Result panel 1522 | + + + + + +--------+ + + | | 2023-01-04 | [facility] | 5.34 | (missing) | (missing) | | (unavailable | 18:18:07 [facility] | | | + + + +--------+ + + + + | Result panel 1523 | + + + + + +--------+ + + | | 2023-01-04 | [facility] | 16.4 | (missing) | (missing) | | (unavailable | 18:18:07 [facility] | | | + + + +--------+ + + + + | Result panel 1524 | + + + + + +--------+ + + | | 2023-01-04 | [facility] | 49.2 | (missing) | (missing) | | (unavailable | 18:18:07 [facility] | | | | + + + +--------+ + + + + | Result panel 1525 | + + + + + +--------+ + + | | 2023-01-04 | [facility] | 92.2 | (missing) | (missing) | | (unavailable | 18:18:07 [facility] | | | | + + + +--------+ + + + + | Result panel 1526 | + + + + + +--------+ [...] + + + + | Result panel 1528 | + + + + + +--------+ + + | | 2023-01-04 | [facility] | 14.1 | (missing) | (missing) | | (unavailable | 18:18:07 [facility] | | | | + + + +--------+ + + + + | Result panel 1529 | + + + + + +-------+ + + | | 2023-01-04 | [facility] | 366 | (missing) | (missing) | | (unavailable | 18:18:07 [facility] | | | | + + + +-------+ + + + + | Result panel 1530 | + + + + + +-------+ + + | | 2023-01-04 | [facility] | 366 | (missing) | (missing) | | (unavailable | 18:18:07 [facility] | | | | + + + +-------+ + + + + | Result panel 1531 | + + + + + +--------+ + + | | 2023-01-04 | [facility] | 66.5 | (missing) | (missing) | | (unavailable | 18:18:07 [facility] | | | | + + + +--------+ + + + + | Result panel 1532 | + + + + + +--------+ + + | | 2023-01-04 | [facility] | 25.7 | (missing) | (missing) | | (unavailable | [facility]:18:07 [facility] | | | | + + + +--------+ + + + + | Result panel 1533 | + + + + + +-------+ + + | | 2023-01-04 | [facility] | 5.0 | (missing) | (missing) | | (unavailable | [facility]:18:07 [facility] | | | | + + + +-------+ + + + + | Result panel 1534 | + + + + + +-------+ + + | | 2023-01-04 | [facility] | 1.0 | (missing) | (missing) | | (unavailable | [facility]:18:07 [facility] | | | | + + + +-------+ + + + + | Result panel 1535 | + + + + + +-------+ + + | | 2023-01-04 | [facility] | 1.8 | (missing) | (missing) | | (unavailable | [facility]18:07 [facility] | | | | + + + +-------+ + + + + | Result panel 1536 | + + + + + +-------+---------+ + | | 2023-01-04 | [facility] | 230 | mg/dL | (missing) | | (unavailable | 18:18:07 [facility] | | | | + + + +-------+---------+ + + + | Result panel 1537 | + + + + + +------+---------+ + | | 2023-01-04 | [facility] | 21 | mg/dL | (missing) | | (unavailable | [facility]:18:07 [facility] | | | | + + + +------+---------+ + + + | Result panel 1538 | + + + + + +--------+---------+ + | | 2023-01-04 | [facility] | 1.17 | mg/dL | (missing) | | (unavailable | [facility]:18:07 [facility] | | | | + + + +--------+---------+ + + + | Result panel 1539 | + + + + + +------+ + + | | 2023-01-04 | [facility] | 56 | (missing) | (missing) | | (unavailable | [facility]:18:07 [facility] | | | | + + + +------+ + + + + | Result panel 1540 | + + + + + +---------+ + + | | 2023-01-04 | [facility] | 17.94 | (missing) | (missing) | | (unavailable | [facility]:18:07 [facility] | | | | + + + +---------+ + + + + | Result panel 1541 | + + + + + + + + + | | 2023-01-17 | [facility] | NEGATIVE | (missing) | (missing) | | (unavailable | 10:25:07 | [facility] | | | | + + + + + + + + + | Result panel 1542 | + + + + + + + + + | | 2023-01-17 | [facility] | NEGATIVE | (missing) | (missing) | | (unavailable | 10:25:07 | [facility] | | | | + + + + + + + + + | Result panel 1543 | + + + + + + + + + | | 2023-01-17 | [facility] | NEGATIVE | (missing) | (missing) | | (unavailable | 10:25:07 | [facility] | | | | + + + + + + + + + | Result panel 1544 | + + + + + + + + + | | 2023-01-17 | [facility] | NEGATIVE | (missing) | (missing) | | (unavailable | 10:25:07 | [facility] | | | | + + + + + + + + + | Result panel 1545 | + + + + + + + + + | | 2023-01-17 | [facility] | NEGATIVE | (missing) | (missing) | | (unavailable | 10:25:07 | [facility] | | | | + + + + + + + + + | Result panel 1546 | + + + + + + + + + | | 2023-01-17 | [facility] | NEGATIVE | (missing) | (missing) | | (unavailable | 10:25:07 | [facility] | | | | + + + + + + + + + | Result panel 1547 | + + + + + + + + + | | 2023-01-17 | [facility] | NEGATIVE | (missing) | (missing) | | (unavailable | 10:25:07 | [facility] | | | + + + + + + + + + | Result panel 1548 | + + + + + + + + + | | 2023-01-17 | [facility] | NEGATIVE | (missing) | (missing) | | (unavailable | 10:25:07 | [facility] | | | + + + + + + + + + | Result panel 1549 | + + + + + + + + + | | 2023-01-17 | [facility] | SQUAMOUS 1+ | (missing) | (missing) | | (unavailable | 11:09:07 | [facility] | | | + + + + + + + + + | Result panel 1550 | + + + + + + + + + | | 2023-01-17 | [facility] | ESCHERICHIA | (missing) | (missing) | | (unavailable | 11:55:07 | [facility] COLI [facility] | | | | + + + + + + + + + | Result panel 1551 | + + + + + + + + + | | 2023-01-17 | [facility] | YELLOW | (missing) | (missing) | | (unavailable | 11:55:07 | [facility] | | | + + + + + + + + + | Result panel 1552 | + + + + + +---------+ + + | | 2023-01-17 | [facility] | CLEAR | (missing) | (missing) | | (unavailable | 11:55:07 | [facility] | | | | + + + +---------+ + + + + | Result panel 1553 | + + + + + + + + + | | 2023-01-17 | [facility] | MODERATE | (missing) | (missing) | | (unavailable | 11:55:07 | [facility] | | | | + + + + + + + + + | Result panel 1554 | + + + + + + + + + | | 2023-01-17 | [facility] | NEGATIVE | (missing) | (missing) | | (unavailable | 11:55:07 | [facility] | | | | + + + + + + + + + | Result panel 1555 | + + + + + + + + + | | 2023-01-17 | [facility] | NEGATIVE | (missing) | (missing) | | (unavailable | 11:55:07 | [facility] | | | | + + + + + + + + + | Result panel 1556 | + + + + + + + + + | | 2023-01-17 | [facility] | >1.030 | (missing) | (missing) | | (unavailable | 11:55:07 | [facility] | | | | + + + + + + + + + | Result panel 1557 | + + + + + + + + + | | 2023-01-17 | [facility] | NEGATIVE | (missing) | (missing) | | (unavailable | 11:55:07 | [facility] | | | | + + + + + + + + + | Result panel 1558 | + + + + + +-------+ + + | | 2023-01-17 | [facility] | 6.5 | (missing) | (missing) | | (unavailable | 11:55:07 | [facility] | | | | + + + +-------+ + + + + | Result panel 1559 | + + + + + +--------+ + + | | 2023-01-17 | [facility] | >300 | (missing) | (missing) | | (unavailable | 11:55:07 | [facility] | | | + + + +--------+ + + + + | Result panel 1560 | + + + + + +-------+ + + | | 2023-01-17 | [facility] | 1.0 | (missing) | (missing) | | (unavailable | 11:55:07 | [facility] | | | + + + +-------+ + + + + | Result panel 1561 | + + + + + + + + + | | 2023-01-17 | [facility] | POSITIVE | (missing) | (missing) | | (unavailable | 11:55:07 | [facility] | | | | + + + + + + + + + | Result panel 1562 | + + + + + + + + + | | 2023-01-17 | [facility] | NEGATIVE | (missing) | (missing) | | (unavailable | 11:55:07 | [facility] | | | | + + + + + + + + + | Result panel 1563 | + + + + + +-------+ + + | | 2023-01-17 | [facility] | 0-1 | (missing) | (missing) | | (unavailable | 11:55:07 | [facility] | | | | + + + +-------+ + + + + | Result panel 1564 | + + + + + +-------+ + + | | 2023-01-17 | [facility] | 4-6 | (missing) | (missing) | | (unavailable | 11:55:07 | [facility] | | | | + + + +-------+ + + + + | Result panel 1565 | + + + + + +------+ + + | | 2023-01-17 | [facility] | 4+ | (missing) | (missing) | | (unavailable | 11:55:07 | [facility] | | | | + + + +------+ + + + + | Result panel 1566 | + + + + + +-------+ + + | | 2023-01-17 | [facility] | Yes | (missing) | (missing) | | (unavailable | 11:55:07 | [facility] | | | | + + + +-------+ + + + + | Result panel 1567 | + + + + + + + + + | | 2023-02-02 | [facility] | YELLOW | (missing) | (missing) | | (unavailable | 10:58:07 | [facility] | | | | + + + + + + + + + | Result panel 1568 | + + + + + +---------+ + + | | 2023-02-02 | [facility] | CLEAR | (missing) | (missing) | | (unavailable | 10:58:07 | [facility] | | | | + + + +---------+ + + + + | Result panel 1569 | + + + + + + + + + | | 2023-02-02 | [facility] | MODERATE | (missing) | (missing) | | (unavailable | 10:58:07 | [facility] | | | | + + + + + + + + + | Result panel 1570 | + + + + + + + + + | | 2023-02-02 | [facility] | NEGATIVE | (missing) | (missing) | | (unavailable | 10:58:07 | [facility] | | | | + + + + + + + + + | Result panel 1571 | + + + + + + + + + | | 2023-02-02 | [facility] | NEGATIVE | (missing) | (missing) | | (unavailable | 10:58:07 | [facility] | | | | + + + + + + + + + | Result panel 1572 | + + + + + +---------+ + + | | 2023-02-02 | [facility] | 1.025 | (missing) | (missing) | | (unavailable | 10:58:07 | [facility] | | | | + + + +---------+ + + + + | Result panel 1573 | + + + + + + + + + | | 2023-02-02 | [facility] | TRACE-I | (missing) | (missing) | | (unavailable | 10:58:07 | [facility] | | | | + + + + + + + + + | Result panel 1574 | + + + + + +-------+ + + | | 2023-02-02 | [facility] | 6.0 | (missing) | (missing) | | (unavailable | 10:58:07 | [facility] | | | | + + + +-------+ + + + + | Result panel 1575 | + + + + + +-------+ + + | | 2023-02-02 | [facility] | 100 | (missing) | (missing) | | (unavailable | 10:58:07 | [facility] | | | | + + + +-------+ + + + + | Result panel 1576 | + + + + + + + + + | | 2023-02-02 | [facility] | NORMAL | (missing) | (missing) | | (unavailable | 10:58:07 | [facility] | | | | + + + + + + + + + | Result panel 1577 | + + + + + + + + + | | 2023-02-02 | [facility] | POSITIVE | (missing) | (missing) | | (unavailable | 10:58:07 | [facility] | | | | + + + + + + + + + | Result panel 1578 | + + + + + + + + + | | 2023-02-02 | [facility] | NEGATIVE | (missing) | (missing) | | (unavailable | 10:58:07 | [facility] | | | | + + + + + + + + + | Result panel 1579 | + + + + + +-------+ + + | | 2023-02-02 | [facility] | 4-6 | (missing) | (missing) | | (unavailable | 10:58:07 | [facility] | | | | + + + +-------+ + + + + | Result panel 1580 | + + + + + +-------+ + + | | 2023-02-02 | [facility] | 2-3 | (missing) | (missing) | | (unavailable | 10:58:07 | [facility] | | | | + + + +-------+ + + + + | Result panel 1581 | + + + + + + + + + | | 2023-02-02 | [facility] | SQUAMOUS 1+ | (missing) | (missing) | | (unavailable | 10:58:07 | [facility] | | | | + + + + + + + + + | Result panel 1582 | + + + + + + + + + | | 2023-02-02 | [facility] | NONE SEEN | (missing) | (missing) | | (unavailable | 10:58:07 [facility] | | | | + + + + + + + + + | Result panel 1583 | + + + + + +------+ + + | | 2023-02-02 | [facility] | 4+ | (missing) | (missing) | | (unavailable | 10:58:07 [facility] | | | | + + + +------+ + + + + | Result panel 1584 | + + + + + + + + + | | 2023-02-02 | [facility] | NONE SEEN | (missing) | (missing) | | (unavailable | 10:58:07 | [facility] | | | | + + + + + + + + + | Result panel 1585 | + + + + + +-------+ + + | | 2023-02-02 | [facility] | Yes | (missing) | (missing) | | (unavailable | 10:58:07 | [facility] | | | | + + + +-------+ + + + + | Result panel 1586 | + + + + + +--------+ + + | | 2023-02-02 | [facility] | CATH | (missing) | (missing) | | (unavailable | 10:58:07 | [facility] | | | | [...] 273.38 | lb | + + + +---------+ | 2023-02-02 00:00 | BMI | 45.6 | kg/m2 | + + + +---------+ | 2023-02-02 00:00 | BP_diastolic | 81 | mmHg | + + + +---------+ | 2023-02-02 00:00 | BP_systolic | 153 | mmHg | + + + +---------+ | 2023-02-02 00:00 | heart_rate | 75 | /min | + + + +---------+ | 2023-02-02 00:00 | height_metric | 162.56 | cm | + + + +---------+ | 2023-02-02 00:00 | height_standard | 64 | in | + + + +---------+ | 2023-02-02 00:00 | o2_saturation | 95 | % | + + + +---------+ | 2023-02-02 00:00 | respiration_rate | 16 | /min | + + + +---------+ | 2023-02-02 00:00 | temperature_metric | 37.11 | C | | | | | | + + + +---------+ | 2023-02-02 00:00 | | 98.8 | F | | | temperature_standar | | | | | d | | | + + + +---------+ | 2023-02-02 00:00 | weight_metric | 120.5 | kg | + + + +---------+ | 2023-02-02 00:00 | weight_standard | 265.66 | lb | + + + +---------+"
--- OUTSIDE RECORDS SUMMARY | ~2023-02-05 | XMS | Continuity of Care Document ---
Demographics + + + | Address | [address] [address] | | | [place] [address] | + + + | Preferred Language | Unknown | + + + | Marital Status | | + + + | Jew Affiliation | Unknown | + + + | Race | White | + + + | Ethnic Group | Not or | + + + Author + + + | Author | [facility] | + + + | Organization | [facility] | + + + | Address | [address] | | | [place] [address] | + + + | Phone | | + + + Care Team Providers + + + + | Care Monument Letterer Name | Role | Phone | + [...] | 2022-01-14 00:00 | LURASIDONE HCL | [facility] | + + + + | 2022-01-26 00:00 | LURASIDONE HCL | [facility] | + + + + | 2022-02-04 00:00 | LURASIDONE HCL | [facility] | + + + + | 2022-02-28 00:00 | LURASIDONE HCL | [facility] | + + + + | 2022-03-04 00:00 | LURASIDONE HCL | [facility] | + + + + | 2022-03-07 00:00 | LURASIDONE HCL | [facility] | + + + + | 2022-03-31 00:00 | LURASIDONE HCL | [facility] | + + + + | 2022-04-02 00:00 | LURASIDONE HCL | [facility] | + + + + | 2022-04-13 00:00 | LURASIDONE HCL | [facility] | + + + + | 2022-04-29 00:00 | LURASIDONE HCL | [facility] | + + + + | 2022-05-13 00:00 | LURASIDONE HCL | [facility] | + + + + | 2022-05-13 00:00 | LURASIDONE HCL | [facility] | + + + + | 2022-06-04 00:00 | LURASIDONE HCL | [facility] | + + + + | 2022-06-06 00:00 | LURASIDONE HCL | [facility] | + + + + | 2022-06-28 00:00 | LURASIDONE HCL | [facility] | + + + + | 2022-07-25 00:00 | LURASIDONE HCL | [facility] | + + + + | 2022-07-31 00:00 | LURASIDONE HCL | [facility] | + + + + | 2022-08-01 00:00 | LURASIDONE HCL | [facility] | + + + + | 2022-08-19 00:00 | LURASIDONE HCL | [facility] | + + + + | 2022-09-01 00:00 | LURASIDONE HCL | [facility] | + + + + 2022-09-15 00:00 | LURASIDONE HCL | [facility] | + + + + | 2022-09-16 00:00 | LURASIDONE HCL | [facility] | + + + + | 2022-09-20 00:00 | LURASIDONE HCL | [facility] | + + + + | 2022-10-02 00:00 | LURASIDONE HCL | [facility] | + + + + | 2022-11-09 00:00 | LURASIDONE HCL | [facility] | + + + + | 2022-11-13 00:00 | LURASIDONE HCL | [facility] | + + + + | 2022-11-22 00:00 | LURASIDONE HCL | [facility] | + + + + | 2022-11-24 00:00 | LURASIDONE HCL | [facility] | + + + + | 2023-01-04 00:00 | LURASIDONE HCL | [facility] | + + + + | 2023-01-07 00:00 | LURASIDONE HCL | [facility] | + + + + | 2023-01-17 00:00 | LURASIDONE HCL | [facility] | + + + + | 2023-02-02 00:00 | LURASIDONE HCL | [facility] | + + + + | 2022-03-31 00:00 | LORAZEPAM | [facility] | + + + + | 2022-03-31 00:00 | LORAZEPAM | [facility] | + + + + | 2022-11-22 00:00 | ONDANSETRON | [facility] | + + + + | 2022-11-22 00:00 | ONDANSETRON | [facility] | + + + + | 2022-11-22 00:00 | ONDANSETRON | [facility] | + + + + | 2022-11-22 00:00 | ONDANSETRON | [facility] | + + + + | 2022-03-04 00:00 | OXYCODONE | [facility] | | | HCL/ACETAMINOPHEN | | + + + + | 2022-03-07 00:00 | OXYCODONE | [facility] | | | HCL/ACETAMINOPHEN | | + + + + | 2022-03-31 00:00 | OXYCODONE | [facility] | | | HCL/ACETAMINOPHEN | | + + + + | 2022-04-02 00:00 | OXYCODONE | [facility] | | | HCL/ACETAMINOPHEN | | + + + + | 2022-04-13 00:00 | OXYCODONE | [facility] | | | HCL/ACETAMINOPHEN | | + + + + | 2022-04-29 00:00 | OXYCODONE | [facility] | | | HCL/ACETAMINOPHEN | | + + + + | 2022-05-13 00:00 | OXYCODONE | [facility] | | | HCL/ACETAMINOPHEN | | + + + + | 2022-05-13 00:00 | OXYCODONE | [facility] | | | HCL/ACETAMINOPHEN | | + + + + | 2022-06-04 00:00 | OXYCODONE | [facility] | | | HCL/ACETAMINOPHEN | | + + + + | 2022-06-06 00:00 | OXYCODONE | [facility] | | | HCL/ACETAMINOPHEN | | + + + + | 2022-06-28 00:00 | OXYCODONE | [facility] | | | HCL/ACETAMINOPHEN | | + + + + | 2022-07-25 00:00 | OXYCODONE | [facility] | | | HCL/ACETAMINOPHEN | | + + + + | 2022-07-31 00:00 | OXYCODONE | [facility] | | | HCL/ACETAMINOPHEN | | + + + + | 2022-08-01 00:00 | OXYCODONE | [facility] | | | HCL/ACETAMINOPHEN | | + + + + | 2022-08-19 00:00 | OXYCODONE | [facility] | | | HCL/ACETAMINOPHEN | | + + + + | 2022-09-01 00:00 | OXYCODONE | [facility] | | | HCL/ACETAMINOPHEN | | + + + + | 2022-09-15 00:00 | OXYCODONE | [facility] | | | HCL/ACETAMINOPHEN | | + + + + | 2022-09-16 00:00 | OXYCODONE | [facility] | | | HCL/ACETAMINOPHEN | | + + + + | 2022-09-20 00:00 | OXYCODONE | [facility] | | | HCL/ACETAMINOPHEN | | + + + + | 2022-10-02 00:00 | OXYCODONE | [facility] | | | HCL/ACETAMINOPHEN | | + + + + | 2022-11-09 00:00 | OXYCODONE | [facility] | | | HCL/ACETAMINOPHEN | | + + + + | 2020-07-10 00:00 | OXYCODONE HCL | [facility] | + + + + | 2020-07-10 00:00 | OXYCODONE HCL | [facility] | + + + + | 2020-07-10 00:00 | OXYCODONE HCL | [facility] | + + + + | 2020-07-10 00:00 | OXYCODONE HCL | [facility] | + + + + | 2020-07-10 00:00 | OXYCODONE HCL | [facility] | + + + + | 2020-07-10 00:00 | OXYCODONE HCL | [facility] | + + + + | 2020-07-10 00:00 | OXYCODONE HCL | [facility] | + + + + | 2020-07-10 00:00 | OXYCODONE HCL | [facility] | + + + + | 2020-07-10 00:00 | OXYCODONE HCL | [facility] | + + + + | 2022-11-13 00:00 | OXYCODONE | [facility] | | | HCL/ACETAMINOPHEN | | + + + + | 2022-11-13 00:00 | OXYCODONE | [facility] | | | HCL/ACETAMINOPHEN | | + + + + | 2022-11-13 00:00 | OXYCODONE | [facility] | | | HCL/ACETAMINOPHEN | | + + + + | 2022-11-13 00:00 | OXYCODONE | [facility] | | | HCL/ACETAMINOPHEN | | + + + + | 2022-09-20 00:00 | OXYCODONE HCL | [facility] | + + + + | 2022-10-02 00:00 | OXYCODONE HCL | [facility] | + + + + | 2022-11-09 00:00 | OXYCODONE HCL | [facility] | + + + + | 2022-11-13 00:00 | OXYCODONE HCL | [facility] | + + + + | 2022-11-22 00:00 | OXYCODONE HCL | [facility] | + + + + | 2022-11-24 00:00 | OXYCODONE HCL | [facility] | + + + + | 2023-01-04 00:00 | OXYCODONE HCL | [facility] | + + + + | 2023-01-07 00:00 | OXYCODONE HCL | [facility] | + + + + | 2023-01-17 00:00 | OXYCODONE HCL | [facility] | + + + + | 2023-02-02 00:00 | OXYCODONE HCL | [facility] | + + + + | 2022-04-02 00:00 | GABAPENTIN | [facility] | + + + + | 2022-04-02 00:00 | GABAPENTIN | [facility] | + + + + | 2022-04-02 00:00 | GABAPENTIN | [facility] | + + + + | 2022-01-14 00:00 | LAMOTRIGINE | [facility] | + + + + | 2022-01-26 00:00 | LAMOTRIGINE | [facility] | + + + + | 2022-02-04 00:00 | LAMOTRIGINE | [facility] | + + + + | 2022-02-28 00:00 | LAMOTRIGINE | [facility] | + + + + | 2022-03-04 00:00 | LAMOTRIGINE | [facility] | + + + + | 2022-03-07 00:00 | LAMOTRIGINE | [facility] | + + + + | 2022-03-31 00:00 | LAMOTRIGINE | [facility] | + + + + | 2022-04-02 00:00 | LAMOTRIGINE | [facility] | + + + + | 2022-04-13 00:00 | LAMOTRIGINE | [facility] | + + + + | 2022-04-29 00:00 | LAMOTRIGINE | [facility] | + + + + | 2022-05-13 00:00 | LAMOTRIGINE | [facility] | + + + + | 2022-05-13 00:00 | LAMOTRIGINE | [facility] | + + + + | 2022-06-04 00:00 | LAMOTRIGINE | [facility] | + + + + | 2022-06-06 00:00 | LAMOTRIGINE | [facility] | + + + + | 2022-06-28 00:00 | LAMOTRIGINE | [facility] | + + + + | 2022-07-25 00:00 | LAMOTRIGINE | [facility] | + + + + | 2022-07-31 00:00 | LAMOTRIGINE | [facility] | + + + + | 2022-08-01 00:00 | LAMOTRIGINE | [facility] | + + + + | 2022-08-19 00:00 | LAMOTRIGINE | [facility] | + + + + | 2022-09-01 00:00 | LAMOTRIGINE | [facility] | + + + + | 2022-09-15 00:00 | LAMOTRIGINE | [facility] | + + + + | 2022-09-16 00:00 | LAMOTRIGINE | [facility] | + + + + | 2022-09-20 00:00 | LAMOTRIGINE | [facility] | + + + + | 2022-10-02 00:00 | LAMOTRIGINE | [facility] | + + + + | 2022-11-09 00:00 | LAMOTRIGINE | [facility] | + + + + | 2022-11-13 00:00 | LAMOTRIGINE | [facility] | + + + + | 2022-11-22 00:00 | LAMOTRIGINE | [facility] | + + + + | 2022-11-24 00:00 | LAMOTRIGINE | [facility] | + + + + | 2023-01-04 00:00 | LAMOTRIGINE | [facility] | + + + + | 2023-01-07 00:00 | LAMOTRIGINE | [facility] | + + + + | 2023-01-17 00:00 | LAMOTRIGINE | [facility] | + + + + | 2023-02-02 00:00 | LAMOTRIGINE | [facility] | + + + + | 2022-05-13 00:00 | METHYLPHENIDATE HCL | [facility] | + + + + | 2022-05-13 00:00 | METHYLPHENIDATE HCL | [facility] | + + + + | 2022-06-04 00:00 | METHYLPHENIDATE HCL | [facility] | + + + + | 2022-06-06 00:00 | METHYLPHENIDATE HCL | [facility] | + + + + | 2022-06-28 00:00 | METHYLPHENIDATE HCL | [facility] | + + + + | 2022-07-25 00:00 | METHYLPHENIDATE HCL | [facility] | + + + + | 2022-07-31 00:00 | METHYLPHENIDATE HCL | [facility] | + + + + | 2022-08-01 00:00 | METHYLPHENIDATE HCL | [facility] | + + + + | 2022-08-19 00:00 | METHYLPHENIDATE HCL | [facility] | + + + + | 2022-09-01 00:00 | METHYLPHENIDATE HCL | [facility] | + + + + | 2022-09-15 00:00 | METHYLPHENIDATE HCL | [facility] | + + + + | 2022-09-16 00:00 | METHYLPHENIDATE HCL | [facility] | + + + + | 2022-09-20 00:00 | METHYLPHENIDATE HCL | [facility] | + + + + | 2022-10-02 00:00 | METHYLPHENIDATE HCL | [facility] | + + + + | 2022-11-09 00:00 | METHYLPHENIDATE HCL | [facility] | + + + + | 2022-11-13 00:00 | METHYLPHENIDATE HCL | [facility] | + + + + | 2022-11-22 00:00 | METHYLPHENIDATE HCL | [facility] | + + + + | 2022-11-24 00:00 | METHYLPHENIDATE HCL | [facility] | + + + + | 2023-01-04 00:00 | METHYLPHENIDATE HCL | [facility] | + + + + | 2023-01-07 00:00 | METHYLPHENIDATE HCL | [facility] | + + + + | 2023-01-17 00:00 | METHYLPHENIDATE HCL | [facility] | + + + + | 2023-02-02 00:00 | METHYLPHENIDATE HCL | [facility] | + + + + | 2022-01-14 00:00 | METHYLPHENIDATE HCL | [facility] | + + + + | 2022-01-26 00:00 | METHYLPHENIDATE HCL | [facility] | + + + + | 2022-02-04 00:00 | METHYLPHENIDATE HCL | [facility] | + + + + | 2022-02-28 00:00 | METHYLPHENIDATE HCL | [facility] | + + + + | 2022-03-04 00:00 | METHYLPHENIDATE HCL | [facility] | + + + + | 2022-03-07 00:00 | METHYLPHENIDATE HCL | [facility] | + + + + | 2022-03-31 00:00 | METHYLPHENIDATE HCL | [facility] | + + + + | 2022-04-02 00:00 | METHYLPHENIDATE HCL | [facility] | + + + + | 2022-04-13 00:00 | METHYLPHENIDATE HCL | [facility] | + + + + | 2022-04-29 00:00 | METHYLPHENIDATE HCL | [facility] | + + + + | 2022-05-13 00:00 | METHYLPHENIDATE HCL | [facility] | + + + + | 2022-05-13 00:00 | METHYLPHENIDATE HCL | [facility] | + + + + | 2022-06-04 00:00 | METHYLPHENIDATE HCL | [facility] | + + + + | 2022-06-06 00:00 | METHYLPHENIDATE HCL | [facility] | + + + + | 2022-06-28 00:00 | METHYLPHENIDATE HCL | [facility] | + + + + | 2022-07-25 00:00 | METHYLPHENIDATE HCL | [facility] | + + + + | 2022-07-31 00:00 | METHYLPHENIDATE HCL | [facility] | + + + + | 2022-08-01 00:00 | METHYLPHENIDATE HCL | [facility] | + + + + | 2022-08-19 00:00 | METHYLPHENIDATE HCL | [facility] | + + + + | 2022-09-01 00:00 | METHYLPHENIDATE HCL | [facility] | + + + + | 2022-09-15 00:00 | METHYLPHENIDATE HCL | [facility] | + + + + | 2022-09-16 00:00 | METHYLPHENIDATE HCL | [facility] | + + + + | 2022-09-20 00:00 | METHYLPHENIDATE HCL | [facility] | + + + + | 2022-10-02 00:00 | METHYLPHENIDATE HCL | [facility] | + + + + | 2022-11-09 00:00 | METHYLPHENIDATE HCL | [facility] | + + + + | 2022-11-13 00:00 | METHYLPHENIDATE HCL | [facility] | + + + + | 2022-11-22 00:00 | METHYLPHENIDATE HCL | [facility] | + + + + | 2022-11-24 00:00 | METHYLPHENIDATE HCL | [facility] | + + + + | 2023-01-04 00:00 | METHYLPHENIDATE HCL | [facility] | + + + + | 2023-01-07 00:00 | METHYLPHENIDATE HCL | [facility] | + + + + | 2023-01-17 00:00 | METHYLPHENIDATE HCL | [facility] | + + + + | 2023-02-02 00:00 | METHYLPHENIDATE HCL | [facility] | + + + + | 2022-03-07 00:00 | PHENAZOPYRIDINE HCL | [facility] | + + + + | 2022-03-07 00:00 | PHENAZOPYRIDINE HCL | [facility] | + + + + | 2022-03-07 00:00 | PHENAZOPYRIDINE HCL | [facility] | + + + + | 2022-03-07 00:00 | PHENAZOPYRIDINE HCL | [facility] | + + + + | 2022-03-07 00:00 | PHENAZOPYRIDINE HCL | [facility] | + + + + | 2022-03-07 00:00 | PHENAZOPYRIDINE HCL | [facility] | + + + + | 2022-03-07 00:00 | PHENAZOPYRIDINE HCL | [facility] | + + + + | 2022-03-07 00:00 | PHENAZOPYRIDINE HCL | [facility] | + + + + | 2022-03-07 00:00 | PHENAZOPYRIDINE HCL | [facility] | + + + + | 2023-01-17 00:00 | PHENAZOPYRIDINE HCL | [facility] | + + + + | 2023-02-02 00:00 | DOXYCYCLINE HYCLATE | [facility] | + + + + | 2022-04-13 00:00 | clonAZEpam | [facility] | + + + + | 2022-04-29 00:00 | clonAZEpam | [facility] | + + + + | 2022-11-09 00:00 | | [facility] | | | SULFAMETHOXAZOLE/TRIMETHOPR | | | | IM | | + + + + | 2022-09-20 00:00 | ACETAMINOPHEN | [facility] | + + + + | 2022-10-02 00:00 | ACETAMINOPHEN | [facility] | + + + + | 2022-11-09 00:00 | ACETAMINOPHEN | [facility] | + + + + | 2022-11-13 00:00 | ACETAMINOPHEN | [facility] | + + + + | 2022-11-22 00:00 | ACETAMINOPHEN | [facility] | + + + + | 2022-11-24 00:00 | ACETAMINOPHEN | [facility] | + + + + | 2023-01-04 00:00 | ACETAMINOPHEN | [facility] | + + + + | 2023-01-07 00:00 | ACETAMINOPHEN | [facility] | + + + + | 2023-01-17 00:00 | ACETAMINOPHEN | [facility] | + + + + | 2023-02-02 00:00 | ACETAMINOPHEN | [facility] | + + + + | 2022-03-04 00:00 | CIPROFLOXACIN HCL | [facility] | + + + + | 2022-11-13 00:00 | CIPROFLOXACIN HCL | [facility] | + + + + | 2022-11-13 00:00 | CIPROFLOXACIN HCL | [facility] | + + + + | 2022-11-13 00:00 | CIPROFLOXACIN HCL | [facility] | + + + + | 2022-11-13 00:00 | CIPROFLOXACIN HCL | [facility] | + + + + | 2022-06-25 00:00 | METOCLOPRAMIDE HCL | [facility] | + + + + | 2022-07-25 00:00 | | [facility] | | | SULFAMETHOXAZOLE/TRIMETHOPR | | | | IM | | + + + + | 2022-07-25 00:00 | | [facility] | | | SULFAMETHOXAZOLE/TRIMETHOPR | | | | IM | | + + + + | 2022-07-25 00:00 | | [facility] | | | SULFAMETHOXAZOLE/TRIMETHOPR | | | | IM | | + + + + | 2022-07-25 00:00 | | [facility] | | | SULFAMETHOXAZOLE/TRIMETHOPR | | | | IM | | + + + + | 2022-07-25 00:00 | | [facility] | | | SULFAMETHOXAZOLE/TRIMETHOPR | | | | IM | | + + + + | 2022-07-25 00:00 | | [facility] | | | SULFAMETHOXAZOLE/TRIMETHOPR | | | | IM | | + + + + | 2022-06-25 00:00 | PANTOPRAZOLE SODIUM | [facility] | + + + + | 2022-01-14 00:00 | MIRTAZAPINE | [facility] | + + + + | 2022-01-26 00:00 | MIRTAZAPINE | [facility] | + + + + | 2022-02-04 00:00 | MIRTAZAPINE | [facility] | + + + + | 2022-02-28 00:00 | MIRTAZAPINE | [facility] | + + + + | 2022-03-04 00:00 | MIRTAZAPINE | [facility] | + + + + | 2022-03-07 00:00 | MIRTAZAPINE | [facility] | + + + + | 2022-03-31 00:00 | MIRTAZAPINE | [facility] | + + + + | 2022-04-02 00:00 | MIRTAZAPINE | [facility] | + + + + | 2022-04-13 00:00 | MIRTAZAPINE | [facility] | + + + + | 2022-04-29 00:00 | MIRTAZAPINE | [facility] | + + + + | 2022-05-13 00:00 | MIRTAZAPINE | [facility] | + + + + | 2022-05-13 00:00 | MIRTAZAPINE | [facility] | + + + + | 2022-06-04 00:00 | MIRTAZAPINE | [facility] | + + + + 2022-06-06 00:00 | MIRTAZAPINE | [facility] | + + + + | 2022-06-28 00:00 | MIRTAZAPINE | [facility] | + + + + | 2022-07-25 00:00 | MIRTAZAPINE | [facility] | + + + + | 2022-07-31 00:00 | MIRTAZAPINE | [facility] | + + + + | 2022-08-01 00:00 | MIRTAZAPINE | [facility] | + + + + | 2022-08-19 00:00 | MIRTAZAPINE | [facility] | + + + + | 2022-09-01 00:00 | MIRTAZAPINE | [facility] | + + + + | 2022-09-15 00:00 | MIRTAZAPINE | [facility] | + + + + | 2022-09-16 00:00 | MIRTAZAPINE | [facility] | + + + + | 2022-09-20 00:00 | MIRTAZAPINE | [facility] | + + + + | 2022-10-02 00:00 | MIRTAZAPINE | [facility] | + + + + | 2022-11-09 00:00 | MIRTAZAPINE | [facility] | + + + + | 2022-11-13 00:00 | MIRTAZAPINE | [facility] | + + + + | 2022-11-22 00:00 | MIRTAZAPINE | [facility] | + + + + | 2022-11-24 00:00 | MIRTAZAPINE | [facility] | + + + + | 2023-01-04 00:00 | MIRTAZAPINE | [facility] | + + + + | 2023-01-07 00:00 | MIRTAZAPINE | [facility] | + + + + | 2023-01-17 00:00 | MIRTAZAPINE | [facility] | + + + + | 2023-02-02 00:00 | MIRTAZAPINE | [facility] | + + + + | 2020-07-13 00:00 | ONDANSETRON | [facility] | + + + + | 2020-07-13 00:00 | ONDANSETRON | [facility] | + + + + | 2020-07-13 00:00 | ONDANSETRON | [facility] | + + + + | 2020-07-13 00:00 | ONDANSETRON | [facility] | + + + + | 2020-07-13 00:00 | ONDANSETRON | [facility] | + + + + | 2020-07-13 00:00 | ONDANSETRON | [facility] | + + + + | 2020-07-13 00:00 | ONDANSETRON | [facility] | + + + + | 2020-07-13 00:00 | ONDANSETRON | [facility] | + + + + | 2020-07-13 00:00 | ONDANSETRON | [facility] | + + + + | 2022-04-02 00:00 | ONDANSETRON | [facility] | + + + + | 2022-04-02 00:00 | ONDANSETRON | [facility] | + + + + | 2022-04-02 00:00 | ONDANSETRON | [facility] | + + + + | 2022-04-02 00:00 | ONDANSETRON | [facility] | + + + + | 2022-04-02 00:00 | ONDANSETRON | [facility] | + + + + | 2022-04-02 00:00 | ONDANSETRON | [facility] | + + + + | 2022-04-02 00:00 | ONDANSETRON | [facility] | + + + + | 2022-04-02 00:00 | ONDANSETRON | [facility] | + + + + | 2022-04-02 00:00 | ONDANSETRON | [facility] | + + + + | 2022-11-13 00:00 | ONDANSETRON | [facility] | + + + + | 2022-11-13 00:00 | ONDANSETRON | [facility] | + + + + | 2022-11-13 00:00 | ONDANSETRON | [facility] | + + + + | 2022-11-13 00:00 | ONDANSETRON | [facility] | + + + + | 2023-02-02 00:00 | ONDANSETRON | [facility] | + + + + | 2020-07-06 00:00 | predniSONE | [facility] | + + + + | 2020-07-06 00:00 | predniSONE | [facility] | + + + + | 2020-07-06 00:00 | predniSONE | [facility] | + + + + | 2020-07-06 00:00 | predniSONE | [facility] | + + + + | 2020-07-06 00:00 | predniSONE | [facility] | + + + + | 2020-07-06 00:00 | predniSONE | [facility] | + + + + | 2020-07-06 00:00 | predniSONE | [facility] | + + + + | 2020-07-06 00:00 | predniSONE | [facility] | + + + + | 2020-07-06 00:00 | predniSONE | [facility] | + + + + | 2022-11-09 00:00 | AMOXICILLIN/POTASSIUM CLAV | [facility] | | | | | + + + + | 2022-01-14 00:00 | DULOXETINE HCL | [facility] | + + + + | 2022-01-26 00:00 | DULOXETINE HCL | [facility] | + + + + | 2022-02-04 00:00 | DULOXETINE HCL | [facility] | + + + + | 2022-02-28 00:00 | DULOXETINE HCL | [facility] | + + + + | 2022-03-04 00:00 | DULOXETINE HCL | [facility] | + + + + | 2022-03-07 00:00 | DULOXETINE HCL | [facility] | + + + + | 2022-03-31 00:00 | DULOXETINE HCL | [facility] | + + + + | 2022-04-02 00:00 | DULOXETINE HCL | [facility] | + + + + | 2022-04-13 00:00 | DULOXETINE HCL | [facility] | + + + + | 2022-04-29 00:00 | DULOXETINE HCL | [facility] | + + + + | 2022-05-13 00:00 | DULOXETINE HCL | [facility] | + + + + | 2022-05-13 00:00 | DULOXETINE HCL | [facility] | + + + + | 2022-06-04 00:00 | DULOXETINE HCL | [facility] | + + + + | 2022-06-06 00:00 | DULOXETINE HCL | [facility] | + + + + | 2022-06-28 00:00 | DULOXETINE HCL | [facility] | + + + + | 2022-07-25 00:00 | DULOXETINE HCL | [facility] | + + + + | 2022-07-31 00:00 | DULOXETINE HCL | [facility] | + + + + | 2022-08-01 00:00 | DULOXETINE HCL | [facility] | + + + + | 2022-08-19 00:00 | DULOXETINE HCL | [facility] | + + + + | 2022-09-01 00:00 | DULOXETINE HCL | [facility] | + + + + | 2022-09-15 00:00 | DULOXETINE HCL | [facility] | + + + + | 2022-09-16 00:00 | DULOXETINE HCL | [facility] | + + + + | 2022-09-20 00:00 | DULOXETINE HCL | [facility] | + + + + | 2022-10-02 00:00 | DULOXETINE HCL | [facility] | + + + + | 2022-11-09 00:00 | DULOXETINE HCL | [facility] | + + + + | 2022-11-13 00:00 | DULOXETINE HCL | [facility] | + + + + | 2022-11-22 00:00 | DULOXETINE HCL | [facility] | + + + + | 2022-11-24 00:00 | DULOXETINE HCL | [facility] | + + + + | 2023-01-04 00:00 | DULOXETINE HCL | [facility] | + + + + | 2023-01-07 00:00 | DULOXETINE HCL | [facility] | + + + + | 2023-01-17 00:00 | DULOXETINE HCL | [facility] | + + + + | 2023-02-02 00:00 | DULOXETINE HCL | [facility] | + + + + | 2022-05-13 00:00 | DULOXETINE HCL | [facility] | + + + + | 2022-05-13 00:00 | DULOXETINE HCL | [facility] | + + + + | 2022-06-04 00:00 | DULOXETINE HCL | [facility] | + + + + | 2022-06-06 00:00 | DULOXETINE HCL | [facility] | + + + + | 2022-06-28 00:00 | DULOXETINE HCL | [facility] | + + + + | 2022-07-25 00:00 | DULOXETINE HCL | [facility] | + + + + | 2022-07-31 00:00 | DULOXETINE HCL | [facility] | + + + + | 2022-08-01 00:00 | DULOXETINE HCL | [facility] | + + + + | 2022-09-20 00:00 | CLINDAMYCIN HCL | [facility] | + + + + | 2022-10-02 00:00 | CLINDAMYCIN HCL | [facility] [facility] | + + + + | 2022-11-09 00:00 | CLINDAMYCIN HCL | [facility] | + + + + | 2022-09-20 00:00 | Cholecalciferol (Vitamin | [facility] | | | D3) | | + + + + | 2022-10-02 00:00 | Cholecalciferol (Vitamin | [facility] | | | D3) | | + + + + | 2022-11-09 00:00 | Cholecalciferol (Vitamin | [facility] | | | D3) | | + + + + | 2022-11-13 00:00 | Cholecalciferol (Vitamin | [facility] | | | D3) | | + + + + | 2022-11-22 00:00 | Cholecalciferol (Vitamin | [facility] | | | D3) | | + + + + | 2022-11-24 00:00 | Cholecalciferol (Vitamin | [facility] | | | D3) | | + + + + | 2023-01-04 00:00 | Cholecalciferol (Vitamin | [facility] | | | D3) | | + + + + | 2023-01-07 00:00 | Cholecalciferol (Vitamin | [facility] | | | D3) | | + + + + | 2023-01-17 00:00 | Cholecalciferol (Vitamin | [facility] | | | D3) | | + + + + | 2023-02-02 00:00 | Cholecalciferol (Vitamin | [facility] | | | D3) | | + + + + | 2020-07-13 00:00 | AMOXICILLIN/POTASSIUM CLAV | [facility] | | | | | + + + + | 2020-07-13 00:00 | AMOXICILLIN/POTASSIUM CLAV | [facility] | | | | | + + + + | 2020-07-13 00:00 | AMOXICILLIN/POTASSIUM CLAV | [facility] | | | | | + + + + | 2020-07-13 00:00 | AMOXICILLIN/POTASSIUM CLAV | [facility] | | | | | + + + + | 2020-07-13 00:00 | AMOXICILLIN/POTASSIUM CLAV | [facility] | | | | | + + + + | 2020-07-13 00:00 | AMOXICILLIN/POTASSIUM CLAV | [facility] | | | | | + + + + | 2020-07-13 00:00 | AMOXICILLIN/POTASSIUM CLAV | [facility] | | | | | + + + + | 2020-07-13 00:00 | AMOXICILLIN/POTASSIUM CLAV | [facility] | | | | | + + + + | 2020-07-13 00:00 | AMOXICILLIN/POTASSIUM CLAV | [facility] | | | | | + + + + | 2020-10-15 00:00 | CYCLOBENZAPRINE HCL | [facility] | + + + + | 2020-10-15 00:00 | CYCLOBENZAPRINE HCL | [facility] | + + + + | 2020-10-15 00:00 | CYCLOBENZAPRINE HCL | [facility] | + + + + | 2020-10-15 00:00 | CYCLOBENZAPRINE HCL | [facility] | + + + + | 2020-10-15 00:00 | CYCLOBENZAPRINE HCL | [facility] | + + + + | 2020-10-15 00:00 | CYCLOBENZAPRINE HCL | [facility] | + + + + | 2020-10-15 00:00 | CYCLOBENZAPRINE HCL | [facility] | + + + + | 2020-10-15 00:00 | CYCLOBENZAPRINE HCL | [facility] | + + + + | 2020-10-15 00:00 | CYCLOBENZAPRINE HCL | [facility] | + + + + | 2020-07-13 00:00 | TRAMADOL HCL | [facility] | + + + + | 2020-07-13 00:00 | TRAMADOL HCL | [facility] | + + + + | 2020-07-13 00:00 | TRAMADOL HCL | [facility] | + + + + | 2020-07-13 00:00 | TRAMADOL HCL | [facility] | + + + + | 2020-07-13 00:00 | TRAMADOL HCL | [facility] | + + + + | 2020-07-13 00:00 | TRAMADOL HCL | [facility] | + + + + | 2020-07-13 00:00 | TRAMADOL HCL | [facility] | + + + + | 2020-07-13 00:00 | TRAMADOL HCL | [facility] | + + + + | 2020-07-13 00:00 | TRAMADOL HCL | [facility] | + + + + | 2020-07-08 00:00 | | [facility] | | | SULFAMETHOXAZOLE/TRIMETHOPR | | | | IM DS | | + + + + | 2020-07-08 00:00 | | [facility] | | | SULFAMETHOXAZOLE/TRIMETHOPR | | | | IM DS | | + + + + | 2020-07-08 00:00 | | [facility] | | | SULFAMETHOXAZOLE/TRIMETHOPR | | | | IM DS | | + + + + | 2020-07-08 00:00 | | [facility] | | | SULFAMETHOXAZOLE/TRIMETHOPR | | | | IM DS | | + + + + | 2020-07-08 00:00 | | [facility] | | | SULFAMETHOXAZOLE/TRIMETHOPR | | | | IM DS | | + + + + | 2020-07-08 00:00 | | [facility] | | | SULFAMETHOXAZOLE/TRIMETHOPR | | | | IM DS | | + + + + | 2020-07-08 00:00 | | [facility] | | | SULFAMETHOXAZOLE/TRIMETHOPR | | | | IM DS | | + + + + | 2020-07-08 00:00 | | [facility] | | | SULFAMETHOXAZOLE/TRIMETHOPR | | | | IM DS | | + + + + | 2020-07-08 00:00 | | [facility] | | | SULFAMETHOXAZOLE/TRIMETHOPR | | | | IM DS | | + + + + | 2022-03-07 00:00 | | [facility] | | | SULFAMETHOXAZOLE/TRIMETHOPR | | | | IM DS | | + + + + | 2022-03-07 00:00 | | [facility] | | | SULFAMETHOXAZOLE/TRIMETHOPR | | | | IM DS | | + + + + | 2022-03-07 00:00 | | [facility] | | | SULFAMETHOXAZOLE/TRIMETHOPR | | | | IM DS | | + + + + | 2022-03-07 00:00 | | [facility] | | | SULFAMETHOXAZOLE/TRIMETHOPR | | | | IM DS | | + + + + | 2022-03-07 00:00 | | [facility] | | | SULFAMETHOXAZOLE/TRIMETHOPR | | | | IM DS | | + + + + | 2022-03-07 00:00 | | [facility] | | | SULFAMETHOXAZOLE/TRIMETHOPR | | | | IM DS | | + + + + | 2022-03-07 00:00 | | [facility] | | | SULFAMETHOXAZOLE/TRIMETHOPR | | | | IM DS | | + + + + | 2022-03-07 00:00 | | [facility] | | | SULFAMETHOXAZOLE/TRIMETHOPR | | | | IM DS | | + + + + | 2022-03-07 00:00 | | [facility] | | | SULFAMETHOXAZOLE/TRIMETHOPR | | | | IM DS | | + + + + | 2022-08-01 00:00 | | [facility] | | | SULFAMETHOXAZOLE/TRIMETHOPR | | | | IM DS | | + + + + | 2022-08-01 00:00 | | [facility] | | | SULFAMETHOXAZOLE/TRIMETHOPR | | | | IM DS | | + + + + | 2022-08-01 00:00 | | [facility] | | | SULFAMETHOXAZOLE/TRIMETHOPR | | | | IM DS | | + + + + | 2022-08-01 00:00 | | [facility] | | | SULFAMETHOXAZOLE/TRIMETHOPR | | | | IM DS | | + + + + | 2022-08-01 00:00 | | [facility] | | | SULFAMETHOXAZOLE/TRIMETHOPR | | | | IM DS | | + + + + | 2022-03-04 00:00 | ZOLPIDEM TARTRATE | [facility] | + + + + | 2022-03-07 00:00 | ZOLPIDEM TARTRATE | [facility] | + + + + | 2022-03-31 00:00 | ZOLPIDEM TARTRATE | [facility] | + + + + | 2022-04-02 00:00 | ZOLPIDEM TARTRATE | [facility] | + + + + | 2022-04-13 00:00 | ZOLPIDEM TARTRATE | [facility] | + + + + | 2022-04-29 00:00 | ZOLPIDEM TARTRATE | [facility] | + + + + | 2022-05-13 00:00 | ZOLPIDEM TARTRATE | [facility] | + + + + | 2022-05-13 00:00 | ZOLPIDEM TARTRATE | [facility] | + + + + | 2022-06-04 00:00 | ZOLPIDEM TARTRATE | [facility] | + + + + | 2022-06-06 00:00 | ZOLPIDEM TARTRATE | [facility] | + + + + | 2022-06-28 00:00 | ZOLPIDEM TARTRATE | [facility] | + + + + | 2022-07-25 00:00 | ZOLPIDEM TARTRATE | [facility] | + + + + | 2022-07-31 00:00 | ZOLPIDEM TARTRATE | [facility] | + + + + | 2022-08-01 00:00 | ZOLPIDEM TARTRATE | [facility] | + + + + | 2022-08-19 00:00 | ZOLPIDEM TARTRATE | [facility] | + + + + | 2022-09-01 00:00 | ZOLPIDEM TARTRATE | [facility] | + + + + | 2022-09-15 00:00 | ZOLPIDEM TARTRATE | [facility] | + + + + | 2022-09-16 00:00 | ZOLPIDEM TARTRATE | [facility] | + + + + | 2022-09-20 00:00 | ZOLPIDEM TARTRATE | [facility] | + + + + | 2022-10-02 00:00 | ZOLPIDEM TARTRATE | [facility] | + + + + | 2022-11-09 00:00 | ZOLPIDEM TARTRATE | [facility] | + + + + | 2022-11-13 00:00 | ZOLPIDEM TARTRATE | [facility] | + + + + | 2022-11-22 00:00 | ZOLPIDEM TARTRATE | [facility] | + + + + | 2022-11-24 00:00 | ZOLPIDEM TARTRATE | [facility] | + + + + | 2023-01-04 00:00 | ZOLPIDEM TARTRATE | [facility] | + + + + | 2023-01-07 00:00 | ZOLPIDEM TARTRATE | [facility] | + + + + | 2023-01-17 00:00 | ZOLPIDEM TARTRATE | [facility] | + + + + | 2023-02-02 00:00 | ZOLPIDEM TARTRATE | [facility] | + + + + | 2022-03-04 00:00 | TRAZODONE HCL | [facility] | + + + + | 2022-03-07 00:00 | TRAZODONE HCL | [facility] | + + + + | 2022-03-31 00:00 | TRAZODONE HCL | [facility] | + + + + | 2022-04-02 00:00 | TRAZODONE HCL | [facility] | + + + + | 2022-04-13 00:00 | TRAZODONE HCL | [facility] | + + + + | 2022-04-29 00:00 | TRAZODONE HCL | [facility] | + + + + | 2022-05-13 00:00 | TRAZODONE HCL | [facility] | + + + + | 2022-05-13 00:00 | TRAZODONE HCL | [facility] | + + + + | 2022-06-04 00:00 | TRAZODONE HCL | [facility] | + + + + | 2022-06-06 00:00 | TRAZODONE HCL | [facility] | + + + + | 2022-06-28 00:00 | TRAZODONE HCL | [facility] | + + + + | 2022-07-25 00:00 | TRAZODONE HCL | [facility] | + + + + | 2022-07-31 00:00 | TRAZODONE HCL | [facility] | + + + + | 2022-08-01 00:00 | TRAZODONE HCL | [facility] | + + + + | 2022-08-19 00:00 | TRAZODONE HCL | [facility] | + + + + | 2022-09-01 00:00 | TRAZODONE HCL | [facility] | + + + + | 2022-09-15 00:00 | TRAZODONE HCL | [facility] | + + + + | 2022-09-16 00:00 | TRAZODONE HCL | [facility] | + + + + | 2022-09-20 00:00 | TRAZODONE HCL | [facility] | + + + + | 2022-10-02 00:00 | TRAZODONE HCL | [facility] | + + + + | 2022-11-09 00:00 | TRAZODONE HCL | [facility] | + + + + | 2022-11-13 00:00 | TRAZODONE HCL | [facility] | + + + + | 2022-11-22 00:00 | TRAZODONE HCL | [facility] | + + + + | 2022-11-24 00:00 | TRAZODONE HCL | [facility] | + + + + | 2023-01-04 00:00 | TRAZODONE HCL | [facility] | + + + + | 2023-01-07 00:00 | TRAZODONE HCL | [facility] | + + + + | 2023-01-17 00:00 | TRAZODONE HCL | [facility] | + + + + | 2023-02-02 00:00 | TRAZODONE HCL | [facility] | + + + + | 2020-07-08 00:00 | HYDROCODONE | [facility] | | | BIT/ACETAMINOPHEN | | + + + + | 2020-07-08 00:00 | HYDROCODONE | [facility] | | | BIT/ACETAMINOPHEN | | + + + + | 2020-07-08 00:00 | HYDROCODONE | [facility] | | | BIT/ACETAMINOPHEN | | + + + + | 2020-07-08 00:00 | HYDROCODONE | [facility] | | | BIT/ACETAMINOPHEN | | + + + + | 2020-07-08 00:00 | HYDROCODONE | [facility] | | | BIT/ACETAMINOPHEN | | + + + + | 2020-07-08 00:00 | HYDROCODONE | [facility] | | | BIT/ACETAMINOPHEN | | + + + + | 2020-07-08 00:00 | HYDROCODONE | [facility] | | | BIT/ACETAMINOPHEN | | + + + + | 2020-07-08 00:00 | HYDROCODONE | [facility] | | | BIT/ACETAMINOPHEN | | + + + + | 2020-07-08 00:00 | HY[facility]OCODONE | [facility] | | | BIT/ACETAMINOPHEN | | + + + + | 2022-11-22 00:00 | [facility]OCODONE | [facility] | | | BIT/ACETAMINOPHEN | | + + + + | 2022-11-22 00:00 | HYDROCODONE | [facility] | | | BIT/ACETAMINOPHEN | | + + + + | 2022-11-22 00:00 | HYDROCODONE | [facility] | | | BIT/ACETAMINOPHEN | | + + + + | 2022-11-22 00:00 | HYDROCODONE | [facility] | | | BIT/ACETAMINOPHEN | | + + + + | 2022-01-14 00:00 | ASENAPINE MALEATE | [facility] | + + + + | 2022-01-26 00:00 | ASENAPINE MALEATE | [facility] | + + + + | 2022-02-04 00:00 | ASENAPINE MALEATE | [facility] | + + + + | 2022-02-28 00:00 | ASENAPINE MALEATE | [facility] | + + + + | 2022-03-04 00:00 | ASENAPINE MALEATE | [facility] | + + + + | 2022-03-07 00:00 | ASENAPINE MALEATE | [facility] | + + + + | 2022-03-31 00:00 | ASENAPINE MALEATE | [facility] | + + + + | 2022-04-02 00:00 | ASENAPINE MALEATE | [facility] | + + + + | 2022-04-13 00:00 | ASENAPINE MALEATE | [facility] | + + + + | 2022-04-29 00:00 | ASENAPINE MALEATE | [facility] | + + + + | 2022-05-13 00:00 | ASENAPINE MALEATE | [facility] | + + + + | 2022-05-13 00:00 | ASENAPINE MALEATE | [facility] | + + + + | 2022-06-04 00:00 | ASENAPINE MALEATE | [facility] | + + + + | 2022-06-06 00:00 | ASENAPINE MALEATE | [facility] | + + + + | 2022-06-28 00:00 | ASENAPINE MALEATE | [facility] | + + + + | 2022-07-25 00:00 | ASENAPINE MALEATE | [facility] | + + + + | 2022-07-31 00:00 | ASENAPINE MALEATE | [facility] | + + + + | 2022-08-01 00:00 | ASENAPINE MALEATE | [facility] | + + + + | 2022-08-19 00:00 | ASENAPINE MALEATE | [facility] | + + + + | 2022-09-01 00:00 | ASENAPINE MALEATE | [facility] | + + + + | 2022-09-15 00:00 | ASENAPINE MALEATE | [facility] | + + + + | 2022-09-16 00:00 | ASENAPINE MALEATE | [facility] | + + + + | 2022-09-20 00:00 | ASENAPINE MALEATE | [facility] | + + + + | 2022-10-02 00:00 | ASENAPINE MALEATE | [facility] | + + + + | 2022-11-09 00:00 | ASENAPINE MALEATE | [facility] | + + + + | 2022-11-13 00:00 | ASENAPINE MALEATE | [facility] | + + + + | 2022-11-22 00:00 | ASENAPINE MALEATE | [facility] | + + + + | 2022-11-24 00:00 | ASENAPINE MALEATE | [facility] | + + + + | 2023-01-04 00:00 | ASENAPINE MALEATE | [facility] | + + + + | 2023-01-07 00:00 | ASENAPINE MALEATE | [facility] | + + + + | 2023-01-17 00:00 | ASENAPINE MALEATE | [facility] | + + + + | 2023-02-02 00:00 | ASENAPINE MALEATE | [facility] | + + + + | 2020-07-06 00:00 | MORPHINE SULFATE | [facility] | + + + + | 2020-07-06 00:00 | MORPHINE SULFATE | [facility] | + + + + | 2020-07-06 00:00 | MORPHINE SULFATE | [facility] | + + + + | 2020-07-06 00:00 | MORPHINE SULFATE | [facility] | + + + + | 2020-07-06 00:00 | MORPHINE SULFATE | [facility] | + + + + | 2020-07-06 00:00 | MORPHINE SULFATE | [facility] | + + + + | 2020-07-06 00:00 | MORPHINE SULFATE | [facility] | + + + + | 2020-07-06 00:00 | MORPHINE SULFATE | [facility] | + + + + | 2020-07-06 00:00 | MORPHINE SULFATE | [facility] | + + + + | 2022-05-13 00:00 | PROMETHAZINE HCL | [facility] | + + + + | 2022-05-13 00:00 | PROMETHAZINE HCL | [facility] | + + + + | 2022-06-04 00:00 | PROMETHAZINE HCL | [facility] | + + + + | 2022-06-06 00:00 | PROMETHAZINE HCL | [facility] | + + + + | 2022-06-28 00:00 | PROMETHAZINE HCL | [facility] | + + + + | 2022-07-25 00:00 | PROMETHAZINE HCL | [facility] | + + + + | 2022-07-31 00:00 | PROMETHAZINE HCL | [facility] | + + + + | 2022-08-01 00:00 | PROMETHAZINE HCL | [facility] | + + + + | 2022-08-19 00:00 | PROMETHAZINE HCL | [facility] | + + + + | 2022-09-01 00:00 | PROMETHAZINE HCL | [facility] | + + + + | 2022-09-15 00:00 | PROMETHAZINE HCL | [facility] | + + + + | 2022-09-16 00:00 | PROMETHAZINE HCL | [facility] | + + + + | 2022-09-20 00:00 | PROMETHAZINE HCL | [facility] | + + + + | 2022-10-02 00:00 | PROMETHAZINE HCL | [facility] | + + + + | 2022-11-09 00:00 | PROMETHAZINE HCL | [facility] | + + + + | 2022-11-13 00:00 | PROMETHAZINE HCL | [facility] | + + + + | 2022-11-22 00:00 | PROMETHAZINE HCL | [facility] | + + + + | 2022-11-24 00:00 | PROMETHAZINE HCL | [facility] | + + + + | 2023-01-04 00:00 | PROMETHAZINE HCL | [facility] | + + + + | 2023-01-07 00:00 | PROMETHAZINE HCL | [facility] | + + + + | 2023-01-17 00:00 | PROMETHAZINE HCL | [facility] | + + + + | 2023-02-02 00:00 | PROMETHAZINE HCL | [facility] | + + + + Problems + + + + | date | description | facility | + + + + | 2020-07-06 00:00 | 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 | | | disorder of lumbar spine | | + + + + | 2020-07-06 00:00 | Sciatica associated with | [facility] | | | disorder of lumbar spine | | + + + + | 2020-07-06 00:00 | Sciatica associated with | [facility] | | | disorder of lumbar spine | | + + + + | 2020-07-06 00:00 | Sciatica associated with | [facility] | | | disorder of lumbar spine | | + + + + | 2020-07-06 00:00 | Sciatica associated with | [facility] | | | disorder of lumbar spine | | + + + + | 2020-07-20 00:00 | Urinary tract infection | [facility] | + + + + | 2020-07-20 00:00 | Urinary tract infection | [facility] | + + + + | 2020-07-20 00:00 | Urinary tract infection | [facility] | + + + + | 2020-07-20 00:00 | Urinary tract infection | [facility] | + + + + | 2020-07-20 00:00 | Urinary tract infection | [facility] | + + + + | 2020-07-20 00:00 | Urinary tract infection | [facility] | + + + + | 2020-07-20 00:00 | Urinary tract infection | [facility] | + + + + | 2020-07-20 00:00 | Urinary tract infection | [facility] | + + + + | 2020-07-20 00:00 | Urinary tract infection | [facility] | + + + + | 2022-03-31 00:00 | Anxiety | [facility] | + + + + | 2022-03-31 00:00 | Anxiety | [facility] | + + + + | 2022-03-31 00:00 | Anxiety | [facility] | + + + + | 2022-03-31 00:00 | Anxiety | [facility] | + + + + | 2022-03-31 00:00 | Anxiety | [facility] | + + + + | 2022-03-31 00:00 | Anxiety | [facility] | + + + + | 2022-03-31 00:00 | Anxiety | [facility] | + + + + | 2022-03-31 00:00 | Anxiety | [facility] | + + + + | 2022-03-31 00:00 | Anxiety | [facility] | + + + + | 2022-03-31 00:00 | Grief | [facility] | + + + + | 2022-03-31 00:00 | Grief | [facility] | + + + + | 2022-03-31 00:00 | Grief | [facility] | + + + + | 2022-03-31 00:00 | Grief | [facility] | + + + + | 2022-03-31 00:00 | Grief | [facility] | + + + + | 2022-03-31 00:00 | Grief | [facility] | + + + + | 2022-03-31 00:00 | Grief | [facility] | + + + + | 2022-03-31 00:00 | Grief | [facility] | + + + + | 2022-03-31 00:00 | Grief | [facility] | + + + + | 2022-03-31 00:00 | Chest pain | [facility] | + + + + | 2022-03-31 00:00 | Chest pain | [facility] | + + + + | 2022-03-31 00:00 | Chest pain | [facility] | + + + + | 2022-03-31 00:00 | Chest pain | [facility] | + + + + | 2022-03-31 00:00 | Chest pain | [facility] | + + + + | 2022-03-31 00:00 | Chest pain | [facility] | + + + + | 2022-03-31 00:00 | Chest pain | [facility] | + + + + | 2022-03-31 00:00 | Chest pain | [facility] | + + + + | 2022-03-31 00:00 | Chest pain | [facility] | + + + + | 2022-04-02 00:00 | Chronic pain syndrome | [facility] | + + + + | 2022-04-02 00:00 | Chronic pain syndrome | [facility] | + + + + | 2022-04-02 00:00 | Chronic pain syndrome | [facility] | + + + + | 2022-04-02 00:00 | Chronic pain syndrome | [facility] | + + + + | 2022-04-02 00:00 | Chronic pain syndrome | [facility] | + + + + | 2022-04-02 00:00 | Chronic pain syndrome | [facility] | + + + + | 2022-04-02 00:00 | Chronic pain syndrome | [facility] | + + + + | 2022-04-02 00:00 | Chronic pain syndrome | [facility] | + + + + | 2022-04-02 00:00 | Chronic pain syndrome | [facility] | + + + + | 2022-04-02 00:00 | Atypical chest pain | [facility] | + + + + | 2022-04-02 00:00 | Atypical chest pain | [facility] | + + + + | 2022-04-02 00:00 | Atypical chest pain | [facility] | + + + + | 2022-04-02 00:00 | Atypical chest pain | [facility] | + + + + | 2022-04-02 00:00 | Atypical chest pain | [facility] | + + + + | 2022-04-02 00:00 | Atypical chest pain | [facility] | + + + + | 2022-04-02 00:00 | Atypical chest pain | [facility] | + + + + | 2022-04-02 00:00 | Atypical chest pain | [facility] | + + + + | 2022-04-02 00:00 | Atypical chest pain | [facility] | + + + + | 2022-04-29 00:00 | Left lower quadrant | [facility] | | | abdominal pain | | + + + + | 2022-04-29 00:00 | Left lower quadrant | [facility] | | | abdominal pain | | + + + + | 2022-04-29 00:00 | Left lower quadrant | [facility] | | | abdominal pain | | + + + + | 2022-04-29 00:00 | Left lower quadrant | [facility] | | | abdominal pain | | + + + + | 2022-04-29 00:00 | Left lower quadrant | [facility] | | | abdominal pain | | + + + + | 2022-04-29 00:00 | Left lower quadrant | [facility] | | | abdominal pain | | + + + + | 2022-04-29 00:00 | Left lower quadrant | [facility] | | | abdominal pain | | + + + + | 2022-04-29 00:00 | Left lower quadrant | [facility] | | | abdominal pain | | + + + + | 2022-04-29 00:00 | Nausea and vomiting | [facility] | + + + + | 2022-04-29 00:00 | Nausea and vomiting | [facility] | + + + + | 2022-04-29 00:00 | Nausea and vomiting | [facility] | + + + + | 2022-04-29 00:00 | Nausea and vomiting | [facility] | + + + + | 2022-04-29 00:00 | Nausea and vomiting | [facility] | + + + + | 2022-04-29 00:00 | Nausea and vomiting | [facility] | + + + + | 2022-04-29 00:00 | Nausea and vomiting | [facility] | + + + + | 2022-04-29 00:00 | Nausea and vomiting | [facility] | + + + + | 2022-04-29 00:00 | Lung nodule | [facility] | + + + + | 2022-04-29 00:00 | Lung nodule | [facility] | + + + + | 2022-04-29 00:00 | Lung nodule | [facility] | + + + + | 2022-04-29 00:00 | Lung nodule | [facility] | + + + + | 2022-04-29 00:00 | Lung nodule | [facility] | + + + + | 2022-04-29 00:00 | Lung nodule | [facility] | + + + + | 2022-04-29 00:00 | Lung nodule | [facility] | + + + + | 2022-04-29 00:00 | Lung nodule | [facility] | + + + + | 2022-05-12 00:00 | Upper respiratory tract | [facility] | | | infection | | + + + + | 2022-05-12 00:00 | Upper respiratory tract | [facility] | | | infection | | + + + + | 2022-05-12 00:00 | Upper respiratory tract | [facility] | | | infection | | + + + + | 2022-05-12 00:00 | Upper respiratory tract | [facility] | | | infection | | + + + + | 2022-05-12 00:00 | Upper respiratory tract | [facility] | | | infection | | + + + + | 2022-05-12 00:00 | Upper respiratory tract | [facility] | | | infection | | + + + + | 2022-05-12 00:00 | Upper respiratory tract | [facility] | | | infection | | + + + + | 2022-05-12 00:00 | Upper respiratory tract | [facility] | | | infection | | + + + + | 2022-06-04 00:00 | Neck sprain | [facility] | + + + + | 2022-06-04 00:00 | Neck sprain | [facility] | + + + + | 2022-06-04 00:00 | Neck sprain | [facility] | + + + + | 2022-06-04 00:00 | Neck sprain | [facility] | + + + + | 2022-06-04 00:00 | Neck sprain | [facility] | + + + + | 2022-06-04 00:00 | Neck sprain | [facility] | + + + + | 2022-06-04 00:00 | Neck sprain | [facility] | + + + + | [...] + | 2022-06-06 00:00 | Concussion | [facility] | + + + + | 2022-06-06 00:00 | Concussion | [facility] | + + + + | 2022-06-06 00:00 | Concussion | [facility] | + + + + | 2022-06-06 00:00 | Concussion | [facility] | + + + + | 2022-06-06 00:00 | Concussion | [facility] | + + + + | 2022-06-06 00:00 | Concussion | [facility] | + + + + | 2022-06-06 00:00 | Concussion | [facility] | + + + + | 2022-06-06 00:00 | Injury of head | [facility] | + + + + | 2022-06-06 00:00 | Injury of head | [facility] | + + + + | 2022-06-06 00:00 | Injury of head | [facility] | + + + + | 2022-06-06 00:00 | Injury of head | [facility] | + + + + | 2022-06-06 00:00 | Injury of head | [facility] | + + + + | 2022-06-06 00:00 | Injury of head | [facility] | + + + + | 2022-06-06 00:00 | Injury of head | [facility] | + + + + | [...] + + | 2022-06-06 13:10 | OTHER PENITENTIARY (CURRENT) | [facility] | | | DRUG [...] | 2022-06-25 00:00 | Abdominal pain | [facility] | + + + + | 2022-06-25 00:00 | Abdominal pain | [facility] | + + + + | 2022-06-25 00:00 | Abdominal pain | [facility] | + + + + | 2022-06-25 00:00 | Abdominal pain | [facility] | + + + + | 2022-06-25 00:00 | Abdominal pain | [facility] | + + + + | 2022-06-25 00:00 | Abdominal pain | [facility] | + + + + | 2022-06-25 00:00 | Abdominal pain | [facility] | + + + + | [...] + + | 2022-06-25 12:18 | OTHER SKY CAP (CURRENT) | [facility] | | | DRUG [...] + + | 2022-07-25 10:43 | OTHER SKY CAP (CURRENT) | [facility] | | | DRUG [...] 00:00 | Patient left without being | [facility] | | | seen | | + + + + | 2022-07-31 00:00 | Patient left without being | [facility] | | | seen | | + + + + | 2022-07-31 00:00 | Patient left without being | [facility] | | | seen | | + + + + | 2022-07-31 00:00 | Patient left without being | [facility] | | | seen | | + + + + | 2022-07-31 00:00 | Patient left without being | [facility] | | | seen | | + + + + | 2022-07-31 00:00 | Patient left without being | [facility] | | | seen | | [...] + + | 2022-08-01 08:08 | OTHER PENITENTIARY (CURRENT) | [facility] | | | DRUG [...] + + | 2022-08-19 14:20 | OTHER PENITENTIARY (CURRENT) | [facility] | | | DRUG [...] 2022-09-01 00:00 | Chronic abdominal pain | [facility] | + + + + | 2022-09-01 00:00 | Chronic abdominal pain | [facility] | + + + + | 2022-09-01 00:00 | Chronic abdominal pain | [facility] | + + + + | 2022-09-01 00:00 | Chronic abdominal pain | [facility] | + + + + | 2022-09-01 00:00 | Chronic abdominal pain | [facility] | + + + + | 2022-09-01 00:00 | Headache | [facility] | + + + + | 2022-09-01 00:00 | Headache | [facility] | + + + + | 2022-09-01 00:00 | Headache | [facility] | + + + + | 2022-09-01 00:00 | Headache | [facility] | + + + + | 2022-09-01 00:00 | Headache | [facility] | + + + + | [...] + + | 2022-09-01 14:12 | OTHER SKY CAP (CURRENT) | [facility] | | | DRUG [...] + + | 2022-09-15 08:51 | OTHER PENITENTIARY (CURRENT) | [facility] | | | DRUG [...] + + | 2022-09-16 11:56 | OTHER SKY CAP (CURRENT) | [facility] | | | DRUG [...] + + | 2022-09-20 08:30 | OTHER PENITENTIARY (CURRENT) | [facility] | | | DRUG [...] + + | 2022-10-02 17:30 | OTHER PENITENTIARY (CURRENT) | [facility] | | | DRUG [...] + + | 2022-11-13 13:19 | OTHER PENITENTIARY (CURRENT) | [facility] | | | DRUG [...] + | 2022-11-22 00:00 | Pyelonephritis | [facility] | + + + + | 2022-11-22 00:00 | Pyelonephritis | [facility] | + + + + | 2022-11-22 00:00 | Pyelonephritis | [facility] | + + + + | 2022-11-22 00:00 | Pyelonephritis | [facility] | + + + + | 2022-11-22 [...] + + | 2022-11-22 11:47 | OTHER PENITENTIARY (CURRENT) | [facility] | | | DRUG [...] | 2022-11-24 00:00 | Flank pain | [facility] | + + + + | 2022-11-24 00:00 | Flank pain | [facility] | + + + + | 2022-11-24 00:00 | Flank pain | [facility] | + + + + | [...] 00:00 | Traumatic injury of head | [facility] | + + + + | 2023-01-07 00:00 | Strain of neck muscle | [facility] | + + + + | [...] + + | 2023-01-07 15:00 | OTHER PENITENTIARY (CURRENT) | [facility] | | | DRUG [...] | 2023-01-17 00:00 | Acute bronchitis | [facility] | + + + + | [...] + + | 2023-01-17 09:21 | OTHER SKY CAP (CURRENT) | [facility] | | | DRUG [...] RPR AA HRN 1ST < 3 | [facility] | | | NCR/STRN | | + + + + Results/Labs +--------+--------+ +---------+--------+---------+ | test | date | facility | value | unit | notes | +--------+--------+ +---------+--------+---------+ + + | Result panel 1 | + + + + + +--------+ + + | | 2022-01-09 | [facility] | 13.8 | (missing) | (missing) | | (unavailable | 15:44 | [place] | | | | | ) | [...] (missing) | | (unavailable | 11:00 | [facility] | | | | | [...] (missing) | | (unavailable | 14:40 | [facility] | | | | | [...] (missing) | | (unavailable | 09:49 | [facility] | | | | | [...] (missing) | | (unavailable | 15:07:07 | [facility] | | | | | [...] (missing) | | (unavailable | 15:30:07 | [facility] | | | | | [...]
[~2023-02-05 16:56] MED LIST changes: +DOXYCYCLINE HY100 MG PO
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
[2023-02-05 17:27] LABS: HEMOGLOBIN 15.1 g/dL (12.0-18.0)
[2023-02-05 17:32] LABS: BASOPHILS 0.9 % (0-2); EOSINOPHILS 2.5 % (0-6); HEMATOCRIT 45.7 % (35.0-50.0); LYMPHOCYTES 29.4 % (24-44); MCHC 33.1 g/dl (30-36); MCV 93.5 fl (81-99); MONOCYTES 4.8 % (0-12); NEUTROPHILS 62.4 % (39-80); PLATELET COUNT 289 K/uL (140-440); RBC 4.89 M/ul (4.3-5.7); RDW 13.8 (10.5-15.0)
[2023-02-05 17:35] LABS: ALBUMIN 3.4 g/dL (3.4-5.0); ALBUMIN/GLOBULIN RATIO 0.89 (1.1-2.4); ALCOHOL, MEDICAL <3 ng/dL (<3); ALKALINE PHOSPHATASE 129 U/L (46-116); ALT (SGPT) 75 U/L (14-59); ANION GAP 18.3 (7-21); AST (SGOT) 54 U/L (15-37); BILIRUBIN, TOTAL 0.3 ng/dL (0.2-1.0); BUN/CREATININE RATIO 19.82 (6.0-28.6); CALCIUM 9.5 mg/dL (8.5-10.1); CARBON DIOXIDE 21 mmol/L (21-32); CHLORIDE 101 mmol/L (98-107); CREATININE, SERUM 1.16 mg/dL (0.55-1.02); GLOMERULAR FILTRATION RATE,EST 57 mL/min (>60); POTASSIUM 4.3 mmol/L (3.5-5.1); PROTEIN, TOTAL 7.2 g/dL (6.4-8.2); UREA NITROGEN 23 mg/dL (7-18)
[2023-02-05 17:55] LABS: ABO O; ANTIBODY SCREEN NEGATIVE; RH POSITIVE
[2023-02-05] MEDS ORDERED: OXYCODONE HCL5 MG PO (18:23)
[2023-02-05 18:45] VITALS: BP 163/110
== END 2023-02-05 18:45 | disposition home or self-care (01) ==
LOC: ED 16:56
PROVIDERS: Emergency Medicine
DX: S92.511B Displaced fracture of proximal phalanx of right lesser toe(s), initial encounter for open fracture (principal); W34.00XA Accidental discharge from unspecified firearms or gun, initial encounter; F31.9 Bipolar disorder, unspecified; F25.9 Schizoaffective disorder, unspecified; F17.200 Nicotine dependence, unspecified, uncomplicated; Z90.5 Acquired absence of kidney; Z88.0 Allergy status to penicillin; Z88.1 Allergy status to other antibiotic agents; Z88.5 Allergy status to narcotic agent; Z88.8 Allergy status to other drugs, medicaments and biological substances; Z79.899 Other long term (current) drug therapy; Z23 Encounter for immunization
CPT/HCPCS: 36415; 73630; 80053; 85025; 86850; 86900; 86901; 90715; G0480; J1170

== ENCOUNTER 2023-02-15 13:23 | Emergency (ER) | payer OTHER ==
[~2023-02-15] VITALS: Ht 162.6 cm; Wt 120.2 kg
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
[2023-02-15] MEDS ORDERED: LEVOFLOXACIN750 MG PO (14:51)
[2023-02-15 16:30] VITALS: BP 125/89
== END 2023-02-15 16:31 | disposition home or self-care (01) ==
LOC: ED 13:23
DX: M25.562 Pain in left knee (principal); F17.200 Nicotine dependence, unspecified, uncomplicated; Z88.0 Allergy status to penicillin; Z88.1 Allergy status to other antibiotic agents; Z88.5 Allergy status to narcotic agent; Z88.8 Allergy status to other drugs, medicaments and biological substances; Z79.890 Hormone replacement therapy; Z79.899 Other long term (current) drug therapy
CPT/HCPCS: 73560; 99283-25

== ENCOUNTER 2023-03-02 07:45 | Day surgery (SDC) | payer OTHER ==
[2023-02-28 10:20] VITALS: BP 117/65
[~2023-03-02] VITALS: Ht 162.6 cm; Wt 120.0 kg
[~2023-03-02 07:45] MED LIST changes: +LEVOFLOXACIN750 MG PO; +METFORMIN HCL500 MG PO
[2023-03-02 08:13] VITALS: BP 140/85
--- NOTE | 2023-03-02 09:11 | NUR ---
IV REMAINS DRAWING BLOOD AND FLUSHES EASILY. PT REPORTS NO PAIN OR SWELLING WITH THE IV.
[2023-03-02] MEDS ORDERED: OXYCODONE HCL5 MG PO (10:06)
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
[2023-03-02 11:09] VITALS: BP 112/54
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
--- NOTE | 2023-03-02 11:40 | NUR ---
1133- DR. MAE CALLED AND ASKED ABOUT PAIN MEDICATIONS THE PT IS BEING PRESCRIBED OXYCODONE FROM HOME, BUT HYDROCODONE FOR THE HOSPITAL. DR. MAE GIVES ORDER FOR OXYCODONE AND TO DC THE HYDROCODONE.
--- NOTE | 2023-03-02 12:05 | NUR ---
PT ABLE TO STAND AND PIVOT TO THE BEDSIDE COMMODE WITH ASSISTANCE. PT TOLERATED WELL. PT ABLE TO URINATE 450 ML OF CLEAR YELLOW URINE. PT ASSISTED BACK TO BED. PT SITTING UP ON THE EDGE OF THE BED WITH HER BOOT IN PLACE. PT PROVIDED MORE CRACKERS AND ICE WATER PER HER REQUEST. PT DRESSED AND STATES SHE FEELS READY TO GO HOME WHEN POSSIBLE. UPDATED PT ON WAITING FOR PAIN MEDICATION TO TAKE EFFECT. PT STATES UNDERSTANDING.
[2023-03-02 12:14] VITALS: BP 148/84
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
== END 2023-03-02 12:21 | disposition home or self-care (01) ==
LOC: DS 07:45
PROVIDERS: ATTEND Specialist
PROC: 0QCN0ZZ Extirpation of Matter from Right Metatarsal, Open Approach (ICD-10-PCS; principal; 2023-03-02 10:00)
DX: S91.331A Puncture wound without foreign body, right foot, initial encounter (principal); F31.9 Bipolar disorder, unspecified; F25.9 Schizoaffective disorder, unspecified; Z88.0 Allergy status to penicillin; W32.0XXA Accidental handgun discharge, initial encounter
CPT/HCPCS: 01470; 64445; 73620; 76942; A9270; J1100; J1170; J2001; J2250; J2405; J2704; J2795; J3010; J3490; J7121

== ENCOUNTER 2023-04-18 10:08 | Inpatient (IN) | payer OTHER ==
[~2023-04-18] VITALS: Ht 162.6 cm; Wt 120.2 kg
[~2023-04-18 10:08] MED LIST changes: +DULOXETINE HCL60 MG PO; +LEVOFLOXACIN500 MG PO
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
[2023-04-18 11:44] LABS: BILIRUBIN, URINE NEGATIVE (negative); BLOOD/HGB, URINE NEGATIVE (Negative); KETONE, URINE NEGATIVE (Negative); LEUK ESTERASE, URINE NEGATIVE (negative); NITRITE, URINE POSITIVE (negative); PH, URINE 7.5 (5-7)
[2023-04-18 11:53] LABS: EPITHELIAL CELLS, URINE SQUAMOUS 3+ /lpf (0-1+); RED BLOOD CELLS, URINE 0-1 /hpf (0-5)
[2023-04-18 11:54] LABS: BACTERIA, URINE 3+ /hpf (negative); CASTS, URINE NONE SEEN \\lpf; COLLECTION TYPE, URINE CLEAN CATCH; CRYSTALS, URINE NONE SEEN (0-1+); REFLEX CULTURE, URINE No (No)
[2023-04-18 12:00] LABS: BASOPHILS 1.1 % (0-2); HEMATOCRIT 44.8 % (35.0-50.0); HEMOGLOBIN 14.8 g/dL (12.0-18.0); LYMPHOCYTES 24.4 % (24-44); MCH 30.3 (27-36); MCV 91.9 fl (81-99); MONOCYTES 4.1 % (0-12); NEUTROPHILS 69.4 % (39-80); PLATELET COUNT 384 K/uL (140-440); RBC 4.87 M/ul (4.3-5.7); RDW 13.9 (10.5-15.0)
[2023-04-18 12:14] LABS: ALBUMIN 3.5 g/dL (3.4-5.0); ALBUMIN/GLOBULIN RATIO 0.95 (1.1-2.4); ANION GAP 13.9 (7-21); BILIRUBIN, TOTAL 0.2 ng/dL (0.2-1.0); BUN/CREATININE RATIO 16.32 (6.0-28.6); CALCIUM 9.7 mg/dL (8.5-10.1); CREATININE, SERUM 0.98 mg/dL (0.55-1.02); POTASSIUM 3.9 mmol/L (3.5-5.1); PROTEIN, TOTAL 7.2 g/dL (6.4-8.2)
[2023-04-18 12:39] LABS: INFLUENZA B NAA NEGATIVE (NEGATIVE); RESPIRATORY SYNCYTIAL VIR NAA NEGATIVE (NEGATIVE)
[2023-04-18 12:48] LABS: LACTIC ACID, BLOOD 1.6 mmol/L (0.4-2.0)
[2023-04-18] MEDS ORDERED: METFORMIN HCL500 M1 PO (13:02)
[2023-04-18] MEDS ORDERED: METHYLPHENIDATE20 MG PO (13:04)
[2023-04-18] MEDS ORDERED: OXYCODON-ACETA1 EAC2 PO (13:05)
[2023-04-18] MEDS ORDERED: LAMOTRIGINE150 MG PO (13:06)
[2023-04-18] MEDS ORDERED: TRIAMCINOLONE A15 G1 TOP (13:08)
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
[2023-04-18 13:26] VITALS: BP 124/60
[2023-04-18] MEDS ORDERED: CICLOPIROX15 GM TOP (13:50)
--- NOTE | 2023-04-18 13:54 | NUR ---
medications reconciled using pharmacy records and patient interview
--- NOTE | 2023-04-18 16:37 | NUR ---
IVF infusing WNL. 4mg PRN morphine administered for patient request of 8/10 LLQ pain. Pt asks about home meds for sleep and if she can eat or have clear liquids. Discussed that Dr Camargo is in a procedure and will round.
--- NOTE | 2023-04-18 17:26 | NUR ---
IN TO ADMINISTER MEDICATION, SEE MAR. PT REPORTING PAIN 7/10 IN LEFT SIDE OF ABD. PT TAKES PO MEDICATION WITH NO ISSUES. PT DENIES ANY OTHER NEEDS AT THIS TIME. CALL LIGHT IN REACH. PT LAYING IN BED SEMI-FOWLERS.
[2023-04-18 18:11] VITALS: BP 117/57
--- NOTE | 2023-04-18 19:25 | NUR ---
bedside report given by dayshift RN. Patient very concerned about getting enough pain medication and that how it is now will not cover her and would like MD called. Patient lying in bed watching TV, facial expression relaxed. call light within reach.
--- NOTE | 2023-04-18 20:00 | NUR ---
notified regarding patients concern with her pain medication. Order for Percocet changed from q6h to q4h.
[2023-04-18 20:39] VITALS: BP 135/80
--- NOTE | 2023-04-18 21:29 | NUR ---
Patient resting in bed, VSS, states left side abd. tender, active BT's no nausea, IV intact and infusing @ 100/h, blood sugar 130 and no SS insulin required. SBA up to BR with boot to right foot, gait steady, Patient very concerned about getting prn pain med exactly at time due, rating pain 7. Tolerating clear liquids, Working with RT to set up bipap for the night, Patient uses this at home. Watching TV and call light within reach.
--- NOTE | 2023-04-18 22:21 | NUR ---
PATIENT USES BIPAP AT NIGHT, MD NOTIFIED AND ORDER GIVEN, RT IN ROOM TO SET UP. PATIENT REQUESTING NAUSEA MEDICATION, DRINKING SPRITE WITHOUT DIFFICULTY. CALL LIGHT IN REACH.
--- NOTE | 2023-04-18 23:00 | NUR ---
Patient has been on light every 5-10 minutes requesting different needs. Just called to request a pacifier under her CPAP to help keep her mouth closed so it would not dry out so bad. Informed patient this would be a safety concern and she understood. Is now again attempting to sleep, lights are out, call light in reach.
--- NOTE | 2023-04-19 00:12 | NUR ---
Patient appears to be asleep, appears comfortable, no noted distress with RR-20. tolerating bipap, HOB elevated, call light within reach.
[2023-04-19 01:42] VITALS: BP 146/67
--- NOTE | 2023-04-19 01:45 | NUR ---
Patient awake, SBA to BR, medicated for pain per request, given chicken broth stating she is not nauseated anymore and asking about when she'll beable to eat. VSS, Continous pulse ox remaining at 93%. bipap back on and patient trying to go back to sleep. call light in reach.
--- NOTE | 2023-04-19 01:59 | NUR ---
MD called and clarification on IV antibiotics made, Scheduled doses of both flagyl and cipro will be given now.
--- NOTE | 2023-04-19 02:45 | NUR ---
Patient sleeping, RR-20, continous pulse ox = 89-90%. IV abx infusing, call light within reach.
--- NOTE | 2023-04-19 04:02 | NUR ---
Patient SBA to BR, tolerated well, Asking about when her pain medication is due, Back to bed, bipap on with sats at 93%. call light within reach.
--- NOTE | 2023-04-19 04:18 | NUR ---
Patient call light on, requesting nausea medication, Explained to patient that she needs to limit oral intake if she is needing nausea medication routinely. She has had to cans of soda and full cup of broth tonight. She is having no emesis. BT's remain active, no increase in abd pain. Will recheck with patient when Zofran can be given again, at this time has not been 6 hours. Patient agreeable, call light within reach.
--- NOTE | 2023-04-19 04:52 | NUR ---
Recheck on patient and need for nausea medication, Patient sleeping @ this time, appears comfortable, O2 sats on bipap = 93%.
[2023-04-19 05:29] LABS: BASOPHILS 0.8 % (0-2); EOSINOPHILS 2.2 % (0-6); HEMATOCRIT 41.8 % (35.0-50.0); HEMOGLOBIN 13.8 g/dL (12.0-18.0); LYMPHOCYTES 29.5 % (24-44); MCH 30.3 (27-36); MONOCYTES 4.5 % (0-12); PLATELET COUNT 279 K/uL (140-440); RBC 4.55 M/ul (4.3-5.7); RDW 13.8 (10.5-15.0)
--- NOTE | 2023-04-19 05:30 | NUR ---
Patient called and requested nausea medication and 4mg Zofran IV given. Patient reminded RN to make sure to bring pain medicaiton in when it was due. At this time patient is resting in bed, Has taken bipap off for a while. Has slept on and off tonight. Received pain med q 4hours and nausea med. q6h tonight. Has tolerated broth and soda without emesis, Evening blood sugar was 130 requiring no SS insulin, VSS.
--- NOTE | 2023-04-19 05:42 | NUR ---
Patient called and requesting pain medication. 1 percocvet given, rating pain at a 7, Asking when breakfast will be here, Is now awake and watching TV.
[2023-04-19 05:57] VITALS: BP 133/68
[2023-04-19 06:34] LABS: ALBUMIN 3.2 g/dL (3.4-5.0); ALBUMIN/GLOBULIN RATIO 0.94 (1.1-2.4); ANION GAP 12.1 (7-21); BILIRUBIN, TOTAL 0.2 ng/dL (0.2-1.0); BUN/CREATININE RATIO 11.88 (6.0-28.6); CALCIUM 8.7 mg/dL (8.5-10.1); CREATININE, SERUM 1.01 mg/dL (0.55-1.02); MAGNESIUM 1.7 mg/dL (1.8-2.4); POTASSIUM 4.1 mmol/L (3.5-5.1); PROTEIN, TOTAL 6.6 g/dL (6.4-8.2)
--- NOTE | 2023-04-19 06:49 | NUR ---
Patient up to BR to void then set up for shower. tolerating with SOB but no distress noted and oxygen remains on during activity. Instructed to call when finished.
--- NOTE | 2023-04-19 07:15 | NUR ---
REPORT RECEIVED FROM ROSIE BLAKE. PT SEMI-FOWLERS IN BED. EYES CLOSES, RR EVEN AND UNLABORED. NO OTHER NEEDS IDENTIFIED AT THIS TIME. CALL LIGHT IN REACH.
--- NOTE | 2023-04-19 08:02 | NUR ---
IN TO ADMINISTER MEDICATION, SEE MAR. PT SITTING UP IN BED WATCHING TV. PT RESPONDS WHEN ADDRESSED. ASSESSMENT COMPLETE. LUNG SOUNDS COARSE THROUGHOUT ALL LOBES. BOWEL TONES ACTIVE. ABD TENDERNESS WITH PALPATION ON LEFT SIDE, UPPER AND LOWER QUADRANTS. PT REPORTS PAIN 7/10 ON LEFT SIDE OF ABD. OFFERED HOT PACK. HOT PACK PROVIDED. PT IV FLUSHES WNL. IV INFUSING WNL. PT REPORTS TOILETING NEEDS. PT AMBULATES WITH STEADY GAIT FROM BED TO RESTROOM AND BACK TO BED WITH BOOT ON RIGHT FOOT. VOID NOTED. HAT IN TOILET EMPTIED. PT DENIES ANY OTHER NEEDS AT THIS TIME. CALL LIGHT IN REACH.
--- NOTE | 2023-04-19 08:45 | NUR ---
IN TO ADMINISTER MEDICATION, SEE MAR. PT SITTING UP IN BED. PT RESPONDS WHEN ADDRESSED. BREAKFAST TRAY ARRIVED. PT DENIES ANY OTHER NEEDS AT THIS TIME. CALL LIGHT IN REACH.
[2023-04-19 09:58] VITALS: BP 139/71
--- NOTE | 2023-04-19 10:02 | NUR ---
IN TO ADMINISTER MEDICATION, SEE MAR. PT SITTING UP IN BED. PT RESPONDS WHEN ADDRESSED. PT REPORTING PAIN 7/10 IN LEFT SIDE OF ABD. PRN PAIN MEDICATION ADMINISTERED, SEE MAR. VITALS AND I&Os COMPLETE. TRAY REMOVED. PT DENIES ANY OTHER NEEDS AT THIS TIME. CALL LIGHT IN REACH.
--- NOTE | 2023-04-19 11:04 | NUR ---
IN TO PROVIDE PT HOT PACK PT IS REQUESTING. HOT PACK PROVIDED. PRN MEDICAITON ADMINISTERED, SEE MAR. PER DR. CONROY ORDERS IN EMAR PT CAN HAVE 1-2 TABS OF PRN MEDICATION. TITRATED TO MAX DOSE. PT TAKES PO MEDICATION WITH NO ISSUES. PT REPORTING PAIN 7/10 IN LEFT SIDE OF ABD. PT DENIES ANY OTHER NEEDS AT THIS TIME. CALL LIGHT IN REACH.
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
--- NOTE | 2023-04-19 11:56 | NUR ---
IN TO OBTAIN PTs BG. MEDICATION ADMINISTERED, SEE MAR. PT SITTING UP IN BED WATCHING TV. PT REQUESTING NEW HOT PACK. HOT PACK PROVIDED. PT REQUESTING DIET BILLY. DIET BILLY PROVIDED. PT DENIES ANY OTHER NEEDS AT THIS TIME. CALL LIGHT IN REACH.
--- NOTE | 2023-04-19 13:14 | NUR ---
PT DENIED NEEDS. DECLINED PRAYER. LEFT CONTACT CARD WITH INVITATION TO CALL IF SOMETHING COMES UP. PRAYED SILENTLY FOR ISLAM OF HEALTH AND ONGOING BLESSING.
[2023-04-19 13:28] VITALS: BP 123/56
--- NOTE | 2023-04-19 13:42 | NUR ---
IN TO ADMINSITER MEDICATION, SEE MAR. PT SITTING UP IN BED WATCHING TV. PT ASKING WHEN DR. MOCK WILL BE AROUND. INFORMED PT THAT DR. MOCK WILL BE BY WHEN HE GETS A CHANCE. PT STATES "IF YOU SEE HIM WILL YOU ASK HIM WHEN I CAN EAT?" ASSESSMENT COMPLETE. LUNG SOUNDS COARSE THROUGHOUT. BOWLE TONES ACTIVE. PT REPORTING PAIN IN LEFT SIDE OF ABD 12/11. ABD TENDER NEEDS NOTED TO LEFT SIDE OF ABD. HOT PACK IN PLACE. PT DENIES ANY OTHER NEEDS AT THIS TIME. CALL LIGHT IN REACH.
--- NOTE | 2023-04-19 13:56 | NUR ---
pt resting in bed. vitals and is and os complete. pt req warm pack, warm pack provided. rn notified that iv is complete. no further needs. call light within reach
--- NOTE | 2023-04-19 15:45 | NUR ---
IN PT REPORTING PAIN 7/10 IN LEFT SIDE OF ABD. PRN PAIN MEDICATION ADMINISTERED, SEE MAR. PT TAKES PO MEDICATION WITH ON ISSUES. PT SITTING UP IN BED. PT DENIES ANY OTHER NEEDS AT THIS TIME. CALL LIGHT IN REACH.
--- NOTE | 2023-04-19 16:28 | NUR ---
IN TO ANSWER CALL LIGHT. PT REQUESTING MILK. MILK PROVIDED. 1630 ELLI COX [facility] PT REQUESTING TO HAVE HAIR COMBED OUT. THIS RN SLAUGHTER PTs HAIR. PT SITTING UP IN BED. PT DENIES ANY OTHER NEEDS AT THIS TIME. CALL LIGHT IN REACH.
--- NOTE | 2023-04-19 17:00 | NUR ---
IV PUMP ALARMING, RESOLVED. PT SITTING UP IN BED ON PHONE. PT DENIES ANY OTHER NEEDS AT THIS TIME. CALL LIGHT IN REACH.
--- NOTE | 2023-04-19 17:18 | NUR ---
IN TO ANSWER CALL LIGHT. PT IN RESTROOM AND STATES "I DID NOT MAKE IT TO THE BATHROOM." PT NOTED TO HAVE A BM. [facility] PROVIDED. NEW ATTENDS PROVIDED. NEW SLIDE SHEET PLACED ON BED. OFFERED TO CHANGE LINENS ON BED AND PT DECLINES. PT BACK IN BED. PT DENIES ANY OTHER NEEDS AT THIS TIME. CALL LIGHT IN REACH.
--- NOTE | 2023-04-19 17:55 | NUR ---
IN TO ADMINISTER MEDICATION, SEE MAR. PT SITTING UP IN BED TALKING ON PHONE. VITALS AND I&Os COMPLETE. DINNER TRAY REMOVED. PT REQUESTING HOT PACK AND DIET BILLY. HOT PACK AND DIET BILLY PROVIDED. PT DENIES ANY OTHER NEEDS AT THIS TIME. CALL LIGHT IN REACH.
[2023-04-19 17:59] VITALS: BP 139/73
--- NOTE | 2023-04-19 19:45 | NUR ---
PT AWAKE, REQUESTING PAIN MEDS. STATES PAIN IS 7/10. ASSESSMENT COMPLETED AND MEDS GIVEN. PT DISCUSSED USING THE BIPAP FOR SLEEP. REQUESTED RT TO COME, ADVISED RT. CALL LIGHT IN PLACE
[2023-04-19 20:34] VITALS: BP 130/67
--- NOTE | 2023-04-19 21:28 | NUR ---
CALL LIGHT ANSWERED, pt REPORTS SHE COULDN'T MOVE IV POLE BETWEEN BED AND BIPAPA MACHINE AND ACCIDENTLY VOIDED IN BRIEF AND ON FLOOR, [facility] DONE AND CLEAN BRIEFS IN PLACE. pt BACK IN BED, CALL LIGHT IN REACH, pt ASKING FOR MORE SNACKS, PRIMARY RN AWARE.
--- NOTE | 2023-04-19 22:00 | NUR ---
PT HAS BEEN CALLING EVERY 15-30 MINUTES, REQUESTING DRINKS, SNACKS OR HAVING PROBLEMS WITH HER BIPAP. PT HAS BEEN ASKED EACH TIME STAFF ENTERS WHAT ALL WE CAN DO FOR HER BEFORE LEAVING. EDUCATION GIVEN ON SNACKS. RT IN MANY TIMES TO ADJUST BIPAP. CALL LIGHT IN REACH, PT IS IND TO BR.
--- NOTE | 2023-04-20 01:19 | NUR ---
SBA to BR, gait steady, tolerating activity well, Back to bed now, bipap placed back on, requested and given warm pack for left side of abdomine for comfort. lights out and call light within reach.
[2023-04-20 02:50] VITALS: BP 129/50
[2023-04-20 04:39] VITALS: BP 129/70
[2023-04-20 05:53] LABS: BASOPHILS 0.4 % (0-2); EOSINOPHILS 2.8 % (0-6); HEMATOCRIT 40.3 % (35.0-50.0); HEMOGLOBIN 13.5 g/dL (12.0-18.0); LYMPHOCYTES 12.4 % (24-44); MCH 30.8 (27-36); MCHC 33.5 g/dl (30-36); MCV 91.8 fl (81-99); MONOCYTES 6.4 % (0-12); PLATELET COUNT 248 K/uL (140-440); RBC 4.39 M/ul (4.3-5.7); RDW 13.7 (10.5-15.0)
[2023-04-20 06:18] LABS: ALBUMIN 3.1 g/dL (3.4-5.0); ALBUMIN/GLOBULIN RATIO 0.94 (1.1-2.4); ANION GAP 12.4 (7-21); BILIRUBIN, TOTAL 0.3 ng/dL (0.2-1.0); BUN/CREATININE RATIO 10.75 (6.0-28.6); CREATININE, SERUM 0.93 mg/dL (0.55-1.02); POTASSIUM 4.4 mmol/L (3.5-5.1); PROTEIN, TOTAL 6.4 g/dL (6.4-8.2)
--- NOTE | 2023-04-20 06:52 | NUR ---
PT HAS BEEN ON HER CALL LIGHT ALL NIGHT. SHE HAS BEEN HAVING SNACKS AND FLUIDS OF HER CHOICE THROUGHOUT THE NIGHT. EDUCATION GIVEN ON DMII AND HER BG. EACH TIME IN THE ROOM, PT HAS BEEN ASKED IF SHE NEEDS ANYTHING ELSE PRIOR TO NURSING STAFF LEAVING THE ROOM AND EACH TIME SHE CALLS WITHIN 30-45 MIN.
--- NOTE | 2023-04-20 07:10 | NUR ---
REPORT FROM BRICE - AURELIO RESTING IN BED, RESP RATE EVEN, CALL LIGHT IN REACH.
[2023-04-20 08:32] LABS: CALCIUM 8.9 mg/dL (8.5-10.1)
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
[2023-04-20 10:14] VITALS: BP 136/66
--- NOTE | 2023-04-20 11:01 | NUR ---
PT DENIED SPIRITUAL NEEDS. ASKED ABOUT HAVING PRESCRIPTIONS PICKED UP AT [facility]. PASSED THIS REQUEST ON TO CARDIOLOGY CLINICAL NURSE SPECIALIST ROSALIO WHO SAID SHE WOULD FOLLOW-UP. RELAYED THIS INFORMATION TO PT.
--- NOTE | 2023-04-20 11:47 | NUR ---
NURSING BROUGHT IN EDUCATION ON DIVERTICULITIS WHICH INCLUDES LOW-FIBER DIET INFO. PATIENT STATES SHE HAS BEEN ON THIS DIET BEFORE. I REVIEWED THE FOODS ALLOWED ON A LOW-FIBER DIET AND REMINDED HER THAT SHE WILL NEED TO FOLLOW THIS DIET FOR [address] MOCK. SHE DOESN'T EAT MANY FRUITS AND VEGGIES, THOUGH SHE LIKES STEAMED BROCCOLI AND BRUSSEL SPROUTS. NO FURTHER DIET INFORMATION PROVIDED FROM ME. CONTINUE FULL LIQUID LOW FIBER DIET UNTIL DR. JACKSON DIET.
[2023-04-20 13:35] VITALS: BP 124/47
--- NOTE | 2023-04-20 13:58 | NUR ---
PT REQUESTING PAIN MEDS, PO GIVEN - SEE MAR, VOIDING WELL, PT STATES SHE IS READY TO EAT REGULAR FOOD! REPORTS CHRONIC PAIN MED USE. CALL LIGHT IN REACH -
--- NOTE | 2023-04-20 13:59 | NUR ---
PT REPORTS LEFT SIDE PAIN, REPORTS CHRONIC PAIN MED USE. ASKING FOR REGULAR DIET - WANTS REAL FOOD IMSPITE OF PAIN, SEEMS TO BE UNSURE OF DIABETIC DIET AND CARES BUT TELLS ME SHE TAKES MEDS AT HOME, PT ASKS FOR 3 ICE CREAM AND 2 PUDDINGS FOR LUNCH WHEN SHE ALREAY HAS HAD HIGH PRE MEAL SUGAR WITH INSULIN COVERAGE - ENC. BETTER FOOD CHOICES, COTTEGE CHEESE AND SOUP PROVIDED. PT AGREES. IV FUSING WNL, PT CALL LIGHTS IN REACH.
--- NOTE | 2023-04-20 14:02 | NUR ---
DR MOCK IN ROOM WITH PT. DISCUSS ORAL ABX.
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
--- NOTE | 2023-04-20 15:26 | NUR ---
UR NOTE MCG DIVERTICULITIS, ACUTE (ISC) INPATIENT 04/19/23 MET GL DAY 2 04/20/23 VARIANCE
[2023-04-20 17:33] VITALS: BP 123/55
[2023-04-20 20:32] VITALS: BP 123/58
--- NOTE | 2023-04-20 20:55 | NUR ---
RT IN ROOM. NEBS DONE. COOP WITH ASSESSMENT.
--- NOTE | 2023-04-20 21:32 | NUR ---
PT PROVIDED PUDDING AND BROTH. NO OTHER NEEDS. CALL LIGHT IN REACH.
--- NOTE | 2023-04-20 22:48 | NUR ---
PT IN BED HOB ELEVATED. WATCHING TV. C/O L ABD PAIN, MEDICATED WITH 2 PERCOCET
--- NOTE | 2023-04-21 00:19 | NUR ---
THIS RN NOTED PT SPEAKING TO PRIMARY RN IN A LOUD VOICE. THIS RN STEPPED IN TO ROOM AND PT BEGAN TO LOWER VOICE. PRIMARY RN NELSON ATTEMPTING TO EDUCATE PT ABOUT HER DIET RESTRICTIONS AND LIMITED NUTRITIONAL ITEMS ON THE FLOOR AT NIGHT. THIS RN ALSO REMINDED THE PT THAT WE HAD DISCUSEED AT THE BEGINNING OF SHIFT ABOUT HER ORDERED DIET AND THE LIMITED NUTRITIONAL ITEMS ON THE FLOOR AT NIGHT. THIS RN EXPLAINED THAT WE CURRENTLY ARE OUT OF MANY OF THE ITEMS SHE HAS BEEN CONSUMING AND THAT MANY ITEMS SHE IS REQUESTING IS NOT WITHIN HER DIET ORDER. PT BEGINS TO YELL AT THIS RN THAT "I CAN'T BE THE ONLY ONE EATING ALL THE FOOD!" AND "WHAT AM I SUPPOSED TO EAT?" "I'LL BE OUT OF HERE TOMORROW AND YOU WON'T HAVE TO WORRY ABOUT ME EATING ALL YOUR FOOD!". RN ATTEMPTED TO EXPLAIN, AGAIN, THAT IT IS ADVISED SHE STAY WITHIN HER ORDERED DIET AND OFFERED HER OPTIONS AVAIALBLE ON THE FLOOR AT THIS TIME. RN APOLOGIZED FOR THE LACK OF OPTIONS AND THE FRUSTRATION THE PT IS CURRENTLY EXPRESSING. PT CHOSE 2 PUDDINGS AND 2 CRACKERS. RN EXPLAINED I WOULD GET HER 2 SUGAR FREE PUDDINGS AND CRACKERS. PT STATES SHE DOESN'T WANT THE SUGAR FREE PUDDING. DIET ORDERS DISCUSSED, AGAIN. PT GIVEN THE LAST REGULAR PUDDING AND A SUGAR FREE PUDDING WITH 2 CRACKERS. PT APPEARS SATISFIED WITH RESOLUTION AND "THANKS" STAFF. NO MORE NEEDS AT THIS TIME. CALL LIGHT IN REACH.
--- NOTE | 2023-04-21 01:22 | NUR ---
TRIAL ON RA WHILE ON BIPAP SHOWS DESATURATION TO 85%. RT RECOMMENDS 3 LPM TO BE PUT IN LINE WITH HOME BIPAP.
--- NOTE | 2023-04-21 02:31 | NUR ---
Pt has slept off and on, has used the BIPAP off and on, CPOX at bedside, goes off on and off, dropped to 80-85% when off bipap. wanted to use O2, O2 applied, sats 92%. has had many requests for snacks. Pt informed on diabetic and low fiber diet choices, semireceptive at tiimes. cont to encourage appropriate dietary choices.
--- NOTE | 2023-04-21 02:52 | NUR ---
Up to br, voided, back to bed, independent. on room air, cpox in place 93% at this time. c/o L abd pain, medicated with 2 Percocet. tolerating liquids well. Continues to requests snacks, not compliant with dietary restrictions. cont to encourage dietary compliance. verbal teaching done. semi to not receptive.
--- NOTE | 2023-04-21 04:27 | NUR ---
C/O FEELING NAUSEATED, NO EMESIS. MEDICATED WITH ZOFRAN IV
[2023-04-21 05:37] VITALS: BP 118/54
[2023-04-21 05:37] LABS: BASOPHILS 0.9 % (0-2); EOSINOPHILS 3.2 % (0-6); HEMATOCRIT 40.8 % (35.0-50.0); HEMOGLOBIN 13.5 g/dL (12.0-18.0); LYMPHOCYTES 33.6 % (24-44); MCH 30.4 (27-36); MCV 92.1 fl (81-99); MONOCYTES 5.7 % (0-12); NEUTROPHILS 56.6 % (39-80); PLATELET COUNT 262 K/uL (140-440); RBC 4.43 M/ul (4.3-5.7); RDW 13.4 (10.5-15.0)
--- NOTE | 2023-04-21 05:52 | NUR ---
Pt used call light, asking for more snacks, instructed on appropriate snacks for diet, semi receptive. up to br, voided, back to bed, independent. On room air, CPOX on, sats 91%, no distress, tolertaing liquids
[2023-04-21 05:56] LABS: ALBUMIN 3.2 g/dL (3.4-5.0); ALBUMIN/GLOBULIN RATIO 0.94 (1.1-2.4); ANION GAP 13.4 (7-21); BILIRUBIN, TOTAL 0.2 ng/dL (0.2-1.0); BUN/CREATININE RATIO 17.44 (6.0-28.6); CREATININE, SERUM 0.86 mg/dL (0.55-1.02); POTASSIUM 4.4 mmol/L (3.5-5.1); PROTEIN, TOTAL 6.6 g/dL (6.4-8.2)
--- NOTE | 2023-04-21 06:24 | NUR ---
SLEEPING ON RA AND WAS 80%. WHEN AWAKE 87% ON RA. PATIENT NOT TOLERATING OUR BIPAP. 2 LPM O2 PLACED.
--- NOTE | 2023-04-21 07:13 | NUR ---
Drowsy, c/o L abd pain, medicated with 2 Percocet. no further c/o n/v. Zofran effective.
--- NOTE | 2023-04-21 07:14 | NUR ---
resting, eyes closed, on room air, cpox 89%
[2023-04-21 09:52] VITALS: BP 135/61
--- NOTE | 2023-04-21 10:38 | NUR ---
PATIENT IN BED AWAKE, ALERT AND ORIENTED X4, NO ACUTE DISTRESS. PATIENT REPORTS SHE DID NOT SLEEP WELL LAST NIGHT. PT TO ROOM AIR, RESP EVEN AND NON LABORED. PATIENT REPORTS SHE WOULD LIKE TO DISCHARGE HOME. NO CURRENT NEEDS, PERSONAL SUPPLIES AND CALL LIGHT WITHIN REACH.
--- NOTE | 2023-04-21 11:30 | NUR ---
ADMIN PERCOCET 7.5/325MG PO FOR REPORTS OF 7/10 ABDOMINAL PAIN.
[2023-04-21] MEDS ORDERED: CIPROFLOXACIN500 MG PO (11:56)
[2023-04-21] MEDS ORDERED: METRONIDAZOLE250 MG PO (11:57)
[2023-04-21 12:09] VITALS: BP 149/78
== END 2023-04-21 12:45 | disposition home or self-care (01) | DRG 392 ==
LOC: ED 10:08 → MS 12:54
PROVIDERS: Emergency Medicine; ADMIT Family Medicine; ATTEND Family Medicine
DX: K57.20 Diverticulitis of large intestine with perforation and abscess without bleeding (principal); N39.0 Urinary tract infection, site not specified; F17.210 Nicotine dependence, cigarettes, uncomplicated; E11.9 Type 2 diabetes mellitus without complications; E83.42 Hypomagnesemia; G89.29 Other chronic pain; F31.9 Bipolar disorder, unspecified; F25.9 Schizoaffective disorder, unspecified; F60.3 Borderline personality disorder; F43.10 Post-traumatic stress disorder, unspecified; F41.9 Anxiety disorder, unspecified; M79.7 Fibromyalgia; F12.90 Cannabis use, unspecified, uncomplicated; Z98.890 Other specified postprocedural states; Z90.49 Acquired absence of other specified parts of digestive tract; Z98.1 Arthrodesis status; Z90.710 Acquired absence of both cervix and uterus; Z88.0 Allergy status to penicillin; Z88.8 Allergy status to other drugs, medicaments and biological substances; Z88.5 Allergy status to narcotic agent; Z79.899 Other long term (current) drug therapy; Z79.2 Long term (current) use of antibiotics; Z79.891 Long term (current) use of opiate analgesic; Z90.5 Acquired absence of kidney; Z79.84 Long term (current) use of oral hypoglycemic drugs; Z87.820 Personal history of traumatic brain injury; Z11.52 Encounter for screening for COVID-19
CPT/HCPCS: 36415; 74176; 80053; 81001; 83605; 83735; 84100; 85025; 87502; 94640; 94660; 94762; C9803; J0744; J0780; J1170; J1815; J2270; J2405; J3475; J7121; U0002

== ENCOUNTER 2023-04-28 09:59 | Inpatient (IN) | payer OTHER ==
[~2023-04-28] VITALS: Ht 162.6 cm; Wt 127.1 kg
[~2023-04-28 09:59] MED LIST changes: +CICLOPIROX15 GM TOP; +CIPROFLOXACIN500 MG PO; +LAMOTRIGINE150 MG PO; +METFORMIN HCL500 M1 PO; +METHYLPHENIDATE20 MG PO; +METRONIDAZOLE250 MG PO; +TRIAMCINOLONE A15 G1 TOP
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
[2023-04-28 11:15] LABS: BASOPHILS 0.7 % (0-2); EOSINOPHILS 2.4 % (0-6); HEMATOCRIT 46.2 % (35.0-50.0); HEMOGLOBIN 15.1 g/dL (12.0-18.0); LYMPHOCYTES 22.8 % (24-44); MCH 30.2 (27-36); MCHC 32.7 g/dl (30-36); MCV 92.3 fl (81-99); MONOCYTES 4.9 % (0-12); NEUTROPHILS 69.2 % (39-80); PLATELET COUNT 336 K/uL (140-440); RBC 5.01 M/ul (4.3-5.7); RDW 14.1 (10.5-15.0)
[2023-04-28 11:31] LABS: ALBUMIN 3.4 g/dL (3.4-5.0); ALBUMIN/GLOBULIN RATIO 0.85 (1.1-2.4); ANION GAP 14.8 (7-21); BILIRUBIN, TOTAL 0.2 ng/dL (0.2-1.0); CALCIUM 9.6 mg/dL (8.5-10.1); POTASSIUM 4.8 mmol/L (3.5-5.1); PROTEIN, TOTAL 7.4 g/dL (6.4-8.2)
--- NOTE | 2023-04-28 15:00 | NUR ---
PATIENT ARRIVE TO ROOM 109 WITH DENTAL SCHEDULING COORDINATOR. THIS RN IN TO CHECK PATIENT IN AND WILL GIVE REPORT TO ESAU VELEZ. PATIENT STOOD AND TRANSFERED ON HER OWN TO THE BED AND THEN GOT UP TO THE BATHROOM. PATIENT IS A PERSON STAND-BY ASSIT.
[2023-04-28 15:04] VITALS: BP 150/76
--- NOTE | 2023-04-28 15:30 | NUR ---
PATIENTS URINE CONCENTRATED AND FOUL SMELLING. MD MICHAEL NOTIFIED OF FINDING. NO NEW ORDERS. PATIENT RECENTLY ON ABX FOR UTI PER .
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
--- NOTE | 2023-04-28 16:00 | NUR ---
PATIENT ASSESSMENT COMPLETED. PATIENT HAS REDNESS UNDER HER RIGHT BREAST. PATIENT HAS BEEN USING AN ANTIFUNGAL POWDER TO TREAT. PATIENT INITIAL UPSET ABOUT HER DIET RESTRICTIONS OF CLEAR LIQUID DIET. MD BANDAER IN TO SEE PATIENT FOR CONSULT AND REVIEWED PLAN OF CARE WITH PATIENT. PATIENT WILL REMAIN ON 60G CARB DIET OVER NIGHT AND REASSESS TOMORROW. PATIENT REPORTS ACUTE PAIN 7/10 IN LEFT LOWER FLANK AND CHRONIC PAIN ALL OVER. NEW PRN PAIN MEDICATION PLACED AND ESAU VELEZ WILL BE IN TO ADMINISTER MEDICATIONS WHEN APPROVED. PATIENT HAS HER GLASSES ON, PURSE AT THE BEDSIDE, AND FOOT BOOT PRESENT. PATIENT IS DEMANDING IN HER CARE, BUT STAFF ABLE TO REVIEW PLAN WITH HER. PATIENT PROVIDED WITH 2 CUPS OF CHICKEN BROTH AND SUGAR FREE SPRITE. PATIENT DENIES ANY OTHER NEEDS AT THIS TIME. CALL LIGHT IN REACH. AND PATIENT REMINDED TO CALL FOR ASSITANCE. REPORT GIVEN TO ESAU VELEZ. NO FURTHER QUESTIONS.
--- NOTE | 2023-04-28 17:13 | NUR ---
PT AGREED TO TAKE TYLENOL FOR PAIN. ADMINISTERED TYLENOL PER ORDER. PT THEN DEMANDED I CALL THE DR FOR OTHER PAIN MEDICATIONS. SHE WAS ADVISED TO GIVE THE MSIR AND TYLENOL A CHANCE TO WORK. SHE IS LAYING IN BED WITH EYES CLOSED. DOES NOT APPEAR TO BE IN DISTRESS OR PAIN.
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
--- NOTE | 2023-04-28 17:40 | NUR ---
Patient IV pump alarming, resolved. Pt requests more pain medication and states "morphine only brought pain from 8 to 7", phone call to Dr Gilbert, verbal order to continue patient's home dose of oxy/APAP 7.5/325 1-2 tabs Q6P. Primary RN and patient notified.
--- NOTE | 2023-04-28 19:27 | NUR ---
Report obtained from Neha VELEZ. pt awake, alert and oriented, independent in room. voided, strong smelling medium colored slightly cloudy urine. ivf infusing. pt given diet pop on request. on clear liquids
[2023-04-28 19:50] VITALS: BP 125/64
--- NOTE | 2023-04-28 19:54 | NUR ---
c/o 01/11 abd pain, medicated with morphine 4mg IV
--- NOTE | 2023-04-28 22:18 | NUR ---
in bed watching tv, no requests
--- NOTE | 2023-04-28 22:35 | NUR ---
HARSHAD AND JAKE GIVEN ON REQUEST, IN BED WATCHING TV
--- NOTE | 2023-04-28 23:09 | NUR ---
USED CALL LIGHT, AWAKE, WARM PAD TO ABD GIVEN ON REQUEST. UP TO BRP, VOIDED, BACK TO BED, INDEPENDENT. NOT WEARING R FOOT BOOT AT THIS TIME. FRESH FLUIDS.
--- NOTE | 2023-04-28 23:26 | NUR ---
USED CALL LIGHT, BROTH GIVEN ON REQUESTS, AWAKE, WATCHING TV
--- NOTE | 2023-04-28 23:42 | NUR ---
USED CALL LIGHT, MORE BROTH GIVEN ON REQUESTS
--- NOTE | 2023-04-29 00:01 | NUR ---
MEDICATED WITH 2 PERCOCET C/O 01/11 LEFT ABD PAIN
--- NOTE | 2023-04-29 00:03 | NUR ---
ice cubes given on requests
--- NOTE | 2023-04-29 00:13 | NUR ---
O2 2L NC PLACED ON AT HER REQUESTS, USES CPAP AT HOME, WILL NOTIFY MD IN AM. MORE FRESH FLUIDS GIVEN ON REQUESTS, AND ICE CHIPS.
--- NOTE | 2023-04-29 00:15 | NUR ---
PT USED CALL LIGHT, COBAN PLACED OVER IV SITE REPLACED
--- NOTE | 2023-04-29 00:24 | NUR ---
PT WAS INCONTINENT OF URINE, ATTENDS GIVEN, SHE DID OWN [facility]
--- NOTE | 2023-04-29 01:50 | NUR ---
pt c/o L abd pain, medicated with morphine 4mg IV. in bed,
[2023-04-29 01:52] VITALS: BP 106/84
--- NOTE | 2023-04-29 02:13 | NUR ---
No c/o pain, medicated earlier, used call light at this time, was incontinent of urine, linen and attends changed, does own pericare. clean attends in place. Back to bed. IVF infusing.
--- NOTE | 2023-04-29 02:57 | NUR ---
gown changed, incontinent of urine, attends changed, did own [facility]
--- NOTE | 2023-04-29 02:57 | NUR ---
used call light, broth and ice cup given on requests, awake, watching tv, no other requests, no further c/o pain
--- NOTE | 2023-04-29 03:14 | NUR ---
used call light. watching tv. warm pad to abd given on requests, no other c/o
--- NOTE | 2023-04-29 03:32 | NUR ---
pt used call light, "I want to go for a walk". pt ambulating at this time
--- NOTE | 2023-04-29 04:17 | NUR ---
ambulated tolerated well. Currently in bed, eyes closed, snoring softly, no distress, ivf infusing,
--- NOTE | 2023-04-29 04:45 | NUR ---
used call light, requesting puding, jello and diet pop
[2023-04-29 05:16] LABS: BASOPHILS 0.9 % (0-2); EOSINOPHILS 3.4 % (0-6); HEMATOCRIT 39.9 % (35.0-50.0); HEMOGLOBIN 13.2 g/dL (12.0-18.0); LYMPHOCYTES 35.3 % (24-44); MCH 30.4 (27-36); MCHC 33.1 g/dl (30-36); MCV 91.9 fl (81-99); MONOCYTES 4.3 % (0-12); NEUTROPHILS 56.1 % (39-80); PLATELET COUNT 288 K/uL (140-440); RBC 4.34 M/ul (4.3-5.7); RDW 13.9 (10.5-15.0)
--- NOTE | 2023-04-29 05:33 | NUR ---
pt CALLED AT THIS TIME STATING, "CAN YOU TELL MY NURSE IT'S TIME FOR MY MEDS", pt REFERRING TO PAIN MEDICATION-LAST DOSE GIVEN AT MIDNIGHT. PRIMARY RN MADE AWARE, CURRENTLY IN ANOTHER ROOM. pt CALLED AGAIN AT 0542, pt EDUCATED PRIMARY RN REMAINS UNAVAILABLE AND IN PREVIOUSLY MENTIONED pt ROOM, BUT IS AWARE OF REQUEST AND WILL BE IN SHORTLY TO ASSESS, pt VERBALIZED UNDERSTANDING. CALL LIGHT IN REACH. NO DISTRESS NOTED.
[2023-04-29 05:35] LABS: ALBUMIN 3.2 g/dL (3.4-5.0); ALBUMIN/GLOBULIN RATIO 0.97 (1.1-2.4); ANION GAP 11.1 (7-21); BILIRUBIN, TOTAL 0.3 ng/dL (0.2-1.0); BUN/CREATININE RATIO 12.08 (6.0-28.6); CALCIUM 8.4 mg/dL (8.5-10.1); CREATININE, SERUM 0.91 mg/dL (0.55-1.02); POTASSIUM 4.1 mmol/L (3.5-5.1); PROTEIN, TOTAL 6.5 g/dL (6.4-8.2)
[2023-04-29 05:51] VITALS: BP 115/74
--- NOTE | 2023-04-29 06:02 | NUR ---
In bed, c/o 12/11 abd pain. medicated with Morphine 4mg IV. warm pad to abd. Has been tolerating liquids well, no emesis.
--- NOTE | 2023-04-29 07:34 | NUR ---
PT AWAKE AND INTERACTIVE AT TIME OF SHIFT REPORT. UP TO THE TOILET INDEPENDANTLY THEN RETURNS TO RESTING IN BED. PT REQUESTING FOOD, VERBALIZES UNDERSTANDING SHE IS ON CLEAR LIQUIDS ONLY AT THIS TIME. CHAP STICK PROVIDED AND NEEDED ITEMS AT BEDSIDE
--- NOTE | 2023-04-29 07:50 | NUR ---
RESPONDED TO PT CALL LIGHT. PT REQUESTED "PAIN MEDS". ADVISED PT'S PRIMARY RN OF HER REQUEST.
--- NOTE | 2023-04-29 08:30 | NUR ---
PT CONTINUES TO ASK FOR FOOD. CLEAR LIQUID TRAY SERVED SHE REFUSES ALL ITEMS STATING SHE DOESN'T LIKE THIS OR THAT FOR WHATEVER REASON.
--- NOTE | 2023-04-29 08:45 | NUR ---
RESPOND TO PT CALL LIGHT FOR "I NEED HELP IN THE BATHROOM." WHEN I ARRIVED, PT STATED SHE NEEDS HELP WIPING AFTER HAVING A BOWEL MOVEMENT. ASSISTED PT WITH CLEANING UP. PT HAD A LARGE SOFT BM, NON-FORMED, AND VOIDED 100ML URINE. PT ABLE TO AMBULATE BACK TO BED UNASSISTED. IV POLE PLUGGED IN. PT PROVIDED WITH A CUP OF ICE AND A DIET BILLY TWIST AT HER REQUEST. CALL LIGHT IN REACH.
[2023-04-29 09:36] VITALS: BP 149/84
--- NOTE | 2023-04-29 09:37 | NUR ---
IN FOR VS. DR. MICHAEL IN WITH PT. DR. MICHAEL ADVISED THIS RN THAT HE WILL ALLOW THE PT TO HAVE SOME COTTAGE CHEESE TO SEE HOW HER PAIN IS WITH THAT. ADVISED PT'S PRIMARY RN, AND PT CALLED DOWN TO THE KITCHEN WITH THIS RN PRESENT TO REQUEST COTTAGE CHEESE. CALL LIGHT IN REACH.
--- NOTE | 2023-04-29 10:04 | NUR ---
PT CONTINUES IN BED WATCHING TV. REPORTS DOCTOR GAVE HER PERMISSION FOR COTTAGE CHEESE. NO C/O PAIN AT THIS TIME JUST HUNGER
--- NOTE | 2023-04-29 11:16 | NUR ---
Patient to receive gentamicin 550mg IV q 24 hrs. Pharmacy to monitor renal function and adjust dosing if indicated
--- NOTE | 2023-04-29 11:16 | NUR ---
medications reconciled
--- NOTE | 2023-04-29 11:53 | NUR ---
PT RESTING IN BED ASKING FOR DOULBE PORTION OF COTTAGE CHEESE. SHE IS ALSO REQUESTING DOCTOR MAKE HER PAIN MEDS EVERY 4 HOURS INSTEAD OF EVERY 6, THOUGH SHE IS NOT COMPLAINING OF PAIN AT THIS TIME. SHE STATES EVERY 6 HOURS IS WHAT SHE NORMALLY TAKES AT HOME. CALL LIGHT AND NEEDED ITEMS AT BEDSIDE
--- NOTE | 2023-04-29 12:54 | NUR ---
PT CALLS FOR MORE COTTAGE CHEESE AFTER CLEAR LIQUIDS AND COTTAGE CHEESE ARE SERVED. CONTINUES WATCHING TV AND LAYING IN BED
--- NOTE | 2023-04-29 13:42 | NUR ---
WHILE SCANNING PERCOCET TO GIVE TO PT SHE MAKES THE STATEMENT "I DON'T KNOW HOW TO EXPRESS THAT I DON'T THINK I CAN GET BY WITHOUT THE MORPHINE" ALSO AGAIN REQUESTS THIS MOISTURE MACHINE TENDER DOC TO MAKE PERCOCET Q4 INSTEAD OF Q6. TOLD PT THAT IF HER ABDOMEN IS HURTING TO THAT EXTREME PERHAPS WE NEED TO GO BACK TO NPO TO REST THE BOWEL. DISCUSSED THE INFLAMMATION IN THE BOWEL THAT CAUSES PAIN AND PROVIDED EDUCATION TO THE PROCESS. SHE DENIES FURTHER QUESTIONS
[2023-04-29 14:03] VITALS: BP 139/79
--- NOTE | 2023-04-29 14:04 | NUR ---
In with pt for VS and I&O. Pt is awake, laying supine in bed, watching television. Pt asked about changing the times of the doses of her ritalin to match her dosing schedule at home. I advised her that I would let her nurse know about her request and left Courtney a note. VSS. Denies further needs at this time.
--- NOTE | 2023-04-29 17:18 | NUR ---
CALLED DR STONE FOR PT C/O PAIN UNCONTROLLED HE GIVES VERBAL ORDERS FOR MORPHINE. 2 MG ADMINISTERED. CHECKED BACK WITH PT SHE IS TALKATIVE AND UPBEAT AGREES IT WAS HELPFUL. 30 MINUTES LATER OTHER STAFF REPORT PT C/O 7/10 ABDOMINAL PAIN. WENT TO CHECK ON PT SHE IS STILL TALKATIVE BUT AGREES PAIN IS 7/10. SUGGESTED SHE NOT EAT THE COTTAGE CHEESE WITH THE CLEAR LIQUID TRAY ALLOW HER GUT TO REST. PT STATES SHE WILL EAT THE COTTAGE CHEESE, SHE JUST WON'T COMPLAIN. 30 MINUTES SPENT WITH THIS PT SHE TOLD OF HER DAUGHTER BEING A NURSE AND RANDOM PERSONAL DETAILS. PT LAUGHS EASILY AND IS UPBEAT. VITALS ARE IN NORMAL RANGE. NO OVERT S/S OF DISCOMFORT.
[2023-04-29 17:42] VITALS: BP 152/92
[2023-04-29 20:38] VITALS: BP 141/79
--- NOTE | 2023-04-29 22:03 | NUR ---
in bed, eyes closed, no distress, using bipap. ivf infusing
--- NOTE | 2023-04-29 22:35 | NUR ---
PT AWAKE, ASKING FOR PAIN MED 10/10 LEFT ABDOMINAL SIDE. MEDICATED WITH MORPHINE 2MG IV. USING BIPAP, UP TO BRP,
--- NOTE | 2023-04-30 00:04 | NUR ---
WAS USING CPAP, UP TO BRP, VOIDED, BACK TO BED, SBA, IVF INFUSING.
--- NOTE | 2023-04-30 01:04 | NUR ---
Pt using BIPAP, used call light, very drowsy, 10/10 L abd pain. medicated with 2 percocet
--- NOTE | 2023-04-30 02:10 | NUR ---
wearing BIPAP, no distress, resting, eys closed
--- NOTE | 2023-04-30 02:40 | NUR ---
Awake, drowsy, on room air, IVf infusing, c/o L abd pain 10/10 and insomnia. Medicated with Morphine 2mg IV. fresh fluids, ice chips and diet pop given on requests
--- NOTE | 2023-04-30 04:14 | NUR ---
Awake, on room air, watching tv in bed. jello given on request. IVf infusing, no c/o pain or n/v at this time
[2023-04-30 05:25] LABS: BASOPHILS 1.3 % (0-2); EOSINOPHILS 3.6 % (0-6); HEMATOCRIT 39.9 % (35.0-50.0); HEMOGLOBIN 13.5 g/dL (12.0-18.0); LYMPHOCYTES 33.2 % (24-44); MCH 30.3 (27-36); MCHC 33.8 g/dl (30-36); MCV 89.6 fl (81-99); MONOCYTES 5.1 % (0-12); NEUTROPHILS 56.8 % (39-80); PLATELET COUNT 266 K/uL (140-440); RBC 4.45 M/ul (4.3-5.7); RDW 13.9 (10.5-15.0)
[2023-04-30 05:40] VITALS: BP 133/71
[2023-04-30 05:44] LABS: ALBUMIN 3.2 g/dL (3.4-5.0); ANION GAP 12.3 (7-21); BILIRUBIN, TOTAL 0.3 ng/dL (0.2-1.0); BUN/CREATININE RATIO 13.95 (6.0-28.6); CALCIUM 8.9 mg/dL (8.5-10.1); CREATININE, SERUM 0.86 mg/dL (0.55-1.02); POTASSIUM 4.3 mmol/L (3.5-5.1); PROTEIN, TOTAL 6.4 g/dL (6.4-8.2)
--- NOTE | 2023-04-30 05:44 | NUR ---
VS AND I/O COMPLETED. PT WANTING TO KNOW WHEN NEXT PAIN MED DUE, ACCORDING TO MARS, AFTER 629. IN BED, WATCHING TV, R/A NO OTHER NEEDS
--- NOTE | 2023-04-30 06:38 | NUR ---
Pt awake, on room air, c/o L abd pain. Medicated with Morphine 2mg IV.
--- NOTE | 2023-04-30 06:42 | NUR ---
Pt awake, watching tv. recently medicated with Morphine per Left sided abd pain. Has been medicated 3X with Morphine and 2X's with Percocet 2 tabs each time. stating mild no pain relief. on clear liquids 60G carbs with ok for cottage cheese, has tolerated large amounts of liquids, water, ice chips, diet pop, jello's. no emesis, no n/v. SBA/independent, voiding QS. improving redness to area under breast, gets powder as per orders. used BIPAP ocassionally, slept a couple hours, maybe a total of 3 hours this shift. IVF infusing w/o problems, no c/o s/sx adverse reaction to IV abx
--- NOTE | 2023-04-30 07:33 | NUR ---
REPORT FROM BENJA VELEZ.
--- NOTE | 2023-04-30 08:44 | NUR ---
MORNING ASSESSMENT IS COMPLETE. PATIENT SITTING UP IN BED TO HAVE CLEAR LIQUIDS, WITH ADDITION OF COTTAGE CHEESE. PATIENT GIVEN 2 PERCOCET FOR 7/10 ABDOMINAL PAIN. IV CLINDAMYCIN INFUSING FOR 30 MINUTES. 1UNIT OF INSULIN FOR BG OF 162. CASE MGMT IN TO VISIT WITH PATIENT. NO OTHER NEEDS AT THIS TIME. PATIENT REFUSED ANTIFUNGAL POWDER UNDER BREASTS.
--- NOTE | 2023-04-30 09:00 | NUR ---
Spoke with pt and she states she cont. to live alone. 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 Pt denies needs for new DME. She returned as she did not feel better with antibiotics at home and xrays show worsening status. Pt plan when cleared medically is to return home.
[2023-04-30 09:33] VITALS: BP 146/73
--- NOTE | 2023-04-30 09:37 | NUR ---
PATIENT IN BED WATCHING TV. VITALS AND I&O'S CHARTED. PATIENT ASKING FOR " COTTAGE CHEESE AND SHOT OF MORPHINE BEFORE IT IS DISCONTINUED." RN NOTIFIED. CALL LIGHT IN REACH. NO FURTHER NEEDS AT THIS TIME.
--- NOTE | 2023-04-30 10:15 | NUR ---
NEW BAG OF IVF HANGING. 2MG OF IV MORPHINE GIVEN BEFORE MEDICATIONS D/C. PATIENT CONTINUES TO RATE HER LOWER LEFT ABDOMEN PAIN 7/10 BEFORE AND AFTER ALL PAIN MEDICATIONS. PATIENT REPORTS THAT HER PAIN WAS REDUCED TO 6.5/10 LAST NIGHT.
--- NOTE | 2023-04-30 11:24 | NUR ---
PARIENT IS RESTING IN BED, INTERMITTANTLY SLEEPING.
--- NOTE | 2023-04-30 12:29 | NUR ---
PATIENT GIVEN 2 PERCOCET FOR 7/10 PAIN, 1 UNIT OF INSULIN FOR BG OF 162.
[2023-04-30 13:35] VITALS: BP 129/75
--- NOTE | 2023-04-30 13:47 | NUR ---
MS GARCIA. 15 MINTUES. PROVIDED HOSPITALITY IN FORM OF ACTIVITY BOOKS AND GUIDEPOST. PROVIDED PRAYER. LISTENED EMPATHETICALLY. PT EXPRESSED GRATITUDE AND HOPE.
--- NOTE | 2023-04-30 15:51 | NUR ---
IV CLINDAMYCIN INFUSING FOR 30 MINUTES, TO BE FOLLOWED BY 1 HOUR GENTAMYCIN.
--- NOTE | 2023-04-30 16:30 | NUR ---
PATIENT GIVEN 2 PERCOCET FOR 7/10 LLQ PAIN. PATIENT GIVEN SCHEDULED RITALIN. IV GENTAMYCIN INFUSING FOR 1 HOUR.
[2023-04-30 17:59] VITALS: BP 141/74
--- NOTE | 2023-04-30 18:02 | NUR ---
PATIENT IN BED WATCHING TV. VITALS AND I&O'S CHARTED. CALL LIGHT IN REACH. NO FURTHER NEEDS AT THIS TIME.
--- NOTE | 2023-04-30 18:47 | NUR ---
PATIENT IS RESTING IN BED, RATES HER PAIN 6.5/10.
--- NOTE | 2023-04-30 19:37 | NUR ---
RECEIVED REPORT FROM DAY SHIFT RN. PATIENT IS RESTING IN BED WATCHING TV. PATIENT DENIES ANY NEEDS AT THIS TIME. CALL LIGHT IN REACH.
[2023-04-30 20:14] VITALS: BP 146/84
--- NOTE | 2023-04-30 20:37 | NUR ---
PATIENTS VITALS TAKEN AND RECORDED. PATIENTS INTAKE AND OUTPUT AND RECORDED. PATIENTS PM MEDS GIVEN PER ORDER. PATIENT RATES PAIN IN HER LOWER ADB AT A 7/10, PRN PAIN MEDICATION GIVEN PER ORDER. PATIENTS BS WNL NO SS GIVEN PER ORDER. PATIENTS IV INFUSING PER ORDER. PATIENT DENIES ANY NAUSEA. FRESH ICE WATER AND SF SPRITE PROVIDED. PATIENT IS AAOX4. RT NOTIFIED PATIENT WOULD LIKE TO BE PLACED ON BIPAP. PAITENT DENIES ANY FURTHER NEEDS. CALL LIGHT IN AND BELONGINGS ARE WITHIN REACH.
--- NOTE | 2023-04-30 22:32 | NUR ---
PATIENT IS RESTING IN BED WITH EYES CLOSED, RR 16. PATIENT IS WEARING BIPAP. CALL LIGHT IN REACH.
--- NOTE | 2023-05-01 00:26 | NUR ---
PATIENT BACK TO BED FROM . PATIENTS IV ABX INFUSING PER ORDER. PATIENT RATES PAIN IN HER LOW ABD AT A 7/10, PRN PAIN MEDICATION GIVEN PER ORDER. PATIENT DENIES ANY FURTHER NEEDS. CALL LIGHT AND BELONGINGS ARE WITHIN REACH.
--- NOTE | 2023-05-01 02:42 | NUR ---
PATIENT RESTING IN BED ON BACK. PATIENT AWAKE AND REPORTS DIFFICULTY SLEEPING BUT HAS NO CURRENT NEEDS. CALL LIGHT IN REACH.
--- NOTE | 2023-05-01 04:14 | NUR ---
PATIENT RESTING IN BED ON BACK. PATIENT AWAKE AND STATES NO FURTHER NEEDS. CALL LIGHT IN REACH.
[2023-05-01 05:02] VITALS: BP 151/95
--- NOTE | 2023-05-01 05:09 | NUR ---
CALL LIGHT ANSWERED. PATIENT REPORTING 7/10 PAIN IN LLQ. PRN PAIN MEDICAITON ADMINISTERED. VS AND I&Os OBTAINED AND RECORDED. ASSESSMENT COMPLETE. BOWEL TONES ACTIVE IN ALL 4 QUADRANTS. NO NAUSEA NOTED. PATIENT STATES NO FURTHER NEEDS. CALL LIGHT IN REACH.
[2023-05-01 05:26] LABS: BASOPHILS 0.6 % (0-2); EOSINOPHILS 3.6 % (0-6); HEMATOCRIT 40.2 % (35.0-50.0); HEMOGLOBIN 13.6 g/dL (12.0-18.0); LYMPHOCYTES 26.5 % (24-44); MCH 30.5 (27-36); MCHC 33.8 g/dl (30-36); MCV 90.3 fl (81-99); MONOCYTES 5.4 % (0-12); NEUTROPHILS 63.9 % (39-80); PLATELET COUNT 281 K/uL (140-440); RBC 4.45 M/ul (4.3-5.7); RDW 13.7 (10.5-15.0)
[2023-05-01 05:42] LABS: ALBUMIN 3.3 g/dL (3.4-5.0); ALBUMIN/GLOBULIN RATIO 1.06 (1.1-2.4); ANION GAP 11.9 (7-21); BILIRUBIN, TOTAL 0.4 ng/dL (0.2-1.0); BUN/CREATININE RATIO 11.49 (6.0-28.6); CREATININE, SERUM 0.87 mg/dL (0.55-1.02); POTASSIUM 3.9 mmol/L (3.5-5.1); PROTEIN, TOTAL 6.4 g/dL (6.4-8.2)
--- NOTE | 2023-05-01 07:39 | NUR ---
RECEIVED REPORT FROM ROSIE CARBAJAL AND ROSIE ADAMS. PT RESTING IN BED WITH EYES CLOSED, EVEN AND UNLABORED BREATHING. CALL LIGHT WITHIN REACH, BED RAILS UP. ASSUMING CARE OF PT WITH ROSIE GODOY.
--- NOTE | 2023-05-01 07:45 | NUR ---
REPORT RECEIVED FROM ROSIE PATEL. PT RESTING IN BED WITH EYES CLOSED. RESPIRATIONS EVEN AND UNALBORED. HEAD OF BED AT 20 DEGREES. PT ALLOWED TO REST. CALL LIGHT WITHIN REACH. BED RAILS UP.
--- NOTE | 2023-05-01 09:23 | NUR ---
MORNING ASSESSMENT AND MEDICATION DUE. PT RESTING IN BED, HEAD OF BED AT 32 DEGREES. PT ALERT AND OREINTED TO ALL. PT REPORTS 7/10 PAIN IN LLQ OF ABDOMEN. PT REQUESTS PAIN MEDICATION. SEE MAR FOR MEDICATION GIVEN. PT ALSO REQUESTS TO ADVANCE HER DIET AND "GET MORE FOOD." EDUCATION DONE WITH PT. PT ENCORAUGED TO GET UP OUT OF BED TO CHAIR OR TO AMBULATE. PT DECLINES. HEART TONES REGULAR. LUNG SOUNDS CLEAR. OCCATIONAL COUGH HEARD. NO SPUTUM SEEN. PT STATES "IT'S JUST A SMOKERS COUGH." PT REPORTS OCCATIONAL ONGOING PAIN TO RIGHT FOOT. NO OPEN WOUND (HEALED). MILD ERYTHEMA TO MEDIAL BIG TOE. ABDOMEN SOFT. BOWEL TONES ACTIVE. RIGHT LOWER QUADRANT TENDER TO TOUCH. PT REPORTS PASSING GAS. PT DENIES NAUSEA. SKIN INTACT, MICOLAZOLE POWDER APPLIED UNDER RIGHT BREAST FOR REDNESS. SKIN UNDER PANNUS AND LEFT BREAST WNL. NO ADDITIONAL REQUESTS OR COMPLAINTS. CALL LIGHT WITHIN REACH. BED RAILS UP.
[2023-05-01 09:24] VITALS: BP 148/83
--- NOTE | 2023-05-01 10:47 | NUR ---
HOURLY ROUNDING: PT RESTING IN BED WITH EYES CLOSED, RESPRIATIONS EVEN AND UNLABORED. HEAD OF BED AT 30 DEGREES. PT ALLOWED TO REST. CALL LIGHT WITHIN REACH. BED RAILS UP.
--- NOTE | 2023-05-01 11:31 | NUR ---
HOURLY ROUNDING: PT RESTING IN BED WITH EYES CLOSED, RESPIRATIONS EVEN AND UNLABORED. NO ADDITIONAL NEEDS AT THIS TIME. CALL LIGHT WITHIN REACH. BED RAILS UP.
--- NOTE | 2023-05-01 11:43 | NUR ---
PT AWAKE AND ALERT, SITTING UP IN BED. PT ENCOURAGED TO GET UP TO CHAIR FOR LUNCH. PT DECLINES. PT REPORTS PAIN HAS IMPROVED, NOW 11/11. PT DENIES NEED FOR ADDITIONAL PAIN MEDICATION AT THIS TIME. BLOOD SUGAR WITHIN RANGE. PT UPDATED ON PLAN OF CARE. NO ADDITIONAL REQUESTS OR COMPLAINTS. [facility]. BED RAILS UP.
--- NOTE | 2023-05-01 12:28 | NUR ---
HOURLY ROUNDING: PT FINISHED WITH LUNCH AND REPORS NO INCREASE IN PAIN. PT DENIES NAUSEA AT THIS TIME. PT REPORTS SHE IS READY TO GET UP TO THE CHAIR. STAND BY ASSIST FOR LINE AND TUBE MANAGEMENT UP TO CHAIR. PT REQUESTS "MORE FOOD." EDUCATION DONE WITH PT REGARDING PAIN MANAGEMENT VERSES INCREASED INTAKE, PT VERBALIZES UNDERSTANDING. PT ENCORUAGED TO FINISH ADDITIONAL ITEMS ON HER LUNCH TRAY IF SHE FEELS READY. PT DENIES ADDITIONAL REQUESTS OR COMPLAINTS. CALL LIGHT WITHIN REACH.
[2023-05-01 13:33] VITALS: BP 152/85
--- NOTE | 2023-05-01 13:37 | NUR ---
AFTERNOON ASSESSMENT. PT STATES PAIN IS CURRENTLY 6/10, REQUESTS PAIN MEDICATION, GIVEN (SEE EMAR). PT IS UP TO CHAIR, REQUESTS TO GO TO RESTROOM AND THEN TO BED, PT AMBULATES VIA SBA FOR LINE AND TUBE MANAGEMENT. PT STATES PAIN REMAINS 6/10 AFTER AMBULATING, PT STATES "I NORMALLY TAKE SIX OF THESE PERCOCET A DAY AT HOME". IVF INFUSING PER ORDER, IV SITE PATENT AND WNL. PULSES STRONG IN ALL EXTREMETIES BUT FOR PT'S RLE, TRACE EDEMA PRESENT AND SOME REDNESS AND BRUISE PRESENT FROM PREVIOUS WOUND THAT CONTINUES TO HEAL. PT STATES SHE IS FEELING "BLOATED" THIS AFTERNOON. ABDOMEN IS MILDLY DISTENTED, TENDER ON LEFT UPPER AND LOWER QUANDRANTS TO LIGHT TOUCH. ACTIVE BOWEL TONES PRESENT IN ALL QUANDRANTS, PT DENIES NAUSEA AT THIS TIME. PT TOLERATING FULL LIQUID DIET WELL, STATES PAIN DOES NOT INCREASE AFTER EATING. PT VOIDING QUANTITY SUFFICIENT. SKIN UNDER RIGHT BREAST CONTINUES TO BE REDDENED, PT STATES "IT ITCHES" POWDER IN PLACE. PT CONTINUES TO ASK FOR ADDITIONAL FOODS, EDUCATION PROVIDED ON COMPONENTS OF DIET RELATED TO CURRENT ILLNESS, PT VERBALIZES UNDERSTANDING. PT STATES NO FURTHER NEEDS AT THIS TIME, CALL LIGHT WITHIN REACH, BED RAILS UP, HOB 34 DEGREES.
--- NOTE | 2023-05-01 14:20 | NUR ---
Spoke with Ezra and she denies needs. Pt's diet has been advanced and pt feels she is tolerating the food well. No plan for dc today.
--- NOTE | 2023-05-01 14:30 | NUR ---
HOURLY ROUNDING: PT RESTING IN BED WITH EYES CLOSED, RESPIRATIONS EVEN AND UNLABORED. BED RAILS UP. CALL LIGHT WITHIN REACH. PT ALLOWED TO REST.
--- NOTE | 2023-05-01 15:41 | NUR ---
HOURLY ROUNDING AND MEDICATIONS DUE, GIVEN. PT RESTING WITH EYES CLOSED IN BED, STARTLES TO RN COMING INTO ROOM. PT STATES PAIN IS UNCHANGED AT 610. PT REQUESTING SNACKS, GIVEN, EDUCATION GIVEN ON TYPES OF SNACKS AND EATING BEFORE DINNER IN RELATION TO HER CURRENT ILLNESS, PT VERBALIZES UNDERSTANDING. PT STATES NO FURTHER NEEDS AT THIS TIME, CALL LIGHT WITHIN REACH, BED RAILS UP.
--- NOTE | 2023-05-01 16:49 | NUR ---
HOURLY ROUNDING AND MEDICATIONS DUE, GIVEN (SEE EMAR). PT STATES PAIN IS "ABOUT THE SAME" BEFORE, DENIES NEED FOR PAIN MEDICATION AT THIS TIME. PT STATES NO FURTHER NEEDS AT THIS TIME. CALL LIGHT WITHIN REACH, BED RAILS UP.
[2023-05-01 17:25] VITALS: BP 152/92
--- NOTE | 2023-05-01 17:33 | NUR ---
HOURLY ROUNDING. PT STATES PAIN IS 6/10, REQUESTING PAIN MEDICATION, GIVEN (SEE EMAR). PT STATES NO FURTHER NEEDS AT THIS TIME, PT BACK TO BED ATER USING RESTROOM WITH SBA FROM ELLI RUBIO. CALL LIGHT WITHIN REACH, BED RAILS UP.
--- NOTE | 2023-05-01 17:56 | NUR ---
PT HERE FOR DIVERTICULITIS. PT AMBULATES INDEPENDENTLY WITH LINE AND TUBE MANAGEMENT. PT TOLERATES FULL LIQUID DIET WELL, REQUESTS MULTIPLE SNACKS THROUGHOUT SHIFT. PAIN 6/10 IN LEFT ABDOMEN THROUGHOUT THIS SHIFT, PRN PAIN MEDICATIONS GIVEN (SEE EMAR). ABDOMEN REMAINS MILDLY DISTENTED, SOFT, NON-TENDER. BOWEL TONES REMAIN ACTIVE. EXTENSIVE EDUCATION DONE ON PAIN RELATED TO FOOD INTAKE AND CURRENT ILLNESS THIS SHIFT. PT VOIDING QUANTITY SUFFICIENT, LAST BM 04/29/23. REDNESS AND BRUISE REMAIN ON R FOOT FROM PREVIOUS WOUND, NO CHANGE THIS SHIFT. PT USES CALL LIGHT APPROPRIATELY.
--- NOTE | 2023-05-01 18:32 | NUR ---
HOURLY ROUNDING. PT STATES PAIN IS 6/10 AT THIS TIME. PT STATES NO FURTHER NEEDS AT THIS TIME. CALL LIGHT WITHIN REACH, BED RAILS UP.
--- NOTE | 2023-05-01 19:03 | NUR ---
SHIFT REPORT RECEIVED FROM DAYSHIFT ROSIE MELÉNDEZ AND ROSIE GODOY, pt AWAKE AND RESTING IN BED, WATCHING TV. ON RA, RR EVEN AND UNLABORED, NO DISTRESS NOTED. IV SITE WNL, IV FLUIDS INFUSING DIRECTED. BOARD UPDATED, NO NEEDS OR CONCERNS VERBALIZED, CALL LIGHT IN REACH.
[2023-05-01 20:15] VITALS: BP 131/74
--- NOTE | 2023-05-01 20:30 | NUR ---
ASSESSMENT COMPLETE, SCHEDULED MEDS GIVEN-SEE EMAR. pt REPORTS ABD PAIN /, DENIES NAUSEA. VSS, I&O'S COLLECTED. IV SITE WNL, FLUSHED WITH 10MLS SALINE-IV FLUIDS INFUSING DIRECTED. DESENEX POWDER APPLIED UNDER BILATERAL BREASTS. pt UP TO VOID, STEADY ON FEET. CALL LIGHT IN REACH. pt EDUCATED NEXT AVAILABLE PAIN MEDS AT APPROX 2130-pt VERBALZIED UNDERSTANDING.
--- NOTE | 2023-05-01 22:27 | NUR ---
pt CALLED, ASKING FOR PAIN MEDICATION. PER EMAR, pt HAS HAD MAX 10 TABLETS/DAY. DISCUSSED WITH LIME SUPERVISOR RAVEN AND CALL MADE TO DR MICHAEL REGARDING ORDER. IF pt HAS ANOTHER 2 TABS, TOTAL TYLENOL INTAKE FOR LAST 24HRS IS 3,900MG, READ BACK VIA PHONE FROM DR MICHAEL, OKAY TO GIVE X2 TABS PRN PERCOCET. ALSO CLARIFIED ORDER WITH DR MICHAEL ORDER IS PERCOCET (7.5MG OXYCODONE AND 325MG TYLENOL) 1-2 TABS Q4H PRN. IN SPECIAL INSTRUCTIONS, IT STATES Q6H PRN. READ BACK FROM DR MICHAEL, ORDER IS IN FACT FOR Q4H PRN. LIME SUPERVISOR TO UPDATE IN EMAR. PRN PAIN MEDICAITON GIVEN, pt RATES PAIN AT 6/10 IN ABD. SNACK ALSO PROVIDED. WHEN ASKED IF pt FEELS SHE IS READY TO GO HOME, pt STATES, "OH YES, I'M VERY EXCITED TO GO HOME. I'M JUST STILL A LITTLE NERVOUS AND WANT TO MAKE SURE MY ANTIBIOTICS STILL WORK". CALL LIGHT IN REACH. IV SITE WNL, FLUIDS INFUSING DIRECTED.
--- NOTE | 2023-05-01 23:09 | NUR ---
call light answered, pt placed on bipap at this time per pt request. 16/12, 28% o2. cpox also in place, spo2 99%, hr wnl. no distress noted, pt left resting quietly in bed and watching tv. call light in reach. 300mls output also noted.
--- NOTE | 2023-05-01 23:42 | NUR ---
scheduled iv abx infusing as directed, iv site remains wnl. no additional needs or concerns verbalized. call light in reach.
--- NOTE | 2023-05-02 00:52 | NUR ---
rounded on pt, pt resting quietly in bed with eyes closed, bipap remains on, cpox shows spo2 in upper 90's and hr wnl. no distress noted, call light remains in reach of pt along with other personal belongings.
[2023-05-02 01:02] VITALS: BP 113/56
--- NOTE | 2023-05-02 01:05 | NUR ---
call light answered, pt off bipap at this time by pharmacist in chargequentin schwarz.
--- NOTE | 2023-05-02 01:31 | NUR ---
call light answered, pt requesting additional snacks, sf vanilla pudding, fresh ice water, and diet sprite. no diet sprite available, diet neil sera offered-pt declined. pt asked about her next available pain medication, pt educated on next availability, no additional needs or concerns verbalized, call light in reach.
--- NOTE | 2023-05-02 02:46 | NUR ---
call light answered, pt requesting prn pain medication, reprots pain 6/10 (pain has remained 6/10 for entirety of shift). pt educated on tylenol consumption and rn educated and suggests if able to start spacing out prn pain medication as pt is hopeful to be discharged home today, pt states, "i'll try". no acute changes w/ assessment, call light in reach.
--- NOTE | 2023-05-02 03:35 | NUR ---
ROUNDED ON pt, pt REMAINS AWAKE AND PLAYING GAME ON PHONE. TV REMAINS ON. pt REPORTS HX INSOMNIA, STATING, "I'VE ONLY SLEPT LIKE TWO HOURS SINCE I'VE BEEN HERE". FRESH WATER PROVDIED PER pt REQUEST, CALL LIGHT IN REACH. IV SITE WNL, FLUIDS INFUSING DIRECTED.
--- NOTE | 2023-05-02 04:51 | NUR ---
rounded on pt, pt resting in bed with eyes closed. on ra, rr even and unlabored. no distress noted. call light in reach.
[2023-05-02 05:21] VITALS: BP 132/53
[2023-05-02 05:22] LABS: BASOPHILS 0.9 % (0-2); EOSINOPHILS 3.7 % (0-6); HEMATOCRIT 39.8 % (35.0-50.0); HEMOGLOBIN 13.4 g/dL (12.0-18.0); LYMPHOCYTES 29.7 % (24-44); MCH 30.5 (27-36); MCHC 33.8 g/dl (30-36); MCV 90.2 fl (81-99); MONOCYTES 6.3 % (0-12); NEUTROPHILS 59.4 % (39-80); PLATELET COUNT 264 K/uL (140-440); RBC 4.41 M/ul (4.3-5.7); RDW 13.8 (10.5-15.0)
--- NOTE | 2023-05-02 05:26 | NUR ---
ROUNDED ON pt, EDITOR MAGAZINE IN ROOM COLLECTING VS AND I&O'S. IV SITE WNL, FLUIDS INFUSING DIRECTED. CALL LIGHT IN REACH. NO ADDITIONAL NEEDS OR CONCERNS VERBALZIED BY pt.
--- NOTE | 2023-05-02 05:26 | NUR ---
SPECIAL EDUCATION PARAPROFESSIONAL CHECKED ON PT AND TOOK VITOLES AND I AND O PT HAS NO NEEDS OF NOW.
[2023-05-02 05:37] LABS: ALBUMIN 3.3 g/dL (3.4-5.0); ANION GAP 11.9 (7-21); BILIRUBIN, TOTAL 0.3 ng/dL (0.2-1.0); BUN/CREATININE RATIO 14.77 (6.0-28.6); CALCIUM 9.1 mg/dL (8.5-10.1); CREATININE, SERUM 0.88 mg/dL (0.55-1.02); POTASSIUM 3.9 mmol/L (3.5-5.1); PROTEIN, TOTAL 6.6 g/dL (6.4-8.2)
--- NOTE | 2023-05-02 08:08 | NUR ---
MORNING ASSESSMENT AND MEDICATIONS DUE, GIVEN (SEE EMAR). PT STATES PAIN IS 6/10, REQUESTS PAIN MEDICATION, GIVEN (SEE EMAR). EDUCATION WITH PT ON WALKING PRIOR TO GOING HOME, PT AGREES THAT "IT MIGHT BE A GOOD IDEA" TO GO FOR WALK PRIOR TO DC, PT STATES "MAYBE AFTER LUNCH" WHEN ASKED WHEN. TRACE EDEMA IN R FOOT REMAINS, CONTINUES TO BE NUMB WHICH IS BASELINE PER PT. PREVIOUS WOUND AREA ON FOOT CONTINUES TO BE TENDER AND HAVE MILD REDNESS/BRUISING. ABDOMEN MILDLY DISTENDED, SOFT, TENDER TO LEFT SIDE. ACTIVE BOWEL TONES PRESENT IN ALL QUADRANTS, PT DENIES NAUSEA, LAST BM TWO DAYS AGO (04/30/23) PER PT. PT CONTINUES TO TOLERATE FULL LIQUID/ADA DIET WELL. PT VOIDING QUANTITY SUFFICIENT. SKIN UNDER BREAST HAS DECREASED REDNESS COMPARED TO PREVIOUS, DESENEX POWDER APPLIED PER ORDER (SEE EMAR). PT AWAITING BREAKFAST AT THIS TIME, GETS UP TO RESTROOM AND BACK INDEPENDENTLY THIS MORNING, REFUSES TO GET UP TO CHAIR. PT STATES NO FURTHER NEEDS AT THIS TIME, CALL LIGHT WITHIN REACH, BED RAILS UP.
[2023-05-02 09:30] VITALS: BP 127/61
--- NOTE | 2023-05-02 09:45 | NUR ---
Spoke with Ezra. She plans on dc to day. Feeling much better. Will need a care ride and stop at the pharmacy for RX's. Denies other needs. Home today.
--- NOTE | 2023-05-02 10:03 | NUR ---
HOURLY ROUNDING. DC'D FLUIDS PT IS GETTING READY TO DC. PT ASKS QUESTIONS ABOUT TIMING OF DC, ANSWERED. PT STATES NO FURTHER NEEDS AT THIS TIME, STATES PAIN REMAINS AT 6/10. CALL LIGHT WITHIN REACH, BED RAILS UP. PT UP TO RESTROOM INDEPENDENTLY AND BACK TO BED.
--- NOTE | 2023-05-02 10:40 | NUR ---
DISCHARGE NOTE. VSS. PT ALERT AND ORIENTED, DISCHARGE EDUCATION AND PACKET GIVEN, PT VERBALIZES UNDERSTANDING OF FOLLOW-UPS, MEDICATIONS, INSTRUCTIONS, AND TEACH BACK PERFORMED. ALL PERSONAL BELONGINGS REVIEWED AN IN PT POSESSION UPON DISCHARGE. PT STATES ALL QUESTION AND CONCERNS HAVE BEEN ANSWERED. PT IN PAJAMAS FROM HOME, TIE PANTS PROVIDED FOR DC. RIDE CALLED FOR PT. IV REMOVED WNL, CATHETER INTACT, SITE WRAPPED WITH GAUZE AND COBAN PER PROTOCOL, EDUCATION ON IV DC, PT VERBALIZES UNDERSTANDING. PT AMBULATES TO WHEELCHAIR, IS WHEELED TO FRONT OF BUILDING BY NURSING PERSONEL.
== END 2023-05-02 10:40 | disposition home or self-care (01) | DRG 392 ==
LOC: ED 09:59 → MS 14:33
PROVIDERS: Emergency Medicine; ADMIT Family Medicine; ATTEND Family Medicine
DX: K57.32 Diverticulitis of large intestine without perforation or abscess without bleeding (principal); F31.9 Bipolar disorder, unspecified; E11.9 Type 2 diabetes mellitus without complications; S91.331A Puncture wound without foreign body, right foot, initial encounter; G89.29 Other chronic pain; F41.9 Anxiety disorder, unspecified; M79.7 Fibromyalgia; F43.10 Post-traumatic stress disorder, unspecified; E66.9 Obesity, unspecified; F60.3 Borderline personality disorder; F25.9 Schizoaffective disorder, unspecified; X58.XXXA Exposure to other specified factors, initial encounter; F17.210 Nicotine dependence, cigarettes, uncomplicated; Z90.49 Acquired absence of other specified parts of digestive tract; Z98.890 Other specified postprocedural states; Z98.1 Arthrodesis status; Z90.710 Acquired absence of both cervix and uterus; Z88.8 Allergy status to other drugs, medicaments and biological substances; Z87.820 Personal history of traumatic brain injury; Z90.5 Acquired absence of kidney; Z88.0 Allergy status to penicillin; Z88.1 Allergy status to other antibiotic agents; Z88.5 Allergy status to narcotic agent; Z79.2 Long term (current) use of antibiotics; Z79.899 Other long term (current) drug therapy; Z79.84 Long term (current) use of oral hypoglycemic drugs; Z79.891 Long term (current) use of opiate analgesic
CPT/HCPCS: 36415; 74177; 80053; 80170; 85025; 85060; 94660; 94760; 94762; A9270; C9113; J1170; J1580; J1815; J2270; J2405; J7060; J7121; Q9967

== ENCOUNTER 2023-05-07 19:14 | Emergency (ER) | payer OTHER ==
[~2023-05-07] VITALS: Ht 162.6 cm; Wt 115.4 kg
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
[2023-05-07 20:49] LABS: HEMATOCRIT 49.2 % (35.0-50.0); HEMOGLOBIN 16.5 g/dL (12.0-18.0); MCH 30.4 (27-36); MCHC 33.6 g/dl (30-36); MCV 90.5 fl (81-99); PLATELET COUNT 450 K/uL (140-440); RBC 5.43 M/ul (4.3-5.7); RDW 14.1 (10.5-15.0)
[2023-05-07 20:58] LABS: ALBUMIN/GLOBULIN RATIO 0.95 (1.1-2.4); ANION GAP 18.5 (7-21); BILIRUBIN, TOTAL 0.5 ng/dL (0.2-1.0); BUN/CREATININE RATIO 24.8 (6.0-28.6); CALCIUM 10.6 mg/dL (8.5-10.1); CREATININE, SERUM 1.29 mg/dL (0.55-1.02); POTASSIUM 4.5 mmol/L (3.5-5.1); PROTEIN, TOTAL 8.2 g/dL (6.4-8.2)
[2023-05-07 21:00] LABS: BASOPHILS, MANUAL DIFF 1; LYMPHOCYTES, MANUAL DIFF 49; MONOCYTES, MANUAL DIFF 5; NEUTROPHILS, MANUAL DIFF 45
[2023-05-07 21:02] LABS: LACTIC ACID, BLOOD 1.7 mmol/L (0.4-2.0)
[2023-05-07 23:02] LABS: BILIRUBIN, URINE NEGATIVE (negative); BLOOD/HGB, URINE NEGATIVE (Negative); KETONE, URINE NEGATIVE (Negative); LEUK ESTERASE, URINE NEGATIVE (negative); NITRITE, URINE NEGATIVE (negative); PH, URINE 5.5 (5-7)
[2023-05-07 23:07] LABS: EPITHELIAL CELLS, URINE SQUAMOUS 2+ /lpf (0-1+)
[2023-05-07 23:08] LABS: BACTERIA, URINE RARE /hpf (negative); CASTS, URINE NONE SEEN \\lpf; CRYSTALS, URINE NONE SEEN (0-1+); REFLEX CULTURE, URINE No (No)
[2023-05-07] MEDS ORDERED: PERCOCET 5-3251 EACH PO (23:16)
[2023-05-07] MEDS ORDERED: METRONIDAZOLE500 MG PO (23:16)
[2023-05-07] MEDS ORDERED: ONDANSETRON ODT8 MG PO (23:16)
[2023-05-07] MEDS ORDERED: CIPRO500 MG PO (23:16)
[2023-05-08 00:18] VITALS: BP 107/82
== END 2023-05-08 00:18 | disposition home or self-care (01) ==
LOC: ED 19:14
PROVIDERS: Family Medicine
DX: K57.32 Diverticulitis of large intestine without perforation or abscess without bleeding (principal); F31.9 Bipolar disorder, unspecified; F25.9 Schizoaffective disorder, unspecified; F17.200 Nicotine dependence, unspecified, uncomplicated; Z88.0 Allergy status to penicillin; Z88.8 Allergy status to other drugs, medicaments and biological substances; Z88.1 Allergy status to other antibiotic agents; Z88.6 Allergy status to analgesic agent; Z88.5 Allergy status to narcotic agent; Z79.899 Other long term (current) drug therapy; Z79.84 Long term (current) use of oral hypoglycemic drugs
CPT/HCPCS: 36415; 74177; 80053; 81001; 83605; 83690; 85025; A9270; J2270; J2405; J3010; J3490; J7030; Q9967

== ENCOUNTER 2023-05-23 09:10 | Observation (INO) | payer OTHER ==
[~2023-05-23] VITALS: Ht 162.6 cm; Wt 119.4 kg
[~2023-05-23 09:10] MED LIST changes: +METRONIDAZOLE500 MG PO; +PERCOCET 5-3251 EACH PO
--- OUTSIDE RECORDS SUMMARY | 2023-05-23 09:23 | XMS ---
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 Security Farm Equipment Service Technician Events 1 event(s) in the past 18 months Most recent security events: Elopement at [facility] 07/31/2022 14:18 - Patient eloped with IV in place. - Patient eloped before treatment completed. - Patient with suicidal and/or homicidal ideations eloped. Details: Patient LWBS
[2023-05-23] MEDS ORDERED: METRONIDAZOLE250 MG PO (09:40)
[2023-05-23 09:57] LABS: BASOPHILS 0.5 % (0-2); EOSINOPHILS 0.9 % (0-6); HEMATOCRIT 49.7 % (35.0-50.0); HEMOGLOBIN 16.5 g/dL (12.0-18.0); LYMPHOCYTES 21.3 % (24-44); MCH 30.3 (27-36); MCHC 33.2 g/dl (30-36); MCV 91.3 fl (81-99); MONOCYTES 4.5 % (0-12); NEUTROPHILS 72.8 % (39-80); PLATELET COUNT 358 K/uL (140-440); RBC 5.44 M/ul (4.3-5.7); RDW 14.8 (10.5-15.0)
[2023-05-23 10:12] LABS: ALBUMIN/GLOBULIN RATIO 1.03 (1.1-2.4); ANION GAP 16.6 (7-21); BILIRUBIN, TOTAL 0.3 ng/dL (0.2-1.0); BUN/CREATININE RATIO 16.23 (6.0-28.6); CALCIUM 10.8 mg/dL (8.5-10.1); CREATININE, SERUM 1.17 mg/dL (0.55-1.02); POTASSIUM 4.6 mmol/L (3.5-5.1); PROTEIN, TOTAL 7.9 g/dL (6.4-8.2)
[2023-05-23 12:07] LABS: BILIRUBIN, URINE NEGATIVE (negative); BLOOD/HGB, URINE NEGATIVE (Negative); KETONE, URINE NEGATIVE (Negative); LEUK ESTERASE, URINE NEGATIVE (negative); NITRITE, URINE NEGATIVE (negative)
[2023-05-23 12:16] LABS: CRYSTALS, URINE NONE SEEN (0-1+); EPITHELIAL CELLS, URINE SQUAMOUS 1+ /lpf (0-1+); RED BLOOD CELLS, URINE 0-1 /hpf (0-5)
[2023-05-23 12:17] LABS: BACTERIA, URINE 1+ /hpf (negative); CASTS, URINE HYALINE 1+ \\lpf
[2023-05-23 12:18] LABS: COLLECTION TYPE, URINE CLEAN CATCH; REFLEX CULTURE, URINE No (No)
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
[2023-05-23 13:51] VITALS: BP 146/70
--- NOTE | 2023-05-23 15:14 | NUR ---
THIS RN TALKED TO DR. MANDEL REGARDING PT REQUESTING HOME PAIN MEDICATION. NO NEW ORDERS. ALSO ASKED DR. MANDEL IF PT CAN HAVE ICE CHIPS. PER DR. MANDEL "OKAY TO HAVE ICE CHIPS."
--- NOTE | 2023-05-23 15:24 | NUR ---
IN TO ADMINISTER PRN PAIN MEDICATION, SEE MAR. PT DENIES ANY OTHER NEEDS AT THIS TIME. CALL LIGHT IN REACH. PT ASKING ABOUT TRAZADONE FOR SLEEP. THIS RN TALKED TO DR. MANDEL. AWARE.
--- NOTE | 2023-05-23 15:52 | NUR ---
THIS RN ASKED DR. MANDEL ABOUT PLACING ORDER FOR BIPAP PT REPORTS WEARING BIPAP AT NIGHT. NEW ORDERS RECEIVED, VERIFIED WITH READBACK.
--- NOTE | 2023-05-23 16:14 | NUR ---
IN TO ANSWER CALL LIGHT. PT REQUESTING SOMETHING FOR PAIN. PT REPORTING PAIN 8/10 IN LLQ. OFFERED HOT PACK. PT ACCEPTS. HOT PACK PROVIDED. PT DENIES ANY OTHER NEEDS AT THIS TIME. CALL LIGHT IN REACH.
[2023-05-23] MEDS ORDERED: LEVOFLOXACIN750 MG PO (16:38)
--- NOTE | 2023-05-23 16:56 | NUR ---
IN TO ANSWER CALL LIGHT. PT REPORTING TOILETING NEEDS. SBA FROM BED TO RESTROOM. PT REQESTING PAD. PAD PROVIDED. PT INFORMED TO USE PULL CORD ON WALL WHEN DONE. PT VERBALIZES UNDERSTANDING. NO OTHER NEEDS FROM THIS RN AT THIS TIME.
--- NOTE | 2023-05-23 17:46 | NUR ---
MED REC COMPLETE
[2023-05-23 18:36] VITALS: BP 140/59
--- NOTE | 2023-05-23 19:30 | NUR ---
Patient resting in bed. no complaints, except abd discomfort still there. lights are out, call light within reach. Report given by yeison VELEZ.
--- NOTE | 2023-05-23 20:15 | NUR ---
PATIENT USED THE BATHROOM SBA. PATIENT STATED "I NEED HELP WIPING". THIS ORGAN PIPE MAKER METAL DID SHAQUILLE WIPE. PATIENT IS BACK IN BED. PRIMARY RN WAS WITH PATIENT. WARM PACK MADE PER PATIENT FOR HER ABDOMEN.
[2023-05-23 20:20] VITALS: BP 149/66
--- NOTE | 2023-05-23 20:30 | NUR ---
PT IV ALARMING, NOTED IV SWELLING UNDER DRESSING, "PAINFUL" PER PT. DC'D INTACT.
--- NOTE | 2023-05-23 21:59 | NUR ---
Patient resting in bed. VSS, states she still having pain at 8 in LLQ of abdomin. no nausea. remains NPO, RT set up CPAP for the night. IV infiltrated and d/c'd intact. Blood sugar 108 and no insulin required. call light within reach. RN at bedside attempted new IV site via US.
--- NOTE | 2023-05-23 22:00 | NUR ---
3 ATTEMPTS AT USIV WITHOUT SUCCESS.
--- NOTE | 2023-05-23 22:40 | NUR ---
RN unable to get IV started with US, Another RN attempting at this time.
--- NOTE | 2023-05-24 00:17 | NUR ---
Patient appears comfortable with eyes closed. CPAP on for bedtime. lights are out and call light within reach. continous puse ox >92%.
--- NOTE | 2023-05-24 01:04 | NUR ---
Patient can't sleep. Up ambulating in miguel, tolerating without difficulty. C/O nausea earlier and given nausea medication but also wanting food to eat. Remains NPO.
--- NOTE | 2023-05-24 03:01 | NUR ---
Patient up to BR, VSS, medicated for discomfort per request. blood sugar 143, no insulin needed, resting now, call light within reach.
[2023-05-24 03:04] VITALS: BP 142/68
--- NOTE | 2023-05-24 04:29 | NUR ---
Patient resting with eyes closed, appears comfortable, no noted distress, call light within reach.
[2023-05-24 05:06] VITALS: BP 142/59
--- NOTE | 2023-05-24 05:11 | NUR ---
BACK TO BED FROM BATHROOM; SMALL BM, SOFT; DEPENDENT ON CLEANING AFTERWARDS. INDEPENDENT TO BED, AND GETTING INTO BED. VS AND I/O COMPLETE. AWARE OF TIME OF NEXT PAIN MEDICATION, PRIMARY RN NOTIFIED. STATES SHE DIDN'T SLEEP WELL, AND THAT'S NOT NEW.
--- NOTE | 2023-05-24 05:46 | NUR ---
Patient has slept very little tonight. Had CPAP on for a few hours at beginning of shift. Ambulated miguel x1 during the night, SBA to BR when needed, VSS, Medicated with 1mg diluadid q3h lper patient request, medicated x1 with zofran for nausea. Awake now watching TV, call light in reach.
[2023-05-24 06:00] LABS: BASOPHILS 1.2 % (0-2); EOSINOPHILS 2.3 % (0-6); HEMATOCRIT 42.8 % (35.0-50.0); HEMOGLOBIN 14.3 g/dL (12.0-18.0); LYMPHOCYTES 31.7 % (24-44); MCH 30.5 (27-36); MCHC 33.5 g/dl (30-36); MCV 91.2 fl (81-99); MONOCYTES 6.2 % (0-12); NEUTROPHILS 58.6 % (39-80); PLATELET COUNT 267 K/uL (140-440); RBC 4.69 M/ul (4.3-5.7); RDW 14.5 (10.5-15.0)
[2023-05-24 06:16] LABS: ANION GAP 12.8 (7-21); BUN/CREATININE RATIO 15.46 (6.0-28.6); CREATININE, SERUM 0.97 mg/dL (0.55-1.02); POTASSIUM 3.8 mmol/L (3.5-5.1)
--- NOTE | 2023-05-24 07:35 | NUR ---
REPORT RECEIVED FROM NIGHT RN - PT RESTING IN BED WITH EYES CLOSED, CPAP IN PLACE - SP02 93% ON CPOX. CALL LIGHT IN REACH.
--- NOTE | 2023-05-24 09:00 | NUR ---
ASSESSMENT COMPLETE - PT RESTING IN BED, COMPLAINS OF CONTINUOUS 8/10 LLQ PAIN THAT DOES NOT IMPROVE WITH PRN PAIN MEDICATION. AMBULATING TO BATHROOM WITHOUT ASSISTANCE. IV SITE PATENT AND WNL. REMAINS NPO BUT STATES SHE JUST WANTS TO EAT AND GO HOME.
[2023-05-24 09:38] VITALS: BP 112/64
--- NOTE | 2023-05-24 10:07 | NUR ---
PT RESTING IN BED WITH EYES CLOSED, RR EVEN AND UNLABORED WITHOUT CPAP ON AT THIS TIME. CALL LIGHT IN REACH.
--- NOTE | 2023-05-24 10:25 | NUR ---
PATIENT RESTING IN BED WITH EYES CLOSED, RESPIRATATIONS EVEN AND UNLABORED. ALLOWED TO REST AT THIS TIME. CALL LIGHT IN REACH. BED RAILS UP X2. WILL REATTEMPT ASSESSMENT LATER THIS AM.
--- NOTE | 2023-05-24 10:52 | NUR ---
MS ROUNDS. SHORT VISIT. PT STATED VERY TIRED; NO NEEDS. PROVIDED SILENT PRAYER.
--- NOTE | 2023-05-24 11:19 | NUR ---
RN ROUNDING ON PT - RESTING IN BED. REQUESTS SPRITE, DIET NOW CLEARS. PROVIDED SPRITE. PT ALSO REQUESTS PAIN MEDICATION FOR 8/10 PAIN IN LLQ. PT UP TO VOID INDEPENDENT IN ROOM WITH CARETAKERS ASSISTANCE.
--- NOTE | 2023-05-24 11:55 | NUR ---
PATIENT ALERT AND ORIENTED IN ROOM. CAREGIVER PRESENT WELL. PATIENT LIVES ALONE. RAMP TO GET INTO HOME. DEMOGRAPHICS CONFIRMED WITH PATIENT. STATES SHE HAS CAREGIVERS 32 HOURS A WEEK. HAS A CPAP MACHINE, RAMP, CANE, SHOWER CHAIR. DOES NOT DRIVE. USES [employer], MOTHER AND CAREGIVERS ASSIST WITH TRANSPORTATION WHEN NEEDED. PATIENT RECEIVES FOOD STAMPS AND ALSO UTILIZES THE [employer] FOR FOOD. DENIES NEEDS AT THIS TIME. INSTRUCTED TO NOTIFY STAFF IF NEEDS ARISE. VERBALIZES UNDERSTANDING.
--- NOTE | 2023-05-24 12:36 | NUR ---
MD ROUNDING ON PT - DIET ADVANCED TO REGULAR, WILL ADDRESS PAIN AND SYMPTOMS AFTER LUNCH. TENTATIVE PLAN FOR DC TODAY.
--- NOTE | 2023-05-24 13:24 | NUR ---
PT DENIES PAIN OR INCREASE IN SYMPTOMS AFTER EATING 100% CLEAR LIQ TRAY AND MILK AND COTTAGE CHEESE.
[2023-05-24 14:14] VITALS: BP 147/83
[2023-05-24 14:24] LABS: BASOPHILS 1.1 % (0-2); EOSINOPHILS 1.9 % (0-6); HEMOGLOBIN 14.7 g/dL (12.0-18.0); LYMPHOCYTES 26.4 % (24-44); MCH 30.9 (27-36); MCHC 34.2 g/dl (30-36); MCV 90.4 fl (81-99); MONOCYTES 4.6 % (0-12); RBC 4.76 M/ul (4.3-5.7); RDW 14.5 (10.5-15.0)
[2023-05-24 14:35] LABS: ANION GAP 14.4 (7-21); BUN/CREATININE RATIO 15.95 (6.0-28.6); CALCIUM 8.6 mg/dL (8.5-10.1); CREATININE, SERUM 0.94 mg/dL (0.55-1.02); POTASSIUM 4.4 mmol/L (3.5-5.1)
--- NOTE | 2023-05-24 15:36 | NUR ---
PRN PAIN MEDICATION ADMINISTERED PER PT REQUEST FOR 12/11 PAIN LLQ. PT RESTING IN BED WATCHING TV. NO DISTRESS NOTED. PT REQUESTING SPECIFIC DINNER OPTIONS. EDUCATION OF 60G CARB DIET PROVIDED.
--- NOTE | 2023-05-24 17:55 | NUR ---
PT REQUESTING DIFFERENT DINNER THAN SERVED. REINFORCED EDUCATION ON 60G CARB DIET. PT PROVIDED SANDWHICH BOX. PT STILL DENIES INCREASE PAIN OR SYMPTOMS AFTER EATING. BM TODAY, NORMAL WITHOUT CONCERN.
[2023-05-24 17:57] VITALS: BP 130/54
--- NOTE | 2023-05-24 19:40 | NUR ---
Patient resting in bed, no complaints, watching TV, Report provided by dayshift RN, patient call light within reach.
[2023-05-24 20:31] VITALS: BP 136/68
--- NOTE | 2023-05-24 20:37 | NUR ---
Patient watchiing TV, no complaints, states she gets to go home tomorrow and looking forward to daughter coming tonight, VSS, Tolerating oral intake, denies nausea at this time. Blood sugar 143 and 1 unit insulin given per SS, RT in to set up CPAP for when patient is ready for bed. Call light within reach.
--- NOTE | 2023-05-24 21:44 | NUR ---
pATIENT REMAINS AWAKE, EXCITED FOR DAUGHTER TO GET HER. rEQUESTED AND GIVEN PAIN MEDICATION. WATCHING TV, CALL LIGHT IN REACH
--- NOTE | 2023-05-24 22:47 | NUR ---
PT. I/OS DOCUMENTED. PT. ASSISTED TO BATHROOM. FRESH ICE WATER PROVIDED. SALTINES PROVIDED. CALL LIGHT LEFT WITHIN REACH. NO OTHER NEEDS AT THIS TIME.
--- NOTE | 2023-05-24 23:52 | NUR ---
Patient awake watching TV. Visited with daughter who has now left and will be back in am. Given a snack of cheese per request. No other needs at this time. lights are out and call light within reach.
--- NOTE | 2023-05-25 01:59 | NUR ---
Patient resting with eyes closed and CPAP on. appears comfortable, no noted distress, call light within reach.
--- NOTE | 2023-05-25 03:39 | NUR ---
Patient called and requested and given pain medication. Continues to wear CPAP and tolerating well, trying to go back to sleep. call light within reach.
--- NOTE | 2023-05-25 08:14 | NUR ---
UR NOTE [facility] DIVERTICULITIS, ACUTE: OBSERVATION CARE (ISC) 05/23/23 MET OBSERVATION CARE ADMISSION CRITERIA
[2023-05-25 08:25] LABS: BASOPHILS 0.8 % (0-2); EOSINOPHILS 2.7 % (0-6); HEMATOCRIT 41.8 % (35.0-50.0); HEMOGLOBIN 14.2 g/dL (12.0-18.0); LYMPHOCYTES 25.9 % (24-44); MCH 30.8 (27-36); MCV 90.6 fl (81-99); MONOCYTES 5.8 % (0-12); NEUTROPHILS 64.8 % (39-80); PLATELET COUNT 248 K/uL (140-440); RBC 4.61 M/ul (4.3-5.7); RDW 14.7 (10.5-15.0)
== END 2023-05-25 10:50 | disposition home or self-care (01) ==
LOC: ED 09:10 → MS 09:12 → ED 13:09 → MS 13:09
PROVIDERS: Emergency Medicine; ADMIT Internal Medicine; ATTEND Internal Medicine
DX: K57.30 Diverticulosis of large intestine without perforation or abscess without bleeding (principal); E66.9 Obesity, unspecified; Z68.42 Body mass index [BMI] 45.0-49.9, adult; F17.200 Nicotine dependence, unspecified, uncomplicated; Z88.5 Allergy status to narcotic agent; Z88.0 Allergy status to penicillin
CPT/HCPCS: 36415; 74177; 80048; 80053; 81001; 83690; 85025; 85060; 94660; 94762; 96366; 96375; 96376; 99285-25; A9270; C9113; G0378; J1170; J1815; J1956; J2405; J7030; Q9967

== ENCOUNTER 2023-05-26 19:33 | Inpatient (IN) | payer OTHER ==
[~2023-05-26] VITALS: Ht 162.6 cm; Wt 120.0 kg
--- OUTSIDE RECORDS SUMMARY | 2023-05-26 19:42 | XMS ---
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 Security Manager Acquisition Events 1 event(s) in the past 18 months Most recent security events: Elopement at [facility] 07/31/2022 14:18 - Patient eloped with IV in place. - Patient eloped before treatment completed. - Patient with suicidal and/or homicidal ideations eloped. Details: Patient LWBS
[2023-05-26 19:58] LABS: EOSINOPHILS 1.1 % (0-6); HEMATOCRIT 48.4 % (35.0-50.0); HEMOGLOBIN 16.5 g/dL (12.0-18.0); LYMPHOCYTES 32.6 % (24-44); MCH 30.7 (27-36); MCV 90.1 fl (81-99); MONOCYTES 5.1 % (0-12); NEUTROPHILS 60.2 % (39-80); PLATELET COUNT 381 K/uL (140-440); RBC 5.37 M/ul (4.3-5.7); RDW 14.4 (10.5-15.0)
[2023-05-26 20:15] LABS: ALBUMIN 3.9 g/dL (3.4-5.0); ALBUMIN/GLOBULIN RATIO 1.03 (1.1-2.4); ANION GAP 18.6 (7-21); BILIRUBIN, TOTAL 0.2 ng/dL (0.2-1.0); BUN/CREATININE RATIO 11.5 (6.0-28.6); CALCIUM 9.5 mg/dL (8.5-10.1); CREATININE, SERUM 1.13 mg/dL (0.55-1.02); POTASSIUM 3.6 mmol/L (3.5-5.1); PROTEIN, TOTAL 7.7 g/dL (6.4-8.2)
[2023-05-26 21:41] LABS: BILIRUBIN, URINE NEGATIVE (negative); BLOOD/HGB, URINE NEGATIVE (Negative); KETONE, URINE NEGATIVE (Negative); LEUK ESTERASE, URINE NEGATIVE (negative); NITRITE, URINE NEGATIVE (negative)
[2023-05-26 21:44] LABS: EPITHELIAL CELLS, URINE SQUAMOUS 1+ /lpf (0-1+); WHITE BLOOD CELLS, URINE 0-1 /HPF (0-5)
[2023-05-26 21:47] LABS: REFLEX CULTURE, URINE No (No)
--- NOTE | 2023-05-26 23:10 | NUR ---
PATIENT ARRIVED AT THIS TIME TRANSPORTED BY DOMO VELEZ E.D., SHE IS ALERT AND ORIENTED, SHE REPORTS CONTINUED PAIN. ASSESSMENT AND INTAKE TO BE COMPLETED. IV ABX STARTED.
[2023-05-26 23:32] VITALS: BP 124/83
[2023-05-27] VITALS (9 sets, daily range): BP systolic 116–136; BP diastolic 60–88
--- NOTE | 2023-05-27 00:54 | NUR ---
PATIENT HAS NOW RECEIVED HER SECOND DOSE OF MORPHINE 6MG IV SINCE ADMIT, PATIENT CONTINUES TO REPORT PAIN 8/10, NO NAUSEA. SHE IS COOPERATIVE WITH CARES. BIPAP SET UP IN ROOM BY Sadi HAS PATIENT DID NOT BRING IN HERS FROM HOME, SHE SAID HER DAUGHTER COULD BRING IN TOMORROW. SHE HAS BEEN PROVIDED PERSONAL FAN FOR BEDSIDE FOR COMFORT AND ICE CHIPS REQUESTED FROM PATIENT AND PER CLEAR LIQUID ORDER. PATIENT PAIN IS REPORTED AT LEFT LOWER QUADRANT.
--- NOTE | 2023-05-27 00:59 | NUR ---
HAVE BEEN ATTEMPTING TO START SECOND IV FOR PATIENT SINCE ADMISSION HER IVF LR AND MERREM ARE NOT COMPATIBLE PER OUR PHARMACY PROTOCOL. THIS RN ATTEMPTED TWICE, SECOND CCU RN BILL VELEZ TRIED TWICE, RAY VELEZCLIENT CARE REPRESENTATIVE ATTEMTED, WITHOUT SUCCESS. WILL CONTINUE ABX, THEN CHANGE BACK TO IVF. PLAN TO HAVE ULTRASOUND IV SITE PLACED IN AM. PATIENT TOLERATED WELL.
--- NOTE | 2023-05-27 02:57 | NUR ---
PATIENT HAS BEEN ASKING FOR PAIN MEDICATION EVERY HOUR REPORTINR 01/11 PAIN AT [facility]. SHE HAS BEEN PROVIDED A WARM PACK WELL AT THIS TIME. V/S STABLE, CALL LIGHT IN REACH, SHE VERBALIZED NO FURTHER NEEDS AT THIS TIME.
--- NOTE | 2023-05-27 04:15 | NUR ---
PATIENT RESTING IN BED, RELAXED POSITION, NO DISTRESS NOTED, PATIENT ASKED ABOUT INCREASE IN DIET, EXPLAINED THAT WILL SEE YOU TODAY, IF IT IS DECIDED THAT YOU WILL HAVE SURGERY YOUR DIET WILL NOT LIKELY BE ADVANCE.
--- NOTE | 2023-05-27 05:15 | NUR ---
PATIENT UP TO BATHROOM TO VOID, VOIDED 300ML OF CLEAR TEA COLORED URINE. SHE TOLERATED ACTIVITY WELL WITH STANDBY ASSIST. SHE DID NOT VERBALIZE PAIN WHILE THIS RN IN PATIENT ROOM.
--- NOTE | 2023-05-27 06:22 | NUR ---
CALLED TO UPDATE ON PATIENT PAIN AND PRN MEDICATIONS ADMINISTERED FOR PAIN. ALSO PATIENT HAS TEA COLORED URINE. NEW ORDERS GIVEN FOR ADDITIONAL BOLUS AND CHANGE IN PAIN REGIMEN, DISCUSSED TORDOL HOWEVER SHE DOES HAVE ALLERGY LISTED FOR THIS.
[2023-05-27 06:30] LABS: BASOPHILS 0.9 % (0-2); EOSINOPHILS 2.2 % (0-6); HEMOGLOBIN 14.3 g/dL (12.0-18.0); LYMPHOCYTES 41.2 % (24-44); MCH 30.9 (27-36); MCHC 34.1 g/dl (30-36); MCV 90.6 fl (81-99); MONOCYTES 6.3 % (0-12); NEUTROPHILS 49.4 % (39-80); PLATELET COUNT 290 K/uL (140-440); RBC 4.63 M/ul (4.3-5.7); RDW 14.4 (10.5-15.0)
[2023-05-27 06:49] LABS: ALBUMIN 3.3 g/dL (3.4-5.0); ALBUMIN/GLOBULIN RATIO 1.06 (1.1-2.4); ANION GAP 12.9 (7-21); BILIRUBIN, TOTAL 0.3 ng/dL (0.2-1.0); BUN/CREATININE RATIO 11.81 (6.0-28.6); CALCIUM 8.8 mg/dL (8.5-10.1); CREATININE, SERUM 1.1 mg/dL (0.55-1.02); POTASSIUM 3.9 mmol/L (3.5-5.1); PROTEIN, TOTAL 6.4 g/dL (6.4-8.2)
--- NOTE | 2023-05-27 06:53 | NUR ---
PATIENT REPORTS PAIN 01/11, 1MG IV DILAUDID PRN ADMINISTERED PER NEW ORDERS FROM THIS AM, BOLUS INFUSING. PATIENT REQUESTED SPRIT, DIET TWIST UP PROVIDED, ALSO SHE REQUESTED CHICKEN BROTH PROVIDED, PER CLEAR LIQUID DIET. NO OTHER REQUESTS AT THIS TIME.
--- NOTE | 2023-05-27 07:58 | NUR ---
PT RESTING IN BED TALKING ON CELL PHONE, NO DISTRESS NOTED. PT ABLE TO REPOSISTION SELF IN BED TO SIT UP STRAIGHT WITHOUT ANY SIGN OF PAIN. CLEAR LIQUID BREAKFAST TRAY PROVIDED. IV SITE PATENT AND ABX INFUSING WITHOUT DIFFICULTY. OFRIMEV COMPLETE. CALL LIGHT IN REACH.
--- NOTE | 2023-05-27 08:45 | NUR ---
RN ROUNDING WITH MD - TREATMENT OPTIONS DISCUSSED WITH PT AND FAMILY - PLAN TO OPERATE TODAY, PT STATES UNDERSTANDING OF PROCEDURES AND ALL QUESTIONS ANSWERED. ASSESSMENT COMPLETE. PT PREPPED FOR SURGERY PER PROCEDURES.
--- NOTE | 2023-05-27 09:55 | NUR ---
PT OFF FLOOR TO OR.
--- NOTE | 2023-05-27 12:05 | NUR ---
05/27/23 1205 Yeimi Yeh 1151- PT ARRIVES TO PACU REACTIVE TO VOICE. PT DOES NOT ANSWER QUESTIONS. TAKES DEEP BREATHS WHEN STIMULATED BY STAFF TO DO SO. RESP RAPID AND SHALLOW. OXYGEN SAT HIGH 90'S TO 100% ON 15L VIA NONREBREATHER. CATHETER IN PLACE. DRAINING CLEAR YELLOW URINE. 1154- PT OBSTRUCTING. PT NEEDING FREQUENT REMINDERS TO TAKE BREATHS. JENNY ORDONEZ CRNA PLACES NPA IN PT'S MOUTH. THIS IS HELPING TO MAINTAIN PATENT AIRWAY. 1156- CBG TAKEN RUDI STEVENS RN. CBG 161. LOCK INSTALLER AWARE. 1158- MEL DRAINED FOR 25 ML OF SEROSANGEOUS DRAINAGE. 1202- NEW GOWN PLACED ON PT. PT REMAINS REACTIVE TO VOICE. IS NOT ABLE TO STAY AWAKE WITHOUT STIMULATION. NPA LEFT IN PLACE. RESP EVEN. OXYGEN SAT 100% ON 15L VIA NONREBREATHER.
--- NOTE | 2023-05-27 12:20 | NUR ---
PATIENT D/C AT 1154 VIA WHEELCHAIR WITH S/O WAI. PT TO FOLLOW UP WITH DR. ERAZO 06/07/22, AND TO ALSO FOLLOW UP WITH DR. SUMMERS. PT HAS AN ORDER FORM TO GET HER BLOOD DRAWN 05/29/23 TO FOLLOW UP ON POTASSIUM LEVEL. PT GIVEN EDUCATION ON BLOOD SUGAR CHECKS AT HOME, BEING COMPLIANT WITH HER INSULIN, AND WHEN TO CALL HER DOCTOR.
--- NOTE | 2023-05-27 13:03 | NUR ---
Pt arrived to room at this time, on hospital bed, transferred by ROSIE Singh from PACU. Pt report received from Samantha. Pt is drowsy, easily awakened. Pt has a dry, weak cough, is using a pillow to guard. Pt abdomen is tender to palpation, steri strips to 2 of 4 lap sites with SS drainage, gauze and gauze tape to umbilical lap site with large SS shadowing (Samantha reports the site had been leaking fluid and was reinforced). MEL drain site CDI, MEL with SS fluid. Pt wakes for brief periods of time but falls back to sleep quickly. VSS, family at bedside. SCDs on, call light in reach, side rails up x4. Pt provided with iced water and has been sipping it. No c/o nausea. She is currently on O2 at 2lpm.
--- NOTE | 2023-05-27 14:23 | NUR ---
Medications reconciled
--- NOTE | 2023-05-27 15:15 | NUR ---
patient will be taking her own lurasidone 80mg (Latuda). Medication brought in by patient in a commercial Tylenol PM bottle. Identified by pharmacist and labeled with correct medication and bar code
--- NOTE | 2023-05-27 18:11 | NUR ---
In with pt for VS. Pt reports her drain "is leaking all over my gown". Noted shadowing to gauze dressing at drain site as well as increased shadowing of umbilical lap site. Sites were reinforced with gauze and medipore. Pt reports increasing pain (she was given PO Percocet 2 tabs of 7.5mg, as well as 600mg motrin, and has an ice pack to her abdomen). Call light in reach. Pt's daughter in room.
--- NOTE | 2023-05-27 18:28 | NUR ---
Pt arrived to room 114 at about 1300 hours. She was still drowsy after surgery but was easy to wake. Her family has been bedside for this entire shift, leaving only to get food for themselves. Pt has c/o pain consistently 8.5-9 out of 10 even after oral percocet and motrin administered. She has dilaudid colorer machine ordered and pharmacy set this up just prior to leaving for the day. They prepared multiple syringes of dilaudid for PATIENT SERVICE COORDINATOR for use during pediatric oncologist. During surgery, 3 liters of fluid was used for abdominal lavage and Dr. Solano expected lots of drainage with the Pieter drain; however, I have only obtained 20cc since she arrived. I will empty the drain one more time before shift change, but it appears there may only be another 20cc. There is fluid leaking from the drain site as well as the umbilical lap site and these dressing were reinforced with gauze and medipore. Pt is tolerating iced water and chicken broth well with no nausea. Padilla is draining clear yellow urine. Pt uses call light appropriately. Her home bipap is in her room and she understands to use it when she is sleeping as her O2 sats drop to around 87% at times. She is currently on 2LPM O2 via NC to maintain sats above 90%. She was instructed on how to use the incentive spirometer. Bowel tones are hypoactive.
--- NOTE | 2023-05-27 19:51 | NUR ---
MEDICATED WITH TYLENOL 500MG PO C/O 02/11 LEFT ABD SIDE PAIN. C/O PO MEDS NOT EFFECTIVE, WANT SOMETHING STRONGER, WILL NOTIFY PRIMARY RN
--- NOTE | 2023-05-27 21:00 | NUR ---
PATIENT RATING PAIN 9/10 ON PAIN SCALE, ADMINISTERED PAIN MEDICATION PER MAR. SPOKE WITH DR. MICHAEL VIA PHONE, VERBALIZED TO CONTINUE TO TRY NOT TO USE THERMAL CUTTING MACHINE OPERATOR IF POSSIBLE AND PROVIDE TYELNOL AND PECOCET PO FOR PAIN PER MAR. FULL BODY ASSESMENT COMPLETED, NO CHANGE WITH ABDOMEN, BLOODY DRAIANGE NOTED IN CHARMAINE DRAIN. BOWEL TONES ACTIVE. FELDER DRAINING CLEAR YELLOW URINE. CALL LIGHT WITHIN REACH, DAUGHTER AT BEDSIDE STAYING THE NIGHT. CPAP SET UP, CONTINIOUS PULSE OX ON, 02 SAT 94% RA
--- NOTE | 2023-05-27 22:48 | NUR ---
INTO ROOM PER DAUGHTER'S REQUEST, VERBALIZED THAT PATIENT WANTED TO TALK TO NURSE ABOUT PAIN MEDICATIONS. INTO ROOM, PATIENT RESTING WITH EYES CLOSED, CPAP ON. 0 ON FACE PAIN SCALE. VERBALIZED TO DAUGHTER TO PUSH CALL LIGHT IF PATIENT AWAKES AND WANTS NURSE.
--- NOTE | 2023-05-27 22:50 | NUR ---
PATIENT AWOKE AND REQUESTED NURSE TO CALL DOCTOR FOR MORE PAIN MEDICAITON, DISCUSSED WITH PATIENT PAIN REGIME. PATIENT STATED " I TAKE ALOT MORE THAN THIS AT HOME AND I NEED SOMETHING STRONGER, CCU WAS GIVING ME MORE, WHY CAN'T THEY DO THAT OVER HERE". PATIENT PUT C-PAP BACK ON AND CLOSED EYES. APPEARS CALM, AND RESTING WITH EYES CLOSED.
[2023-05-28 01:46] VITALS: BP 125/63
--- NOTE | 2023-05-28 02:24 | NUR ---
ABDOMINAL ASSESSMENT COMPLETED. GAUZE TO UBILICUS AND DRAINAGE TUBE C/D/I. ABDOMEN TENDER, MILKED TUBING TO MEL, PATIENT DID NOT TOLERATED WELL. 20ML OF BENJAMIN RED BLOOD EMPTIED FROM CHARMAINE DRAIN. BOWEL TONES ACTIVE. LUNG SOUND DIMINISHED IN BASES. VS WNL. EMPTIED 1200 ML OF CLEAR URINE FROM FELDER CATHETER. IV FLUIDS INFUSING 85ML/HR. PATIENT WANTING NURSE TO CALL DOCTOR FOR INCREASED AND STRONGER PAIN MEDICAITON. REASSURED PATIENT AND DISCUSSED POST OP PAIN. ENCOURAGED PATIENT TO GET UP AND AMUBULATE IN THE HALLS, THEN IF STILL HAVING UNTOLERABLE PAIN WOULD CONSIDER CALLING THE DOCTOR. PATIENT REFUSED TO GET OUT OF BED AT THIS TIME, BUT AGREED TO GET UP IN THE MORNING HOURS. STATED " I REALLY JUST WANT TO GET MY PERCOCET AND THEN GET A FEW MORE HOURS OF SLEEP" ADMINISTERED PERCOCET PER AUG. PATIENT BIPAP APPEARS TO POORLY FIT FACE, CPOX CONTINUES TO DING. RT TO ROOM BLEED 6L INTO BIPAP. O2 SATURATION APPEARS TO DROP TO 88% THEN INCREASES TO 94% WITH UNITERUPTED BREATHING. CALL LIGHT WITHIN REACH, NO OTHER NEEDS AT THIS TIME. PATIENT AGREED TO WALK IN HALLS AT 0600.
--- NOTE | 2023-05-28 03:11 | NUR ---
PATIENT APPEARS TO DROP TO 70% ON CPAP, RT TO ROOM. PLACED PATIENT ON 3L NC, PATIENT REMOVED CPAP AND VERBALIZED WANTING A BREAK. OXYGEN SATURATION CPOX 88-95% WITH 3L NC.
--- NOTE | 2023-05-28 04:04 | NUR ---
warm pad given on request
[2023-05-28 05:35] LABS: HEMOGLOBIN 13.9 g/dL (12.0-18.0)
[2023-05-28 05:38] LABS: BASOPHILS 0.5 % (0-2); EOSINOPHILS 0.5 % (0-6); HEMATOCRIT 40.8 % (35.0-50.0); LYMPHOCYTES 15.4 % (24-44); MCH 30.7 (27-36); MCHC 34.1 g/dl (30-36); MCV 90.1 fl (81-99); MONOCYTES 4.8 % (0-12); NEUTROPHILS 78.8 % (39-80); PLATELET COUNT 246 K/uL (140-440); RBC 4.53 M/ul (4.3-5.7); RDW 14.3 (10.5-15.0)
[2023-05-28 05:50] LABS: ALBUMIN 3.3 g/dL (3.4-5.0); ALBUMIN/GLOBULIN RATIO 1.14 (1.1-2.4); ANION GAP 14.9 (7-21); BILIRUBIN, TOTAL 0.2 ng/dL (0.2-1.0); BUN/CREATININE RATIO 13.33 (6.0-28.6); CALCIUM 8.5 mg/dL (8.5-10.1); CREATININE, SERUM 0.9 mg/dL (0.55-1.02); POTASSIUM 4.9 mmol/L (3.5-5.1); PROTEIN, TOTAL 6.2 g/dL (6.4-8.2)
--- NOTE | 2023-05-28 06:10 | EKG ---
[facility] [address] [facility] [place] [address] Signed Normal sinus rhythm Normal ECG When compared with ECG of 28-FEB-2023 10:38, No significant change was found Confirmed by EDSON MICHAEL MD ([id number]) on 05/28/2023 6:10:03 AM Electronically Signed By: EDSON MICHAEL 05/28/23 0610 PATIENT NAME: LEA GARCIA GRACE Electrocardiogram DATE OF : 70 PHYSICIAN: EDSON MICHAEL REPORT #: [id number] REPORT IS CONFIDENTIAL AND NOT TO BE RELEASED WITHOUT AUTHORIZATION
[2023-05-28 06:25] VITALS: BP 131/57
--- NOTE | 2023-05-28 07:15 | NUR ---
Pt report received from ROSIE Suarez
--- NOTE | 2023-05-28 08:13 | NUR ---
PATIENT DID NOT SLEEP WELL WITH POOR FITTING MASK WITH BIPAP, RT INTO ROOM SEVERAL TIMES THROUGHOUT NIGHT TO ADJUST OXYGEN FLOW AND ASSESS FIT OF MASK. 0300 PATIENT DECIDED TO REMOVE BIPAP MASK AND TRANSITION TO 5L NC, CPOX 85% TO 95%. 0600 PATIENT SAT AT EDGE OF BED, LUNG SOUNDS CLEAR THOUGHOUT. PROVIDED EDUCATION ON COUGH AND DEEP BREATHE. PATIENT THEN TOOK 4 SIDE STEPS UP THE HEAD OF THE BED AND THEN SAT BACK TO LAY IN BED. PATIENT TOLERATED THE ACTIVIEY WELL. TALKED WITH DR. MICHAEL THIS MORNING IN REGARDS TO ORDER FOR SEALING MACHINE OPERATOR AND CONCERNS OF RESPIRATORY DEPRESSION, SECONDARY TO ASSESSMENT FINDINGS THROUGHOUT THE NIGHT WITH OBSTRUCTIVE SLEEP APNEA AND THE EFFECTS PO PAIN MEDICATION PER AUG. DR. MICHAEL VERBALIZED HE WOULD DC THE SEALING MACHINE OPERATOR ORDER AND CONTINUE WITH THE PO PERCOCET PER AUG FOR PAIN REGIME. PATIENT VOIDING WELL, GOOD URINE OUTPUT.
--- NOTE | 2023-05-28 09:01 | NUR ---
IN WITH PT FOR ASSESSMENT. PT IS ASLEEP, EYES CLOSED, BREATHING REGULAR, EVEN, AND SHE IS SNORING WITH HER MOUTH AGAPE. DMITRIY NOTED. PT O2 SATURATIONS ARE 95-96% ON ROOM AIR UNTIL SHE EXPERIENCES PERIODS OF DMITRIY WHEN SHE DESATS, BRIEFLY, TO LOW 84% ON ROOM AIR. THIS RN MONITORED PT'S SATURATIONS SHE SLEPT, ON ROOM AIR, FOR APPROXIMATELY 15 MINUTES. SHE HAD SEVERAL BRIEF PERIODS OF APNEA AND HER SATS QUICKLY MIQUEL TO ABOVE 90% ON ROOM AIR SOON SHE TOOK A BREATH. PT O2 PRIOR TO MY ASSESSMENT WAS SET ON 5LPM. I HAVE DECREASED IT TO 2LPM AND WILL CONTINUE TO MONITOR. WHEN PT WAS AWAKENED TO RECEIVE A.M. MEDICATIONS, HER FIRST WORDS WERE, "HAVE THEY SAID ANYTHING ABOUT MORE PAIN MEDS?". I EXPLAINED TO THE PT THAT HER PAIN SEEMS TO BE WELL UNDER CONTROL WITH HER Q6 PERCOCET (2 TABS), MOTRIN, AND ICE PACKS, AND THAT SHE NEEDS TO GET UP AND AMBULATE. PT STATES "I HAVE", THEN ALMOST IMMEDIATELY FELL BACK TO SLEEP, SNORING. SHE IS EASILY AWAKENED AND QUICKLY RETURNS TO A SLEEPING STATE. TELEVISION IS ON, BEDSIDE TABLE AND PERSONAL BELONGINGS WITHIN REACH, CALL LIGHT IN REACH.
[2023-05-28 09:56] VITALS: BP 133/74
--- NOTE | 2023-05-28 12:30 | NUR ---
PT CONTINUES TO USE CALL LIGHT TO REQUEST UPDATE ON WHETHER THE MD HAS INCREASED HER PAIN MEDS OR CHANGED HER DIET. ADVISED PT THAT SHE NEEDS TO GET OUT OF BED AND AMBULATE IN ORDER TO FACILITATE THE HEALING PROCESS. PT ADVISES THAT SHE WILL TAKE A WALK RIGHT NOW. LINE AND TUBE MGMNT BY THIS RN. PT IS S/L AT THIS TIME. FELDER IS DRAINING CLEAR YELLOW URINE. PT HAS NOT HAD ANY PART OF HER BREAKFAST OR LUNCH TRAY. DR. MOCK CAME IN FOR ASSESSMENT SHORTLY AFTER THE PT RETURNED FROM AMBULATING APPROXIMATELY [address] FE[address] IN [address] HALLWAY. HE ADVISED THAT HER DIET CAN BE CHANGED TO 60G CONSISTENT CARB WITH A SECONDARY OF LOW FIBER, AND THAT HE WILL PRESCRIBE MORE ORAL PAIN MEDS TO HAVE AVAILABLE TO THE PATIENT NEEDED. APPROXIMATELY [address] MOCK LEFT THE ROOM, THE PT WAS ALREADY ASKING TO TAKE MORE PAIN MEDS. SHE WAS PROVIDED WITH SCHEDULED RITALIN AND 600MG MOTRIN PER EMAR AT THIS TIME. PT IS CURRENTLY ([id number]) SITTING IN HER BED, MOTHER IN ROOM, LAUGHING AND TALKING TO SOMEONE ON THE PHONE.
[2023-05-28 13:52] VITALS: BP 132/61
[2023-05-28 17:41] VITALS: BP 126/67
--- NOTE | 2023-05-28 18:22 | NUR ---
PT HAS BEEN ASKING FOR PAIN MEDS OFTEN TODAY AND MONITORS THE CLOCK FOR HER NEXT DOSES. SHE HAS ONLY AMBULATED X1 THIS SHIFT DESPITE ENCOURAGEMENT FROM THIS RN AND DR. MOCK ON THE IMPORTANCE OF AMBULATION. SHE WAS ENCOURAGED TO USE THE INCENTIVE SPIROMETER. HER IV FLUIDS WERE DC'D AND THE FELDER HAS BEEN DRAINING 300ML CLEAR YELLOW URINE EVERY 4 HOURS OR SO. SHE IS, AND HAS BEEN, ON ROOM AIR SINCE LATE THIS AFTERNOON, HER O2 SATS HAVE MAINTAINED ABOVE 90%.
--- NOTE | 2023-05-28 19:47 | NUR ---
REPORT RECEIVED FROM DAY SHIFT RN. PT LYING IN BED RESTING WITH EYES CLOSED. RESPIRATIONS EVEN. CPAP IN PLACE. SpO2 LOW 90'S. WHITE BOARD UPDATED. CALL LIGHT IN REACH.
[2023-05-28 20:30] VITALS: BP 134/66
--- NOTE | 2023-05-28 21:03 | NUR ---
PT BACK TO BED AFTER A WALK FROM HER ROOM TO THE NURSES STATION [place]. NARCISA. WELL, DID HAVE A COUPLE SHORT BREAKS; PRIOR TO WALK, VS AND I/O COMPLETE, FRESH ICE WATER, REQUESTED AND RECEIVED MILK. CURRENTLY PRIMARY RN IN ROOM WITH HS MEDICATIONS.
--- NOTE | 2023-05-28 21:21 | NUR ---
EVENING ASSESSMENT COMPLETE. SCHEDULED MEDS ADMIN PER EMAR. PT REPORTS LEFT SIDE ABD PAIN 01/11. PRN FOR PAIN ADMIN PER EMAR. PT DENIES NAUSEA. BOWEL TONES ACTIVE. ABD SOFT. LAP SITE DRESSINGS CDI. MEL LLQ WITH SMALL AMOUNT SEROSANG DRAINAGE. PT REPORTS FLATUS. PT REFUSES SCD'S AT THIS TIME, EDUCATION PROVIDED. SANDWICH PROVIDED PER REQUEST. PT DENIES QUESTIONS OR CONCERNS. CALL LIGHT IN REACH.
--- NOTE | 2023-05-28 23:14 | NUR ---
CALL LIGHT ANSWERED. CPOX SENSOR REPLACED PER PT REQUEST. ICE WATER PROVIDED. NO FURTHER NEEDS.
--- NOTE | 2023-05-29 01:38 | NUR ---
PT RESTING IN BED WITH EYES CLOSED. RESPIRATIONS EVEN. CPAP IN PLACE. SpO2 MID 90'S.
--- NOTE | 2023-05-29 02:56 | NUR ---
CALL LIGHT ANSWERED. PT REPORTS ABD PAIN 01/11. PRN FOR PAIN ADMIN PER EMAR. PT DENIES NAUSEA. ABD ASSESSMENT UNCHANAGED. NO FURTHER NEEDS.
[2023-05-29 05:03] VITALS: BP 118/52
[2023-05-29 05:51] LABS: BASOPHILS 2.1 % (0-2); EOSINOPHILS 1.2 % (0-6); HEMATOCRIT 41.1 % (35.0-50.0); HEMOGLOBIN 13.7 g/dL (12.0-18.0); LYMPHOCYTES 42.4 % (24-44); MCH 30.4 (27-36); MCHC 33.2 g/dl (30-36); MCV 91.4 fl (81-99); MONOCYTES 6.1 % (0-12); NEUTROPHILS 48.2 % (39-80); PLATELET COUNT 275 K/uL (140-440); RDW 14.4 (10.5-15.0)
[2023-05-29 06:06] LABS: ALBUMIN 3.2 g/dL (3.4-5.0); ALBUMIN/GLOBULIN RATIO 1.14 (1.1-2.4); ANION GAP 10.8 (7-21); BILIRUBIN, TOTAL 0.2 ng/dL (0.2-1.0); BUN/CREATININE RATIO 20.37 (6.0-28.6); CALCIUM 8.7 mg/dL (8.5-10.1); CREATININE, SERUM 1.08 mg/dL (0.55-1.02); POTASSIUM 3.8 mmol/L (3.5-5.1)
--- NOTE | 2023-05-29 06:17 | NUR ---
VS AND I&O OBTAINED. LLQ MEL WITH 30 ML SEROSANG DRAINAGE. FELDER PATENT WITH QS YELLOW URINE. PT DENIES NAUSEA. NO C/O PAIN AT THIS TIME. SNACK PROVIDED PER REQUEST. IV ABX INFUSING PER ORDER. NO FURTHER NEEDS.
--- NOTE | 2023-05-29 07:13 | NUR ---
Report received from Lyndsay VELEZ. Patient resting in bed with CPAP in place, resp even and unlabored. No needs identified at this time, will continue plan of care.
--- NOTE | 2023-05-29 08:15 | NUR ---
Scheduled medications administered and assessment complete. Patient resting in bed while eating breakfast, watching tv. Patient is A+O, LSC, HRR, bowel tones active. Reports passing gas, no BM yet. States no n/v. Reports pain at 8/10, made plan for percocet when available. Patient eats 100% of meal. Incision C/D/I, MEL drain site WNL, small amount serousanguinous drainage noted within drain. Padilla cath draining clear yellow urine. Patient has no further needs at this time.
--- NOTE | 2023-05-29 08:48 | NUR ---
Pt IV ABX complete, saline locked.
--- NOTE | 2023-05-29 09:00 | NUR ---
PRN percocet administered per patient request. Patient reports 8 pain. VSS. I/Os charted, prajapati catheter DC'd WNL. Pt education provided. No further needs at this time.
[2023-05-29 09:05] VITALS: BP 132/69
--- NOTE | 2023-05-29 10:25 | NUR ---
ALERT AND ORIENTED. SITTING UP IN BED. STATES SHE LIVES IN APARTMENT ALONE. DOES HAVE A RAMP TO GET INSIDE. DEMOGRAPHICS CONFIRMED WITH PATIENT. STATES SHE HAS 32 HOURS FOR CAREGIVERS A WEEK. USES A CPAP MACHINE, RAMP, CANE AND SHOWER CHAIR AT HOME. DOES NOT DRIVE. MOTHER, CAREGIVERS OR GOBHI ASSIST WITH TRANSPORTATION. DOES RECEIVE FOOD STAMPS AND UTILIZES FOOD BANK. DENIES FURTHER NEEDS AT THIS TIME. RE-ADMISSION ASSESSMENT COMPLETED. FEELS HER BIGGEST ISSUES WAS FAILURE OF ORAL ANTIBIOTIC. VERBALIZES SHE WILL NOTIFY STAFF IF NEEDS ARISE.
--- NOTE | 2023-05-29 10:29 | NUR ---
MS ROUNDS. SHORT VISIT. PT DENIED NEEDS. PROVIDED SUPPORTIVE PRESENCE; LISTENED EMPATHETICALLY; PROVIDED SILENT PRAYER.
--- NOTE | 2023-05-29 10:48 | NUR ---
In room with Dr Raman jones. Patient reports no pain or needs at this time.
--- NOTE | 2023-05-29 12:30 | NUR ---
Patient medicated with scheduled ABX. Lunch tray cleared. Pt states no needs at this time, family at bedside.
--- NOTE | 2023-05-29 13:00 | NUR ---
Administered scheduled medication per order. Pt up to BR to have medium sized soft brown BM. Patient states no further needs at this time.
--- NOTE | 2023-05-29 13:02 | NUR ---
Administered 2 percocet for 8/10 pain. Up to bathroom to have medium sized soft BM. Pt back to bed and states no further needs.
[2023-05-29 14:22] VITALS: BP 132/75
--- NOTE | 2023-05-29 15:00 | NUR ---
PRN pain medication 2 percocet administered for 8/10 pain. Pt denies further needs.
--- NOTE | 2023-05-29 16:05 | NUR ---
PATIENT CALLED WENT IN TO SEE WHAT SHE NEEDED. PATIENT ASKED IF SHE COULD HAVE A ORANGE POP OUT OF THE VENDING MACHINE SO I WENT AND TALKED TO THE NURSE AND SHE SAID NO WE CAN'T DO IT BUT YOU COULD ASK A FAMILY MEMBER. SO I WENT BACK TO THE PATIENT AND TOLD HER WHAT THE NURSE SAID. THEN THE PATIENT SAID SHE WILL ASK HER MOM TOMORROW TO GET HER AN ORANGE POP OUT OF VENDING MACHINE.
--- NOTE | 2023-05-29 17:00 | NUR ---
Scheduled medications administered. Patient eating dinner, has no needs at this time.
[2023-05-29 17:55] VITALS: BP 139/72
--- NOTE | 2023-05-29 19:32 | NUR ---
REPORT RECEIVED FROM DAY SHIFT RN. PT LYING IN BED RESTING WITH EYES CLOSED. RESPIRATIONS EVEN. CPAP IN PLACE. CALL LIGHT IN REACH.
[2023-05-29 20:10] VITALS: BP 124/71
--- NOTE | 2023-05-29 20:18 | NUR ---
PATIENT WENT FOR WALK AROUND THE NURSE'S STATION. OFFERED SOCKS FOR HER TO WEAR. PATIENT REFUSED STATED "NO".
--- NOTE | 2023-05-29 21:24 | NUR ---
EVENING ASSESSMENT COMPLETE. SCHEDULED MEDS ADMIN PER EMAR. PT REPORTS ABD PAIN /10. PRN FOR PAIN ADMIN PER EMAR. PT DENIES NAUSEA. ABD SOFT. BOWEL TONES ACTIVE. PT REPORTS FLATUS. MEL DRESSING LLQ WITH SMALL AMOUNT SHADOWING NOTED. UMBILICAL LAP SITE DRESSING CDI. RIGHT QUADRANT LAP SITES X 2 WITH STERI STRIPS INTACT. NO REDNESS OR DRAINAGE NOTED. MEL WITH SMALL AMOUNT SEROSANG DRAINAGE. PT DENIES FURTHER NEEDS. CALL LIGHT IN REACH.
--- NOTE | 2023-05-29 22:31 | NUR ---
PATIENT ASKED FOR ICE CREAM. PROVIDED. PATIENT OPENED IT AND THEN SAID "THIS ICE CREAM IS OLD". THIS CORPORATE TREASURY ANALYST LOOK AT THE DATE AND IT SAYS 2024. PATIENT STATED "I DONT WANT IT. GIVE ME PUDDING". VANILLA PUDDING PROVIDED. PATIENT GOT UP TO USE THE BATHROOM AND VOIDED 300ML YELLOW URINE. PATIENT IS BACK IN BED. ICE WATER PROVIDED.
--- NOTE | 2023-05-29 23:16 | NUR ---
CALL LIGHT ANSWERED. PT "HAS THE PENDING SALE TO [facility]" SANDWICH BOX PROVIDED PER REQUEST.
--- NOTE | 2023-05-30 | NUR ---
PATIENT CALLED WANTING TO WALK. THIS RUG SAMPLE BEVELER WALKED WITH PATIENT 2 LAPS AROUND NURSE'S STATION. PABLO CRACKERS AND MILK PROVIDED PER PATIENT. PATIENT IS BACK IN BED. NO OTHER NEEDS AT THIS TIME.
--- NOTE | 2023-05-30 02:04 | NUR ---
PT AMB AROUND NURSING UNIT INDEPENDENTLY WITH CANE. GAIT STEADY. NARCISA WELL.
--- NOTE | 2023-05-30 03:23 | NUR ---
CALL LIGHT ANSWERED. PT REPORTS ABD PAIN 11/11. PRN FOR PAIN ADMIN PER EMAR. PT DENIES NAUSEA. ABD ASSESSMENT UNCHANGED. MEL WITH 40 ML SEROSANG DRAINAGE. PT REPORTS FLATUS. NO FURTHER NEEDS. CALL LIGHT IN REACH.
[2023-05-30 05:34] VITALS: BP 133/80
--- NOTE | 2023-05-30 05:43 | NUR ---
VS AND I&O OBTAINED. PO ABX ADMIN PER EMAR. PT REPORTS VAGINAL YEAST INFECTION SYMPTOMS WHICH SHE REPORTS SHE GETS FREQUENTLY AFTER ANTIBIOTIC USE. WILL UPDATE MD. LAB IN ROOM FOR MORNING DRAW. NO FURTHER NEEDS.
[2023-05-30 06:01] LABS: BASOPHILS 0.9 % (0-2); EOSINOPHILS 2.6 % (0-6); HEMATOCRIT 43.5 % (35.0-50.0); HEMOGLOBIN 14.7 g/dL (12.0-18.0); MCH 30.7 (27-36); MCHC 33.9 g/dl (30-36); MCV 90.6 fl (81-99); MONOCYTES 7.3 % (0-12); NEUTROPHILS 50.2 % (39-80); PLATELET COUNT 270 K/uL (140-440); RBC 4.81 M/ul (4.3-5.7); RDW 14.3 (10.5-15.0)
[2023-05-30 06:10] LABS: ALBUMIN 3.2 g/dL (3.4-5.0); ANION GAP 10.7 (7-21); BILIRUBIN, TOTAL 0.1 ng/dL (0.2-1.0); BUN/CREATININE RATIO 32.92 (6.0-28.6); CALCIUM 8.9 mg/dL (8.5-10.1); CREATININE, SERUM 0.82 mg/dL (0.55-1.02); POTASSIUM 4.7 mmol/L (3.5-5.1); PROTEIN, TOTAL 6.4 g/dL (6.4-8.2)
--- NOTE | 2023-05-30 07:13 | NUR ---
REPORT RECEIVED FROM PHYSICAL MEDICINE TEACHER ROSIE GRANADOS. PATIENT SNORING. PATIENT CALL LIGHT AND PERSONAL BELONGINGS ARE WITHIN REACH.
--- NOTE | 2023-05-30 07:40 | NUR ---
UPDATED ON PT STATUS. NEW TELEPHONE ORDERS RECEIVED VERIFIED WITH READBACK METHOD.
--- NOTE | 2023-05-30 08:26 | NUR ---
PATIENT [id number] AND [id number] MEDICATIONS ADMINISTERED PER THE EMAR. PATIENT REQUESTING PERCOCET. PATIENT EDUCATED ON WHEN THE DOSE IS NEXT AVAILABLE. PATIENT FULL ASSESSMENT COMPLETE AND DOCUMENTED IN THE CHART. PATIENT PAIN WAS RATED 8/10 IN THE ABDOMINAL REGION. BOWEL TONES ARE ACTIVE IN ALL FOUR QUADRANTS. 3 INCISION SITES WITH SERI STRIPS INTACT. OLD DRAINAGE NOTED. ABD PAD IS CLEAN, DRY, AND INTACT. NO NEW DRAINAGE NOTED. SANGUINOUS DRAINAGE NOTED IN THE MEL DRAIN. LUNG SOUNDS ARE CLEAR BILATERALLY IN ALL LUNG MA. CARDIAC ASSESSMENT WITH NORMAL S1 AND S2 ON AUSCULATATION. CAPILLARY REFILL LESS THAN 3 SECONDS IN THE UPPER AND LOWER EXTREMITIES. RADIAL AND PEDAL PULSES ARE STRONG. PATIENT BREAKFAST TRAY IS AT THE BEDSIDE WITH TWO FRESH CUPS OF ICE WATER. PATIENT STATED NO FURTHER NEEDS AT THIS TIME. CALL LIGHT AND PERSONAL BELONGINGS ARE WITHIN REACH.
--- NOTE | 2023-05-30 08:56 | NUR ---
Call light answered, patient requests PRN pain medication, administered. Pt SBA to BR to void. Pt ambulating in hallway with cane with friend at side. Denies needs at this time.
[2023-05-30 09:12] VITALS: BP 145/80
--- NOTE | 2023-05-30 10:56 | NUR ---
PATIENT AMBULATING IN THE HALLWAY WITH TWO FRIEND/FAMILY.
--- NOTE | 2023-05-30 11:25 | NUR ---
THIS MORNING PATIENT WAS ABULATING AROUND MED SURG.
[2023-05-30 14:19] VITALS: BP 147/85
--- NOTE | 2023-05-30 15:16 | NUR ---
PATIENT PRN PERCOCET ADMINISTERED PER THE EMAR FOR 7/10 PAIN IN THE ABDOMEN. ABDOMEN WITH MILD DISTENTION AND TENDER UPON PALPATION. BOWEL TONES ARE ACTIVE IN ALL FOUR QUADRANTS. DRESSING WITH DRY DRAINAGE. NO NEW DRAINAGE NOTED ON SURGICAL SITES. MEL DRAIN IN PLACE. PATIENT IV FLUSHED WELL WITH 10 ML NORMAL SALINE. IV DRESSING IS CLEAN, DRY, AND INTACT. PATIENT WITH FAMILY MEMBER AT THE BEDSIDE. PATIENT AND FAMILY STATED NO FURTHER NEEDS AT THIS TIME. CALL LIGHT AND PERSONAL BELONGINGS ARE WITHIN REACH.
--- NOTE | 2023-05-30 15:50 | NUR ---
pt refused a shower and stated she would rather do a bedbath because of her MEL drain. Informed pt that we would still be able to do a shower with the MEL but she still preferred the bedbath. Bedbath performed and nicole care done. Pt washed face independantly. Provided pt with new gown. pt sitting up in bed and watching tv. Pt denies further needs at this time. Call light in reach.
[2023-05-30 18:51] VITALS: BP 146/75
[2023-05-30 21:35] VITALS: BP 145/77
--- NOTE | 2023-05-30 21:45 | NUR ---
awake, alert, oriented. using cpap. abd soft, tender, c/o abd pain, medicated with 2 percocet. abd dressing intact, yadira covered with gauze and old drainage, draining ss drainage. SL LArm, edema to R foot. watching tv
--- NOTE | 2023-05-31 00:14 | NUR ---
RESTING, EYES CLOSED, SNORING LOUDLY. USING HOME CPAP. NO C/O OR S/SX DISTRESS.
--- NOTE | 2023-05-31 01:54 | NUR ---
pt used call light, was incontinent of urine, bed linen and gown changed. floor wiped. voided over 1000cc in graduated hat. Back to bed, warm blanket given, no c/o pain at this time. did own wiping and got self in bed. tolerated well
--- NOTE | 2023-05-31 03:38 | NUR ---
Resting, snoring soundly, using CPAP, had called earlier for pain meds. Awakes easily, medicated with 2 norcos, sugar free jello given and fresh water. abd dressing no changes. johnna, stated passing gas. MEL patent. edema to R top foot intact, bandaid off R big toe. Goes back to sleep while holding water cup.
[2023-05-31 05:05] VITALS: BP 133/72
--- NOTE | 2023-05-31 05:15 | NUR ---
using cpap most of this shift. coop with assessment. MEL emptied 30cc ss drainage. abd dressing with old drainage at insertion site. ss intact. was medicated earlier for abd pain, effective, very drowsy, puding given earlier. up to br and voided large amount of clear urine again. placed back self to bed. using cpap.
[2023-05-31 05:40] LABS: BASOPHILS 0.4 % (0-2); EOSINOPHILS 3.7 % (0-6); HEMATOCRIT 44.4 % (35.0-50.0); HEMOGLOBIN 15.1 g/dL (12.0-18.0); MCH 30.8 (27-36); MCHC 33.9 g/dl (30-36); MCV 90.8 fl (81-99); NEUTROPHILS 56.9 % (39-80); PLATELET COUNT 286 K/uL (140-440); RBC 4.89 M/ul (4.3-5.7); RDW 14.5 (10.5-15.0)
[2023-05-31 05:52] LABS: ALBUMIN 3.2 g/dL (3.4-5.0); ALBUMIN/GLOBULIN RATIO 0.91 (1.1-2.4); ANION GAP 14.5 (7-21); BILIRUBIN, TOTAL 0.2 ng/dL (0.2-1.0); BUN/CREATININE RATIO 30.43 (6.0-28.6); CALCIUM 9.2 mg/dL (8.5-10.1); CREATININE, SERUM 0.92 mg/dL (0.55-1.02); POTASSIUM 4.5 mmol/L (3.5-5.1); PROTEIN, TOTAL 6.7 g/dL (6.4-8.2)
--- NOTE | 2023-05-31 07:13 | NUR ---
REPORT RECEIVED FROM RADIAL DRILL OPERATOR FOR PLASTIC RN NELSON. PATIENT LAYING IN BED AND SNORING. PATIENT CALL LIGHT AND PERSONAL BELONGINGS ARE WITHIN REACH.
--- NOTE | 2023-05-31 07:40 | NUR ---
Entered PT room to obtain blood sugar. PT is requesting her medication. Primary RN notified of PT request. Call light within reach. No other needs at this time.
--- NOTE | 2023-05-31 08:20 | NUR ---
0800 AND 0900 MEDICATIONS ADMINISTERED PER THE EMAR. PATIENT STATED PAIN OF 7/10 PAIN AT THIS TIME BUT IS NOT REQUESTING PAIN MEDICATIONS. PATIENT FULL ASSESSMENT COMPLETE AND DOCUMENTED IN THE CHART. PATIENT LUNG SOUNDS ARE CLEAR BILTAERALLY AND A LITTLE DIMINISHED IN THE LOWER LOBES BILATERALLY. PATIENT ON ROOM AIR AND WEARS HER CPAP AT NIGHT. NORMAL S1 AND S2 AUSCULTATED. BOWEL TONES ARE ACTIVE IN ALL FOUR QUADRANTS. PATIENT STATED TENDERNESS IN THE LUQ. ABDOMEN WITH MILD DISTENTION. LAP SITES WITH DRY DRAINAGE. MIDLINE ABDOMINAL INCISION AND MEL DRAIN DRESSING WITH NO NEW DRAINAGE NOTED. RADIAL PULSES STRONG. CAPILLARY REFILL IN THE UPPER AND LOWER EXTREMITIES LESS THAN 3 SECONDS BILATERALLY. BLISTER ON THE RIGHT GREAT TOE IS STILL INTACT. PATIENT STATED NO FURTHER NEEDS AT THIS TIME. CALL LIGHT AND PERSONAL BELONGINGS ARE WITHIN REACH.
[2023-05-31 09:04] VITALS: BP 140/85
--- NOTE | 2023-05-31 10:55 | NUR ---
PATIENT IS UP AND AMBULATING THE HALLWAYS WITH TWO FAMILY MEMBERS OR FRIENDS WITH THEM. PATIENTS GUESTS REQUESTING A CUP OF COFFEE WHEN THEY RETURN TO [facility] PATIENTS ROOM.
--- NOTE | 2023-05-31 11:31 | NUR ---
PATIENT RESTING IN BED WITH EYES CLOSED AND SNORING. TWO FAMILY MEMBERS OR FRIENDS ARE AT THE BEDSIDE. FAMILY STATED NO NEEDS AT THIS TIME.
[2023-05-31 13:25] VITALS: BP 143/95
--- NOTE | 2023-05-31 13:51 | NUR ---
UR NOTE MCG LYSIS OF ADHESIONS BY LAPAROSCOPY (ISC) 05/26/23 CLINICAL INDICATIONS FOR INDICATION OF PROCEDURE 05/26/23 MET STAGE 1 AND 2 05/30/23 VARIANCE STAGE 3
[2023-05-31] MEDS ORDERED: LEVOFLOXACIN750 MG PO (13:52)
[2023-05-31] MEDS ORDERED: METRONIDAZOLE250 MG PO (13:53)
[2023-05-31] MEDS ORDERED: IBUPROFEN600 MG PO (13:53)
[2023-05-31] MEDS ORDERED: FLUCONAZOLE200 MG PO (13:53)
[2023-05-31] MEDS ORDERED: OXYCODON-ACETA1 EAC2 PO (13:54)
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
--- NOTE | 2023-06-03 13:39 | DS ---
[facility] [place] [facility] [address], [place] [address] Signed ADMISSION DATE: 05/26/2023 DISCHARGE DATE: 05/31/2023 REASON FOR ADMISSION: Persistent left lower abdominal pain, known history of persisting recurring diverticulitis. HISTORY OF PRESENT ILLNESS: This 53-year-old morbidly obese white woman has longstanding recurrent episodes of diverticulitis and has been hospitalized at least twice in the past few weeks for same symptoms of left lower abdominal pain. CT scan findings have shown stranding in the sigmoid mesentery, but no sign of profound inflammatory change otherwise. She has been treated with outpatient oral antibiotics and was admitted on April 28 and discharged on May 02 for the same and admitted on May 23 and discharged on the also for diverticulitis. The patient has Percocet dependency taking six Percocet 7.5/325 tablets on a daily basis. It was said on good authority that she had run out of her Percocet pills most recently and presented to the emergency room where she was evaluated once again by CT scan. On this occasion, the CT scan, though largely unchanged, did show an area that was suggestive, though not diagnostic, of a "2.5 cm" fluid collection suggestive of peridiverticular abscess. Though not typically of significant concern in need for drainage and so forth. I did agree to admit her for further evaluation and care. She was quite painful in the left lower quadrant (and elsewhere) and had an elevated white count of 14.5. PAST MEDICAL HISTORY: Notable for: 1. Morbid obesity. 2. History of traumatic brain injury. 3. She has had nephrectomy in the past. 4. Left hip fracture. 5. Bipolar disease and schizoaffective disorder with borderline personality. 6. PTSD. 7. Anxiety. 8. Depression. 9. Fibromyalgia. PAST SURGICAL HISTORY: Includes: 1. in the past. Electronically Signed By: JENNY MOCK MD 06/03/23 1339 PATIENT NAME: LEA GARCIA DISCHARGE SUMMARY DATE OF : 70 REPORT #: [id number] PHYSICIAN: JENNY MOCK MD PCP: OSBALDO PFEIFFER MD REPORT IS CONFIDENTIAL AND NOT TO BE RELEASED WITHOUT AUTHORIZATION [facility] [address], [place] [address] Signed 2. Appendectomy. 3. Cholecystectomy. 4. Throat surgery including tracheostomy. 5. Extremity operations. 6. Cervical spine fusion. 7. Hysterectomy. 8. Hernia repair in the past. ALLERGIES: She has allergies of: 1. Amoxicillin. 2. Carbamazepine. 3. Toradol. 4. Macrobid. 5. Paliperidone. 6. Codeine. 7. Ancef. 8. Penicillins. PHYSICAL EXAMINATION: GENERAL: A morbidly obese white woman who did not look systemically toxic. NECK: Trachea is midline. CHEST: Clear. HEENT: Mucous membranes are moist. HEART: Regular without murmur. ABDOMEN: Quite obese. There is an incision at the side of the umbilicus from prior laparoscopy with no associated hernia. She has exquisite tenderness in the left lower quadrant. Palpation elsewhere showed only mild tenderness. CT scan showed diverticular changes with disease in the left lower abdomen and some possible focus of inflammation showing air within it suggesting a developing abscess 2.2 cm in size. She had hepatomegaly and possibly mild splenomegaly. Admission white count was 15.4, hematocrit 48.4, platelets 381,000. Subsequent white count was down to 11.3 notably. HOSPITAL COURSE: The patient has had multiple admissions for "diverticulitis" with worsening of symptoms and not improving with concurrent opioid dependency and recent discontinuance of the same. Prior evaluation included colonoscopy by Dr. Nadia Dickerson. She had additionally been recommended by Dr. Dickerson to undergo laparoscopic colectomy elsewhere due to her obesity and concerns regarding probability of incisional herniation developing. Electronically Signed By: JENNY MOCK MD 06/03/23 1339 PATIENT NAME: LEA GARCIA DISCHARGE SUMMARY DATE OF : 70 REPORT #: [id number] PHYSICIAN: JENNY MOCK MD PCP: OSBALDO PFEIFFER MD REPORT IS CONFIDENTIAL AND NOT TO BE RELEASED WITHOUT AUTHORIZATION [address] [address] Signed She was admitted and maintained on broad-spectrum antibiotic meropenem. She had prompt improvement of her white count to a normal level. Consultation was undertaken with the hospitalist, Dr. Luisito Gilbert regarding her psychiatric medications and overall medical issues, which of course are quite numerous. Given her complaints of left lower abdominal pain and given the discordance of her CT scan findings with that pain and mindful of her underlying chronic pain syndrome. She did undergo a laparoscopy on May 26, 2023. Peritoneal lavage and exploration of the abdomen including the left lower quadrant was undertaken. Lysis of omental adhesions to the abdominal wall was undertaken as well. The colon was well-visualized including the left colon, sigmoid and rectosigmoid. There was minimal inflammatory changes surrounding the small bowel loops in the area, but nothing to suggest severe perforated diverticulitis by any means. Specifically, there was no fibrinous changes, bile staining, purulence or other finding. On that basis, proceeding with sigmoid colectomy was deemed inadvisable. Peritoneal lavage and placement of left lower quadrant drain was undertaken in addition to omental adhesiolysis. The patient was maintained on broad-spectrum antibiotics and she was allowed a clear liquid diet promptly, which she tolerated well. She was transitioned to her usual Percocet dosage (labor service representative of maintenance opioid medication) Percocet 7.5/325 two tabs p.o. q.6 hours as well as Motrin to be given additionally for pain above and beyond her baseline. Although, a TIMBER DEADENER pump was deemed a possibility, it was never really required. She had continued improvement and removal of a Padilla catheter was undertaken. Oral antibiotics were initiated including Flagyl and Levaquin, which she additionally tolerated well. Low-fiber diet was initiated as well as ambulation. By day of discharge, she is tolerating a low-fiber diet, has no significant incisional pain. Has far less left lower abdominal pain and previously. She is tolerating an oral antibiotic regimen and a drain that was placed showing only serous fluid was removed. Incidentally, she did develop a yeast infection for which Diflucan was prescribed with good improvement. She is discharged to home and she will be staying with her mother for some time. I will see her back in a month or so. She has an appointment to see Dr. Pfeiffer, her primary provider, on June 11. A plan for tapering and ultimately withdrawal of her Percocet is described by the patient, who has conferred with Dr. Pfeiffer on this. I would fully concur with that approach. Alternatively, a substitution with bupropion or other opiate management strategy would be a consideration. DISCHARGE MEDICINES: Will include: Electronically Signed By: JENNY MOCK MD 06/03/23 1339 PATIENT NAME: LEA GARCIA DISCHARGE SUMMARY DATE OF : 70 REPORT #: [id number] PHYSICIAN: JENNY MOCK MD PCP: OSBALDO PFEIFFER MD REPORT IS CONFIDENTIAL AND NOT TO BE RELEASED WITHOUT AUTHORIZATION [facility] [address], [place] [address] Signed 1. Levaquin 750 mg one p.o. daily #10. 2. Fluconazole 200 mg p.o. daily #10. 3. Flagyl 250 mg p.o. t.i.d. #30. 4. Ibuprofen 600 mg p.o. q.6 hours as needed for moderate pain #60. 5. Oxycodone Tylenol 7.5/325 two tabs p.o. q.6 hours as needed for pain #30, no refill (note, the patient with ongoing refills Dr. Pfeiffer). 6. She will continue also Latuda 80 mg p.o. at bedtime, zolpidem 10 mg p.o. at bedtime, trazodone 50 mg 1-2 p.o. at bedtime. 7. Duloxetine 60 mg two tablets p.o. at bedtime. 8. Metformin 500 mg p.o. daily. 9. Methylphenidate 20 mg p.o. t.i.d. 10. Lamotrigine 150 mg two tablets p.o. at bedtime. FOLLOWUP PLAN: She is return to see me in approximately four weeks. She will call on Sunday for an appointment. She has an appointment set up with Dr. Pfeiffer on June 11. DISCHARGE DIAGNOSIS: 1. Chronic recurrent left lower abdominal pain attributed to acute diverticulitis. 2. Status post laparoscopy with laparoscopic evaluation including peritoneal lavage and placement of drain without resectional therapy (Hinchey class 1-2). 3. Morbid obesity. 4. History of traumatic brain injury. 5. Schizoaffective disorder and post-traumatic stress disorder. 6. Opioid dependency (Percocet). 7. Perioperative pelvic yeast infection (treated). 8. History of appendectomy, hysterectomy, cholecystectomy. 9. Allergy including penicillin, cephalosporins, codeine, carbamazepine, nitrofurantoin, Ketoralac, and paliperidone. MD BOAZ Alcantar/MODL /[id number] cc: Osbaldo Pfeiffer MD Electronically Signed By: JENNY MOCK MD 06/03/23 1339 PATIENT NAME: LEA GARCIA DISCHARGE SUMMARY DATE OF : 70 REPORT #: [id number] PHYSICIAN: JENNY MOCK MD PCP: OSBALDO PFEIFFER MD REPORT IS CONFIDENTIAL AND NOT TO BE RELEASED WITHOUT AUTHORIZATION [address] [address] Signed Chloe Haider MD Andrew L Bower, MD Brian Sabowitz, MD Copies: NADIA DICKERSON MD ~ Electronically Signed By: JENNY MOCK MD 06/03/23 1339 PATIENT NAME: LEA GARCIA GARCE DISCHARGE SUMMARY DATE OF : 70 REPORT #: [id number] PHYSICIAN: JENNY MOCK MD PCP: OSBALDO PFEIFFER MD REPORT IS CONFIDENTIAL AND NOT TO BE RELEASED WITHOUT AUTHORIZATION
== END 2023-05-31 15:02 | disposition home or self-care (01) | DRG 327 ==
LOC: ED 19:33 → CCU 22:35 → MS 05-27 13:14
PROVIDERS: Family Medicine; Internal Medicine; ADMIT Surgery; ATTEND Surgery
PROC: 0DNU4ZZ Release Omentum, Percutaneous Endoscopic Approach (ICD-10-PCS; principal; 2023-05-26)
PROC: 0DJ64ZZ Inspection of Stomach, Percutaneous Endoscopic Approach (ICD-10-PCS; 2023-05-26)
PROC: 3E1M48Z Irrigation of Peritoneal Cavity using Irrigating Substance, Percutaneous Endoscopic Approach (ICD-10-PCS; 2023-05-26)
PROC: 5A09357 Assistance with Respiratory Ventilation, Less than 24 Consecutive Hours, Continuous Positive Airway Pressure (ICD-10-PCS; 2023-05-26)
DX: K57.20 Diverticulitis of large intestine with perforation and abscess without bleeding (principal); F11.20 Opioid dependence, uncomplicated; E11.9 Type 2 diabetes mellitus without complications; F31.9 Bipolar disorder, unspecified; F90.9 Attention-deficit hyperactivity disorder, unspecified type; E66.01 Morbid (severe) obesity due to excess calories; F43.10 Post-traumatic stress disorder, unspecified; F41.9 Anxiety disorder, unspecified; M79.7 Fibromyalgia; F25.9 Schizoaffective disorder, unspecified; B37.9 Candidiasis, unspecified; K21.9 Gastro-esophageal reflux disease without esophagitis; G47.33 Obstructive sleep apnea (adult) (pediatric); F17.210 Nicotine dependence, cigarettes, uncomplicated; G89.29 Other chronic pain; K66.0 Peritoneal adhesions (postprocedural) (postinfection); Z90.49 Acquired absence of other specified parts of digestive tract; Z98.890 Other specified postprocedural states; Z87.820 Personal history of traumatic brain injury; Z90.5 Acquired absence of kidney; Z98.1 Arthrodesis status; Z90.710 Acquired absence of both cervix and uterus; Z93.0 Tracheostomy status; Z88.0 Allergy status to penicillin; Z88.8 Allergy status to other drugs, medicaments and biological substances; Z87.19 Personal history of other diseases of the digestive system; Z79.2 Long term (current) use of antibiotics; Z88.5 Allergy status to narcotic agent; Z88.1 Allergy status to other antibiotic agents; Z79.899 Other long term (current) drug therapy; Z79.84 Long term (current) use of oral hypoglycemic drugs
CPT/HCPCS: 00840; 36415; 74177; 80053; 81001; 85025; 85060; 93005; 93010; 94660; 94760; 94762; A9270; J0131; J0330; J0461; J1100; J1160; J1170; J1644; J1720; J1885; J2185; J2250; J2270; J2405; J2704; J2765; J3010; J3490; J7030; J7121; Q9967

== ENCOUNTER 2023-06-07 10:59 | Emergency (ER) | payer OTHER ==
[~2023-06-07] VITALS: Ht 162.6 cm; Wt 117.9 kg
[~2023-06-07 10:59] MED LIST changes: +FLUCONAZOLE200 MG PO; +IBUPROFEN600 MG PO
--- OUTSIDE RECORDS SUMMARY | 2023-06-07 11:05 | XMS ---
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 Security Retail Pharmacist Events 1 event(s) in the past 18 months Most recent security events: Elopement at [facility] 07/31/2022 14:18 - Patient eloped with IV in place. - Patient eloped before treatment completed. - Patient with suicidal and/or homicidal ideations eloped. Details: Patient LWBS
[2023-06-07] MEDS ORDERED: PERCOCET 7.5-31 EACH PO (13:55)
[2023-06-07 14:34] VITALS: BP 150/83
[2023-06-14] MEDS ORDERED: LEVOFLOXACIN500 MG PO (22:09)
== END 2023-06-07 14:38 | disposition home or self-care (01) ==
LOC: ED 10:59
DX: G89.18 Other acute postprocedural pain (principal); F25.0 Schizoaffective disorder, bipolar type; F60.3 Borderline personality disorder; F43.10 Post-traumatic stress disorder, unspecified; F41.9 Anxiety disorder, unspecified; F32.A Depression, unspecified; F17.200 Nicotine dependence, unspecified, uncomplicated; Z88.0 Allergy status to penicillin; Z88.1 Allergy status to other antibiotic agents; Z88.5 Allergy status to narcotic agent; Z88.8 Allergy status to other drugs, medicaments and biological substances; Z79.899 Other long term (current) drug therapy; Z79.84 Long term (current) use of oral hypoglycemic drugs
CPT/HCPCS: 99283; A9270

== ENCOUNTER 2023-07-04 10:01 | Emergency (ER) | payer OTHER ==
[~2023-07-04] VITALS: Ht 162.6 cm; Wt 117.4 kg
[2023-07-04 11:12] LABS: BILIRUBIN, URINE NEGATIVE (negative); BLOOD/HGB, URINE TRACE-I (Negative); KETONE, URINE NEGATIVE (Negative); LEUK ESTERASE, URINE NEGATIVE (negative); NITRITE, URINE NEGATIVE (negative); PH, URINE 5.5 (5-7)
[2023-07-04 11:20] LABS: BACTERIA, URINE RARE /hpf (negative); CASTS, URINE NONE SEEN \\lpf; CRYSTALS, URINE NONE SEEN (0-1+); EPITHELIAL CELLS, URINE SQUAMOUS 2+ /lpf (0-1+)
[2023-07-04 11:21] LABS: COLLECTION TYPE, URINE CLEAN CATCH; REFLEX CULTURE, URINE No (No)
[2023-07-04 11:27] LABS: BASOPHILS 0.8 % (0-2); EOSINOPHILS 0.7 % (0-6); HEMATOCRIT 46.6 % (35.0-50.0); HEMOGLOBIN 15.7 g/dL (12.0-18.0); LYMPHOCYTES 17.5 % (24-44); MCH 30.6 (27-36); MCHC 33.7 g/dl (30-36); MCV 90.8 fl (81-99); MONOCYTES 4.6 % (0-12); NEUTROPHILS 76.4 % (39-80); PLATELET COUNT 378 K/uL (140-440); RBC 5.14 M/ul (4.3-5.7); RDW 14.8 (10.5-15.0)
--- OUTSIDE RECORDS SUMMARY | 2023-07-04 11:41 | XMS ---
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 Security Rickshaw Driver Events 1 event(s) in the past 18 months Most recent security events: Elopement at [facility] 07/31/2022 14:18 - Patient eloped with IV in place. - Patient eloped before treatment completed. - Patient with suicidal and/or homicidal ideations eloped. Details: Patient LWBS
[2023-07-04 11:44] LABS: ALBUMIN 3.5 g/dL (3.4-5.0); ALBUMIN/GLOBULIN RATIO 0.8 (1.1-2.4); ANION GAP 17.3 (7-21); BILIRUBIN, TOTAL 0.2 ng/dL (0.2-1.0); BUN/CREATININE RATIO 19.23 (6.0-28.6); CALCIUM 10.4 mg/dL (8.5-10.1); CREATININE, SERUM 1.04 mg/dL (0.55-1.02); POTASSIUM 4.3 mmol/L (3.5-5.1); PROTEIN, TOTAL 7.9 g/dL (6.4-8.2)
[2023-07-04 14:28] VITALS: BP 113/79
== END 2023-07-04 14:35 | disposition home or self-care (01) ==
LOC: ED 10:01
PROVIDERS: Emergency Medicine
DX: K57.32 Diverticulitis of large intestine without perforation or abscess without bleeding (principal); K57.30 Diverticulosis of large intestine without perforation or abscess without bleeding; G89.29 Other chronic pain; F31.9 Bipolar disorder, unspecified; F25.9 Schizoaffective disorder, unspecified; F60.3 Borderline personality disorder; F43.10 Post-traumatic stress disorder, unspecified; F41.9 Anxiety disorder, unspecified; M79.7 Fibromyalgia; F17.200 Nicotine dependence, unspecified, uncomplicated; Z88.0 Allergy status to penicillin; Z88.8 Allergy status to other drugs, medicaments and biological substances; Z88.1 Allergy status to other antibiotic agents; Z88.6 Allergy status to analgesic agent; Z88.5 Allergy status to narcotic agent; Z79.899 Other long term (current) drug therapy; Z79.84 Long term (current) use of oral hypoglycemic drugs
CPT/HCPCS: 36415; 74177; 80053; 81001; 85025; 96361; 96375; 96376; 99284-25; J1170; J1790; J7030; Q9967

== ENCOUNTER 2023-10-10 11:02 | Emergency (ER) | payer OTHER ==
[~2023-10-10] VITALS: Ht 162.6 cm; Wt 120.4 kg
[2023-10-10] MEDS ORDERED: MORPHINE SULFATE 4 MG/ML VIAL IV ONE ×2 (11:45→13:15)
[2023-10-10] MEDS ORDERED: ondansetron HCL 4 MG/2 ML VIAL IV ONE (11:45)
[2023-10-10] MEDS ORDERED: SODIUM CHLORIDE 0.9% 1,000 ML IV PRN (11:45)
--- OUTSIDE RECORDS SUMMARY | 2023-10-10 11:54 | XMS ---
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 Security Hydroelectric Machinery Mechanic Events 1 event(s) in the past 18 months Most recent security events: Elopement at [facility] 07/31/2022 14:18 - Patient eloped with IV in place. - Patient eloped before treatment completed. - Patient with suicidal and/or homicidal ideations eloped. Details: Patient LWBS
[2023-10-10 11:56] LABS: BASOPHILS 1.8 % (0-2); EOSINOPHILS 2.1 % (0-6); HEMATOCRIT 48.9 % (35.0-50.0); HEMOGLOBIN 16.4 g/dL (12.0-18.0); LYMPHOCYTES 25.1 % (24-44); MCH 30.8 (27-36); MCHC 33.6 g/dl (30-36); MCV 91.7 fl (81-99); MONOCYTES 3.2 % (0-12); NEUTROPHILS 67.8 % (39-80); PLATELET COUNT 350 K/uL (140-440); RBC 5.34 M/ul (4.3-5.7); RDW 14.1 (10.5-15.0)
[2023-10-10 12:11] LABS: ALBUMIN 3.8 g/dL (3.4-5.0); ALBUMIN/GLOBULIN RATIO 0.95 (1.1-2.4); ANION GAP 12.6 (7-21); BILIRUBIN, TOTAL 0.2 ng/dL (0.2-1.0); CALCIUM 10.2 mg/dL (8.5-10.1); POTASSIUM 4.6 mmol/L (3.5-5.1); PROTEIN, TOTAL 7.8 g/dL (6.4-8.2)
[2023-10-10 12:59] LABS: BILIRUBIN, URINE NEGATIVE (negative); BLOOD/HGB, URINE NEGATIVE (Negative); KETONE, URINE NEGATIVE (Negative); LEUK ESTERASE, URINE NEGATIVE (negative); NITRITE, URINE POSITIVE (negative)
[2023-10-10 13:06] LABS: BACTERIA, URINE 4+ /hpf (negative); CRYSTALS, URINE NONE SEEN (0-1+); EPITHELIAL CELLS, URINE SQUAMOUS 1+ /lpf (0-1+); RED BLOOD CELLS, URINE 0-1 /hpf (0-5)
[2023-10-10 13:07] LABS: CASTS, URINE NONE SEEN \\lpf; COLLECTION TYPE, URINE CLEAN CATCH; REFLEX CULTURE, URINE Yes (No)
[2023-10-10] MEDS ORDERED: CIPROFLOXACIN/D5W 400 MG IV ONE (13:15)
[2023-10-10 14:20] VITALS: BP 150/78
[2023-10-10] MEDS ORDERED: OXYCODONE HCL 5 MG TAB PO ONE (14:30)
== END 2023-10-10 14:20 | disposition home or self-care (01) ==
LOC: ED 11:02
PROVIDERS: Emergency Medicine
DX: N39.0 Urinary tract infection, site not specified (principal); K57.32 Diverticulitis of large intestine without perforation or abscess without bleeding; G89.29 Other chronic pain; F31.9 Bipolar disorder, unspecified; F25.9 Schizoaffective disorder, unspecified; F60.3 Borderline personality disorder; F43.10 Post-traumatic stress disorder, unspecified; F41.9 Anxiety disorder, unspecified; M79.7 Fibromyalgia; F17.200 Nicotine dependence, unspecified, uncomplicated; Z88.0 Allergy status to penicillin; Z88.8 Allergy status to other drugs, medicaments and biological substances; Z88.6 Allergy status to analgesic agent; Z88.5 Allergy status to narcotic agent; Z88.1 Allergy status to other antibiotic agents; Z79.84 Long term (current) use of oral hypoglycemic drugs; Z79.899 Other long term (current) drug therapy
CPT/HCPCS: 36415; 74177; 80053; 81001; 83690; 85025; A9270; J0744; J2270; J2405; J7030; Q9967

== ENCOUNTER 2023-10-11 14:45 | Emergency (ER) | payer OTHER ==
[~2023-10-11] VITALS: Ht 162.6 cm; Wt 120.4 kg
--- OUTSIDE RECORDS SUMMARY | 2023-10-11 14:48 | XMS ---
PreManage Notification: ELA GARCIA Security Sap Solution Manager Consultant Events 1 event(s) in the past 18 months Most recent security events: Elopement at [facility] 07/31/2022 14:18 - Patient eloped with IV in place. - Patient eloped before treatment completed. - Patient with suicidal and/or homicidal ideations eloped. Details: Patient LWBS
[2023-10-11] MEDS ORDERED: PROMETHAZINE HCL 25 MG TAB PO ONE (15:00)
[2023-10-11] MEDS ORDERED: OXYCODONE/APAP 7.5/325 TAB PO ONE (15:15)
[2023-10-11] MEDS ORDERED: HYDROmorphone HCL 2 MG/ML VIAL IM ONE (16:30)
[2023-10-11 17:20] VITALS: BP 155/82
== END 2023-10-11 17:29 | disposition home or self-care (01) ==
LOC: ED 14:45
DX: R10.32 Left lower quadrant pain (principal); F43.10 Post-traumatic stress disorder, unspecified; F17.200 Nicotine dependence, unspecified, uncomplicated; Z88.0 Allergy status to penicillin; Z88.8 Allergy status to other drugs, medicaments and biological substances; Z88.6 Allergy status to analgesic agent; Z88.5 Allergy status to narcotic agent; Z79.899 Other long term (current) drug therapy; Z79.84 Long term (current) use of oral hypoglycemic drugs
CPT/HCPCS: 96372; 99284; J1170

== ENCOUNTER 2023-12-06 09:26 | Emergency (ER) | payer OTHER ==
[~2023-12-06] VITALS: Ht 162.6 cm; Wt 126.1 kg
--- OUTSIDE RECORDS SUMMARY | 2023-12-06 09:27 | XMS ---
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 Security Building Construction Contractor Events 1 event(s) in the past 18 months Most recent security events: Elopement at [facility] 07/31/2022 14:18 - Patient eloped with IV in place. - Patient eloped before treatment completed. - Patient with suicidal and/or homicidal ideations eloped. Details: Patient LWBS
[2023-12-06] MEDS ORDERED: CHLORPROMAZINE50 MG PO (09:51)
[2023-12-06 10:10] VITALS: BP 161/80
[2023-12-08] MEDS ORDERED: LURASIDONE HCL120 MG PO (15:36)
[2023-12-08] MEDS ORDERED: OXYCODONE HCL5 MG PO ×3 (17:32→17:36)
[2023-12-08] MEDS ORDERED: METRONIDAZOLE500 MG PO (17:34)
[2023-12-08] MEDS ORDERED: CIPRO500 MG PO (17:34)
== END 2023-12-06 10:10 | disposition home or self-care (01) ==
LOC: ED 09:26
DX: M25.511 Pain in right shoulder (principal); F43.10 Post-traumatic stress disorder, unspecified; F17.200 Nicotine dependence, unspecified, uncomplicated; X58.XXXA Exposure to other specified factors, initial encounter; Z79.899 Other long term (current) drug therapy; Z88.0 Allergy status to penicillin; Z88.1 Allergy status to other antibiotic agents; Z88.5 Allergy status to narcotic agent; Z88.6 Allergy status to analgesic agent; Z88.8 Allergy status to other drugs, medicaments and biological substances
CPT/HCPCS: 73030; 99283

== ENCOUNTER 2023-12-25 18:28 | Emergency (ER) | payer OTHER ==
[~2023-12-25] VITALS: Ht 162.6 cm; Wt 115.0 kg
[~2023-12-25 18:28] MED LIST changes: +CHLORPROMAZINE50 MG PO; +LURASIDONE HCL120 MG PO
--- OUTSIDE RECORDS SUMMARY | 2023-12-25 18:29 | XMS ---
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 Security Feller Hand Events 1 event(s) in the past 18 months Most recent security events: Elopement at [facility] 07/31/2022 14:18 - Patient eloped with IV in place. - Patient eloped before treatment completed. - Patient with suicidal and/or homicidal ideations eloped. Details: Patient LWBS
[2023-12-25] MEDS ORDERED: SULFAMETHOXAZO1 EAC1 PO (18:44)
[2023-12-25 19:07] LABS: BILIRUBIN, URINE NEGATIVE (negative); BLOOD/HGB, URINE NEGATIVE (Negative); KETONE, URINE NEGATIVE (Negative); LEUK ESTERASE, URINE TRACE (negative); NITRITE, URINE NEGATIVE (negative)
[2023-12-25 19:14] LABS: CRYSTALS, URINE NONE SEEN (0-1+); EPITHELIAL CELLS, URINE SQUAMOUS 1+ /lpf (0-1+); RED BLOOD CELLS, URINE 0-1 /hpf (0-5)
[2023-12-25 19:15] LABS: BACTERIA, URINE 2+ /hpf (negative); CASTS, URINE NONE SEEN \\lpf; COLLECTION TYPE, URINE CLEAN CATCH; REFLEX CULTURE, URINE Yes (No)
[2023-12-25] MEDS ORDERED: ONDANSETRON 4 MG TAB ODT SL ONE (19:15)
[2023-12-25] MEDS ORDERED: PHENAZOPYRIDINE HCL 95 MG TAB PO ONE (19:15)
[2023-12-25] MEDS ORDERED: PYRIDIUM200 MG PO (19:43)
[2023-12-25] MEDS ORDERED: BACTRIM DS TAB1 EACH PO (19:43)
[2023-12-25 19:48] VITALS: BP 168/78
== END 2023-12-25 19:48 | disposition home or self-care (01) ==
LOC: ED 18:28
PROVIDERS: Emergency Medicine
DX: N39.0 Urinary tract infection, site not specified (principal); Z91.148 Patient's other noncompliance with medication regimen for other reason; F17.200 Nicotine dependence, unspecified, uncomplicated; Z79.899 Other long term (current) drug therapy; Z79.84 Long term (current) use of oral hypoglycemic drugs; Z88.0 Allergy status to penicillin; Z88.5 Allergy status to narcotic agent; Z88.1 Allergy status to other antibiotic agents; Z88.8 Allergy status to other drugs, medicaments and biological substances
CPT/HCPCS: 81001; 99284; A9270

== ENCOUNTER 2023-12-27 12:10 | Emergency (ER) | payer OTHER ==
[~2023-12-27] VITALS: Ht 162.6 cm; Wt 124.8 kg
--- OUTSIDE RECORDS SUMMARY | 2023-12-27 12:11 | XMS ---
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 Security Ct Mri Technologist Events 1 event(s) in the past 18 months Most recent security events: Elopement at [facility] 07/31/2022 14:18 - Patient eloped with IV in place. - Patient eloped before treatment completed. - Patient with suicidal and/or homicidal ideations eloped. Details: Patient LWBS
[2023-12-27] MEDS ORDERED: PHENAZOPYRIDIN200 MG PO (12:23)
[2023-12-27] MEDS ORDERED: SODIUM CHLORIDE 0.9% 1,000 ML IV ONE (13:15)
[2023-12-27] MEDS ORDERED: ondansetron HCL 4 MG/2 ML VIAL IV ONE ×2 (13:15→15:30)
[2023-12-27] MEDS ORDERED: OXYCODONE/APAP 7.5/325 TAB PO ONE (13:45)
[2023-12-27 13:50] LABS: BASOPHILS 0.9 % (0-2); EOSINOPHILS 1.8 % (0-6); LYMPHOCYTES 23.8 % (24-44); MCH 30.7 (27-36); MCHC 33.4 g/dl (30-36); MONOCYTES 4.8 % (0-12); NEUTROPHILS 68.7 % (39-80); PLATELET COUNT 252 K/uL (140-440); RBC 4.57 M/ul (4.3-5.7); RDW 13.5 (10.5-15.0)
[2023-12-27 14:06] LABS: ALBUMIN 3.5 g/dL (3.4-5.0); ALBUMIN/GLOBULIN RATIO 0.92 (1.1-2.4); ANION GAP 14.4 (7-21); BILIRUBIN, TOTAL 0.3 ng/dL (0.2-1.0); BUN/CREATININE RATIO 15.31 (6.0-28.6); CALCIUM 9.3 mg/dL (8.5-10.1); CREATININE, SERUM 1.11 mg/dL (0.55-1.02); POTASSIUM 4.4 mmol/L (3.5-5.1); PROTEIN, TOTAL 7.3 g/dL (6.4-8.2)
[2023-12-27 14:49] LABS: BILIRUBIN, URINE NEGATIVE (negative); BLOOD/HGB, URINE NEGATIVE (Negative); KETONE, URINE NEGATIVE (Negative); LEUK ESTERASE, URINE TRACE (negative); NITRITE, URINE POSITIVE (negative); PH, URINE 6.5 (5-7)
[2023-12-27 14:55] LABS: BACTERIA, URINE 3+ /hpf (negative); CASTS, URINE NONE SEEN \\lpf; COLLECTION TYPE, URINE CLEAN CATCH; CRYSTALS, URINE NONE SEEN (0-1+); EPITHELIAL CELLS, URINE NONE SEEN /lpf (0-1+); RED BLOOD CELLS, URINE 0-1 /hpf (0-5); REFLEX CULTURE, URINE Yes (No); WHITE BLOOD CELLS, URINE 21-40 /HPF (0-5)
[2023-12-27] MEDS ORDERED: TRIMETHOPRIM IV ONE (15:15)
[2023-12-27] MEDS ORDERED: SULFAMETHOXAZOLE IV ONE (15:15)
[2023-12-27] MEDS ORDERED: DEXTROSE 5% IV ONE (15:15)
[2023-12-27] MEDS ORDERED: METRONIDAZOLE500 MG PO (15:29)
[2023-12-27] MEDS ORDERED: metroNIDAZOLE 250 MG TAB PO ONE (15:30)
[2023-12-27] MEDS ORDERED: HYDROmorphone HCL 1 MG/ML SYR IV ONE (15:30)
[2023-12-27 17:06] VITALS: BP 124/71
== END 2023-12-27 17:06 | disposition home or self-care (01) ==
LOC: ED 12:10
PROVIDERS: Emergency Medicine
DX: N39.0 Urinary tract infection, site not specified (principal); K57.32 Diverticulitis of large intestine without perforation or abscess without bleeding; F43.10 Post-traumatic stress disorder, unspecified; F17.200 Nicotine dependence, unspecified, uncomplicated; Z79.84 Long term (current) use of oral hypoglycemic drugs; Z79.899 Other long term (current) drug therapy; Z88.5 Allergy status to narcotic agent; Z88.1 Allergy status to other antibiotic agents; Z88.0 Allergy status to penicillin; Z88.6 Allergy status to analgesic agent; Z88.8 Allergy status to other drugs, medicaments and biological substances
CPT/HCPCS: 36415; 74177; 80053; 81001; 83690; 85025; 96366; 96375; 96376; 99284-25; J1170; J2405; J7030; J7060; Q9967

== ENCOUNTER 2023-12-28 21:17 | Emergency (ER) | payer OTHER ==
[~2023-12-28] VITALS: Ht 162.6 cm; Wt 124.8 kg
[~2023-12-28 21:17] MED LIST changes: +PHENAZOPYRIDIN200 MG PO
--- OUTSIDE RECORDS SUMMARY | 2023-12-28 21:18 | XMS ---
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 Security Tile Molder Hand Events 1 event(s) in the past 18 months Most recent security events: Elopement at [facility] 07/31/2022 14:18 - Patient eloped with IV in place. - Patient eloped before treatment completed. - Patient with suicidal and/or homicidal ideations eloped. Details: Patient LWBS
[2023-12-28] MEDS ORDERED: ondansetron HCL 4 MG/2 ML VIAL IV ONE ×2 (22:00→22:45)
[2023-12-28] MEDS ORDERED: SODIUM CHLORIDE 0.9% 1,000 ML IV ONE (22:00)
[2023-12-28 22:28] LABS: BASOPHILS 0.6 % (0-2); EOSINOPHILS 3.1 % (0-6); HEMATOCRIT 42.2 % (35.0-50.0); HEMOGLOBIN 14.1 g/dL (12.0-18.0); LYMPHOCYTES 27.1 % (24-44); MCH 30.8 (27-36); MCHC 33.3 g/dl (30-36); MCV 92.6 fl (81-99); MONOCYTES 5.6 % (0-12); NEUTROPHILS 63.6 % (39-80); PLATELET COUNT 250 K/uL (140-440); RBC 4.56 M/ul (4.3-5.7); RDW 13.8 (10.5-15.0)
[2023-12-28 22:44] LABS: ALBUMIN 3.4 g/dL (3.4-5.0); ALBUMIN/GLOBULIN RATIO 0.97 (1.1-2.4); ANION GAP 15.3 (7-21); BILIRUBIN, TOTAL 0.2 ng/dL (0.2-1.0); BUN/CREATININE RATIO 13.04 (6.0-28.6); CALCIUM 9.2 mg/dL (8.5-10.1); CREATININE, SERUM 1.15 mg/dL (0.55-1.02); POTASSIUM 4.3 mmol/L (3.5-5.1); PROTEIN, TOTAL 6.9 g/dL (6.4-8.2)
[2023-12-28] MEDS ORDERED: MORPHINE SULFATE 4 MG/ML VIAL IV ONE (22:45)
[2023-12-28 23:45] VITALS: BP 133/74
== END 2023-12-28 23:45 | disposition home or self-care (01) ==
LOC: ED 21:17
PROVIDERS: Family Medicine
DX: N39.0 Urinary tract infection, site not specified (principal); K57.92 Diverticulitis of intestine, part unspecified, without perforation or abscess without bleeding; F17.200 Nicotine dependence, unspecified, uncomplicated; Z88.0 Allergy status to penicillin; Z88.8 Allergy status to other drugs, medicaments and biological substances; Z88.5 Allergy status to narcotic agent; Z79.899 Other long term (current) drug therapy; Z79.84 Long term (current) use of oral hypoglycemic drugs
CPT/HCPCS: 36415; 80053; 85025; 96374; 96375; 96376; 99284-25; J2270; J2405; J7030

== ENCOUNTER 2024-01-23 15:49 | Emergency (ER) | payer OTHER ==
[~2024-01-23] VITALS: Ht 162.6 cm; Wt 125.7 kg
[2024-01-23] MEDS ORDERED: ondansetron HCL 4 MG/2 ML VIAL IV ONE ×2 (21:15→22:30)
[2024-01-23 21:18] LABS: BILIRUBIN, URINE NEGATIVE (negative); BLOOD/HGB, URINE TRACE-I (Negative); KETONE, URINE NEGATIVE (Negative); LEUK ESTERASE, URINE NEGATIVE (negative); NITRITE, URINE NEGATIVE (negative)
[2024-01-23 21:23] LABS: BACTERIA, URINE 4+ /hpf (negative); CASTS, URINE NONE SEEN \\lpf; COLLECTION TYPE, URINE CLEAN CATCH; CRYSTALS, URINE NONE SEEN (0-1+); EPITHELIAL CELLS, URINE SQUAMOUS 1+ /lpf (0-1+); RED BLOOD CELLS, URINE 0-1 /hpf (0-5); REFLEX CULTURE, URINE Yes (No)
[2024-01-23 21:53] LABS: EOSINOPHILS 1.4 % (0-6); HEMATOCRIT 44.3 % (35.0-50.0); LYMPHOCYTES 29.9 % (24-44); MCH 30.6 (27-36); MCHC 33.8 g/dl (30-36); MCV 90.7 fl (81-99); MONOCYTES 4.4 % (0-12); NEUTROPHILS 63.3 % (39-80); PLATELET COUNT 293 K/uL (140-440); RBC 4.88 M/ul (4.3-5.7); RDW 13.6 (10.5-15.0)
[2024-01-23 22:08] LABS: ALBUMIN 3.7 g/dL (3.4-5.0); ALBUMIN/GLOBULIN RATIO 0.97 (1.1-2.4); ANION GAP 14.9 (7-21); BILIRUBIN, TOTAL 0.2 ng/dL (0.2-1.0); BUN/CREATININE RATIO 15.53 (6.0-28.6); CALCIUM 9.8 mg/dL (8.5-10.1); CREATININE, SERUM 1.03 mg/dL (0.55-1.02); MAGNESIUM 1.8 mg/dL (1.8-2.4); POTASSIUM 3.9 mmol/L (3.5-5.1); PROTEIN, TOTAL 7.5 g/dL (6.4-8.2)
[2024-01-23] MEDS ORDERED: HYDROmorphone HCL 1 MG/ML SYR IV PRN (22:15)
[2024-01-23] MEDS ORDERED: FAMOTIDINE 20 MG/ 2 ML VIAL IV ONE (22:30)
[2024-01-23] MEDS ORDERED: LACTATED RINGER'S 1,000 ML IV ONE (22:30)
[2024-01-24] MEDS ORDERED: HYDROCODONE/ACETA 7.5/325 TAB PO ONE (00:30)
[2024-01-24] MEDS ORDERED: metroNIDAZOLE 250 MG TAB PO ONE (00:30)
[2024-01-24] MEDS ORDERED: CIPROFLOXACIN 500 MG TAB PO ONE (00:30)
[2024-01-24] MEDS ORDERED: CIPRO500 MG PO (01:28)
[2024-01-24] MEDS ORDERED: METRONIDAZOLE500 MG PO (01:28)
[2024-01-24] MEDS ORDERED: HYDROCODONE BIT/ACETAMINOPHEN 5/325 MG 1 TAB HOME.PACK PO ONE (01:30)
--- OUTSIDE RECORDS SUMMARY | 2024-01-24 01:35 | XMS ---
PreManage Notification: LAE GARCIA Security Services Rep Events 1 event(s) in the past 18 months Most recent security events: Elopement at [facility] 07/31/2022 14:18 - Patient eloped with IV in place. - Patient eloped before treatment completed. - Patient with suicidal and/or homicidal ideations eloped. Details: Patient LWBS
[2024-01-24 01:45] VITALS: BP 149/75
[2024-01-25] MEDS ORDERED: ELIQUIS5 MG PO (13:06)
[2024-01-25] MEDS ORDERED: CIPROFLOXACIN500 MG PO (18:35)
[2024-01-25] MEDS ORDERED: PERCOCET 5-3251 EACH PO (23:26)
== END 2024-01-24 01:10 | disposition home or self-care (01) ==
LOC: ED 15:49
PROVIDERS: Internal Medicine
DX: R10.32 Left lower quadrant pain (principal); F43.10 Post-traumatic stress disorder, unspecified; F17.200 Nicotine dependence, unspecified, uncomplicated; Z79.899 Other long term (current) drug therapy; Z88.0 Allergy status to penicillin; Z88.1 Allergy status to other antibiotic agents; Z88.6 Allergy status to analgesic agent; Z88.5 Allergy status to narcotic agent; Z88.8 Allergy status to other drugs, medicaments and biological substances
CPT/HCPCS: 36415; 80053; 81001; 83690; 83735; 84703; 85025; 87077; 87088; 87186; 96361; 96374; 96375; 96376; 99284-25; A9270; J1170; J2405; J7121

== ENCOUNTER 2024-01-25 11:25 | Emergency (ER) | payer OTHER ==
[~2024-01-25] VITALS: Ht 162.6 cm; Wt 125.5 kg
--- OUTSIDE RECORDS SUMMARY | 2024-01-25 11:26 | XMS ---
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 Security Drop Hammer Set Up Operator Events 1 event(s) in the past 18 months Most recent security events: Elopement at [facility] 07/31/2022 14:18 - Patient eloped with IV in place. - Patient eloped before treatment completed. - Patient with suicidal and/or homicidal ideations eloped. Details: Patient LWBS
[2024-01-25] MEDS ORDERED: ALBUTEROL/IPRATROPIUM 3 ML NEB ONE (11:34)
[2024-01-25] MEDS ORDERED: NITROGLYCERIN 0.4 MG SUBL SL PRN (11:45)
[2024-01-25] MEDS ORDERED: HYDROmorphone HCL 1 MG/ML SYR IV ONE ×2 (11:45→13:00)
[2024-01-25] MEDS ORDERED: ALBUTEROL/IPRATROPIUM 3 ML NEB INH ONE (11:45)
[2024-01-25] MEDS ORDERED: ondansetron HCL 4 MG/2 ML VIAL IV ONE (11:45)
[2024-01-25 11:57] LABS: BASOPHILS 0.7 % (0-2); EOSINOPHILS 2.6 % (0-6); HEMATOCRIT 41.2 % (35.0-50.0); HEMOGLOBIN 13.9 g/dL (12.0-18.0); LYMPHOCYTES 22.8 % (24-44); MCH 30.8 (27-36); MCHC 33.8 g/dl (30-36); MCV 91.2 fl (81-99); MONOCYTES 3.4 % (0-12); NEUTROPHILS 70.5 % (39-80); PLATELET COUNT 240 K/uL (140-440); RBC 4.52 M/ul (4.3-5.7); RDW 13.6 (10.5-15.0)
[2024-01-25 12:09] LABS: INR 1.08 (0.80-1.30); PARTIAL THROMBOPLASTIN TIME 27.5 Sec (22.9-41.3); PROTIME 13.3 Sec (11.2-14.2)
[2024-01-25 12:20] LABS: ALBUMIN 3.4 g/dL (3.4-5.0); ANION GAP 13.3 (7-21); BILIRUBIN, TOTAL 0.3 ng/dL (0.2-1.0); BUN/CREATININE RATIO 13.11 (6.0-28.6); CALCIUM 9.5 mg/dL (8.5-10.1); CREATININE, SERUM 1.22 mg/dL (0.55-1.02); MAGNESIUM 1.7 mg/dL (1.8-2.4); POTASSIUM 4.3 mmol/L (3.5-5.1); PROTEIN, TOTAL 6.8 g/dL (6.4-8.2)
[2024-01-25] MEDS ORDERED: APIXABAN 5 MG TAB PO ONE (13:00)
[2024-01-25] MEDS ORDERED: ELIQUIS5 MG PO (13:06)
[2024-01-25 13:18] VITALS: BP 143/75
[2024-01-25] MEDS ORDERED: CIPROFLOXACIN500 MG PO (18:35)
--- NOTE | 2024-01-25 19:48 | EKG ---
[facility] [address] [facility] [place] [address] Signed Normal sinus rhythm Possible Left atrial enlargement Borderline ECG No previous ECGs available Confirmed by Octavio Clark MD ([id number]) on 01/25/2024 7:48:24 PM Electronically Signed By: OCTAVIO CLARK MD 01/25/241947 PATIENT NAME: LEA GARCIA GRACE Electrocardiogram DATE OF : 70 PHYSICIAN: OCTAVIO CLARK MD REPORT #: [id number] REPORT IS CONFIDENTIAL AND NOT TO BE RELEASED WITHOUT AUTHORIZATION
[2024-01-25] MEDS ORDERED: PERCOCET 5-3251 EACH PO (23:26)
== END 2024-01-25 13:18 | disposition home or self-care (01) ==
LOC: ED 11:25
PROVIDERS: Emergency Medicine
DX: I26.93 Single subsegmental thrombotic pulmonary embolism without acute cor pulmonale (principal); I26.99 Other pulmonary embolism without acute cor pulmonale; F31.9 Bipolar disorder, unspecified; F17.200 Nicotine dependence, unspecified, uncomplicated; E66.01 Morbid (severe) obesity due to excess calories; Z88.0 Allergy status to penicillin; Z88.8 Allergy status to other drugs, medicaments and biological substances; Z88.1 Allergy status to other antibiotic agents; Z88.5 Allergy status to narcotic agent; Z79.899 Other long term (current) drug therapy; Z79.84 Long term (current) use of oral hypoglycemic drugs
CPT/HCPCS: 36415; 71260; 80053; 83735; 83880; 84484; 85025; 85610; 85730; 93005; 93010; 94640; 99285-25; J1170; J2405

== ENCOUNTER 2024-01-25 18:18 | Emergency (ER) | payer OTHER ==
[~2024-01-25 18:18] MED LIST changes: +ELIQUIS5 MG PO
--- OUTSIDE RECORDS SUMMARY | 2024-01-25 18:25 | XMS ---
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 Security Snow Removing Supervisor Events 1 event(s) in the past 18 months Most recent security events: Elopement at [facility] 07/31/2022 14:18 - Patient eloped with IV in place. - Patient eloped before treatment completed. - Patient with suicidal and/or homicidal ideations eloped. Details: Patient LWBS
[2024-01-25] MEDS ORDERED: CIPROFLOXACIN500 MG PO (18:35)
[2024-01-25] MEDS ORDERED: ACETAMINOPHEN 500 MG TAB PO ONE (19:00)
[2024-01-25] MEDS ORDERED: ONDANSETRON 4 MG TAB ODT SL ONE (19:00)
[2024-01-25] MEDS ORDERED: HYDROmorphone HCL 1 MG/ML SYR IV PRN (19:30)
[2024-01-25] MEDS ORDERED: SODIUM CHLORIDE 0.9% 1,000 ML IV SCH (22:00)
[2024-01-25] MEDS ORDERED: PERCOCET 5-3251 EACH PO (23:26)
[2024-01-25] MEDS ORDERED: OXYCODONE/ACETAMINOPHEN 1 TAB HOME.PACK PO ONE (23:30)
[2024-01-25 23:40] VITALS: BP 134/84
--- NOTE | 2024-01-26 15:09 | EKG ---
[facility] [address] [facility] [place], [place] [address] Signed Normal sinus rhythm Cannot rule out Inferior infarct , age undetermined Abnormal ECG When compared with ECG of 25-JAN-2024 11:24, (Unconfirmed) No significant change was found Confirmed by Octavio Clark MD ([id number]) on 01/26/2024 3:09:05 PM Electronically Signed By: OCTAVIO CLARK MD 01/26/24 1509 PATIENT NAME: LEA GARCIA GRACE Electrocardiogram DATE OF : 70 PHYSICIAN: OCTAVIO CLARK MD REPORT #: [id number] REPORT IS CONFIDENTIAL AND NOT TO BE RELEASED WITHOUT AUTHORIZATION
== END 2024-01-25 23:41 | disposition home or self-care (01) ==
LOC: ED 18:18
DX: I26.93 Single subsegmental thrombotic pulmonary embolism without acute cor pulmonale (principal); I26.99 Other pulmonary embolism without acute cor pulmonale; F31.9 Bipolar disorder, unspecified; F17.200 Nicotine dependence, unspecified, uncomplicated; Z88.0 Allergy status to penicillin; Z88.8 Allergy status to other drugs, medicaments and biological substances; Z88.1 Allergy status to other antibiotic agents; Z88.6 Allergy status to analgesic agent; Z88.5 Allergy status to narcotic agent; Z79.01 Long term (current) use of anticoagulants; Z79.84 Long term (current) use of oral hypoglycemic drugs; Z79.899 Other long term (current) drug therapy
CPT/HCPCS: 93005; 93010; 96374; 96376; 99284-25; A9270; J1170; J7030

== ENCOUNTER 2024-02-04 08:55 | Emergency (ER) | payer OTHER ==
[~2024-02-04] VITALS: Ht 162.6 cm; Wt 129.8 kg
[2024-02-04 09:38] LABS: BILIRUBIN, URINE NEGATIVE (negative); BLOOD/HGB, URINE NEGATIVE (Negative); KETONE, URINE NEGATIVE (Negative); LEUK ESTERASE, URINE NEGATIVE (negative); NITRITE, URINE NEGATIVE (negative); PH, URINE 5.5 (5-7)
[2024-02-04] MEDS ORDERED: TRIMETHOPRIM/SULFAMETHOXAZOLE 1 EA TAB PO ONE (09:45)
[2024-02-04] MEDS ORDERED: ONDANSETRON 4 MG TAB ODT SL ONE (09:45)
[2024-02-04] MEDS ORDERED: OXYCODONE/APAP 5/325 TAB PO ONE (09:45)
[2024-02-04] MEDS ORDERED: FLUCONAZOLE 200 MG TAB PO ONE (09:45)
[2024-02-04] MEDS ORDERED: clindamycin HCL 300 MG CAP PO ONE (09:45)
[2024-02-04 09:49] LABS: BACTERIA, URINE 2+ /hpf (negative); CASTS, URINE HYALINE 1+ \\lpf; COLLECTION TYPE, URINE CLEAN CATCH; CRYSTALS, URINE NONE SEEN (0-1+); EPITHELIAL CELLS, URINE SQUAMOUS 3+ /lpf (0-1+); RED BLOOD CELLS, URINE 0-1 /hpf (0-5); REFLEX CULTURE, URINE No (No); WHITE BLOOD CELLS, URINE 0-1 /HPF (0-5)
[2024-02-04] MEDS ORDERED: BACTRIM DS TAB1 EACH PO (10:18)
[2024-02-04] MEDS ORDERED: CLEOCIN HCL300 MG PO (10:18)
[2024-02-04] MEDS ORDERED: DIFLUCAN100 MG PO (10:18)
[2024-02-04 10:32] VITALS: BP 140/83
== END 2024-02-04 10:33 | disposition home or self-care (01) ==
LOC: ED 08:55
PROVIDERS: Emergency Medicine
DX: L03.317 Cellulitis of buttock (principal); B37.2 Candidiasis of skin and nail; F17.200 Nicotine dependence, unspecified, uncomplicated; Z88.0 Allergy status to penicillin; Z88.1 Allergy status to other antibiotic agents; Z88.5 Allergy status to narcotic agent; Z79.01 Long term (current) use of anticoagulants; Z79.899 Other long term (current) drug therapy; Z79.84 Long term (current) use of oral hypoglycemic drugs
CPT/HCPCS: 81001; 99283; A9270

== ENCOUNTER 2024-02-07 17:12 | Emergency (ER) | payer OTHER ==
[~2024-02-07] VITALS: Ht 162.6 cm; Wt 123.4 kg
--- NOTE | ~2024-02-07 | EKG ---
[facility] [address] [facility] [place], [place] [address] Draft EKG completed, results pending confirmation PATIENT NAME: RADHALEA Electrocardiogram DATE OF : 70 PHYSICIAN: PRELIMINARY REPORT #: [id number] REPORT IS CONFIDENTIAL AND NOT TO BE RELEASED WITHOUT AUTHORIZATION
[~2024-02-07 17:12] MED LIST changes: +DIFLUCAN100 MG PO
[2024-02-07 20:16] VITALS: BP 0/0
== END 2024-02-07 20:16 | disposition left against medical advice (07) ==
LOC: ED 17:12
DX: Z53.21 Procedure and treatment not carried out due to patient leaving prior to being seen by health care provider (principal)
CPT/HCPCS: 93005; 93010

== ENCOUNTER 2024-03-06 08:40 | Emergency (ER) | payer OTHER ==
[~2024-03-06] VITALS: Ht 162.6 cm; Wt 122.2 kg
[2024-03-06] MEDS ORDERED: ONDANSETRON 4 MG TAB ODT SL ONE (10:00)
[2024-03-06 10:04] LABS: HEMATOCRIT 45.5 % (35.0-50.0); HEMOGLOBIN 15.5 g/dL (12.0-18.0); LYMPHOCYTES 26.6 % (24-44); MCH 31.1 (27-36); MCHC 34.1 g/dl (30-36); MCV 91.3 fl (81-99); NEUTROPHILS 65.4 % (39-80); PLATELET COUNT 290 K/uL (140-440); RBC 4.99 M/ul (4.3-5.7); RDW 14.7 (10.5-15.0)
[2024-03-06 10:20] LABS: ALBUMIN 3.8 g/dL (3.4-5.0); ALBUMIN/GLOBULIN RATIO 1.06 (1.1-2.4); ANION GAP 15.4 (7-21); BILIRUBIN, TOTAL 0.4 ng/dL (0.2-1.0); BUN/CREATININE RATIO 13.33 (6.0-28.6); CALCIUM 9.8 mg/dL (8.5-10.1); CREATININE, SERUM 1.2 mg/dL (0.55-1.02); POTASSIUM 4.4 mmol/L (3.5-5.1); PROTEIN, TOTAL 7.4 g/dL (6.4-8.2)
[2024-03-06 10:26] LABS: BILIRUBIN, URINE NEGATIVE (negative); BLOOD/HGB, URINE NEGATIVE (Negative); KETONE, URINE NEGATIVE (Negative); LEUK ESTERASE, URINE NEGATIVE (negative); NITRITE, URINE NEGATIVE (negative); PH, URINE 5.5 (5-7)
[2024-03-06 10:34] LABS: BACTERIA, URINE NONE SEEN /hpf (negative); CASTS, URINE HYALINE 1+ \\lpf; COLLECTION TYPE, URINE VOID; CRYSTALS, URINE NONE SEEN (0-1+); EPITHELIAL CELLS, URINE SQUAMOUS 3+ /lpf (0-1+); RED BLOOD CELLS, URINE 0-1 /hpf (0-5); REFLEX CULTURE, URINE No (No); WHITE BLOOD CELLS, URINE 0-1 /HPF (0-5)
[2024-03-06] MEDS ORDERED: OXYCODONE/APAP 5/325 TAB PO ONE (11:15)
[2024-03-06] MEDS ORDERED: metroNIDAZOLE 250 MG TAB PO ONE (11:15)
[2024-03-06] MEDS ORDERED: levoFLOXacin 750 MG TAB PO ONE (11:15)
[2024-03-06] MEDS ORDERED: PERCOCET 5-3251 EACH PO (12:34)
[2024-03-06] MEDS ORDERED: METRONIDAZOLE500 MG PO (12:34)
[2024-03-06] MEDS ORDERED: ONDANSETRON ODT8 MG SL (12:34)
[2024-03-06] MEDS ORDERED: LEVOFLOXACIN750 MG PO (12:34)
[2024-03-06 12:41] VITALS: BP 138/56
== END 2024-03-06 12:43 | disposition home or self-care (01) ==
LOC: ED 08:40
PROVIDERS: Emergency Medicine
DX: K57.30 Diverticulosis of large intestine without perforation or abscess without bleeding (principal); N20.0 Calculus of kidney; K76.0 Fatty (change of) liver, not elsewhere classified; E27.9 Disorder of adrenal gland, unspecified; F17.200 Nicotine dependence, unspecified, uncomplicated; Z88.0 Allergy status to penicillin; Z88.5 Allergy status to narcotic agent; Z88.8 Allergy status to other drugs, medicaments and biological substances; Z79.01 Long term (current) use of anticoagulants; Z79.84 Long term (current) use of oral hypoglycemic drugs; Z79.899 Other long term (current) drug therapy
CPT/HCPCS: 36415; 74176; 80053; 81001; 83690; 85025; 99284-25; A9270

== ENCOUNTER 2024-03-21 10:28 | Emergency (ER) | payer OTHER ==
[~2024-03-21] VITALS: Ht 162.6 cm; Wt 124.9 kg
[~2024-03-21 10:28] MED LIST changes: +ONDANSETRON ODT8 MG SL
[2024-03-21] MEDS ORDERED: ondansetron HCL 4 MG/2 ML VIAL IV ONE (11:00)
[2024-03-21 11:21] LABS: BASOPHILS 0.6 % (0-2); EOSINOPHILS 2.3 % (0-6); HEMATOCRIT 40.2 % (35.0-50.0); HEMOGLOBIN 13.9 g/dL (12.0-18.0); MCH 31.5 (27-36); MCHC 34.5 g/dl (30-36); MCV 91.1 fl (81-99); MONOCYTES 4.4 % (0-12); NEUTROPHILS 68.7 % (39-80); PLATELET COUNT 222 K/uL (140-440); RBC 4.41 M/ul (4.3-5.7); RDW 14.3 (10.5-15.0)
[2024-03-21 11:38] LABS: ALBUMIN 3.1 g/dL (3.4-5.0); ALBUMIN/GLOBULIN RATIO 0.94 (1.1-2.4); ANION GAP 10.6 (7-21); BILIRUBIN, TOTAL 0.2 ng/dL (0.2-1.0); BUN/CREATININE RATIO 10.52 (6.0-28.6); CALCIUM 9.4 mg/dL (8.5-10.1); CREATININE, SERUM 1.14 mg/dL (0.55-1.02); POTASSIUM 4.6 mmol/L (3.5-5.1); PROTEIN, TOTAL 6.4 g/dL (6.4-8.2)
[2024-03-21] MEDS ORDERED: HYDROmorphone HCL 1 MG/ML SYR IV PRN (11:45)
[2024-03-21] MEDS ORDERED: SODIUM CHLORIDE 0.9% 1,000 ML IV ONE (11:45)
[2024-03-21] MEDS ORDERED: levoFLOXacin 750 MG/150 ML BAG IV ONE (14:00)
[2024-03-21 14:11] LABS: BILIRUBIN, URINE NEGATIVE (negative); BLOOD/HGB, URINE NEGATIVE (Negative); KETONE, URINE NEGATIVE (Negative); LEUK ESTERASE, URINE NEGATIVE (negative); NITRITE, URINE POSITIVE (negative); PH, URINE 6.5 (5-7)
[2024-03-21 14:16] LABS: EPITHELIAL CELLS, URINE SQUAMOUS 1+ /lpf (0-1+)
[2024-03-21 14:17] LABS: BACTERIA, URINE 3+ /hpf (negative); CASTS, URINE NONE SEEN \\lpf; COLLECTION TYPE, URINE CLEAN CATCH; CRYSTALS, URINE NONE SEEN (0-1+); RED BLOOD CELLS, URINE 0-1 /hpf (0-5); REFLEX CULTURE, URINE Yes (No)
[2024-03-21 16:27] VITALS: BP 148/71
== END 2024-03-21 16:28 | disposition home or self-care (01) ==
LOC: ED 10:28
PROVIDERS: Emergency Medicine
DX: K57.32 Diverticulitis of large intestine without perforation or abscess without bleeding (principal); F31.9 Bipolar disorder, unspecified; F17.200 Nicotine dependence, unspecified, uncomplicated; Z79.01 Long term (current) use of anticoagulants; Z79.84 Long term (current) use of oral hypoglycemic drugs; Z79.899 Other long term (current) drug therapy; Z88.0 Allergy status to penicillin; Z88.1 Allergy status to other antibiotic agents; Z88.5 Allergy status to narcotic agent; Z88.6 Allergy status to analgesic agent
CPT/HCPCS: 36415; 74177; 80053; 81001; 83690; 85025; 87077; 87088; 87186; 96361; 96366; 96375; 96376; 99284-25; J1956; J2405; J7030; Q9967

== ENCOUNTER 2024-05-14 09:51 | Emergency (ER) | payer OTHER ==
[~2024-05-14] VITALS: Ht 162.6 cm; Wt 134.0 kg
[2024-05-14] MEDS ORDERED: DOXYCYCLINE HY100 MG PO (10:40)
[2024-05-14] MEDS ORDERED: LIDOCAINE30 G1 TOP (10:40)
[2024-05-14] MEDS ORDERED: ACETAMINOPHEN 500 MG TAB PO ONE (10:45)
[2024-05-14] MEDS ORDERED: BACITRACIN 0.9 GM 1 PKT PKT TOP ONE (10:45)
[2024-05-14] MEDS ORDERED: LIDOCAINE 5% OINTMENT TUBE TOP ONE (10:45)
[2024-05-14 11:06] VITALS: BP 132/60
== END 2024-05-14 11:11 | disposition home or self-care (01) ==
LOC: ED 09:51
DX: L98.411 Non-pressure chronic ulcer of buttock limited to breakdown of skin (principal); E11.9 Type 2 diabetes mellitus without complications; F17.200 Nicotine dependence, unspecified, uncomplicated; Z86.711 Personal history of pulmonary embolism; Z88.0 Allergy status to penicillin; Z88.8 Allergy status to other drugs, medicaments and biological substances; Z88.1 Allergy status to other antibiotic agents; Z88.5 Allergy status to narcotic agent; Z88.6 Allergy status to analgesic agent; Z79.02 Long term (current) use of antithrombotics/antiplatelets; Z79.84 Long term (current) use of oral hypoglycemic drugs; Z79.899 Other long term (current) drug therapy
CPT/HCPCS: 99282; A9270

== ENCOUNTER 2024-05-17 15:18 | Emergency (ER) | payer OTHER ==
[~2024-05-17] VITALS: Ht 162.6 cm; Wt 123.0 kg
[~2024-05-17 15:18] MED LIST changes: +LIDOCAINE30 G1 TOP
[2024-05-17] MEDS ORDERED: SODIUM CHLORIDE 0.9% 1,000 ML IV ONE (16:15)
[2024-05-17] MEDS ORDERED: ondansetron HCL 4 MG/2 ML VIAL IV ONE ×2 (16:15→17:30)
[2024-05-17] MEDS ORDERED: HYDROmorphone HCL 1 MG/ML SYR IV ONE ×2 (16:15→17:45)
[2024-05-17 16:31] LABS: BASOPHILS 0.8 % (0-2); EOSINOPHILS 2.5 % (0-6); HEMOGLOBIN 13.7 g/dL (12.0-18.0); LYMPHOCYTES 26.6 % (24-44); MCH 31.8 (27-36); MCHC 34.2 g/dl (30-36); MCV 92.8 fl (81-99); MONOCYTES 5.3 % (0-12); NEUTROPHILS 64.8 % (39-80); PLATELET COUNT 255 K/uL (140-440); RBC 4.31 M/ul (4.3-5.7); RDW 14.4 (10.5-15.0)
[2024-05-17 16:48] LABS: ALBUMIN 3.3 g/dL (3.4-5.0); ALBUMIN/GLOBULIN RATIO 0.97 (1.1-2.4); ANION GAP 13.1 (7-21); BILIRUBIN, TOTAL 0.3 ng/dL (0.2-1.0); BUN/CREATININE RATIO 10.89 (6.0-28.6); CALCIUM 9.6 mg/dL (8.5-10.1); CREATININE, SERUM 1.01 mg/dL (0.55-1.02); POTASSIUM 4.1 mmol/L (3.5-5.1); PROTEIN, TOTAL 6.7 g/dL (6.4-8.2)
[2024-05-17 17:18] LABS: BILIRUBIN, URINE NEGATIVE (negative); BLOOD/HGB, URINE NEGATIVE (Negative); KETONE, URINE NEGATIVE (Negative); LEUK ESTERASE, URINE NEGATIVE (negative); NITRITE, URINE NEGATIVE (negative)
[2024-05-17 17:28] LABS: BACTERIA, URINE NONE SEEN /hpf (negative); CASTS, URINE NONE SEEN \\lpf; COLLECTION TYPE, URINE CLEAN CATCH; CRYSTALS, URINE NONE SEEN (0-1+); RED BLOOD CELLS, URINE 0-1 /hpf (0-5); REFLEX CULTURE, URINE No (No)
[2024-05-17 17:53] VITALS: BP 126/95
== END 2024-05-17 18:10 | disposition home or self-care (01) ==
LOC: ED 15:18
PROVIDERS: Emergency Medicine
DX: R10.32 Left lower quadrant pain (principal); F31.9 Bipolar disorder, unspecified; F17.200 Nicotine dependence, unspecified, uncomplicated; Z88.0 Allergy status to penicillin; Z88.1 Allergy status to other antibiotic agents; Z88.5 Allergy status to narcotic agent; Z88.8 Allergy status to other drugs, medicaments and biological substances; Z79.01 Long term (current) use of anticoagulants; Z79.899 Other long term (current) drug therapy
CPT/HCPCS: 36415; 74176; 80053; 81001; 83690; 85025; 96361; 96374; 96375; 96376; 99284-25; J1171; J2405; J7030

== ENCOUNTER 2024-05-19 08:26 | Emergency (ER) | payer OTHER ==
[~2024-05-19] VITALS: Ht 162.6 cm; Wt 129.5 kg
[2024-05-19] MEDS ORDERED: OXYCODONE/APAP 5/325 TAB PO ONE (09:00)
[2024-05-19] MEDS ORDERED: CLINDAMYCIN HC150 MG PO (09:02)
[2024-05-19 09:11] VITALS: BP 166/98
== END 2024-05-19 09:11 | disposition home or self-care (01) ==
LOC: ED 08:26
DX: S31.819A Unspecified open wound of right buttock, initial encounter (principal); F17.200 Nicotine dependence, unspecified, uncomplicated; Z88.0 Allergy status to penicillin; Z88.8 Allergy status to other drugs, medicaments and biological substances; Z88.5 Allergy status to narcotic agent; Z79.899 Other long term (current) drug therapy; Z79.84 Long term (current) use of oral hypoglycemic drugs; X58.XXXA Exposure to other specified factors, initial encounter
CPT/HCPCS: 99282

== ENCOUNTER 2024-05-21 14:53 | Emergency (ER) | payer OTHER ==
[~2024-05-21] VITALS: Ht 162.6 cm; Wt 123.9 kg
[~2024-05-21 14:53] MED LIST changes: +CLINDAMYCIN HC150 MG PO
[2024-05-21] MEDS ORDERED: ASPIRIN 81 MG CHEW PO ONE (15:15)
[2024-05-21] MEDS ORDERED: MORPHINE SULFATE 4 MG/ML VIAL IV ONE (15:15)
[2024-05-21] MEDS ORDERED: NITROGLYCERIN 0.4 MG SUBL SL PRN (15:15)
[2024-05-21] MEDS ORDERED: ondansetron HCL 4 MG/2 ML VIAL IV ONE (15:15)
[2024-05-21] MEDS ORDERED: ondansetron HCL 4 MG/2 ML VIAL ONE (15:21)
[2024-05-21 15:37] LABS: HEMOGLOBIN 14.6 g/dL (12.0-18.0); MCH 31.2 (27-36); MCHC 33.5 g/dl (30-36)
[2024-05-21 15:39] LABS: BASOPHILS 1.5 % (0-2); EOSINOPHILS 3.4 % (0-6); HEMATOCRIT 43.7 % (35.0-50.0); LYMPHOCYTES 25.5 % (24-44); MCV 93.3 fl (81-99); MONOCYTES 4.3 % (0-12); NEUTROPHILS 65.3 % (39-80); PLATELET COUNT 282 K/uL (140-440); RBC 4.69 M/ul (4.3-5.7); RDW 14.1 (10.5-15.0)
[2024-05-21 15:57] LABS: ALBUMIN 3.7 g/dL (3.4-5.0); ANION GAP 17.2 (7-21); BILIRUBIN, TOTAL 0.3 ng/dL (0.2-1.0); BUN/CREATININE RATIO 13.88 (6.0-28.6); CALCIUM 9.7 mg/dL (8.5-10.1); CREATININE, SERUM 1.08 mg/dL (0.55-1.02); MAGNESIUM 2.1 mg/dL (1.8-2.4); POTASSIUM 4.2 mmol/L (3.5-5.1); PROTEIN, TOTAL 7.4 g/dL (6.4-8.2)
[2024-05-21 16:15] VITALS: BP 136/74
[2024-05-21] MEDS ORDERED: HYDROCODONE/ACETA 7.5/325 TAB PO ONE (16:15)
--- NOTE | 2024-05-24 08:26 | EKG ---
[facility] [address] [facility] [place], [place] [address] Signed Normal sinus rhythm Possible Left atrial enlargement Low voltage QRS Borderline ECG No previous ECGs available Confirmed by Octavio Clark MD ([id number]) on 05/24/2024 8:26:08 AM Electronically Signed By: OCTAVIO CLARK MD 05/24/24825 PATIENT NAME: LEA GARCIA GRACE Electrocardiogram DATE OF : 70 PHYSICIAN: OCTAVIO CLARK MD REPORT #: [id number] REPORT IS CONFIDENTIAL AND NOT TO BE RELEASED WITHOUT AUTHORIZATION
== END 2024-05-21 16:21 | disposition home or self-care (01) ==
LOC: ED 14:53
PROVIDERS: Emergency Medicine
DX: R07.89 Other chest pain (principal); F17.200 Nicotine dependence, unspecified, uncomplicated; Z86.711 Personal history of pulmonary embolism; Z88.0 Allergy status to penicillin; Z88.1 Allergy status to other antibiotic agents; Z88.5 Allergy status to narcotic agent; Z88.8 Allergy status to other drugs, medicaments and biological substances; Z79.01 Long term (current) use of anticoagulants; Z79.84 Long term (current) use of oral hypoglycemic drugs; Z79.899 Other long term (current) drug therapy
CPT/HCPCS: 36415; 71045; 80053; 83735; 84484; 85025; 85379; 85610; 93005; 93010; 96374; 96375; 99285-25; A9270; J2270; J2405

== ENCOUNTER 2024-05-24 12:57 | Emergency (ER) | payer OTHER ==
[~2024-05-24] VITALS: Ht 162.6 cm; Wt 120.0 kg
[2024-05-24 13:34] LABS: BASOPHILS 0.9 % (0-2); EOSINOPHILS 6.3 % (0-6); HEMATOCRIT 43.5 % (35.0-50.0); HEMOGLOBIN 14.6 g/dL (12.0-18.0); MCH 31.6 (27-36); MCHC 33.5 g/dl (30-36); MCV 94.3 fl (81-99); MONOCYTES 4.5 % (0-12); NEUTROPHILS 54.3 % (39-80); PLATELET COUNT 290 K/uL (140-440); RBC 4.61 M/ul (4.3-5.7); RDW 14.3 (10.5-15.0)
[2024-05-24 13:43] LABS: INR 1.13 (0.80-1.30); PROTIME 13.8 Sec (11.2-14.2)
[2024-05-24 13:50] LABS: ALBUMIN 3.5 g/dL (3.4-5.0); ANION GAP 12.6 (7-21); BILIRUBIN, TOTAL 0.3 ng/dL (0.2-1.0); BUN/CREATININE RATIO 22.12 (6.0-28.6); CALCIUM 9.3 mg/dL (8.5-10.1); CREATININE, SERUM 1.13 mg/dL (0.55-1.02); MAGNESIUM 1.7 mg/dL (1.8-2.4); POTASSIUM 4.6 mmol/L (3.5-5.1)
[2024-05-24] MEDS ORDERED: HYDROmorphone HCL 1 MG/ML SYR IM ONE (14:15)
[2024-05-24 15:25] VITALS: BP 143/74
--- NOTE | 2024-05-25 20:19 | EKG ---
[facility] [address] [facility] [place] [address] Signed Normal sinus rhythm Normal ECG When compared with ECG of 21-MAY-2024 15:00, No significant change was found Confirmed by Octavio Clark MD ([id number]) on 05/25/2024 8:19:35 PM Electronically Signed By: OCTAVIO CLARK MD 05/25/24 2019 PATIENT NAME: LEA GARCIA GRACE Electrocardiogram DATE OF : 70 PHYSICIAN: OCTAVIO CLARK MD REPORT #: [id number] REPORT IS CONFIDENTIAL AND NOT TO BE RELEASED WITHOUT AUTHORIZATION
== END 2024-05-24 15:25 | disposition home or self-care (01) ==
LOC: ED 12:57
PROVIDERS: Emergency Medicine
DX: R07.89 Other chest pain (principal); L08.9 Local infection of the skin and subcutaneous tissue, unspecified; F17.200 Nicotine dependence, unspecified, uncomplicated; Z86.711 Personal history of pulmonary embolism; Z88.0 Allergy status to penicillin; Z88.1 Allergy status to other antibiotic agents; Z88.5 Allergy status to narcotic agent; Z88.8 Allergy status to other drugs, medicaments and biological substances; Z79.01 Long term (current) use of anticoagulants; Z79.84 Long term (current) use of oral hypoglycemic drugs; Z79.899 Other long term (current) drug therapy
CPT/HCPCS: 36415; 71045; 80053; 83735; 84484; 85025; 85610; 93005; 93010; 96372; 99285-25; J1171

== ENCOUNTER 2024-06-03 14:27 | Emergency (ER) | payer OTHER ==
[~2024-06-03] VITALS: Ht 162.6 cm; Wt 119.7 kg
[2024-06-03] MEDS ORDERED: PERCOCET 5-3251 EACH PO (15:00)
[2024-06-03] MEDS ORDERED: LIDOCAINE 2% VISCOUS 6 ML SYR TOP ONE (16:45)
[2024-06-03] MEDS ORDERED: EPI TOP (16:51)
[2024-06-03] MEDS ORDERED: LIDO TOP (16:51)
[2024-06-03 17:18] VITALS: BP 116/55
== END 2024-06-03 17:10 | disposition home or self-care (01) ==
LOC: ED 14:27
DX: Z48.00 Encounter for change or removal of nonsurgical wound dressing (principal); Z76.0 Encounter for issue of repeat prescription; E66.01 Morbid (severe) obesity due to excess calories; F17.200 Nicotine dependence, unspecified, uncomplicated; Z88.0 Allergy status to penicillin; Z88.5 Allergy status to narcotic agent; Z88.8 Allergy status to other drugs, medicaments and biological substances; Z79.899 Other long term (current) drug therapy; Z79.84 Long term (current) use of oral hypoglycemic drugs
CPT/HCPCS: 99283

== ENCOUNTER 2024-06-13 10:31 | Emergency (ER) | payer OTHER ==
[~2024-06-13] VITALS: Ht 162.6 cm; Wt 128.7 kg
[~2024-06-13 10:31] MED LIST changes: +EPI TOP; +LIDO TOP
[2024-06-13] MEDS ORDERED: ASPIRIN 81 MG CHEW PO ONE (10:45)
[2024-06-13] MEDS ORDERED: NITROGLYCERIN 0.4 MG SUBL SL PRN (10:45)
[2024-06-13 11:05] LABS: BASOPHILS 0.8 % (0-2); EOSINOPHILS 1.9 % (0-6); HEMATOCRIT 40.8 % (35.0-50.0); HEMOGLOBIN 13.8 g/dL (12.0-18.0); MCH 31.5 (27-36); MCHC 33.9 g/dl (30-36); MCV 93.1 fl (81-99); MONOCYTES 4.4 % (0-12); NEUTROPHILS 68.9 % (39-80); PLATELET COUNT 232 K/uL (140-440); RBC 4.38 M/ul (4.3-5.7); RDW 13.8 (10.5-15.0)
[2024-06-13 11:25] LABS: ALBUMIN 3.3 g/dL (3.4-5.0); ANION GAP 13.3 (7-21); BILIRUBIN, TOTAL 0.2 ng/dL (0.2-1.0); CALCIUM 9.4 mg/dL (8.5-10.1); MAGNESIUM 1.6 mg/dL (1.8-2.4); POTASSIUM 4.3 mmol/L (3.5-5.1); PROTEIN, TOTAL 6.6 g/dL (6.4-8.2)
[2024-06-13 11:47] LABS: BILIRUBIN, URINE NEGATIVE (negative); BLOOD/HGB, URINE NEGATIVE (Negative); KETONE, URINE NEGATIVE (Negative); LEUK ESTERASE, URINE NEGATIVE (negative); NITRITE, URINE NEGATIVE (negative)
[2024-06-13 11:54] LABS: EPITHELIAL CELLS, URINE SQUAMOUS 1+ /lpf (0-1+)
[2024-06-13 11:55] LABS: BACTERIA, URINE 2+ /hpf (negative); CASTS, URINE NONE SEEN \\lpf; COLLECTION TYPE, URINE CLEAN CATCH; CRYSTALS, URINE NONE SEEN (0-1+); RED BLOOD CELLS, URINE 0-1 /hpf (0-5); REFLEX CULTURE, URINE Yes (No)
[2024-06-13] MEDS ORDERED: HYDROCODONE/ACETA 5/325 TAB PO ONE (12:30)
[2024-06-13] MEDS ORDERED: CLINDAMYCIN PHOSPHATE/D5W 600 MG/50 ML PIGGYBACK IV ONE (12:30)
[2024-06-13] MEDS ORDERED: ondansetron HCL 4 MG TAB PO ONE (12:30)
[2024-06-13] MEDS ORDERED: CLEOCIN HCL300 MG PO (12:40)
[2024-06-13] MEDS ORDERED: clindamycin HCL 300 MG CAP PO ONE (12:45)
[2024-06-13 12:53] VITALS: BP 157/99
--- NOTE | 2024-06-13 22:01 | EKG ---
[facility] [address] [facility] [place] [address] Signed Normal sinus rhythm Normal ECG When compared with ECG of 24-MAY-2024 13:04, No significant change was found Confirmed by Brian Conroy MD () on 06/13/2024 10:01:45 PM Electronically Signed By: BRIAN CONROY MD 06/13/242200 PATIENT NAME: LEA GARCIA GRACE Electrocardiogram DATE OF : 70 PHYSICIAN: BRIAN CONROY MD REPORT #: [id number] REPORT IS CONFIDENTIAL AND NOT TO BE RELEASED WITHOUT AUTHORIZATION
[2024-06-14] MEDS ORDERED: CLINDAMYCIN HC300 MG PO (16:09)
[2024-06-14] MEDS ORDERED: OXYCODON-ACETA1 EAC2 PO (16:10)
[2024-06-14] MEDS ORDERED: REGLAN10 MG PO (18:28)
== END 2024-06-13 12:55 | disposition home or self-care (01) ==
LOC: ED 10:31
PROVIDERS: Emergency Medicine
DX: R07.9 Chest pain, unspecified (principal); F17.200 Nicotine dependence, unspecified, uncomplicated; Z88.0 Allergy status to penicillin; Z88.1 Allergy status to other antibiotic agents; Z88.5 Allergy status to narcotic agent; Z88.8 Allergy status to other drugs, medicaments and biological substances; Z79.01 Long term (current) use of anticoagulants; Z79.899 Other long term (current) drug therapy
CPT/HCPCS: 36415; 71045; 80053; 81001; 83735; 84484; 85025; 87077; 87088; 87186; 93005; 93010; 99285-25; 99406; A9270

== ENCOUNTER 2024-06-14 15:55 | Emergency (ER) | payer OTHER ==
[~2024-06-14] VITALS: Ht 162.6 cm; Wt 95.7 kg
[2024-06-14] MEDS ORDERED: CLINDAMYCIN HC300 MG PO (16:09)
[2024-06-14] MEDS ORDERED: OXYCODON-ACETA1 EAC2 PO (16:10)
[2024-06-14] MEDS ORDERED: REGLAN10 MG PO (18:28)
[2024-06-14] MEDS ORDERED: PROMETHAZINE HCL 50 MG/ML SDV IM ONE (18:30)
[2024-06-14] MEDS ORDERED: HYDROCODONE/ACETA 5/325 TAB PO ONE (18:30)
[2024-06-14 19:15] VITALS: BP 156/88
== END 2024-06-14 19:15 | disposition home or self-care (01) ==
LOC: ED 15:55
DX: R11.2 Nausea with vomiting, unspecified (principal); N39.0 Urinary tract infection, site not specified; F17.200 Nicotine dependence, unspecified, uncomplicated; Z88.0 Allergy status to penicillin; Z88.1 Allergy status to other antibiotic agents; Z88.6 Allergy status to analgesic agent; Z88.5 Allergy status to narcotic agent; Z88.8 Allergy status to other drugs, medicaments and biological substances; Z79.84 Long term (current) use of oral hypoglycemic drugs; Z79.899 Other long term (current) drug therapy
CPT/HCPCS: 96372; 99283; J2550

== ENCOUNTER 2024-07-08 17:14 | Emergency (ER) | payer OTHER ==
[~2024-07-08] VITALS: Ht 162.6 cm; Wt 131.1 kg
[~2024-07-08 17:14] MED LIST changes: +CLINDAMYCIN HC300 MG PO
[2024-07-08] MEDS ORDERED: ondansetron HCL 4 MG/2 ML VIAL IV ONE (18:15)
[2024-07-08] MEDS ORDERED: SODIUM CHLORIDE 0.9% 1,000 ML IV ONE (18:15)
[2024-07-08] MEDS ORDERED: MORPHINE SULFATE 4 MG/ML VIAL IV ONE (18:15)
[2024-07-08 19:18] LABS: EOSINOPHILS 3.9 % (0-6); HEMATOCRIT 39.3 % (35.0-50.0); HEMOGLOBIN 13.2 g/dL (12.0-18.0); LYMPHOCYTES 29.8 % (24-44); MCH 31.1 (27-36); MCHC 33.5 g/dl (30-36); MCV 93.1 fl (81-99); MONOCYTES 5.7 % (0-12); NEUTROPHILS 59.6 % (39-80); PLATELET COUNT 234 K/uL (140-440); RBC 4.22 M/ul (4.3-5.7); RDW 13.6 (10.5-15.0)
[2024-07-08 19:35] LABS: ALBUMIN 3.1 g/dL (3.4-5.0); ALBUMIN/GLOBULIN RATIO 1.03 (1.1-2.4); ANION GAP 10.1 (7-21); BILIRUBIN, TOTAL 0.1 ng/dL (0.2-1.0); BUN/CREATININE RATIO 15.73 (6.0-28.6); CALCIUM 9.3 mg/dL (8.5-10.1); CREATININE, SERUM 0.89 mg/dL (0.55-1.02); POTASSIUM 4.1 mmol/L (3.5-5.1); PROTEIN, TOTAL 6.1 g/dL (6.4-8.2)
[2024-07-08 19:37] LABS: LACTIC ACID, BLOOD 1.5 mmol/L (0.4-2.0)
[2024-07-08 21:11] LABS: BILIRUBIN, URINE POSITIVE (negative); BLOOD/HGB, URINE NEGATIVE (Negative); KETONE, URINE NEGATIVE (Negative); LEUK ESTERASE, URINE NEGATIVE (negative); NITRITE, URINE POSITIVE (negative)
[2024-07-08 21:18] LABS: BACTERIA, URINE 4+ /hpf (negative); CASTS, URINE NONE SEEN \\lpf; CRYSTALS, URINE NONE SEEN (0-1+); EPITHELIAL CELLS, URINE SQUAMOUS 1+ /lpf (0-1+); RED BLOOD CELLS, URINE 0-1 /hpf (0-5); WHITE BLOOD CELLS, URINE >50 /HPF (0-5)
[2024-07-08 21:19] LABS: COLLECTION TYPE, URINE CLEAN CATCH; REFLEX CULTURE, URINE Yes (No)
[2024-07-08] MEDS ORDERED: BACTRIM DS TAB1 EACH PO (21:47)
[2024-07-08] MEDS ORDERED: TRIMETHOPRIM/SULFAMETHOXAZOLE 1 EA HOME.PACK PO ONE (22:00)
[2024-07-08 22:13] VITALS: BP 102/55
== END 2024-07-08 22:12 | disposition home or self-care (01) ==
LOC: ED 17:14
PROVIDERS: Emergency Medicine
DX: N39.0 Urinary tract infection, site not specified (principal); F17.200 Nicotine dependence, unspecified, uncomplicated; Z88.0 Allergy status to penicillin; Z88.5 Allergy status to narcotic agent; Z88.1 Allergy status to other antibiotic agents; Z88.8 Allergy status to other drugs, medicaments and biological substances; Z79.01 Long term (current) use of anticoagulants; Z79.899 Other long term (current) drug therapy; Z79.84 Long term (current) use of oral hypoglycemic drugs
CPT/HCPCS: 36415; 74176; 80053; 81001; 83605; 83690; 84703; 85025; 87088; 96374; 96375; 99284-25; A9270; J2270; J2405; J7030

== ENCOUNTER 2024-07-12 17:12 | Emergency (ER) | payer OTHER ==
[~2024-07-12] VITALS: Ht 162.6 cm; Wt 126.1 kg
[2024-07-12] MEDS ORDERED: ondansetron HCL 4 MG/2 ML VIAL IV PRN (19:15)
[2024-07-12] MEDS ORDERED: HYDROmorphone HCL 1 MG/ML SYR IM ONE ×3 (20:00→22:00)
[2024-07-12] MEDS ORDERED: HYDROmorphone HCL 1 MG/ML SYR IV ONE ×2 (20:00→21:30)
[2024-07-12 20:11] LABS: BASOPHILS 1.4 % (0-2); EOSINOPHILS 1.7 % (0-6); HEMATOCRIT 41.1 % (35.0-50.0); HEMOGLOBIN 13.8 g/dL (12.0-18.0); LYMPHOCYTES 23.8 % (24-44); MCH 31.3 (27-36); MCHC 33.7 g/dl (30-36); MONOCYTES 5.3 % (0-12); NEUTROPHILS 67.8 % (39-80); PLATELET COUNT 283 K/uL (140-440); RBC 4.42 M/ul (4.3-5.7); RDW 13.8 (10.5-15.0)
[2024-07-12 20:25] LABS: ALBUMIN 3.4 g/dL (3.4-5.0); ALBUMIN/GLOBULIN RATIO 0.97 (1.1-2.4); ANION GAP 13.9 (7-21); BILIRUBIN, TOTAL 0.3 ng/dL (0.2-1.0); BUN/CREATININE RATIO 14.28 (6.0-28.6); CALCIUM 10.2 mg/dL (8.5-10.1); CREATININE, SERUM 0.98 mg/dL (0.55-1.02); POTASSIUM 3.9 mmol/L (3.5-5.1); PROTEIN, TOTAL 6.9 g/dL (6.4-8.2)
[2024-07-12 20:28] LABS: BILIRUBIN, URINE NEGATIVE (negative); BLOOD/HGB, URINE NEGATIVE (Negative); KETONE, URINE NEGATIVE (Negative); LEUK ESTERASE, URINE NEGATIVE (negative); NITRITE, URINE NEGATIVE (negative); PH, URINE 7.5 (5-7)
[2024-07-12 20:42] LABS: CRYSTALS, URINE NONE SEEN (0-1+); EPITHELIAL CELLS, URINE SQUAMOUS 2+ /lpf (0-1+)
[2024-07-12 20:43] LABS: BACTERIA, URINE 1+ /hpf (negative); CASTS, URINE NONE SEEN \\lpf; COLLECTION TYPE, URINE CLEAN CATCH; REFLEX CULTURE, URINE No (No)
[2024-07-12] MEDS ORDERED: ondansetron HCL 4 MG/2 ML VIAL IV ONE (21:30)
[2024-07-12] MEDS ORDERED: CIPRO500 MG PO (21:58)
[2024-07-12] MEDS ORDERED: METRONIDAZOLE500 MG PO (21:58)
[2024-07-12] MEDS ORDERED: metroNIDAZOLE 250 MG TAB PO ONE (22:00)
[2024-07-12] MEDS ORDERED: HYDROCODONE BIT/ACETAMINOPHEN 5/325 MG 1 TAB HOME.PACK PO ONE (22:00)
[2024-07-12] MEDS ORDERED: CIPROFLOXACIN 500 MG TAB PO ONE (22:00)
[2024-07-12 22:13] VITALS: BP 128/64
== END 2024-07-12 22:35 | disposition home or self-care (01) ==
LOC: ED 17:12
PROVIDERS: Emergency Medicine
DX: K57.32 Diverticulitis of large intestine without perforation or abscess without bleeding (principal); F25.9 Schizoaffective disorder, unspecified; F17.200 Nicotine dependence, unspecified, uncomplicated; Z88.0 Allergy status to penicillin; Z88.1 Allergy status to other antibiotic agents; Z88.5 Allergy status to narcotic agent; Z88.8 Allergy status to other drugs, medicaments and biological substances; Z79.899 Other long term (current) drug therapy; Z79.01 Long term (current) use of anticoagulants; Z79.84 Long term (current) use of oral hypoglycemic drugs
CPT/HCPCS: 36415; 74176; 80053; 81001; 85025; 96374; 96375; 96376; 99284-25; A9270; J1171; J2405

== ENCOUNTER 2024-07-15 09:41 | Emergency (ER) | payer OTHER ==
[~2024-07-15] VITALS: Ht 162.6 cm; Wt 122.9 kg
[2024-07-15] MEDS ORDERED: CIPROFLOXACIN500 MG PO (09:53)
[2024-07-15 10:50] LABS: BASOPHILS 0.7 % (0-2); EOSINOPHILS 2.1 % (0-6); HEMATOCRIT 41.4 % (35.0-50.0); HEMOGLOBIN 13.9 g/dL (12.0-18.0); LYMPHOCYTES 19.3 % (24-44); MCH 31.3 (27-36); MCHC 33.5 g/dl (30-36); MCV 93.4 fl (81-99); MONOCYTES 4.8 % (0-12); NEUTROPHILS 73.1 % (39-80); PLATELET COUNT 246 K/uL (140-440); RBC 4.44 M/ul (4.3-5.7); RDW 14.1 (10.5-15.0)
[2024-07-15 10:53] LABS: ALBUMIN 3.4 g/dL (3.4-5.0); ANION GAP 14.5 (7-21); BILIRUBIN, TOTAL 0.3 ng/dL (0.2-1.0); BUN/CREATININE RATIO 13.2 (6.0-28.6); CALCIUM 9.5 mg/dL (8.5-10.1); CREATININE, SERUM 1.06 mg/dL (0.55-1.02); POTASSIUM 4.5 mmol/L (3.5-5.1); PROTEIN, TOTAL 6.8 g/dL (6.4-8.2)
[2024-07-15] MEDS ORDERED: ondansetron HCL 4 MG/2 ML VIAL IV ONE (12:00)
[2024-07-15] MEDS ORDERED: HYDROCODONE/ACETA 7.5/325 TAB PO ONE (12:00)
[2024-07-15] MEDS ORDERED: OXYCODONE/APAP 7.5/325 TAB PO ONE (12:15)
[2024-07-15 12:55] VITALS: BP 151/88
== END 2024-07-15 12:55 | disposition home or self-care (01) ==
LOC: ED 09:41
PROVIDERS: Emergency Medicine
DX: K57.32 Diverticulitis of large intestine without perforation or abscess without bleeding (principal); F31.9 Bipolar disorder, unspecified; F17.200 Nicotine dependence, unspecified, uncomplicated; Z88.0 Allergy status to penicillin; Z88.8 Allergy status to other drugs, medicaments and biological substances; Z88.5 Allergy status to narcotic agent; Z88.1 Allergy status to other antibiotic agents; Z79.01 Long term (current) use of anticoagulants; Z79.84 Long term (current) use of oral hypoglycemic drugs; Z79.899 Other long term (current) drug therapy
CPT/HCPCS: 36415; 74177; 80053; 83690; 85025; 99284-25; J2405; Q9967

== ENCOUNTER 2024-07-23 10:00 | Emergency (ER) | payer OTHER ==
[~2024-07-23] VITALS: Ht 162.6 cm; Wt 122.9 kg
[2024-07-23] MEDS ORDERED: TRULICITY1.5 MG/0.5 SQ (10:16)
[2024-07-23] MEDS ORDERED: TRULICITY0.75 MG/0. SQ (10:16)
[2024-07-23] MEDS ORDERED: SODIUM CHLORIDE 0.9% 1,000 ML IV ONE (10:30)
[2024-07-23] MEDS ORDERED: ondansetron HCL 4 MG/2 ML VIAL IV ONE (10:30)
[2024-07-23] MEDS ORDERED: HYDROmorphone HCL 1 MG/ML SYR IV PRN (10:30)
[2024-07-23 10:31] LABS: BASOPHILS 0.6 % (0-2); EOSINOPHILS 1.4 % (0-6); HEMATOCRIT 45.4 % (35.0-50.0); HEMOGLOBIN 15.5 g/dL (12.0-18.0); LYMPHOCYTES 18.2 % (24-44); MCH 31.8 (27-36); MCHC 34.2 g/dl (30-36); MCV 93.1 fl (81-99); MONOCYTES 3.9 % (0-12); NEUTROPHILS 75.9 % (39-80); PLATELET COUNT 305 K/uL (140-440); RBC 4.88 M/ul (4.3-5.7); RDW 14.4 (10.5-15.0)
[2024-07-23 10:45] LABS: ALBUMIN 3.9 g/dL (3.4-5.0); ALBUMIN/GLOBULIN RATIO 1.11 (1.1-2.4); ANION GAP 14.3 (7-21); BILIRUBIN, TOTAL 0.4 mg/dL (0.2-1.0); BUN/CREATININE RATIO 15.45 (6.0-28.6); CREATININE, SERUM 1.1 mg/dL (0.55-1.02); POTASSIUM 4.3 mmol/L (3.5-5.1); PROTEIN, TOTAL 7.4 g/dL (6.4-8.2)
[2024-07-23] MEDS ORDERED: HYDROmorphone HCL 1 MG/ML SYR IM ONE (11:15)
[2024-07-23] MEDS ORDERED: HYDROmorphone HCL 1 MG/ML SYR IV ONE ×2 (11:15→13:45)
[2024-07-23 11:25] LABS: BILIRUBIN, URINE NEGATIVE (negative); BLOOD/HGB, URINE NEGATIVE (Negative); KETONE, URINE NEGATIVE (Negative); LEUK ESTERASE, URINE NEGATIVE (negative); NITRITE, URINE NEGATIVE (negative); PH, URINE 5.5 (5-7)
[2024-07-23 11:33] LABS: BACTERIA, URINE 1+ /hpf (negative); CASTS, URINE NONE SEEN \\lpf; COLLECTION TYPE, URINE CLEAN CATCH; CRYSTALS, URINE NONE SEEN (0-1+); EPITHELIAL CELLS, URINE SQUAMOUS 2+ /lpf (0-1+); RED BLOOD CELLS, URINE 0-1 /hpf (0-5); REFLEX CULTURE, URINE No (No)
[2024-07-23] MEDS ORDERED: CIPRO500 MG PO (13:37)
[2024-07-23] MEDS ORDERED: METRONIDAZOLE500 MG PO (13:37)
[2024-07-23 13:44] VITALS: BP 147/78
[2024-07-23] MEDS ORDERED: CIPROFLOXACIN/DEXTROSE 400 MG/200 ML PIGGYBACK IV ONE (13:45)
[2024-07-23] MEDS ORDERED: metroNIDAZOLE 250 MG TAB PO ONE (13:45)
== END 2024-07-23 14:57 | disposition home or self-care (01) ==
LOC: ED 10:00
PROVIDERS: Emergency Medicine
DX: K57.32 Diverticulitis of large intestine without perforation or abscess without bleeding (principal); F31.9 Bipolar disorder, unspecified; F17.200 Nicotine dependence, unspecified, uncomplicated; Z88.0 Allergy status to penicillin; Z88.5 Allergy status to narcotic agent; Z88.1 Allergy status to other antibiotic agents; Z88.8 Allergy status to other drugs, medicaments and biological substances; Z79.899 Other long term (current) drug therapy
CPT/HCPCS: 36415; 71045; 74177; 80053; 81001; 83690; 85025; 96361; 96375; 96376; 99284-25; J0744; J1171; J2405; J7030; Q9967

== ENCOUNTER 2024-08-10 09:38 | Emergency (ER) | payer OTHER ==
[~2024-08-10] VITALS: Ht 162.6 cm; Wt 122.5 kg
[~2024-08-10 09:38] MED LIST changes: +TRULICITY0.75 MG/0. SQ; +TRULICITY1.5 MG/0.5 SQ
[2024-08-10] MEDS ORDERED: GABAPENTIN 300 MG CAP PO ONE (10:30)
[2024-08-10] MEDS ORDERED: SUMAtriptan succinate 6 MG/0.5 ML VIAL SUB-Q ONE (10:30)
[2024-08-10] MEDS ORDERED: FLUCONAZOLE 200 MG TAB PO ONE (10:45)
[2024-08-10] MEDS ORDERED: FLUCONAZOLE 150 MG TAB PO ONE (10:45)
[2024-08-10] MEDS ORDERED: GABAPENTIN ER300 MG PO (11:11)
[2024-08-10 11:20] VITALS: BP 157/89
== END 2024-08-10 11:23 | disposition home or self-care (01) ==
LOC: ED 09:38
DX: R51.9 Headache, unspecified (principal); F43.10 Post-traumatic stress disorder, unspecified; F17.200 Nicotine dependence, unspecified, uncomplicated; Z79.84 Long term (current) use of oral hypoglycemic drugs; Z79.899 Other long term (current) drug therapy; Z88.0 Allergy status to penicillin; Z88.1 Allergy status to other antibiotic agents; Z88.5 Allergy status to narcotic agent; Z88.8 Allergy status to other drugs, medicaments and biological substances
CPT/HCPCS: 81001; 96372; 99284; A9270; J3030

== ENCOUNTER 2024-08-17 13:30 | Emergency (ER) | payer OTHER ==
[~2024-08-17] VITALS: Ht 162.6 cm; Wt 126.1 kg
[~2024-08-17 13:30] MED LIST changes: +GABAPENTIN ER300 MG PO
[2024-08-17 14:33] LABS: BILIRUBIN, URINE NEGATIVE (negative); BLOOD/HGB, URINE NEGATIVE (Negative); KETONE, URINE NEGATIVE (Negative); LEUK ESTERASE, URINE NEGATIVE (negative); NITRITE, URINE NEGATIVE (negative)
[2024-08-17 15:15] LABS: CRYSTALS, URINE NONE SEEN (0-1+); RED BLOOD CELLS, URINE 0-1 /hpf (0-5); WHITE BLOOD CELLS, URINE 0-1 /HPF (0-5)
[2024-08-17 15:16] LABS: BACTERIA, URINE NONE SEEN /hpf (negative); CASTS, URINE NONE SEEN \\lpf; COLLECTION TYPE, URINE CLEAN CATCH; REFLEX CULTURE, URINE No (No)
[2024-08-17] MEDS ORDERED: PROMETHAZINE HCL 50 MG/ML SDV IM ONE ×2 (15:45)
[2024-08-17] MEDS ORDERED: HYDROmorphone HCL 1 MG/ML SYR IV PRN (15:45)
[2024-08-17] MEDS ORDERED: ondansetron HCL 4 MG/2 ML VIAL IV ONE (15:45)
[2024-08-17] MEDS ORDERED: SODIUM CHLORIDE 0.9% 1,000 ML IV ONE (15:45)
[2024-08-17 15:50] LABS: BASOPHILS 1.2 % (0-2); EOSINOPHILS 3.5 % (0-6); HEMATOCRIT 41.1 % (35.0-50.0); HEMOGLOBIN 14.2 g/dL (12.0-18.0); LYMPHOCYTES 22.7 % (24-44); MCH 31.5 (27-36); MCHC 34.4 g/dl (30-36); MCV 91.6 fl (81-99); MONOCYTES 5.9 % (0-12); NEUTROPHILS 66.7 % (39-80); PLATELET COUNT 284 K/uL (140-440); RBC 4.49 M/ul (4.3-5.7); RDW 13.8 (10.5-15.0)
[2024-08-17 16:05] LABS: ALBUMIN 3.6 g/dL (3.4-5.0); ALBUMIN/GLOBULIN RATIO 1.13 (1.1-2.4); ANION GAP 10.5 (7-21); BILIRUBIN, TOTAL 0.2 mg/dL (0.2-1.0); BUN/CREATININE RATIO 17.52 (6.0-28.6); CALCIUM 9.6 mg/dL (8.5-10.1); CREATININE, SERUM 0.97 mg/dL (0.55-1.02); POTASSIUM 4.5 mmol/L (3.5-5.1); PROTEIN, TOTAL 6.8 g/dL (6.4-8.2)
[2024-08-17 18:13] VITALS: BP 167/81
== END 2024-08-17 18:13 | disposition home or self-care (01) ==
LOC: ED 13:30
PROVIDERS: Emergency Medicine
DX: R10.32 Left lower quadrant pain (principal); F43.10 Post-traumatic stress disorder, unspecified; F17.200 Nicotine dependence, unspecified, uncomplicated; Z79.84 Long term (current) use of oral hypoglycemic drugs; Z79.899 Other long term (current) drug therapy; Z88.0 Allergy status to penicillin; Z88.1 Allergy status to other antibiotic agents; Z88.5 Allergy status to narcotic agent; Z88.8 Allergy status to other drugs, medicaments and biological substances
CPT/HCPCS: 36415; 74177; 80053; 81001; 83690; 85025; 96375; 96376; 99284-25; J1171; J2405; J2550; J7030; Q9967

== ENCOUNTER 2024-08-19 08:51 | Emergency (ER) | payer OTHER ==
[~2024-08-19] VITALS: Ht 162.6 cm; Wt 124.2 kg
[2024-08-19] MEDS ORDERED: KETOROLAC TROMETHAMINE 15 MG/ML VIAL IM ONE (09:15)
[2024-08-19] MEDS ORDERED: HYDROCODONE/APAP 10/325 1 TAB PO ONE (09:15)
[2024-08-19] MEDS ORDERED: diphenhydrAMINE HCL 50 MG/ML VIAL IM ONE (09:15)
[2024-08-19] MEDS ORDERED: ONDANSETRON 4 MG TAB ODT SL ONE (09:15)
[2024-08-19] MEDS ORDERED: LOPERAMIDE HCL 2 MG CAP PO ONE (09:15)
[2024-08-19] MEDS ORDERED: IMODIUM A-D2 M2 PO (09:22)
[2024-08-19 10:11] VITALS: BP 115/78
== END 2024-08-19 10:14 | disposition home or self-care (01) ==
LOC: ED 08:51
DX: K57.90 Diverticulosis of intestine, part unspecified, without perforation or abscess without bleeding (principal); F17.200 Nicotine dependence, unspecified, uncomplicated; Z79.2 Long term (current) use of antibiotics; Z79.891 Long term (current) use of opiate analgesic; Z88.0 Allergy status to penicillin; Z88.1 Allergy status to other antibiotic agents; Z88.5 Allergy status to narcotic agent; Z88.8 Allergy status to other drugs, medicaments and biological substances; Z79.899 Other long term (current) drug therapy
CPT/HCPCS: 96372; 99283; A9270; J1200; J1885

== ENCOUNTER 2024-08-21 13:35 | Emergency (ER) | payer OTHER ==
[~2024-08-21] VITALS: Ht 162.6 cm; Wt 124.9 kg
[~2024-08-21 13:35] MED LIST changes: +IMODIUM A-D2 M2 PO
[2024-08-21 19:57] LABS: BILIRUBIN, URINE NEGATIVE (negative); BLOOD/HGB, URINE NEGATIVE (Negative); KETONE, URINE NEGATIVE (Negative); LEUK ESTERASE, URINE NEGATIVE (negative); NITRITE, URINE POSITIVE (negative); PH, URINE 5.5 (5-7)
[2024-08-21] MEDS ORDERED: diphenhydrAMINE HCL 50 MG/ML VIAL IV ONE (20:00)
[2024-08-21] MEDS ORDERED: droPERidol 5 MG/2 ML VIAL IV ONE (20:00)
[2024-08-21] MEDS ORDERED: KETOROLAC TROMETHAMINE 30 MG/ML VIAL IV ONE (20:00)
[2024-08-21 20:03] LABS: BACTERIA, URINE 3+ /hpf (negative); CASTS, URINE NONE SEEN \\lpf; CRYSTALS, URINE NONE SEEN (0-1+); EPITHELIAL CELLS, URINE SQUAMOUS 1+ /lpf (0-1+); RED BLOOD CELLS, URINE 0-1 /hpf (0-5); REFLEX CULTURE, URINE Yes (No)
[2024-08-21 20:04] LABS: COLLECTION TYPE, URINE CLEAN CATCH
[2024-08-21 20:28] LABS: AMPHETAMINES, URINE NEGATIVE (NEGATIVE); BARBITURATES, URINE NEGATIVE (NEGATIVE); BENZODIAZEPINE, URINE NEGATIVE (NEGATIVE); BUPRENORPHINE, URINE NEGATIVE (NEGATIVE); CANNABINOID, URINE NEGATIVE (NEGATIVE); COCAINE, URINE NEGATIVE (NEGATIVE); ECSTASY, URINE NEGATIVE (NEGATIVE); FENTANYL, URINE NEGATIVE (NEGATIVE); METHADONE, URINE NEGATIVE (NEGATIVE); OPIATES, URINE POSITIVE (NEGATIVE); OXYCODONE, URINE NEGATIVE (NEGATIVE); PHENCYCLIDINE, URINE NEGATIVE (NEGATIVE)
[2024-08-21 20:32] LABS: EOSINOPHILS 4.7 % (0-6); HEMATOCRIT 41.6 % (35.0-50.0); HEMOGLOBIN 14.4 g/dL (12.0-18.0); LYMPHOCYTES 27.8 % (24-44); MCH 31.7 (27-36); MCHC 34.7 g/dl (30-36); MCV 91.4 fl (81-99); MONOCYTES 5.2 % (0-12); NEUTROPHILS 61.3 % (39-80); PLATELET COUNT 277 K/uL (140-440); RBC 4.56 M/ul (4.3-5.7); RDW 14.3 (10.5-15.0)
[2024-08-21 20:46] LABS: ALBUMIN 3.8 g/dL (3.4-5.0); ALBUMIN/GLOBULIN RATIO 1.15 (1.1-2.4); ANION GAP 14.1 (7-21); BILIRUBIN, TOTAL 0.3 mg/dL (0.2-1.0); BUN/CREATININE RATIO 14.58 (6.0-28.6); CALCIUM 9.6 mg/dL (8.5-10.1); CREATININE, SERUM 0.96 mg/dL (0.55-1.02); POTASSIUM 4.1 mmol/L (3.5-5.1); PROTEIN, TOTAL 7.1 g/dL (6.4-8.2)
[2024-08-21] MEDS ORDERED: metroNIDAZOLE 250 MG TAB PO ONE (21:30)
[2024-08-21] MEDS ORDERED: CIPROFLOXACIN 500 MG TAB PO ONE (21:30)
[2024-08-21] MEDS ORDERED: HYDROCODONE BIT/ACETAMINOPHEN 5/325 MG 1 TAB HOME.PACK PO ONE (21:45)
[2024-08-21] MEDS ORDERED: HYDROCODONE/ACETA 5/325 TAB PO ONE (21:45)
[2024-08-21 21:50] VITALS: BP 150/72
== END 2024-08-21 21:50 | disposition home or self-care (01) ==
LOC: ED 13:35
PROVIDERS: Internal Medicine
DX: R10.32 Left lower quadrant pain (principal); G89.29 Other chronic pain; F43.10 Post-traumatic stress disorder, unspecified; F17.200 Nicotine dependence, unspecified, uncomplicated; Z79.899 Other long term (current) drug therapy; Z79.84 Long term (current) use of oral hypoglycemic drugs; Z88.0 Allergy status to penicillin; Z88.5 Allergy status to narcotic agent; Z88.8 Allergy status to other drugs, medicaments and biological substances
CPT/HCPCS: 36415; 80053; 80307; 81001; 85025; 87077; 87088; 87186; 96374; 96375; 99284-25; A9270; J1200; J1790; J1885

== ENCOUNTER 2024-08-26 10:28 | Emergency (ER) | payer OTHER ==
[~2024-08-26] VITALS: Ht 162.6 cm; Wt 124.9 kg
[2024-08-26] MEDS ORDERED: OXYCODONE/APAP 7.5/325 TAB PO ONE (11:00)
[2024-08-26] MEDS ORDERED: PERCOCET 7.5-31 EACH PO (11:29)
[2024-08-26 11:40] VITALS: BP 137/93
== END 2024-08-26 11:40 | disposition home or self-care (01) ==
LOC: ED 10:28
DX: G89.29 Other chronic pain (principal); Z76.0 Encounter for issue of repeat prescription; F17.200 Nicotine dependence, unspecified, uncomplicated; Z88.0 Allergy status to penicillin; Z88.8 Allergy status to other drugs, medicaments and biological substances; Z88.5 Allergy status to narcotic agent; Z88.1 Allergy status to other antibiotic agents
CPT/HCPCS: 99283

== ENCOUNTER 2024-09-05 10:44 | Emergency (ER) | payer OTHER ==
[~2024-09-05] VITALS: Ht 162.6 cm; Wt 124.9 kg
[2024-09-05 11:44] LABS: EOSINOPHILS 1.9 % (0-6); HEMATOCRIT 40.1 % (35.0-50.0); LYMPHOCYTES 23.8 % (24-44); MCH 31.6 (27-36); MCV 90.4 fl (81-99); MONOCYTES 4.3 % (0-12); PLATELET COUNT 247 K/uL (140-440); RBC 4.44 M/ul (4.3-5.7)
[2024-09-05] MEDS ORDERED: ondansetron HCL 4 MG TAB PO ONE (11:45)
[2024-09-05] MEDS ORDERED: HYDROmorphone HCL 1 MG/ML SYR IV PRN (11:45)
[2024-09-05] MEDS ORDERED: SODIUM CHLORIDE 0.9% 1,000 ML IV ONE (11:45)
[2024-09-05 11:59] LABS: ALBUMIN 3.4 g/dL (3.4-5.0); ALBUMIN/GLOBULIN RATIO 1.06 (1.1-2.4); ANION GAP 8.2 (7-21); BILIRUBIN, TOTAL 0.2 mg/dL (0.2-1.0); BUN/CREATININE RATIO 18.36 (6.0-28.6); CALCIUM 9.4 mg/dL (8.5-10.1); CREATININE, SERUM 0.98 mg/dL (0.55-1.02); POTASSIUM 4.2 mmol/L (3.5-5.1); PROTEIN, TOTAL 6.6 g/dL (6.4-8.2)
[2024-09-05] MEDS ORDERED: HYDROmorphone HCL 1 MG/ML SYR IV ONE (12:45)
[2024-09-05 13:09] LABS: BILIRUBIN, URINE NEGATIVE (negative); BLOOD/HGB, URINE NEGATIVE (Negative); KETONE, URINE NEGATIVE (Negative); LEUK ESTERASE, URINE NEGATIVE (negative); NITRITE, URINE POSITIVE (negative); PH, URINE 5.5 (5-7)
[2024-09-05 13:18] LABS: BACTERIA, URINE 4+ /hpf (negative); CASTS, URINE NONE SEEN \\lpf; CRYSTALS, URINE NONE SEEN (0-1+); EPITHELIAL CELLS, URINE SQUAMOUS 3+ /lpf (0-1+); RED BLOOD CELLS, URINE 0-1 /hpf (0-5)
[2024-09-05 13:19] LABS: COLLECTION TYPE, URINE CLEAN CATCH; REFLEX CULTURE, URINE No (No)
[2024-09-05] MEDS ORDERED: METRONIDAZOLE500 MG PO (13:31)
[2024-09-05] MEDS ORDERED: CIPRO500 MG PO (13:31)
[2024-09-05 13:42] VITALS: BP 146/64
[2024-09-05] MEDS ORDERED: HYDROCODONE/APAP 10/325 1 TAB PO ONE (13:45)
== END 2024-09-05 13:42 | disposition home or self-care (01) ==
LOC: ED 10:44
PROVIDERS: Emergency Medicine
DX: K57.32 Diverticulitis of large intestine without perforation or abscess without bleeding (principal); F25.9 Schizoaffective disorder, unspecified; F17.200 Nicotine dependence, unspecified, uncomplicated; Z88.0 Allergy status to penicillin; Z88.5 Allergy status to narcotic agent; Z88.1 Allergy status to other antibiotic agents; Z88.8 Allergy status to other drugs, medicaments and biological substances; Z79.899 Other long term (current) drug therapy; Z79.84 Long term (current) use of oral hypoglycemic drugs
CPT/HCPCS: 36415; 74177; 80053; 81001; 83690; 85025; 96376; 99284-25; A9270; J1171; J7030

== ENCOUNTER 2024-09-07 09:19 | Emergency (ER) | payer OTHER ==
[~2024-09-07] VITALS: Ht 162.6 cm; Wt 128.1 kg
[2024-09-07] MEDS ORDERED: PROMETHAZINE HCL 50 MG/ML SDV IM ONE (09:45)
[2024-09-07] MEDS ORDERED: HYDROmorphone HCL 2 MG/ML VIAL IM ONE (09:45)
[2024-09-07 10:29] VITALS: BP 154/91
[2024-09-08] MEDS ORDERED: GLIMEPIRIDE1 MG (12:15)
== END 2024-09-07 10:29 | disposition home or self-care (01) ==
LOC: ED 09:19
DX: K57.92 Diverticulitis of intestine, part unspecified, without perforation or abscess without bleeding (principal); F17.200 Nicotine dependence, unspecified, uncomplicated; Z88.0 Allergy status to penicillin; Z88.5 Allergy status to narcotic agent; Z88.1 Allergy status to other antibiotic agents; Z88.6 Allergy status to analgesic agent; Z88.8 Allergy status to other drugs, medicaments and biological substances; Z79.85 Long-term (current) use of injectable non-insulin antidiabetic drugs; Z79.84 Long term (current) use of oral hypoglycemic drugs; Z79.899 Other long term (current) drug therapy
CPT/HCPCS: 96372; 99283; J1171; J2550

== ENCOUNTER 2024-09-08 11:26 | Emergency (ER) | payer OTHER ==
[~2024-09-08] VITALS: Ht 162.6 cm; Wt 124.0 kg
[2024-09-08] MEDS ORDERED: GLIMEPIRIDE1 MG (12:15)
[2024-09-08] MEDS ORDERED: HYDROmorphone HCL 1 MG/ML SYR IV PRN ×2 (13:30→15:00)
[2024-09-08] MEDS ORDERED: PROMETHAZINE HCL 50 MG/ML SDV IM ONE (13:30)
[2024-09-08] MEDS ORDERED: CIPROFLOXACIN/DEXTROSE 400 MG/200 ML PIGGYBACK IV ONE (13:30)
[2024-09-08] MEDS ORDERED: SODIUM CHLORIDE 0.9% 1,000 ML IV ONE (13:30)
[2024-09-08] MEDS ORDERED: metroNIDAZOLE/SODIUM CHLORIDE 500 MG/100 ML PIGGYBACK IV ONE (13:30)
[2024-09-08 13:47] LABS: BASOPHILS 0.8 % (0-2); EOSINOPHILS 1.2 % (0-6); HEMATOCRIT 42.4 % (35.0-50.0); HEMOGLOBIN 14.6 g/dL (12.0-18.0); LYMPHOCYTES 27.1 % (24-44); MCHC 34.4 g/dl (30-36); MCV 90.1 fl (81-99); MONOCYTES 5.6 % (0-12); NEUTROPHILS 65.3 % (39-80); PLATELET COUNT 249 K/uL (140-440); RBC 4.71 M/ul (4.3-5.7); RDW 14.3 (10.5-15.0)
[2024-09-08 14:02] LABS: ALBUMIN 3.6 g/dL (3.4-5.0); ALBUMIN/GLOBULIN RATIO 1.03 (1.1-2.4); ANION GAP 14.1 (7-21); BILIRUBIN, TOTAL 0.3 mg/dL (0.2-1.0); BUN/CREATININE RATIO 14.44 (6.0-28.6); CALCIUM 9.7 mg/dL (8.5-10.1); CREATININE, SERUM 0.9 mg/dL (0.55-1.02); POTASSIUM 4.1 mmol/L (3.5-5.1); PROTEIN, TOTAL 7.1 g/dL (6.4-8.2)
[2024-09-08 16:00] VITALS: BP 180/95
== END 2024-09-08 16:23 | disposition home or self-care (01) ==
LOC: ED 11:26
PROVIDERS: Emergency Medicine
DX: K57.92 Diverticulitis of intestine, part unspecified, without perforation or abscess without bleeding (principal); F17.200 Nicotine dependence, unspecified, uncomplicated; Z88.0 Allergy status to penicillin; Z88.5 Allergy status to narcotic agent; Z88.8 Allergy status to other drugs, medicaments and biological substances; Z88.1 Allergy status to other antibiotic agents; Z79.899 Other long term (current) drug therapy; Z79.84 Long term (current) use of oral hypoglycemic drugs
CPT/HCPCS: 36415; 80053; 85025; 96365; 96367; 96375; 96376; 99284-25; J0744; J1171; J2550; J7030

== ENCOUNTER 2024-09-10 07:55 | Emergency (ER) | payer OTHER ==
[~2024-09-10] VITALS: Ht 162.6 cm; Wt 122.2 kg
[~2024-09-10 07:55] MED LIST changes: +GLIMEPIRIDE1 MG
[2024-09-10] MEDS ORDERED: MORPHINE SULFATE 4 MG/ML VIAL IV ONE (09:00)
[2024-09-10] MEDS ORDERED: ondansetron HCL 4 MG/2 ML VIAL IV ONE (09:00)
[2024-09-10] MEDS ORDERED: SODIUM CHLORIDE 0.9% 1,000 ML IV ONE (09:00)
[2024-09-10 09:20] LABS: BASOPHILS 1.1 % (0-2); EOSINOPHILS 2.1 % (0-6); HEMATOCRIT 39.2 % (35.0-50.0); HEMOGLOBIN 13.7 g/dL (12.0-18.0); LYMPHOCYTES 23.8 % (24-44); MCH 31.5 (27-36); MCHC 34.9 g/dl (30-36); MCV 90.4 fl (81-99); MONOCYTES 5.2 % (0-12); NEUTROPHILS 67.8 % (39-80); PLATELET COUNT 241 K/uL (140-440); RBC 4.33 M/ul (4.3-5.7); RDW 14.4 (10.5-15.0)
[2024-09-10 09:31] LABS: ALBUMIN 3.5 g/dL (3.4-5.0); ALBUMIN/GLOBULIN RATIO 1.06 (1.1-2.4); ANION GAP 11.1 (7-21); BILIRUBIN, TOTAL 0.3 mg/dL (0.2-1.0); BUN/CREATININE RATIO 9.18 (6.0-28.6); CALCIUM 9.3 mg/dL (8.5-10.1); CREATININE, SERUM 0.98 mg/dL (0.55-1.02); POTASSIUM 4.1 mmol/L (3.5-5.1); PROTEIN, TOTAL 6.8 g/dL (6.4-8.2)
[2024-09-10 10:57] LABS: BILIRUBIN, URINE NEGATIVE (negative); BLOOD/HGB, URINE NEGATIVE (Negative); KETONE, URINE NEGATIVE (Negative); LEUK ESTERASE, URINE NEGATIVE (negative); NITRITE, URINE POSITIVE (negative); PH, URINE 5.5 (5-7)
[2024-09-10 11:03] LABS: EPITHELIAL CELLS, URINE SQUAMOUS 2+ /lpf (0-1+); RED BLOOD CELLS, URINE 0-1 /hpf (0-5); REFLEX CULTURE, URINE No (No); WHITE BLOOD CELLS, URINE 0-1 /HPF (0-5)
[2024-09-10 11:05] LABS: BACTERIA, URINE 4+ /hpf (negative)
[2024-09-10] MEDS ORDERED: OXYCODONE HCL 5 MG TAB PO ONE (11:15)
[2024-09-10 11:33] VITALS: BP 139/74
== END 2024-09-10 11:33 | disposition home or self-care (01) ==
LOC: ED 07:55
PROVIDERS: Emergency Medicine
DX: R10.32 Left lower quadrant pain (principal); G89.29 Other chronic pain; F25.9 Schizoaffective disorder, unspecified; F17.200 Nicotine dependence, unspecified, uncomplicated; Z88.0 Allergy status to penicillin; Z88.5 Allergy status to narcotic agent; Z88.1 Allergy status to other antibiotic agents; Z79.899 Other long term (current) drug therapy; Z79.84 Long term (current) use of oral hypoglycemic drugs
CPT/HCPCS: 36415; 74177; 80053; 81001; 83605; 83690; 85025; 96375; 99284-25; A9270; J2270; J2405; J7030; Q9967

== ENCOUNTER 2024-09-19 08:39 | Emergency (ER) | payer OTHER ==
[~2024-09-19] VITALS: Ht 162.6 cm; Wt 122.4 kg
[2024-09-19] MEDS ORDERED: ondansetron HCL 4 MG/2 ML VIAL IV ONE (09:15)
[2024-09-19] MEDS ORDERED: MORPHINE SULFATE 4 MG/ML VIAL IV ONE (09:15)
[2024-09-19] MEDS ORDERED: ONDANSETRON 4 MG TAB ODT SL ONE (09:30)
[2024-09-19] MEDS ORDERED: MORPHINE SULFATE 10 MG/ML VIAL SUB-Q ONE (09:30)
[2024-09-19 09:40] LABS: BASOPHILS 0.8 % (0-2); EOSINOPHILS 1.8 % (0-6); HEMATOCRIT 41.5 % (35.0-50.0); HEMOGLOBIN 14.3 g/dL (12.0-18.0); LYMPHOCYTES 21.4 % (24-44); MCH 31.3 (27-36); MCHC 34.4 g/dl (30-36); MCV 90.8 fl (81-99); MONOCYTES 3.9 % (0-12); NEUTROPHILS 72.1 % (39-80); PLATELET COUNT 257 K/uL (140-440); RBC 4.57 M/ul (4.3-5.7); RDW 14.2 (10.5-15.0)
[2024-09-19 09:56] LABS: ALBUMIN 3.5 g/dL (3.4-5.0); ALBUMIN/GLOBULIN RATIO 1.03 (1.1-2.4); ANION GAP 12.2 (7-21); BILIRUBIN, TOTAL 0.3 mg/dL (0.2-1.0); BUN/CREATININE RATIO 11.6 (6.0-28.6); CALCIUM 9.4 mg/dL (8.5-10.1); CREATININE, SERUM 1.12 mg/dL (0.55-1.02); POTASSIUM 4.2 mmol/L (3.5-5.1); PROTEIN, TOTAL 6.9 g/dL (6.4-8.2)
[2024-09-19 12:25] VITALS: BP 131/77
== END 2024-09-19 12:25 | disposition home or self-care (01) ==
LOC: ED 08:39
PROVIDERS: Emergency Medicine
DX: R10.31 Right lower quadrant pain (principal); G89.29 Other chronic pain; F17.200 Nicotine dependence, unspecified, uncomplicated; Z88.0 Allergy status to penicillin; Z88.1 Allergy status to other antibiotic agents; Z88.5 Allergy status to narcotic agent; Z88.8 Allergy status to other drugs, medicaments and biological substances; Z79.899 Other long term (current) drug therapy
CPT/HCPCS: 36415; 80053; 83605; 83690; 85025; 96372; 99284; A9270; J2270

== ENCOUNTER 2024-09-20 09:07 | Emergency (ER) | payer OTHER ==
[~2024-09-20] VITALS: Ht 162.6 cm; Wt 122.4 kg
[2024-09-20] MEDS ORDERED: HYDROmorphone HCL 1 MG/ML SYR IV PRN (09:45)
[2024-09-20] MEDS ORDERED: SODIUM CHLORIDE 0.9% 1,000 ML IV ONE (09:45)
[2024-09-20] MEDS ORDERED: PROMETHAZINE HCL 50 MG/ML SDV IM ONE (10:00)
[2024-09-20 10:57] LABS: BASOPHILS 1.2 % (0-2); EOSINOPHILS 2.2 % (0-6); HEMATOCRIT 39.5 % (35.0-50.0); HEMOGLOBIN 13.8 g/dL (12.0-18.0); LYMPHOCYTES 23.3 % (24-44); MCH 31.6 (27-36); MCV 90.3 fl (81-99); MONOCYTES 5.2 % (0-12); NEUTROPHILS 68.1 % (39-80); PLATELET COUNT 254 K/uL (140-440); RBC 4.37 M/ul (4.3-5.7)
[2024-09-20 10:59] LABS: ALBUMIN 3.6 g/dL (3.4-5.0); ALBUMIN/GLOBULIN RATIO 1.13 (1.1-2.4); ANION GAP 9.2 (7-21); BILIRUBIN, TOTAL 0.2 mg/dL (0.2-1.0); BUN/CREATININE RATIO 13.39 (6.0-28.6); CALCIUM 9.5 mg/dL (8.5-10.1); CREATININE, SERUM 1.12 mg/dL (0.55-1.02); POTASSIUM 4.2 mmol/L (3.5-5.1); PROTEIN, TOTAL 6.8 g/dL (6.4-8.2)
[2024-09-20 12:04] LABS: BILIRUBIN, URINE NEGATIVE (negative); BLOOD/HGB, URINE NEGATIVE (Negative); KETONE, URINE NEGATIVE (Negative); LEUK ESTERASE, URINE NEGATIVE (negative); NITRITE, URINE POSITIVE (negative)
[2024-09-20 12:24] LABS: BACTERIA, URINE 2+ /hpf (negative); CASTS, URINE NONE SEEN \\lpf; COLLECTION TYPE, URINE CLEAN CATCH; CRYSTALS, URINE NONE SEEN (0-1+); EPITHELIAL CELLS, URINE SQUAMOUS 1+ /lpf (0-1+); RED BLOOD CELLS, URINE 0-1 /hpf (0-5); REFLEX CULTURE, URINE Yes (No)
[2024-09-20] MEDS ORDERED: OXYCODONE/APAP 5/325 TAB PO ONE (12:30)
[2024-09-20 12:40] VITALS: BP 159/93
== END 2024-09-20 12:40 | disposition home or self-care (01) ==
LOC: ED 09:07
PROVIDERS: Emergency Medicine
DX: R10.32 Left lower quadrant pain (principal); R10.31 Right lower quadrant pain; F17.200 Nicotine dependence, unspecified, uncomplicated
CPT/HCPCS: 36415; 51701; 74177; 80053; 81001; 83690; 85025; 87077; 87088; 87186; 99284-25; J1171; J2550; J7030; Q9967

== ENCOUNTER 2024-09-21 13:15 | Emergency (ER) | payer OTHER ==
[~2024-09-21] VITALS: Ht 162.6 cm; Wt 123.4 kg
[2024-09-21] MEDS ORDERED: OXYCODONE/APAP 7.5/325 TAB PO ONE (17:30)
[2024-09-21] MEDS ORDERED: PROMETHAZINE HCL 50 MG/ML SDV IM ONE (17:30)
[2024-09-21 17:45] VITALS: BP 170/91
== END 2024-09-21 17:45 | disposition home or self-care (01) ==
LOC: ED 13:15
DX: R10.9 Unspecified abdominal pain (principal); Z88.0 Allergy status to penicillin; Z88.1 Allergy status to other antibiotic agents; Z88.5 Allergy status to narcotic agent; Z88.2 Allergy status to sulfonamides; Z88.9 Allergy status to unspecified drugs, medicaments and biological substances; F17.200 Nicotine dependence, unspecified, uncomplicated
CPT/HCPCS: 96372; 99283; J2550

== ENCOUNTER 2024-10-04 13:45 | Emergency (ER) | payer OTHER ==
[~2024-10-04] VITALS: Ht 162.6 cm; Wt 123.3 kg
[2024-10-04 15:46] LABS: BASOPHILS 0.8 % (0-2); EOSINOPHILS 1.8 % (0-6); HEMATOCRIT 40.3 % (35.0-50.0); LYMPHOCYTES 21.4 % (24-44); MCH 31.3 (27-36); MCHC 34.6 g/dl (30-36); MCV 90.4 fl (81-99); MONOCYTES 3.9 % (0-12); NEUTROPHILS 72.1 % (39-80); PLATELET COUNT 262 K/uL (140-440); RBC 4.46 M/ul (4.3-5.7); RDW 13.8 (10.5-15.0)
[2024-10-04 16:01] LABS: ALBUMIN 3.6 g/dL (3.4-5.0); ALBUMIN/GLOBULIN RATIO 1.09 (1.1-2.4); ANION GAP 11.4 (7-21); BILIRUBIN, TOTAL 0.2 mg/dL (0.2-1.0); BUN/CREATININE RATIO 16.83 (6.0-28.6); CALCIUM 9.2 mg/dL (8.5-10.1); CREATININE, SERUM 1.01 mg/dL (0.55-1.02); POTASSIUM 4.4 mmol/L (3.5-5.1); PROTEIN, TOTAL 6.9 g/dL (6.4-8.2)
[2024-10-04] MEDS ORDERED: CIPRO500 MG PO (16:21)
[2024-10-04] MEDS ORDERED: METRONIDAZOLE500 MG PO (16:21)
[2024-10-04] MEDS ORDERED: ondansetron HCL 4 MG/2 ML VIAL IV PRN (16:30)
[2024-10-04] MEDS ORDERED: HYDROmorphone HCL 1 MG/ML SYR IV ONE (16:30)
[2024-10-04 16:52] VITALS: BP 152/86
== END 2024-10-04 16:52 | disposition home or self-care (01) ==
LOC: ED 13:45
PROVIDERS: Emergency Medicine
DX: K57.92 Diverticulitis of intestine, part unspecified, without perforation or abscess without bleeding (principal); F17.200 Nicotine dependence, unspecified, uncomplicated; F43.10 Post-traumatic stress disorder, unspecified; Z79.84 Long term (current) use of oral hypoglycemic drugs; Z79.899 Other long term (current) drug therapy; Z88.0 Allergy status to penicillin; Z88.1 Allergy status to other antibiotic agents; Z88.5 Allergy status to narcotic agent; Z88.8 Allergy status to other drugs, medicaments and biological substances
CPT/HCPCS: 36415; 80053; 85025; 96374; 96375; 99284-25; J1171; J2405

== ENCOUNTER 2024-10-05 11:11 | Emergency (ER) | payer OTHER ==
[~2024-10-05] VITALS: Ht 162.6 cm; Wt 123.3 kg
[2024-10-05 11:55] LABS: EOSINOPHILS 1.4 % (0-6); HEMATOCRIT 40.3 % (35.0-50.0); HEMOGLOBIN 14.2 g/dL (12.0-18.0); LYMPHOCYTES 22.3 % (24-44); MCH 31.9 (27-36); MCHC 35.3 g/dl (30-36); MCV 90.3 fl (81-99); MONOCYTES 4.3 % (0-12); PLATELET COUNT 252 K/uL (140-440); RBC 4.46 M/ul (4.3-5.7); RDW 14.2 (10.5-15.0)
[2024-10-05 12:04] LABS: ALBUMIN 3.6 g/dL (3.4-5.0); ALBUMIN/GLOBULIN RATIO 1.09 (1.1-2.4); ANION GAP 13.4 (7-21); BILIRUBIN, TOTAL 0.2 mg/dL (0.2-1.0); BUN/CREATININE RATIO 15.04 (6.0-28.6); CALCIUM 9.5 mg/dL (8.5-10.1); CREATININE, SERUM 1.13 mg/dL (0.55-1.02); POTASSIUM 4.4 mmol/L (3.5-5.1); PROTEIN, TOTAL 6.9 g/dL (6.4-8.2)
[2024-10-05] MEDS ORDERED: HYDROmorphone HCL 1 MG/ML SYR IV ONE (13:30)
[2024-10-05] MEDS ORDERED: ondansetron HCL 4 MG/2 ML VIAL IV PRN (13:45)
[2024-10-05 14:40] VITALS: BP 140/64
== END 2024-10-05 14:40 | disposition home or self-care (01) ==
LOC: ED 11:11
PROVIDERS: Emergency Medicine
DX: K57.32 Diverticulitis of large intestine without perforation or abscess without bleeding (principal); F17.200 Nicotine dependence, unspecified, uncomplicated; F43.10 Post-traumatic stress disorder, unspecified; Z88.1 Allergy status to other antibiotic agents; Z88.0 Allergy status to penicillin; Z88.5 Allergy status to narcotic agent; Z88.8 Allergy status to other drugs, medicaments and biological substances
CPT/HCPCS: 36415; 74177; 80053; 83690; 85025; 96375; 99284-25; J1171; J2405; Q9967

== ENCOUNTER 2024-10-06 10:30 | Emergency (ER) | payer OTHER ==
[~2024-10-06] VITALS: Ht 162.6 cm; Wt 123.3 kg
[2024-10-06] MEDS ORDERED: PROMETHAZINE HCL 50 MG/ML SDV IM ONE (11:00)
[2024-10-06 13:00] VITALS: BP 171/92
== END 2024-10-06 13:10 | disposition home or self-care (01) ==
LOC: ED 10:30
DX: K57.92 Diverticulitis of intestine, part unspecified, without perforation or abscess without bleeding (principal); R10.32 Left lower quadrant pain; F43.10 Post-traumatic stress disorder, unspecified; F17.200 Nicotine dependence, unspecified, uncomplicated; Z88.0 Allergy status to penicillin; Z88.1 Allergy status to other antibiotic agents; Z88.5 Allergy status to narcotic agent; Z88.8 Allergy status to other drugs, medicaments and biological substances; Z79.2 Long term (current) use of antibiotics; Z79.899 Other long term (current) drug therapy
CPT/HCPCS: 96372; 99283; J2550

== ENCOUNTER 2024-10-14 11:14 | Emergency (ER) | payer OTHER ==
[~2024-10-14] VITALS: Ht 162.6 cm; Wt 124.2 kg
[2024-10-14] MEDS ORDERED: SULFASALAZINE500 MG PO (13:47)
[2024-10-14 14:11] LABS: EOSINOPHILS 1.6 % (0-6); HEMOGLOBIN 14.2 g/dL (12.0-18.0); LYMPHOCYTES 22.3 % (24-44); MCH 31.1 (27-36); MCHC 33.8 g/dl (30-36); MCV 91.9 fl (81-99); MONOCYTES 5.8 % (0-12); NEUTROPHILS 69.3 % (39-80); PLATELET COUNT 233 K/uL (140-440); RBC 4.57 M/ul (4.3-5.7); RDW 14.3 (10.5-15.0)
[2024-10-14 14:52] LABS: ALBUMIN 3.5 g/dL (3.4-5.0); ALBUMIN/GLOBULIN RATIO 1.03 (1.1-2.4); ANION GAP 13.1 (7-21); BILIRUBIN, TOTAL 0.2 mg/dL (0.2-1.0); BUN/CREATININE RATIO 15.46 (6.0-28.6); CALCIUM 9.2 mg/dL (8.5-10.1); CREATININE, SERUM 0.97 mg/dL (0.55-1.02); POTASSIUM 4.1 mmol/L (3.5-5.1); PROTEIN, TOTAL 6.9 g/dL (6.4-8.2)
[2024-10-14] MEDS ORDERED: SODIUM CHLORIDE 0.9% 1,000 ML IV PRN (15:15)
[2024-10-14] MEDS ORDERED: HYDROmorphone HCL 1 MG/ML SYR IV ONE (15:15)
[2024-10-14] MEDS ORDERED: ondansetron HCL 4 MG/2 ML VIAL IV ONE (15:15)
[2024-10-14] MEDS ORDERED: HYDROmorphone HCL 1 MG/ML SYR IM ONE (17:00)
[2024-10-14] MEDS ORDERED: ondansetron HCL 4 MG/2 ML VIAL ONE (17:48)
[2024-10-14] MEDS ORDERED: HYDROCODONE/APAP 10/325 1 TAB PO ONE (18:30)
[2024-10-14 18:41] VITALS: BP 145/71
== END 2024-10-14 18:41 | disposition home or self-care (01) ==
LOC: ED 11:14
PROVIDERS: Emergency Medicine
DX: R10.31 Right lower quadrant pain (principal); F43.10 Post-traumatic stress disorder, unspecified; F17.200 Nicotine dependence, unspecified, uncomplicated; Z88.0 Allergy status to penicillin; Z88.1 Allergy status to other antibiotic agents; Z88.5 Allergy status to narcotic agent; Z79.899 Other long term (current) drug therapy
CPT/HCPCS: 36415; 74176; 80053; 81001; 83605; 83690; 85025; 96374; 96375; 99284-25; A9270; J1171; J2405; J7030

== ENCOUNTER 2024-10-16 09:32 | Emergency (ER) | payer OTHER ==
[~2024-10-16] VITALS: Ht 162.6 cm; Wt 123.2 kg
[~2024-10-16 09:32] MED LIST changes: +SULFASALAZINE500 MG PO
[2024-10-16] MEDS ORDERED: METRONIDAZOLE500 MG PO (11:56)
[2024-10-16] MEDS ORDERED: LEVOFLOXACIN750 MG PO (11:56)
[2024-10-16] MEDS ORDERED: HYDROmorphone HCL 1 MG/ML SYR IM ONE (12:00)
[2024-10-16] MEDS ORDERED: ONDANSETRON 4 MG TAB ODT SL ONE (12:00)
[2024-10-16] MEDS ORDERED: BENZONATATE200 MG PO (13:08)
[2024-10-16 13:15] VITALS: BP 154/72
[2024-10-16] MEDS ORDERED: HYDROCODONE/APAP 10/325 1 TAB PO ONE (13:15)
== END 2024-10-16 13:10 | disposition home or self-care (01) ==
LOC: ED 09:32
DX: K57.92 Diverticulitis of intestine, part unspecified, without perforation or abscess without bleeding (principal); F43.10 Post-traumatic stress disorder, unspecified; F17.200 Nicotine dependence, unspecified, uncomplicated; Z79.84 Long term (current) use of oral hypoglycemic drugs; Z79.899 Other long term (current) drug therapy; Z88.0 Allergy status to penicillin; Z88.5 Allergy status to narcotic agent
CPT/HCPCS: 71045; 96372; 99284-25; A9270; J1171

== ENCOUNTER 2024-10-18 09:39 | Emergency (ER) | payer OTHER | END 2024-10-18 10:30 | disposition home or self-care (01) | LOC: ED 09:39 | DX: M54.9 Dorsalgia, unspecified (principal); F43.10 Post-traumatic stress disorder, unspecified; F17.200 Nicotine dependence, unspecified, uncomplicated; Z79.84 Long term (current) use of oral hypoglycemic drugs; Z79.899 Other long term (current) drug therapy; Z88.0 Allergy status to penicillin; Z88.5 Allergy status to narcotic agent; Z88.8 Allergy status to other drugs, medicaments and biological substances ==

== ENCOUNTER 2024-10-19 12:29 | Emergency (ER) | payer OTHER | END 2024-10-19 13:45 | disposition home or self-care (01) | LOC: ED 12:29 | DX: R10.32 Left lower quadrant pain (principal); G89.29 Other chronic pain; F43.10 Post-traumatic stress disorder, unspecified; F17.200 Nicotine dependence, unspecified, uncomplicated; Z79.84 Long term (current) use of oral hypoglycemic drugs; Z79.899 Other long term (current) drug therapy; Z88.0 Allergy status to penicillin; Z88.5 Allergy status to narcotic agent; Z88.8 Allergy status to other drugs, medicaments and biological substances ==

== ENCOUNTER 2024-12-05 08:33 | Emergency (ER) | payer OTHER ==
[~2024-12-05] VITALS: Ht 162.6 cm; Wt 120.0 kg
[~2024-12-05 08:33] MED LIST changes: +BENZONATATE200 MG PO
[2024-12-05] MEDS ORDERED: TRAZODONE HCL150 MG PO (08:44)
[2024-12-05] MEDS ORDERED: CHLORPROMAZINE200 MG PO (08:44)
[2024-12-05] MEDS ORDERED: OXYCODONE/APAP 7.5/325 TAB PO ONE (09:30)
[2024-12-05] MEDS ORDERED: ONDANSETRON 4 MG TAB ODT SL ONE (09:30)
[2024-12-05 09:35] LABS: BASOPHILS 0.4 % (0.1-1.2); EOSINOPHILS 1.8 % (0.7-5.8); LYMPHOCYTES 20.4 % (19.3-51.7); MCH 31.4 PG (25.6-32.2); MCHC 33.8 g/dL (32.2-35.5); MCV 92.8 fL (79.4-94.8); MONOCYTES 4.5 % (4.7-12.5); NEUTROPHILS 72.0 % (34.0-71.1); RBC 4.30 M/uL (3.93-5.22)
[2024-12-05 09:52] LABS: ALT (SGPT) 46.0 U/L (14-59); AST (SGOT) 33.0 U/L (15-37); GLOMERULAR FILTRATION RATE,EST 62.0 mL/min (>60); PROTEIN, TOTAL 6.7 g/dL (6.4-8.2); UREA NITROGEN 13.0 mg/dL (7-18)
[2024-12-05 10:42] VITALS: BP 136/60
[2024-12-05] MEDS ORDERED: METOCLOPRAMIDE HCL 10 MG TAB PO ONE (10:45)
== END 2024-12-05 10:42 | disposition home or self-care (01) ==
LOC: ED 08:33
PROVIDERS: Emergency Medicine
DX: R10.32 Left lower quadrant pain (principal); G89.29 Other chronic pain; F17.200 Nicotine dependence, unspecified, uncomplicated; Z88.0 Allergy status to penicillin; Z88.1 Allergy status to other antibiotic agents; Z88.5 Allergy status to narcotic agent; Z88.8 Allergy status to other drugs, medicaments and biological substances; Z79.899 Other long term (current) drug therapy; Z79.84 Long term (current) use of oral hypoglycemic drugs
CPT/HCPCS: 36415; 80053; 83690; 85025; 99284; A9270

== ENCOUNTER 2024-12-20 08:55 | Emergency (ER) | payer OTHER ==
[~2024-12-20] VITALS: Ht 162.6 cm; Wt 119.9 kg
[~2024-12-20 08:55] MED LIST changes: +CHLORPROMAZINE200 MG PO; +TRAZODONE HCL150 MG PO
[2024-12-20] MEDS ORDERED: LURASIDONE HCL80 MG PO (09:08)
[2024-12-20] MEDS ORDERED: LORazepam 2 MG/ML VIAL IM PRN (09:45)
[2024-12-20] MEDS ORDERED: HALOPERIDOL LACTATE 5 MG/ML VIAL IM PRN (09:45)
[2024-12-20 10:38] LABS: BASOPHILS 0.4 % (0.1-1.2); EOSINOPHILS 0.8 % (0.7-5.8); LYMPHOCYTES 16.7 % (19.3-51.7); MCH 31.2 PG (25.6-32.2); MCHC 34.1 g/dL (32.2-35.5); MCV 91.7 fL (79.4-94.8); MONOCYTES 5.6 % (4.7-12.5); NEUTROPHILS 76.1 % (34.0-71.1); RBC 4.45 M/uL (3.93-5.22)
[2024-12-20 10:49] LABS: INR 1.12 (0.80-1.30); PROTIME 13.7 Sec (11.2-14.2)
[2024-12-20 11:35] LABS: ALT (SGPT) 51.0 U/L (14-59); AST (SGOT) 33.0 U/L (15-37); GLOMERULAR FILTRATION RATE,EST 81.0 mL/min (>60); PROTEIN, TOTAL 7.3 g/dL (6.4-8.2); UREA NITROGEN 13.0 mg/dL (7-18)
[2024-12-20 13:15] VITALS: BP 164/88
== END 2024-12-20 13:15 | disposition home or self-care (01) ==
LOC: ED 08:55
PROVIDERS: Emergency Medicine
DX: F29 Unspecified psychosis not due to a substance or known physiological condition (principal); F43.10 Post-traumatic stress disorder, unspecified; F17.200 Nicotine dependence, unspecified, uncomplicated; Z79.84 Long term (current) use of oral hypoglycemic drugs; Z79.899 Other long term (current) drug therapy; Z88.0 Allergy status to penicillin; Z88.5 Allergy status to narcotic agent; Z88.8 Allergy status to other drugs, medicaments and biological substances
CPT/HCPCS: 36415; 70450; 80053; 80307; 81001; 82140; 85025; 85610; 96372; 99285-25; G0480; J1200; J1630; J2060

== ENCOUNTER 2025-01-01 18:45 | Emergency (ER) | payer OTHER ==
[~2025-01-01] VITALS: Ht 162.6 cm; Wt 121.3 kg
[~2025-01-01 18:45] MED LIST changes: +LURASIDONE HCL80 MG PO
[2025-01-01] MEDS ORDERED: HYDROmorphone HCL 1 MG/ML SYR IV PRN (19:30)
[2025-01-01 20:08] LABS: BASOPHILS 0.5 % (0.1-1.2); EOSINOPHILS 2.1 % (0.7-5.8); LYMPHOCYTES 24.5 % (19.3-51.7); MCH 30.8 PG (25.6-32.2); MCHC 33.7 g/dL (32.2-35.5); MCV 91.5 fL (79.4-94.8); MONOCYTES 4.7 % (4.7-12.5); NEUTROPHILS 67.6 % (34.0-71.1); RBC 4.48 M/uL (3.93-5.22)
[2025-01-01 20:24] LABS: ALT (SGPT) 56.0 U/L (14-59); AST (SGOT) 26.0 U/L (15-37); GLOMERULAR FILTRATION RATE,EST 66.0 mL/min (>60); PROTEIN, TOTAL 6.8 g/dL (6.4-8.2); UREA NITROGEN 15.0 mg/dL (7-18)
[2025-01-01] MEDS ORDERED: LIDOCAINE HCL100 ML MT (21:36)
[2025-01-01 21:38] LABS: BLOOD/HGB, URINE NEGATIVE (Negative); KETONE, URINE NEGATIVE (Negative); LEUK ESTERASE, URINE NEGATIVE (negative); NITRITE, URINE POSITIVE (negative)
[2025-01-01 21:43] LABS: BACTERIA, URINE 3+ /hpf (negative); CASTS, URINE NONE SEEN \\lpf; CRYSTALS, URINE NONE SEEN (0-1+); EPITHELIAL CELLS, URINE SQUAMOUS 1+ /lpf (0-1+); REFLEX CULTURE, URINE Yes (No)
[2025-01-01] MEDS ORDERED: TRIMETHOPRIM/SULFAMETHOXAZOLE 1 EA HOME.PACK PO ONE (22:00)
[2025-01-01 22:12] VITALS: BP 148/62
== END 2025-01-01 22:13 | disposition home or self-care (01) ==
LOC: ED 18:45
PROVIDERS: Family Medicine
DX: R07.0 Pain in throat (principal); R10.32 Left lower quadrant pain; G89.29 Other chronic pain; N39.0 Urinary tract infection, site not specified; F43.10 Post-traumatic stress disorder, unspecified; F17.200 Nicotine dependence, unspecified, uncomplicated; Z88.0 Allergy status to penicillin; Z88.1 Allergy status to other antibiotic agents; Z88.5 Allergy status to narcotic agent; Z79.899 Other long term (current) drug therapy
CPT/HCPCS: 36415; 70360; 80053; 81001; 83690; 85025; 87088; 96374; 96375; 96376; 99284-25; A9270; J1171; J2405

== ENCOUNTER 2025-01-04 11:11 | Emergency (ER) | payer OTHER ==
[~2025-01-04] VITALS: Ht 162.6 cm; Wt 121.3 kg
[~2025-01-04 11:11] MED LIST changes: +LIDOCAINE HCL100 ML MT
[2025-01-04] MEDS ORDERED: SODIUM CHLORIDE 0.9% 1,000 ML IV ONE (11:45)
[2025-01-04] MEDS ORDERED: HYDROmorphone HCL 1 MG/ML SYR IV PRN (11:45)
[2025-01-04 11:55] LABS: BASOPHILS 0.7 % (0.1-1.2); EOSINOPHILS 2.1 % (0.7-5.8); LYMPHOCYTES 23.3 % (19.3-51.7); MCH 30.7 PG (25.6-32.2); MCHC 33.8 g/dL (32.2-35.5); MCV 90.7 fL (79.4-94.8); MONOCYTES 4.3 % (4.7-12.5); NEUTROPHILS 69.0 % (34.0-71.1); RBC 4.53 M/uL (3.93-5.22)
[2025-01-04 12:12] LABS: ALT (SGPT) 73.0 U/L (14-59); AST (SGOT) 57.0 U/L (15-37); GLOMERULAR FILTRATION RATE,EST 76.0 mL/min (>60); PROTEIN, TOTAL 7.0 g/dL (6.4-8.2); UREA NITROGEN 10.0 mg/dL (7-18)
[2025-01-04 13:44] VITALS: BP 141/77
== END 2025-01-04 13:46 | disposition home or self-care (01) ==
LOC: ED 11:11
PROVIDERS: Emergency Medicine
DX: R10.32 Left lower quadrant pain (principal); F43.10 Post-traumatic stress disorder, unspecified; F17.200 Nicotine dependence, unspecified, uncomplicated; Z79.84 Long term (current) use of oral hypoglycemic drugs; Z79.899 Other long term (current) drug therapy; Z88.0 Allergy status to penicillin; Z88.5 Allergy status to narcotic agent; Z88.8 Allergy status to other drugs, medicaments and biological substances
CPT/HCPCS: 36415; 74177; 80053; 85025; 96374; 96375; 96376; 99284-25; J1171; J1790; J7030; Q9967

== ENCOUNTER 2025-01-23 18:38 | Emergency (ER) | payer OTHER ==
[~2025-01-23] VITALS: Ht 162.6 cm; Wt 121.3 kg
[2025-01-23 20:30] VITALS: BP 118/59
== END 2025-01-23 20:31 | disposition home or self-care (01) ==
LOC: ED 18:38
DX: Z43.0 Encounter for attention to tracheostomy (principal); F17.200 Nicotine dependence, unspecified, uncomplicated; Z88.0 Allergy status to penicillin; Z88.5 Allergy status to narcotic agent; Z88.8 Allergy status to other drugs, medicaments and biological substances; Z79.899 Other long term (current) drug therapy
CPT/HCPCS: 31720; 71045; 94799; 99284-25

== ENCOUNTER 2025-01-25 16:03 | Emergency (ER) | payer OTHER ==
[~2025-01-25] VITALS: Ht 162.6 cm; Wt 120.0 kg
[2025-01-25 17:36] VITALS: BP 144/79
== END 2025-01-25 17:38 | disposition home or self-care (01) ==
LOC: ED 16:03
DX: J95.00 Unspecified tracheostomy complication (principal); F17.200 Nicotine dependence, unspecified, uncomplicated; Z88.0 Allergy status to penicillin; Z88.1 Allergy status to other antibiotic agents; Z88.5 Allergy status to narcotic agent; Z79.899 Other long term (current) drug therapy
CPT/HCPCS: 31720; 94799; 99283

== ENCOUNTER 2025-01-29 21:55 | Emergency (ER) | payer OTHER ==
[~2025-01-29] VITALS: Ht 162.6 cm; Wt 125.0 kg
[2025-01-29] MEDS ORDERED: ALBUTEROL/IPRATROPIUM 3 ML NEB INH ONE (22:15)
[2025-01-29] MEDS ORDERED: MORPHINE SULFATE 4 MG/ML VIAL IV ONE (22:15)
[2025-01-29 22:56] LABS: BASOPHILS 0.5 % (0.1-1.2); EOSINOPHILS 2.7 % (0.7-5.8); LYMPHOCYTES 19.2 % (19.3-51.7); MCH 30.5 PG (25.6-32.2); MCHC 32.3 g/dL (32.2-35.5); MCV 94.2 fL (79.4-94.8); MONOCYTES 5.5 % (4.7-12.5); NEUTROPHILS 71.0 % (34.0-71.1); RBC 3.94 M/uL (3.93-5.22)
[2025-01-29 23:23] LABS: ALT (SGPT) 37.0 U/L (14-59); AST (SGOT) 16.0 U/L (15-37); GLOMERULAR FILTRATION RATE,EST 72.0 mL/min (>60); PROTEIN, TOTAL 6.6 g/dL (6.4-8.2); UREA NITROGEN 16.0 mg/dL (7-18)
[2025-01-29] MEDS ORDERED: FUROSEMIDE 40 MG/4 ML VIAL IV ONE (23:30)
[2025-01-29] MEDS ORDERED: MORPHINE SULFATE 30 MG TABCR PO ONE (23:45)
[2025-01-30] MEDS ORDERED: LASIX40 MG PO (00:07)
[2025-01-30] MEDS ORDERED: KLOR-CON M2020 MEQ PO (00:07)
[2025-01-30 00:18] VITALS: BP 170/78
[2025-01-31] MEDS ORDERED: GABAPENTIN300 MG PO (08:58)
== END 2025-01-30 00:21 | disposition home or self-care (01) ==
LOC: ED 21:55
PROVIDERS: Internal Medicine
DX: J95.09 Other tracheostomy complication (principal); G89.29 Other chronic pain; I50.9 Heart failure, unspecified; F17.200 Nicotine dependence, unspecified, uncomplicated; E66.01 Morbid (severe) obesity due to excess calories; Z68.42 Body mass index [BMI] 45.0-49.9, adult; Z87.820 Personal history of traumatic brain injury; Z88.0 Allergy status to penicillin; Z88.5 Allergy status to narcotic agent; Z88.1 Allergy status to other antibiotic agents; Z88.8 Allergy status to other drugs, medicaments and biological substances; Z88.6 Allergy status to analgesic agent; Z79.84 Long term (current) use of oral hypoglycemic drugs; Z79.899 Other long term (current) drug therapy
CPT/HCPCS: 31720; 36415; 71045; 80053; 83880; 84484; 85025; 94640; 94799; 96374; 96375; 99284-25; J1938; J2270; J2919

== ENCOUNTER 2025-01-31 08:45 | Emergency (ER) | payer OTHER ==
[~2025-01-31] VITALS: Ht 162.6 cm; Wt 121.0 kg
[~2025-01-31 08:45] MED LIST changes: +KLOR-CON M2020 MEQ PO; +LASIX40 MG PO
[2025-01-31] MEDS ORDERED: GABAPENTIN300 MG PO (08:58)
[2025-01-31] MEDS ORDERED: LORazepam 2 MG/ML ML PO ONE (09:30)
[2025-01-31] MEDS ORDERED: MORPHINE SULFATE 20 MG/ML SYR PO ONE (09:30)
[2025-01-31] MEDS ORDERED: ALBUTEROL/IPRATROPIUM 3 ML NEB INH ONE (09:30)
[2025-01-31 10:15] VITALS: BP 160/74
== END 2025-01-31 10:17 | disposition home or self-care (01) ==
LOC: ED 08:45
DX: Z43.0 Encounter for attention to tracheostomy (principal); F41.9 Anxiety disorder, unspecified; F17.200 Nicotine dependence, unspecified, uncomplicated; F25.9 Schizoaffective disorder, unspecified; Z88.0 Allergy status to penicillin; Z88.5 Allergy status to narcotic agent; Z88.8 Allergy status to other drugs, medicaments and biological substances; Z79.899 Other long term (current) drug therapy
CPT/HCPCS: 31720; 94640; 94799; 99284

== ENCOUNTER 2025-02-04 09:15 | Emergency (ER) | payer OTHER ==
[~2025-02-04] VITALS: Ht 162.6 cm; Wt 121.0 kg
[~2025-02-04 09:15] MED LIST changes: +GABAPENTIN300 MG PO
[2025-02-04 11:03] VITALS: BP 141/63
== END 2025-02-04 11:03 | disposition home or self-care (01) ==
LOC: ED 09:15
DX: R06.02 Shortness of breath (principal); F32.A Depression, unspecified; F17.200 Nicotine dependence, unspecified, uncomplicated; Z88.0 Allergy status to penicillin; Z88.5 Allergy status to narcotic agent; Z88.6 Allergy status to analgesic agent; Z88.8 Allergy status to other drugs, medicaments and biological substances; Z79.899 Other long term (current) drug therapy
CPT/HCPCS: 71045; 94799; 99284-25

== ENCOUNTER 2025-02-07 09:40 | Emergency (ER) | payer OTHER ==
[~2025-02-07] VITALS: Ht 162.6 cm; Wt 121.0 kg
[2025-02-07] MEDS ORDERED: HYDROMORPHONE HC2 MG PO (10:04)
[2025-02-07] MEDS ORDERED: MORPHINE SULFATE 20 MG/ML SYR PO ONE (10:45)
[2025-02-07] MEDS ORDERED: ATIVAN1 MG PO (11:55)
[2025-02-07 12:15] VITALS: BP 105/77
== END 2025-02-07 12:15 | disposition home or self-care (01) ==
LOC: ED 09:40
DX: J95.09 Other tracheostomy complication (principal); F17.200 Nicotine dependence, unspecified, uncomplicated; Z86.711 Personal history of pulmonary embolism; Z90.49 Acquired absence of other specified parts of digestive tract; Z90.5 Acquired absence of kidney; Z88.0 Allergy status to penicillin; Z88.5 Allergy status to narcotic agent; Z88.1 Allergy status to other antibiotic agents; Z88.6 Allergy status to analgesic agent; Z88.8 Allergy status to other drugs, medicaments and biological substances; Z79.85 Long-term (current) use of injectable non-insulin antidiabetic drugs; Z79.84 Long term (current) use of oral hypoglycemic drugs; Z79.899 Other long term (current) drug therapy
CPT/HCPCS: 94799; 99283

== ENCOUNTER 2025-02-10 09:57 | Emergency (ER) | payer OTHER ==
[~2025-02-10] VITALS: Ht 162.6 cm; Wt 121.0 kg
[~2025-02-10 09:57] MED LIST changes: +HYDROMORPHONE HC2 MG PO
[2025-02-10] MEDS ORDERED: ACETAMINOPHEN 500 MG TAB PO ONE (11:45)
[2025-02-10 11:47] VITALS: BP 166/76
== END 2025-02-10 11:47 | disposition home or self-care (01) ==
LOC: ED 09:57
DX: J95.09 Other tracheostomy complication (principal); F17.200 Nicotine dependence, unspecified, uncomplicated; Z88.0 Allergy status to penicillin; Z88.5 Allergy status to narcotic agent; Z88.8 Allergy status to other drugs, medicaments and biological substances; Z79.899 Other long term (current) drug therapy; Z79.84 Long term (current) use of oral hypoglycemic drugs
CPT/HCPCS: 94799; 99283; A9270

== ENCOUNTER 2025-03-06 14:18 | Emergency (ER) | payer OTHER ==
[~2025-03-06] VITALS: Ht 162.6 cm; Wt 122.0 kg
--- OUTSIDE RECORDS SUMMARY | ~2025-03-06 | XMS | Continuity of Care Document ---
Demographics + + + | Address | [address] [address] | | | [place] [address] | + + + | Preferred Language | Unknown | + + + | Marital Status | | + + + | Scientologist Affiliation | Unknown | + + + | Race | White | + + + | Ethnic Group | Not or | + + + Author + + + | Author | [facility] | + + + | Organization | [facility] | + + + | Address | [address] | | | [place] [address] | + + + | Phone | | + + + Care Team Providers + + + + | Care Procurement Inspector Name | Role | Phone | + [...] [facility] | | | | [facility] | + + + + | 2025-01-01 00:00 | LIDOCAINE 2% VISCOUS | [facility] | | | | [facility] | + + + + | 2025-01-01 00:00 | LIDOCAINE 2% VISCOUS | [facility] | | | | [facility] | + + + + | 2025-01-01 00:00 | LIDOCAINE 2% VISCOUS | [facility] | | | | [facility] | + + + + | 2025-01-01 00:00 | LIDOCAINE 2% VISCOUS | [facility] | | | | [facility] | + + + + | (no date) | Lurasidone HCl | [facility] | | | | [facility] | + + + + | (no date) | Lurasidone HCl | [facility] | | | | [facility] | + + + + | (no date) | Lurasidone HCl | [facility] | | | | [facility] | + + + + | (no date) | Lurasidone HCl | [facility] | | | | [facility] | + + + + | (no date) | Lurasidone HCl | [facility] | | | | [facility] | + + + + | (no date) | LURASIDONE HCL | [facility] | | | | [facility] | + + + + | (no date) | LURASIDONE HCL | [facility] | | | | [facility] | + + + + | (no date) | LURASIDONE HCL | [facility] | | | | [facility] | + + + + | (no date) | LURASIDONE HCL | [facility] | | | | [facility] | + + + + | (no date) | LURASIDONE HCL | [facility] | | | | [facility] | + + + + | 2025-02-07 00:00 | LORAZEPAM | [facility] | | | | [facility] | + + + + | 2025-02-07 00:00 | LORAZEPAM | [facility] | | | | [facility] | + + + + | 2025-02-07 00:00 | LORAZEPAM | [facility] | | | | [facility] | + + + + | (no date) | OXYCODONE | [facility] | | | HCL/ACETAMINOPHEN | [facility] | + + + + | (no date) | OXYCODONE | [facility] | | | HCL/ACETAMINOPHEN | [facility] | + + + + | (no date) | OXYCODONE | [facility] | | | HCL/ACETAMINOPHEN | [facility] | + + + + | (no date) | OXYCODONE | [facility] | | | HCL/ACETAMINOPHEN | [facility] | + + + + | (no date) | OXYCODONE | [facility] | | | HCL/ACETAMINOPHEN | [facility] | + + + + | (no date) | OXYCODONE HCL | [facility] | | | | [facility] | + + + + | (no date) | OXYCODONE HCL | [facility] | | | | [facility] | + + + + | (no date) | OXYCODONE HCL | [facility] | | | | [facility] | + + + + | (no date) | OXYCODONE HCL | [facility] | | | | [facility] | + + + + | (no date) | OXYCODONE HCL | [facility] | | | | [facility] | + + + + | (no date) | METHYLPHENIDATE HCL | [facility] | | | [facility] | + + + + | (no date) | METHYLPHENIDATE HCL | [facility] | | | | [facility] | + + + + | (no date) | METHYLPHENIDATE HCL | [facility] | | | | [facility] | + + + + | (no date) | METHYLPHENIDATE HCL | [facility] | | | | [facility] | + + + + | (no date) | METHYLPHENIDATE HCL | [facility] | | | | [facility] | + + + + | (no date) | Lurasidone HCl | [facility] | | | | [facility] | + + + + | (no date) | Lurasidone HCl | [facility] | | | | [facility] | + + + + | (no date) | Lurasidone HCl | [facility] | | | | [facility] | + + + + | (no date) | Lurasidone HCl | [facility] | | | | [facility] | + + + + | (no date) | Lurasidone HCl | [facility] | | | | [facility] | + + + + | (no date) | DULAGLUTIDE | [facility] | | | | [facility] | + + + + | (no date) | DULAGLUTIDE | [facility] | | | [facility] | + + + + | (no date) | DULAGLUTIDE | [facility] | | | | [facility] | + + + + | (no date) | DULAGLUTIDE | [facility] | | | | [facility] | + + + + | (no date) | DULAGLUTIDE | [facility] | | | | [facility] | + + + + | (no date) | DULAGLUTIDE | [facility] | | | | [facility] | + + + + | (no date) | DULAGLUTIDE | [facility] | | | | [facility] | + + + + | (no date) | DULAGLUTIDE | [facility] | | | | [facility] | + + + + | (no date) | DULAGLUTIDE | [facility] | | | | [facility] | + + + + | (no date) | DULAGLUTIDE | [facility] | | | | [facility] | + + + + | 2025-01-30 00:00 | POTASSIUM CHLORIDE | [facility] | | | | [facility] | + + + + | 2025-01-30 00:00 | POTASSIUM CHLORIDE | [facility] | | | | [facility] | + + + + | 2025-01-30 00:00 | POTASSIUM CHLORIDE | [facility] | | | | [facility] | + + + + | 2025-01-30 00:00 | POTASSIUM CHLORIDE | [facility] | | | | [facility] | + + + + | (no date) | SULFASALAZINE | [facility] | | | | [facility] | + + + + | (no date) | SULFASALAZINE | [facility] | | | | [facility] | + + + + | (no date) | SULFASALAZINE | [facility] | | | | [facility] | + + + + | (no date) | SULFASALAZINE | [facility] | | | | [facility] | + + + + | (no date) | SULFASALAZINE | [facility] | | | | [facility] | + + + + | (no date) | | [facility] | | | SULFAMETHOXAZOLE/TRIMETHOPR | [facility] | | | IM | | + + + + | (no date) | | [facility] | | | SULFAMETHOXAZOLE/TRIMETHOPR | [facility] | | | IM | | + + + + | (no date) | | [facility] | | | SULFAMETHOXAZOLE/TRIMETHOPR | [facility] | | | IM | | + + + + | (no date) | | [facility] | | | SULFAMETHOXAZOLE/TRIMETHOPR | [facility] | | | IM | | + + + + | (no date) | | [facility] | | | SULFAMETHOXAZOLE/TRIMETHOPR | [facility] | | | IM | | + + + + | (no date) | LAMOTRIGINE | [facility] | | | | [facility] | + + + + | (no date) | LAMOTRIGINE | [facility] | | | | [facility] | + + + + | (no date) | LAMOTRIGINE | [facility] | | | | [facility] | + + + + | (no date) | LAMOTRIGINE | [facility] | | | | [facility] | + + + + | (no date) | LAMOTRIGINE | [facility] | | | | [facility] | + + + + | (no date) | GLIMEPIRIDE | [facility] | | | | [facility] | + + + + | (no date) | SKYLAMEPIRIDE | [facility] | | | | [facility] | + + + + | (no date) | GLIMEPIRIDE | [facility] | | | | [facility] | + + + + | (no date) | GLIMEPIRIDE | [facility] | | | | [facility] | + + + + | (no date) | SKYLAMEPIRIDE | [facility] | | | | [facility] | + + + + | 2025-01-30 00:00 | FUROSEMIDE | [facility] | | | | [facility] | + + + + | [...] [facility] | | | | [facility] | + + + + | (no date) | GABAPENTIN | [facility] | | | | [facility] | + + + + | (no date) | LEVOFLOXACIN | [facility] | | | | [facility] | + + + + | (no date) | LEVOFLOXACIN | [facility] | | | | [facility] | + + + + | (no date) | LEVOFLOXACIN | [facility] | | | | [facility] | + + + + | (no date) | LEVOFLOXACIN | [facility] | | | | [facility] | + + + + | (no date) | LEVOFLOXACIN | [facility] | | | | [facility] | + + + + | (no date) | MIRTAZAPINE | [facility] | | | | [facility] | + + + + | (no date) | MIRTAZAPINE | [facility] | | | | [facility] | + + + + | (no date) | MIRTAZAPINE | [facility] | | | | [facility] | + + + + | (no date) | MIRTAZAPINE | [facility] | | | | [facility] | + + + + | (no date) | MIRTAZAPINE | [facility] | | | | [facility] | + + + + | (no date) | DULOXETINE HCL | [facility] | | | | [facility] | + + + + | (no date) | DULOXETINE HCL | [facility] | | | | [facility] | + + + + | (no date) | DULOXETINE HCL | [facility] | | | | [facility] | + + + + | (no date) | DULOXETINE HCL | [facility] | | | | [facility] | + + + + | (no date) | DULOXETINE HCL | [facility] | | | | [facility] | + + + + | (no date) | DULOXETINE HCL | [facility] | | | | [facility] | + + + + | (no date) | DULOXETINE HCL | [facility] | | | | [facility] | + + + + | (no date) | DULOXETINE HCL | [facility] | | | | [facility] | + + + + | (no date) | DULOXETINE HCL | [facility] | | | | [facility] | + + + + | (no date) | DULOXETINE HCL | [facility] | | | | [facility] | + + + + | 2025-01-01 00:00 | | [facility] | | | SULFAMETHOXAZOLE/TRIMETHOPR | [facility] | | | IM DS | | + + + + | 2025-01-01 00:00 | | [facility] | | | SULFAMETHOXAZOLE/TRIMETHOPR | [facility] | | | IM DS | | + + + + | 2025-01-01 00:00 | | [facility] | | | SULFAMETHOXAZOLE/TRIMETHOPR | [facility] | | | IM DS | | + + + + | 2025-01-01 00:00 | | [facility] | | | SULFAMETHOXAZOLE/TRIMETHOPR | [facility] | | | IM DS | | + + + + | 2025-01-01 00:00 | | [facility] | | | SULFAMETHOXAZOLE/TRIMETHOPR | [facility] | | | IM DS | | + + + + | (no date) | ZOLPIDEM TARTRATE | [facility] | | | | [facility] | + + + + | (no date) | ZOLPIDEM TARTRATE | [facility] | | | | [facility] | + + + + | (no date) | ZOLPIDEM TARTRATE | [facility] | | | | [facility] | + + + + | (no date) | ZOLPIDEM TARTRATE | [facility] | | | | [facility] | + + + + | (no date) | ZOLPIDEM TARTRATE | [facility] | | | | [facility] | + + + + | (no date) | TRAZODONE HCL | [facility] | | | | [facility] | + + + + | (no date) | TRAZODONE HCL | [facility] | | | | [facility] | + + + + | (no date) | TRAZODONE HCL | [facility] | | | | [facility] | + + + + | (no date) | TRAZODONE HCL | [facility] | | | | [facility] | + + + + | (no date) | TRAZODONE HCL | [facility] | | | | [facility] | + + + + | (no date) | TRAZODONE HCL | [facility] | | | | [facility] | + + + + | (no date) | TRAZODONE HCL | [facility] | | | | [facility] | + + + + | (no date) | TRAZODONE HCL | [facility] | | | | [facility] | + + + + | (no date) | TRAZODONE HCL | [facility] | | | | [facility] | + + + + | (no date) | TRAZODONE HCL | [facility] | | | | [facility] | + + + + | (no date) | ASENAPINE MALEATE | [facility] | | | | [facility] | + + + + | (no date) | ASENAPINE MALEATE | [facility] | | | | [facility] | + + + + | (no date) | ASENAPINE MALEATE | [facility] | | | | [facility] | + + + + | (no date) | ASENAPINE MALEATE | [facility] | | | | [facility] | + + + + | (no date) | ASENAPINE MALEATE | [facility] | | | | [facility] | + + + + | (no date) | METFORMIN HCL | [facility] | | | | [facility] | + + + + | (no date) | METFORMIN HCL | [facility] | | | | [facility] | + + + + | (no date) | METFORMIN HCL | [facility] | | | | [facility] | + + + + | (no date) | METFORMIN HCL | [facility] | | | | [facility] | + + + + | (no date) | METFORMIN HCL | [facility] | | | | [facility] | + + + + | (no date) | HYDROmorphone HCL | [facility] | | | | [facility] | + + + + | (no date) | HYDROmorphone HCL | [facility] | | | | [facility] | + + + + | (no date) | HYDROmorphone HCL | [facility] | | | | [facility] | + + + + | (no date) | CHLORPROMAZINE HCL | [facility] | | | | [facility] | + + + + | (no date) | CHLORPROMAZINE HCL | [facility] | | | | [facility] | + + + + | (no date) | CHLORPROMAZINE HCL | [facility] | | | | [facility] | + + + + | (no date) | CHLORPROMAZINE HCL | [facility] | | | | [facility] | + + + + | (no date) | CHLORPROMAZINE HCL | [facility] | | | | [facility] | + + + + | (no date) | CHLORPROMAZINE HCL | [facility] | | | | [facility] | + + + + | (no date) | CHLORPROMAZINE HCL | [facility] | | | | [facility] | + + + + | (no date) | CHLORPROMAZINE HCL | [facility] | | | | [facility] | + + + + | (no date) | CHLORPROMAZINE HCL | [facility] | | | | [facility] | + + + + | (no date) | CHLORPROMAZINE HCL | [facility] | | | | [facility] | + + + + | (no date) | PROMETHAZINE HCL | [facility] | | | | [facility] | + + + + | (no date) | PROMETHAZINE HCL | [facility] | | | | [facility] | + + + + | (no date) | PROMETHAZINE HCL | [facility] | | | | [facility] | + + + + | (no date) | PROMETHAZINE HCL | [facility] | | | | [facility] | + + + + | (no date) | PROMETHAZINE HCL | [facility] | | | | [facility] | + + + + Problems + + + + | date | description | facility | + + + + | 2024-12-07 00:00 | Chest pain in adult | [facility] | | | | [facility] | + + + + | 2024-12-07 00:00 | Chest pain in adult | [facility] | | | | [facility] | + + + + | 2024-12-07 00:00 | Chest pain in adult | [facility] | | | | [facility] | + + + + | 2024-12-07 00:00 | Chest pain in adult | [facility] | | | | [facility] | + + + + | 2024-12-07 00:00 | Chest pain in adult | [facility] | | | | [facility] | + + + + | 2024-12-20 00:00 | Psychosis | [facility] | | | | [facility] | + + + + | 2024-12-20 00:00 | Psychosis | [facility] | | | | [facility] | + + + + | 2024-12-20 00:00 | Psychosis | [facility] | | | | [facility] | + + + + | 2024-12-20 00:00 | Psychosis | [facility] | | | | [facility] | + + + + | 2024-12-20 00:00 | Psychosis | [facility] | | | | [facility] | + + + + | 2025-01-01 00:00 | Throat pain | [facility] | | | | [facility] | + + + + | 2025-01-01 00:00 | Throat pain | [facility] | | | | [facility] | + + + + | 2025-01-01 00:00 | Throat pain | [facility] | | | | [facility] | + + + + | 2025-01-01 00:00 | Throat pain | [facility] | | | | [facility] | + + + + | 2025-01-01 00:00 | Throat pain | [facility] | | | | [facility] | + + + + | 2025-01-23 00:00 | Attention to tracheostomy | [facility] | | | | [facility] | + + + + | 2025-01-23 00:00 | Attention to tracheostomy | [facility] | | | | [facility] | + + + + | 2025-01-23 00:00 | Attention to tracheostomy | [facility] | | | | [facility] | + + + + | 2025-01-23 00:00 | Attention to tracheostomy | [facility] | | | | [facility] | + + + + | 2025-01-25 00:00 | Tracheostomy complication | [facility] | | | | [facility] | + + + + | 2025-01-25 00:00 | Tracheostomy complication | [facility] | | | | [facility] | + + + + | 2025-01-25 00:00 | Tracheostomy complication | [facility] | | | | [facility] | + + + + | 2025-01-25 00:00 | Tracheostomy complication | [facility] | | | | [facility] | + + + + | 2025-01-30 00:00 | Chronic pain | [facility] | | | | [facility] | + + + + | 2025-01-30 00:00 | Chronic pain | [facility] | | | | [facility] | + + + + | 2025-01-30 00:00 | Chronic pain | [facility] | | | | [facility] | + + + + | 2025-01-30 00:00 | Chronic pain | [facility] | | | | [facility] | + + + + | 2025-01-31 00:00 | Congestive heart failure | [facility] | | | | [facility] | + + + + | 2025-01-31 00:00 | Congestive heart failure | [facility] | | | | [facility] | + + + + | 2025-01-31 00:00 | Congestive heart failure | [facility] | | | | [facility] | + + + + | 2025-01-31 00:00 | Congestive heart failure | [facility] | | | | [facility] | + + + + | 2025-01-31 00:00 | Deficient knowledge of | [facility] | | | tracheostomy home care | [facility] | + + + + | 2025-01-31 00:00 | Deficient knowledge of | [facility] | | | tracheostomy home care | [facility] | + + + + | 2025-01-31 00:00 | Deficient knowledge of | [facility] | | | tracheostomy home care | [facility] | + + + + | 2025-01-31 00:00 | Deficient knowledge of | [facility] | | | trache[facility] home care | [facility] | + + + + | 2025-02-04 00:00 | Shortness of breath | [facility] | | | | [facility] | + + + + | 2025-02-04 00:00 | Shortness of breath | [facility] | | | | [facility] | + + + + | 2025-02-04 00:00 | Shortness of breath | [facility] | | | | [facility] | + + + + | 2025-02-21 00:00 | Encounter for medical | [facility] | | | screening examination | [facility] | + + + + Procedures No information. Results/Labs +--------+--------+ +---------+--------+---------+ | test | date | facility | value | unit | notes | +--------+--------+ +---------+--------+---------+ + + | Result panel 1 | + + + + + +-------+ + + | Troponin I | 2024-12-07 | | 6.0 | (missing) | (missing) | | SerPl | 09:31:07 | [facility] | | | [facility] - | | | | | | [facility] | | | | + + + +-------+ + + + + | Result panel 2 | + + + + + +--------+ + + | Prothrombin | 2024-12-20 | | 13.7 | (missing) | (missing) | | time | 10:: | [facility] | | | | | [...] 4 | + + + + + +------+ [...] 21 | (missing) | (missing) | | [facility] | 20:04:07 | [facility] | | | [...] (missing) | (missing) | | [facility] | 20:: | [facility] | | | | + + + +------+ + + + + | Result panel 8 | + + + + + +------+ + + | Lipase | 2025-01-01 | | 21 | (missing) | (missing) | | Ser[facility] | 20:04: | [facility] | | | | | [...] + + + + + + | Bilirub Ur | 2025-01-01 | | POSITIVE | [...] + + + + + | Ketones Wei | 2025-01-01 | | NEGATIVE | (missing) [...] + + + + + | Sp Clif Carvajal | 2025-01-01 | | >=1.030 | (missing) [...] | (missing) | (missing) | | | :30:07 | [facility] | | | | + + + +-------+ + + + + | Result panel 17 | + + + + + +-------+ + + | Prot Ur | 2025-01-01 | | 100 | (missing) | (missing) | | Strip-mCsusy | :30:07 | [facility] | | | [...] | (missing) | | esterase Ur | : | [facility] | | | [...] 22 | + + + + + +-------+ + + | WBC #/area | 2025-01-01 | | 2-3 | (missing) | (missing) | | [facility] | 21:30:07 | [facility] | | | [...] 24 | + + + + + + [...] 25 | + + + + + +------+ + + | Bacteria | 2025-01-01 | | 3+ | (missing) | (missing) | | #/area UrnS | :30: | [facility] | | | [...] + + + + + + | Bilirub Ur | 2025-01-01 | | POSITIVE | [...] + + + + + + | Jason Carvajal | 2025-01-01 | | NEGATIVE | (missing) [...] + + + + + + | Jameson Carvajal | 2025-01-01 | | >=1.030 | (missing) [...] 36 | + + + + + + [...] | (missing) | (missing) | | | :30: | [facility] | | | | + + + +-------+ + + + + | Result panel 38 | + + + + + +-------+ + + | Prot Ur | 2025-01-01 | | 100 | (missing) | (missing) | | [facility] | ::07 | [facility] | | | [...] 41 | + + + + + + [...] 2-3 | (missing) | (missing) | | [facility] | 21:30:07 | [facility] | | | [...] | | | | | | | [facility] | | | | + + + + + + + + + | Result panel 45 | + + + + + + + + + | Crystals | 2025-01-01 | | NONE SEEN | (missing) | (missing) | | UrnS Micro | :30:07 | [facility] | | | [...] 47 | + + + + + + [...] + + + + + + | Bilirub Ur | 2025-01-01 | | POSITIVE | (missing) | (missing) | | Ql Strip | :30: | [facility] | | | | + + + + + + + + + | Result panel 55 | + + + + + + + + + | Jason Carvajal | 2025-01-01 | | NEGATIVE | (missing) [...] + + + + + | Sp Clif Carvajal | 2025-01-01 | | >=1.030 | (missing) | (missing) | | Strip | :: | [facility] | | | | + + + + + + + + + | Result panel 57 | + + + + + + + + + | Hgb Ur Ql | 2025-01-01 | | NEGATIVE | (missing) | (missing) | | Strip | :30:07 | [facility] | | [...] | (missing) | (missing) | | | :30: | [facility] | | | | + + + +-------+ + + + + | Result panel 59 | + + + + + +-------+ + + | Prot Ur | 2025-01-01 | | 100 | (missing) | (missing) | | [facility] | 21:30:07 | [facility] | | | [...] 62 | + + + + + + [...] 2-3 | (missing) | (missing) | | [facility] | 21:30:07 | [facility] | | | [...] 66 | + + + + + + + + + | Crystals | 2025-01-01 | | NONE SEEN | (missing) | (missing) | | UrnS Micro | :30:07 | [facility] | | | | + + + + + + + + + | Result panel 67 | + + + + + +------+ [...] 68 | + + + + + + [...] 69 | + + + + + +-------+ [...] 71 | + + + + + + [...] 79 | + + + + + +-------+ [...] 81 | + + + + + +--------+ [...] 84 | + + + + + +-------+ [...] + + + + | Result panel 85 | + + + + + +-------+---------+ + | Glucose | 2025-01-04 | | 220 | mg/dL | (missing) | | [facility] | 11:51:07 | [facility] | | | | + + + +-------+---------+ + + + | Result panel 86 | + + + + + +------+---------+ + | BUN | 2025-01-04 | | 10 | mg/dL | (missing) | | [facility] | 11:51:07 | [facility] | | | | + + + +------+---------+ + + + | Result panel 87 | + + + + + +--------+---------+ + | Creat | 2025-01-04 | | 0.90 | mg/dL | (missing) | | [facility] | 11:51:07 | [facility] | | | | + + + +--------+---------+ + + + | Result panel 88 | + + + + + +------+ [...] 89 | + + + + + +---------+ [...] 92 | + + + + + +-------+ [...] 93 | + + + + + +------+ [...] 94 | + + + + + +--------+ [...] 95 | + + + + + +-------+---------+ [...] +-------+---------+ + + + | Result panel 96 | + + + + + +-------+ + + | Prot | 2025-01-04 | | 7.0 | (missing) | (missing) | | [facility] | 11:51:07 | [facility] | | [...] 3.6 | (missing) | (missing) | | [facility] | 11:51:07 [...] 99 | + + + + + +--------+ [...] 100 | + + + + + +-------+---------+ [...] +-------+---------+ + + + | Result panel 101 | + + + + + +------+ + + | AST | 2025-01-04 | | 57 | (missing) | (missing) | | [facility] [...] 103 | + + + + + +-------+ + + | ALP | 2025-01-04 | | 108 | (missing) | (missing) | | [facility] | 11:51:07 | [facility] | [...] 110 | + + + + + +--------+ [...] 113 | + + + + + +--------+ [...] 117 | + + + + + +-------+---------+ + | Glucose | 2025-01-04 | | 220 | mg/dL | (missing) | | [facility] | 11:51:07 | [facility] | | | | + + + +-------+---------+ + + + | Result panel 118 | + + + + + +------+---------+ + | BUN | 2025-01-04 | | 10 | mg/dL | (missing) | | [facility] | 11:51:07 | [facility] | | | | + + + +------+---------+ + + + | Result panel 119 | + + + + + +--------+---------+ + | Creat | 2025-01-04 | | 0.90 | mg/dL | (missing) | | [facility] | 11:51:07 [facility] | | | | + + + +--------+---------+ + + + | Result panel 120 | + + + + + +------+ [...] 121 | + + + + + +---------+ [...] 124 | + + + + + +-------+ [...] 125 | + + + + + +------+ [...] 126 | + + + + + +--------+ [...] 127 | + + + + + +-------+---------+ [...] +-------+---------+ + + + | Result panel 128 | + + + + + +-------+ + + | Prot | 2025-01-04 | | 7.0 | (missing) | (missing) | | [facility] | 11:51:[facility] | [facility] | | [...] 3.6 | (missing) | (missing) | | [facility] | 11:51:07 | [facility] | | | | + + + +-------+ + + + + | Result panel 130 | + + + + + +-------+ [...] 131 | + + + + + +--------+ [...] 132 | + + + + + +-------+---------+ [...] +-------+---------+ + + + | Result panel 133 [...] 134 | + + + + + +------+ [...] 135 | + + + + + +-------+ [...] 137 | + + + + + +--------+ [...] 140 | + + + + + +-------+ [...] 141 | + + + + + +-------+---------+ [...] +-------+---------+ + + + | Result panel 142 | + + + + + +------+---------+ + | BUN | 2025-01-29 | | 16 | mg/dL | (missing) | | [facility] | 22:52:07 | [facility] | | | | + + + +------+---------+ + + + | Result panel 143 [...] 148 | + + + + + +--------+ [...] 149 | + + + + + +--------+---------+ [...] +--------+---------+ + + + | Result panel 150 | + + + + + +--------+ [...] 151 | + + + + + +-------+ [...] 153 | + + + + + +--------+ [...] 156 | + + + + + +-------+ [...] 157 | + + + + + +-------+---------+ [...] +-------+---------+ + + + | Result panel 158 | + + + + + +------+---------+ + | BUN | 2025-01-29 | | 16 | mg/dL | (missing) | | [facility] | 22:52:07 | [facility] | | | | + + + +------+---------+ + + + | Result panel 159 | + + + + + +--------+---------+ + | Creat | 2025-01-29 | | 0.94 | mg/dL | (missing) | | [facility] | 22:52:07 | [facility] | | | | + + + +--------+---------+ + + + | Result panel 160 [...] 161 | + + + + + +------+ [...] 162 | + + + + + +---------+ + + | BUN/Creat | 2025-01-29 | | 17.02 | (missing) | (missing) | | [facility] | 22:52:07 | [facility] | | | | | | | [...] 165 | + + + + + +-------+ [...] 166 | + + + + + +------+ [...] 167 | + + + + + +--------+ [...] 168 | + + + + + +-------+---------+ [...] +-------+---------+ + + + | Result panel 169 | + + + + + +-------+ + + | Prot | 2025-01-29 | | 6.6 | (missing) | (missing) | | [facility] | 22:52:07 | [facility] | | | | + + + +-------+ + + + + | Result panel 170 | + + + + + +-------+ [...] 171 | + + + + + +---------+ [...] 172 | + + + + + +-------+ [...] 174 | + + + + + +-------+---------+ [...] +-------+---------+ + + + | Result panel 175 [...] 176 | + + + + + +------+ [...] 179 | + + + + + +-------+ [...] 180 | + + + + + +--------+ [...] 183 | + + + + + +------+ [...] 184 | + + + + + +--------+ [...] 185 | + + + + + +-------+---------+ + | Calcium | 2025-01-29 | | 8.8 | mg/dL | (missing) | | [facility] | 22:52:07 [facility] | | | | + + + +-------+---------+ + + + | Result panel 186 [...] 3.4 | (missing) | (missing) | | [facility] | 22[facility] | [facility] | | | | + + + +-------+ + + + + | Result panel 188 | + + + + + +-------+ [...] 189 | + + + + + +--------+ [...] 190 | + + + + + +-------+---------+ [...] +-------+---------+ + + + | Result panel 191 | + + + + + +--------+ [...] 193 | + + + + + +------+ [...] 118 | (missing) | (missing) | | [facility] | 22:52:07 | [facility] | [...] | (missing) | (missing) | | | :52:07 | [facility] | | | [...] 203 | + + + + + +--------+ [...] 204 | + + + + + +-------+ [...] 206 | + + + + + +--------+ [...] 210 | + + + + + +-------+---------+ + | Glucose | 2025-01-29 | | 225 | mg/dL | (missing) | | [facility] | 22:52:07 | [facility] | | | | + + + +-------+---------+ + + + | Result panel 211 | + + + + + +------+---------+ + | BUN | 2025-01-29 | | 16 | mg/dL | (missing) | | [facility] | 22:52:07 | [facility] | | | | + + + +------+---------+ + + + | Result panel 212 | + + + + + +--------+---------+ [...] +--------+---------+ + + + | Result panel 213 [...] 214 | + + + + + +------+ [...] 215 | + + + + + +---------+ [...] 219 | + + + + + +------+ + + | CO2 | 2025-01-29 | | 29 | (missing) | (missing) | | [facility] | 22:52:07 | [facility] | | | | + + + +------+ + + + + | Result panel 220 | + + + + + +--------+ [...] 221 | + + + + + +-------+---------+ [...] +-------+---------+ + + + | Result panel 222 [...] 3.4 | (missing) | (missing) | | [facility] | 22:52:07 | [facility] | | | | + + + +-------+ + + + + | Result panel 224 | + + + + + +--------+ [...] 225 | + + + + + +-------+ [...] 226 | + + + + + +--------+ [...] 227 | + + + + + +-------+---------+ [...] +-------+---------+ + + + | Result panel 228 [...] 229 | + + + + + +------+ [...] 231 | + + + + + +-------+ [...] (missing) | | Auto | 22:52:07 | [facility] | | | [...] 240 | + + + + + +-------+ [...] 242 | + + + + + +--------+ [...] 246 | + + + + + +-------+ [...] + + + + | Result panel 247 | + + + + + +-------+---------+ + | Glucose | 2025-01-29 | | 225 | mg/dL | (missing) | | [facility] | 22:52:07 | [facility] | | | | + + + +-------+---------+ + + + | Result panel 248 | + + + + + +------+---------+ + | BUN | 2025-01-29 | | 16 | mg/dL | (missing) | | [facility] | 22:52:07 | [facility] | | | | + + + +------+---------+ + + + | Result panel 249 | + + + + + +--------+---------+ + | Creat | 2025-01-29 | | 0.94 | mg/dL | (missing) | | [facility] | 22:52:07 | [facility] | | | [facility] | | | | + + + +--------+---------+ + + + | Result panel 250 | + + + + + +------+ [...] 251 | + + + + + +---------+ + + | WALTER/Garry | 2025-01-29 | | 17.02 | (missing) [...] 254 | + + + + + +-------+ [...] 255 | + + + + + +------+ [...] 257 | + + + + + +--------+ [...] 258 | + + + + + +-------+---------+ + | Calcium | 2025-01-29 | | 8.8 | mg/dL | (missing) | | [facility] | 22:52:07 [facility] | | | | + + + +-------+---------+ + + + | Result panel 259 [...] 3.4 | (missing) | (missing) | | [facility] | 22:52:07 | [facility] | | | | + + + +-------+ + + + + | Result panel 261 | + + + + + +-------+ [...] 262 | + + + + + +--------+ [...] 263 | + + + + + +-------+---------+ [...] +-------+---------+ + + + | Result panel 264 [...] 265 | + + + + + +------+ [...] 267 | + + + + + +-------+ [...] units | + + + +---------+ | 2024-12-07 00:00 | BMI | 46.8 | kg/m2 | + + + +---------+ | 2024-12-07 00:00 | BP_diastolic | 98 | mmHg | + + + +---------+ | 2024-12-07 00:00 | BP_systolic | 175 | mmHg | + + + +---------+ | 2024-12-07 00:00 | heart_rate | 98 | /min | + + + +---------+ | 2024-12-07 00:00 | height_metric | 162.56 | cm | + + + +---------+ | 2024-12-07 00:00 | height_standard | 64 | in | + + + +---------+ | 2024-12-07 00:00 | o2_saturation | 91 | % | + + + +---------+ | 2024-12-07 00:00 | respiration_rate | 28 | /min | + + + +---------+ | 2024-12-07 00:00 | temperature_metric | 36.72 | C | | | | | | + + + +---------+ | 2024-12-07 00:00 | | 98.1 | F | | | temperature_standar | | | | | d | | | + + + +---------+ | 2024-12-07 00:00 | weight_metric | 123.8 | kg | + + + +---------+ | 2024-12-07 00:00 | weight_standard | 272.93 | lb | + + + +---------+ | 2024-12-20 [...]
[2025-03-06] MEDS ORDERED: NITROGLYCERIN 0.4 MG SUBL SL PRN (14:30)
[2025-03-06] MEDS ORDERED: ASPIRIN 81 MG CHEW PO ONE (14:30)
[2025-03-06 14:39] LABS: BASOPHILS 0.5 % (0.1-1.2); EOSINOPHILS 5.8 % (0.7-5.8); LYMPHOCYTES 27.0 % (19.3-51.7); MCH 30.2 PG (25.6-32.2); MCHC 31.8 g/dL (32.2-35.5); MCV 95.0 fL (79.4-94.8); MONOCYTES 6.1 % (4.7-12.5); NEUTROPHILS 59.8 % (34.0-71.1); RBC 3.81 M/uL (3.93-5.22)
[2025-03-06 15:00] LABS: ALT (SGPT) 27.0 U/L (14-59); AST (SGOT) 17.0 U/L (15-37); GLOMERULAR FILTRATION RATE,EST 56.0 mL/min (>60); PROTEIN, TOTAL 6.5 g/dL (6.4-8.2); UREA NITROGEN 11.0 mg/dL (7-18)
[2025-03-06 15:59] VITALS: BP 149/54
--- NOTE | 2025-03-07 12:35 | EKG ---
[facility] [address] [facility] [place] [address] Signed Normal sinus rhythm Possible Left atrial enlargement Low voltage QRS Borderline ECG When compared with ECG of 17-FEB-2025 17:55, No significant change was found Confirmed by VIOLETA MANDEL MD ([id number]) on 03/07/2025 12:35:01 PM Electronically Signed By: VIOLETA MANDEL 03/07/25 1235 PATIENT NAME: LEA GARCIA GRACE Electrocardiogram DATE OF : 70 PHYSICIAN: VIOLETA MANDEL REPORT #: [id number] REPORT IS CONFIDENTIAL AND NOT TO BE RELEASED WITHOUT AUTHORIZATION
== END 2025-03-06 16:00 | disposition home or self-care (01) ==
LOC: ED 14:18
PROVIDERS: Emergency Medicine
DX: R07.9 Chest pain, unspecified (principal); F17.200 Nicotine dependence, unspecified, uncomplicated; Z93.0 Tracheostomy status; Z88.0 Allergy status to penicillin; Z88.5 Allergy status to narcotic agent; Z88.1 Allergy status to other antibiotic agents; Z88.6 Allergy status to analgesic agent; Z88.8 Allergy status to other drugs, medicaments and biological substances; Z79.85 Long-term (current) use of injectable non-insulin antidiabetic drugs; Z79.84 Long term (current) use of oral hypoglycemic drugs; Z79.899 Other long term (current) drug therapy
CPT/HCPCS: 36415; 71045; 80053; 83735; 83880; 84484; 85025; 93005; 93010; 96374; 99285-25; A9270; J2405

== ENCOUNTER 2025-03-12 20:21 | Emergency (ER) | payer OTHER ==
[~2025-03-12] VITALS: Ht 162.6 cm; Wt 127.7 kg
--- OUTSIDE RECORDS SUMMARY | ~2025-03-12 | XMS | Continuity of Care Document ---
Demographics + + + | Address | [address] [address] | | | [place] [address] | + + + | Preferred Language | Unknown | + + + | Marital Status | | + + + | Yazidi Affiliation | Unknown | + + + | Race | White | + + + | Ethnic Group | Not or | + + + Author + + + | Author | [facility] | + + + | Organization | [facility] | + + + | Address | [address] | | | [place] [address] | + + + | Phone | | + + + Care Team Providers + + + + | Care Information Technology Program Manager Name | Role | Phone | + [...] Moderate | | 00:00 | | [facility] [...] + + + + | 2025-02-04 | oTny | [facility] - | Rash | Moderate [...] [facility] | | | [facility] | + + + + | 2025-01-01 00:00 | LIDOCAINE 2% VISCOUS | [facility] | | | [facility] | + + + + | 2025-01-01 00:00 | LIDOCAINE 2% VISCOUS | [facility] | | | [facility] | + + + + | 2025-01-01 00:00 | LIDOCAINE 2% VISCOUS | [facility] | | | [facility] | + + + + | 2025-01-01 00:00 | LIDOCAINE 2% VISCOUS | [facility] | | | [facility] | + + + + | (no date) | Lurasidone HCl | [facility] | | | [facility] | + + + + | (no date) | Lurasidone HCl | [facility] | | | [facility] | + + + + | (no date) | Lurasidone HCl | [facility] | | | [facility] | + + + + | (no date) | Lurasidone HCl | [facility] | | | [facility] | + + + + | (no date) | Lurasidone HCl | [facility] | | | [facility] | + + + + | (no date) | LURASIDONE HCL | [facility] | | | [facility] | + + + + | (no date) | LURASIDONE HCL | [facility] | | | [facility] | + + + + | (no date) | LURASIDONE HCL | [facility] | | | [facility] | + + + + | (no date) | LURASIDONE HCL | [facility] | | | [facility] | + + + + | (no date) | LURASIDONE HCL | [facility] | | | [facility] | + + + + | 2025-02-07 00:00 | LORAZEPAM | [facility] | | | [facility] | + + + + | 2025-02-07 00:00 | LORAZEPAM | [facility] | | | [facility] | + + + + | 2025-02-07 00:00 | LORAZEPAM | [facility] | | | [facility] | + + + + | (no date) | OXYCODONE | [facility] | | | HCL/ACETAMINOPHEN | [facility] | + + + + | (no date) | OXYCODONE | [facility] | | | HCL/ACETAMINOPHEN | [facility] | + + + + | (no date) | OXYCODONE | [facility] | | | HCL/ACETAMINOPHEN | [facility] | + + + + | (no date) | OXYCODONE | [facility] | | | HCL/ACETAMINOPHEN | [facility] | + + + + | (no date) | OXYCODONE | [facility] | | | HCL/ACETAMINOPHEN | [facility] | + + + + | (no date) | OXYCODONE HCL | [facility] | | | | [facility] | + + + + | (no date) | OXYCODONE HCL | [facility] | | | | [facility] | + + + + | (no date) | OXYCODONE HCL | [facility] | | | | [facility] | + + + + | (no date) | OXYCODONE HCL | [facility] | | | | [facility] | + + + + | (no date) | OXYCODONE HCL | [facility] | | | | [facility] | + + + + | (no date) | METHYLPHENIDATE HCL | [facility] | | | | [facility] | + + + + | (no date) | METHYLPHENIDATE HCL | [facility] | | | [facility] | + + + + | (no date) | METHYLPHENIDATE HCL | [facility] | | | | [facility] | + + + + | (no date) | METHYLPHENIDATE HCL | [facility] | | | [facility] | + + + + | (no date) | METHYLPHENIDATE HCL | [facility] | | | | [facility] | + + + + | (no date) | Lurasidone HCl | [facility] | | | [facility] | + + + + | (no date) | Lurasidone HCl | [facility] | | | | [facility] | + + + + | (no date) | Lurasidone HCl | [facility] | | | | [facility] | + + + + | (no date) | Lurasidone HCl | [facility] | | | | [facility] | + + + + | (no date) | Lurasidone HCl | [facility] | | | | [facility] | + + + + | (no date) | DULAGLUTIDE | [facility] | | | | [facility] | + + + + | (no date) | DULAGLUTIDE | [facility] | | | | [facility] | + + + + | (no date) | DULAGLUTIDE | [facility] | | | | [facility] | + + + + | (no date) | DULAGLUTIDE | [facility] | | | | [facility] | + + + + | (no date) | DULAGLUTIDE | [facility] | | | | [facility] | + + + + | (no date) | DULAGLUTIDE | [facility] | | | | [facility] | + + + + | (no date) | DULAGLUTIDE | [facility] | | | | [facility] | + + + + | (no date) | DULAGLUTIDE | [facility] | | | | [facility] | + + + + | (no date) | DULAGLUTIDE | [facility] | | | | [facility] | + + + + | (no date) | DULAGLUTIDE | [facility] | | | | [facility] | + + + + | 2025-01-30 00:00 | POTASSIUM CHLORIDE | [facility] | | | | [facility] | + + + + | 2025-01-30 00:00 | POTASSIUM CHLORIDE | [facility] | | | | [facility] | + + + + | 2025-01-30 00:00 | POTASSIUM CHLORIDE | [facility] | | | | [facility] | + + + + | 2025-01-30 00:00 | POTASSIUM CHLORIDE | [facility] | | | | [facility] | + + + + | (no date) | SULFASALAZINE | [facility] | | | | [facility] | + + + + | (no date) | SULFASALAZINE | [facility] | | | | [facility] | + + + + | (no date) | SULFASALAZINE | [facility] | | | | [facility] | + + + + | (no date) | SULFASALAZINE | [facility] | | | | [facility] | + + + + | (no date) | SULFASALAZINE | [facility] | | | | [facility] | + + + + | (no date) | | [facility] | | | SULFAMETHOXAZOLE/TRIMETHOPR | [facility] | | | IM | | + + + + | (no date) | | [facility] | | | SULFAMETHOXAZOLE/TRIMETHOPR | [facility] | | | IM | | + + + + | (no date) | | [facility] | | | SULFAMETHOXAZOLE/TRIMETHOPR | [facility] | | | IM | | + + + + | (no date) | | [facility] | | | SULFAMETHOXAZOLE/TRIMETHOPR | [facility] | | | IM | | + + + + | (no date) | | [facility] | | | SULFAMETHOXAZOLE/TRIMETHOPR | [facility] | | | IM | | + + + + | (no date) | LAMOTRIGINE | [facility] | | | | [facility] | + + + + | (no date) | LAMOTRIGINE | [facility] | | | | [facility] | + + + + | (no date) | LAMOTRIGINE | [facility] | | | | [facility] | + + + + | (no date) | LAMOTRIGINE | [facility] | | | | [facility] | + + + + | (no date) | LAMOTRIGINE | [facility] | | | | [facility] | + + + + | (no date) | GLIMEPIRIDE | [facility] | | | | [facility] | + + + + | (no date) | SKYLAMEPIRIDE | [facility] | | | [facility] | + + + + | (no date) | GLIMEPIRIDE | [facility] | | | | [facility] | + + + + | (no date) | GLIMEPIRIDE | [facility] | | | | [facility] | + + + + | (no date) | SKYLAMEPIRIDE | [facility] | | | | [facility] | + + + + | 2025-01-30 00:00 | FUROSEMIDE | [facility] | | | | [facility] | + + + + | [...] [facility] | | | | [facility] | + + + + | (no date) | GABAPENTIN | [facility] | | | | [facility] | + + + + | (no date) | LEVOFLOXACIN | [facility] | | | | [facility] | + + + + | (no date) | LEVOFLOXACIN | [facility] | | | | [facility] | + + + + | (no date) | LEVOFLOXACIN | [facility] | | | | [facility] | + + + + | (no date) | LEVOFLOXACIN | [facility] | | | | [facility] | + + + + | (no date) | LEVOFLOXACIN | [facility] | | | | [facility] | + + + + | (no date) | MIRTAZAPINE | [facility] | | | | [facility] | + + + + | (no date) | MIRTAZAPINE | [facility] | | | | [facility] | + + + + | (no date) | MIRTAZAPINE | [facility] | | | | [facility] | + + + + | (no date) | MIRTAZAPINE | [facility] | | | | [facility] | + + + + | (no date) | MIRTAZAPINE | [facility] | | | | [facility] | + + + + | (no date) | DULOXETINE HCL | [facility] | | | | [facility] | + + + + | (no date) | DULOXETINE HCL | [facility] | | | | [facility] | + + + + | (no date) | DULOXETINE HCL | [facility] | | | | [facility] | + + + + | (no date) | DULOXETINE HCL | [facility] | | | | [facility] | + + + + | (no date) | DULOXETINE HCL | [facility] | | | | [facility] | + + + + | (no date) | DULOXETINE HCL | [facility] | | | | [facility] | + + + + | (no date) | DULOXETINE HCL | [facility] | | | | [facility] | + + + + | (no date) | DULOXETINE HCL | [facility] | | | | [facility] | + + + + | (no date) | DULOXETINE HCL | [facility] | | | | [facility] | + + + + | (no date) | DULOXETINE HCL | [facility] | | | | [facility] | + + + + | 2025-01-01 00:00 | | [facility] | | | SULFAMETHOXAZOLE/TRIMETHOPR | [facility] | | | IM DS | | + + + + | 2025-01-01 00:00 | | [facility] | | | SULFAMETHOXAZOLE/TRIMETHOPR | [facility] | | | IM DS | | + + + + | 2025-01-01 00:00 | | [facility] | | | SULFAMETHOXAZOLE/TRIMETHOPR | [facility] | | | IM DS | | + + + + | 2025-01-01 00:00 | | [facility] | | | SULFAMETHOXAZOLE/TRIMETHOPR | [facility] | | | IM DS | | + + + + | 2025-01-01 00:00 | | [facility] | | | SULFAMETHOXAZOLE/TRIMETHOPR | [facility] | | | IM DS | | + + + + | (no date) | ZOLPIDEM TARTRATE | [facility] | | | | [facility] | + + + + | (no date) | ZOLPIDEM TARTRATE | [facility] | | | | [facility] | + + + + | (no date) | ZOLPIDEM TARTRATE | [facility] | | | | [facility] | + + + + | (no date) | ZOLPIDEM TARTRATE | [facility] | | | | [facility] | + + + + | (no date) | ZOLPIDEM TARTRATE | [facility] | | | | [facility] | + + + + | (no date) | TRAZODONE HCL | [facility] | | | | [facility] | + + + + | (no date) | TRAZODONE HCL | [facility] | | | | [facility] | + + + + | (no date) | TRAZODONE HCL | [facility] | | | | [facility] | + + + + | (no date) | TRAZODONE HCL | [facility] | | | | [facility] | + + + + | (no date) | TRAZODONE HCL | [facility] | | | | [facility] | + + + + | (no date) | TRAZODONE HCL | [facility] | | | | [facility] | + + + + | (no date) | TRAZODONE HCL | [facility] | | | | [facility] | + + + + | (no date) | TRAZODONE HCL | [facility] | | | | [facility] | + + + + | (no date) | TRAZODONE HCL | [facility] | | | | [facility] | + + + + | (no date) | TRAZODONE HCL | [facility] | | | | [facility] | + + + + | (no date) | ASENAPINE MALEATE | [facility] | | | | [facility] | + + + + | (no date) | ASENAPINE MALEATE | [facility] | | | | [facility] | + + + + | (no date) | ASENAPINE MALEATE | [facility] | | | | [facility] | + + + + | (no date) | ASENAPINE MALEATE | [facility] | | | | [facility] | + + + + | (no date) | ASENAPINE MALEATE | [facility] | | | | [facility] | + + + + | (no date) | METFORMIN HCL | [facility] | | | | [facility] | + + + + | (no date) | METFORMIN HCL | [facility] | | | | [facility] | + + + + | (no date) | METFORMIN HCL | [facility] | | | | [facility] | + + + + | (no date) | METFORMIN HCL | [facility] | | | | [facility] | + + + + | (no date) | METFORMIN HCL | [facility] | | | | [facility] | + + + + | (no date) | HYDROmorphone HCL | [facility] | | | | [facility] | + + + + | (no date) | HYDROmorphone HCL | [facility] | | | | [facility] | + + + + | (no date) | HYDROmorphone HCL | [facility] | | | | [facility] | + + + + | (no date) | CHLORPROMAZINE HCL | [facility] | | | | [facility] | + + + + | (no date) | CHLORPROMAZINE HCL | [facility] | | | | [facility] | + + + + | (no date) | CHLORPROMAZINE HCL | [facility] | | | | [facility] | + + + + | (no date) | CHLORPROMAZINE HCL | [facility] | | | | [facility] | + + + + | (no date) | CHLORPROMAZINE HCL | [facility] | | | | [facility] | + + + + | (no date) | CHLORPROMAZINE HCL | [facility] | | | | [facility] | + + + + | (no date) | CHLORPROMAZINE HCL | [facility] | | | | [facility] | + + + + | (no date) | CHLORPROMAZINE HCL | [facility] | | | | [facility] | + + + + | (no date) | CHLORPROMAZINE HCL | [facility] | | | | [facility] | + + + + | (no date) | CHLORPROMAZINE HCL | [facility] | | | | [facility] | + + + + | (no date) | PROMETHAZINE HCL | [facility] | | | | [facility] | + + + + | (no date) | PROMETHAZINE HCL | [facility] | | | | [facility] | + + + + | (no date) | PROMETHAZINE HCL | [facility] | | | | [facility] | + + + + | (no date) | PROMETHAZINE HCL | [facility] | | | | [facility] | + + + + | (no date) | PROMETHAZINE HCL | [facility] | | | | [facility] | + + + + Problems + + + + | date | description | facility | + + + + | 2024-12-20 00:00 | Psychosis | [facility] | | | | [facility] | + + + + | 2024-12-20 00:00 | Psychosis | [facility] | | | | [facility] | + + + + | 2024-12-20 00:00 | Psychosis | [facility] | | | | [facility] | + + + + | 2024-12-20 00:00 | Psychosis | [facility] | | | | [facility] | + + + + | 2024-12-20 00:00 | Psychosis | [facility] | | | | [facility] | + + + + | 2025-01-01 00:00 | Throat pain | [facility] | | | | [facility] | + + + + | 2025-01-01 00:00 | Throat pain | [facility] | | | | [facility] | + + + + | 2025-01-01 00:00 | Throat pain | [facility] | | | | [facility] | + + + + | 2025-01-01 00:00 | Throat pain | [facility] | | | | [facility] | + + + + | 2025-01-01 00:00 | Throat pain | [facility] | | | | [facility] | + + + + | 2025-01-23 00:00 | Attention to tracheostomy | [facility] | | | | [facility] | + + + + | 2025-01-23 00:00 | Attention to tracheostomy | [facility] | | | | [facility] | + + + + | 2025-01-23 00:00 | Attention to tracheostomy | [facility] | | | | [facility] | + + + + | 2025-01-23 00:00 | Attention to tracheostomy | [facility] | | | | [facility] | + + + + | 2025-01-25 00:00 | Tracheostomy complication | [facility] | | | | [facility] | + + + + | 2025-01-25 00:00 | Tracheostomy complication | [facility] | | | | [facility] | + + + + | 2025-01-25 00:00 | Tracheostomy complication | [facility] | | | | [facility] | + + + + | 2025-01-25 00:00 | Tracheostomy complication | [facility] | | | | [facility] | + + + + | 2025-01-30 00:00 | Chronic pain | [facility] | | | | [facility] | + + + + | 2025-01-30 00:00 | Chronic pain | [facility] | | | | [facility] | + + + + | 2025-01-30 00:00 | Chronic pain | [facility] | | | | [facility] | + + + + | 2025-01-30 00:00 | Chronic pain | [facility] | | | | [facility] | + + + + | 2025-01-31 00:00 | Congestive heart failure | [facility] | | | | [facility] | + + + + | 2025-01-31 00:00 | Congestive heart failure | [facility] | | | | [facility] | + + + + | 2025-01-31 00:00 | Congestive heart failure | [facility] | | | | [facility] | + + + + | 2025-01-31 00:00 | Congestive heart failure | [facility] | | | | [facility] | + + + + | 2025-01-31 00:00 | Deficient knowledge of | [facility] | | | tracheostomy home care | [facility] | + + + + | 2025-01-31 00:00 | Deficient knowledge of | [facility] | | | tracheostomy home care | [facility] | + + + + | 2025-01-31 00:00 | Deficient knowledge of | [facility] | | | tracheostomy home care | [facility] | + + + + | 2025-01-31 00:00 | Deficient knowledge of | [facility] | | | tracheostomy home care | [facility] | + + + + | 2025-02-04 00:00 | Shortness of breath | [facility] | | | | [facility] | + + + + | 2025-02-04 00:00 | Shortness of breath | [facility] | | | | [facility] | + + + + | 2025-02-04 00:00 | Shortness of breath | [facility] | | | | [facility] | + + + + | 2025-02-21 00:00 | Encounter for medical | [facility] | | | screening examination | [facility] | + + + + Procedures No [...] 139 | (missing) | (missing) | | [facility] | 11:51:07 | [facility] | | [...] 57 | (missing) | (missing) | | [facility] | 11:51:07 | [facility] | | [...] 13.9 | (missing) | (missing) | | [facility] | 11[facility]51:07 | [facility] | | | [...] 139 | (missing) | (missing) | | [facility] | 11:51:07 | [facility] | | [...] 73 | (missing) | (missing) | | [facility] | 11:51:07 | [facility] | | [...] 139 | (missing) | (missing) | | [facility] | 22:52:07 | [facility] | | [...] 3.2 | (missing) | (missing) | | [facility] | 22:52:07 | [facility] | | | [...] 16 | (missing) | (missing) | | [facility] | 22:52:07 | [facility] | | [...] 3.2 | (missing) | (missing) | | [facility] | 22:52:07 | [facility] | | | [...] | | | | | | | [facility] | | | | | | | [...] 0.2 | mg/dL | (missing) | | [facility] | 22:52:07 | [facility] | | | [...] 37 | (missing) | (missing) | | [facility] | 22:52:07 | [facility] | | [...] 102 | (missing) | (missing) | | [facility] | 22:52:07 | [facility] | | [...] 3.2 | (missing) | (missing) | | [facility] | 22:52:07 | [facility] | | | [...]
[~2025-03-12 20:21] MED LIST changes: -TRULICITY0.75 MG/0. SQ; +TRULICITY0.75 MG/0. SUB-Q
[2025-03-12 21:04] LABS: BASOPHILS 0.5 % (0.1-1.2); EOSINOPHILS 1.8 % (0.7-5.8); LYMPHOCYTES 22.5 % (19.3-51.7); MCH 30.4 PG (25.6-32.2); MCHC 34.0 g/dL (32.2-35.5); MCV 89.5 fL (79.4-94.8); MONOCYTES 5.1 % (4.7-12.5); NEUTROPHILS 68.9 % (34.0-71.1); RBC 4.01 M/uL (3.93-5.22)
[2025-03-12] MEDS ORDERED: FUROSEMIDE 100 MG/10 ML VIAL IV ONE (21:15)
[2025-03-12] MEDS ORDERED: LORazepam 2 MG/ML VIAL IV ONE (21:15)
[2025-03-12 21:18] LABS: ALT (SGPT) 20.0 U/L (14-59); AST (SGOT) 26.0 U/L (15-37); GLOMERULAR FILTRATION RATE,EST 80.0 mL/min (>60); PROTEIN, TOTAL 7.0 g/dL (6.4-8.2); UREA NITROGEN 7.0 mg/dL (7-18)
[2025-03-12 21:56] LABS: LACTIC ACID, BLOOD 1.0 mmol/L (0.4-2.0)
[2025-03-12 22:32] LABS: BLOOD/HGB, URINE NEGATIVE (Negative); KETONE, URINE NEGATIVE (Negative); LEUK ESTERASE, URINE NEGATIVE (negative); NITRITE, URINE NEGATIVE (negative)
[2025-03-12 22:32] LABS: INFLUENZA B NAA NEGATIVE (NEGATIVE); RESPIRATORY SYNCYTIAL VIR NAA NEGATIVE (NEGATIVE)
[2025-03-13] MEDS ORDERED: KLOR-CON M2020 MEQ PO ×2 (00:09→00:24)
[2025-03-13] MEDS ORDERED: MORPHINE SULFATE 4 MG/ML VIAL ONE (00:12)
[2025-03-13] MEDS ORDERED: MORPHINE SULFATE 4 MG/ML VIAL IV ONE (00:15)
[2025-03-13 00:30] VITALS: BP 167/89
== END 2025-03-13 00:30 | disposition home or self-care (01) ==
LOC: ED 20:21
PROVIDERS: Internal Medicine
DX: B34.9 Viral infection, unspecified (principal); I50.9 Heart failure, unspecified; F17.200 Nicotine dependence, unspecified, uncomplicated; Z93.0 Tracheostomy status; Z86.711 Personal history of pulmonary embolism; Z88.0 Allergy status to penicillin; Z88.5 Allergy status to narcotic agent; Z88.1 Allergy status to other antibiotic agents; Z88.6 Allergy status to analgesic agent; Z88.8 Allergy status to other drugs, medicaments and biological substances; Z79.84 Long term (current) use of oral hypoglycemic drugs; Z79.85 Long-term (current) use of injectable non-insulin antidiabetic drugs; Z79.899 Other long term (current) drug therapy
CPT/HCPCS: 36415; 71045; 80053; 81003; 83605; 83880; 84484; 85025; 87040; 87502; 96365; 96375; 99284-25; J0696; J1938; J2060; J2270; U0002

== ENCOUNTER 2025-03-14 09:21 | Inpatient (IN) | payer OTHER ==
[~2025-03-14] VITALS: Ht 162.6 cm; Wt 122.4 kg
--- OUTSIDE RECORDS SUMMARY | ~2025-03-14 | XMS | Continuity of Care Document ---
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 | Role | Phone | + + + + Unavailable | Unavailable | + + + + Unavailable | Unavailable | + + + + Unavailable | Unavailable | + + + + Unavailable | Unavailable | + + + + Unavailable | Unavailable | + + + + Unavailable | Unavailable | + + + + Allergies and Intolerances + + + + + + | date | description | facility | reaction | severity | + + + + + + | 2025-01-05 | Carbamazepine | [facility] | [facility] | Moderate | | 00:00 | | [facility] | | | + + + + + + | 2025-01-25 | Carbamazepine | [facility] | Rash | Moderate | | 00:00 | | [facility] | | | + + + + + + | 2025-01-31 | Carbamazepine | [facility] | Rash | Moderate | | 00:00 | | [facility] | | | + + + + + + | 2025-02-04 | Carbamazepine | [facility] | Rash | Moderate | | 00:00 | | [facility] | | | + + + + + + | 2025-02-10 | Carbamazepine | [facility] - | Rash | Moderate | | 00:00 | | [facility] | | | + + + + + + | 2025-01-05 | Codeine | [facility] | Rash | Moderate | | 00:00 | | [facility] | | | + + + + + + | 2025-01-25 | [facility] | [facility] - | Rash | Moderate | | 00:00 | | [facility] | | | + + + + + + | 2025-01-31 | [facility] | [facility] - | Rash | Moderate | | 00:00 | | [facility] | | | + + + + + + | 2025-02-04 | [facility] | Isaías - | Rash | Moderate | | 00:00 | | [facility] | | | + + + + + + | 2025-02-10 | Tony | A[facility]it - | Rash | Moderate | | 00:00 | | [facility] | | | + + + + + + | 2025-01-05 | Carbamazepine | [facility] | Rash | Moderate | | 00:00 | | [facility] | | | + + + + + + | 2025-01-25 | Carbamazepine | [facility] | Rash | Moderate | | 00:00 | | [facility] | | | + + + + + + | 2025-01-31 | Carbamazepine | [facility] | Rash | Moderate | | 00:00 | | [facility] | | | + + + + + + | 2025-02-04 | Carbamazepine | [facility] | Rash | Moderate | | 00:00 | | [facility] | | | + + + + + + | 2025-02-10 | Carbamazepine | [facility] | Rash | Moderate | | 00:00 | | [facility] | | | + + + + + + | 2025-01-05 | Ketorolac | [facility] - | (no reaction) | Mild | | 00:00 | | [facility] | | | + + + + + + | 2025-01-25 | Ketorolac | [facility] - | (no reaction) | Mild | | 00:00 | | [facility] | | | + + + + + + | 2025-01-31 | Ketorolac | [facility] - | (no reaction) | Mild | | 00:00 | | [facility] | | | + + + + + + | 2025-02-04 | Ketorolac | [facility] - | (no reaction) | Mild | | 00:00 | | [facility] | | | + + + + + + | 2025-02-10 | Ketorolac | [facility] - | (no reaction) | Mild | | 00:00 | | [facility] | | | + + + + + + | 2025-01-05 | Ketorolac | [facility] - | (no reaction) | Mild | | 00:00 | | [facility] | | | + + + + + + | 2025-01-25 | Ketorolac | [facility] - | (no reaction) | Mild | | 00:00 | | [facility] | | | + + + + + + | 2025-01-31 | Ketorolac | [facility] - | (no reaction) | Mild | | 00:00 | | [facility] | | | + + + + + + | 2025-02-04 | Ketorolac | [facility] - | (no reaction) | Mild | | 00:00 | | [facility] | | | + + + + + + | 2025-02-10 | Ketorolac | [facility] - | (no reaction) | Mild | | 00:00 | | [facility] | | | + + + + + + | 2025-01-05 | Amoxicillin | [facility] | Rash | Moderate | | 00:00 | | [facility] | | | + + + + + + | 2025-01-25 | Amoxicillin | [facility] | Rash | Moderate | | 00:00 | | [facility] | | | + + + + + + | 2025-01-31 | Amoxicillin | [facility] | Rash | Moderate | | 00:00 | | [facility] | | | + + + + + + | 2025-02-04 | Amoxicillin | [facility] | Rash | Moderate | | 00:00 | | [facility] | | | + + + + + + | 2025-02-10 | Amoxicillin | [facility] | Rash | Moderate | | 00:00 | | [facility] | | | + + + + + + | 2025-01-05 | Nitrofurantoin | [facility] | Rash | Moderate | | 00:00 | | [facility] | | | + + + + + + | 2025-01-25 | Nitrofurantoin | [facility] | Rash | Moderate | | 00:00 | | [facility] | | | + + + + + + | 2025-01-31 | Nitrofurantoin | [facility] | Rash | Moderate | | 00:00 | | [facility] | | | + + + + + + | 2025-02-04 | Nitrofurantoin | [facility] | Rash | Moderate | | 00:00 | | [facility] | | | + + + + + + | 2025-02-10 | Nitrofurantoin | [facility] | Rash | Moderate | | 00:00 | | [facility] | | | + + + + + + | 2025-01-05 | Carbamazepine | [facility] | Rash | Moderate | | 00:00 | | [facility] | | | + + + + + + | 2025-01-25 | Carbamazepine | [facility] | Rash | Moderate | | 00:00 | | [facility] | | | + + + + + + | 2025-01-31 | Carbamazepine | [facility] | Rash | Moderate | | 00:00 | | [facility] | | | + + + + + + | 2025-02-04 | Carbamazepine | [facility] | Rash | Moderate | | 00:00 | | [facility] | | | + + + + + + | 2025-02-10 | Carbamazepine | [facility] | Rash | Moderate | | 00:00 | | [facility] | | | + + + + + + | 2025-01-05 | Codeine | [facility] | Rash | Moderate | | 00:00 | | [facility] | | | + + + + + + | 2025-01-25 | Codeine | [facility] | Rash | Moderate | | 00:00 | | [facility] | | | + + + + + + | 2025-01-31 | Codeine | [facility] | Rash | Moderate | | 00:00 | | [facility] | | | + + + + + + | 2025-02-04 | Codeine | [facility] | Rash | Moderate | | 00:00 | | [facility] | | | + + + + + + | 2025-02-10 | Codeine | [facility] | Rash | Moderate | | 00:00 | | [facility] | | | + + + + + + | 2025-01-05 | Paliperidone | [facility] | Rash | Moderate | | 00:00 | | [facility] | | | + + + + + + | 2025-01-25 | Paliperidone | [facility] | Rash | Moderate | | 00:00 | | [facility] | | | + + + + + + | 2025-01-31 | Paliperidone | [facility] | Rash | Moderate | | 00:00 | | [facility] | | | + + + + + + | 2025-02-04 | Paliperidone | [facility] | Rash | Moderate | | 00:00 | | [facility] | | | + + + + + + | 2025-02-10 | Paliperidone | [facility] | Rash | Moderate | | 00:00 | | [facility] | | | + + + + + + | 2025-01-05 | Paliperidone | [facility] | Rash | Moderate | | 00:00 | | [facility] | | | + + + + + + | 2025-01-25 | Paliperidone | [facility] | Rash | Moderate | | 00:00 | | [facility] | | | + + + + + + | 2025-01-31 | Paliperidone | [facility] - | Rash | Moderate | | 00:00 | | [facility] | | | + + + + + + | 2025-02-04 | Paliperidone | [facility] - | Rash | Moderate | | 00:00 | | [facility] | | | + + + + + + | 2025-02-10 | Paliperidone | [facility] | Rash | Moderate | | 00:00 | | [facility] | | | + + + + + + | 2025-01-05 | Amoxicillin | [facility] - | Rash | Moderate | | 00:00 | | [facility] | | | + + + + + + | 2025-01-25 | Amoxicillin | [facility] | Rash | Moderate | | 00:00 | | [facility] | | | + + + + + + | 2025-01-31 | Amoxicillin | [facility] | Rash | Moderate | | 00:00 | | [facility] | | | + + + + + + | 2025-02-04 | Amoxicillin | [facility] | Rash | Moderate | | 00:00 | | [facility] | | | + + + + + + | 2025-02-10 | Amoxicillin | [facility] | Rash | Moderate | | 00:00 | | [facility] | | | + + + + + + | 2025-01-05 | Nitrofurantoin | [facility] - | Rash | Moderate | | 00:00 | | [facility] | | | + + + + + + | 2025-01-25 | Nitrofurantoin | [facility] - | Rash | Moderate | | 00:00 | | [facility] | | | + + + + + + | 2025-01-31 | Nitrofurantoin | [facility] - | Rash | Moderate | | 00:00 | | [facility] | | | + + + + + + | 2025-02-04 | Nitrofurantoin | [facility] - | Rash | Moderate | | 00:00 | | [facility] | | | + + + + + + | 2025-02-10 | Nitrofurantoin | [facility] - | Rash | Moderate | | 00:00 | | [facility] | | | + + + + + + | 2025-01-05 | Amoxicillin | [facility] - | Rash | Moderate | | 00:00 | | [facility] | | | + + + + + + | 2025-01-25 | Amoxicillin | [facility] - | Rash | Moderate | | 00:00 | | [facility] | | | + + + + + + | 2025-01-31 | Amoxicillin | [facility] - | Rash | Moderate | | 00:00 | | [facility] | | | + + + + + + | 2025-02-04 | Amoxicillin | [facility] - | Rash | Moderate | | 00:00 | | [facility] | | | + + + + + + | 2025-02-10 | Amoxicillin | [facility] - | Rash | Moderate | | 00:00 | | [facility] | | | + + + + + + | 2025-01-05 | Paliperidone | [facility] - | Rash | Moderate | | 00:00 | | [facility] | | | + + + + + + | 2025-01-25 | Paliperidone | [facility] - | Rash | Moderate | | 00:00 | | [facility] | | | + + + + + + | 2025-01-31 | Paliperidone | [facility] - | Rash | Moderate | | 00:00 | | [facility] | | | + + + + + + | 2025-02-04 | Paliperidone | [facility] - | Rash | Moderate | | 00:00 | | [facility] | | | + + + + + + | 2025-02-10 | Paliperidone | [facility] - | Rash | Moderate | | 00:00 | | [facility] | | | + + + + + + | 2025-01-05 | Penicillin | [facility] - | Rash | Moderate | | 00:00 | | [facility] | | | + + + + + + | 2025-01-25 | Penicillin | [facility] - | Rash | Moderate | | 00:00 | | [facility] | | | + + + + + + | 2025-01-31 | Penicillin | [facility] - | Rash | Moderate | | 00:00 | | [facility] | | | + + + + + + | 2025-02-04 | Penicillin | [facility] - | Rash | Moderate | | 00:00 | | [facility] | | | + + + + + + | 2025-02-10 | Penicillin | [facility] - | Rash | Moderate | | 00:00 | | [facility] | | | + + + + + + | 2025-01-05 | Nitrofurantoin | [facility] - | Rash | Moderate | | 00:00 | | [facility] | | | + + + + + + | 2025-01-25 | Nitrofurantoin | [facility] - | Rash | Moderate | | 00:00 | | [facility] | | | + + + + + + | 2025-01-31 | Nitrofurantoin | [facility] - | Rash | Moderate | | 00:00 | | [facility] | | | + + + + + + | 2025-02-04 | Nitrofurantoin | [facility] - | Rash | Moderate | | 00:00 | | [facility] | | | + + + + + + | 2025-02-10 | Nitrofurantoin | [facility] - | Rash | Moderate | | 00:00 | | [facility] | | | + + + + + + | 2025-01-05 | Penicillin | [facility] - | Rash | Moderate | | 00:00 | | [facility] | | | + + + + + + | 2025-01-25 | Penicillin | [facility] - | Rash | Moderate | | 00:00 | | [facility] | | | + + + + + + | 2025-01-31 | Penicillin | [facility] - | Rash | Moderate | | 00:00 | | [facility] | | | + + + + + + | 2025-02-04 | Penicillin | [facility] - | Rash | Moderate | | 00:00 | | [facility] | | | + + + + + + | 2025-02-10 | Penicillin | [facility] | Rash | Moderate | | 00:00 | | [facility] | | | + + + + + + | 2025-01-05 | Penicillin | [facility] - | Rash | Moderate | | 00:00 | | [facility] | | | + + + + + + | 2025-01-25 | Penicillin | [facility] - | Rash | Moderate | | 00:00 | | [facility] | | | + + + + + + | 2025-01-31 | Penicillin | [facility] - | Rash | Moderate | | 00:00 | | [facility] | | | + + + + + + | 2025-02-04 | Penicillin | [facility] | Rash | Moderate | | 00:00 | | [facility] | | | + + + + + + | 2025-02-10 | Penicillin | [facility] - | Rash | Moderate | | 00:00 | | [facility] | | | + + + + + + | 2025-01-05 | Tony | Isaías - | Rash | Moderate | | 00:00 | | [facility] | | | + + + + + + | 2025-01-25 | [facility] | Isaías - | Rash | Moderate | | 00:00 | | [facility] | | | + + + + + + | 2025-01-31 | [facility] | Isaías - | Rash | Moderate | | 00:00 | | [facility] | | | + + + + + + | 2025-02-04 | [facility] | [facility] | Rash | Moderate | | 00:00 | | [facility] | | | + + + + + + | 2025-02-10 | Codeine | [facility] | Rash | Moderate | | 00:00 | | [facility] | | | + + + + + + | 2025-01-05 | Ketorolac | [facility] - | (no reaction) | Mild | | 00:00 | | [facility] | | | + + + + + + | 2025-01-25 | Ketorolac | [facility] - | (no reaction) | Mild | | 00:00 | | [facility] | | | + + + + + + | 2025-01-31 | Ketorolac | [facility] - | (no reaction) | Mild | | 00:00 | | [facility] | | | + + + + + + | 2025-02-04 | Ketorolac | [facility] - | (no reaction) | Mild | | 00:00 | | [facility] | | | + + + + + + | 2025-02-10 | Ketorolac | [facility] - | (no reaction) | Mild | | 00:00 | | [facility] | | | + + + + + + Encounters No information. Functional Status No information. Immunizations No information. Medications + + + + | date | description | facility | + + + + | 2025-01-01 00:00 | LIDOCAINE 2% VISCOUS | [facility] | | | [facility] | + + + + | 2025-01-01 00:00 | LIDOCAINE 2% VISCOUS | [facility] | | | [facility] | + + + + | 2025-01-01 00:00 | LIDOCAINE 2% VISCOUS | [facility] | | | [facility] | + + + + | 2025-01-01 00:00 | LIDOCAINE 2% VISCOUS | [facility] | | | [facility] | + + + + | 2025-01-01 00:00 | LIDOCAINE 2% VISCOUS | [facility] | | | [facility] | + + + + | (no date) | Lurasidone HCl | [facility] | | | [facility] | + + + + | (no date) | Lurasidone HCl | [facility] | | | [facility] | + + + + | (no date) | Lurasidone HCl | [facility] | | | [facility] | + + + + | (no date) | Lurasidone HCl | [facility] | | | [facility] | + + + + | (no date) | Lurasidone HCl | [facility] | | | [facility] | + + + + | (no date) | LURASIDONE HCL | [facility] | | | [facility] | + + + + | (no date) | LURASIDONE HCL | [facility] | | | [facility] | + + + + | (no date) | LURASIDONE HCL | [facility] | | | [facility] | + + + + | (no date) | LURASIDONE HCL | [facility] | | | [facility] | + + + + | (no date) | LURASIDONE HCL | [facility] | | | [facility] | + + + + | 2025-02-07 00:00 | LORAZEPAM | [facility] | | | [facility] | + + + + | 2025-02-07 00:00 | LORAZEPAM | [facility] | | | [facility] | + + + + | 2025-02-07 00:00 | LORAZEPAM | [facility] | | | [facility] | + + + + | (no date) | OXYCODONE | [facility] | | | HCL/ACETAMINOPHEN | [facility] | + + + + | (no date) | OXYCODONE | [facility] | | | HCL/ACETAMINOPHEN | [facility] | + + + + | (no date) | O[facility]CODONE | [facility] | | | HCL/ACETAMINOPHEN | [facility] | + + + + | (no date) | OXYCODONE | [facility] | | | HCL/ACETAMINOPHEN | [facility] | + + + + | (no date) | OXYCODONE | [facility] | | | HCL/ACETAMINOPHEN | [facility] | + + + + | (no date) | OXYCODONE HCL | [facility] [place] | | | | [facility] | + + + + | (no date) | OXYCODONE HCL | [facility] | | | [facility] | + + + + | (no date) | OXYCODONE HCL | [facility] | | | [facility] | + + + + | (no date) | OXYCODONE HCL | [facility] | | | [facility] | + + + + | (no date) | OXYCODONE HCL | [facility] [place] | | | [facility] | + + + + | (no date) | METHYLPHENIDATE HCL | [facility] | | | [facility] | + + + + | (no date) | METHYLPHENIDATE HCL | [facility] | | | [facility] | + + + + | (no date) | METHYLPHENIDATE HCL | [facility] | | | [facility] | + + + + | (no date) | METHYLPHENIDATE HCL | [facility] | | | [facility] | + + + + | (no date) | METHYLPHENIDATE HCL | [facility] | | | [facility] | + + + + | (no date) | Lurasidone HCl | [facility] | | | [facility] | + + + + | (no date) | Lurasidone HCl | [facility] | | | | [facility] | + + + + | (no date) | Lurasidone HCl | [facility] [place] [place] [facility] | | | | [facility] | + + + + | (no date) | Lurasidone HCl | [facility] | | | [facility] | + + + + | (no date) | Lurasidone HCl | [facility] | | | | [facility] | + + + + | (no date) | DULAGLUTIDE | [facility] | | | [facility] | + + + + | (no date) | DULAGLUTIDE | [facility] | | | [facility] | + + + + | (no date) | DULAGLUTIDE | [facility] | | | [facility] | + + + + | (no date) | DULAGLUTIDE | [facility] | | | | [facility] | + + + + | (no date) | DULAGLUTIDE | [facility] | | | [facility] | + + + + | (no date) | DULAGLUTIDE | [facility] | | | [facility] | + + + + | (no date) | DULAGLUTIDE | [facility] | | | | [facility] | + + + + | (no date) | DULAGLUTIDE | [facility] | | | | [facility] | + + + + | (no date) | DULAGLUTIDE | [facility] | | | [facility] | + + + + | (no date) | DULAGLUTIDE | [facility] | | | | [facility] | + + + + | 2025-01-30 00:00 | POTASSIUM CHLORIDE | [facility] | | | [facility] | + + + + | 2025-01-30 00:00 | POTASSIUM CHLORIDE | [facility] | | | | [facility] | + + + + | 2025-01-30 00:00 | POTASSIUM CHLORIDE | [facility] | | | | [facility] | + + + + | 2025-01-30 00:00 | POTASSIUM CHLORIDE | [facility] | | | | [facility] | + + + + | (no date) | SULFASALAZINE | [facility] | | | [facility] | + + + + | (no date) | SULFASALAZINE | [facility] | | | [facility] | + + + + | (no date) | SULFASALAZINE | [facility] | | | [facility] | + + + + | (no date) | SULFASALAZINE | [facility] | | | [facility] | + + + + | (no date) | SULFASALAZINE | [facility] | | | [facility] | + + + + | (no date) | | [facility] | | | SULFAMETHOXAZOLE/TRIMETHOPR | [facility] | | | IM | | + + + + | (no date) | | [facility] | | | SULFAMETHOXAZOLE/TRIMETHOPR | [facility] | | | IM | | + + + + | (no date) | | [facility] | | | SULFAMETHOXAZOLE/TRIMETHOPR | [facility] | | | IM | | + + + + | (no date) | | [facility] | | | SULFAMETHOXAZOLE/TRIMETHOPR | [facility] | | | IM | | + + + + | (no date) | | [facility] | | | SULFAMETHOXAZOLE/TRIMETHOPR | [facility] | | | IM | | + + + + | (no date) | LAMOTRIGINE | [facility] [place] [place] [facility] | | | | [facility] | + + + + | (no date) | LAMOTRIGINE | [facility] | | | | [facility] | + + + + | (no date) | LAMOTRIGINE | [facility] | | | | [facility] | + + + + | (no date) | LAMOTRIGINE | [facility] | | | [facility] | + + + + | (no date) | LAMOTRIGINE | [facility] | | | [facility] | + + + + | (no date) | GLIMEPIRIDE | [facility] | | | [facility] | + + + + | (no date) | SKYLAMEPIRIDE | [facility] | | | [facility] | + + + + | (no date) | GLIMEPIRIDE | [facility] | | | | [facility] | + + + + | (no date) | GLIMEPIRIDE | [facility] | | | | [facility] | + + + + | (no date) | SKYLAMEPIRIDE | [facility] | | | [facility] | + + + + | 2025-01-30 00:00 | FUROSEMIDE | [facility] | | | | [facility] | + + + + | 2025-01-30 00:00 | FUROSEMIDE | [facility] | | | [facility] | + + + + | 2025-01-30 00:00 | FUROSEMIDE | [facility] | | | | [facility] | + + + + | 2025-01-30 00:00 | FUROSEMIDE | [facility] | | | | [facility] | + + + + | (no date) | CIPROFLOXACIN HCL | [facility] | | | | [facility] | + + + + | (no date) | CIPROFLOXACIN HCL | [facility] | | | | [facility] | + + + + | (no date) | CIPROFLOXACIN HCL | [facility] | | | | [facility] | + + + + | (no date) | CIPROFLOXACIN HCL | [facility] | | | | [facility] | + + + + | (no date) | CIPROFLOXACIN HCL | [facility] | | | | [facility] | + + + + | (no date) | GABAPENTIN | [facility] | | | | [facility] | + + + + | (no date) | GABAPENTIN | [facility] | | | | [facility] | + + + + | (no date) | GABAPENTIN | [facility] | | | | [facility] | + + + + | (no date) | GABAPENTIN | [facility] | | | | [facility] | + + + + | (no date) | LEVOFLOXACIN | [facility] | | | | [facility] | + + + + | (no date) | LEVOFLOXACIN | [facility] | | | | [facility] | + + + + | (no date) | LEVOFLOXACIN | [facility] | | | | [facility] | + + + + | (no date) | LEVOFLOXACIN | [facility] | | | | [facility] | + + + + | (no date) | LEVOFLOXACIN | [facility] | | | | [facility] | + + + + | (no date) | MIRTAZAPINE | [facility] | | | | [facility] | + + + + | (no date) | MIRTAZAPINE | [facility] | | | | [facility] | + + + + | (no date) | MIRTAZAPINE | [facility] | | | | [facility] | + + + + | (no date) | MIRTAZAPINE | [facility] | | | | [facility] | + + + + | (no date) | MIRTAZAPINE | [facility] | | | | [facility] | + + + + | (no date) | DULOXETINE HCL | [facility] [place] | | | | [facility] | + + + + | (no date) | DULOXETINE HCL | [facility] | | | | [facility] | + + + + | (no date) | DULOXETINE HCL | [facility] | | | | [facility] | + + + + | (no date) | DULOXETINE HCL | [facility] | | | | [facility] | + + + + | (no date) | DULOXETINE HCL | [facility] | | | | [facility] | + + + + | (no date) | DULOXETINE HCL | [facility] | | | | [facility] | + + + + | (no date) | DULOXETINE HCL | [facility] | | | | [facility] | + + + + | (no date) | DULOXETINE HCL | [facility] | | | | [facility] | + + + + | (no date) | DULOXETINE HCL | [facility] [place] [facility] | | | | [facility] | + + + + | (no date) | DULOXETINE HCL | [facility] [place] [place] [facility] | | | | [facility] | + + + + | 2025-01-01 00:00 | | [facility] | | | SULFAMETHOXAZOLE/TRIMETHOPR | [facility] | | | IM DS | | + + + + | 2025-01-01 00:00 | | [facility] | | | SULFAMETHOXAZOLE/TRIMETHOPR | [facility] | | | IM DS | | + + + + | 2025-01-01 00:00 | | [facility] | | | SULFAMETHOXAZOLE/TRIMETHOPR | [facility] | | | IM DS | | + + + + | 2025-01-01 00:00 | | [facility] | | | SULFAMETHOXAZOLE/TRIMETHOPR | [facility] | | | IM DS | | + + + + | 2025-01-01 00:00 | | [facility] | | | SULFAMETHOXAZOLE/TRIMETHOPR | [facility] | | | IM DS | | + + + + | (no date) | ZOLPIDEM TARTRATE | [facility] | | | | [facility] | + + + + | (no date) | ZOLPIDEM TARTRATE | [facility] [place] [place] [facility] | | | | [facility] | + + + + | (no date) | ZOLPIDEM TARTRATE | [facility] | | | | [facility] | + + + + | (no date) | ZOLPIDEM TARTRATE | [facility] | | | | [facility] | + + + + | (no date) | ZOLPIDEM TARTRATE | [facility] | | | | [facility] | + + + + | (no date) | TRAZODONE HCL | [facility] | | | | [facility] | + + + + | (no date) | TRAZODONE HCL | [facility] | | | | [facility] | + + + + | (no date) | TRAZODONE HCL | [facility] | | | | [facility] | + + + + | (no date) | TRAZODONE HCL | [facility] | | | | [facility] | + + + + | (no date) | TRAZODONE HCL | [facility] | | | | [facility] | + + + + | (no date) | TRAZODONE HCL | [facility] | | | | [facility] | + + + + | (no date) | TRAZODONE HCL | [facility] | | | | [facility] | + + + + | (no date) | TRAZODONE HCL | [facility] | | | | [facility] | + + + + | (no date) | TRAZODONE HCL | [facility] | | | [facility] | + + + + | (no date) | TRAZODONE HCL | [facility] | | | [facility] | + + + + | (no date) | ASENAPINE MALEATE | [facility] | | | | [facility] | + + + + | (no date) | ASENAPINE MALEATE | [facility] | | | | [facility] | + + + + | (no date) | ASENAPINE MALEATE | [facility] | | | [facility] | + + + + | (no date) | ASENAPINE MALEATE | [facility] | | | | [facility] | + + + + | (no date) | ASENAPINE MALEATE | [facility] | | | | [facility] | + + + + | (no date) | METFORMIN HCL | [facility] | | | [facility] | + + + + | (no date) | METFORMIN HCL | [facility] [place] [facility] | | | | [facility] | + + + + | (no date) | METFORMIN HCL | [facility] [place] | | | | [facility] | + + + + | (no date) | METFORMIN HCL | [facility] [place] [facility] | | | | [facility] | + + + + | (no date) | METFORMIN HCL | [facility] [place] [facility] | | | | [facility] | + + + + | (no date) | HYDROmorphone HCL | [facility] | | | | [facility] | + + + + | (no date) | HYDROmorphone HCL | [facility] [place] | | | | [facility] | + + + + | (no date) | HYDROmorphone HCL | [facility] [place] [place] [facility] | | | | [facility] | + + + + | (no date) | CHLORPROMAZINE HCL | [facility] [place] [place] [facility] | | | | [facility] | + + + + | (no date) | CHLORPROMAZINE HCL | [facility] [place] [place] [facility] | | | | [facility] | + + + + | (no date) | CHLORPROMAZINE HCL | [facility] [place] [facility] | | | | [facility] | + + + + | (no date) | CHLORPROMAZINE HCL | [facility] [place] [facility] | | | | [facility] | + + + + | (no date) | CHLORPROMAZINE HCL | [facility] [place] [place] [facility] | | | | [facility] | + + + + | (no date) | CHLORPROMAZINE HCL | [facility] [place] [place] [facility] | | | | [facility] | + + + + | (no date) | CHLORPROMAZINE HCL | [facility] [place] [place] [facility] | | | | [facility] | + + + + | (no date) | CHLORPROMAZINE HCL | [facility] [place] [place] [facility] | | | | [facility] | + + + + | (no date) | CHLORPROMAZINE HCL | [facility] | | | | [facility] | + + + + | (no date) | CHLORPROMAZINE HCL | [facility] | | | | [facility] | + + + + | (no date) | PROMETHAZINE HCL | [facility] | | | | [facility] | + + + + | (no date) | PROMETHAZINE HCL | [facility] | | | | [facility] | + + + + | (no date) | PROMETHAZINE HCL | [facility] | | | | [facility] | + + + + | (no date) | PROMETHAZINE HCL | [facility] | | | [facility] | + + + + | (no date) | PROMETHAZINE HCL | [facility] | | | | [facility] | + + + + Problems + + + + | date | description | facility | + + + + | 2024-12-20 00:00 | Psychosis | [facility] [place] [facility] | | | | [facility] | + + + + | 2024-12-20 00:00 | Psychosis | [facility] | | | | [facility] | + + + + | 2024-12-20 00:00 | Psychosis | [facility] | | | | [facility] | + + + + | 2024-12-20 00:00 | Psychosis | [facility] [place] [facility] | | | | [facility] | + + + + | 2024-12-20 00:00 | Psychosis | [facility] | | | | [facility] | + + + + | 2025-01-01 00:00 | Throat pain | [facility] [place] [facility] | | | | [facility] | + + + + | 2025-01-01 00:00 | Throat pain | [facility] | | | | [facility] | + + + + | 2025-01-01 00:00 | Throat pain | [facility] | | | | [facility] | + + + + | 2025-01-01 00:00 | Throat pain | [facility] | | | | [facility] | + + + + | 2025-01-01 00:00 | Throat pain | [facility] | | | | [facility] | + + + + | 2025-01-23 00:00 | Attention to tracheostomy | [facility] | | | | [facility] | + + + + | 2025-01-23 00:00 | Attention to tracheostomy | [facility] | | | [facility] | + + + + | 2025-01-23 00:00 | Attention to tracheostomy | [facility] | | | | [facility] | + + + + | 2025-01-23 00:00 | Attention to tracheostomy | [facility] | | | | [facility] | + + + + | 2025-01-25 00:00 | Tracheostomy complication | [facility] | | | | [facility] | + + + + | 2025-01-25 00:00 | Tracheostomy complication | [facility] | | | | [facility] | + + + + | 2025-01-25 00:00 | Tracheostomy complication | [facility] [place] [place] [facility] | | | | [facility] | + + + + | 2025-01-25 00:00 | Tracheostomy complication | [facility] [place] [facility] | | | | [facility] | + + + + | 2025-01-30 00:00 | Chronic pain | [facility] | | | | [facility] | + + + + | 2025-01-30 00:00 | Chronic pain | [facility] [place] [place] [facility] | | | | [facility] | + + + + | 2025-01-30 00:00 | Chronic pain | [facility] | | | | [facility] | + + + + | 2025-01-30 00:00 | Chronic pain | [facility] [place] [facility] | | | | [facility] | + + + + | 2025-01-31 00:00 | Congestive heart failure | [facility] [place] [facility] | | | | [facility] | + + + + | 2025-01-31 00:00 | Congestive heart failure | [facility] [place] [facility] | | | | [facility] | + + + + | 2025-01-31 00:00 | Congestive heart failure | [facility] [place] [facility] | | | | [facility] | + + + + | 2025-01-31 00:00 | Congestive heart failure | [facility] | | | | [facility] | + + + + | 2025-01-31 00:00 | Deficient knowledge of | [facility] [place] [place] [facility] | | | tracheostomy home care | [facility] | + + + + | 2025-01-31 00:00 | Deficient knowledge of | [facility] | | | tracheostomy home care | [facility] | + + + + | 2025-01-31 00:00 | Deficient knowledge of | [facility] | | tracheostomy home care | [facility] | + + + + | 2025-01-31 00:00 | Deficient knowledge of | [facility] | | | tracheostomy home care | [facility] | + + + + | 2025-02-04 00:00 | Shortness of breath | [facility] | | | | [facility] | + + + + | 2025-02-04 00:00 | Shortness of breath | [facility] | | | | [facility] | + + + + | 2025-02-04 00:00 | Shortness of breath | [facility] | | | | [facility] | + + + + | 2025-02-21 00:00 | Encounter for medical | [facility] | | | screening examination | [facility] | + + + + Procedures No information. Results/Labs +--------+--------+ +---------+--------+---------+ | test | date | facility | value | unit | notes | +--------+--------+ +---------+--------+---------+ + + | Result panel 1 | + + + + + +--------+ + + | Prothrombin | 2024-12-20 | | 13.7 | (missing) | (missing) | | time | 10:29:07 | [facility] | | | | + + + +--------+ + + + + | Result panel 2 | + + + + + +--------+ + + | INR PPP | 2024-12-20 | | 1.12 | (missing) | (missing) | | | 10:29:07 | [facility] | | | | + + + +--------+ + + + + | Result panel 3 | + + + + + +------+ + + | Ethanol | 2024-12-20 | | <3 | (missing) | (missing) | | SerPl-sCnc | 10:29:07 | [facility] | | | | + + + +------+ + + + + | Result panel 4 | + + + + + +-------+ + + | Ammonia | 2024-12-20 | | <10 | (missing) | (missing) | | Plas-sCnc | 10:39:07 | [facility] | | | | + + + +-------+ + + + + | Result panel 5 | + + + + + +------+ + + | Lipase | 2025-01-01 | | 21 | (missing) | (missing) | | SerPl-cCnc | 20:04:07 | [facility] | | | | + + + +------+ + + + + | Result panel 6 | + + + + + +------+ + + | Lipase | 2025-01-01 | | 21 | (missing) | (missing) | | SerPl-cCnc | 20:04:07 | [facility] | | | | + + + +------+ + + + + | Result panel 7 | + + + + + +------+ + + | Lipase | 2025-01-01 | | 21 | (missing) | (missing) | | SerPl-cCnc | 20:04:07 | [facility] | | | | + + + +------+ + + + + | Result panel 8 | + + + + + + + + + | Color Ur | 2025-01-01 | | YELLOW | (missing) | (missing) | | Auto | 21:30:07 | [facility] | | | | + + + + + + + + + | Result panel 9 | + + + + + + + + + | Character | 2025-01-01 | | SL CLOUDY | (missing) | (missing) | | Ur | :: | [facility] | | | | + + + + + + + + + | Result panel 10 | + + + + + + + + + | Glucose Ur | 2025-01-01 | | NEGATIVE | (missing) | (missing) | | Ql Strip | :: | [facility] | | | | + + + + + + + + + | Result panel 11 | + + + + + + + + + | Skye Carvajal | 2025-01-01 | | POSITIVE | (missing) | (missing) | | Ql Strip | 21:30:07 | [facility] | | | | + + + + + + + + + | Result panel 12 | + + + + + + + + + | Ketones Ur | 2025-01-01 | | NEGATIVE | (missing) | (missing) | | Ql Strip | 21:30:07 | [facility] | | | | + + + + + + + + + | Result panel 13 | + + + + + + + + + | Sp Gr Ur | 2025-01-01 | | >=1.030 | (missing) | (missing) | | Strip | 21:30:07 | [facility] | | | | + + + + + + + + + | Result panel 14 | + + + + + + + + + | Hgb Ur Ql | 2025-01-01 | | NEGATIVE | (missing) | (missing) | | Strip | 21:30:07 | [facility] | | | | + + + + + + + + + | Result panel 15 | + + + + + +-------+ + + | pH Ur Strip | 2025-01-01 | | 6.0 | (missing) | (missing) | | | 21:30:07 | [facility] | | | | | | | - | | | | | | | [facility] | | | | + + + +-------+ + + + + | Result panel 16 | + + + + + +-------+ + + | Prot Ur | 2025-01-01 | | 100 | (missing) | (missing) | | Strip-mCnc | 21:30:07 | [facility] | | | | + + + +-------+ + + + + | Result panel 17 | + + + + + + + + + | | 2025-01-01 | | NORMAL | (missing) | (missing) | | Urobilinogen | 21:30:07 | [facility] | | | | | Ur [facility] Strip-mCnc | | [facility] | | | | + + + + + + + + + | Result panel 18 | + + + + + + + + + | Nitrite Ur | 2025-01-01 | | POSITIVE | (missing) | (missing) | | Ql Strip | 21:30:07 | [facility] | | | | + + + + + + + + + | Result panel 19 | + + + + + + + + + | Leukocyte | 2025-01-01 | | NEGATIVE | (missing) | (missing) | | esterase Ur | 21:30:07 | [facility] | | | | | Ql Strip [facility] | | | | + + + + + + + + + | Result panel 20 | + + + + + +-------+ + + | RBC #/area | 2025-01-01 | | 0-1 | (missing) | (missing) | | UrnS HPF | :30: | [facility] | | | | + + + +-------+ + + + + | Result panel 21 | + + + + + +-------+ + + | WBC #/area | 2025-01-01 | | 2-3 | (missing) | (missing) | | UrnS HPF | 21:30:07 | [facility] | | | | + + + +-------+ + + + + | Result panel 22 | + + + + + + + + + | Epi Cells | 2025-01-01 | | SQUAMOUS 1+ | (missing) | (missing) | | #/area UrnS | 21:30:07 | [facility] | | | | | HPF [facility] | | | | + + + + + + + + + | Result panel 23 | + + + + + + + + + | Crystals | 2025-01-01 | | NONE SEEN | (missing) | (missing) | | UrnS Micro | 21:30:07 | [facility] | | | | + + + + + + + + + | Result panel 24 | + + + + + +------+ + + | Bacteria | 2025-01-01 | | 3+ | (missing) | (missing) | | #/area UrnS | :30:07 | [facility] | | | | | HPF [facility] | | | | + + + +------+ + + + + | Result panel 25 | + + + + + + + + + | Casts | 2025-01-01 | | NONE SEEN | (missing) | (missing) | | #/area UrnS | 21:30:07 | [facility] | | | | | LPF [facility] | | | | + + + + + + + + + | Result panel 26 | + + + + + +-------+ + + | Bacteria Ur | 2025-01-01 | | Yes | (missing) | (missing) | | Cult | 21:30:07 | [facility] | | | | + + + +-------+ + + + + | Result panel 27 | + + + + + + + + + | Urn Spec | 2025-01-01 | | CLEAN CATCH | (missing) | (missing) | | Collect Meth | :30:07 | [facility] | | | | | Ur [facility] | | | | + + + + + + + + + | Result panel 28 | + + + + + + + + + | Bacteria Ur | 2025-01-01 | | ESCHERICHIA | (missing) | (missing) | | Cult | 21:30:07 | [facility] | [facility] | | [facility] | | | | + + + + + + + + + | Result panel 29 | + + + + + + + + + | Color Ur | 2025-01-01 | | YELLOW | (missing) | (missing) | | Auto | 21:30:07 | [facility] | | | | + + + + + + + + + | Result panel 30 | + + + + + + + + + | Character | 2025-01-01 | | SL CLOUDY | (missing) | (missing) | | Ur | :30:07 | [facility] | | | | + + + + + + + + + | Result panel 31 | + + + + + + + + + | Glucose Ur | 2025-01-01 | | NEGATIVE | (missing) | (missing) | | Ql Strip | :30:07 | [facility] | | | | + + + + + + + + + | Result panel 32 | + + + + + + + + + | Skye Carvajal | 2025-01-01 | | POSITIVE | (missing) | (missing) | | Ql Strip | :: | [facility] | | | | + + + + + + + + + | Result panel 33 | + + + + + + + + + | Ketones Ur | 2025-01-01 | | NEGATIVE | (missing) | (missing) | | Ql Strip | :30:07 | [facility] | | | | + + + + + + + + + | Result panel 34 | + + + + + + + + + | Sp Gr Ur | 2025-01-01 | | >=1.030 | (missing) | (missing) | | Strip | 21:30:07 | [facility] | | | | + + + + + + + + + | Result panel 35 | + + + + + + + + + | Hgb Ur Ql | 2025-01-01 | | NEGATIVE | (missing) | (missing) | | Strip | 21:30:07 | [facility] | | | | + + + + + + + + + | Result panel 36 | + + + + + +-------+ + + | pH Ur Strip | 2025-01-01 | | 6.0 | (missing) | (missing) | | | 21:30:07 | [facility] | | | | + + + +-------+ + + + + | Result panel 37 | + + + + + +-------+ + + | Prot Ur | 2025-01-01 | | 100 | (missing) | (missing) | | Strip-mCnc | 21::07 | [facility] | | | | + + + +-------+ + + + + | Result panel 38 | + + + + + + + + + | | 2025-01-01 | | NORMAL | (missing) | (missing) | | Urobilinogen | 21:30:07 | [facility] | | | | | Ur [facility]-m[facility]nc | | [facility] | | | | + + + + + + + + + | Result panel 39 | + + + + + + + + + | Nitrite Ur | 2025-01-01 | | POSITIVE | (missing) | (missing) | | Ql Strip | 21:30:07 | [facility] | | | | + + + + + + + + + | Result panel 40 | + + + + + + + + + | Leukocyte | 2025-01-01 | | NEGATIVE | (missing) | (missing) | | esterase Ur | 21:30:07 | [facility] | | | | | Ql Strip [facility] | | | | + + + + + + + + + | Result panel 41 | + + + + + +-------+ + + | RBC #/area | 2025-01-01 | | 0-1 | (missing) | (missing) | | UrnS HPF | :30:07 | [facility] | | | | + + + +-------+ + + + + | Result panel 42 | + + + + + +-------+ + + | WBC #/area | 2025-01-01 | | 2-3 | (missing) | (missing) | | UrnS HPF | 21:30:07 | [facility] | | | | + + + +-------+ + + + + | Result panel 43 | + + + + + + + + + | Epi Cells | 2025-01-01 | | SQUAMOUS 1+ | (missing) | (missing) | | #/area UrnS | 21:30:07 | [facility] | | | | | [facility] | | | | + + + + + + + + + | Result panel 44 | + + + + + + + + + | Crystals | 2025-01-01 | | NONE SEEN | (missing) | (missing) | | UrnS Micro | 21:30:07 | [facility] | | | | + + + + + + + + + | Result panel 45 | + + + + + +------+ + + | Bacteria | 2025-01-01 | | 3+ | (missing) | (missing) | | #/area UrnS | :30:07 | [facility] | | | | + + + +------+ + + + + | Result panel 46 | + + + + + + + + + | Casts | 2025-01-01 | | NONE SEEN | (missing) | (missing) | | #/area UrnS | 21:30:07 | [facility] | | | | + + + + + + + + + | Result panel 47 | + + + + + +-------+ + + | Bacteria Ur | 2025-01-01 | | Yes | (missing) | (missing) | | Cult | 21:30:07 | [facility] | | | | + + + +-------+ + + + + | Result panel 48 | + + + + + + + + + | Urn Spec | 2025-01-01 | | CLEAN CATCH | (missing) | (missing) | | Collect Meth | 21:30:07 | [facility] | | [facility] | | | | + + + + + + + + + | Result panel 49 | + + + + + + + + + | Bacteria Ur | 2025-01-01 | | [facility] | (missing) | (missing) | | Cult | 21:30:07 | [facility] | | | | + + + + + + + + + | Result panel 50 | + + + + + + + + + | Color Ur | 2025-01-01 | | YELLOW | (missing) | (missing) | | Auto | 21:30:07 | [facility] | | | | + + + + + + + + + | Result panel 51 | + + + + + + + + + | Character | 2025-01-01 | | SL CLOUDY | (missing) | (missing) | | Ur | 21:30:07 | [facility] | | | | + + + + + + + + + | Result panel 52 | + + + + + + + + + | Glucose Ur | 2025-01-01 | | NEGATIVE | (missing) | (missing) | | Ql Strip | :30:07 | [facility] | | | | + + + + + + + + + | Result panel 53 | + + + + + + + + + | Skye Ur | 2025-01-01 | | POSITIVE | (missing) | (missing) | | Ql Strip | : | [facility] | | | | + + + + + + + + + | Result panel 54 | + + + + + + + + + | Ketones Ur | 2025-01-01 | | NEGATIVE | (missing) | (missing) | | Ql Strip | 30: | [facility] | | | | + + + + + + + + + | Result panel 55 | + + + + + + + + + | Sp Gr Ur | 2025-01-01 | | >=1.030 | (missing) | (missing) | | Strip | 21:30:07 | [facility] | | | | + + + + + + + + + | Result panel 56 | + + + + + + + + + | Hgb Ur Ql | 2025-01-01 | | NEGATIVE | (missing) | (missing) | | Strip | 21:30:07 | [facility] | | | | + + + + + + + + + | Result panel 57 | + + + + + +-------+ + + | pH Ur Strip | 2025-01-01 | | 6.0 | (missing) | (missing) | | | 21:30:07 | [facility] | | | | + + + +-------+ + + + + | Result panel 58 | + + + + + +-------+ + + | Prot Ur | 2025-01-01 | | 100 | (missing) | (missing) | | Strip-mCnc | ::07 | [facility] | | | | + + + +-------+ + + + + | Result panel 59 | + + + + + + + + + | | 2025-01-01 | | NORMAL | (missing) | (missing) | | Urobilinogen | 21:30:07 | [facility] | | | | | Ur | [facility] | | | | + + + + + + + + + | Result panel 60 | + + + + + + + + + | Nitrite Ur | 2025-01-01 | | POSITIVE | (missing) | (missing) | | Ql Strip | 21:30:07 | [facility] | | | | + + + + + + + + + | Result panel 61 | + + + + + + + + + | Leukocyte | 2025-01-01 | | NEGATIVE | (missing) | (missing) | | esterase Ur | 21:30:07 | [facility] | | | | | Ql Strip [facility] | | | | + + + + + + + + + | Result panel 62 | + + + + + +-------+ + + | RBC #/area | 2025-01-01 | | 0-1 | (missing) | (missing) | | UrnS HPF | 21:30:07 | [facility] | | | | + + + +-------+ + + + + | Result panel 63 | + + + + + +-------+ + + | WBC #/area | 2025-01-01 | | 2-3 | (missing) | (missing) | | UrnS HPF | 21:30:07 | [facility] | | | | + + + +-------+ + + + + | Result panel 64 | + + + + + + + + + | Epi Cells | 2025-01-01 | | SQUAMOUS 1+ | (missing) | (missing) | | #/area UrnS | 21:30:07 | [facility] | | | | | HPF [facility] | | | | + + + + + + + + + | Result panel 65 | + + + + + + + + + | Crystals | 2025-01-01 | | NONE SEEN | (missing) | (missing) | | UrnS Micro | 21:30:07 | [facility] | [facility] | | | | + + + + + + + + + | Result panel 66 | + + + + + +------+ + + | Bacteria | 2025-01-01 | | 3+ | (missing) | (missing) | | #/area UrnS | 21:30:07 | [facility] | | | | | HPF [facility] | | | | + + + +------+ + + + + | Result panel 67 | + + + + + + + + + | Casts | 2025-01-01 | | NONE SEEN | (missing) | (missing) | | #/area UrnS | 21:30:07 | [facility] | | | | | LPF [facility] | | | | + + + + + + + + + | Result panel 68 | + + + + + +-------+ + + | Bacteria Ur | 2025-01-01 | | Yes | (missing) | (missing) | | Cult | 21:30:07 | [facility] | | [facility] | | | | + + + +-------+ + + + + | Result panel 69 | + + + + + + + + + | Urn Spec | 2025-01-01 | | CLEAN CATCH | (missing) | (missing) | | Collect Meth | 21:30:07 | [facility] | | | | | Ur | [facility] | | | | + + + + + + + + + | Result panel 70 | + + + + + + + + + | Bacteria Ur | 2025-01-01 | | ESCHERICHIA | (missing) | (missing) | | Cult | 21:30:07 | [facility] | | | | + + + + + + + + + | Result panel 71 | + + + + + +--------+ + + | WBC # Bld | 2025-01-04 | | 9.03 | (missing) | (missing) | | Auto | 11:51:07 | [facility] | | | | + + + +--------+ + + + + | Result panel 72 | + + + + + +--------+ + + | RBC # Bld | 2025-01-04 | | 4.53 | (missing) | (missing) | | Auto | 11:51:07 | [facility] | | | | + + + +--------+ + + + + | Result panel 73 | + + + + + +--------+ + + | Hgb | 2025-01-04 | | 13.9 | (missing) | (missing) | | Bld-mCnc | 11:51:07 | [facility] | | | | + + + +--------+ + + + + | Result panel 74 | + + + + + +--------+ + + | Hct VFr.DF | 2025-01-04 | | 41.1 | (missing) | (missing) | | Bld Auto | 11:51:07 | [facility] | | | | + + + +--------+ + + + + | Result panel 75 | + + + + + +--------+ + + | RBC Auto | 2025-01-04 | | 90.7 | (missing) | (missing) | | | 11:51:07 | [facility] | | | | + + + +--------+ + + + + | Result panel 76 | + + + + + +--------+ + + | MCH RBC Qn | 2025-01-04 | | 30.7 | (missing) | (missing) | | Auto | 11:51:07 | [facility] | | | | + + + +--------+ + + + + | Result panel 77 | + + + + + +--------+ + + | MCHC RBC | 2025-01-04 | | 33.8 | (missing) | (missing) | | Auto-EntMCnc | 11:51:07 | [facility] | | | | + + + +--------+ + + + + | Result panel 78 | + + + + + +-------+ + + | Platelet # | 2025-01-04 | | 225 | (missing) | (missing) | | Bld Auto | 11:51:07 | [facility] | | | | + + + +-------+ + + + + | Result panel 79 | + + + + + +--------+ + + | Neutrophils | 2025-01-04 | | 69.0 | (missing) | (missing) | | NFr Bld | 11:51:07 | [facility] | | | | | Auto | [facility] | | | | + + + +--------+ + + + + | Result panel 80 | + + + + + +--------+ + + | Lymphocytes | 2025-01-04 | | 23.3 | (missing) | (missing) | | NFr Bld | 11:51:07 | [facility] | | | | | Auto | [facility] | | | | + + + +--------+ + + + + | Result panel 81 | + + + + + +-------+ + + | Monocytes | 2025-01-04 | | 4.3 | (missing) | (missing) | | NFr Bld Auto | 11:51:07 | [facility] | | | | + + + +-------+ + + + + | Result panel 82 | + + + + + +-------+ + + | Eosinophil | 2025-01-04 | | 2.1 | (missing) | (missing) | | NFr Bld Auto | 11:51:07 | [facility] | | | | + + + +-------+ + + + + | Result panel 83 | + + + + + +-------+ + + | Basophils | 2025-01-04 | | 0.7 | (missing) | (missing) | | NFr Bld Auto | 11:51:07 | [facility] | | | | + + + +-------+ + + + + | Result panel 84 | + + + + + +-------+---------+ + | Glucose | 2025-01-04 | | 220 | mg/dL | (missing) | | SerPl-mCnc | 11:51:07 | [facility] | | | | + + + +-------+---------+ + + + | Result panel 85 | + + + + + +------+---------+ + | BUN | 2025-01-04 | | 10 | mg/dL | (missing) | | SerPl-mCsusy | 11:51:07 | [facility] | | | | + + + +------+---------+ + + + | Result panel 86 | + + + + + +--------+---------+ + | Creat | 2025-01-04 | | 0.90 | mg/dL | (missing) | | SerPl-mCnc | 11:51:07 | [facility] | | | | + + + +--------+---------+ + + + | Result panel 87 | + + + + + +------+ + + | eGFRcr | 2025-01-04 | | 76 | (missing) | (missing) | | SerPlBld | 11:51:07 | [facility] | | | | | CKD-EPI 2020 | [facility] | | | | + + + +------+ + + + + | Result panel 88 | + + + + + +---------+ + + | BUN/Creat | 2025-01-04 | | 11.11 | (missing) | (missing) | | SerPl | 11:51:07 | [facility] | | | | + + + +---------+ + + + + | Result panel 89 | + + + + + +-------+ + + | Sodium | 2025-01-04 | | 139 | (missing) | (missing) | | Ser[facility] | 11:51:07 | [facility] | | | | + + + +-------+ + + + + | Result panel 90 | + + + + + +-------+ + + | Potassium | 2025-01-04 | | 4.0 | (missing) | (missing) | | SerPl-sCnc | 11:51:07 | [facility] | | | | + + + +-------+ + + + + | Result panel 91 | + + + + + +-------+ + + | Chloride | 2025-01-04 | | 102 | (missing) | (missing) | | SerPl-sCnc | 11:51:07 | [facility] | | | | + + + +-------+ + + + + | Result panel 92 | + + + + + +------+ + + | CO2 | 2025-01-04 | | 25 | (missing) | (missing) | | SerPl-sCnc | 11:51:07 | [facility] | | [facility] | | | | + + + +------+ + + + + | Result panel 93 | + + + + + +--------+ + + | Anion Gap | 2025-01-04 | | 16.0 | (missing) | (missing) | | SerPl | 11:51:07 | [facility] | | | | | Calculated.4 | [facility] | | | | + + + +--------+ + + + + | Result panel 94 | + + + + + +-------+---------+ + | Calcium | 2025-01-04 | | 9.6 | mg/dL | (missing) | | SerPl-mCnc | 11:51:07 | [facility] | | | | | [facility] | | | | + + + +-------+---------+ + + + | Result panel 95 | + + + + + +-------+ + + | Prot | 2025-01-04 | | 7.0 | (missing) | (missing) | | SerPl-mCnc | 11:51:07 | [facility] | | | | + + + +-------+ + + + + | Result panel 96 | + + + + + +-------+ + + | Albumin | 2025-01-04 | | 3.6 | (missing) | (missing) | | [facility] | 11:51:07 | [facility] | [facility] | | | | + + + +-------+ + + + + | Result panel 97 | + + + + + +-------+ + + | Globulin | 2025-01-04 | | 3.4 | (missing) | (missing) | | Ser-mCnc | 11:51:07 | [facility] | | | | + + + +-------+ + + + + | Result panel 98 | + + + + + +--------+ + + | | 2025-01-04 | | 1.06 | (missing) | (missing) | | Albumin/Glob | 11:51:07 | [facility] | | | | | SerPl | [facility] | | | | + + + +--------+ + + + + | Result panel 99 | + + + + + +-------+---------+ + | Bilirub | 2025-01-04 | | 0.2 | mg/dL | (missing) | | SerPl-mCnc | 11:51:07 | [facility] | | | | + + + +-------+---------+ + + + | Result panel 100 | + + + + + +------+ + + | AST | 2025-01-04 | | 57 | (missing) | (missing) | | [facility] | 11:51:07 | [facility] | | | | + + + +------+ + + + + | Result panel 101 | + + + + + +------+ + + | ALT | 2025-01-04 | | 73 | (missing) | (missing) | | SerPl-cCnc | 11:51:07 | [facility] | | | | + + + +------+ + + + + | Result panel 102 | + + + + + +-------+ + + | ALP | 2025-01-04 | | 108 | (missing) | (missing) | | SerPl-cCnc | 11:51:07 | [facility] | [facility] | | | | + + + +-------+ + + + + | Result panel 103 | + + + + + +--------+ + + | WBC # Bld | 2025-01-04 | | 9.03 | (missing) | (missing) | | Auto | 11:51:07 | [facility] | | | | + + + +--------+ + + + + | Result panel 104 | + + + + + +--------+ + + | RBC # Bld | 2025-01-04 | | 4.53 | (missing) | (missing) | | Auto | 11:51:07 | [facility] | | | | + + + +--------+ + + + + | Result panel 105 | + + + + + +--------+ + + | Hgb | 2025-01-04 | | 13.9 | (missing) | (missing) | | [facility] | 11:51:07 | [facility] | | | | + + + +--------+ + + + + | Result panel 106 | + + + + + +--------+ + + | Hct VFr.DF | 2025-01-04 | | 41.1 | (missing) | (missing) | | Bld Auto | 11:51:07 | [facility] | | | | + + + +--------+ + + + + | Result panel 107 | + + + + + +--------+ + + | RBC Auto | 2025-01-04 | | 90.7 | (missing) | (missing) | | | 11:51:07 | [facility] | | | | + + + +--------+ + + + + | Result panel 108 | + + + + + +--------+ + + | MCH RBC Qn | 2025-01-04 | | 30.7 | (missing) | (missing) | | Auto | 11:51:07 | [facility] | | | | + + + +--------+ + + + + | Result panel 109 | + + + + + +--------+ + + | MCHC RBC | 2025-01-04 | | 33.8 | (missing) | (missing) | | Auto-EntMCnc | 11:51:07 | [facility] | | | | + + + +--------+ + + + + | Result panel 110 | + + + + + +-------+ + + | Platelet # | 2025-01-04 | | 225 | (missing) | (missing) | | Bld Auto | 11:51:07 | [facility] | | | | + + + +-------+ + + + + | Result panel 111 | + + + + + +--------+ + + | Neutrophils | 2025-01-04 | | 69.0 | (missing) | (missing) | | NFr Bld | 11:51:07 | [facility] | | | | | Auto | [facility] | | | | + + + +--------+ + + + + | Result panel 112 | + + + + + +--------+ + + | Lymphocytes | 2025-01-04 | | 23.3 | (missing) | (missing) | | NFr Bld | 11:51:07 | [facility] | | | | | Auto | [facility] | | | | + + + +--------+ + + + + | Result panel 113 | + + + + + +-------+ + + | Monocytes | 2025-01-04 | | 4.3 | (missing) | (missing) | | NFr Bld Auto | 11:51:07 | [facility] | | | | + + + +-------+ + + + + | Result panel 114 | + + + + + +-------+ + + | Eosinophil | 2025-01-04 | | 2.1 | (missing) | (missing) | | NFr Bld Auto | 11:51:07 | [facility] | | | | + + + +-------+ + + + + | Result panel 115 | + + + + + +-------+ + + | Basophils | 2025-01-04 | | 0.7 | (missing) | (missing) | | NFr Bld Auto | 11:51:07 | [facility] | | | | + + + +-------+ + + + + | Result panel 116 | + + + + + +-------+---------+ + | Glucose | 2025-01-04 | | 220 | mg/dL | (missing) | | SerPl-mCnc | 11:51:07 | [facility] | | | | + + + +-------+---------+ + + + | Result panel 117 | + + + + + +------+---------+ + | BUN | 2025-01-04 | | 10 | mg/dL | (missing) | | Toval-mCsusy | 11:51:07 | [facility] | | | | + + + +------+---------+ + + + | Result panel 118 | + + + + + +--------+---------+ + | Creat | 2025-01-04 | | 0.90 | mg/dL | (missing) | | [facility] | 11:51:07 | [facility] | | | | + + + +--------+---------+ + + + | Result panel 119 | + + + + + +------+ + + | eGFRcr | 2025-01-04 | | 76 | (missing) | (missing) | | SerPlBld | 11:51:07 | [facility] | | | | | CKD-EPI 2020 | [facility] | | | | + + + +------+ + + + + | Result panel 120 | + + + + + +---------+ + + | BUN/Creat | 2025-01-04 | | 11.11 | (missing) | (missing) | | SerPl | 11:51:07 | [facility] | [facility] | | | | + + + +---------+ + + + + | Result panel 121 | + + + + + +-------+ + + | Sodium | 2025-01-04 | | 139 | (missing) | (missing) | | [facility] | 11:51:07 | [facility] | | | | + + + +-------+ + + + + | Result panel 122 | + + + + + +-------+ + + | Potassium | 2025-01-04 | | 4.0 | (missing) | (missing) | | SerPl-sCnc | 11:51:07 | [facility] | [facility] | | | | + + + +-------+ + + + + | Result panel 123 | + + + + + +-------+ + + | Chloride | 2025-01-04 | | 102 | (missing) | (missing) | | SerPl-sCnc | 11:51:07 | [facility] | | | | [facility] | | | | + + + +-------+ + + + + | Result panel 124 | + + + + + +------+ + + | CO2 | 2025-01-04 | | 25 | (missing) | (missing) | | SerPl-sCnc | 11:51:07 | [facility] | [facility] | | | | + + + +------+ + + + + | Result panel 125 | + + + + + +--------+ + + | Anion Gap | 2025-01-04 | | 16.0 | (missing) | (missing) | | SerPl | 11:51:07 | [facility] | | | | | Calculated.4 | [facility] | [facility] | | | | + + + +--------+ + + + + | Result panel 126 | + + + + + +-------+---------+ + | Calcium | 2025-01-04 | | 9.6 | mg/dL | (missing) | | SerPl-[facility] | 11:51:07 | [facility] | | | | | | [facility] | | | | + + + +-------+---------+ + + + | Result panel 127 | + + + + + +-------+ + + | Prot | 2025-01-04 | | 7.0 | (missing) | (missing) | | SerPl-mCsusy | 11:51:07 | [facility] | | | | + + + +-------+ + + + + | Result panel 128 | + + + + + +-------+ + + | Albumin | 2025-01-04 | | 3.6 | (missing) | (missing) | | [facility] | 11:51:07 | [facility] | [facility] | | | | + + + +-------+ + + + + | Result panel 129 | + + + + + +-------+ + + | Globulin | 2025-01-04 | | 3.4 | (missing) | (missing) | | Ser-Adrian | 11:51:07 | [facility] | | | [facility] | | | | + + + +-------+ + + + + | Result panel 130 | + + + + + +--------+ + + | | 2025-01-04 | | 1.06 | (missing) | (missing) | | Albumin/Glob | 11:51:07 | [facility] | | | | | SerPl | [facility] | | | | + + + +--------+ + + + + | Result panel 131 | + + + + + +-------+---------+ + | Bilirub | 2025-01-04 | | 0.2 | mg/dL | (missing) | | SerPl-mCnc | 11:51:07 | [facility] | | | | + + + +-------+---------+ + + + | Result panel 132 | + + + + + +------+ + + | AST | 2025-01-04 | | 57 | (missing) | (missing) | | SerPl-cCnc | 11:51:07 | [facility] | | | | + + + +------+ + + + + | Result panel 133 | + + + + + +------+ + + | ALT | 2025-01-04 | | 73 | (missing) | (missing) | | [facility] | 11:51:07 | [facility] | | | | + + + +------+ + + + + | Result panel 134 | + + + + + +-------+ + + | ALP | 2025-01-04 | | 108 | (missing) | (missing) | | SerPl-cCn | 11:51:07 | [facility] | | | | + + + +-------+ + + + + | Result panel 135 | + + + + + +--------+ + + | WBC # Bld | 2025-01-29 | | 9.58 | (missing) | (missing) | | Auto | :52:07 | [facility] | | | | + + + +--------+ + + + + | Result panel 136 | + + + + + +--------+ + + | Lymphocytes | 2025-01-29 | | 19.2 | (missing) | (missing) | | NFr Bld | :52:07 | [facility] | | [facility] | | | | + + + +--------+ + + + + | Result panel 137 | + + + + + +-------+ + + | Monocytes | 2025-01-29 | | 5.5 | (missing) | (missing) | | NFr Bld Auto | 22:52:07 | [facility] | | | | + + + +-------+ + + + + | Result panel 138 | + + + + + +-------+ + + | Eosinophil | 2025-01-29 | | 2.7 | (missing) | (missing) | | NFr Bld Auto | 22:52:07 | [facility] | | | | + + + +-------+ + + + + | Result panel 139 | + + + + + +-------+ + + | Basophils | 2025-01-29 | | 0.5 | (missing) | (missing) | | NFr Bld Auto | 22:52:07 | [facility] | | | | + + + +-------+ + + + + | Result panel 140 | + + + + + +-------+---------+ + | Glucose | 2025-01-29 | | 225 | mg/dL | (missing) | | Wolf | 22:52:07 | [facility] | | | | + + + +-------+---------+ + + + | Result panel 141 | + + + + + +------+---------+ + | BUN | 2025-01-29 | | 16 | mg/dL | (missing) | | Wolf | 22:52:07 | [facility] | | | | + + + +------+---------+ + + + | Result panel 142 | + + + + + +--------+ + + | WBC # Bld | 2025-01-29 | | 9.58 | (missing) | (missing) | | Auto | 22:52:07 | [facility] | | | | + + + +--------+ + + + + | Result panel 143 | + + + + + +--------+ + + | RBC # Bld | 2025-01-29 | | 3.94 | (missing) | (missing) | | Auto | 22:52:07 | [facility] | | | | + + + +--------+ + + + + | Result panel 144 | + + + + + +--------+ + + | Hgb | 2025-01-29 | | 12.0 | (missing) | (missing) | | Bld-mCnc | 22:52:07 | [facility] | | | | + + + +--------+ + + + + | Result panel 145 | + + + + + +--------+ + + | Hct VFr.DF | 2025-01-29 | | 37.1 | (missing) | (missing) | | Bld Auto | 22:52:07 | [facility] | | | | + + + +--------+ + + + + | Result panel 146 | + + + + + +--------+ + + | RBC Auto | 2025-01-29 | | 94.2 | (missing) | (missing) | | | 22:52:07 | [facility] | | | | + + + +--------+ + + + + | Result panel 147 | + + + + + +--------+ + + | MCH RBC Qn | 2025-01-29 | | 30.5 | (missing) | (missing) | | Auto | 22:52:07 | [facility] | | | | + + + +--------+ + + + + | Result panel 148 | + + + + + +--------+---------+ + | Creat | 2025-01-29 | | 0.94 | mg/dL | (missing) | | SerPl-mCnc | 22:52:07 | [facility] | | | | + + + +--------+---------+ + + + | Result panel 149 | + + + + + +--------+ + + | [facility] RBC | 2025-01-29 | | 32.3 | (missing) | (missing) | | [facility] | 22:52:07 | [facility] | | | | + + + +--------+ + + + + | Result panel 150 | + + + + + +-------+ + + | Platelet # | 2025-01-29 | | 251 | (missing) | (missing) | | Bld Auto | 22:52:07 | [facility] | | | | + + + +-------+ + + + + | Result panel 151 | + + + + + +--------+ + + | Neutrophils | 2025-01-29 | | 71.0 | (missing) | (missing) | | NFr Bld | 22:52:07 | [facility] | | | | [facility] | | | | + + + +--------+ + + + + | Result panel 152 | + + + + + +--------+ + + | Lymphocytes | 2025-01-29 | | 19.2 | (missing) | (missing) | | NFr Bld | 22:52:07 | [facility] | | | | [facility] | | | | + + + +--------+ + + + + | Result panel 153 | + + + + + +-------+ + + | Monocytes | 2025-01-29 | | 5.5 | (missing) | (missing) | | NFr Bld Auto | 22:52:07 | [facility] | | | | + + + +-------+ + + + + | Result panel 154 | + + + + + +-------+ + + | Eosinophil | 2025-01-29 | | 2.7 | (missing) | (missing) | | NFr Bld Auto | 22:52:07 | [facility] | | | + + + +-------+ + + + + | Result panel 155 | + + + + + +-------+ + + | Basophils | 2025-01-29 | | 0.5 | (missing) | (missing) | | NFr Bld Auto | 22:52:07 | [facility] | | | | + + + +-------+ + + + + | Result panel 156 | + + + + + +-------+---------+ + | Glucose | 2025-01-29 | | 225 | mg/dL | (missing) | | [facility] | 22:52:07 | [facility] | | | | + + + +-------+---------+ + + + | Result panel 157 | + + + + + +------+---------+ + | BUN | 2025-01-29 | | 16 | mg/dL | (missing) | | Wolf | 22:52:07 | [facility] | | | + + + +------+---------+ + + + | Result panel 158 | + + + + + +--------+---------+ + | Creat | 2025-01-29 | | 0.94 | mg/dL | (missing) | | SerPl-m[facility]nc | 22:52:07 | [facility] | | | | + + + +--------+---------+ + + + | Result panel 159 | + + + + + +------+ + + | eGFRcr | 2025-01-29 | | 72 | (missing) | (missing) | | SerPlBld | 22:52:07 | [facility] | | | | | CKD-EPI 2020 [facility] | | | | + + + +------+ + + + + | Result panel 160 | + + + + + +------+ + + | eGFRcr | 2025-01-29 | | 72 | (missing) | (missing) | | SerPlBld | 22:52:07 | [facility] | | | | | CKD-EPI 2020 [facility] | | | | + + + +------+ + + + + | Result panel 161 | + + + + + +---------+ + + | BUN/Creat | 2025-01-29 | | 17.02 | (missing) | (missing) | | SerPl | 22:52:07 | [facility] | | | | + + + +---------+ + + + + | Result panel 162 | + + + + + +-------+ + + | Sodium | 2025-01-29 | | 139 | (missing) | (missing) | | [facility] | 22:52:07 | [facility] | [facility] | | | | + + + +-------+ + + + + | Result panel 163 | + + + + + +-------+ + + | Potassium | 2025-01-29 | | 3.7 | (missing) | (missing) | | SerPl-sCnc | 22:52:07 | [facility] | | | | + + + +-------+ + + + + | Result panel 164 | + + + + + +-------+ + + | Chloride | 2025-01-29 | | 102 | (missing) | (missing) | | SerPl-sCnc | 22:52:07 | [facility] | | | | + + + +-------+ + + + + | Result panel 165 | + + + + + +------+ + + | CO2 | 2025-01-29 | | 29 | (missing) | (missing) | | SerPl-sCnc | 22:52:07 | [facility] | | | | + + + +------+ + + + + | Result panel 166 | + + + + + +--------+ + + | Anion Gap | 2025-01-29 | | 11.7 | (missing) | (missing) | | SerPl | 22:52:07 | [facility] | | | | | Calculated.4 | [facility] | | | | + + + +--------+ + + + + | Result panel 167 | + + + + + +-------+---------+ + | Calcium | 2025-01-29 | | 8.8 | mg/dL | (missing) | | SerPl-m[facility]nc | 22:52:07 | [facility] | | | | + + + +-------+---------+ + + + | Result panel 168 | + + + + + +-------+ + + | Prot | 2025-01-29 | | 6.6 | (missing) | (missing) | | SerPl-m[facility]nc | 22:52:07 | [facility] | | | | + + + +-------+ + + + + | Result panel 169 | + + + + + +-------+ + + | Albumin | 2025-01-29 | | 3.4 | (missing) | (missing) | | SerPl-[facility] | 22:52:07 | [facility] | | | | + + + +-------+ + + + + | Result panel 170 | + + + + + +---------+ + + | BUN/Creat | 2025-01-29 | | 17.02 | (missing) | (missing) | | SerPl | 22:52:07 | [facility] | | | | + + + +---------+ + + + + | Result panel 171 | + + + + + +-------+ + + | Globulin | 2025-01-29 | | 3.2 | (missing) | (missing) | | Ser-[facility] | 22:52:07 | [facility] | | | | + + + +-------+ + + + + | Result panel 172 | + + + + + +--------+ + + | | 2025-01-29 | | 1.06 | (missing) | (missing) | | Albumin/Glob | 22:52:07 | [facility] | | | | | SerPl | [facility] | | | | + + + +--------+ + + + + | Result panel 173 | + + + + + +-------+---------+ + | Bilirub | 2025-01-29 | | 0.2 | mg/dL | (missing) | | SerPl-m[facility]nc | 22:52:07 | [facility] | | | | + + + +-------+---------+ + + + | Result panel 174 | + + + + + +------+ + + | AST | 2025-01-29 | | 16 | (missing) | (missing) | | SerPl-[facility] | 22:52:07 | [facility] | | | | + + + +------+ + + + + | Result panel 175 | + + + + + +------+ + + | ALT | 2025-01-29 | | 37 | (missing) | (missing) | | SerPl-cCn | 22:52:07 | [facility] | | | | + + + +------+ + + + + | Result panel 176 | + + + + + +-------+ + + | ALP | 2025-01-29 | | 118 | (missing) | (missing) | | SerPl-c[facility]nc | 22:52:07 | [facility] | | | | + + + +-------+ + + + + | Result panel 177 | + + + + + +-------+ + + | Troponin I | 2025-01-29 | | 7.5 | (missing) | (missing) | | SerPl | 22:52:07 | [facility] | | | | | HS-[facility]usy [facility] | | | | + + + +-------+ + + + + | Result panel 178 | + + + + + +-------+ + + | Sodium | 2025-01-29 | | 139 | (missing) | (missing) | | SerPl-s[facility]nc | 22:52:07 | [facility] | | | | + + + +-------+ + + + + | Result panel 179 | + + + + + +--------+ + + | RBC # Bld | 2025-01-29 | | 3.94 | (missing) | (missing) | | Auto | 22:52:07 | [facility] | | | | + + + +--------+ + + + + | Result panel 180 | + + + + + +-------+ + + | Potassium | 2025-01-29 | | 3.7 | (missing) | (missing) | | SerPl-sCn | 22:52:07 | [facility] | | | | + + + +-------+ + + + + | Result panel 181 | + + + + + +-------+ + + | Chloride | 2025-01-29 | | 102 | (missing) | (missing) | | SerPl-sCnc | 22:52:07 | [facility] | | | | + + + +-------+ + + + + | Result panel 182 | + + + + + +------+ + + | CO2 | 2025-01-29 | | 29 | (missing) | (missing) | | SerPl-sCnc | 22:52:07 | [facility] | | | | + + + +------+ + + + + | Result panel 183 | + + + + + +--------+ + + | Anion Gap | 2025-01-29 | | 11.7 | (missing) | (missing) | | SerPl | 22:52:07 | [facility] | | | | | Calculated.4 [facility] | | | | + + + +--------+ + + + + | Result panel 184 | + + + + + +-------+---------+ + | Calcium | 2025-01-29 | | 8.8 | mg/dL | (missing) | | SerPl-m[facility]nc | 22:52:07 | [facility] | | | | + + + +-------+---------+ + + + | Result panel 185 | + + + + + +-------+ + + | Prot | 2025-01-29 | | 6.6 | (missing) | (missing) | | Wolf | 22:52:07 | [facility] | | | | + + + +-------+ + + + + | Result panel 186 | + + + + + +-------+ + + | Albumin | 2025-01-29 | | 3.4 | (missing) | (missing) | | SerPdanay-Adrian | 22:52:07 | [facility] | | | | + + + +-------+ + + + + | Result panel 187 | + + + + + +-------+ + + | Globulin | 2025-01-29 | | 3.2 | (missing) | (missing) | | Ser-[facility] | 22:52:07 | [facility] | | | | + + + +-------+ + + + + | Result panel 188 | + + + + + +--------+ + + | | 2025-01-29 | | 1.06 | (missing) | (missing) | | Albumin/Glob | 22:52:07 | [facility] | | | | | SerPl [facility] | | | | + + + +--------+ + + + + | Result panel 189 | + + + + + +-------+---------+ + | Bilirub | 2025-01-29 | | 0.2 | mg/dL | (missing) | | SerPl-m[facility]nc | 22:52:07 | [facility] | | | | + + + +-------+---------+ + + + | Result panel 190 | + + + + + +--------+ + + | Hgb | 2025-01-29 | | 12.0 | (missing) | (missing) | | Bld-mCnc | 22:52:07 | [facility] | | | | + + + +--------+ + + + + | Result panel 191 | + + + + + +------+ + + | AST | 2025-01-29 | | 16 | (missing) | (missing) | | SerPl-cCnc | 22:52:07 | [facility] | | | | + + + +------+ + + + + | Result panel 192 | + + + + + +------+ + + | ALT | 2025-01-29 | | 37 | (missing) | (missing) | | SerPl-cCnc | 22:52:07 | [facility] | | | | + + + +------+ + + + + | Result panel 193 | + + + + + +-------+ + + | ALP | 2025-01-29 | | 118 | (missing) | (missing) | | SerPl-cCnc | 22:52:07 | [facility] | | | | + + + +-------+ + + + + | Result panel 194 | + + + + + +-------+ + + | Troponin I | 2025-01-29 | | 7.5 | (missing) | (missing) | | SerPl | 22:52:07 | [facility] | | | | | HS-[facility]nc [facility] | | | | + + + +-------+ + + + + | Result panel 195 | + + + + + +--------+ + + | WBC # Bld | 2025-01-29 | | 9.58 | (missing) | (missing) | | Auto | 22:52:07 | [facility] | | | | + + + +--------+ + + + + | Result panel 196 | + + + + + +--------+ + + | RBC # Bld | 2025-01-29 | | 3.94 | (missing) | (missing) | | Auto | 22:52:07 | [facility] | | | | + + + +--------+ + + + + | Result panel 197 | + + + + + +--------+ + + | Hgb | 2025-01-29 | | 12.0 | (missing) | (missing) | | Bld-mCnc | 22:52:07 | [facility] | | | | + + + +--------+ + + + + | Result panel 198 | + + + + + +--------+ + + | Hct VFr.DF | 2025-01-29 | | 37.1 | (missing) | (missing) | | Bld Auto | 22:52:07 | [facility] | | | | + + + +--------+ + + + + | Result panel 199 | + + + + + +--------+ + + | RBC Auto | 2025-01-29 | | 94.2 | (missing) | (missing) | | | 22:52:07 | [facility] | | | | + + + +--------+ + + + + | Result panel 200 | + + + + + +--------+ + + | MCH RBC Qn | 2025-01-29 | | 30.5 | (missing) | (missing) | | Auto | 22:52:07 | [facility] | | | | + + + +--------+ + + + + | Result panel 201 | + + + + + +--------+ + + | Hct VFr.DF | 2025-01-29 | | 37.1 | (missing) | (missing) | | Bld Auto | :52:07 | [facility] | | | | + + + +--------+ + + + + | Result panel 202 | + + + + + +--------+ + + | MCHC RBC | 2025-01-29 | | 32.3 | (missing) | (missing) | | Auto-[facility] | 22:52:07 | [facility] | | | | + + + +--------+ + + + + | Result panel 203 | + + + + + +-------+ + + | Platelet # | 2025-01-29 | | 251 | (missing) | (missing) | | Bld Auto | 22:52:07 | [facility] | | | | + + + +-------+ + + + + | Result panel 204 | + + + + + +--------+ + + | Neutrophils | 2025-01-29 | | 71.0 | (missing) | (missing) | | NFr Bld | 22:52:07 | [facility] | | | | | Auto | [facility] | | | | + + + +--------+ + + + + | Result panel 205 | + + + + + +--------+ + + | Lymphocytes | 2025-01-29 | | 19.2 | (missing) | (missing) | | NFr Bld | 22:52:07 | [facility] | | | | | Auto | [facility] | | | | + + + +--------+ + + + + | Result panel 206 | + + + + + +-------+ + + | Monocytes | 2025-01-29 | | 5.5 | (missing) | (missing) | | NFr Bld Auto | 22:52:07 | [facility] | | | | + + + +-------+ + + + + | Result panel 207 | + + + + + +-------+ + + | Eosinophil | 2025-01-29 | | 2.7 | (missing) | (missing) | | NFr Bld Auto | 22:52:07 | [facility] | | | | + + + +-------+ + + + + | Result panel 208 | + + + + + +-------+ + + | Basophils | 2025-01-29 | | 0.5 | (missing) | (missing) | | NFr Tawana Auto | 22:52:07 | [facility] | | | | + + + +-------+ + + + + | Result panel 209 | + + + + + +-------+---------+ + | Glucose | 2025-01-29 | | 225 | mg/dL | (missing) | | SerPl-mCnc | 22:52:07 | [facility] | | | | + + + +-------+---------+ + + + | Result panel 210 | + + + + + +------+---------+ + | BUN | 2025-01-29 | | 16 | mg/dL | (missing) | | Wolf | 22:52:07 | [facility] | | | | + + + +------+---------+ + + + | Result panel 211 | + + + + + +--------+---------+ + | Creat | 2025-01-29 | | 0.94 | mg/dL | (missing) | | SerPdanay-Adrian | 22:52:07 | [facility] | | | | + + + +--------+---------+ + + + | Result panel 212 | + + + + + +--------+ + + | RBC Auto | 2025-01-29 | | 94.2 | (missing) | (missing) | | | 22:52:07 | [facility] | | | | + + + +--------+ + + + + | Result panel 213 | + + + + + +------+ + + | eGFRcr | 2025-01-29 | | 72 | (missing) | (missing) | | SerPlBld | 22:52:07 | [facility] | | | | | CKD-EPI 2020 | | - | [facility] | | | [facility] | | | | + + + +------+ + + + + | Result panel 214 | + + + + + +---------+ + + | BUN/Creat | 2025-01-29 | | 17.02 | (missing) | (missing) | | SerPl | 22:52:07 | [facility] | | | | + + + +---------+ + + + + | Result panel 215 | + + + + + +-------+ + + | Sodium | 2025-01-29 | | 139 | (missing) | (missing) | | SerPl-sCnc | 22:52:07 | [facility] | | | | + + + +-------+ + + + + | Result panel 216 | + + + + + +-------+ + + | Potassium | 2025-01-29 | | 3.7 | (missing) | (missing) | | SerPl-sCnc | 22:52:07 | [facility] | | | | + + + +-------+ + + + + | Result panel 217 | + + + + + +-------+ + + | Chloride | 2025-01-29 | | 102 | (missing) | (missing) | | SerPl-sCnc | 22:52:07 | [facility] | | | | + + + +-------+ + + + + | Result panel 218 | + + + + + +------+ + + | CO2 | 2025-01-29 | | 29 | (missing) | (missing) | | SerPl-sCnc | 22:52:07 | [facility] | | | | + + + +------+ + + + + | Result panel 219 | + + + + + +--------+ + + | Anion Gap | 2025-01-29 | | 11.7 | (missing) | (missing) | | SerPl | 22:52:07 | [facility] | | | | | Calculated.4 | [facility] | | | | + + + +--------+ + + + + | Result panel 220 | + + + + + +-------+---------+ + | Calcium | 2025-01-29 | | 8.8 | mg/dL | (missing) | | SerPl-mCnc | 22:52:07 | [facility] | | | | + + + +-------+---------+ + + + | Result panel 221 | + + + + + +-------+ + + | Prot | 2025-01-29 | | 6.6 | (missing) | (missing) | | [facility] | 22:52:07 | [facility] | | | | + + + +-------+ + + + + | Result panel 222 | + + + + + +-------+ + + | Albumin | 2025-01-29 | | 3.4 | (missing) | (missing) | | SerPl-mCnc | 22:52:07 | [facility] | | | | + + + +-------+ + + + + | Result panel 223 | + + + + + +--------+ + + | MCH RBC Qn | 2025-01-29 | | 30.5 | (missing) | (missing) | | Auto | :52:07 | [facility] | | | | + + + +--------+ + + + + | Result panel 224 | + + + + + +-------+ + + | Globulin | 2025-01-29 | | 3.2 | (missing) | (missing) | | Ser-mCnc | 22:52:07 | [facility] | | | | + + + +-------+ + + + + | Result panel 225 | + + + + + +--------+ + + | | 2025-01-29 | | 1.06 | (missing) | (missing) | | Albumin/Glob | 22:52:07 | [facility] | | | | [facility]Pl [facility] | | | | + + + +--------+ + + + + | Result panel 226 | + + + + + +-------+---------+ + | Bilirub | 2025-01-29 | | 0.2 | mg/dL | (missing) | | SerPl-[facility] | 22:52:07 | [facility] | | | | + + + +-------+---------+ + + + | Result panel 227 | + + + + + +------+ + + | AST | 2025-01-29 | | 16 | (missing) | (missing) | | SerPl-cCn | 22:52:07 | [facility] | | | | + + + +------+ + + + + | Result panel 228 | + + + + + +------+ + + | ALT | 2025-01-29 | | 37 | (missing) | (missing) | | Ser[facility] | 22:52:07 | [facility] | | | | + + + +------+ + + + + | Result panel 229 | + + + + + +-------+ + + | ALP | 2025-01-29 | | 118 | (missing) | (missing) | | SerPl-cCnc | 22:52:07 | [facility] | | | | + + + +-------+ + + + + | Result panel 230 | + + + + + +-------+ + + | Troponin I | 2025-01-29 | | 7.5 | (missing) | (missing) | | SerPl | 22:52:07 | [facility] | | | | | HS-[facility] | | | | + + + +-------+ + + + + | Result panel 231 | + + + + + +--------+ + + | WBC # Bld | 2025-01-29 | | 9.58 | (missing) | (missing) | | Auto | 22:52:07 | [facility] | | | | + + + +--------+ + + + + | Result panel 232 | + + + + + +--------+ + + | RBC # Bld | 2025-01-29 | | 3.94 | (missing) | (missing) | | Auto | 22:52:07 | [facility] | | | | + + + +--------+ + + + + | Result panel 233 | + + + + + +--------+ + + | Hgb | 2025-01-29 | | 12.0 | (missing) | (missing) | | Bld-mCnc | 22:52:07 | [facility] | | | | + + + +--------+ + + + + | Result panel 234 | + + + + + +--------+ + + | MCHC RBC | 2025-01-29 | | 32.3 | (missing) | (missing) | | Auto-EntMCnc | 22:52:07 | [facility] | | | | + + + +--------+ + + + + | Result panel 235 | + + + + + +--------+ + + | Hct VFr.DF | 2025-01-29 | | 37.1 | (missing) | (missing) | | Bld Auto | 22:52:07 | [facility] | | | | + + + +--------+ + + + + | Result panel 236 | + + + + + +--------+ + + | RBC Auto | 2025-01-29 | | 94.2 | (missing) | (missing) | | | 22:52:07 | [facility] | | | | + + + +--------+ + + + + | Result panel 237 | + + + + + +--------+ + + | MCH RBC Qn | 2025-01-29 | | 30.5 | (missing) | (missing) | | Auto | 22:52:07 | [facility] | | | | + + + +--------+ + + + + | Result panel 238 | + + + + + +--------+ + + | MCHC RBC | 2025-01-29 | | 32.3 | (missing) | (missing) | | Auto-EntMCnc | 22:52:07 | [facility] | | | | + + + +--------+ + + + + | Result panel 239 | + + + + + +-------+ + + | Platelet # | 2025-01-29 | | 251 | (missing) | (missing) | | Bld Auto | 22:52:07 | [facility] | | | | + + + +-------+ + + + + | Result panel 240 | + + + + + +--------+ + + | Neutrophils | 2025-01-29 | | 71.0 | (missing) | (missing) | | NFr Bld | 22:52:07 | [facility] | | | | + + + +--------+ + + + + | Result panel 241 | + + + + + +--------+ + + | Lymphocytes | 2025-01-29 | | 19.2 | (missing) | (missing) | | NFr Bld | 22:52:07 | [facility] | | | | + + + +--------+ + + + + | Result panel 242 | + + + + + +-------+ + + | Monocytes | 2025-01-29 | | 5.5 | (missing) | (missing) | | NFr Bld Auto | 22:52:07 | [facility] | | | | + + + +-------+ + + + + | Result panel 243 | + + + + + +-------+ + + | Eosinophil | 2025-01-29 | | 2.7 | (missing) | (missing) | | NFr Bld Auto | 22:52:07 | [facility] | | | | + + + +-------+ + + + + | Result panel 244 | + + + + + +-------+ + + | Basophils | 2025-01-29 | | 0.5 | (missing) | (missing) | | NFr Bld Auto | 22:52:07 | [facility] | | | | + + + +-------+ + + + + | Result panel 245 | + + + + + +-------+ + + | Platelet # | 2025-01-29 | | 251 | (missing) | (missing) | | Bld Auto | 22:52:07 | [facility] | | | | + + + +-------+ + + + + | Result panel 246 | + + + + + +-------+---------+ + | Glucose | 2025-01-29 | | 225 | mg/dL | (missing) | | SerPl-mCnc | 22:52:07 | [facility] | | | | + + + +-------+---------+ + + + | Result panel 247 | + + + + + +------+---------+ + | BUN | 2025-01-29 | | 16 | mg/dL | (missing) | | Wolf | 22:52:07 | [facility] | | | | + + + +------+---------+ + + + | Result panel 248 | + + + + + +--------+---------+ + | Creat | 2025-01-29 | | 0.94 | mg/dL | (missing) | | [facility] | 22:52:07 | [facility] | | | | + + + +--------+---------+ + + + | Result panel 249 | + + + + + +------+ + + | eGFRcr | 2025-01-29 | | 72 | (missing) | (missing) | | SerPlBld | 22:52:07 | [facility] | | | | | CKD-EPI 2020 | [facility] | | | | + + + +------+ + + + + | Result panel 250 | + + + + + +---------+ + + | BUN/Creat | 2025-01-29 | | 17.02 | (missing) | (missing) | | SerPl | 22:52:07 | [facility] | | | | + + + +---------+ + + + + | Result panel 251 | + + + + + +-------+ + + | Sodium | 2025-01-29 | | 139 | (missing) | (missing) | | SerPl-sCnc | 22:52:07 | [facility] | | | | + + + +-------+ + + + + | Result panel 252 | + + + + + +-------+ + + | Potassium | 2025-01-29 | | 3.7 | (missing) | (missing) | | SerPl-sCnc | 22:52:07 | [facility] | | | | + + + +-------+ + + + + | Result panel 253 | + + + + + +-------+ + + | Chloride | 2025-01-29 | | 102 | (missing) | (missing) | | [facility] | 22:52:07 | [facility] | | | | + + + +-------+ + + + + | Result panel 254 | + + + + + +------+ + + | CO2 | 2025-01-29 | | 29 | (missing) | (missing) | | SerPl-sCnc | 22:52:07 | [facility] | | | | + + + +------+ + + + + | Result panel 255 | + + + + + +--------+ + + | Anion Gap | 2025-01-29 | | 11.7 | (missing) | (missing) | | SerPl | 22:52:07 | [facility] | | | | | Calculated.4 | [facility] | | | | + + + +--------+ + + + + | Result panel 256 | + + + + + +--------+ + + | Neutrophils | 2025-01-29 | | 71.0 | (missing) | (missing) | | NFr Bld | 22:52:07 | [facility] | | | | | Auto | [facility] | | | | + + + +--------+ + + + + | Result panel 257 | + + + + + +-------+---------+ + | Calcium | 2025-01-29 | | 8.8 | mg/dL | (missing) | | SerPl-mCnc | 22:52:07 | [facility] | | | | + + + +-------+---------+ + + + | Result panel 258 | + + + + + +-------+ + + | Prot | 2025-01-29 | | 6.6 | (missing) | (missing) | | [facility] | 22:52:07 | [facility] | | | | + + + +-------+ + + + + | Result panel 259 | + + + + + +-------+ + + | Albumin | 2025-01-29 | | 3.4 | (missing) | (missing) | | SerPl-mCsusy | 22:52:07 | [facility] | | | | + + + +-------+ + + + + | Result panel 260 | + + + + + +-------+ + + | Globulin | 2025-01-29 | | 3.2 | (missing) | (missing) | | [facility] | 22:52:07 | [facility] | | | | + + + +-------+ + + + + | Result panel 261 | + + + + + +--------+ + + | | 2025-01-29 | | 1.06 | (missing) | (missing) | | Albumin/Glob | 22:52:07 | [facility] | | | | | Ser[facility] | | | | + + + +--------+ + + + + | Result panel 262 | + + + + + +-------+---------+ + | Bilirub | 2025-01-29 | | 0.2 | mg/dL | (missing) | | SerPl-mCnc | 22:52:07 | [facility] | | | | + + + +-------+---------+ + + + | Result panel 263 | + + + + + +------+ + + | AST | 2025-01-29 | | 16 | (missing) | (missing) | | SerPl-cCnc | 22:52:07 | [facility] | | | | + + + +------+ + + + + | Result panel 264 | + + + + + +------+ + + | ALT | 2025-01-29 | | 37 | (missing) | (missing) | | SerPl-cCnc | 22:52:07 | [facility] | | | | + + + +------+ + + + + | Result panel 265 | + + + + + +-------+ + + | ALP | 2025-01-29 | | 118 | (missing) | (missing) | | SerPl-cCnc | 22:52:07 | [facility] | | | | + + + +-------+ + + + + | Result panel 266 | + + + + + +-------+ + + | Troponin I | 2025-01-29 | | 7.5 | (missing) | (missing) | | SerPl | 22:52:07 | [facility] | | | | | [facility] | | | | + + + +-------+ + + Social History +--------+ + + | date | description | facility | +--------+ + + Vital Signs + + + +---------+ | date | measurement | value | units | + + + +---------+ | 2024-12-20 00:00 | BMI | 45.4 | kg/m2 | + + + +---------+ | 2024-12-20 00:00 | BP_diastolic | 88 | mmHg | + + + +---------+ | 2024-12-20 00:00 | BP_systolic | 164 | mmHg | + + + +---------+ | 2024-12-20 00:00 | heart_rate | 77 | /min | + + + +---------+ | 2024-12-20 00:00 | height_metric | 162.56 | cm | + + + +---------+ | 2024-12-20 00:00 | height_standard | 64 | in | + + + +---------+ | 2024-12-20 00:00 | o2_saturation | 94 | % | + + + +---------+ | 2024-12-20 00:00 | respiration_rate | 19 | /min | + + + +---------+ | 2024-12-20 00:00 | temperature_metric | 37.06 | C | | | | | | + + + +---------+ | 2024-12-20 00:00 | | 98.7 | F | | | temperature_standar | | | | | d | | | + + + +---------+ | 2024-12-20 00:00 | weight_metric | 119.9 | kg | + + + +---------+ | 2024-12-20 00:00 | weight_standard | 264.34 | lb | + + + +---------+ | 2025-01-01 00:00 | BMI | 45.9 | kg/m2 | + + + +---------+ | 2025-01-01 00:00 | BP_diastolic | 62 | mmHg | + + + +---------+ | 2025-01-01 00:00 | BP_systolic | 148 | mmHg | + + + +---------+ | 2025-01-01 00:00 | heart_rate | 81 | /min | + + + +---------+ | 2025-01-01 00:00 | height_metric | 162.56 | cm | + + + +---------+ | 2025-01-01 00:00 | height_standard | 64 | in | + + + +---------+ | 2025-01-01 00:00 | o2_saturation | 100 | % | + + + +---------+ | 2025-01-01 00:00 | respiration_rate | 20 | /min | + + + +---------+ | 2025-01-01 00:00 | temperature_metric | 36.5 | C | | | | | | + + + +---------+ | 2025-01-01 00:00 | | 97.7 | F | | | temperature_standar | | | | | d | | | + + + +---------+ | 2025-01-01 00:00 | weight_metric | 121.299 | kg | + + + +---------+ | 2025-01-01 00:00 | weight_metric | 121.3 | kg | + + + +---------+ | 2025-01-01 00:00 | weight_standard | 267.418 | lb | + + + +---------+ | 2025-01-01 00:00 | weight_standard | 267.42 | lb | + + + +---------+ | 2025-01-04 00:00 | BMI | 45.9 | kg/m2 | + + + +---------+ | 2025-01-04 00:00 | BP_diastolic | 77 | mmHg | + + + +---------+ | 2025-01-04 00:00 | BP_systolic | 141 | mmHg | + + + +---------+ | 2025-01-04 00:00 | heart_rate | 82 | /min | + + + +---------+ | 2025-01-04 00:00 | height_metric | 162.56 | cm | + + + +---------+ | 2025-01-04 00:00 | height_standard | 64 | in | + + + +---------+ | 2025-01-04 00:00 | o2_saturation | 95 | % | + + + +---------+ | 2025-01-04 00:00 | respiration_rate | 18 | /min | + + + +---------+ | 2025-01-04 00:00 | temperature_metric | 36.67 | C | | | | | | + + + +---------+ | 2025-01-04 00:00 | | 98 | F | | | temperature_standar | | | | | d | | | + + + +---------+ | 2025-01-04 00:00 | weight_metric | 121.299 | kg | + + + +---------+ | 2025-01-04 00:00 | weight_metric | 121.3 | kg | + + + +---------+ | 2025-01-04 00:00 | weight_standard | 267.418 | lb | + + + +---------+ | 2025-01-04 00:00 | weight_standard | 267.42 | lb | + + + +---------+ | 2025-01-05 00:00 | BMI | 45.9 | kg/m2 | + + + +---------+ | 2025-01-05 00:00 | BP_diastolic | 74 | mmHg | + + + +---------+ | 2025-01-05 00:00 | BP_systolic | 137 | mmHg | + + + +---------+ | 2025-01-05 00:00 | heart_rate | 87 | /min | + + + +---------+ | 2025-01-05 00:00 | height_metric | 162.56 | cm | + + + +---------+ | 2025-01-05 00:00 | height_standard | 64 | in | + + + +---------+ | 2025-01-05 00:00 | o2_saturation | 97 | % | + + + +---------+ | 2025-01-05 00:00 | respiration_rate | 20 | /min | + + + +---------+ | 2025-01-05 00:00 | temperature_metric | 36.83 | C | | | | | | + + + +---------+ | 2025-01-05 00:00 | | 98.3 | F | | | temperature_standar | | | | | d | | | + + + +---------+ | 2025-01-05 00:00 | weight_metric | 121.299 | kg | + + + +---------+ | 2025-01-05 00:00 | weight_metric | 121.3 | kg | + + + +---------+ | 2025-01-05 00:00 | weight_standard | 267.418 | lb | + + + +---------+ | 2025-01-05 00:00 | weight_standard | 267.42 | lb | + + + +---------+ | 2025-01-23 00:00 | BMI | 45.9 | kg/m2 | + + + +---------+ | 2025-01-23 00:00 | BP_diastolic | 59 | mmHg | + + + +---------+ | 2025-01-23 00:00 | BP_systolic | 118 | mmHg | + + + +---------+ | 2025-01-23 00:00 | heart_rate | 84 | /min | + + + +---------+ | 2025-01-23 00:00 | height_metric | 162.56 | cm | + + + +---------+ | 2025-01-23 00:00 | height_standard | 64 | in | + + + +---------+ | 2025-01-23 00:00 | o2_saturation | 84 | % | + + + +---------+ | 2025-01-23 00:00 | respiration_rate | 20 | /min | + + + +---------+ | 2025-01-23 00:00 | | 99.3 | F | | | temperature_standar | | | | | d | | | + + + +---------+ | 2025-01-23 00:00 | weight_metric | 121.299 | kg | + + + +---------+ | 2025-01-23 00:00 | weight_standard | 267.418 | lb | + + + +---------+ | 2025-01-25 00:00 | BMI | 45.4 | kg/m2 | + + + +---------+ | 2025-01-25 00:00 | BP_diastolic | 79 | mmHg | + + + +---------+ | 2025-01-25 00:00 | BP_systolic | 144 | mmHg | + + + +---------+ | 2025-01-25 00:00 | heart_rate | 75 | /min | + + + +---------+ | 2025-01-25 00:00 | height_metric | 162.56 | cm | + + + +---------+ | 2025-01-25 00:00 | height_standard | 64 | in | + + + +---------+ | 2025-01-25 00:00 | o2_saturation | 92 | % | + + + +---------+ | 2025-01-25 00:00 | o2_saturation | 93 | % | + + + +---------+ | 2025-01-25 00:00 | respiration_rate | 18 | /min | + + + +---------+ | 2025-01-25 00:00 | | 97 | F | | | temperature_standar | | | | | d | | | + + + +---------+ | 2025-01-25 00:00 | weight_metric | 120.001 | kg | + + + +---------+ | 2025-01-25 00:00 | weight_standard | 264.556 | lb | + + + +---------+ | 2025-01-29 00:00 | BMI | 47.3 | kg/m2 | + + + +---------+ | 2025-01-29 00:00 | height_metric | 162.56 | cm | + + + +---------+ | 2025-01-29 00:00 | height_standard | 64 | in | + + + +---------+ | 2025-01-29 00:00 | weight_metric | 125.002 | kg | + + + +---------+ | 2025-01-29 00:00 | weight_standard | 275.581 | lb | + + + +---------+ | 2025-01-30 00:00 | BP_diastolic | 78 | mmHg | + + + +---------+ | 2025-01-30 00:00 | BP_systolic | 170 | mmHg | + + + +---------+ | 2025-01-30 00:00 | heart_rate | 72 | /min | + + + +---------+ | 2025-01-30 00:00 | o2_saturation | 94 | % | + + + +---------+ | 2025-01-30 00:00 | respiration_rate | 18 | /min | + + + +---------+ | 2025-01-30 00:00 | | 98.4 | F | | | temperature_standar | | | | | d | | | + + + +---------+ | 2025-01-31 00:00 | BMI | 45.8 | kg/m2 | + + + +---------+ | 2025-01-31 00:00 | BP_diastolic | 74 | mmHg | + + + +---------+ | 2025-01-31 00:00 | BP_systolic | 160 | mmHg | + + + +---------+ | 2025-01-31 00:00 | heart_rate | 83 | /min | + + + +---------+ | 2025-01-31 00:00 | height_metric | 162.56 | cm | + + + +---------+ | 2025-01-31 00:00 | height_standard | 64 | in | + + + +---------+ | 2025-01-31 00:00 | o2_saturation | 94 | % | + + + +---------+ | 2025-01-31 00:00 | respiration_rate | 20 | /min | + + + +---------+ | 2025-01-31 00:00 | | 98.4 | F | | | temperature_standar | | | | | d | | | + + + +---------+ | 2025-01-31 00:00 | weight_metric | 121.001 | kg | + + + +---------+ | 2025-01-31 00:00 | weight_standard | 266.762 | lb | + + + +---------+ | 2025-02-04 00:00 | BMI | 45.8 | kg/m2 | + + + +---------+ | 2025-02-04 00:00 | BP_diastolic | 63 | mmHg | + + + +---------+ | 2025-02-04 00:00 | BP_systolic | 141 | mmHg | + + + +---------+ | 2025-02-04 00:00 | heart_rate | 91 | /min | + + + +---------+ | 2025-02-04 00:00 | height_metric | 162.56 | cm | + + + +---------+ | 2025-02-04 00:00 | height_standard | 64 | in | + + + +---------+ | 2025-02-04 00:00 | o2_saturation | 92 | % | + + + +---------+ | 2025-02-04 00:00 | respiration_rate | 25 | /min | + + + +---------+ | 2025-02-04 00:00 | | 98.9 | F | | | temperature_standar | | | | | d | | | + + + +---------+ | 2025-02-04 00:00 | weight_metric | 121.001 | kg | + + + +---------+ | 2025-02-04 00:00 | weight_standard | 266.762 | lb | + + + +---------+ | 2025-02-07 00:00 | BMI | 45.8 | kg/m2 | + + + +---------+ | 2025-02-07 00:00 | BP_diastolic | 77 | mmHg | + + + +---------+ | 2025-02-07 00:00 | BP_systolic | 105 | mmHg | + + + +---------+ | 2025-02-07 00:00 | heart_rate | 74 | /min | + + + +---------+ | 2025-02-07 00:00 | height_metric | 162.56 | cm | + + + +---------+ | 2025-02-07 00:00 | height_standard | 64 | in | + + + +---------+ | 2025-02-07 00:00 | o2_saturation | 96 | % | + + + +---------+ | 2025-02-07 00:00 | respiration_rate | 16 | /min | + + + +---------+ | 2025-02-07 00:00 | | 98.5 | F | | | temperature_standar | | | | | d | | | + + + +---------+ | 2025-02-07 00:00 | weight_metric | 121.001 | kg | + + + +---------+ | 2025-02-07 00:00 | weight_standard | 266.762 | lb | + + + +---------+ | 2025-02-10 00:00 | BMI | 45.8 | kg/m2 | + + + +---------+ | 2025-02-10 00:00 | BP_diastolic | 76 | mmHg | + + + +---------+ | 2025-02-10 00:00 | BP_systolic | 166 | mmHg | + + + +---------+ | 2025-02-10 00:00 | heart_rate | 76 | /min | + + + +---------+ | 2025-02-10 00:00 | height_metric | 162.56 | cm | + + + +---------+ | 2025-02-10 00:00 | height_standard | 64 | in | + + + +---------+ | 2025-02-10 00:00 | o2_saturation | 93 | % | + + + +---------+ | 2025-02-10 00:00 | respiration_rate | 20 | /min | + + + +---------+ | 2025-02-10 00:00 | | 98.2 | F | | | temperature_standar | | | | | d | | | + + + +---------+ | 2025-02-10 00:00 | weight_metric | 121.001 | kg | + + + +---------+ | 2025-02-10 00:00 | weight_standard | 266.762 | lb | + + + +---------+ | 2025-02-17 00:00 | BMI | 46.2 | kg/m2 | + + + +---------+ | 2025-02-17 00:00 | BP_diastolic | 66 | mmHg | + + + +---------+ | 2025-02-17 00:00 | BP_systolic | 135 | mmHg | + + + +---------+ | 2025-02-17 00:00 | heart_rate | 70 | /min | + + + +---------+ | 2025-02-17 00:00 | height_metric | 162.56 | cm | + + + +---------+ | 2025-02-17 00:00 | height_standard | 64 | in | + + + +---------+ | 2025-02-17 00:00 | o2_saturation | 96 | % | + + + +---------+ | 2025-02-17 00:00 | respiration_rate | 20 | /min | + + + +---------+ | 2025-02-17 00:00 | | 99.2 | F | | | temperature_standar | | | | | d | | | + + + +---------+ | 2025-02-17 00:00 | weight_metric | 121.999 | kg | + + + +---------+ | 2025-02-17 00:00 | weight_standard | 268.962 | lb | + + + +---------+ | 2025-02-21 00:00 | BMI | 46.2 | kg/m2 | + + + +---------+ | 2025-02-21 00:00 | BP_diastolic | 82 | mmHg | + + + +---------+ | 2025-02-21 00:00 | BP_systolic | 153 | mmHg | + + + +---------+ | 2025-02-21 00:00 | heart_rate | 86 | /min | + + + +---------+ | 2025-02-21 00:00 | height_metric | 162.56 | cm | + + + +---------+ | 2025-02-21 00:00 | height_standard | 64 | in | + + + +---------+ | 2025-02-21 00:00 | o2_saturation | 95 | % | + + + +---------+ | 2025-02-21 00:00 | respiration_rate | 18 | /min | + + + +---------+ | 2025-02-21 00:00 | | 98.6 | F | | | temperature_standar | | | | | d | | | + + + +---------+ | 2025-02-21 00:00 | weight_metric | 121.999 | kg | + + + +---------+ | 2025-02-21 00:00 | weight_standard | 268.962 | lb | + + + +---------+"
--- OUTSIDE RECORDS SUMMARY | ~2025-03-14 | XMS | Continuity of Care Document ---
Demographics + + + | Address | [address] [address] | | | [place] [address] | + + + | Preferred Language | Unknown | + + + | Marital Status | | + + + | [employer] Affiliation | Unknown | + + + | Race | White | + + + | Ethnic Group | Not or | + + + Author + + + | Author | [facility] | + + + | Organization | [facility] | + + + | Address | [address] | | | [place] [address] | + + + | Phone | | + + + Care Team Providers + + + + | Care Composite Boat Builder Name | Role | Phone | + [...] [facility] | | | [facility] | + + + + | 2025-01-01 00:00 | LIDOCAINE 2% VISCOUS | [facility] | | | | [facility] | + + + + | 2025-01-01 00:00 | LIDOCAINE 2% VISCOUS | [facility] | | | | [facility] | + + + + | 2025-01-01 00:00 | LIDOCAINE 2% VISCOUS | [facility] | | | | [facility] | + + + + | 2025-01-01 00:00 | LIDOCAINE 2% VISCOUS | [facility] | | | | [facility] | + + + + | (no date) | Lurasidone HCl | [facility] | | | | [facility] | + + + + | (no date) | Lurasidone HCl | [facility] | | | | [facility] | + + + + | (no date) | Lurasidone HCl | [facility] | | | | [facility] | + + + + | (no date) | Lurasidone HCl | [facility] | | | | [facility] | + + + + | (no date) | Lurasidone HCl | [facility] | | | | [facility] | + + + + | (no date) | LURASIDONE HCL | [facility] | | | | [facility] | + + + + | (no date) | LURASIDONE HCL | [facility] | | | | [facility] | + + + + | (no date) | LURASIDONE HCL | [facility] | | | | [facility] | + + + + | (no date) | LURASIDONE HCL | [facility] | | | | [facility] | + + + + | (no date) | LURASIDONE HCL | [facility] | | | | [facility] | + + + + | 2025-02-07 00:00 | LORAZEPAM | [facility] | | | [facility] | + + + + | 2025-02-07 00:00 | LORAZEPAM | [facility] | | | | [facility] | + + + + | 2025-02-07 00:00 | LORAZEPAM | [facility] | | | | [facility] | + + + + | (no date) | OXYCODONE | [facility] | | | HCL/ACETAMINOPHEN | [facility] | + + + + | (no date) | OXYCODONE | [facility] | | | HCL/ACETAMINOPHEN | [facility] | + + + + | (no date) | OXYCODONE | [facility] | | | HCL/ACETAMINOPHEN | [facility] | + + + + | (no date) | OXYCODONE | [facility] | | | HCL/ACETAMINOPHEN | [facility] | + + + + | (no date) | OXYCODONE | [facility] | | | HCL/ACETAMINOPHEN | [facility] | + + + + | (no date) | OXYCODONE HCL | [facility] | | | | [facility] | + + + + | (no date) | OXYCODONE HCL | [facility] | | | | [facility] | + + + + | (no date) | OXYCODONE HCL | [facility] | | | | [facility] | + + + + | (no date) | OXYCODONE HCL | [facility] | | | | [facility] | + + + + | (no date) | OXYCODONE HCL | [facility] | | | | [facility] | + + + + | (no date) | METHYLPHENIDATE HCL | [facility] | | | | [facility] | + + + + | (no date) | METHYLPHENIDATE HCL | [facility] | | | | [facility] | + + + + | (no date) | METHYLPHENIDATE HCL | [facility] | | | | [facility] | + + + + | (no date) | METHYLPHENIDATE HCL | [facility] | | | | [facility] | + + + + | (no date) | METHYLPHENIDATE HCL | [facility] | | | | [facility] | + + + + | (no date) | Lurasidone HCl | [facility] | | | | [facility] | + + + + | (no date) | Lurasidone HCl | [facility] | | | | [facility] | + + + + | (no date) | Lurasidone HCl | [facility] | | | | [facility] | + + + + | (no date) | Lurasidone HCl | [facility] | | | | [facility] | + + + + | (no date) | Lurasidone HCl | [facility] | | | | [facility] | + + + + | (no date) | DULAGLUTIDE | [facility] | | | | [facility] | + + + + | (no date) | DULAGLUTIDE | [facility] | | | | [facility] | + + + + | (no date) | DULAGLUTIDE | [facility] | | | | [facility] | + + + + | (no date) | DULAGLUTIDE | [facility] | | | | [facility] | + + + + | (no date) | DULAGLUTIDE | [facility] | | | | [facility] | + + + + | (no date) | DULAGLUTIDE | [facility] | | | | [facility] | + + + + | (no date) | DULAGLUTIDE | [facility] | | | | [facility] | + + + + | (no date) | DULAGLUTIDE | [facility] | | | | [facility] | + + + + | (no date) | DULAGLUTIDE | [facility] | | | | [facility] | + + + + | (no date) | DULAGLUTIDE | [facility] | | | | [facility] | + + + + | 2025-01-30 00:00 | POTASSIUM CHLORIDE | [facility] | | | | [facility] | + + + + | 2025-01-30 00:00 | POTASSIUM CHLORIDE | [facility] | | | | [facility] | + + + + | 2025-01-30 00:00 | POTASSIUM CHLORIDE | [facility] | | | | [facility] | + + + + | 2025-01-30 00:00 | POTASSIUM CHLORIDE | [facility] | | | | [facility] | + + + + | (no date) | SULFASALAZINE | [facility] | | | | [facility] | + + + + | (no date) | SULFASALAZINE | [facility] | | | | [facility] | + + + + | (no date) | SULFASALAZINE | [facility] | | | | [facility] | + + + + | (no date) | SULFASALAZINE | [facility] | | | | [facility] | + + + + | (no date) | SULFASALAZINE | [facility] | | | | [facility] | + + + + | (no date) | | [facility] | | | SULFAMETHOXAZOLE/TRIMETHOPR | [facility] | | | IM | | + + + + | (no date) | | [facility] | | | SULFAMETHOXAZOLE/TRIMETHOPR | [facility] | | | IM | | + + + + | (no date) | | [facility] | | | SULFAMETHOXAZOLE/TRIMETHOPR | [facility] | | | IM | | + + + + | (no date) | | [facility] | | | SULFAMETHOXAZOLE/TRIMETHOPR | [facility] | | | IM | | + + + + | (no date) | | [facility] | | | SULFAMETHOXAZOLE/TRIMETHOPR | [facility] | | | IM | | + + + + | (no date) | LAMOTRIGINE | [facility] | | | | [facility] | + + + + | (no date) | LAMOTRIGINE | [facility] | | | | [facility] | + + + + | (no date) | LAMOTRIGINE | [facility] | | | | [facility] | + + + + | (no date) | LAMOTRIGINE | [facility] | | | | [facility] | + + + + | (no date) | LAMOTRIGINE | [facility] | | | | [facility] | + + + + | (no date) | GLIMEPIRIDE | [facility] | | | | [facility] | + + + + | (no date) | SKYLAMEPIRIDE | [facility] | | | | [facility] | + + + + | (no date) | GLIMEPIRIDE | [facility] | | | | [facility] | + + + + | (no date) | GLIMEPIRIDE | [facility] | | | | [facility] | + + + + | (no date) | SKYLAMEPIRIDE | [facility] | | | | [facility] | + + + + | 2025-01-30 00:00 | FUROSEMIDE | [facility] | | | | [facility] | + + + + | [...] [facility] | | | | [facility] | + + + + | (no date) | GABAPENTIN | [facility] | | | | [facility] | + + + + | (no date) | LEVOFLOXACIN | [facility] | | | | [facility] | + + + + | (no date) | LEVOFLOXACIN | [facility] | | | | [facility] | + + + + | (no date) | LEVOFLOXACIN | [facility] | | | | [facility] | + + + + | (no date) | LEVOFLOXACIN | [facility] | | | | [facility] | + + + + | (no date) | LEVOFLOXACIN | [facility] | | | | [facility] | + + + + | (no date) | MIRTAZAPINE | [facility] | | | | [facility] | + + + + | (no date) | MIRTAZAPINE | [facility] | | | | [facility] | + + + + | (no date) | MIRTAZAPINE | [facility] | | | | [facility] | + + + + | (no date) | MIRTAZAPINE | [facility] | | | | [facility] | + + + + | (no date) | MIRTAZAPINE | [facility] | | | | [facility] | + + + + | (no date) | DULOXETINE HCL | [facility] | | | | [facility] | + + + + | (no date) | DULOXETINE HCL | [facility] | | | | [facility] | + + + + | (no date) | DULOXETINE HCL | [facility] | | | | [facility] | + + + + | (no date) | DULOXETINE HCL | [facility] | | | | [facility] | + + + + | (no date) | DULOXETINE HCL | [facility] | | | | [facility] | + + + + | (no date) | DULOXETINE HCL | [facility] | | | | [facility] | + + + + | (no date) | DULOXETINE HCL | [facility] | | | | [facility] | + + + + | (no date) | DULOXETINE HCL | [facility] | | | | [facility] | + + + + | (no date) | DULOXETINE HCL | [facility] | | | | [facility] | + + + + | (no date) | DULOXETINE HCL | [facility] | | | | [facility] | + + + + | 2025-01-01 00:00 | | [facility] | | | SULFAMETHOXAZOLE/TRIMETHOPR | [facility] | | | IM DS | | + + + + | 2025-01-01 00:00 | | [facility] | | | SULFAMETHOXAZOLE/TRIMETHOPR | [facility] | | | IM DS | | + + + + | 2025-01-01 00:00 | | [facility] | | | SULFAMETHOXAZOLE/TRIMETHOPR | [facility] | | | IM DS | | + + + + | 2025-01-01 00:00 | | [facility] | | | SULFAMETHOXAZOLE/TRIMETHOPR | [facility] | | | IM DS | | + + + + | 2025-01-01 00:00 | | [facility] | | | SULFAMETHOXAZOLE/TRIMETHOPR | [facility] | | | IM DS | | + + + + | (no date) | ZOLPIDEM TARTRATE | [facility] | | | | [facility] | + + + + | (no date) | ZOLPIDEM TARTRATE | [facility] | | | | [facility] | + + + + | (no date) | ZOLPIDEM TARTRATE | [facility] | | | | [facility] | + + + + | (no date) | ZOLPIDEM TARTRATE | [facility] | | | | [facility] | + + + + | (no date) | ZOLPIDEM TARTRATE | [facility] | | | | [facility] | + + + + | (no date) | TRAZODONE HCL | [facility] | | | | [facility] | + + + + | (no date) | TRAZODONE HCL | [facility] | | | | [facility] | + + + + | (no date) | TRAZODONE HCL | [facility] | | | | [facility] | + + + + | (no date) | TRAZODONE HCL | [facility] | | | | [facility] | + + + + | (no date) | TRAZODONE HCL | [facility] | | | | [facility] | + + + + | (no date) | TRAZODONE HCL | [facility] | | | | [facility] | + + + + | (no date) | TRAZODONE HCL | [facility] | | | | [facility] | + + + + | (no date) | TRAZODONE HCL | [facility] | | | | [facility] | + + + + | (no date) | TRAZODONE HCL | [facility] | | | | [facility] | + + + + | (no date) | TRAZODONE HCL | [facility] | | | | [facility] | + + + + | (no date) | ASENAPINE MALEATE | [facility] | | | | [facility] | + + + + | (no date) | ASENAPINE MALEATE | [facility] | | | | [facility] | + + + + | (no date) | ASENAPINE MALEATE | [facility] | | | | [facility] | + + + + | (no date) | ASENAPINE MALEATE | [facility] | | | | [facility] | + + + + | (no date) | ASENAPINE MALEATE | [facility] | | | | [facility] | + + + + | (no date) | METFORMIN HCL | [facility] | | | | [facility] | + + + + | (no date) | METFORMIN HCL | [facility] | | | | [facility] | + + + + | (no date) | METFORMIN HCL | [facility] | | | | [facility] | + + + + | (no date) | METFORMIN HCL | [facility] | | | | [facility] | + + + + | (no date) | METFORMIN HCL | [facility] | | | | [facility] | + + + + | (no date) | HYDROmorphone HCL | [facility] | | | | [facility] | + + + + | (no date) | HYDROmorphone HCL | [facility] | | | | [facility] | + + + + | (no date) | HYDROmorphone HCL | [facility] | | | | [facility] | + + + + | (no date) | CHLORPROMAZINE HCL | [facility] | | | | [facility] | + + + + | (no date) | CHLORPROMAZINE HCL | [facility] | | | | [facility] | + + + + | (no date) | CHLORPROMAZINE HCL | [facility] | | | | [facility] | + + + + | (no date) | CHLORPROMAZINE HCL | [facility] | | | | [facility] | + + + + | (no date) | CHLORPROMAZINE HCL | [facility] | | | | [facility] | + + + + | (no date) | CHLORPROMAZINE HCL | [facility] | | | | [facility] | + + + + | (no date) | CHLORPROMAZINE HCL | [facility] | | | | [facility] | + + + + | (no date) | CHLORPROMAZINE HCL | [facility] | | | | [facility] | + + + + | (no date) | CHLORPROMAZINE HCL | [facility] | | | | [facility] | + + + + | (no date) | CHLORPROMAZINE HCL | [facility] | | | | [facility] | + + + + | (no date) | PROMETHAZINE HCL | [facility] | | | | [facility] | + + + + | (no date) | PROMETHAZINE HCL | [facility] | | | | [facility] | + + + + | (no date) | PROMETHAZINE HCL | [facility] | | | | [facility] | + + + + | (no date) | PROMETHAZINE HCL | [facility] | | | | [facility] | + + + + | (no date) | PROMETHAZINE HCL | [facility] | | | | [facility] | + + + + Problems + + + + | date | description | facility | + + + + | 2024-12-20 00:00 | Psychosis | [facility] [place] | | | | [facility] | + + + + | 2024-12-20 00:00 | Psychosis | [facility] | | | | [facility] | + + + + | 2024-12-20 00:00 | Psychosis | [facility] | | | | [facility] | + + + + | 2024-12-20 00:00 | Psychosis | [facility] | | | | [facility] | + + + + | 2024-12-20 00:00 | Psychosis | [facility] | | | | [facility] | + + + + | 2025-01-01 00:00 | Throat pain | [facility] | | | | [facility] | + + + + | 2025-01-01 00:00 | Throat pain | [facility] | | | | [facility] | + + + + | 2025-01-01 00:00 | Throat pain | [facility] | | | | [facility] | + + + + | 2025-01-01 00:00 | Throat pain | [facility] | | | | [facility] | + + + + | 2025-01-01 00:00 | Throat pain | [facility] | | | | [facility] | + + + + | 2025-01-23 00:00 | Attention to tracheostomy | [facility] | | | | [facility] | + + + + | 2025-01-23 00:00 | Attention to tracheostomy | [facility] | | | | [facility] | + + + + | 2025-01-23 00:00 | Attention to tracheostomy | [facility] | | | | [facility] | + + + + | 2025-01-23 00:00 | Attention to tracheostomy | [facility] | | | | [facility] | + + + + | 2025-01-25 00:00 | Tracheostomy complication | [facility] | | | | [facility] | + + + + | 2025-01-25 00:00 | Tracheostomy complication | [facility] | | | | [facility] | + + + + | 2025-01-25 00:00 | Tracheostomy complication | [facility] | | | | [facility] | + + + + | 2025-01-25 00:00 | Tracheostomy complication | [facility] | | | | [facility] | + + + + | 2025-01-30 00:00 | Chronic pain | [facility] | | | | [facility] | + + + + | 2025-01-30 00:00 | Chronic pain | [facility] | | | | [facility] | + + + + | 2025-01-30 00:00 | Chronic pain | [facility] | | | | [facility] | + + + + | 2025-01-30 00:00 | Chronic pain | [facility] | | | | [facility] | + + + + | 2025-01-31 00:00 | Congestive heart failure | [facility] | | | | [facility] | + + + + | 2025-01-31 00:00 | Congestive heart failure | [facility] | | | | [facility] | + + + + | 2025-01-31 00:00 | Congestive heart failure | [facility] | | | | [facility] | + + + + | 2025-01-31 00:00 | Congestive heart failure | [facility] | | | | [facility] | + + + + | 2025-01-31 00:00 | Deficient knowledge of | [facility] | | | tracheostomy home care | [facility] | + + + + | 2025-01-31 00:00 | Deficient knowledge of | [facility] | | | tracheostomy home care | [facility] | + + + + | 2025-01-31 00:00 | Deficient knowledge of | [facility] | | | tracheostomy home care | [facility] | + + + + | 2025-01-31 00:00 | Deficient knowledge of | [facility] | | | tracheostomy home care | [facility] | + + + + | 2025-02-04 00:00 | Shortness of breath | [facility] | | | | [facility] | + + + + | 2025-02-04 00:00 | Shortness of breath | [facility] | | | | [facility] | + + + + | 2025-02-04 00:00 | Shortness of breath | [facility] | | | | [facility] | + + + + | 2025-02-21 00:00 | Encounter for medical | [facility] | | | screening examination | [facility] | + + + + Procedures [...] 139 | (missing) | (missing) | | [facility] | 11:51:07 | [facility] | [...] 57 | (missing) | (missing) | | [facility] | 11:51:07 | [facility] | | | [...] 13.9 | (missing) | (missing) | | [facility] | 11:51:07 | [facility] | | | [...] 139 | (missing) | (missing) | | [facility] | 11:51:07 | [facility] | [...] 73 | (missing) | (missing) | | [facility] | 11:51:07 | [facility] | | | [...] 139 | (missing) | (missing) | | [facility] | 22:52:07 | [facility] | [...] 3.2 | (missing) | (missing) | | [facility] | 22:52:07 | [facility] | | | [...] 16 | (missing) | (missing) | | [facility] | 22[facility]52:07 | [facility] | | | [...] 3.2 | (missing) | (missing) | | [facility] | 22:52:07 | [facility] | [...] 0.2 | mg/dL | (missing) | | [facility] | 22:52:07 | [facility] | [...] 37 | (missing) | (missing) | | [facility] | 22:52:07 | [facility] | | | [...] 102 | (missing) | (missing) | | [facility] | 22:52:07 | [facility] | [...] 3.2 | (missing) | (missing) | | [facility] | 22:52:07 | [facility] | [...]
--- OUTSIDE RECORDS SUMMARY | ~2025-03-14 | XMS | Continuity of Care Document ---
Demographics + + + | Address | [address] [address] | | | [place] [address] | + + + | Preferred Language | Unknown | + + + | Marital Status | | + + + | Sikhism Affiliation | Unknown | + + + | Race | White | + + + | Ethnic Group | Not or | + + + Author + + + | Author | [facility] | + + + | Organization | [facility] | + + + | Address | [address] | | | [place] [address] | + + + | Phone | | + + + Care Team Providers + + + + | Care Prec[facility] J[employer]inder Name | Role | Phone | + [...] [facility] | | | [facility] | + + + + | 2025-01-01 00:00 | LIDOCAINE 2% VISCOUS | [facility] | | | | [facility] | + + + + | 2025-01-01 00:00 | LIDOCAINE 2% VISCOUS | [facility] | | | | [facility] | + + + + | 2025-01-01 00:00 | LIDOCAINE 2% VISCOUS | [facility] | | | | [facility] | + + + + | 2025-01-01 00:00 | LIDOCAINE 2% VISCOUS | [facility] | | | | [facility] | + + + + | (no date) | Lurasidone HCl | [facility] | | | | [facility] | + + + + | (no date) | Lurasidone HCl | [facility] | | | | [facility] | + + + + | (no date) | Lurasidone HCl | [facility] | | | | [facility] | + + + + | (no date) | Lurasidone HCl | [facility] | | | | [facility] | + + + + | (no date) | Lurasidone HCl | [facility] | | | | [facility] | + + + + | (no date) | LURASIDONE HCL | [facility] | | | | [facility] | + + + + | (no date) | LURASIDONE HCL | [facility] | | | | [facility] | + + + + | (no date) | LURASIDONE HCL | [facility] | | | | [facility] | + + + + | (no date) | LURASIDONE HCL | [facility] | | | | [facility] | + + + + | (no date) | LURASIDONE HCL | [facility] | | | | [facility] | + + + + | 2025-02-07 00:00 | LORAZEPAM | [facility] | | | | [facility] | + + + + | 2025-02-07 00:00 | LORAZEPAM | [facility] | | | | [facility] | + + + + | 2025-02-07 00:00 | LORAZEPAM | [facility] | | | | [facility] | + + + + | (no date) | OXYCODONE | [facility] | | | HCL/ACETAMINOPHEN | [facility] | + + + + | (no date) | OXYCODONE | [facility] | | | HCL/ACETAMINOPHEN | [facility] | + + + + | (no date) | [facility]CODONE | [facility] | | | HCL/ACETAMINOPHEN | [facility] | + + + + | (no date) | O[facility]CODONE | [facility] | | | HCL/ACETAMINOPHEN | [facility] | + + + + | (no date) | OXYCODONE | [facility] | | | HCL/ACETAMINOPHEN | [facility] | + + + + | (no date) | OXYCODONE HCL | [facility] | | | | [facility] | + + + + | (no date) | OXYCODONE HCL | [facility] | | | [facility] | + + + + | (no date) | OXYCODONE HCL | [facility] | | | [facility] | + + + + | (no date) | OXYCODONE HCL | [facility] | | | [facility] | + + + + | (no date) | OXYCODONE HCL | [facility] | | | [facility] | + + + + | (no date) | METHYLPHENIDATE HCL | [facility] | | | [facility] | + + + + | (no date) | METHYLPHENIDATE HCL | [facility] | | | | [facility] | + + + + | (no date) | METHYLPHENIDATE HCL | [facility] | | | [facility] | + + + + | (no date) | METHYLPHENIDATE HCL | [facility] | | | | [facility] | + + + + | (no date) | METHYLPHENIDATE HCL | [facility] | | | [facility] | + + + + | (no date) | Lurasidone HCl | [facility] | | | | [facility] | + + + + | (no date) | Lurasidone HCl | [facility] | [facility] | + + + + | (no date) | Lurasidone HCl | [facility] | | | | [facility] | + + + + | (no date) | Lurasidone HCl | [facility] | [facility] | + + + + | (no date) | Lurasidone HCl | [facility] | | | | [facility] | + + + + | (no date) | DULAGLUTIDE | [facility] | [facility] | + + + + | (no date) | DULAGLUTIDE | [facility] | | | [facility] | + + + + | (no date) | DULAGLUTIDE | [facility] | | | | [facility] | + + + + | (no date) | DULAGLUTIDE | [facility] | | | [facility] | + + + + | (no date) | DULAGLUTIDE | [facility] | | | | [facility] | + + + + | (no date) | DULAGLUTIDE | [facility] | | | [facility] | + + + + | (no date) | DULAGLUTIDE | [facility] | | | | [facility] | + + + + | (no date) | DULAGLUTIDE | [facility] | | | [facility] | + + + + | (no date) | DULAGLUTIDE | [facility] | | | [facility] | + + + + | (no date) | DULAGLUTIDE | [facility] | | | | [facility] | + + + + | 2025-01-30 00:00 | POTASSIUM CHLORIDE | [facility] | | | | [facility] | + + + + | 2025-01-30 00:00 | POTASSIUM CHLORIDE | [facility] | | | | [facility] | + + + + | 2025-01-30 00:00 | POTASSIUM CHLORIDE | [facility] | | | | [facility] | + + + + | 2025-01-30 00:00 | POTASSIUM CHLORIDE | [facility] | | | | [facility] | + + + + | (no date) | SULFASALAZINE | [facility] | | | | [facility] | + + + + | (no date) | SULFASALAZINE | [facility] | | | | [facility] | + + + + | (no date) | SULFASALAZINE | [facility] | | | | [facility] | + + + + | (no date) | SULFASALAZINE | [facility] | | | | [facility] | + + + + | (no date) | SULFASALAZINE | [facility] | | | | [facility] | + + + + | (no date) | | [facility] | | | SULFAMETHOXAZOLE/TRIMETHOPR | [facility] | | | IM | | + + + + | (no date) | | [facility] | | | SULFAMETHOXAZOLE/TRIMETHOPR | [facility] | | | IM | | + + + + | (no date) | | [facility] | | | SULFAMETHOXAZOLE/TRIMETHOPR | [facility] | | | IM | | + + + + | (no date) | | [facility] | | | SULFAMETHOXAZOLE/TRIMETHOPR | [facility] | | | IM | | + + + + | (no date) | | [facility] | | | SULFAMETHOXAZOLE/TRIMETHOPR | [facility] | | | IM | | + + + + | (no date) | LAMOTRIGINE | [facility] | | | | [facility] | + + + + | (no date) | LAMOTRIGINE | [facility] | | | | [facility] | + + + + | (no date) | LAMOTRIGINE | [facility] | | | | [facility] | + + + + | (no date) | LAMOTRIGINE | [facility] | | | | [facility] | + + + + | (no date) | LAMOTRIGINE | [facility] | | | | [facility] | + + + + | (no date) | GLIMEPIRIDE | [facility] | | | | [facility] | + + + + | (no date) | SKYLAMEPIRIDE | [facility] | | | | [facility] | + + + + | (no date) | GLIMEPIRIDE | [facility] | | | | [facility] | + + + + | (no date) | GLIMEPIRIDE | [facility] | | | | [facility] | + + + + | (no date) | SKYLAMEPIRIDE | [facility] | | | | [facility] | + + + + | 2025-01-30 00:00 | FUROSEMIDE | [facility] | | | | [facility] | + + + + | 2025-01-30 [...] [facility] | | | | [facility] | + + + + | (no date) | GABAPENTIN | [facility] | | | | [facility] | + + + + | (no date) | GABAPENTIN | [facility] | | | | [facility] | + + + + | (no date) | GABAPENTIN | [facility] | | | | [facility] | + + + + | (no date) | GABAPENTIN | [facility] | | | | [facility] | + + + + | (no date) | LEVOFLOXACIN | [facility] | | | | [facility] | + + + + | (no date) | LEVOFLOXACIN | [facility] | | | [facility] | + + + + | (no date) | LEVOFLOXACIN | [facility] | | | | [facility] | + + + + | (no date) | LEVOFLOXACIN | [facility] | | | | [facility] | + + + + | (no date) | LEVOFLOXACIN | [facility] | | | | [facility] | + + + + | (no date) | MIRTAZAPINE | [facility] | | | | [facility] | + + + + | (no date) | MIRTAZAPINE | [facility] | | | | [facility] | + + + + | (no date) | MIRTAZAPINE | [facility] | | | | [facility] | + + + + | (no date) | MIRTAZAPINE | [facility] | | | | [facility] | + + + + | (no date) | MIRTAZAPINE | [facility] | | | | [facility] | + + + + | (no date) | DULOXETINE HCL | [facility] | | | | [facility] | + + + + | (no date) | DULOXETINE HCL | [facility] | | | | [facility] | + + + + | (no date) | DULOXETINE HCL | [facility] | | | | [facility] | + + + + | (no date) | DULOXETINE HCL | [facility] | | | | [facility] | + + + + | (no date) | DULOXETINE HCL | [facility] | | | | [facility] | + + + + | (no date) | DULOXETINE HCL | [facility] | | | | [facility] | + + + + | (no date) | DULOXETINE HCL | [facility] | | | | [facility] | + + + + | (no date) | DULOXETINE HCL | [facility] | | | | [facility] | + + + + | (no date) | DULOXETINE HCL | [facility] | [facility] | [facility] | + + + + | (no date) | DULOXETINE HCL | [facility] | | | | [facility] | + + + + | 2025-01-01 00:00 | | [facility] | | | SULFAMETHOXAZOLE/TRIMETHOPR | [facility] | | | IM DS | | + + + + | 2025-01-01 00:00 | | [facility] | | | SULFAMETHOXAZOLE/TRIMETHOPR | [facility] | | | IM DS | | + + + + | 2025-01-01 00:00 | | [facility] | | | SULFAMETHOXAZOLE/TRIMETHOPR | [facility] | | | IM DS | | + + + + | 2025-01-01 00:00 | | [facility] | | | SULFAMETHOXAZOLE/TRIMETHOPR | [facility] | | | IM DS | | + + + + | 2025-01-01 00:00 | | [facility] | | | SULFAMETHOXAZOLE/TRIMETHOPR | [facility] | | | IM DS | | + + + + | (no date) | ZOLPIDEM TARTRATE | [facility] | | | | [facility] | + + + + | (no date) | ZOLPIDEM TARTRATE | [facility] | | | | [facility] | + + + + | (no date) | ZOLPIDEM TARTRATE | [facility] | | | | [facility] | + + + + | (no date) | ZOLPIDEM TARTRATE | [facility] | | | | [facility] | + + + + | (no date) | ZOLPIDEM TARTRATE | [facility] | | | | [facility] | + + + + | (no date) | TRAZODONE HCL | [facility] | | | | [facility] | + + + + | (no date) | TRAZODONE HCL | [facility] | | | | [facility] | + + + + | (no date) | TRAZODONE HCL | [facility] | | | | [facility] | + + + + | (no date) | TRAZODONE HCL | [facility] | | | | [facility] | + + + + | (no date) | TRAZODONE HCL | [facility] | | | | [facility] | + + + + | (no date) | TRAZODONE HCL | [facility] | | | | [facility] | + + + + | (no date) | TRAZODONE HCL | [facility] | | | | [facility] | + + + + | (no date) | TRAZODONE HCL | [facility] | | | | [facility] | + + + + | (no date) | TRAZODONE HCL | [facility] | | | | [facility] | + + + + | (no date) | TRAZODONE HCL | [facility] | | | | [facility] | + + + + | (no date) | ASENAPINE MALEATE | [facility] | | | | [facility] | + + + + | (no date) | ASENAPINE MALEATE | [facility] | | | | [facility] | + + + + | (no date) | ASENAPINE MALEATE | [facility] | | | | [facility] | + + + + | (no date) | ASENAPINE MALEATE | [facility] | | | | [facility] | + + + + | (no date) | ASENAPINE MALEATE | [facility] | | | | [facility] | + + + + | (no date) | METFORMIN HCL | [facility] | | | | [facility] | + + + + | (no date) | METFORMIN HCL | [facility] | | | | [facility] | + + + + | (no date) | METFORMIN HCL | [facility] | | | | [facility] | + + + + | (no date) | METFORMIN HCL | [facility] | | | | [facility] | + + + + | (no date) | METFORMIN HCL | [facility] | | | | [facility] | + + + + | (no date) | HYDROmorphone HCL | [facility] | | | | [facility] | + + + + | (no date) | HYDROmorphone HCL | [facility] | | | | [facility] | + + + + | (no date) | HYDROmorphone HCL | [facility] | | | | [facility] | + + + + | (no date) | CHLORPROMAZINE HCL | [facility] | | | | [facility] | + + + + | (no date) | CHLORPROMAZINE HCL | [facility] | | | | [facility] | + + + + | (no date) | CHLORPROMAZINE HCL | [facility] | | | | [facility] | + + + + | (no date) | CHLORPROMAZINE HCL | [facility] | | | | [facility] | + + + + | (no date) | CHLORPROMAZINE HCL | [facility] | | | | [facility] | + + + + | (no date) | CHLORPROMAZINE HCL | [facility] | | | | [facility] | + + + + | (no date) | CHLORPROMAZINE HCL | [facility] | | | | [facility] | + + + + | (no date) | CHLORPROMAZINE HCL | [facility] | | | | [facility] | + + + + | (no date) | CHLORPROMAZINE HCL | [facility] | | | | [facility] | + + + + | (no date) | CHLORPROMAZINE HCL | [facility] | | | | [facility] | + + + + | (no date) | PROMETHAZINE HCL | [facility] | | | | [facility] | + + + + | (no date) | PROMETHAZINE HCL | [facility] | | | | [facility] | + + + + | (no date) | PROMETHAZINE HCL | [facility] | | | | [facility] | + + + + | (no date) | PROMETHAZINE HCL | [facility] | | | | [facility] | + + + + | (no date) | PROMETHAZINE HCL | [facility] | | | | [facility] | + + + + Problems + + + + | date | description | facility | + + + + | 2024-12-20 00:00 | Psychosis | [facility] | | | | [facility] | + + + + | 2024-12-20 00:00 | Psychosis | [facility] | | | | [facility] | + + + + | 2024-12-20 00:00 | Psychosis | [facility] | | | | [facility] | + + + + | 2024-12-20 00:00 | Psychosis | [facility] | | | | [facility] | + + + + | 2024-12-20 00:00 | Psychosis | [facility] | [facility] | + + + + | 2025-01-01 00:00 | Throat pain | [facility] | | | | [facility] | + + + + | 2025-01-01 00:00 | Throat pain | [facility] | | | | [facility] | + + + + | 2025-01-01 00:00 | Throat pain | [facility] | | | | [facility] | + + + + | 2025-01-01 00:00 | Throat pain | [facility] | | | | [facility] | + + + + | 2025-01-01 00:00 | Throat pain | [facility] | | | | [facility] | + + + + | 2025-01-23 00:00 | Attention to tracheostomy | [facility] | | | | [facility] | + + + + | 2025-01-23 00:00 | Attention to tracheostomy | [facility] | | | | [facility] | + + + + | 2025-01-23 00:00 | Attention to tracheostomy | [facility] | | | | [facility] | + + + + | 2025-01-23 00:00 | Attention to tracheostomy | [facility] | | | | [facility] | + + + + | 2025-01-25 00:00 | Tracheostomy complication | [facility] | | | | [facility] | + + + + | 2025-01-25 00:00 | Tracheostomy complication | [facility] | | | | [facility] | + + + + | 2025-01-25 00:00 | Tracheostomy complication | [facility] | | | | [facility] | + + + + | 2025-01-25 00:00 | Tracheostomy complication | [facility] | | | | [facility] | + + + + | 2025-01-30 00:00 | Chronic pain | [facility] | | | | [facility] | + + + + | 2025-01-30 00:00 | Chronic pain | [facility] | | | | [facility] | + + + + | 2025-01-30 00:00 | Chronic pain | [facility] | | | | [facility] | + + + + | 2025-01-30 00:00 | Chronic pain | [facility] | | | | [facility] | + + + + | 2025-01-31 00:00 | Congestive heart failure | [facility] | | | | [facility] | + + + + | 2025-01-31 00:00 | Congestive heart failure | [facility] | | | | [facility] | + + + + | 2025-01-31 00:00 | Congestive heart failure | [facility] | | | | [facility] | + + + + | 2025-01-31 00:00 | Congestive heart failure | [facility] | | | | [facility] | + + + + | 2025-01-31 00:00 | Deficient knowledge of | [facility] | | | tracheostomy home care | [facility] | + + + + | 2025-01-31 00:00 | Deficient knowledge of | [facility] | | | tracheostomy home care | [facility] | + + + + | 2025-01-31 00:00 | Deficient knowledge of | [facility] | | | tracheostomy home care | [facility] | + + + + | 2025-01-31 00:00 | Deficient knowledge of | [facility] | | | tracheostomy home care | [facility] | + + + + | 2025-02-04 00:00 | Shortness of breath | [facility] | | | | [facility] | + + + + | 2025-02-04 00:00 | Shortness of breath | [facility] | | | | [facility] | + + + + | 2025-02-04 00:00 | Shortness of breath | [facility] | | | | [facility] | + + + + | 2025-02-21 00:00 | Encounter for medical | [facility] | | | screening examination | [facility] | + + + + Procedures No [...] 139 | (missing) | (missing) | | [facility] | 11:51:07 | [facility] | [...] 57 | (missing) | (missing) | | [facility] | 11:51:07 | [facility] | [...] 13.9 | (missing) | (missing) | | [facility] | 11:51:07 | [facility] | | [...] 139 | (missing) | (missing) | | [facility] | 11:51:07 | [facility] | [...] 73 | (missing) | (missing) | | [facility] | 11:51:07 | [facility] | [...] 139 | (missing) | (missing) | | [facility] | 22:52:07 | [facility] | [...] 3.2 | (missing) | (missing) | | [facility] | 22:52:07 | [facility] | | [...] 16 | (missing) | (missing) | | [facility] | 22:52:07 | [facility] | [...] 3.2 | (missing) | (missing) | | [facility] | 22:52:07 | [facility] | [...] 0.2 | mg/dL | (missing) | | [facility] | 22:52:07 | [facility] | [...] 37 | (missing) | (missing) | | [facility] | 22:52:07 | [facility] | [...] 102 | (missing) | (missing) | | [facility] | 22:52:07 | [facility] | [...] 3.2 | (missing) | (missing) | | [facility] | 22:52:07 | [facility] | [...]
[2025-03-14] MEDS ORDERED: HYDROmorphone HCL 1 MG/ML SYR IV PRN (09:45)
[2025-03-14 09:55] LABS: BASOPHILS 0.3 % (0.1-1.2); EOSINOPHILS 2.1 % (0.7-5.8); LYMPHOCYTES 14.4 % (19.3-51.7); MCH 30.3 PG (25.6-32.2); MCHC 33.6 g/dL (32.2-35.5); MCV 90.2 fL (79.4-94.8); MONOCYTES 7.0 % (4.7-12.5); NEUTROPHILS 75.7 % (34.0-71.1); RBC 3.96 M/uL (3.93-5.22)
[2025-03-14] MEDS ORDERED: ALBUTEROL/IPRATROPIUM 3 ML NEB INH ONE ×2 (10:00→18:00)
[2025-03-14] MEDS ORDERED: LORazepam 1 MG TAB PO ONE (10:00)
[2025-03-14 10:16] LABS: ALT (SGPT) 23.0 U/L (14-59); AST (SGOT) 17.0 U/L (15-37); GLOMERULAR FILTRATION RATE,EST 75.0 mL/min (>60); PROTEIN, TOTAL 6.8 g/dL (6.4-8.2); UREA NITROGEN 6.0 mg/dL (7-18)
[2025-03-14] MEDS ORDERED: ACETAMINOPHEN 500 MG TAB PO ONE (10:30)
[2025-03-14] MEDS ORDERED: FUROSEMIDE 20 MG/2 ML VIAL IV ONE (10:30)
[2025-03-14] MEDS ORDERED: POTASSIUM CHLORIDE 10 MEQ/100 ML BAG IV SCH (10:30)
[2025-03-14 10:45] LABS: CORONAVIRUS COVID-19 AG NEGATIVE (NEGATIVE)
[2025-03-14 11:17] LABS: BLOOD/HGB, URINE NEGATIVE (Negative); KETONE, URINE NEGATIVE (Negative); LEUK ESTERASE, URINE NEGATIVE (negative); NITRITE, URINE NEGATIVE (negative)
[2025-03-14 11:25] LABS: EPITHELIAL CELLS, URINE SQUAMOUS 1+ /lpf (0-1+)
[2025-03-14 11:26] LABS: BACTERIA, URINE NONE SEEN /hpf (negative); CASTS, URINE NONE SEEN \\lpf; CRYSTALS, URINE NONE SEEN (0-1+); REFLEX CULTURE, URINE No (No)
[2025-03-14] MEDS ORDERED: MAGNESIUM SULFATE 2 GM/50 ML BAG IV ONE (11:30)
[2025-03-14] MEDS ORDERED: ENOXAPARIN SODIUM 40 MG/0.4 ML SYR SUB-Q SCH (17:55)
[2025-03-14] MEDS ORDERED: AZITHROMYCIN 250 MG TAB PO SCH (17:57)
[2025-03-14] MEDS ORDERED: ACETAMINOPHEN 325 MG TAB PO PRN (18:00)
[2025-03-14] MEDS ORDERED: DEXTROSE 5% 1,000 ML IV PRN (18:00)
[2025-03-14] MEDS ORDERED: DEXTROSE 50% 50 ML SYR IV PRN ×2 (18:00)
[2025-03-14] MEDS ORDERED: HYDROCODONE/ACETA 7.5/325 TAB PO PRN (18:00)
[2025-03-14] MEDS ORDERED: ZOLPIDEM TARTRATE 5 MG TAB PO PRN (18:00)
[2025-03-14] MEDS ORDERED: GLUCAGON,HUMAN RECOMBINANT 1 MG/ML VIAL SUB-Q PRN (18:00)
[2025-03-14] MEDS ORDERED: IBLOOD GLUCOSE TEST STRIP 1 EA TEST XX PRN (18:00)
[2025-03-14] MEDS ORDERED: LACTATED RINGER'S 1,000 ML IV SCH (18:00)
[2025-03-14] MEDS ORDERED: ALBUTEROL/IPRATROPIUM 3 ML NEB INH PRN (19:15)
[2025-03-14] MEDS ORDERED: ALPRAZolam 0.5 MG TAB PO PRN (19:30)
[2025-03-14] MEDS ORDERED: INSULIN LISPRO 100 UNIT/ML ML SUB-Q SCH (21:00)
[2025-03-14] MEDS ORDERED: MELATONIN 3 MG TAB PO PRN (21:00)
[2025-03-14] MEDS ORDERED: IBLOOD GLUCOSE TEST STRIP 1 EA TEST VI SCH (21:00)
--- NOTE | 2025-03-14 21:23 | NUR ---
PATIENT HAS BEEN USING SALINE TO HER TRACH TO LOOSEN SECRETIONS AND THEN ATTEMPT TO BLOW OUT. SHE CALLED NURSES [facility] TO REPORT SHE COULD NOT GET SECRETIONS TO MOVE AND SHE FELT LIKE SHE IS SUFFOCATING. OXYGEN SATURATION IS CURRENTLY 93% ON 3L OXYGEN PER [facility]XY[facility]. Sadi LAMBERT CALLED TO ASSESS. PATIENT WANTS TO BE SUCTIONED, HAD VERBALIZED WANTING TO MINIMIZE SUCTIONING TO NOT IRRITATE THE TRACH AREA DUE TO BLEEDING RISK WORSENING. R.T. PROVIDING CARE.
[2025-03-14 22:00] VITALS: BP 154/64
[2025-03-14 22:16] VITALS: BP 156/63
[2025-03-15] VITALS (19 sets, daily range): BP systolic 103–142; BP diastolic 48–66
--- NOTE | 2025-03-15 01:46 | NUR ---
Pt admitted to the unit around 1999- intermittent pain, anxiety, and irritability d/t trach site- vitals stable- on 5L trach mask but not tolerating humidification
[2025-03-15 06:10] LABS: BASOPHILS 0.3 % (0.1-1.2); EOSINOPHILS 4.1 % (0.7-5.8); LYMPHOCYTES 25.8 % (19.3-51.7); MCH 30.2 PG (25.6-32.2); MCHC 32.6 g/dL (32.2-35.5); MCV 92.6 fL (79.4-94.8); MONOCYTES 7.2 % (4.7-12.5); NEUTROPHILS 62.2 % (34.0-71.1); RBC 3.91 M/uL (3.93-5.22)
[2025-03-15 06:20] LABS: GLOMERULAR FILTRATION RATE,EST 84.0 mL/min (>60); UREA NITROGEN 5.0 mg/dL (7-18)
--- NOTE | 2025-03-15 07:09 | NUR ---
PATIENT CONTINUES TO REFUSE STAFF ASSISTANCE TO REPOSITION, SHE VERBALIZED, "THIS IS HOW I ALWAYS SLEEP AND ITS WHAT WORKS FOR ME." PATIENT IS RESTING IN BED, LEANING TO LEFT TOWARD BED RAIL, HER HEAD WAS RESTING ON BED RAIL, TOWEL FOOLDED AND PLACED BETWEEN HER HEAD AND THE BED RAIL. SHE SAID THANK YOU, SHE ASKED TO HAVE HER INNER CANNULA OF HER TRACH CLEANED, Sadi JENSEN NOTIFIED OF PATIENT REQUEST, HE SAID, "OK, THANK YOU."
--- NOTE | 2025-03-15 07:23 | NUR ---
Pt still very anxious about her trach site and feels like she is not able to breath. Small amounts of bright bloody sputum throughout the shift.
--- NOTE | 2025-03-15 08:00 | NUR ---
PT APPEARS TO BE ASLEEP SITTING UP IN BED, TRACH MASK OVER TRACK AT 5L'S. WHEN PT AWAKENS SHE WANTS TO BE SUCTION. RT NOTIFIED. ASSESSMENT COMPLETED.
[2025-03-15] MEDS ORDERED: acetaZOLAMIDE 250 MG TAB PO ONE (08:15)
[2025-03-15] MEDS ORDERED: POTASSIUM CHLORIDE 10 MEQ TABCR PO SCH (08:15)
--- NOTE | 2025-03-15 08:50 | NUR ---
report to dr cole and care team on pt status and discuss plan of care. pt has home o2 needs of 3L nc and goal to return to that. pt has specialty dr buck this weds for oliver buck and goal is to get to that specialist.
[2025-03-15] MEDS ORDERED: POTASSIUM CHLORIDE 40 MEQ,LIDOCAINE HCL 1% 40 MG in DEXTROSE 5% 250 ML IV ONE (09:00)
[2025-03-15] MEDS ORDERED: FUROSEMIDE 40 MG TAB PO SCH (09:00)
--- NOTE | 2025-03-15 09:36 | NUR ---
DR. RODRIGUEZ AND CAMILA VALLE, AT BEDSIDE WITH ONE LOVED ONE DISCUSSING PLAN OF CARE. PATIENT COMPLAINING OF COUGH DR. RODRIGUEZ WILL ORDER ROBOTUSSIN.
--- NOTE | 2025-03-15 10:51 | NUR ---
PT NEEDED TO USE THE COMMODE, WE HAD HER PIVOT TO SIT ON THE COMMODE. COMPLETE LINEN CHANGE WAS PERFORMED, AND A HOVER PAD WAS PLACED ON THE BED FOR EASIER PT MOVEMENT ON THE BED. RN HAD ME PLACE LEG COMPRESSION DEVICES ON PT. ROOM AND FLOOR CLEANED, AND TRASH REMOVED.
--- NOTE | 2025-03-15 10:52 | NUR ---
PT SITTING UP IN BED, PERSONAL SEALER OPERATOR AT BEDSIDE, PT COMMUNICATES WITH CAREGIVER AND OR WRITES THINGS DOWN. PT WANTS TO BE SUCTIONED AND RT NOTIFIED.
[2025-03-15] MEDS ORDERED: CIPROFLOXACIN HCL/DEXAMETH 7.5 ML HOME.PACK XX SCH (11:00)
[2025-03-15] MEDS ORDERED: PHARMACY RENAL DOSE ADJUSTMENT 1 DOSE MISC PO SCH (12:00)
--- NOTE | 2025-03-15 13:44 | NUR ---
PT DID NOT LIKE LUNCH AND ONLY ATE A FEW BITES. ORDERED COTTAGE CHEESE AND SUGAR FREE ICE CREAM. PT BP REDONE DUE TO PT KEEPS MOVES HER ARM. EXPLAIND THAT WHEN SHE FEELS IT PUMP UP PLEASE DO NOT MOVE HER ARM. PT UNDERSTOOD.
--- NOTE | 2025-03-15 14:06 | NUR ---
PT APPEARS TO BE RESTING COMFORTABLE AT THIS TIME. SPO2 90 TO 92% AT TIMES, FAMILY REMAINS AT THE BEDSIDE.
--- NOTE | 2025-03-15 14:55 | NUR ---
LAB HERE TO OBTAIN SAMPLE FOR VBG AND CBC
[2025-03-15 15:00] LABS: BASOPHILS 0.5 % (0.1-1.2); EOSINOPHILS 4.6 % (0.7-5.8); LYMPHOCYTES 19.6 % (19.3-51.7); MCH 29.7 PG (25.6-32.2); MCHC 31.4 g/dL (32.2-35.5); MCV 94.5 fL (79.4-94.8); MONOCYTES 8.1 % (4.7-12.5); NEUTROPHILS 66.9 % (34.0-71.1); RBC 3.84 M/uL (3.93-5.22)
[2025-03-15] MEDS ORDERED: GUAIFENESIN/DEXTROMETHORPHAN 5 ML SYRUP PO PRN (15:00)
--- NOTE | 2025-03-15 16:45 | NUR ---
pt contioues to be sleeping resp even and labored at times, but spo2 remain 94% . All family has left and we have let pt sleep. resp 20 per monitor.
--- NOTE | 2025-03-15 17:11 | NUR ---
PT CONTIOUES TO SLEEP AWAKENS WHEN SPOKEN TOO. NO C/O'S ATT HIS TIME, PT HAS NOT COUGHED DURING THIS SLEEPING TIME. SPO2 93%
--- NOTE | 2025-03-15 18:27 | NUR ---
pt attends changed and external catheter placed. pt bladder scaned for 523mls, pt had void a very small amount. while changing her she had a small amount voided. while RT looking for internal canula he found PTs own meds. it is noted to have pain medications and her walet was placed in the lock box in the room. unsure if pt has been self medicating, but now pt will not be able to. pt did ask for a pain pill at this time. will provide pt with pain medications.
--- NOTE | 2025-03-15 18:29 | NUR ---
bariatric bed on order from adam cisneros rn from [facility] charge to order.
[2025-03-15] MEDS ORDERED: LACTATED RINGER'S 1,000 ML IV SCH (18:45)
--- NOTE | 2025-03-15 18:46 | NUR ---
pt now wants a prajapati catheter. notified. New order received.
[2025-03-15] MEDS ORDERED: LIDOCAINE 2% VISCOUS 6 ML SYR TOP ONE (19:00)
--- NOTE | 2025-03-15 19:05 | NUR ---
pt asked to be suctioned at this time while eatting dinner. RT NOTIFIED AT THIS TIME. SPO2 99% ON 3L'S TRACH MASK. PT WILL ALSO LIKE ANXIETY MEDS WHEN SHE CAN
--- NOTE | 2025-03-15 21:08 | NUR ---
Pt resting in bed- mildly anxious- unable to void, placing prajapati- inner cannula changed.
[2025-03-16] VITALS (24 sets, daily range): BP systolic 119–182; BP diastolic 50–104
[2025-03-16 05:35] LABS: BASOPHILS 0.3 % (0.1-1.2); EOSINOPHILS 6.2 % (0.7-5.8); LYMPHOCYTES 25.4 % (19.3-51.7); MCH 30.4 PG (25.6-32.2); MCHC 31.7 g/dL (32.2-35.5); MCV 95.8 fL (79.4-94.8); MONOCYTES 7.0 % (4.7-12.5); NEUTROPHILS 60.5 % (34.0-71.1); RBC 3.82 M/uL (3.93-5.22)
[2025-03-16 05:58] LABS: ALT (SGPT) 18.0 U/L (14-59); AST (SGOT) 14.0 U/L (15-37); GLOMERULAR FILTRATION RATE,EST 72.0 mL/min (>60); PROTEIN, TOTAL 6.5 g/dL (6.4-8.2); UREA NITROGEN 9.0 mg/dL (7-18)
--- NOTE | 2025-03-16 08:02 | NUR ---
PT RESPOSITIONS SELF MORE UPRIGHT IN BED EATING BREAKFAST. XANAX AND PAIN MED PROVIDED PER REQUEST. PT DENIES OTHER NEEDS. BREATHING EVEN AND UNLABORED SATS 90% ON RA CALL LIGHT IN LAP NEEDED ITEMS ON BEDSIDE TABLE
--- NOTE | 2025-03-16 08:31 | NUR ---
MISTAKENLY DOCUMENTED PT ON RA, SHE IS ACTUALLY ON 2 L02 AND HAS BEEN THIS SHIFT. BREAKFAST WELL TOLERATED. PT RESTING IN BED AGREES PAIN MED AND XANAX WERE EFFECTIVE FOR HER. R/T IN TO WORK WITH HER AT THIS TIME
--- NOTE | 2025-03-16 09:32 | NUR ---
R/T DOES TRACH CARE, WELL TOLERATED BY PT. DENIES NEEDS AT THIS TIME.
--- NOTE | 2025-03-16 09:55 | NUR ---
PT C/O BEING COLD OFFERED TO TURN ROOM TEMP UP DUE TO IT IS SET AT 68 PT DID NOT NEED THAT BUT WANTED WARM BLANKET. WARM BLANKET GIVEN. PT MOTHER IS AT THE BEDSIDE.
--- NOTE | 2025-03-16 10:30 | NUR ---
PT RESTING EYES CLOSED SNORING SOFTLY SATS 94%. DC WOOD FLOOR REFINISHER VISITING WITH PT'S MOM ADDRESSING CONCERNS. ALL QUESTIONS ANSWERED
--- NOTE | 2025-03-16 10:55 | NUR ---
Spoke with Ezra and her mom, Migdalia. Pt has had a TBI in the past and lives with her mom. She also has a state paid cg a few hours per day. Pt has a fairly new trach. Per mom this has been problematic as they are unsure of how to care for the trach. They have returned to the ER multiple times. Pt refused to come to the ER this time until she became very ill and septic. Pt uses a walker and a shower chair. They have a narrow ramp to walk up. It is not large enough for a wc. Mom denies needs for any DME. Her complaint is for the 02 tanks as they are difficult for her to carry when she takes Ezra to her appointment. We discussed a portable concentrator and I will contact [facility]. She also asks I let them know she has 8 empty tanks and only 2 full left in the home. Mom denies other needs at this time. Pt resting quietly and sleeping during our conversation. She mouths, "no", when asked if she has any needs. Per mom pt has an appt to have her trach changed tomorrow in [place] at her ENT. No financial or safety concerns. Mom states she does get a food box occassionally.
[2025-03-16] MEDS ORDERED: MORPHINE SULFAT60 MG PO (11:04)
[2025-03-16] MEDS ORDERED: PROMETHAZI6.25 MG/5 PO (11:04)
--- NOTE | 2025-03-16 11:27 | NUR ---
PT CONTINUES TO REST SOUNDLY MOTHER RETURNS TO BEDSIDE.
[2025-03-16] MEDS ORDERED: IPRAT-ALBUT 0.5-3 ML INH (11:33)
[2025-03-16] MEDS ORDERED: NALOXONE HCL4 MG NAS (11:38)
[2025-03-16] MEDS ORDERED: ZOLPIDEM TARTRAT5 MG PO (11:39)
--- NOTE | 2025-03-16 12:34 | NUR ---
PT REFUSES LUNCH PREFERRING TO DOZE. MOTHER LEAVES FROM HOME STATING SHE WILL BE BACK LATER. PT IS RESTING SOUNDLY AWAKENS TO VOICE THEN RETURNS TO RESTING EYES CLOSED. SATS CONSISTANTLY MID TO HIGH 90S ON 3 L02
--- NOTE | 2025-03-16 13:09 | NUR ---
PT AWAKE REQUESTS PAIN AND ANXIETY MEDICATIONS. C/O HER SHOULDER AND UPPER BODY HURTING. TOO EARLY FOR ANXIETY MED, PAIN MEDS ADMINSTERED PER REQUEST. PT AGAIN DECLINES NOON MEAL, OR OTHER SUBSTITUTE.
--- NOTE | 2025-03-16 13:24 | NUR ---
UR CLINICAL REVIEW: [facility] REVIEW ATTEMPT, [facility]EROY INACTIVE. PER KRN REVIEW MEETS INPT FOR SEPSIS SECONDARY TO PNEUMONIA WITH NEED FOR TRACH CARE, RT AND IV ABX. [facility] INPT 03/14/25 @ 2116 ORDER MATCHES REG CLINICALS FAXED TO [facility] FOR AUTH REVIEW DISCHARGE TO HOME WITH HH WHEN STABLE
--- NOTE | 2025-03-16 13:47 | NUR ---
PT S/O AIR HUNGER. SATS REMAIN AT 97% 3L02 R/T COMES AND GIVES NEB TX WELL CHECKING TRACH FOR BLOCKAGE. ANXIETY MED ADMINISTERED REQUESTED EARLIER. PT AGREES SHE FEELS BETTER AFTER INTERVENTIONS. REPOSTIONS SELF IN BED RETURNS TO RESTING EYES CLOSED
--- NOTE | 2025-03-16 14:00 | NUR ---
Called and spoke with [facility]. They have concentrators to have up to 3L. Pt would qualify. They just need and RX and a note stating if it is cont. or pulse. I will notify Dr. Zuleta.
--- NOTE | 2025-03-16 14:18 | NUR ---
PT RESTING SOUNDLY NOW SATS 97% BREATHING EVEN AND UNLABORED
--- NOTE | 2025-03-16 15:07 | NUR ---
CHECKED WITH PT MOTHER REGARDING OXYGEN TANK IN THE BATHROOM TO MAKE SURE IF IT IS PT FROM HOME. PLACED PT SATICKER ON TANK HANDLE.
--- NOTE | 2025-03-16 15:24 | NUR ---
I GOT AR FRESH ICE WATER. GOT THE VISITOR IN THE ROOM FRESH ICE WATER. CLEANED OUT GARBAGE AMD CLEANED UP THE ROOM.
[2025-03-16] MEDS ORDERED: KETOCONAZOLE15 GM TOP (15:25)
[2025-03-16] MEDS ORDERED: LIDOCAINE HCL100 ML MT (15:27)
--- NOTE | 2025-03-16 15:29 | NUR ---
MED REC COMPLETE
--- NOTE | 2025-03-16 15:37 | NUR ---
PT CONTINUES RESTING COMFPORTABLY AT THIS TIME MOTHER AR BEDSIDE. ASKED IF SHE'S GOING TO CONTINUE TO SLEEP BY HER MOTHER PT NODS HER HEAD YES, SATS 97% AT THIS TIME. PT DENIES NEEDS OF
--- NOTE | 2025-03-16 16:16 | NUR ---
Notified Dr. Zuleta of conversation with [place]. He will complete an RX.
--- NOTE | 2025-03-16 16:20 | NUR ---
PT'S MOTHER IN EARLIER REQUESTING PT'S HAIR TO BE WASHED. PT RESTING QUIETLY AT THE TIME. PT AWAKE NOW DENIES OFFER TO WASH HER HAIR STATING SHE WOULD RATHER DO IT TOMORROW. PT WATCHING TV BREATHING UNLABORED SATS 98% SHE MAKE NO REQUEST AT THIS TIME
--- NOTE | 2025-03-16 17:13 | NUR ---
EVENING MEAL ARRIVES PT STATES SHE'S NOT HUNGRY. ALTERNATIVE ITEMS WELL ENSURE OFFERED PT REFUSES. AGREES TO NOTIFY THIS TOOL DESIGN DRAFTSPERSON IF SHE CHANGES HER MIND OR WANTS SOMETHING LATER
--- NOTE | 2025-03-16 18:14 | NUR ---
PT C/O DRY UNCOMFORTABLE AIRWAY R/T NOTIFIED AND COME TO WORK WITH HER. PT AGREES AFTERWARD SHE FEELS BETTER. RESTING IN BED WATCHING TV AT THIS TIME FRESH H20 TO BEDSIDE
--- NOTE | 2025-03-16 20:00 | NUR ---
PATIENT HAD BM DURING SHIFT CHANGE REPORT. SHE IS NOW RESTING IN BED, EYES CLOSED RESPIRATORY RATE 14/MIN., OXYGEN SATURATION 97% ON 3L TRACH MASK. NO DISTRESS NOTED AT THIS TIME.
--- NOTE | 2025-03-16 21:15 | NUR ---
PATIENT RESTING QUIELTY IN BED EYES CLOSED, RESPIRATIONS REGULAR, ALERT TO NAME FOR HS MEDICATIONS AND ACCU CHECK. PATIENT REPORTS PAIN 9/10 AND ALSO FEELS VERY ANXIOUS. PATIENT ADMINISTERED NORCO PRN AND PRN XANAX AT THIS TIME. SHE ASKED FOR CHEESE, THIS IS NOT STOCKED, THIS RN TOLD PATIENT I WOULD CALL OTHER DEPTS TO TRY TO FIND SOME. PATIENT ASKED FOR VANILLA PUDDING THIS IS SUPPLIED. PATIENT MOUTHED THANK YOU, AND HAS NO FURTHER REQUESTS AT THIS TIME. ASSESSMENT COMPLETE.
--- NOTE | 2025-03-16 21:51 | NUR ---
PT USED THE COMMODE PLACED NEXT TO HER BED. PT URINATED. PT'S BED WAS REARRANGED, MOVING THE DRAW SHEET DOWN AND PLACING A NEW JOSE PAD ON THE BED. THE RN AND I PLACED PILLOWS UNDER THE RIGHT SIDE OF THE PT, SHE REQUESTED TO LAY ON HER LEFT SIDE. GOT THE PT FRESH ICE WATER. PT HAS THE CALL LIGHT ON HER LAP AND IS REQUESTING NOTHING MORE AT THIS TIME.
--- NOTE | 2025-03-16 23:22 | NUR ---
PATIENT CALLED [facility]UR[facility] TO REQUEST R.T. TO SUCTION TRACH, Sadi CUNNINGHAM CALLED HE CAME RIGHT UP, SUCTIONED, HER REPORTED TO THIS RN HE DID NOT GET ANYTHING OUT, PATIENT THEN SAID SHE IS HUNGRY, STRING CHEESE AND CRACKER PROVIDED PER HER REQUEST. SHE MOUTHED THANK YOU, SHE DENIES ANY OTHER NEEDS AT THIS TIME.
[2025-03-17] VITALS: BP 135/68
[2025-03-17 06:27] VITALS: BP 155/75
--- NOTE | 2025-03-17 07:25 | NUR ---
REPORT RECEIVED FROM WALL MAN ROSIE CHÁVEZ.
--- NOTE | 2025-03-17 07:50 | NUR ---
PATIENT IS LYING IN BED WITH EYES CLOSED AND RESPIRATIONS ARE EVEN AND UNLABORED. ELLI ACEVEDO IS IN THE ROOM AT THIS TIME. CALL LIGHT AND PERSONAL BELONGINGS ARE WITHIN REACH.
--- NOTE | 2025-03-17 08:04 | NUR ---
HOURLY ROUNDING.PATIENT LAYING IN BED, MOUTHED QUESTIONS "WHEN IS BREAKFEAST" "WHATS MY BLOOD SUGAR". BOARD HAS BEEN UPDATED AND CALL LIGHT PLACED WITHIN REACH
--- NOTE | 2025-03-17 08:06 | NUR ---
HOURLY ROUNDING PATIENT REQUEST WANTING SUCTION NURSE HAS BEEN NOTIFIED
--- NOTE | 2025-03-17 08:30 | NUR ---
PATIENT IS LYING IN BED WITH HOB ELEVATED. PATIENT IS EATING BREAKFAST AND WATCHING TV. CALL LIGHT AND PERSONAL BELONGINGS ARE WITHIN REACH.
--- NOTE | 2025-03-17 08:44 | NUR ---
, RESPIRATORY THERAPIST CAME TO THE BEDSIDE AND SUCTIONED PATIENT AT THIS TIME. PATIENOXYGEN INCREASED TO 3 L BY TRACH MASK. CALL LIGHT AND PERSONAL BELONGINGS ARE WITHIN REACH.
--- NOTE | 2025-03-17 09:06 | NUR ---
AND [facility]ARE[place], RESPIRATORY THERAPIST ARE IN THE ROOM AT THIS TIME.
--- NOTE | 2025-03-17 09:30 | NUR ---
Spoke with Kris. VALLE in the room. Updated Dr. Zuleta has ordered a portable concentrator for her. I will fax her chart and RX this morning. They will contact her when it is ready. Updated Rn pt will need to go home with a [place] 02 tank if the tank she came in with is not available.
[2025-03-17 09:44] VITALS: BP 155/73
[2025-03-17 09:46] VITALS: BP 155/73
--- NOTE | 2025-03-17 09:50 | NUR ---
FELDER CATHETER EMPTIED OF 800 ML OF URINE. FELDER CATHETER REMOVED PER MD ORDER PRIOR TO DISCHARGE. RESPIRATORY THERAPY REMAINS IN THE ROOM WITH ROSIE CEBALLOS. CALL LIGHT AND PERSONAL BELONGINGS ARE WITHIN REACH. TV IS ON.
--- NOTE | 2025-03-17 10:23 | NUR ---
PATIENT IS LYING IN BED WITH EYES OPEN AND RESPIRATIONS ARE EVEN AND UNLABORED. TV IS ON. TRACH IN PLACE WITH 3L BY TRACH MASK. PATIENT IS NOT COUGHING AT THIS TIME. TRACH COPLETE BY VANNESSA THE RESPIRATORY THERAPIST EARLIER THIS MORNING. LUNG SOUNDS ARE CLEAR THROUGHOUT. TURBINE BLADE ASSEMBLER IN PLACE AND THE PATIENT IS IN NORMAL SINUS RHYTHM. NO EDEMA NOTED. SENSATION INTACT AND PATIENT REPORTS NO NUMBNESS OR TINLGING. RADIAL AND PEDAL PULSES AARE STRONG BILATERALLY. CAPILLARY REFILL IN THE UPPER AND LOWER EXTREMITIES IS LESS THAN SECONDS BILATERALLY. IV SITE IS CLEAN, DRY, AND INTACT. IV IS SALINE LOCKED. PATIENT IS ON A 60 GRAM CARB DIET. BOWEL TONES ARE ACTIVE IN ALL FOUR QUADRANTS. PATIENT REPORTS NO NAUSEA. PATIENT RATED PAIN 8/10 IN THE RIGHT FOOT AND IS REQUESTING SOMETHING FOR PAIN AT THIS TIME. FELDER CATHETER REMOVED AND PATIENT IS DUE TO VOID PRIOR TO BEING DICHARGED TODAY. PATIENT IS A 1PA TO THE BEDSIDE COMMODE. PATIENT STATED NO FURTHER NEEDS AT THIS TIME. CALL LIGHT AND PERSONAL BELONGINGS ARE WITHIN REACH.
[2025-03-17] MEDS ORDERED: LEVOFLOXACIN750 MG PO (11:06)
[2025-03-17] MEDS ORDERED: XANAX0.5 MG PO (11:07)
--- NOTE | 2025-03-17 11:07 | NUR ---
PATIENT IS LYING IN BED WITH EYS CLOSED AND RESPIRATIONS ARE EVEN AND UNLABORED. TRACH MASK REMAINS IN PLACE. CALL LIGHT AND PERSONAL BELONGINGS ARE WITHIN REACH.
--- NOTE | 2025-03-17 11:58 | NUR ---
FACESHEET, ORDER, H&P AND DC SUMMARY FAXED TO [facility] FOR PORTABLE OXYGEN CONCENTRATOR.
--- NOTE | 2025-03-17 14:22 | NUR ---
HH orders left for Dr. Zuleta to sign. for [facility].
== END 2025-03-17 12:40 | disposition home or self-care (01) | DRG 871 ==
LOC: ED 09:21 → MS 17:56 → ED 17:56 → CCU 18:24
PROVIDERS: Emergency Medicine; ADMIT Student in an Organized Health Care Education/Training Program; ATTEND Student in an Organized Health Care Education/Training Program
DX: A41.9 Sepsis, unspecified organism (principal); J18.9 Pneumonia, unspecified organism; E87.3 Alkalosis; M79.7 Fibromyalgia; F25.1 Schizoaffective disorder, depressive type; F17.210 Nicotine dependence, cigarettes, uncomplicated; E87.6 Hypokalemia; E83.42 Hypomagnesemia; E11.9 Type 2 diabetes mellitus without complications; F32.9 Major depressive disorder, single episode, unspecified; I10 Essential (primary) hypertension; G47.00 Insomnia, unspecified; K76.9 Liver disease, unspecified; F41.0 Panic disorder [episodic paroxysmal anxiety]; Z93.0 Tracheostomy status; Z98.890 Other specified postprocedural states; Z90.710 Acquired absence of both cervix and uterus; Z98.1 Arthrodesis status; Z79.84 Long term (current) use of oral hypoglycemic drugs; Z79.85 Long-term (current) use of injectable non-insulin antidiabetic drugs; Z79.899 Other long term (current) drug therapy; Z86.711 Personal history of pulmonary embolism; Z87.442 Personal history of urinary calculi; Z87.81 Personal history of (healed) traumatic fracture; Z88.0 Allergy status to penicillin; Z88.1 Allergy status to other antibiotic agents; Z88.5 Allergy status to narcotic agent; Z88.8 Allergy status to other drugs, medicaments and biological substances
CPT/HCPCS: 36415; 36592; 51702; 51798; 71045; 71260; 74177; 80048; 80053; 81001; 82803; 83605; 83735; 83880; 84484; 85025; 94640; 94799; A9270; A9270-GY; J0696; J1171; J1650; J1815; J1938; J3475; J3480; J3490; J7060; J7121; Q9967

== ENCOUNTER 2025-04-12 13:20 | Emergency (ER) | payer OTHER ==
[~2025-04-12] VITALS: Ht 162.6 cm; Wt 121.9 kg
--- OUTSIDE RECORDS SUMMARY | ~2025-04-12 | XMS | Continuity of Care Document ---
Demographics + + + | Address | [address] [address] | | | [place] [address] | + + + | Preferred Language | Unknown | + + + | Marital Status | | + + + | Orthodox Affiliation | Unknown | + + + | Race | White | + + + | Ethnic Group | Not or | + + + Author + + + | Author | [facility] | + + + | Organization | [facility] | + + + | Address | [address] [facility] [address] | | | [place] [address] | + + + | Phone | | + + + Care Team Providers + + + + | Care Motion Study Analyst Name | Role | Phone | + [...] + + | 2025-02-10 | Tony | Isaías - | Rash [...] Moderate | | 00:00 | | [facility] [...] Mild | | 00:00 | [facility] [...] + + | 2025-02-10 | Tony | Mariamapiriasa - | Rash | Moderate | | [...] (no date) | LIDOCAINE 2% VISCOUS | [facility] | | | | [facility] | + + + + | (no date) | Lurasidone HCl | [facility] | [facility] | + + + + | (no date) | Lurasidone HCl | [facility] | [facility] | [facility] | + + + + | (no date) | Lurasidone HCl | [facility] | [facility] | [facility] | + + + + | (no date) | Lurasidone HCl | [facility] | | | | [facility] | + + + + | (no date) | LURASIDONE HCL | [facility] | | | | [facility] | + + + + | (no date) | LURASIDONE HCL | [facility] | | | | [facility] | + + + + | (no date) | LURASIDONE HCL | [facility] | | | | [facility] | + + + + | (no date) | LURASIDONE HCL | [facility] | | | | [facility] | + + + + | 2025-02-07 00:00 | LORAZEPAM | [facility] | | | | [facility] | + + + + | 2025-02-07 00:00 | LORAZEPAM | [facility] | | | | [facility] | + + + + | 2025-02-07 00:00 | LORAZEPAM | [facility] | | | | [facility] | + + + + | (no date) | OXYCODONE | [facility] | | | HCL/ACETAMINOPHEN | [facility] | + + + + | (no date) | OXYCODONE | [facility] | | | HCL/ACETAMINOPHEN | [facility] | + + + + | (no date) | OXYCODONE | [facility] | | | HCL/ACETAMINOPHEN | [facility] | + + + + | (no date) | OXYCODONE | [facility] | | | HCL/ACETAMINOPHEN | [facility] | + + + + | (no date) | OXYCODONE | [facility] | | | HCL/ACETAMINOPHEN | [facility] | + + + + | (no date) | OXYCODONE HCL | [facility] | | | | [facility] | + + + + | (no date) | OXYCODONE HCL | [facility] | | | | [facility] | + + + + | (no date) | OXYCODONE HCL | [facility] | | | | [facility] | + + + + | (no date) | OXYCODONE HCL | [facility] | | | | [facility] | + + + + | (no date) | OXYCODONE HCL | [facility] | | | | [facility] | + + + + | (no date) | METHYLPHENIDATE HCL | [facility] | | | | [facility] | + + + + | (no date) | METHYLPHENIDATE HCL | [facility] | | | | [facility] | + + + + | (no date) | METHYLPHENIDATE [facility]CL | [facility] | [facility] | + + + + | (no date) | METHYLPHENIDATE HCL | [facility] | | | | [facility] | + + + + | (no date) | METHYLPHENIDATE HCL | [facility] | | | | [facility] | + + + + | (no date) | Lurasidone HCl | [facility] | [facility] | + + + + | (no date) | Lurasidone HCl | [facility] | | | | [facility] | + + + + | (no date) | Lurasidone HCl | [facility] | | | | [facility] | + + + + | (no date) | Lurasidone HCl | [facility] | | | | [facility] | + + + + | (no date) | Lurasidone HCl | [facility] | | | | [facility] | + + + + | 2025-03-17 00:00 | ALPRAZOLAM | [facility] | | | | [facility] | + + + + | (no date) | IPRATROPIUM/ALBUTEROL | [facility] | | | SULFATE | [facility] | + + + + | (no date) | DULAGLUTIDE | [facility] | [facility] | + + + + | (no date) | DULAGLUTIDE | [facility] | | | | [facility] | + + + + | (no date) | DULAGLUTIDE | [facility] | | | [facility] | + + + + | (no date) | DULAGLUTIDE | [facility] | [facility] | [facility] | + + + + | (no date) | DULAGLUTIDE | [facility] | | | | [facility] | + + + + | (no date) | DULAGLUTIDE | [facility] | | | [facility] | + + + + | (no date) | DULAGLUTIDE | [facility] | | | | [facility] | + + + + | (no date) | DULAGLUTIDE | [facility] | | | | [facility] | + + + + | (no date) | DULAGLUTIDE | [facility] | | | | [facility] | + + + + | (no date) | DULAGLUTIDE | [facility] | | | | [facility] | + + + + | (no date) | Naloxone HCl | [facility] | | | | [facility] | + + + + | 2025-01-30 00:00 | POTASSIUM CHLORIDE | [facility] | | | | [facility] | + + + + | 2025-01-30 00:00 | POTASSIUM CHLORIDE | [facility] | | | | [facility] | + + + + | 2025-01-30 00:00 | POTASSIUM CHLORIDE | [facility] | | | | [facility] | + + + + | 2025-01-30 00:00 | POTASSIUM CHLORIDE | [facility] | | | | [facility] | + + + + | 2025-03-13 00:00 | POTASSIUM CHLORIDE | [facility] | | | | [facility] | + + + + | (no date) | SULFASALAZINE | [facility] | | | | [facility] | + + + + | (no date) | SULFASALAZINE | [facility] | | | | [facility] | + + + + | (no date) | SULFASALAZINE | [facility] | | | | [facility] | + + + + | (no date) | SULFASALAZINE | [facility] | | | | [facility] | + + + + | (no date) | SULFASALAZINE | [facility] | | | | [facility] | + + + + | (no date) | | [facility] | | | SULFAMETHOXAZOLE/TRIMETHOPR | [facility] | | | IM | | + + + + | (no date) | | [facility] | | | SULFAMETHOXAZOLE/TRIMETHOPR | [facility] | | | IM | | + + + + | (no date) | | [facility] | | | SULFAMETHOXAZOLE/TRIMETHOPR | [facility] | | | IM | | + + + + | (no date) | | [facility] | | | SULFAMETHOXAZOLE/TRIMETHOPR | [facility] | | | IM | | + + + + | (no date) | LAMOTRIGINE | [facility] | | | | [facility] | + + + + | (no date) | LAMOTRIGINE | [facility] | | | | [facility] | + + + + | (no date) | LAMOTRIGINE | [facility] | | | | [facility] | + + + + | (no date) | LAMOTRIGINE | [facility] | | | | [facility] | + + + + | (no date) | LAMOTRIGINE | [facility] | | | | [facility] | + + + + | (no date) | GLIMEPIRIDE | [facility] | | | | [facility] | + + + + | (no date) | GLIMEPIRIDE | [facility] | | | | [facility] | + + + + | (no date) | GLIMEPIRIDE | [facility] | | | [facility] | + + + + | (no date) | GLIMEPIRIDE | [facility] | | | | [facility] | + + + + | (no date) | GLIMEPIRIDE | [facility] | | | | [facility] | + + + + | 2025-01-30 00:00 | FUROSEMIDE | [facility] | | | | [facility] | + + + + | 2025-01-30 00:00 | FUROSEMIDE | [facility] | | | | [facility] | + + + + | 2025-01-30 00:00 | FUROSEMIDE | [facility] | | | | [facility] | + + + + | 2025-01-30 00:00 | FUROSEMIDE | [facility] | | | | [facility] | + + + + | 2025-03-13 00:00 | FUROSEMIDE | [facility] | | | | [facility] | + + + + | (no date) | KETOCONAZOLE | [facility] | | | | [facility] | + + + + | (no date) | CIPROFLOXACIN HCL | [facility] | | | | [facility] | + + + + | (no date) | CIPROFLOXACIN HCL | [facility] | | | | [...] + | 2025-03-17 00:00 | LEVOFLOXACIN | [facility] | | | | [facility] | + + + + | (no date) | MIRTAZAPINE | [facility] | | | | [facility] | + + + + | (no date) | MIRTAZAPINE | [facility] | | | | [facility] | + + + + | (no date) | MIRTAZAPINE | [facility] | | | | [facility] | + + + + | (no date) | MIRTAZAPINE | [facility] | | | | [facility] | + + + + | (no date) | MIRTAZAPINE | [facility] | | | | [facility] | + + + + | (no date) | DULOXETINE HCL | [facility] | | | | [facility] | + + + + | (no date) | DULOXETINE HCL | [facility] | | | | [facility] | + + + + | (no date) | DULOXETINE HCL | [facility] | | | | [facility] | + + + + | (no date) | DULOXETINE HCL | [facility] | | | | [facility] | + + + + | (no date) | DULOXETINE HCL | [facility] | | | | [facility] | + + + + | (no date) | DULOXETINE HCL | [facility] | | | | [facility] | + + + + | (no date) | DULOXETINE HCL | [facility] | | | | [facility] | + + + + | (no date) | DULOXETINE HCL | [facility] | | | | [facility] | + + + + | (no date) | DULOXETINE HCL | [facility] | | | | [facility] | + + + + | (no date) | DULOXETINE HCL | [facility] | | | | [facility] | + + + + | (no date) | ZOLPIDEM TARTRATE | [facility] | | | | [facility] | + + + + | (no date) | ZOLPIDEM TARTRATE | [facility] | | | | [facility] | + + + + | (no date) | ZOLPIDEM TARTRATE | [facility] | | | | [facility] | + + + + | (no date) | ZOLPIDEM TARTRATE | [facility] | | | | [facility] | + + + + | (no date) | ZOLPIDEM TARTRATE | [facility] | | | | [facility] | + + + + | (no date) | ZOLPIDEM TARTRATE | [facility] | | | | [facility] | + + + + | (no date) | TRAZODONE HCL | [facility] | | | | [facility] | + + + + | (no date) | TRAZODONE HCL | [facility] | | | | [facility] | + + + + | (no date) | TRAZODONE HCL | [facility] | | | | [facility] | + + + + | (no date) | TRAZODONE HCL | [facility] | | | | [facility] | + + + + | (no date) | TRAZODONE HCL | [facility] | | | | [facility] | + + + + | (no date) | TRAZODONE HCL | [facility] | | | | [facility] | + + + + | (no date) | TRAZODONE HCL | [facility] | | | | [facility] | + + + + | (no date) | TRAZODONE HCL | [facility] | | | | [facility] | + + + + | (no date) | TRAZODONE HCL | [facility] | | | | [facility] | + + + + | (no date) | ASENAPINE MALEATE | [facility] | | | | [facility] | + + + + | (no date) | ASENAPINE MALEATE | [facility] | | | | [facility] | + + + + | (no date) | ASENAPINE MALEATE | [facility] | | | | [facility] | + + + + | (no date) | ASENAPINE MALEATE | [facility] | [facility] | + + + + | (no date) | ASENAPINE MALEATE | [facility] | | | | [facility] | + + + + | (no date) | METFORMIN HCL | [facility] | | | | [facility] | + + + + | (no date) | METFORMIN HCL | [facility] | [facility] | [facility] | + + + + | (no date) | METFORMIN HCL | [facility] | | | | [facility] | + + + + | (no date) | METFORMIN HCL | [facility] | | | | [facility] | + + + + | (no date) | METFORMIN HCL | [facility] | | | | [facility] | + + + + | (no date) | MORPHINE SULFATE | [facility] | | | | [facility] | + + + + | (no date) | HYDROmorphone HCL | [facility] | | | | [facility] | + + + + | (no date) | HYDROmorphone HCL | [facility] | | | | [facility] | + + + + | (no date) | HYDROmorphone HCL | [facility] | | | | [facility] | + + + + | (no date) | CHLORPROMAZINE HCL | [facility] | | | | [facility] | + + + + | (no date) | CHLORPROMAZINE HCL | [facility] | | | | [facility] | + + + + | (no date) | CHLORPROMAZINE HCL | [facility] | | | | [facility] | + + + + | (no date) | CHLORPROMAZINE HCL | [facility] | | | | [facility] | + + + + | (no date) | CHLORPROMAZINE HCL | [facility] | | | | [facility] | + + + + | (no date) | CHLORPROMAZINE HCL | [facility] | | | | [facility] | + + + + | (no date) | CHLORPROMAZINE HCL | [facility] | | | | [facility] | + + + + | (no date) | CHLORPROMAZINE HCL | [facility] | | | | [facility] | + + + + | (no date) | CHLORPROMAZINE HCL | [facility] | | | | [facility] | + + + + | (no date) | CHLORPROMAZINE HCL | [facility] | | | | [facility] | + + + + | (no date) | PROMETHAZINE HCL | [facility] | | | | [facility] | + + + + | (no date) | PROMETHAZINE HCL | [facility] | | | | [facility] | + + + + | (no date) | PROMETHAZINE HCL | [facility] | | | | [facility] | + + + + | (no date) | PROMETHAZINE HCL | [facility] | | | | [facility] | + + + + | (no date) | PROMETHAZINE HCL | [facility] | | | | [facility] | + + + + Problems + + + + | date | description | facility | + + + + | 2025-01-23 00:00 | Attention to tracheostomy | [facility] | | | | [facility] | + + + + | 2025-01-23 00:00 | Attention to tracheostomy | [facility] | | | | [facility] | + + + + | 2025-01-23 00:00 | [facility] | [facility] | + + + + | 2025-01-23 00:00 | [facility]ostomy [facility] | [facility] | + + + + | 2025-01-23 00:00 | [facility] to tracheostomy [facility] | | | | [facility] | + + + + | 2025-01-25 00:00 | Tracheostomy complication | [facility] | | | | [facility] | + + + + | 2025-01-25 00:00 | Tracheostomy complication | [facility] | | | | [facility] | + + + + | 2025-01-25 00:00 | Tracheostomy complication | [facility] | | | | [facility] | + + + + | 2025-01-25 00:00 | Tracheostomy complication | [facility] | | | | [facility] | + + + + | 2025-01-25 00:00 | Tracheostomy complication | [facility] | | | | [facility] | + + + + | 2025-01-30 00:00 | Chronic pain | [facility] | | | | [facility] | + + + + | 2025-01-30 00:00 | Chronic pain | [facility] | | | | [facility] | + + + + | 2025-01-30 00:00 | Chronic pain | [facility] | | | | [facility] | + + + + | 2025-01-30 00:00 | Chronic pain | [facility] | | | | [facility] | + + + + | 2025-01-30 00:00 | Chronic pain | [facility] | | | | [facility] | + + + + | 2025-01-31 00:00 | Congestive heart failure | [facility] | | | | [facility] | + + + + | 2025-01-31 00:00 | Congestive heart failure | [facility] | | | | [facility] | + + + + | 2025-01-31 00:00 | Congestive heart failure | [facility] | | | | [facility] | + + + + | 2025-01-31 00:00 | Congestive heart failure | [facility] | | | | [facility] | + + + + | 2025-01-31 00:00 | Congestive heart failure | [facility] | | | | [facility] | + + + + | 2025-01-31 00:00 | Deficient knowledge of | [facility] | | | tracheostomy home care | [facility] | + + + + | 2025-01-31 00:00 | Deficient knowledge of | [facility] | | | tracheostomy home care | [facility] | + + + + | 2025-01-31 00:00 | Deficient knowledge of | [facility] | | | tracheostomy home care | [facility] | + + + + | 2025-01-31 00:00 | Deficient knowledge of | [facility] | | | tracheostomy home care | [facility] | + + + + | 2025-01-31 00:00 | Deficient knowledge of | [facility] | | | tracheostomy home care | [facility] | + + + + | 2025-02-04 00:00 | Shortness of breath | [facility] | | | | [facility] | + + + + | 2025-02-04 00:00 | Shortness of breath | [facility] | | | | [facility] | + + + + | 2025-02-04 00:00 | Shortness of breath | [facility] | | | | [facility] | + + + + | 2025-02-04 00:00 | Shortness of breath | [facility] | | | | [facility] | + + + + | 2025-02-21 00:00 | Encounter for medical | [facility] | | | screening examination | [facility] | + + + + | 2025-02-21 00:00 | Encounter for medical | [facility] | | | screening examination | [facility] | + + + + | 2025-03-13 00:00 | Viral infection | [facility] | | | | [facility] | + + + + | 2025-03-14 00:00 | Hypomagnesemia | [facility] | | | | [facility] | + + + + | 2025-03-14 00:00 | Hypokalemia | [facility] | | | | [facility] | + + + + | 2025-03-14 00:00 | Pneumonia | [facility] | | | | [facility] | + + + + Procedures + + + + | date | description | facility | + + + + | 2025-03-14 00:00 | INTRODUCE OF OTH | [facility] | | | ANTI-INFECT INTO PERIPH | [facility] | | | VEIN, PERC APPROACH | | + + + + [...] 7 | + + + + + +-------+ [...] 9 | + + + + + +--------+ [...] 10 | + + + + + +-------+ [...] 11 | + + + + + +-------+ [...] 13 | + + + + + +-------+---------+ [...] +-------+---------+ + + + | Result panel 14 | + + + + + +------+---------+ [...] +------+---------+ + + + | Result panel 15 | + + + + + +--------+---------+ [...] +--------+---------+ + + + | Result panel 16 | + + + + + +------+ [...] 17 | + + + + + +---------+ [...] 19 | + + + + + +-------+ + + | Potassium | 2025-01-29 | | 3.7 | (missing) | (missing) | | [facility] | 22:52:07 | [facility] | [...] 21 | + + + + + +------+ [...] 22 | + + + + + +--------+ [...] 23 | + + + + + +-------+---------+ [...] +-------+---------+ + + + | Result panel 24 | + + + + + +-------+ + + | Prot | 2025-01-29 | | 6.6 | (missing) | (missing) | | [facility] | 22:52:07 | [facility] | | | | + + + +-------+ + + + + | Result panel 25 | + + + + + +-------+ [...] 27 | + + + + + +--------+ [...] 28 | + + + + + +-------+---------+ + | [facility] | 2025-01-29 | | 0.2 | mg/dL | (missing) | | [facility] | 22:52:07 | [facility] | | | | [facility] | | | | | | [facility] | | | | + + + +-------+---------+ + + + | Result panel 29 [...] 30 | + + + + + +------+ [...] 31 | + + + + + +-------+ [...] 32 | + + + + + +-------+ [...] 34 | + + + + + +--------+ [...] 12.0 | (missing) | (missing) | | [facility] | 22:52:07 | [facility] | | | [...] 40 | + + + + + +-------+ [...] 46 | + + + + + +-------+---------+ [...] +-------+---------+ + + + | Result panel 47 | + + + + + +------+---------+ [...] +------+---------+ + + + | Result panel 48 | + + + + + +--------+---------+ [...] +--------+---------+ + + + | Result panel 49 | + + + + + +------+ [...] 50 | + + + + + +---------+ [...] 53 | + + + + + +-------+ + + | Chloride | 2025-01-29 | | 102 | (missing) | (missing) | | [facility] | 22:52:07 | [facility] | | | | + + + +-------+ + + + + | Result panel 54 | + + + + + +------+ [...] 55 | + + + + + +--------+ [...] 56 | + + + + + +-------+---------+ + | Calcium | 2025-01-29 | | 8.8 | mg/dL | (missing) | | [facility] | 22:52:07 | [facility] | | | | | | [facility] - [facility] | | | [facility] | | | | + + + +-------+---------+ + + + | Result panel 57 [...] 61 | + + + + + +-------+---------+ [...] +-------+---------+ + + + | Result panel 62 | + + + + + +------+ + + | AST | 2025-01-29 | | 16 | (missing) | (missing) | | [facility] | 22:52:07 | [facility] | | | | + + + +------+ + + + + | Result panel 63 | + + + + + +------+ [...] 118 | (missing) | (missing) | | [facility] [...] 66 | + + + + + +--------+ [...] 67 | + + + + + +--------+ [...] 68 | + + + + + +--------+ [...] 73 | + + + + + +-------+ [...] 76 | + + + + + +-------+ [...] 0.5 | (missing) | (missing) | | [facility] | 22:52:07 | [facility] | | | | + + + +-------+ + + + + | Result panel 79 | + + + + + +-------+---------+ + | Glucose | 2025-01-29 | | 225 | mg/dL | (missing) | | [facility] | 22:52:07 | [facility] | | | | + + + +-------+---------+ + + + | Result panel 80 | + + + + + +------+---------+ + | BUN | 2025-01-29 | | 16 | mg/dL | (missing) | | [facility] | 22:52:07 | [facility] | | | | + + + +------+---------+ + + + | Result panel 81 | + + + + + +--------+---------+ [...] +--------+---------+ + + + | Result panel 82 | + + + + + +------+ [...] 83 | + + + + + +---------+ [...] 85 | + + + + + +-------+ [...] + + + + | Result panel 86 | + + + + + +-------+ [...] 88 | + + + + + +--------+ [...] 89 | + + + + + +-------+---------+ + | Calcium | 2025-01-29 | | 8.8 | mg/dL | (missing) | | [facility] | 22:52:07 | [facility] | | | | + + + +-------+---------+ + + + | Result panel 90 [...] 3.2 | (missing) | (missing) | | [facility] | 22:52:07 | [facility] | | | [...] 95 | + + + + + +------+ [...] 96 | + + + + + +------+ [...] 100 | + + + + + +--------+ [...] 101 | + + + + + +--------+ [...] 102 | + + + + + +--------+ [...] 106 | + + + + + +-------+ [...] 109 | + + + + + +-------+ [...] 112 | + + + + + +-------+---------+ + | Glucose | 2025-01-29 | | 225 | mg/dL | (missing) | | [facility] | 22:52:07 | [facility] | | | | + + + +-------+---------+ + + + | Result panel 113 | + + + + + +------+---------+ [...] +------+---------+ + + + | Result panel 114 | + + + + + +--------+---------+ + | Creat | 2025-01-29 | | 0.94 | mg/dL | (missing) | | [facility] | 22:52:07 | [facility] | | | | + + + +--------+---------+ + + + | Result panel 115 | + + + + + +------+ [...] 116 | + + + + + +---------+ [...] 118 | + + + + + +-------+ [...] 119 | + + + + + +-------+ [...] 121 | + + + + + +--------+ [...] 122 | + + + + + +-------+---------+ [...] +-------+---------+ + + + | Result panel 123 | + + + + + +-------+ + + | Prot | 2025-01-29 | | 6.6 | (missing) | (missing) | | [facility] | 22:52:07 | [facility] | | | [...] 125 | + + + + + +-------+ + + | Globulin | 2025-01-29 | | 3.2 | (missing) | (missing) | | [facility] | 22:52:07 | [facility] | | | [...] 128 | + + + + + +------+ [...] 129 | + + + + + +------+ [...] 118 | (missing) | (missing) | | [facility] | 22:52:07 | [facility] | | | | + + + +-------+ + + + + | Result panel 131 | + + + + + +-------+ [...] 132 | + + + + + +--------+ [...] 0.9 | (missing) | (missing) | | [facility] | 10:21:07 | [facility] | | | [...] | | S-CoV-2 Ag | | - [facility] | | | | Resp Ql | | [facility] [place] | | | | [...] 144 | + + + + + +---------+ [...] + + + | Bilirub Ur | 2025-03-14 | | NEGATIVE | [...] + + + + + + | Ketonemarv Ur | 2025-03-14 | | NEGATIVE | [...] 148 | + + + + + +---------+ [...] 149 | + + + + + + + + + | Hgb Ur Ql | 2025-03-14 | | NEGATIVE | (missing) [...] 151 | + + + + + +------+ + + | Prot Ur | 2025-03-14 | | 30 | (missing) | (missing) | | [facility] | 11:10:07 | [facility] | | | [...] SEEN | (missing) | (missing) | | [facility] | 11:10:07 | [facility] | | [...] 163 | + + + + + +---------+ [...] 164 | + + + + + +--------+ [...] 165 | + + + + + +--------+ [...] 166 | + + + + + +-------+ [...] 167 | + + + + + +-------+ [...] 169 | + + + + + +-------+---------+ [...] +-------+---------+ + + + | Result panel 170 | + + + + + +-----+---------+ + | BUN | 2025-03-16 | | 9 | mg/dL | (missing) | | [facility] | 05:15:07 | [facility] | | | | + + + +-----+---------+ + + + | Result panel 171 | + + + + + +--------+---------+ [...] +--------+---------+ + + + | Result panel 172 | + + + + + +------+ [...] 175 | + + + + + +-------+ + + | Sodium | 2025-03-16 | | 138 | (missing) | (missing) | | [facility] | 05:15:07 | [facility] | | | [...] 178 | + + + + + +------+ [...] 180 | + + + + + +-------+---------+ + | Calcium | 2025-03-16 | | 8.6 | mg/dL | (missing) | | [facility] | 05:15:07 | [facility] | | | | + + + +-------+---------+ + + + | Result panel 181 | + + + + + +-------+---------+ + | Magnesium | 2025-03-16 | | 2.3 | mg/dL | (missing) | | [facility] | 05:15:07 | [facility] | | | | + + + +-------+---------+ + + + | Result panel 182 | + + + + + +-------+ + + | Prot | 2025-03-16 | | 6.5 | (missing) | (missing) | | [facility] | 05:15:07 | [facility] | | | | + + + +-------+ + + + + | Result panel 183 | + + + + + +-------+ + + | Albumin | 2025-03-16 | | 3.1 | (missing) | (missing) | | [facility] | 05:15:07 | [facility] | | | | + + + +-------+ + + + + | Result panel 184 | + + + + + +-------+ [...] 185 | + + + + + +--------+ [...] 186 | + + + + + +--------+ [...] 187 | + + + + + +-------+---------+ [...] +-------+---------+ + + + | Result panel 188 | + + + + + +------+ + + | AST | 2025-03-16 | | 14 | (missing) | (missing) | | [facility] | 05:15:07 | [facility] | | | | + + + +------+ + + + + | Result panel 189 | + + + + + +------+ + + | ALT | 2025-03-16 | | 18 | (missing) | (missing) | | [facility] | 05:15:07 | [facility] | | | | + + + +------+ + + + + | Result panel 190 | + + + + + +------+ + + | ALP | 2025-03-16 | | 88 | (missing) | (missing) | | [facility] | 05:15:07 | [facility] | | | [...] 192 | + + + + + +--------+ [...] 193 | + + + + + +--------+ [...] 194 | + + + + + +--------+ [...] +--------+ + + | MCHC RBC | 2025-03-16 | | 31.7 | [...] 196 | + + + + + +-------+ [...] 197 | + + + + + +-------+ + + | Glucose | 2025-03-17 | | 131 | (missing) | (missing) | | [facility] | 12:09:07 | [facility] | | | [...] units | + + + +---------+ | 2025-01-23 [...]
[~2025-04-12 13:20] MED LIST changes: +IPRAT-ALBUT 0.5-3 ML INH; +KETOCONAZOLE15 GM TOP; +MORPHINE SULFAT60 MG PO; +NALOXONE HCL4 MG NAS; +XANAX0.5 MG PO; +ZOLPIDEM TARTRAT5 MG PO
[2025-04-12] MEDS ORDERED: LASIX40 MG PO (13:47)
[2025-04-12] MEDS ORDERED: ALBUTEROL/IPRATROPIUM 3 ML NEB INH PRN (14:00)
[2025-04-12 14:17] LABS: BASOPHILS 0.5 % (0.1-1.2); EOSINOPHILS 3.5 % (0.7-5.8); LYMPHOCYTES 25.0 % (19.3-51.7); MCH 29.9 PG (25.6-32.2); MCHC 32.7 g/dL (32.2-35.5); MCV 91.2 fL (79.4-94.8); MONOCYTES 8.0 % (4.7-12.5); NEUTROPHILS 61.6 % (34.0-71.1); RBC 3.75 M/uL (3.93-5.22)
[2025-04-12 15:02] LABS: ALT (SGPT) 29.0 U/L (14-59); AST (SGOT) 16.0 U/L (15-37); GLOMERULAR FILTRATION RATE,EST 83.0 mL/min (>60); PROTEIN, TOTAL 6.8 g/dL (6.4-8.2); UREA NITROGEN 9.0 mg/dL (7-18)
[2025-04-12] MEDS ORDERED: POTASSIUM CHLO10 MEQ PO (15:50)
[2025-04-12] MEDS ORDERED: POTASSIUM CHLORIDE 20 MEQ/15 ML CUP PO ONE (16:00)
[2025-04-12 16:06] VITALS: BP 177/80
--- NOTE | 2025-04-13 09:55 | EKG ---
[facility] [address] [place] [address] Signed Normal sinus rhythm Possible Left atrial enlargement Cannot rule out Inferior infarct , age undetermined Abnormal ECG When compared with ECG of 06-MAR-2025 14:21, No significant change was found Confirmed by Mina Rodriguez DO ([id number]) on 04/13/2025 9:55:10 AM Electronically Signed By: MINA RODRIGUEZ DO 04/13/25 0955 PATIENT NAME: LEA GARCIA GRACE Electrocardiogram DATE OF : 70 PHYSICIAN: MINA RODRIGUEZ DO REPORT #: [id number] REPORT IS CONFIDENTIAL AND NOT TO BE RELEASED WITHOUT AUTHORIZATION
== END 2025-04-12 16:12 | disposition home or self-care (01) ==
LOC: ED 13:20
PROVIDERS: Emergency Medicine
DX: E87.6 Hypokalemia (principal); R07.9 Chest pain, unspecified; F17.200 Nicotine dependence, unspecified, uncomplicated; Z88.0 Allergy status to penicillin; Z88.1 Allergy status to other antibiotic agents; Z79.899 Other long term (current) drug therapy
CPT/HCPCS: 36415; 71045; 80053; 82803; 83735; 83880; 84484; 85025; 93005; 93010; 99285-25; A9270

== ENCOUNTER 2025-04-16 11:23 | Inpatient (IN) | payer OTHER | END 2025-04-20 14:10 | disposition home health service (06) | DRG 205 | LOC: ED 11:23 → CCU 18:43 | PROVIDERS: ADMIT Internal Medicine | DX: J95.01 Hemorrhage from tracheostomy stoma (principal); J18.9 Pneumonia, unspecified organism; J44.0 Chronic obstructive pulmonary disease with (acute) lower respiratory infection; F41.9 Anxiety disorder, unspecified; R91.1 Solitary pulmonary nodule; M54.40 Lumbago with sciatica, unspecified side; G89.29 Other chronic pain; R10.9 Unspecified abdominal pain; I50.9 Heart failure, unspecified; E83.42 Hypomagnesemia; E87.6 Hypokalemia; G47.00 Insomnia, unspecified; F43.10 Post-traumatic stress disorder, unspecified; F25.0 Schizoaffective disorder, bipolar type; E11.9 Type 2 diabetes mellitus without complications; J39.8 Other specified diseases of upper respiratory tract; Z88.0 Allergy status to penicillin; Z88.5 Allergy status to narcotic agent; Z88.8 Allergy status to other drugs, medicaments and biological substances; Z86.711 Personal history of pulmonary embolism; Z90.5 Acquired absence of kidney; Z90.49 Acquired absence of other specified parts of digestive tract ==

== ENCOUNTER 2025-05-05 10:11 | Emergency (ER) | payer OTHER ==
[~2025-05-05] VITALS: Ht 162.6 cm; Wt 128.0 kg
--- OUTSIDE RECORDS SUMMARY | ~2025-05-05 | XMS | Continuity of Care Document ---
Demographics + + + | Address | [address] [address] | | | [place] [address] | + + + | Preferred Language | Unknown | + + + | Marital Status | | + + + | Catholic Affiliation | Unknown | + + + | Race | White | + + + | Ethnic Group | Not or | + + + Author + + + | Author | [facility] | + + + | Organization | [facility] | + + + | Address | [address] | | | [place] [address] | + + + | Phone | | + + + Care Team Providers + + + + | Care Text Transcriber Name | Role | Phone | + [...] + + + + + + | 2025-03-06 | Ketorolac | [facility] - | (no [...] + + + + + + | 2025-03-06 | Carbamazepine | [facility] - | Rash [...] + + + + + + | 2025-03-06 | Codeine | [facility] - | Rash | Moderate | | 00:00 | | [facility] | | | + + + + + + | 2025-03-06 | Amoxicillin | [facility] - | Rash [...] + + + + + + | 2025-03-06 | Carbamazepine | [facility] - | Rash [...] + + + + + + | 2025-03-06 | Ketorolac | [facility] - | (no reaction) | Mild | | 00:00 | | [facility] | | | + + + + + + | 2025-02-04 | Ketorolac | [facility] - | (no reaction) | Mild | | 00:00 | | [facility] | | | + + + + + + | 2025-02-10 | Ketorolac | [facility] - | (no reaction) | Mild | | 00:00 | | [facility] + + + + + + | 2025-03-06 | Nitrofurantoin | [facility] - | Rash [...] + + + + + + | 2025-03-06 | Carbamazepine | [facility] - | Rash [...] + + + + + + | 2025-03-06 | Codeine | [facility] - | Rash | Moderate | | 00:00 | | [facility] | | | + + + + + + | 2025-03-06 | Paliperidone | [facility] - | Rash [...] + + + + + + | 2025-03-06 | Paliperidone | [facility] - | Rash [...] + + + + + + | 2025-03-06 | Amoxicillin | [facility] - | Rash [...] + + + + + + | 2025-03-06 | Nitrofurantoin | [facility] - | Rash [...] + + + + + + | 2025-03-06 | Amoxicillin | [facility] - | Rash [...] + + + + + + | 2025-03-06 | Paliperidone | [facility] - | Rash [...] + + + + + + | 2025-03-06 | Penicillin | [facility] - | Rash [...] + + + + + + | 2025-03-06 | Nitrofurantoin | [facility] - | Rash [...] + + + + + + | 2025-03-06 | Penicillin | [facility] - | Rash [...] + + | 2025-02-10 | Penicillin | [facility] - | Rash | Moderate | | 00:00 | | [facility] | | | + + + + + + | 2025-03-06 | Penicillin | [facility] - | Rash | Moderate | | 00:00 | | [facility] | | | + + + + + + | 2025-02-04 | Codemaria elena | [facility] - | Rash | Moderate | | 00:00 | | [facility] | | | + + + + + + | 2025-02-10 | Codeine | [facility] - | Rash | Moderate | | 00:00 | | [facility] | | | + + + + + + | 2025-03-06 | Codeine | [facility] - | Rash [...] + + + + + + | 2025-03-06 | Ketorolac | [facility] - | (no reaction) | Mild | | 00:00 | | [facility] | | | + + + + + + Encounters No information. Functional Status No information. Immunizations No information. Medications + + + + | date | description | facility | + + + + | (no date) | LIDOCAINE 2% VISCOUS | [facility] | | | | [facility] | + + + + | (no date) | Lurasidone HCl | [facility] | | | | [facility] | + + + + | (no date) | Lurasidone HCl | [facility] | | | | [facility] | + + + + | (no date) | Lurasidone HCl | [facility] | | | [facility] | + + + + | (no date) | LURASIDONE HCL | [facility] | | | | [facility] | + + + + | (no date) | LURASIDONE HCL | [facility] | | | | [facility] | + + + + | (no date) | LURASIDONE HCL | [facility] | | | [facility] | + + + + | 2025-02-07 00:00 | LORAZEPAM | [facility] | | | | [facility] | + + + + | 2025-02-07 00:00 | LORAZEPAM | [facility] | | | | [facility] | + + + + | 2025-02-07 00:00 | LORAZEPAM | [facility] | | | | [facility] | + + + + | (no date) | OXYCODONE | [facility] | | | HCL/ACETAMINOPHEN | [facility] | + + + + | (no date) | OXYCODONE | [facility] | | | HCL/ACETAMINOPHEN | [facility] | + + + + | (no date) | OXYCODONE | [facility] | | | HCL/ACETAMINOPHEN | [facility] | + + + + | (no date) | OXYCODONE | [facility] | | | HCL/ACETAMINOPHEN | [facility] | + + + + | (no date) | OXYCODONE HCL | [facility] | | | [facility] | + + + + | (no date) | OXYCODONE HCL | [facility] | | | | [facility] | + + + + | (no date) | OXYCODONE HCL | [facility] | | | [facility] | + + + + | (no date) | OXYCODONE HCL | [facility] | [facility] | + + + + | (no date) | METHYLPHENIDATE HCL | [facility] | | | [facility] | + + + + | (no date) | METHYLPHENIDATE HCL | [facility] | | | [facility] | + + + + | (no ) | METHYLPHENIDATE HCL | [facility] | | | [facility] | + + + + | (no date) | METHYLPHENIDATE HCL | [facility] | | | [facility] | + + + + | (no date) | Lurasidone HCl | [facility] | | | [facility] | + + + + | (no date) | Lurasidone HCl | [facility] | | | | [facility] | + + + + | (no date) | Lurasidone HCl | [facility] | | | [facility] | + + + + | (no date) | Lurasidone HCl | [facility] | | | | [facility] | + + + + | 2025-03-17 00:00 | ALPRAZOLAM | [facility] | | | [facility] | + + + + | (no date) | IPRATROPIUM/ALBUTEROL | [facility] | | | SULFATE | [facility] | + + + + | (no date) | DULAGLUTIDE | [facility] | | | | [facility] | + + + + | (no date) | DULAGLUTIDE | [facility] | | | | [facility] | + + + + | (no date) | DULAGLUTIDE | [facility] | | | | [facility] | + + + + | (no date) | DULAGLUTIDE | [facility] | | | | [facility] | + + + + | (no date) | DULAGLUTIDE | [facility] | | | | [facility] | + + + + | (no date) | DULAGLUTIDE | [facility] | | | | [facility] | + + + + | (no date) | DULAGLUTIDE | [facility] | | | | [facility] | + + + + | (no date) | DULAGLUTIDE | [facility] | | | [facility] | + + + + | (no date) | Naloxone HCl | [facility] | | | [facility] | + + + + | 2025-03-13 00:00 | POTASSIUM CHLORIDE | [facility] | | | | [facility] | + + + + | (no date) | SULFASALAZINE | [facility] | | | | [facility] | + + + + | (no date) | SULFASALAZINE | [facility] | | | | [facility] | + + + + | (no date) | SULFASALAZINE | [facility] | | | | [facility] | + + + + | (no date) | SULFASALAZINE | [facility] | | | | [facility] | + + + + | (no date) | | [facility] | | | SULFAMETHOXAZOLE/TRIMETHOPR | [facility] | | | IM | | + + + + | (no date) | | [facility] | | | SULFAMETHOXAZOLE/TRIMETHOPR | [facility] | | | IM | | + + + + | (no date) | | [facility] | | | SULFAMETHOXAZOLE/TRIMETHOPR | [facility] | | | IM | | + + + + | (no date) | LAMOTRIGINE | [facility] | | | [facility] | + + + + | (no date) | LAMOTRIGINE | [facility] | | | | [facility] | + + + + | (no date) | LAMOTRIGINE | [facility] | | | | [facility] | + + + + | (no date) | LAMOTRIGINE | [facility] | | | | [facility] | + + + + | (no date) | GLIMEPIRIDE | [facility] | | | | [facility] | + + + + | (no date) | GLIMEPIRIDE | [facility] | | | | [facility] | + + + + | (no date) | GLIMEPIRIDE | [facility] | | | | [facility] | + + + + | (no date) | GLIMEPIRIDE | [facility] | | | [facility] | + + + + | 2025-03-13 00:00 | FUROSEMIDE | [facility] | | | [facility] | + + + + | (no date) | KETOCONAZOLE | [facility] | | | | [facility] | + + + + | (no date) | CIPROFLOXACIN HCL | [facility] | | | [facility] | + + + + | [...] + | (no date) | LEVOFLOXACIN | [facility] | | | [facility] | + + + + | (no date) | LEVOFLOXACIN | [facility] | | | | [facility] | + + + + | (no date) | LEVOFLOXACIN | [facility] | | | [facility] | + + + + | (no date) | LEVOFLOXACIN | [facility] | | | | [facility] | + + + + | 2025-03-17 00:00 | LEVOFLOXACIN | [facility] | | | [facility] | + + + + | (no date) | MIRTAZAPINE | [facility] | | | | [facility] | + + + + | (no date) | MIRTAZAPINE | [facility] | | | | [facility] | + + + + | (no date) | MIRTAZAPINE | [facility] | | | | [facility] | + + + + | (no date) | MIRTAZAPINE | [facility] | | | | [facility] | + + + + | (no date) | DULOXETINE HCL | [facility] | | | | [facility] | + + + + | (no date) | DULOXETINE HCL | [facility] | | | | [facility] | + + + + | (no date) | DULOXETINE HCL | [facility] | | | | [facility] | + + + + | (no ) | DULOXETINE HCL | [facility] | | | [facility] | + + + + | (no date) | DULOXETINE HCL | [facility] | | | | [facility] | + + + + | (no date) | DULOXETINE HCL | [facility] | | | | [facility] | + + + + | (no date) | DULOXETINE HCL | [facility] | | | | [facility] | + + + + | (no date) | DULOXETINE HCL | [facility] | | | | [facility] | + + + + | (no date) | ZOLPIDEM TARTRATE | [facility] | | | [facility] | + + + + | (no date) | ZOLPIDEM TARTRATE | [facility] | | | | [facility] | + + + + | (no date) | ZOLPIDEM TARTRATE | [facility] | | | | [facility] | + + + + | (no date) | ZOLPIDEM TARTRATE | [facility] | | | | [facility] | + + + + | (no date) | ZOLPIDEM TARTRATE | [facility] | | | | [facility] | + + + + | (no date) | TRAZODONE HCL | [facility] | | | [facility] | + + + + | (no date) | TRAZODONE HCL | [facility] | | | | [facility] | + + + + | (no date) | TRAZODONE HCL | [facility] | | | | [facility] | + + + + | (no date) | TRAZODONE HCL | [facility] | | | | [facility] | + + + + | (no date) | TRAZODONE HCL | [facility] | | | | [facility] | + + + + | (no date) | TRAZODONE HCL | [facility] | | | | [facility] | + + + + | (no date) | TRAZODONE HCL | [facility] | | | | [facility] | + + + + | (no date) | ASENAPINE MALEATE | [facility] | | | | [facility] | + + + + | (no date) | ASENAPINE MALEATE | [facility] | | | | [facility] | + + + + | (no date) | ASENAPINE MALEATE | [facility] | | | | [facility] | + + + + | (no date) | ASENAPINE MALEATE | [facility] | | | | [facility] | + + + + | (no date) | METFORMIN HCL | [facility] | | | [facility] | + + + + | (no date) | METFORMIN HCL | [facility] | | | [facility] | + + + + | (no date) | METFORMIN HCL | [facility] | | | | [facility] | + + + + | (no date) | METFORMIN HCL | [facility] | | | | [facility] | + + + + | (no date) | MORPHINE SULFATE | [facility] | | | | [facility] | + + + + | (no date) | HYDROmorphone HCL | [facility] | | | | [facility] | + + + + | (no date) | HYDROmorphone HCL | [facility] | | | | [facility] | + + + + | (no date) | HYDROmorphone HCL | [facility] | | | | [facility] | + + + + | (no date) | CHLORPROMAZINE HCL | [facility] | | | | [facility] | + + + + | (no date) | CHLORPROMAZINE HCL | [facility] | | | | [facility] | + + + + | (no date) | CHLORPROMAZINE HCL | [facility] | | | | [facility] | + + + + | (no date) | CHLORPROMAZINE HCL | [facility] | | | | [facility] | + + + + | (no date) | CHLORPROMAZINE HCL | [facility] | | | | [facility] | + + + + | (no date) | CHLORPROMAZINE HCL | [facility] | | | | [facility] | + + + + | (no date) | CHLORPROMAZINE HCL | [facility] | | | | [facility] | + + + + | (no date) | CHLORPROMAZINE HCL | [facility] | | | | [facility] | + + + + | (no date) | PROMETHAZINE HCL | [facility] | | | | [facility] | + + + + | (no date) | PROMETHAZINE HCL | [facility] | | | | [facility] | + + + + | (no date) | PROMETHAZINE HCL | [facility] | | | | [facility] | + + + + | (no date) | PROMETHAZINE HCL | [facility] | | | | [facility] | + + + + Problems + + + + | date | description | facility | + + + + | 2025-02-04 00:00 | Shortness of breath | [facility] | | | | [facility] | + + + + | 2025-02-04 00:00 | Shortness of breath | [facility] | | | | [facility] | + + + + | 2025-02-04 00:00 | Shortness of breath | [facility] | | | | [facility] | + + + + | 2025-02-04 00:00 | Shortness of breath | [facility] | | | | [facility] | + + + + | 2025-02-21 00:00 | Encounter for medical | [facility] | | | screening examination | [facility] | + + + + | 2025-02-21 00:00 | Encounter for medical | [facility] | | | screening examination | [facility] | + + + + | 2025-03-13 00:00 | Viral infection | [facility] | | | | [facility] | + + + + | 2025-03-14 00:00 | Hypomagnesemia | [facility] | | | | [facility] | + + + + | 2025-03-14 00:00 | Hypokalemia | [facility] | | | | [facility] | + + + + | 2025-03-14 00:00 | Pneumonia | [facility] | | | | [facility] | + + + + Procedures + + + + | date | description | facility | + + + + | 2025-03-14 00:00 | INTRODUCE OF OTH | [facility] | | | ANTI-INFECT INTO PERIPH | [facility] | | | BRAD ESTRADA APPROACH | | + + + + Results/Labs +--------+--------+ +---------+--------+---------+ | test | date | facility | value | unit | notes | +--------+--------+ +---------+--------+---------+ + + | Result panel 1 | + + + + + + + + + | SARS-CoV-2 | 2025-03-12 | | NEGATIVE | (missing) | (missing) | | RNA Resp Ql | 21:52:07 | [facility] | | | | + + + + + + + + + | Result panel 2 | + + + + + + + + + | FLUAV RNA | 2025-03-12 | | NEGATIVE | (missing) | (missing) | | Resp Ql | 21:52:07 | [facility] | | | | | EL+probe [facility] | | | | + + + + + + + + + | Result panel 3 | + + + + + + + + + | FLUBV RNA | 2025-03-12 | | NEGATIVE | (missing) | (missing) | | Resp Ql | 21:52:07 | [facility] | | | | | EL+probe [facility] | | | | + + + + + + + + + | Result panel 4 | + + + + + + + + + | RSV RNA | 2025-03-12 | | NEGATIVE | (missing) | (missing) | | Islt Ql | 21:52:07 | [facility] | | | | | EL+probe [facility] | | | | + + + + + + + + + | Result panel 5 | + + + + + +-------+ + + | Troponin I | 2025-03-14 | | 8.8 | (missing) | (missing) | | SerPl | 09:48:07 | [facility] | | | | | HS-mCnc [facility] | | | | + + + +-------+ + + + + | Result panel 6 | + + + + + +-------+ + + | Lactate | 2025-03-14 | | 0.9 | (missing) | (missing) | | Ser[facility] | 10:21:07 | [facility] | | | | + + + +-------+ + + + + | Result panel 7 | + + + + + + + + + | FLUAV Ag | 2025-03-14 | | NEGATIVE | (missing) | (missing) | | Upper resp | 10:22:07 | [facility] | | | | | Ql IA.rapid | [facility] | | | | + + + + + + + + + | Result panel 8 | + + + + + + + + + | FLUBV Ag | 2025-03-14 | | NEGATIVE | (missing) | (missing) | | Upper resp | 10:22:07 | [facility] | | | | | Ql IA.rapid [facility] | | | | + + + + + + + + + | Result panel 9 | + + + + + + + + + | | 2025-03-14 | | NEGATIVE | (missing) | (missing) | | SARS-CoV+BARBRA | 10:22:07 | [facility] | | | | | S-CoV-2 Ag | | - | | | | | Resp Ql | [facility] | | | | + + + + + + + + + | Result panel 10 | + + + + + + + + + | Annotation | 2025-03-14 | | SEE BELOW | (missing) | (missing) | | comment Imp | 10:22:07 | [facility] | | | | + + + + + + + + + | Result panel 11 | + + + + + + + + + | Color Ur | 2025-03-14 | | YELLOW | (missing) | (missing) | | Auto | 11:10:07 | [facility] | | | | + + + + + + + + + | Result panel 12 | + + + + + +---------+ + + | Character | 2025-03-14 | | CLEAR | (missing) | (missing) | | Ur | 11:10:07 | [facility] | | | | + + + +---------+ + + + + | Result panel 13 | + + + + + + + + + | Glucose Ur | 2025-03-14 | | NEGATIVE | (missing) | (missing) | | Ql Strip | 11:10:07 | [facility] | | | | + + + + + + + + + | Result panel 14 | + + + + + + + + + | Skye Carvajal | 2025-03-14 | | NEGATIVE | (missing) | (missing) | | Ql Strip | 11:10:07 | [facility] | | | | + + + + + + + + + | Result panel 15 | + + + + + + + + + | Ketones Ur | 2025-03-14 | | NEGATIVE | (missing) | (missing) | | Ql Strip | 11:10:07 | [facility] | | | | + + + + + + + + + | Result panel 16 | + + + + + +---------+ + + | Sp Gr Ur | 2025-03-14 | | 1.010 | (missing) | (missing) | | Strip | 11:10:07 | [facility] | | | | + + + +---------+ + + + + | Result panel 17 | + + + + + + + + + | Janet Floyd | 2025-03-14 | | NEGATIVE | (missing) | (missing) | | Strip | 11:10:07 | [facility] | | | | + + + + + + + + + | Result panel 18 | + + + + + +-------+ + + | pH Ur Strip | 2025-03-14 | | 6.5 | (missing) | (missing) | | | 11:10:07 | [facility] | | | | + + + +-------+ + + + + | Result panel 19 | + + + + + +------+ + + | Prot Ur | 2025-03-14 | | 30 | (missing) | (missing) | | Strip-mCnc | 11:10:07 | [facility] | | | | + + + +------+ + + + + | Result panel 20 | + + + + + + + + + | | 2025-03-14 | | NORMAL | (missing) | (missing) | | Urobilinogen | 11:10:07 | [facility] | | | | | Ur | [facility]-mCnc | | [facility] | | | | + + + + + + + + + | Result panel 21 | + + + + + + + + + | Nitrite Ur | 2025-03-14 | | NEGATIVE | (missing) | (missing) | | Ql Strip | 11:10:07 | [facility] | | | | + + + + + + + + + | Result panel 22 | + + + + + + + + + | Leukocyte | 2025-03-14 | | NEGATIVE | (missing) | (missing) | | esterase Ur | 11:10:07 | [facility] | | | | | Ql Strip | [facility] | | | | + + + + + + + + + | Result panel 23 | + + + + + +-------+ + + | RBC #/area | 2025-03-14 | | 0-1 | (missing) | (missing) | | UrnS HPF | 11:10:07 | [facility] | | | | + + + +-------+ + + + + | Result panel 24 | + + + + + +-------+ + + | WBC #/area | 2025-03-14 | | 0-1 | (missing) | (missing) | | UrnS HPF | 11:10:07 | [facility] | | | | + + + +-------+ + + + + | Result panel 25 | + + + + + + + + + | Epi Cells | 2025-03-14 | | SQUAMOUS 1+ | (missing) | (missing) | | #/area UrnS | 11:10:07 | [facility] | | | | | HPF | [facility] | | | | + + + + + + + + + | Result panel 26 | + + + + + + + + + | Crystals | 2025-03-14 | | NONE SEEN | (missing) | (missing) | | UrnS Micro | 11:10:07 | [facility] | | | | + + + + + + + + + | Result panel 27 | + + + + + + + + + | Bacteria | 2025-03-14 | | NONE SEEN | (missing) | (missing) | | #/area Obey | 11:10:07 | [facility] | | | | | HPF | [facility] | | | | + + + + + + + + + | Result panel 28 | + + + + + + + + + | Casts | 2025-03-14 | | NONE SEEN | (missing) | (missing) | | #/area UrnS | 11:10:07 | [facility] | | | | | LPF | [facility] | | | | + + + + + + + + + | Result panel 29 | + + + + + +------+ + + | Bacteria Ur | 2025-03-14 | | No | (missing) | (missing) | | Cult | 11:10:07 | [facility] | | | | + + + +------+ + + + + | Result panel 30 | + + + + + + + + + | Urn Spec | 2025-03-14 | | CLEAN CATCH | (missing) | (missing) | | Collect Meth | 11:10:07 | [facility] | | | | | [facility] | | | | [facility] | | | | + + + + + + + + + | Result panel 31 | + + + + + +---------+ + + | pH BldV | 2025-03-15 | | 7.447 | (missing) | (missing) | | | 14:56:07 | [facility] | | | | + + + +---------+ + + + + | Result panel 32 | + + + + + +--------+ + + | Neutrophils | 2025-03-16 | | 60.5 | (missing) | (missing) | | NFr Bld | 05:15:07 | [facility] | | | [facility] | | | | + + + +--------+ + + + + | Result panel 33 | + + + + + +--------+ + + | Lymphocytes | 2025-03-16 | | 25.4 | (missing) | (missing) | | NFr Bld | 05:15:07 | [facility] | [facility] | | | | + + + +--------+ + + + + | Result panel 34 | + + + + + +-------+ + + | Monocytes | 2025-03-16 | | 7.0 | (missing) | (missing) | | NFr Bld Auto | 05:15:07 | [facility] | | | | + + + +-------+ + + + + | Result panel 35 | + + + + + +-------+ + + | Eosinophil | 2025-03-16 | | 6.2 | (missing) | (missing) | | NFr Bld Auto | 05:15:07 | [facility] | | | | + + + +-------+ + + + + | Result panel 36 | + + + + + +-------+ + + | Basophils | 2025-03-16 | | 0.3 | (missing) | (missing) | | NFr Bld Auto | 05:15:07 | [facility] | | | | + + + +-------+ + + + + | Result panel 37 | + + + + + +-------+---------+ + | Glucose | 2025-03-16 | | 144 | mg/dL | (missing) | | SerPl-mCnc | 05:15:07 | [facility] | | | | + + + +-------+---------+ + + + | Result panel 38 | + + + + + +-----+---------+ + | BUN | 2025-03-16 | | 9 | mg/dL | (missing) | | SerPl-mCnc | 05:15:07 | [facility] | | | | + + + +-----+---------+ + + + | Result panel 39 | + + + + + +--------+---------+ + | Creat | 2025-03-16 | | 0.94 | mg/dL | (missing) | | SerPl-mCnc | 05:15:07 | [facility] | | | | + + + +--------+---------+ + + + | Result panel 40 | + + + + + +------+ + + | eGFRcr | 2025-03-16 | | 72 | (missing) | (missing) | | SerPlBld | 05:15:07 | [facility] | | | | | CKD-EPI 2020 | [facility] | | | | + + + +------+ + + + + | Result panel 41 | + + + + + +--------+ + + | BUN/Creat | 2025-03-16 | | 9.57 | (missing) | (missing) | | SerPl | 05:15:07 | [facility] | | | | + + + +--------+ + + + + | Result panel 42 | + + + + + +--------+ + + | WBC # Bld | 2025-03-16 | | 9.01 | (missing) | (missing) | | Auto | 05:15:07 | [facility] | | | | + + + +--------+ + + + + | Result panel 43 | + + + + + +-------+ + + | Sodium | 2025-03-16 | | 138 | (missing) | (missing) | | [facility] | 05:15:07 | [facility] | | | | + + + +-------+ + + + + | Result panel 44 | + + + + + +-------+ + + | Potassium | 2025-03-16 | | 3.6 | (missing) | (missing) | | SerPl-sCnc | 05:15:07 | [facility] | | | | + + + +-------+ + + + + | Result panel 45 | + + + + + +-------+ + + | Chloride | 2025-03-16 | | 102 | (missing) | (missing) | | [facility] | 05[facility]15[facility]07 | [facility] | | | | + + + +-------+ + + + + | Result panel 46 | + + + + + +------+ + + | CO2 | 2025-03-16 | | 29 | (missing) | (missing) | | SerPl-sCnc | 05:15:07 | [facility] | | | | + + + +------+ + + + + | Result panel 47 | + + + + + +--------+ + + | Anion Gap | 2025-03-16 | | 10.6 | (missing) | (missing) | | SerPl | 05:15:07 | [facility] | | | | | Calculated.4 | [facility] | | | | + + + +--------+ + + + + | Result panel 48 | + + + + + +-------+---------+ + | Calcium | 2025-03-16 | | 8.6 | mg/dL | (missing) | | [facility] | 05:15:07 | [facility] | | | | + + + +-------+---------+ + + + | Result panel 49 | + + + + + +-------+---------+ + | Magnesium | 2025-03-16 | | 2.3 | mg/dL | (missing) | | [facility] | 05:15:07 | [facility] | | | | + + + +-------+---------+ + + + | Result panel 50 | + + + + + +-------+ + + | Prot | 2025-03-16 | | 6.5 | (missing) | (missing) | | [facility] | 05:15:07 | [facility] | | | | + + + +-------+ + + + + | Result panel 51 | + + + + + +-------+ + + | Albumin | 2025-03-16 | | 3.1 | (missing) | (missing) | | SerPl-mCsusy | 05:15:07 | [facility] | | | | + + + +-------+ + + + + | Result panel 52 | + + + + + +-------+ + + | Globulin | 2025-03-16 | | 3.4 | (missing) | (missing) | | Ser-mCnc | 05:15:07 | [facility] | | | | + + + +-------+ + + + + | Result panel 53 | + + + + + +--------+ + + | RBC # Bld | 2025-03-16 | | 3.82 | (missing) | (missing) | | Auto | 05:15:07 | [facility] | | | | + + + +--------+ + + + + | Result panel 54 | + + + + + +--------+ + + | | 2025-03-16 | | 0.91 | (missing) | (missing) | | Albumin/Glob | 05:15:07 | [facility] | | | | | SerPl | [facility] | | | | + + + +--------+ + + + + | Result panel 55 | + + + + + +-------+---------+ + | Bilirub | 2025-03-16 | | 0.3 | mg/dL | (missing) | | SerPl-mCnc | 05:15:07 | [facility] | | | | + + + +-------+---------+ + + + | Result panel 56 | + + + + + +------+ + + | AST | 2025-03-16 | | 14 | (missing) | (missing) | | SerPl-cCnc | 05:15:07 | [facility] | | | | + + + +------+ + + + + | Result panel 57 | + + + + + +------+ + + | ALT | 2025-03-16 | | 18 | (missing) | (missing) | | [facility] | 05:15:07 | [facility] | | | | + + + +------+ + + + + | Result panel 58 | + + + + + +------+ + + | ALP | 2025-03-16 | | 88 | (missing) | (missing) | | [facility] | 05:15:07 | [facility] | | | | + + + +------+ + + + + | Result panel 59 | + + + + + +--------+ + + | Hgb | 2025-03-16 | | 11.6 | (missing) | (missing) | | Bld-mCnc | 05:15:07 | [facility] | | | | + + + +--------+ + + + + | Result panel 60 | + + + + + +--------+ + + | Hct VFr.DF | 2025-03-16 | | 36.6 | (missing) | (missing) | | Bld Auto | 05:15:07 | [facility] | | | | + + + +--------+ + + + + | Result panel 61 | + + + + + +--------+ + + | RBC Auto | 2025-03-16 | | 95.8 | (missing) | (missing) | | | 05:15:07 | [facility] | | | | + + + +--------+ + + + + | Result panel 62 | + + + + + +--------+ + + | MCH RBC Qn | 2025-03-16 | | 30.4 | (missing) | (missing) | | Auto | 05:15:07 | [facility] | | | | + + + +--------+ + + + + | Result panel 63 | + + + + + +--------+ + + | [facility] | 2025-03-16 | | 31.7 | (missing) | (missing) | | Auto-[facility] | 05:15:07 | [facility] | | | | + + + +--------+ + + + + | Result panel 64 | + + + + + +-------+ + + | Platelet # | 2025-03-16 | | 212 | (missing) | (missing) | | Bld Auto | 05:15:07 | [facility] | | | | [facility] | | | | + + + +-------+ + + + + | Result panel 65 | + + + + + +-------+ + + | Glucose | 2025-03-17 | | 131 | (missing) | (missing) | | Bld-mCnc | 12:09:07 | [facility] | | | | | [...] units | + + + +---------+ | 2025-02-04 [...] lb | + + + +---------+ | 2025-03-06 00:00 | BMI | 46.2 | kg/m2 | + + + +---------+ | 2025-03-06 00:00 | BP_diastolic | 54 | mmHg | + + + +---------+ | 2025-03-06 00:00 | BP_systolic | 149 | mmHg | + + + +---------+ | 2025-03-06 00:00 | heart_rate | 73 | /min | + + + +---------+ | 2025-03-06 00:00 | height_metric | 162.56 | cm | + + + +---------+ | 2025-03-06 00:00 | height_standard | 64 | in | + + + +---------+ | 2025-03-06 00:00 | o2_saturation | 94 | % | + + + +---------+ | 2025-03-06 00:00 | respiration_rate | 19 | /min | + + + +---------+ | 2025-03-06 00:00 | | 98.7 | F | | | temperature_standar | | | | | d | | | + + + +---------+ | 2025-03-06 00:00 | weight_metric | 121.999 | kg | + + + +---------+ | 2025-03-06 00:00 | weight_standard | 268.962 | lb | + + + +---------+ | 2025-03-12 00:00 | BMI | 48.3 | kg/m2 | + + + +---------+ | 2025-03-12 00:00 | height_metric | 162.56 | cm | + + + +---------+ | 2025-03-12 00:00 | height_standard | 64 | in | + + + +---------+ | 2025-03-12 00:00 | weight_metric | 127.7 | kg | + + + +---------+ | 2025-03-12 00:00 | weight_standard | 281.531 | lb | + + + +---------+ | 2025-03-13 00:00 | BP_diastolic | 89 | mmHg | + + + +---------+ | 2025-03-13 00:00 | BP_systolic | 167 | mmHg | + + + +---------+ | 2025-03-13 00:00 | heart_rate | 84 | /min | + + + +---------+ | 2025-03-13 00:00 | o2_saturation | 94 | % | + + + +---------+ | 2025-03-13 00:00 | respiration_rate | 18 | /min | + + + +---------+ | 2025-03-13 00:00 | | 99 | F | | | temperature_standar | | | | | d | | | + + + +---------+ | 2025-03-14 00:00 | BMI | 46.3 | kg/m2 | + + + +---------+ | 2025-03-14 00:00 | height_metric | 162.56 | cm | + + + +---------+ | 2025-03-14 00:00 | height_standard | 64 | in | + + + +---------+ | 2025-03-14 00:00 | weight_metric | 122.399 | kg | + + + +---------+ | 2025-03-14 00:00 | weight_standard | 269.843 | lb | + + + +---------+ | 2025-03-17 00:00 | BP_diastolic | 73 | mmHg | + + + +---------+ | 2025-03-17 00:00 | BP_systolic | 155 | mmHg | + + + +---------+ | 2025-03-17 00:00 | heart_rate | 91 | /min | + + + +---------+ | 2025-03-17 00:00 | o2_saturation | 97 | % | + + + +---------+ | 2025-03-17 00:00 | respiration_rate | 17 | /min | + + + +---------+ | 2025-03-17 00:00 | | 98.5 | F | | | temperature_standar | | | | | d | | | + + + +---------+"
[~2025-05-05 10:11] MED LIST changes: +BUDESONIDE0.25 MG/2 INH; +BUSPIRONE HCL15 MG PO; +METHYLPHENIDATE5 MG PO; +POLYETHYLENE GL17 GM PO; +POTASSIUM CHLO10 MEQ PO; +POTASSIUM CHLO20 ME1 PO; +SENNA8.6 MG PO; +SODIUM CHLORIDE3 ML INH; +TRANSDERM-SCOP1 EACH TD; +VENTOLIN HFA18 GM INH
[2025-05-05] MEDS ORDERED: SODIUM CHLORIDE 0.9% 1,000 ML IV ONE (10:45)
[2025-05-05 11:29] LABS: BASOPHILS 0.4 % (0.1-1.2); EOSINOPHILS 1.3 % (0.7-5.8); LYMPHOCYTES 22.5 % (19.3-51.7); MCH 29.6 PG (25.6-32.2); MCHC 32.9 g/dL (32.2-35.5); MCV 90.0 fL (79.4-94.8); MONOCYTES 4.1 % (4.7-12.5); NEUTROPHILS 71.1 % (34.0-71.1); RBC 4.32 M/uL (3.93-5.22)
[2025-05-05] MEDS ORDERED: HYDROmorphone HCL 1 MG/ML SYR IV PRN (11:45)
[2025-05-05 11:57] LABS: ALT (SGPT) 38.0 U/L (14-59); AST (SGOT) 20.0 U/L (15-37); GLOMERULAR FILTRATION RATE,EST 79.0 mL/min (>60); PROTEIN, TOTAL 7.0 g/dL (6.4-8.2); UREA NITROGEN 13.0 mg/dL (7-18)
[2025-05-05 15:39] LABS: BLOOD/HGB, URINE NEGATIVE (Negative); KETONE, URINE NEGATIVE (Negative); LEUK ESTERASE, URINE NEGATIVE (negative); NITRITE, URINE NEGATIVE (negative)
[2025-05-05 15:42] VITALS: BP 126/67
== END 2025-05-05 15:57 | disposition home or self-care (01) ==
LOC: ED 10:11
PROVIDERS: Emergency Medicine
DX: R10.32 Left lower quadrant pain (principal); F17.200 Nicotine dependence, unspecified, uncomplicated; Z79.51 Long term (current) use of inhaled steroids; Z79.899 Other long term (current) drug therapy; Z79.84 Long term (current) use of oral hypoglycemic drugs; Z88.0 Allergy status to penicillin; Z88.5 Allergy status to narcotic agent; Z88.8 Allergy status to other drugs, medicaments and biological substances
CPT/HCPCS: 36415; 74177; 80053; 81003; 83690; 83735; 85025; 96361; 96374; 96375; 96376; 99284-25; J1171; J2405; J7030; Q9967